=== PATIENT | female | born 1955 | race Caucasian/White ===

== ENCOUNTER → 2016-04-24 | Outpatient (CLI) | payer MEDICARE, OTHER ==
--- NOTE | 2016-04-24 18:19 | PN ---
DATE OF SERVICE: 04/24/2016 A 60-year-old lady who has [facility] of obstructive sleep apnea-hypopnea syndrome. Recently patient was started on treatment with CPAP and she is using equipment every night. Feels better with the machine during the sleep and during the day. [place] Sleepiness Scale today is 5. I discussed with the patient results of the test in detail. I checked the patient's CPAP unit. The CPAP pressure is 13 cm of water. Patient is using equipment 28 out of 30 nights for more than 4 hours. Leak is 11 L/min, which is acceptable range. Apnea-hypopnea index reading from the machine for the last month is 1.0. MEDICATIONS: Coreg, folic acid, metformin, lisinopril, Lasix, Lyrica, aspirin, atorvastatin, [place], Percocet. PHYSICAL EXAMINATION: GENERAL: The patient in no distress. VITAL SIGNS: BP 134/76, HR 94, RR 16. Weight 251. Temp 97.6. Oxygen saturation at room air 94%. HEENT: PERRLA, EOMI, Evaluation of the oropharynx showed low position of soft palate. NECK: Supple. No JVD, Thyroid is not palpable. LUNGS: Clear to percussion and to auscultation. Good air exchange. No wheezing or rhonchi. HEART: S1, S2 regular. No murmurs, gallops, or rubs. ABDOMEN: Obese. Soft and nontender. Bowel sounds are present. No organomegaly appreciated. HOUSE MANAGER: Awake, alert, and oriented x3. Cranial nerves 2 to 7 intact. There is no fasciculation or atrophy noted. No focal deficits observed. IMPRESSION: 1. Mild obstructive sleep apnea-hypopnea syndrome on control with CPAP at 13 cm of water. Patient demonstrated very good compliance with treatment and is benefiting from treatment. 2. Obesity. 3. Hypertension. 4. History of cardiac arrhythmia, status post cardiac ablation. 5. Diabetes mellitus. 6. Hyperlipidemia. 7. History of kidney stones. 8. Status post nephrotomy. 9. Status post section. 10. Status post legs venous surgery. 11. Status post laminectomy. 12. 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 13. Status post hysterectomy. 14. Status post permanent pacemaker insertion. 15. Status post bilateral knee replacement. 16. Status post lithotripsy. PLAN: 1. Patient will continue to use CPAP treatment every night for the whole night. 2. Losing weight. 3. Sleep hygiene with regular time in bed for at least 8 hours. 4. No driving if feeling any sleepiness. Thank you very much for allowing me to participate in the management your patient. Sincerely, Lg Tafoya MD, PhD, FAASM Diplomat of [place] [employer], Sleep Medicine Board by [place] [employer] [place] [employer] Tape Machine Tailer of [facility]
== END | disposition home or self-care (01) ==
LOC: SLEEP 13:46
PROVIDERS: ATTEND Internal Medicine
DX: G47.33 Obstructive sleep apnea (adult) (pediatric) (principal); E66.9 Obesity, unspecified; I49.9 Cardiac arrhythmia, unspecified; E11.9 Type 2 diabetes mellitus without complications; E78.5 Hyperlipidemia, unspecified; Z87.442 Personal history of urinary calculi; Z93.6 Other artificial openings of urinary tract status; Z95.0 Presence of cardiac pacemaker; Z96.653 Presence of artificial knee joint, bilateral; Z79.82 Long term (current) use of aspirin; Z79.899 Other long term (current) drug therapy; Z79.84 Long term (current) use of oral hypoglycemic drugs

== ENCOUNTER 2016-08-02 10:40 | Observation (INO) | payer MEDICARE, OTHER ==
[2016-08-02] MEDS ORDERED: ASPIRIN 81 MG CHEW PO STA (10:50)
--- NOTE | 2016-08-02 10:50 | ED ---
General Adult HPI - General Chief complaint: Chest Pain Stated complaint: Chest Pain/Pacemaker Time Seen by Provider: 08/02/16 10:45 Source: patient, RN notes reviewed, old records reviewed Mode of arrival: wheelchair Limitations: no limitations - History of Present Illness Initial comments: This is a 60-year-old female here for evaluation of chest pain. Patient has history of A. fib high cholesterol hypertensive diabetes. Patient coming in with anterior heavy chest pain shortness of breath and diaphoresis that started about 4:30 AM. Patient did waited out and it did lalitha a little bit. Did get mildly improved with no modifying factors. Patient's pain has continued. She still complaining of chest pain or shortness of breath at this time. No recent travel history no sick contacts no prior cardiac evaluation - Related Data Home Medications Medication Instructions Recorded Confirmed Carvedilol [Coreg] 12.5 mg PO BID 11/04/13 07/05/15 Folic Acid 0.4 mg PO DAILY 11/04/13 07/05/15 Furosemide [Lasix] 10 mg PO HS 11/04/13 07/05/15 Lisinopril [Zestril] 20 mg PO HS 11/04/13 07/05/15 Cyanocobalamin [Vitamin B-12] 500 mcg PO DAILY 05/06/14 07/05/15 Magnesium Oxide [Mag-Ox] 250 mg PO BID 05/06/14 07/05/15 Insulin Aspart [NovoLOG] 9 unit SQ AC-BRKFST 05/29/14 07/05/15 Insulin Detemir [Levemir] 30 unit SQ HS 11/17/14 07/05/15 Insulin Aspart [NovoLOG] 11 unit SQ AC-LUNCH 07/03/15 07/05/15 Insulin Aspart [NovoLOG] 12 unit SQ AC-SUPPER 07/03/15 07/05/15 Pregabalin [Lyrica] 150 mg PO BID PRN 07/03/15 07/05/15 metFORMIN HCL [Glucophage] 500 mg PO BID 07/03/15 07/05/15 Previous Rx's Medication Instructions Recorded Albuterol Nebulized [Ventolin 2.5 mg INHALATION RT-Q4H PRN #0 07/09/15 Nebulized] nebu Docusate [Colace] 100 mg PO BID #60 capsule 07/09/15 HYDROcodone/APAP 10-325MG [[place] 1 tab PO Q4HR PRN #90 tab 07/09/15 10-325] INSULIN LISPRO (humaLOG) [humaLOG 0 unit SQ ACHS vial 07/09/15 (formulary)] Multivitamins, Thera [Multivitamin 1 each PO DAILY@1200 tab 07/09/15 (formulary)] Warfarin [Coumadin] 2.5 mg PO DAILY #28 tab 07/09/15 Allergies Allergy/AdvReac Type Severity Reaction Status Date / Time No Known Allergies Allergy Verified 08/02/16 10:46 Review of Systems ROS Statement: Those systems with pertinent positive or pertinent negative responses have been documented in the HPI. ROS Other: All systems not noted in ROS Statement are negative. Past Medical History Past Medical History: Atrial Fibrillation, Heart Failure, Diabetes Mellitus, Hyperlipidemia, Hypertension, Musculoskeletal Disorder, Osteoarthritis (OA), Sleep Apnea/CPAP/BIPAP Additional Past Medical History / Comment(s): Arrhythmia, Afib-Converted with ablation 05/2013, Cardiomyopathy,DDD, N/T BLE,Scoliosis,Anemia, KIDNEY STONES, CURRENTLY BEING TX FOR YEAST INFECTION IN BLOOD-HAS PICC LINE RT UPPER ARM History of Any Multi-Drug Resistant Organisms: None Reported Past Surgical History: AICD, Back Surgery, Cardiac Ablation, Section, Cholecystectomy, Heart Catheterization, Hysterectomy, Orthopedic Surgery, Pacemaker Additional Past Surgical History / Comment(s): Varicose Vein Stripping,Rt Knee scope, D & C, Colonoscopy, Lithotripsy, Removal of kidney stones,LT TOTAL KNEE REPLACEMENT Past Anesthesia/Blood Transfusion Reactions: No Reported Reaction Additional Past Anesthesia/Blood Transfusion Reaction / Comment(s): HAS HAD NO PROBLEMS WITH PRIOR BLOOD TRANSFUSIONS Type of Cardiac Device: Permanent Pacemaker, AICD Device Placement Date:: 03/14/2011-Metronic LT CHEST Past Psychological History: Anxiety, Depression Additional Psychological History / Comment(s): . Lives with her son in [place]. She is on disability. She has no experience. She has no travel history. She is a lifelong nonsmoker. No history of recreational drug use. No history of alcohol use. No animals in the home at this time. Smoking Status: Never smoker Past Alcohol Use History: None Reported Past Drug Use History: None Reported - Past Family History Father Family Medical History: Cancer Brother(s) Family Medical History: Cancer Sister(s) Family Medical History: Cancer Mother Family Medical History: Cancer General Exam Limitations: no limitations General appearance: alert, in no apparent distress Head exam: Present: atraumatic, normocephalic, normal inspection Eye exam: Present: normal appearance, PERRL, EOMI. Absent: scleral icterus, conjunctival injection, periorbital swelling ENT exam: Present: normal exam, mucous membranes moist Neck exam: Present: normal inspection. Absent: tenderness, meningismus, lymphadenopathy Respiratory exam: Present: normal lung sounds bilaterally. Absent: respiratory distress, wheezes, rales, rhonchi, stridor Cardiovascular Exam: Present: regular rate, normal rhythm, normal heart sounds. Absent: systolic murmur, diastolic murmur, rubs, gallop, clicks GI/Abdominal exam: Present: soft, normal bowel sounds. Absent: distended, tenderness, guarding, rebound, rigid Extremities exam: Present: normal inspection, full ROM, normal capillary refill. Absent: tenderness, pedal edema, joint swelling, calf tenderness Back exam: Present: normal inspection Neurological exam: Present: alert, oriented X3, CN II-XII intact Psychiatric exam: Present: normal affect, normal mood Skin exam: Present: warm, dry, intact, normal color. Absent: rash Course Vital Signs 08/02/16 08/02/16 08/02/16 10:44 11:00 11:30 Temperature 99.0 F Pulse Rate 59 L 58 L 54 L Respiratory 20 18 16 Rate Blood Pressure 120/85 129/59 134/73 O2 Sat by Pulse 99 98 95 Oximetry 08/02/16 12:07 Temperature Pulse Rate 54 L Respiratory 18 Rate Blood Pressure 136/70 O2 Sat by Pulse 96 Oximetry - Reevaluation(s) Reevaluation #1: 08/02/16 12:15 At this point patient still is with chest pain EKG Findings - EKG Comments: EKG Findings:: EKG shows sinus rhythm rate of 62, ID 170, QRS 140, QTC 468, occasional PVC Medical Decision Making - Medical Decision Making 60 [id number] chest pain, typical chest pain in a patient with high risk, high cardiac risk, patient will be admitted for anticoagulation, serial troponins and cardiac observation - Lab Data Result diagrams: 08/02/16 10:55 08/02/16 10:55 Lab Results 0608/02/16 08/02/16 Range/Units 10:55 10:55 10:55 WBC 4.7 (3.8-10.6) k/uL RBC 3.70 L (3.80-5.40) m/uL Hgb 11.2 L (11.4-16.0) gm/dL Hct 33.8 L (34.0-46.0) % MCV 91.3 (80.0-100.0) fL MCH 30.3 (25.0-35.0) pg MCHC 33.1 (31.0-37.0) g/dL RDW 15.1 (11.5-15.5) % Plt Count 109 L (150-450) k/uL Neutrophils % 57 % Lymphocytes % 29 % Monocytes % 5 % Eosinophils % 6 % Basophils % 0 % Neutrophils # 2.7 (1.3-7.7) k/uL Lymphocytes # 1.4 (1.0-4.8) k/uL Monocytes # 0.3 (0-1.0) k/uL Eosinophils # 0.3 (0-0.7) k/uL Basophils # 0.0 (0-0.2) k/uL PT (9.0-12.0) sec INR (<1.1) APTT (22.0-30.0) sec Sodium 144 (137-145) mmol/L Potassium 4.3 (3.5-5.1) mmol/L Chloride 110 H (98-107) mmol/L Carbon Dioxide 26 (22-30) mmol/L Anion Gap 8 mmol/L BUN 34 H (7-17) mg/dL Creatinine 1.00 (0.52-1.04) mg/dL Est GFR (MDRD) Af Amer >60 (>60 ml/min/1.73 sqM) Est GFR (MDRD) Non-Af 56 (>60 ml/min/1.73 sqM) Glucose 198 H (74-99) mg/dL Calcium 9.2 (8.4-10.2) mg/dL Magnesium 1.8 (1.6-2.3) mg/dL Total Bilirubin 0.9 (0.2-1.3) mg/dL AST 24 (14-36) U/L ALT 29 (9-52) U/L Alkaline Phosphatase 93 (38-126) U/L Total Creatine Kinase 122 (30-135) U/L CK-MB (CK-2) 0.8 (0.0-2.4) ng/mL CK-MB (CK-2) Rel Index 0.7 Troponin I <0.012 (0.000-0.034) ng/mL Total Protein 6.2 L (6.3-8.2) g/dL Albumin 3.7 (3.5-5.0) g/dL Lipase (23-300) U/L 08/02/16 08/02/16 Range/Units 10:55 10:55 WBC (3.8-10.6) k/uL RBC (3.80-5.40) m/uL Hgb (11.4-16.0) gm/dL Hct (34.0-46.0) % MCV (80.0-100.0) fL MCH (25.0-35.0) pg MCHC (31.0-37.0) g/dL RDW (11.5-15.5) % Plt Count (150-450) k/uL Neutrophils % % Lymphocytes % % Monocytes % % Eosinophils % % Basophils % % Neutrophils # (1.3-7.7) k/uL Lymphocytes # (1.0-4.8) k/uL Monocytes # (0-1.0) k/uL Eosinophils # (0-0.7) k/uL Basophils # (0-0.2) k/uL PT 10.8 (9.0-12.0) sec INR 1.1 (<1.1) APTT 23.0 (22.0-30.0) sec Sodium (137-145) mmol/L Potassium (3.5-5.1) mmol/L Chloride (98-107) mmol/L Carbon Dioxide (22-30) mmol/L Anion Gap mmol/L BUN (7-17) mg/dL Creatinine (0.52-1.04) mg/dL Est GFR (MDRD) Af Amer (>60 ml/min/1.73 sqM) Est GFR (MDRD) Non-Af (>60 ml/min/1.73 sqM) Glucose (74-99) mg/dL Calcium (8.4-10.2) mg/dL Magnesium (1.6-2.3) mg/dL Total Bilirubin (0.2-1.3) mg/dL AST (14-36) U/L ALT (9-52) U/L Alkaline Phosphatase (38-126) U/L Total Creatine Kinase (30-135) U/L CK-MB (CK-2) (0.0-2.4) ng/mL CK-MB (CK-2) Rel Index Troponin I (0.000-0.034) ng/mL Total Protein (6.3-8.2) g/dL Albumin (3.5-5.0) g/dL Lipase 164 (23-300) U/L - Radiology Data Radiology results: report reviewed (Chest x-ray is negative for acute disease), image reviewed Critical Care Time Critical Care Time: Yes Total Critical Care Time: 31 Disposition Clinical Impression: Chest pain Disposition: ADMITTED IP TO THIS [facility] Condition: Undetermined Referrals: Vishal Snell MD [Primary Care Provider] - 1-2 days
[2016-08-02 11:15] LABS: Basophils % (A) 0 %; CH 30.7; CHCM 33.8; Eosinophils # (A) 0.3 k/uL (0-0.7); Eosinophils % (A) 6 %; HCT 33.8 % (34.0-46.0); HDW 3.15; HGB 11.2 gm/dL (11.4-16.0); Luc # (Auto) 0.11; Luc % (Auto) 2; Lymphocytes # (A) 1.4 k/uL (1.0-4.8); Lymphocytes % (A) 29 %; MCH 30.3 pg (25.0-35.0); MCHC 33.1 g/dL (31.0-37.0); MCV 91.3 fL (80.0-100.0); Mean Platelet Volume 8.1; Monocytes # (A) 0.3 k/uL (0-1.0); Monocytes % (A) 5 %; Neutrophils # (A) 2.7 k/uL (1.3-7.7); Neutrophils % (A) 57 %; RDW 15.1 % (11.5-15.5); WBC 4.7 k/uL (3.8-10.6); WBC (Perox) 4.75
--- NOTE | 2016-08-02 11:35 | XR ---
EXAMINATION TYPE: XR chest 2V DATE OF EXAM: 08/02/2016 COMPARISON: 07/07/2015 HISTORY: Shortness of breath TECHNIQUE: Frontal and lateral views of the chest are obtained. FINDINGS: Scattered senescent parenchymal changes noted. Hyperinflation compatible with COPD. No evidence for infiltrate. No evidence for atelectasis. Heart size is stable. Mediastinal structures are stable and grossly unremarkable. No evidence for hilar prominence. Degenerative changes dorsal spine. IMPRESSION: 1. No evidence for acute pulmonary disease.
[2016-08-02 11:37] LABS: Creatine Kinase 122 U/L (30-135)
[2016-08-02 11:39] LABS: ALT 29 U/L (9-52); AST 24 U/L (14-36); Alkaline Phosphatase 93 U/L (38-126); Anion Gap 8 mmol/L; Blood Urea Nitrogen 34 mg/dL (7-17); Calcium 9.2 mg/dL (8.4-10.2); Carbon Dioxide 26 mmol/L (22-30); Chloride 110 mmol/L (98-107); Glucose 198 mg/dL (74-99); Magnesium 1.8 mg/dL (1.6-2.3); Non-African American GFR(MDRD) 56 (>60 ml/min/1.73 sqM); Potassium 4.3 mmol/L (3.5-5.1); Sodium 144 mmol/L (137-145); Total Bilirubin 0.9 mg/dL (0.2-1.3); Total Protein 6.2 g/dL (6.3-8.2)
[2016-08-02 11:46] LABS: INR 1.1 (<1.1); Prothrombin Time 10.8 sec (9.0-12.0)
[2016-08-02 11:49] LABS: Creatine Kinase MB 0.8 ng/mL (0.0-2.4); Troponin I <0.012 ng/mL (0.000-0.034)
[2016-08-02] MEDS: NITROGLYCERIN SL TABS 0.4 MG TAB SUBLINGUAL PRN ×2 (12:11→12:20)
[2016-08-02] MEDS ORDERED: HEPARIN SODIUM,PORCINE 5,000 UNIT/ML 1 ML VIAL IV PRN (12:16)
[2016-08-02] MEDS ORDERED: HEPARIN SODIUM,PORCINE 5,000 UNIT/ML 1 ML VIAL IV ONE (12:16)
[2016-08-02] MEDS: HEPARIN SODIUM,PORCINE/D5W PMX 25,000 UNIT in DEXTROSE/WATER 1 500ML.BAG IV SCH (12:33)
[2016-08-02 14:07] VITALS: BMI 43.0
[2016-08-02] MEDS ORDERED: ALBUTEROL NEBULIZED 2.5 MG/3 ML INHALATION PRN (15:12)
[2016-08-02] MEDS ORDERED: oxyCODONE-APAP 10-325MG 1 EACH TAB PO PRN (15:12)
[2016-08-02 17:04] LABS: Glucose,Whole Blood 150 mg/dL (75-99)
[2016-08-02] MEDS: BUTALB/APAP/CAFF 50-325-40MG TAB PO PRN ×2 (17:38→23:10)
[2016-08-02] MEDS: INSULIN LISPRO (humaLOG) 300 UNIT/3 ML VIAL SQ SCH (18:14)
[2016-08-02] MEDS: metFORMIN 500 MG TAB PO SCH (19:44)
[2016-08-02] MEDS: CARVEDILOL 12.5 MG TAB PO SCH (19:45)
[2016-08-02 20:08] LABS: Glucose,Whole Blood 135 mg/dL (75-99)
[2016-08-02 20:16] LABS: Creatine Kinase 98 U/L (30-135); Creatine Kinase MB 0.7 ng/mL (0.0-2.4); Troponin I <0.012 ng/mL (0.000-0.034)
[2016-08-02] MEDS ORDERED: PREGABALIN 75 MG CAP PO SCH (21:00)
[2016-08-02] MEDS ORDERED: INSULIN DETEMIR 100 UNIT/ML 10 ML VIAL SQ SCH (21:00)
[2016-08-02] MEDS ORDERED: ATORVASTATIN 20 MG TAB PO SCH (21:00)
[2016-08-02] MEDS ORDERED: FUROSEMIDE 20 MG TAB PO SCH (21:00)
[2016-08-02] MEDS ORDERED: LISINOPRIL 20 MG TAB PO SCH (21:00)
[2016-08-02] MEDS ORDERED: ONDANSETRON 4 MG/2 ML VIAL IVP PRN (21:28)
[2016-08-02 23:39] LABS: Creatine Kinase 87 U/L (30-135)
[2016-08-02 23:54] LABS: Creatine Kinase MB 0.7 ng/mL (0.0-2.4); Troponin I <0.012 ng/mL (0.000-0.034)
[2016-08-03] MEDS: HEPARIN SODIUM,PORCINE/D5W PMX 25,000 UNIT in DEXTROSE/WATER 1 500ML.BAG IV SCH (06:43)
[2016-08-03 06:46] LABS: Glucose,Whole Blood 101 mg/dL (75-99)
[2016-08-03 07:25] LABS: INR 1.1 (<1.1); Prothrombin Time 11.2 sec (9.0-12.0)
[2016-08-03] MEDS ORDERED: INSULIN LISPRO (humaLOG) 300 UNIT/3 ML VIAL SQ SCH ×2 (07:30→12:30)
[2016-08-03 07:47] LABS: Basophils % (A) 1 %; CH 30.2; Eosinophils # (A) 0.2 k/uL (0-0.7); Eosinophils % (A) 6 %; HCT 32.6 % (34.0-46.0); HDW 2.97; HGB 10.3 gm/dL (11.4-16.0); Hypochromasia Slight; Luc # (Auto) 0.08; Luc % (Auto) 2; Lymphocytes # (A) 1.3 k/uL (1.0-4.8); Lymphocytes % (A) 34 %; MCH 30.1 pg (25.0-35.0); MCHC 31.7 g/dL (31.0-37.0); MCV 94.9 fL (80.0-100.0); Mean Platelet Volume 8.8; Monocytes # (A) 0.3 k/uL (0-1.0); Monocytes % (A) 8 %; Neutrophils # (A) 1.9 k/uL (1.3-7.7); Neutrophils % (A) 50 %; RBC 3.44 m/uL (3.80-5.40); RDW 15.5 % (11.5-15.5); WBC 3.8 k/uL (3.8-10.6); WBC (Perox) 3.84
[2016-08-03] MEDS: IPRATROPIUM-ALBUTEROL 3 ML NEB INHALATION SCH ×2 (07:54→13:56)
[2016-08-03 08:15] LABS: Cholesterol 101 mg/dL (<200); HDL Cholesterol 54 mg/dL (40-60); Triglycerides 110 mg/dL (<150)
[2016-08-03 08:46] VITALS: RESP 16
[2016-08-03 08:47] LABS: Manual Review Performed
[2016-08-03] MEDS ORDERED: SERTRALINE 50 MG TAB PO SCH (09:00)
[2016-08-03] MEDS ORDERED: FOLIC ACID 1 MG TAB PO SCH (09:00)
[2016-08-03] MEDS ORDERED: CALCIUM CARB-VIT D 500MG-200UN 1 EACH TAB PO SCH (09:00)
[2016-08-03] MEDS ORDERED: CYANOCOBALAMIN 500 MCG TAB PO SCH (09:00)
[2016-08-03] MEDS ORDERED: ASPIRIN 325 MG TAB PO SCH (09:00)
[2016-08-03] MEDS ORDERED: MAGNESIUM OXIDE 400 MG TAB PO SCH (09:00)
[2016-08-03] MEDS: metFORMIN 500 MG TAB PO SCH (09:01)
--- NOTE | 2016-08-03 09:38 | CONS ---
DATE OF CONSULTATION: CHIEF COMPLAINT: Chest pain. Yani is a 60-year-old lady with history of cardiomyopathy, status post AICD, insulin-requiring diabetes, hypertension, dyslipidemia, who presented to the hospital complaining of chest discomfort. She describes it is an epigastric discomfort that radiated to the right side. It gradually subsided on its own but did not go away fully. Due to this, she was concerned and came to hospital. At the time of my evaluation, she appears comfortable at rest and is free of symptoms. Her cardiac enzymes have been negative so far and the hemoglobin is 10.3. EKG does not reveal acute ischemic changes. Given the fact that the patient had a cardiac catheterization in 2013 that did not reveal significant obstructive CAD, her symptoms are atypical. EKG does not reveal ischemic changes and cardiac enzymes are negative. I am going to stop the IV heparin and ambulate her and if she is feeling well discharge her home and consider an outpatient follow-up with Dr. Donnie Ling, her primary toll gate keeper. She may need an outpatient stress test. Past medical history is significant for hypertension, diabetes, dyslipidemia. Current medications include: 1. Metformin 500 b.i.d. 2. Zoloft. 3. Lyrica. 4. Zestril 20 daily. 5. Insulin. 6. Folic acid. 7. Coreg 12.5 b.i.d. 8. Lipitor. 9. Aspirin. 10. Ventolin. No known drug allergies. FAMILY HISTORY: Negative for premature coronary artery disease. SOCIAL HISTORY: Negative for current smoking, ETOH abuse, or drug abuse. REVIEW OF SYSTEMS: HEENT: Unremarkable. CARDIAC: As described above. RESPIRATORY: Negative. GI: Negative. GENITOURINARY: Negative. Allergy/immunology: Negative. MUSCULOSKELETAL: Significant for arthritis. PSYCHOSOCIAL: Negative. Dermatology: Negative. CONSTITUTIONAL: Negative. Oncological: Negative. HEMATOLOGICAL: Negative. The rest of the system review is not relevant. On exam, heart rate is 60 beats per minute, blood pressure is 103/54. Respiratory rate 18, O2 sat is 97% on room air. There is no jugular venous distention. Carotid upstroke is normal. There is no bruit. Chest exam reveals good air entry bilaterally. Heart exam reveals first and second heart sounds. No gallop. No murmur, no rub. ABDOMEN: Soft, nontender. Exam of the extremities did not reveal any edema. Peripheral pulses are felt. CONVENTION SERVICES MANAGER exam did not reveal focal neurological deficits. ASSESSMENT: Precordial chest pain, atypical, probably noncardiac in origin. PLAN: Myocardial infarction is ruled out. Patient is feeling well, we can discharge her home and arrange outpatient follow-up with Dr. Donnie Ling.
[2016-08-03 12:26] LABS: Glucose,Whole Blood 157 mg/dL (75-99)
[2016-08-03] MEDS: CARVEDILOL 12.5 MG TAB PO SCH (13:25)
[2016-08-03] MEDS: BUTALB/APAP/CAFF 50-325-40MG TAB PO PRN (13:29)
[2016-08-03 13:55] LABS: Hemoglobin A1C 7.6 % (4.2-6.1)
--- NOTE | 2016-08-03 15:20 | HP ---
DATE OF ADMISSION: 08/02/2016 Yani Andino is a 60-year-old female who presented to the ED at [facility] with chest pain. This was located retrosternally associated with some shortness of breath and diaphoresis. This started at about 4:30 in the morning. She subsequently was seen in the ED and admitted for further evaluation and management. PAST MEDICAL HISTORY: Positive for atrial fibrillation, congestive heart failure, history of pacemaker placement, history of obstructive sleep apnea for which she is on CPAP, diabetes mellitus, hyperlipidemia, hypertension, osteoarthritis, atrial fibrillation with previous ablation, history of cardiac arrhythmia, cardiomyopathy, scoliosis, anemia, kidney stones and back surgery, and varicose vein stripping, right knee arthroscopy, D&C, colonoscopy, left total knee replacement. FAMILY HISTORY: Positive for coronary artery disease in her father who had VT in his 50s. SOCIAL HISTORY: Patient is a never smoker, does not drink alcohol excessively. Medications prior to admission were: 1. Acetaminophen with oxycodone. 2. Glucophage. 3. Oral Ellipta. 4. Zoloft. 5. Lyrica. 6. Multivitamin. 7. Magnesium oxide. 8. Lisinopril. 9. Levemir. 10. NovoLog. 11. Lasix. 12. Folic acid. 13. Vitamin B12. 14. Coreg. 15. Calcium with vitamin D. 16. Butalbital. 17. Acetaminophen and Caffeine in the form of Fioricet. 18. Lipitor. 19. Aspirin. 20. Albuterol nebulized. REVIEW OF SYSTEMS: Positive for obesity. On physical examination, blood pressure is 90/47, respiratory rate 16, pulse of 52, O2 sat on 2 liters by nasal cannula is 95%. Temperature is 98.1. HEENT reveals pupils that are equal. ( ) posterior pharynx. Chest is clear. Cardiovascular system reveals an S1, S2. ABDOMEN: Soft. There is no pedal edema. White count is 3.8, hemoglobin 10.3, glucose of 101, LDL is 25, HDL 54, cholesterol 101, triglycerides 110, troponin less than 0.012. Chest x-ray shows no acute process. IMPRESSION AT THIS TIME: 1. Chest pain due to cardiac etiology versus other etiology. 2. Possible myocardial infarction. 3. Diabetes mellitus. 4. Obstructive sleep apnea. 5. Obesity. At this point in time, patient will be seen by cardiology and VT will be ruled in or ruled out based on serial CPKs and EKGs. If she rules out for VT and is doing better, discharge planning will be for later today. If she is otherwise stable with close follow up with Dr. Donnie Ling who is a bench worker apprentice most likely in the next 24 to 48 hours. Depending on how she does, we shall make further changes to her care. We appreciate the Cardiology input. Her prognosis at this time is fair.
[2016-08-03 17:00] VITALS: BP 106/50; PULSE 66; TEMP 98.2
[2016-08-03 17:04] LABS: Glucose,Whole Blood 72 mg/dL (75-99)
[2016-08-03] MEDS: INSULIN LISPRO (humaLOG) 300 UNIT/3 ML VIAL SQ SCH (17:43)
== END 2016-08-03 19:20 | disposition home or self-care (01) ==
LOC: SUPCPDRO 10:40 → EC 10:40 → 3OBS 12:15
PROVIDERS: ADMIT Family Medicine; ATTEND Family Medicine
DX: R07.89 Other chest pain (principal); R06.02 Shortness of breath; R10.13 Epigastric pain; R61 Generalized hyperhidrosis; R07.2 Precordial pain; I50.9 Heart failure, unspecified; I11.0 Hypertensive heart disease with heart failure; I42.9 Cardiomyopathy, unspecified; I48.91 Unspecified atrial fibrillation; E78.5 Hyperlipidemia, unspecified; E78.00 Pure hypercholesterolemia, unspecified; E66.9 Obesity, unspecified; E11.9 Type 2 diabetes mellitus without complications; M19.90 Unspecified osteoarthritis, unspecified site; F41.9 Anxiety disorder, unspecified; F32.9 Major depressive disorder, single episode, unspecified; D64.9 Anemia, unspecified; Z99.89 Dependence on other enabling machines and devices; G47.33 Obstructive sleep apnea (adult) (pediatric); Z95.0 Presence of cardiac pacemaker; Z79.899 Other long term (current) drug therapy; Z79.82 Long term (current) use of aspirin; Z79.4 Long term (current) use of insulin; Z79.84 Long term (current) use of oral hypoglycemic drugs; Z95.828 Presence of other vascular implants and grafts
CPT/HCPCS: 99291; 96365; 96366; 96375; 96376; 36415; 94640 ×2; 93005 ×2; 80061; 80053; 83036; 82550; 82553; 83690; 83735; 84484; 85025 ×2; 85610 ×2; 85730; 71020; G0378 ×2; J1644 ×3; J2405

== ENCOUNTER → 2016-10-27 | Outpatient (CLI) | payer MEDICARE, OTHER ==
--- NOTE | 2016-10-27 13:03 | CT ---
EXAMINATION TYPE: CT chest wo con DATE OF EXAM: 10/27/2016 COMPARISON: NONE HISTORY: Patient complains of right upper lobe pain. CT DLP: 821 mGycm, Automated exposure control for dose reduction was used. CONTRAST: Performed injected with 0 mL of Omnipaque 300. TECHNIQUE: Axial images were obtained at 5 mm thick sections. Reconstructed images are reviewed on [employer] computer in the coronal plane. FINDINGS: Portion of the thyroid visualized is normal. No suspicious lung nodules or focal infiltrates are present. No enlarged mediastinal or hilar adenopathy is evident. The ascending aorta diameter at the level o f the main pulmonary artery is 4.1 cm. The main pulmonary artery diameter at the bifurcation is 3.9 cm. Coronary artery calcification is present. Limited CT sections are obtained through the upper abdomen. Abdomen is essentially unremarkable. IMPRESSIONS: 1. No acute process. 2. Ascending aortic aneurysm of 4.1 cm.
== END | disposition home or self-care (01) ==
LOC: RADCTMAIN 11:53
PROVIDERS: ATTEND Family Medicine
DX: I71.2 Thoracic aortic aneurysm, without rupture (principal)
CPT/HCPCS: 71250

== ENCOUNTER → 2017-10-19 | Outpatient (CLI) | payer MEDICARE, OTHER ==
--- NOTE | 2017-10-19 18:54 | CT ---
EXAMINATION TYPE: CT chest wo con DATE OF EXAM: 10/19/2017 COMPARISON: 10/27/2016 HISTORY: Ascending aortic aneurysm CT DLP: 1061.7 mGycm, Automated exposure control for dose reduction was used. CONTRAST: Performed injected with 0 mL of Isovue 300. TECHNIQUE: Axial images were obtained at 5 mm thick sections. Reconstructed images are reviewed on [employer] computer in the coronal plane. FINDINGS: Portion of the thyroid visualized is normal. No suspicious lung nodules or focal infiltrates are present. No enlarged mediastinal or hilar adenopathy is evident. The ascending aorta diameter at the level o f the main pulmonary artery is 3.8 cm. The main pulmonary artery diameter at the bifurcation is 3.7 cm. Coronary artery calcification is present. Limited CT sections are obtained through the upper abdomen. Abdomen is essentially unremarkable. IMPRESSIONS: 1. No acute changes. 2. Current measurement of the ascending aorta is 3.9 cm, which is less than the 4.1 cm previous
== END | disposition home or self-care (01) ==
LOC: RADCTMAIN 11:51
PROVIDERS: ATTEND Thoracic Surgery (Cardiothoracic Vascular Surgery)
DX: I71.2 Thoracic aortic aneurysm, without rupture (principal)
CPT/HCPCS: 71250

== ENCOUNTER → 2018-10-19 | Outpatient (CLI) | payer MEDICARE, OTHER ==
--- NOTE | 2018-10-19 15:15 | CT ---
EXAMINATION TYPE: CT chest wo con DATE OF EXAM: 10/19/2018 COMPARISON: 10/19/2017 and 10/27/2016 HISTORY: 62-year-old female AAA TECHNIQUE: Contiguous axial scanning of the chest without IV contrast. Coronal and sagittal reconstru ctions performed. CT DLP: 823 mGycm Automated exposure control for dose reduction was used. FINDINGS: Heart is borderline to mildly enlarged without pericardial effusion. Left anterior chest wall AICD generator with right ventricular lead. Scattered coronary vessel calcifications are present. Aortic root measures 4.1 cm versus 4.3 cm, previously. Ascending aorta measures 3.7 cm, relatively unchanged. Conventional vessel branching anatomy. Upper descending thoracic aorta measures 3.4 cm, unchanged. Lower descending thoracic aorta measures 2.7 cm. No consolidation or pleural effusion. Possible rounded lesion at the upper pole the left kidney may represent a cyst. This could be confirm ed with renal ultrasound. It seems to have been present previously. Cholecystectomy clips. Prominent distribution within the stomach. Bones: Accentuated mid thoracic kyphosis with bridging anterior endplate spondylosis suggestive of DI SH. IMPRESSION: 1. ON THE PRESENT EXAM, THE AORTIC ROOT MEASURES MILDLY ANEURYSMAL AT 4.1 CM VERSUS 4.3 CM, PREVIOUSL Y. ESSENTIALLY STABLE. 2. ASCENDING AORTA IS ECTATIC AT 3.7 CM, RELATIVELY UNCHANGED. 3. UPPER DESCENDING THORACIC AORTA IS MILDLY ANEURYSMAL AT 3.4 CM, UNCHANGED. 4. POSSIBLE ROUNDED LESION MEASURING UP TO 3.0 CM AT THE UPPER POLE OF THE LEFT KIDNEY. THIS MAY REPR ESENT A CYST. RECOMMEND CONFIRMATION WITH RENAL ULTRASOUND.
== END | disposition home or self-care (01) ==
LOC: RADCTMAIN 14:21
PROVIDERS: ATTEND Family Medicine
DX: I71.2 Thoracic aortic aneurysm, without rupture (principal)
CPT/HCPCS: 71250

== ENCOUNTER → 2018-10-19 | Outpatient (CLI) | payer MEDICARE, OTHER ==
[2018-10-19 11:32] LABS: Calcium 9.3 mg/dL (8.4-10.2); Potassium 4.4 mmol/L (3.5-5.1); Total Bilirubin 0.8 mg/dL (0.2-1.3); Total Protein 6.6 g/dL (6.3-8.2)
[2018-10-19 11:33] LABS: Anisocytosis Slight; Basophils % (A) 0 %; Eosinophils # (A) 0.2 k/uL (0-0.7); Eosinophils % (A) 2 %; HCT 38.3 % (34.0-46.0); HGB 12.3 gm/dL (11.4-16.0); Lymphocytes # (A) 1.5 k/uL (1.0-4.8); Lymphocytes % (A) 19 %; MCH 30.1 pg (25.0-35.0); MCHC 32.2 g/dL (31.0-37.0); MCV 93.3 fL (80.0-100.0); Mean Platelet Volume 9.1; Monocytes # (A) 0.5 k/uL (0-1.0); Monocytes % (A) 7 %; Neutrophils # (A) 5.6 k/uL (1.3-7.7); Neutrophils % (A) 70 %; Platelet Count 137 k/uL (150-450)
[2018-10-19 11:43] LABS: Cholesterol 126 mg/dL (<200); HDL Cholesterol 48 mg/dL (40-60); LDL Cholesterol,Calculated 48 mg/dL (0-99); Triglycerides 151 mg/dL (<150)
[2018-10-19 12:01] LABS: Appearance,Urine Clear (Clear); Bacteria,Urine Rare /hpf; Bilirubin,Urine Negative (Negative); Blood,Urine Moderate (Negative); Color,Urine Yellow; Glucose,Urine (UA) Negative (Negative); Ketones,Urine Negative (Negative); Leukocyte Esterase,Urine Negative (Negative); Mucus,Urine Rare /hpf; Nitrite,Urine Negative (Negative); Protein,Urine Negative (Negative); RBC,Urine 10 /hpf (0-5); Specific Gravity,Urine 1.015 (1.001-1.035); Squamous Epithelial Cell,Urine 1 /hpf (0-4); Urobilinogen,Urine <2.0 mg/dL (<2.0); WBC,Urine 2 /hpf (0-5)
--- NOTE | 2018-10-19 14:47 | XR ---
EXAMINATION TYPE: XR chest 2V DATE OF EXAM: 10/19/2018 COMPARISON: Prior chest 08/02/2016 HISTORY: Thoracic aortic aneurysm without rupture TECHNIQUE: Frontal and lateral views of the chest are obtained. FINDINGS: Patient is rotated. There is a generator in the left pectoral region, intracardiac defibril lator lead is present. There is no focal air space opacity, pleural effusion, or pneumothorax seen. The cardiac silhouette size is stable and possibly enlarged. Aorta appears aneurysmal. The osseous s tructures are intact. IMPRESSION: Stable exam, no acute abnormality. Thoracic aortic aneurysm.
[2018-10-19 19:06] LABS: Hemoglobin A1C 8.3 % (4.0-6.0)
[2018-10-19 21:11] LABS: Urine Creatinine 85.3 mg/dL
== END | disposition home or self-care (01) ==
LOC: RADCTMAIN 10:22
PROVIDERS: ATTEND Thoracic Surgery (Cardiothoracic Vascular Surgery)
DX: I71.2 Thoracic aortic aneurysm, without rupture (principal); J44.9 Chronic obstructive pulmonary disease, unspecified; M47.26 Other spondylosis with radiculopathy, lumbar region; E11.9 Type 2 diabetes mellitus without complications; I10 Essential (primary) hypertension
CPT/HCPCS: 71046; 71250; 80053; 80061; 81001; 82043; 82570; 83036; 85025; 85730; 86850; 87070

== ENCOUNTER → 2018-10-29 | Outpatient (CLI) | payer MEDICARE, OTHER ==
[~2018-10-29] MED LIST: REGADENOSON 0.4 MG/5 ML SYRINGE IV ONE
--- NOTE | 2018-10-29 11:44 | EST ---
EXERCISE STRESS DATE OF SERVICE: 10/29/2018 AGE: 62 SEX: Female HT: 65 WT: 267 pounds PROTOCOL: Lexiscan Cardiolite STAGE: DURATION OF EXERCISE: HEART RATE REST: 57 BLOOD PRESSURE REST: 101/59 MAXIMUM HEART RATE ACHIEVED: 75 MAXIMUM BLOOD PRESSURE: 101/59 85% MPHR: 133 100% MPHR: 151 METS: INDICATIONS: Pre-op, abnormal EKG. CLINICAL INFORMATION: Baseline EKG shows a paced rhythm with secondary ST-T wave changes. The patient was given intravenous Lexiscan as per protocol, did not have chest pain and the EKG changes are nondiagnostic. CONCLUSIONS: 1. Inconclusive EKG part of the stress test due to baseline EKG abnormalities. 2. Cardiolite portion of the stress test will be reported separately. MMODL / IJN: [id number] /
--- NOTE | 2018-10-29 13:24 | NM ---
"EXAMINATION TYPE: NM stress lexiscan cardiolite DATE OF EXAM: 10/29/2018 COMPARISON: NONE HISTORY: Chest pain TECHNIQUE: After the intravenous administration of 10.2 mCi Tc 99m Sestamibi - Cardiolite resting SP ECT images acquired 45 minutes post injection. The patient received 0.4mg Lexiscan, 25.8 mCi Tc 99m Sestamibi - Stress images obtained [address] injection FINDINGS: Review of stress and rest SPECT images demonstrates a area of stress-induced reversible ischemia invo lving the apex of the myocardium. There is a predominantly fixed defects involving the inferior septu m. Small area of reversibility not excluded.. Gated analysis shows reduced wall motion with an estim ated left ventricular ejection fraction of 25 %. IMPRESSION: 1. Findings are suggestive of a area of stress-induced reversible ischemia involving the apex of the myocardium. Report called to referring clinician. 2. Reduced wall motion activity within ejection fraction of only 25%. A [place] level critical message alert has been initiated for Vishal Snell MD via the [employer] 36 0 | Critical Results System on 10/29/2018 1:22 PM. This message alert has been sent to Vishal Snell MD via the preferences provided by the clinician for the receipt of Radiology Critical Findings. [facility] ID [id number]."
== END | disposition home or self-care (01) ==
LOC: RADNMMAIN 07:51
PROVIDERS: ATTEND Family Medicine
DX: I50.9 Heart failure, unspecified (principal)
CPT/HCPCS: 93017; 78452; A9500; J2785

== ENCOUNTER 2018-11-02 12:02 | Inpatient (IN) | payer MEDICARE, OTHER ==
[2018-11-02 14:21] VITALS: BMI 44.1
[2018-11-02 14:53] LABS: Albumin 4.2 g/dL (3.5-5.0); Calcium 9.5 mg/dL (8.4-10.2); Total Bilirubin 1.3 mg/dL (0.2-1.3); Total Protein 6.9 g/dL (6.3-8.2)
[2018-11-02 15:07] LABS: Potassium 4.5 mmol/L (3.5-5.1)
[2018-11-02 15:58] LABS: Anisocytosis Slight; Basophils % (A) 1 %; Eosinophils # (A) 0.1 k/uL (0-0.7); Eosinophils % (A) 2 %; HCT 36.2 % (34.0-46.0); HGB 11.7 gm/dL (11.4-16.0); Lymphocytes # (A) 1.2 k/uL (1.0-4.8); Lymphocytes % (A) 21 %; MCH 30.2 pg (25.0-35.0); MCHC 32.2 g/dL (31.0-37.0); MCV 93.8 fL (80.0-100.0); Mean Platelet Volume 8.9; Monocytes # (A) 0.3 k/uL (0-1.0); Monocytes % (A) 6 %; Neutrophils # (A) 3.8 k/uL (1.3-7.7); Neutrophils % (A) 69 %; Platelet Count 120 k/uL (150-450); RBC 3.86 m/uL (3.80-5.40); RDW 16.5 % (11.5-15.5); WBC 5.5 k/uL (3.8-10.6)
[2018-11-02] MEDS ORDERED: ALBUTEROL NEBULIZED 2.5 MG/3 ML INHALATION PRN (16:07)
[2018-11-02 16:54] LABS: Glucose,Whole Blood 120 mg/dL (75-99)
[2018-11-02] MEDS: INSULIN ASPART (NovoLOG) 100 UNIT/ML VIAL SQ SCH (17:03)
[2018-11-02] MEDS: MIDODRINE 5 MG TAB PO SCH (17:03)
[2018-11-02] MEDS: SODIUM CHLORIDE 0.9% 1,000 ML IV SCH (17:03)
[2018-11-02] MEDS ORDERED: FUROSEMIDE 40 MG TAB PO SCH (21:00)
[2018-11-02 21:20] LABS: Glucose,Whole Blood 131 mg/dL (75-99)
[2018-11-02] MEDS: MONTELUKAST 10 MG TAB PO SCH (21:49)
[2018-11-02] MEDS: ATORVASTATIN 20 MG TAB PO SCH (21:49)
[2018-11-02] MEDS: CYCLOBENZAPRINE 5 MG TAB PO SCH (21:49)
[2018-11-02] MEDS: METOPROLOL TARTRATE 25 MG TAB PO SCH ×2 (21:49→21:51)
[2018-11-02] MEDS: oxyCODONE-APAP 10-325MG 1 EACH TAB PO PRN (21:49)
[2018-11-02] MEDS: INSULIN DETEMIR (LEVEMIR) 100 UNIT/ML SYR SQ SCH (21:52)
[2018-11-03] MEDS: oxyCODONE-APAP 10-325MG 1 EACH TAB PO PRN ×2 (03:30→18:10)
[2018-11-03 06:54] LABS: Glucose,Whole Blood 124 mg/dL (75-99)
[2018-11-03] MEDS: SODIUM CHLORIDE 0.9% 1,000 ML IV SCH ×2 (07:25→19:53)
[2018-11-03] MEDS: SYMBICORT 80-4.5 MCG INHALER INHALATION SCH ×2 (07:35→21:49)
[2018-11-03] MEDS: INSULIN ASPART (NovoLOG) 100 UNIT/ML VIAL SQ SCH ×3 (09:12→16:59)
[2018-11-03] MEDS: METOPROLOL TARTRATE 25 MG TAB PO SCH (09:12)
[2018-11-03] MEDS: SPIRONOLACTONE 25 MG TAB PO SCH (09:12)
[2018-11-03] MEDS: PANTOPRAZOLE 40 MG TABLET PO SCH (09:25)
[2018-11-03] MEDS: ASPIRIN 81 MG PO SCH (09:25)
[2018-11-03] MEDS: MAGNESIUM OXIDE 400 MG TAB PO SCH (09:25)
[2018-11-03] MEDS: CYCLOBENZAPRINE 5 MG TAB PO SCH ×3 (09:25→22:46)
--- NOTE | 2018-11-03 09:41 | HP ---
HISTORY AND PHYSICAL CHIEF COMPLAINT: A 62-year-old white female who has abnormal stress test,showing ischemia at the apex. She is admitted due to severe hypotension. Blood pressure is 75-80 systolic, dropping down to 60 systolic standing. She was recently cut back on her and trust 0, but she still has dizziness, lightheadedness and near-syncope due to significant orthostatic hypotension and abnormal stress test. Cardiology is consulted for a cardiac catheterization. Discussed the case with the ER ready she placed on telemetry and Cardiology will be consulted for her heart catheterization and orthostatic hypotension will have to be monitored while in the hospital and cut back on medications. Entresto was discontinued on admission per Cardiology recommendations. She has been having exertional chest pain and dyspnea for many months. Her last cardiac catheterization was years ago. MEDICATIONS: See list. . 14-POINT REVIEW OF SYSTEMS: Negative except for as mentioned in HPI. PHYSICAL EXAM: Endocrine BMI is over 40, cardiovascular S1, S2. Blood pressure 80 systolic, sitting 75, standing systolic pulse is 80 to 75. LUNGS: Clear. GI: Soft. MUSCULOSKELETAL: She has limited range of motion due to significant lumbar stenosis. Positive straight leg raise test bilaterally. She has musculoskeletal large effusions in bilateral knees. ABDOMEN: Soft, nontender. VASCULAR: Normal dorsalis pedis posterior pulse. ASSESSMENT: Exertional angina, orthostatic hypotension, dehydration, acute tubular necrosis secondary to dehydration with static hypotension secondary to dehydration and possible cardiac disease. Abnormal stress with ischemia at the apex would need cardiac catheterization and with cardiac catheterization, if normal she will be cleared for surgery on her lumbar spine next week. If abnormal, her case will be delayed. Await for Cardiology recommendations and orthostatic hypotension blood pressure checks at this time. Please see further orders. MMODL / IJN: [id number] /
[2018-11-03] MEDS: MIDODRINE 5 MG TAB PO SCH ×3 (10:37→16:59)
[2018-11-03 11:22] LABS: Glucose,Whole Blood 155 mg/dL (75-99)
[2018-11-03 12:13] LABS: Albumin 3.3 g/dL (3.5-5.0); Potassium 4.2 mmol/L (3.5-5.1); Total Bilirubin 0.6 mg/dL (0.2-1.3); Total Protein 5.6 g/dL (6.3-8.2)
--- NOTE | 2018-11-03 13:27 | P.CRDCN ---
History of Present Illness History of present illness: This is a pleasant [age]-year-old female past medical history significant for nonischemic dilated cardiomyopathy, mild nonobstructive coronary artery disease, hypertension, dyslipidemia, diabetes mellitus, chronic systolic heart failure, COPD, status post AICD and AV zackary reentry ablation in 2013. She follows in the office with Dr. Ling. We have been asked to consultation secondary to abnormal stress test. She underwent an outpatient Lexiscan stress test for preoperative evaluation per Dr. Chavis secondary to abnormal EKG, per the patient, that revealed a reversible defect in the apex with EF 25%. She is scheduled for back surgery next Thursday at [facility]. She saw Dr. Ling in July for preoperative evaluation. She also was undergoing a CAT scan of a chronic aortic aneurysm prior to surgery and was told at that time she was dehydrated so she was sent to the hospital for fluids. She denies having any symptoms of chest discomfort, shortness of breath, dizziness or palpitations. She states she has had poor oral intake over the previous few weeks. She is seen and examined resting comfortably in bed. Blood pressures have been low since admission, Entresto has been held. No EKG obtained on admission. Laboratory data reviewed, WBC 5.5, hemoglobin 11.7, platelets 120, sodium 140, potassium 4.5, creatinine 1.56 with a GFR of 35, cardiac enzymes negative 1. Current cardiac medications include Entresto 24/26 mg twice a day, Lopressor 25 mg twice a day, aspirin 81 mg daily, atorvastatin 20 mg daily, Lasix 40 mg daily and Aldactone 12.5 mg daily. Most recent cardiac catheterization 2013 revealed a mild 30-35% lesion in the mid-LAD with EF 30-35%. At the time of my exam: CONSTITUTIONAL: Denies fever. Denies chills. EYES: Denies blurred vision. Denies vision changes. Denies eye pain. EARS, NOSE, MOUTH & THROAT: Denies headache. Denies sore throat. Denies ear pain. CARDIOVASCULAR: Denies chest pain. Denies shortness of breath. Denies orthopnea. Denies PND. Denies palpitations. RESPIRATORY: Denies cough. GASTROINTESTINAL: Denies abdominal pain. Denies diarrhea. Denies constipation. Denies nausea. Denies vomiting. MUSCULOSKELETAL: Denies myalgias. INTEGUMENTARY: Denies pruitis. Denies rash. NEUROLOGIC: Denies numbness. Denies tingling. Denies weakness. PSYCHIATRIC: Denies anxiety. Denies depression. ENDOCRINE: Denies fatigue. Denies weight change. Denies polydipsia. Denies polyurina. GENITOURINARY: Denies burning, hematuria or urgency with micturation. HEMATOLOGIC: Denies history of anemia. Denies bleeding. Blood pressure 87/55 heart rate 69 afebrile maintaining oxygen saturation on room air GENERAL: This is a 62-year-old female in no apparent distress at the time of my examination. Obese. HEENT: Head is atraumatic, normocephalic. Pupils are equal, round. Sclerae anicteric. Conjunctivae are clear. Mucous membranes of the mouth are moist. Neck is supple. There is no jugular venous distention. No carotid bruit is heard. LUNGS: Clear to auscultation no wheezes, rales or rhonchi. No chest wall tenderness is noted on palpation or with deep breathing. HEART: Regular rate and rhythm without murmurs, rubs or gallops. S1 and S2 heard. ABDOMEN: Soft, nontender. Bowel sounds are heard. No organomegaly noted. EXTREMITIES: No evidence of peripheral edema and no calf tenderness noted. VASCULAR: Radial and dorsalis pedis pulses palpated, no evidence of clubbing. NEUROLOGIC: Patient is awake, alert and oriented x3. ASSESSMENT Hypotesnsion, entresto on hold Acute on chronic kidney disease Abnormal stress test during pre-operative evaluation. Free of anginal symptoms. Dilated cardiomyopathy Chronic systolic heart failure, currently euvolemic History of SVT s/p AV zackary re-entry ablation Dyslipidemia Diabetes mellitus Mild non-obstructive coronary artery disease Thrombocytopenia, chronic PLAN Obtain baseline EKG. Check for orthostatic changes. Continue to hold entresto. Gentle hydration. Repeat renal function in the morning. No plans for inpatient catheterization planned as an inpatient in the absence of anginal symptoms as well as renal impairment. This can be discussed as a outpatient. We will continue to follow and make recommendations accordingly. Thank you kindly for this consultation. Nurse Practitioner note has been reviewed, I agree with a documented findings and plan of care. Patient was seen and examined. Past Medical History Past Medical History: Atrial Fibrillation, Asthma, Coronary Artery Disease (CAD), Chest Pain / Angina, Heart Failure, Diabetes Mellitus, Hyperlipidemia, Hypertension, Musculoskeletal Disorder, Osteoarthritis (OA), Pneumonia, Renal Disease, Sleep Apnea/CPAP/BIPAP Additional Past Medical History / Comment(s): Arrhythmia, Afib-Converted with ablation 05/2013, Cardiomyopathy,DDD, Diabetic Neuropathy, Edema, Scoliosis,Anemia, KIDNEY STONES History of Any Multi-Drug Resistant Organisms: None Reported Past Surgical History: Ablation, AICD, Back Surgery, Cardiac Ablation, Section, Cholecystectomy, Heart Catheterization, Hysterectomy, Joint Replacement, Orthopedic Surgery, Pacemaker Additional Past Surgical History / Comment(s): Varicose Vein Stripping,Rt Knee scope, D & C, Colonoscopy, Lithotripsy, Removal of kidney stones,LT TOTAL KNEE REPLACEMENT Past Anesthesia/Blood Transfusion Reactions: No Reported Reaction Additional Past Anesthesia/Blood Transfusion Reaction / Comment(s): HAS HAD NO PROBLEMS WITH PRIOR BLOOD TRANSFUSIONS Type of Cardiac Device: Permanent Pacemaker, AICD Device Placement Date:: 03/14/2011-Metronic LT CHEST Past Psychological History: Anxiety, Depression Additional Psychological History / Comment(s): . Lives with her son in [place]. She is on disability. She has no experience. She has no travel history. She is a lifelong nonsmoker. No history of recreational drug use. No history of alcohol use. No animals in the home at this time. Smoking Status: Never smoker Past Alcohol Use History: None Reported Past Drug Use History: None Reported - Past Family History Father Family Medical History: Cancer Brother(s) Family Medical History: Cancer Sister(s) Family Medical History: Cancer Mother Family Medical History: Cancer Medications and Allergies Home Medications Medication Instructions Recorded Confirmed Type Magnesium Oxide [Mag-Ox] 250 mg PO DAILY 05/06/14 11/02/18 History INSULIN ASPART (NovoLOG) [NovoLOG 13 unit SQ AC-BRKFST 05/29/14 11/02/18 History (formulary)] Insulin Detemir (Levemir) [Levemir] 35 unit SQ HS 11/17/14 11/02/18 History INSULIN ASPART (NovoLOG) [NovoLOG 15 unit SQ AC-LUNCH 07/03/15 11/02/18 History (formulary)] INSULIN ASPART (NovoLOG) [NovoLOG 15 unit SQ AC-SUPPER 07/03/15 11/02/18 History (formulary)] Albuterol Nebulized [Ventolin 2.5 mg INHALATION RT-Q4H PRN #0 07/09/15 11/02/18 Rx Nebulized] nebu Atorvastatin [Lipitor] 20 mg PO HS 08/02/16 11/02/18 History Cyanocobalamin [Vitamin B-12] 250 mcg PO DAILY 08/02/16 11/02/18 History Pregabalin [Lyrica] 150 mg PO TID 08/02/16 11/02/18 History oxyCODONE-APAP 10-325MG [Percocet 1 tab PO Q6HR PRN 08/02/16 11/02/18 History 10-325 mg] Aspirin EC [Ecotrin Low Dose] 81 mg PO DAILY 11/02/18 11/02/18 History Cyclobenzaprine [Flexeril] 5 mg PO TID 11/02/18 11/02/18 History Fluticasone/Vilanterol [Breo 1 puff INHALATION RT-DAILY 11/02/18 11/02/18 History Ellipta 100-25 Mcg Inhaler] Furosemide [Lasix] 40 mg PO HS 11/02/18 11/02/18 History Metoprolol Tartrate [Lopressor] 25 mg PO BID 11/02/18 11/02/18 History Midodrine [ProAmatine] 5 mg PO DIRECTED 11/02/18 11/02/18 History Montelukast [Singulair] 10 mg PO HS 11/02/18 11/02/18 History Pantoprazole [Protonix] 40 mg PO DAILY 11/02/18 11/02/18 History Sacubitril/Valsartan [Entresto 24 1 tab PO DIRECTED 11/02/18 11/02/18 History mg-26 mg Tablet] Semaglutide [Ozempic] 0.25 mg SQ TH 11/02/18 11/02/18 History Spironolactone [Aldactone] 12.5 mg PO DAILY 11/02/18 11/02/18 History Allergies Allergy/AdvReac Type Severity Reaction Status Date / Time No Known Allergies Allergy Verified 11/02/18 14:31 Physical Exam Vitals: Vital Signs Temp Pulse Resp BP Pulse Ox 11/03/18 07:00 98.7 F 69 15 87/55 91 L 11/03/18 02:45 98.1 F 72 16 92/54 94 L 11/02/18 19:43 97.8 F 56 L 16 106/65 96 11/02/18 16:25 69 89/59 11/02/18 16:21 69 98/62 11/02/18 16:20 61 93/54 11/02/18 14:06 97.8 F 70 15 92/53 100 Intake and Output 11/02/18 11/03/18 11/03/18 22:59 06:59 14:59 Intake Total 180 Balance 180 Intake: Oral 180 Other: Voiding Method Toilet # Voids 1 1 Results 11/02/18 15:19 11/03/18 10:48 Cardiac Enzymes 11/02/18 11/02/18 Range/Units 14:33 14:33 AST 45 H (14-36) U/L Troponin I 0.012 (0.000-0.034) ng/mL CBC 11/02/18 Range/Units 15:19 WBC 5.5 (3.8-10.6) k/uL RBC 3.86 (3.80-5.40) m/uL Hgb 11.7 (11.4-16.0) gm/dL Hct 36.2 (34.0-46.0) % Plt Count 120 L (150-450) k/uL Comprehensive Metabolic Panel 11/02/18 Range/Units 14:33 Sodium 140 (137-145) mmol/L Potassium 4.5 (3.5-5.1) mmol/L Chloride 107 (98-107) mmol/L Carbon Dioxide 25 (22-30) mmol/L BUN 44 H (7-17) mg/dL Creatinine 1.56 H (0.52-1.04) mg/dL Glucose 197 H (74-99) mg/dL Calcium 9.5 (8.4-10.2) mg/dL AST 45 H (14-36) U/L ALT 29 (9-52) U/L Alkaline Phosphatase 86 (38-126) U/L Total Protein 6.9 (6.3-8.2) g/dL Albumin 4.2 (3.5-5.0) g/dL Current Medications Generic Name Dose Route Start Last Admin Trade Name Freq PRN Reason Stop Dose Admin Albuterol Sulfate 2.5 mg 11/02/18 16:07 Ventolin Nebulized INHALATION RT-Q4H PRN Shortness Of Breath Aspirin 81 mg 11/03/18 09:00 Aspirin PO DAILY [facility] Atorvastatin Calcium 20 mg 11/02/18 21:00 11/02/18 21:49 Lipitor PO 20 mg HS [facility] Administration Budesonide/Formoterol Fumarate 2 puff 11/03/18 08:00 11/03/18 07:35 Symbicort 80-4.5 Mcg Inhaler INHALATION 2 puff RT-BID BIN Administration Cyclobenzaprine HCl 5 mg 11/02/18 22:00 11/02/18 21:49 Flexeril PO 5 mg TID BIN Administration Furosemide 40 mg 11/02/18 21:00 11/02/18 21:52 Lasix PO Not Given HS [facility] Sodium Chloride 1,000 mls @ 75 mls/hr 11/02/18 16:15 11/03/18 07:25 Saline 0.9% IV Not Given .[id number] [facility] Insulin Aspart 13 unit 11/03/18 07:30 11/03/18 09:12 Novolog SQ Not Given AC-BRKFST [facility] Insulin Aspart 15 unit 11/03/18 12:30 Novolog SQ AC-LUNCH [facility] Insulin Aspart 15 unit 11/02/18 17:30 11/02/18 17:03 Novolog SQ 15 unit AC-SUPPER [facility] Administration Insulin Detemir 35 unit 11/02/18 21:00 11/02/18 21:52 Levemir SQ Not Given HS [facility] Magnesium Oxide 400 mg 11/03/18 09:00 Mag-Ox PO DAILY [facility] Metoprolol Tartrate 25 mg 11/02/18 21:00 11/03/18 09:12 Lopressor PO Not Given BID [facility] Midodrine 5 mg 11/03/18 12:30 Proamatine PO AC-TID [facility] Montelukast Sodium 10 mg 11/02/18 21:00 11/02/18 21:49 Singulair PO 10 mg HS [facility] Administration Non-Formulary Medication 0.25 mg 11/04/18 12:00 Semaglutide [Ozempic] SQ TH [facility] Oxycodone/Acetaminophen 1 each 11/02/18 16:07 11/03/18 03:30 Percocet 10-325 PO 1 each Q6HR PRN Administration Pain Pantoprazole Sodium 40 mg 11/03/18 07:30 Protonix PO AC-BRKFST BIN Spironolactone 12.5 mg 11/03/18 09:00 11/03/18 09:12 Aldactone PO Not Given DAILY [facility] Intake and Output 11/02/18 11/03/18 11/03/18 22:59 06:59 14:59 Intake Total 180 Balance 180 Intake: Oral 180 Other: Voiding Method Toilet # Voids 1 1 11/02/18 15:19 11/02/18 14:33
[2018-11-03 16:33] LABS: Glucose,Whole Blood 114 mg/dL (75-99)
[2018-11-03 20:52] LABS: Glucose,Whole Blood 93 mg/dL (75-99)
[2018-11-03] MEDS ORDERED: FUROSEMIDE 20 MG TAB PO SCH (21:00)
[2018-11-03] MEDS: METOPROLOL TARTRATE 12.5 MG TAB PO SCH (22:44)
[2018-11-03] MEDS: INSULIN DETEMIR (LEVEMIR) 100 UNIT/ML SYR SQ SCH (22:44)
[2018-11-03] MEDS: ATORVASTATIN 20 MG TAB PO SCH (22:46)
[2018-11-03] MEDS: MONTELUKAST 10 MG TAB PO SCH (22:46)
[2018-11-04] MEDS: oxyCODONE-APAP 10-325MG 1 EACH TAB PO PRN ×2 (00:32→11:31)
[2018-11-04 06:50] LABS: Glucose,Whole Blood 135 mg/dL (75-99)
[2018-11-04] MEDS: INSULIN ASPART (NovoLOG) 100 UNIT/ML VIAL SQ SCH ×3 (07:21→17:48)
[2018-11-04] MEDS: SYMBICORT 80-4.5 MCG INHALER INHALATION SCH ×2 (07:24→19:42)
[2018-11-04 08:16] LABS: Albumin 3.3 g/dL (3.5-5.0); Calcium 9.1 mg/dL (8.4-10.2); Potassium 4.6 mmol/L (3.5-5.1); Total Bilirubin 0.6 mg/dL (0.2-1.3); Total Protein 5.7 g/dL (6.3-8.2)
[2018-11-04] MEDS ORDERED: NITROGLYCERIN SL TABS 0.4 MG TAB SUBLINGUAL PRN (08:59)
[2018-11-04] MEDS: MIDODRINE 5 MG TAB PO SCH ×3 (09:32→17:49)
[2018-11-04] MEDS: ASPIRIN 81 MG PO SCH (09:33)
[2018-11-04] MEDS: SODIUM CHLORIDE 0.9% 1,000 ML IV SCH ×2 (09:33→21:35)
[2018-11-04] MEDS: CYCLOBENZAPRINE 5 MG TAB PO SCH ×3 (09:34→21:35)
[2018-11-04] MEDS: METOPROLOL TARTRATE 12.5 MG TAB PO SCH ×2 (09:34→21:35)
[2018-11-04] MEDS: MAGNESIUM OXIDE 400 MG TAB PO SCH (09:34)
[2018-11-04] MEDS: SPIRONOLACTONE 25 MG TAB PO SCH (09:35)
[2018-11-04] MEDS: PANTOPRAZOLE 40 MG TABLET PO SCH (09:35)
--- NOTE | 2018-11-04 10:55 | P.PN ---
Subjective This is a pleasant [age]-year-old female past medical history significant for nonischemic dilated cardiomyopathy, mild nonobstructive coronary artery disease, hypertension, dyslipidemia, diabetes mellitus, chronic systolic heart failure, COPD, status post AICD and AV zackary reentry ablation in 2013. She follows in the office with Dr. Ling. Discussion with Dr. Ling he states he would like to perform heart catheterization while she is in the hospital. This has been discussed with Dr. Snell as well. Patient is agreeable to move forw carolynn tomorrow. Blood pressure supine 98/60, sitting 118/75 and standing 95/66. Currently maintained on lopressor 12.5 mg daily. Lasix is being held. She is seen and examined laying flat in bed in no acute distress. She denies chest pain, shortness of breath, dizziness or palpitations. Laboratory data reviewed, sodium 147, potassium 4.6, creatinine 1.14 GFR 52. Hydration is ongoing. GENERAL: This is a 62-year-old female in no apparent distress at the time of my examination. Obese. HEENT: Head is atraumatic, normocephalic. Pupils are equal, round. Sclerae anicteric. Conjunctivae are clear. Mucous membranes of the mouth are moist. Neck is supple. There is no jugular venous distention. No carotid bruit is heard. LUNGS: Clear to auscultation no wheezes, rales or rhonchi. No chest wall tenderness is noted on palpation or with deep breathing. HEART: Regular rate and rhythm without murmurs, rubs or gallops. S1 and S2 heard. EXTREMITIES: No evidence of peripheral edema and no calf tenderness noted. ASSESSMENT Hypotesnsion, entresto on hold Acute on chronic kidney disease Abnormal stress test during pre-operative evaluation. Free of anginal symptoms. Dilated cardiomyopathy Chronic systolic heart failure, currently euvolemic History of SVT s/p AV zackary re-entry ablation Dyslipidemia Diabetes mellitus Mild non-obstructive coronary artery disease Thrombocytopenia, chronic PLAN Proceed with cardiac catheterization tomorrow with Dr. Ling. Repeat renal function in the morning. Further recommendations to follow. Nurse Practitioner note has been reviewed, I agree with a documented findings and plan of care. Patient was seen and examined. Objective - Vital Signs Vital signs: Vital Signs Temp 98.1 F 11/04/18 07:00 Pulse 80 11/04/18 10:28 Resp 16 11/04/18 07:00 BP 98/60 11/04/18 10:28 Pulse Ox 97 11/04/18 07:00 Intake & Output 11/03/18 11/04/18 11/04/18 18:59 06:59 18:59 Intake Total 180 250 Balance 180 250 Intake: Oral 180 250 Other: Voiding Method Toilet # Voids 3 1 - Labs CBC & Chem 7: 11/02/18 15:19 11/04/18 06:45 Labs: Abnormal Lab Results - Last 24 Hours (Table) 11/03/18 11/03/18 11/03/18 Range/Units 10:48 11:21 16:32 Sodium 146 H (137-145) mmol/L Chloride 113 H (98-107) mmol/L Carbon Dioxide (22-30) mmol/L BUN 37 H (7-17) mg/dL Creatinine 1.32 H (0.52-1.04) mg/dL Glucose 161 H (74-99) mg/dL POC Glucose (mg/dL) 155 H 114 H (75-99) mg/dL Total Protein 5.6 L (6.3-8.2) g/dL Albumin 3.3 L (3.5-5.0) g/dL 11/04/18 11/04/18 Range/Units 06:45 06:46 Sodium 147 H (137-145) mmol/L Chloride 116 H (98-107) mmol/L Carbon Dioxide 21 L (22-30) mmol/L BUN 27 H (7-17) mg/dL Creatinine 1.14 H (0.52-1.04) mg/dL Glucose 121 H (74-99) mg/dL POC Glucose (mg/dL) 135 H (75-99) mg/dL Total Protein 5.7 L (6.3-8.2) g/dL Albumin 3.3 L (3.5-5.0) g/dL
[2018-11-04 11:36] LABS: Glucose,Whole Blood 132 mg/dL (75-99)
[2018-11-04] MEDS ORDERED: SEMAGLUTIDE 0.25 MG SQ SCH (12:00)
--- NOTE | 2018-11-04 14:01 | P.PN ---
Subjective Progress Note Date: 11/04/18 This is a 62-year-old female admitted with exertional angina, with a known abnormal stress test, orthostatic hypotension, dehydration, acute on chronic renal failure and multiple other medical issues. Evaluated by cardiology and patient is scheduled for cardiac catheterization tomorrow, as patient is sche duled for lumbar spine surgery next week and will also need cardiac clearance. Positive for orthostatic hypotension. Maintained on gentle IV fluid hydration. Renal function improving, creatinine down to 1.14. Yesterday hypotensive, antihypertensives adjusted, BP improved. Denies any chest pain, palpitations or shortness of breath. Denies any lightheadedness, dizziness or focal deficits. Objective - Vital Signs Vital signs: Vital Signs Temp 98.1 F 11/04/18 07:00 Pulse 80 11/04/18 10:28 Resp 16 11/04/18 07:00 BP 98/60 11/04/18 10:28 Pulse Ox 97 11/04/18 07:00 Intake & Output 11/03/18 11/04/18 11/04/18 18:59 06:59 18:59 Intake Total 180 250 Balance 180 250 Intake: Oral 180 250 Other: Voiding Method Toilet # Voids 3 1 - Exam PHYSICAL EXAM: VITAL SIGNS: As above GENERAL: Lying in bed, no acute distress HEENT: Conjunctivae normal. eyes normal. Oral mucosa somewhat NECK: No JVD. No thyroid enlargement. No LNs CARDIOVASCULAR: S1, S2 regular.. No murmur, rubs or gallops. RESPIRATION: Breath sounds diminished in the bases. No rhonchi, crackles or wheezing. ABDOMEN: Soft, nontender . No guarding. no masses palpable. No ascites, No hepatosplenomegaly.Bowel sounds heard. LEGS: No edema. no swelling PSYCHIATRY: Alert and oriented X3, mood and affect normal. NERVOUS SYSTEM: Cranial N 2-12 grossly normal. Diffuse weakness-limited range of motion due to lumbar stenosis ,No focal deficits. Strength and sensation g rossly intact.. Skin: no lesions, no rash. No calf tenderness Lymphatic system. No LN neck axilla or groin. - Labs CBC & Chem 7: 11/02/18 15:19 11/04/18 06:45 Labs: Abnormal Lab Results - Last 24 Hours (Table) 11/03/18 11/03/18 11/04/18 Range/Units 10:48 16:32 06:45 Sodium 146 H 147 H (137-145) mmol/L Chloride 113 H 116 H (98-107) mmol/L Carbon Dioxide 21 L (22-30) mmol/L BUN 37 H 27 H (7-17) mg/dL Creatinine 1.32 H 1.14 H (0.52-1.04) mg/dL Glucose 161 H 121 H (74-99) mg/dL POC Glucose (mg/dL) 114 H (75-99) mg/dL Total Protein 5.6 L 5.7 L (6.3-8.2) g/dL Albumin 3.3 L 3.3 L (3.5-5.0) g/dL 11/04/18 11/04/18 Range/Units 06:46 11:35 Sodium (137-145) mmol/L Chloride (98-107) mmol/L Carbon Dioxide (22-30) mmol/L BUN (7-17) mg/dL Creatinine (0.52-1.04) mg/dL Glucose (74-99) mg/dL POC Glucose (mg/dL) 135 H 132 H (75-99) mg/dL Total Protein (6.3-8.2) g/dL Albumin (3.5-5.0) g/dL Assessment and Plan Assessment: Acute exertional angina, in a patient with history of abnormal stress test with a history of CAD,dilated cardiomyopathy -Dehydration -Orthostatic hypotension, secondary to the above. -Hypotension, multiple meds placed on hold including Entresto. -Chronic systolic heart failure, stable -History of SVT status post ablation -Acute on chronic renal failure, stage III. Acute secondary to ATN. -Diabetes mellitus -Chronic thrombocytopenia -Dyslipidemia Plan: Continue on current medication regime ,monitoring and symptomatic treatm ent. Maintain gentle IV fluid hydration. Close monitoring of renal function. Scheduled for cardiac catheterization tomorrow. Follow closely with cardiology. Further recommendations to follow. The impression and plan of care has been dictated as directed. : I performed a history and examination of this patient, discussed the same with the dictator. I agree with the dictator's note ,documented as a scribe. Any additional findings or plans will be noted.
[2018-11-04 16:58] LABS: Glucose,Whole Blood 135 mg/dL (75-99)
[2018-11-04 17:33] LABS: Hemoglobin A1C 7.8 % (4.0-6.0)
[2018-11-04] MEDS ORDERED: DIAZEPAM 5 MG TAB PO STA (17:57)
[2018-11-04] MEDS: DOCUSATE 100 MG CAP PO SCH (18:11)
[2018-11-04 21:33] LABS: Glucose,Whole Blood 130 mg/dL (75-99)
[2018-11-04] MEDS: ATORVASTATIN 20 MG TAB PO SCH (21:35)
[2018-11-04] MEDS: MONTELUKAST 10 MG TAB PO SCH (21:35)
[2018-11-04] MEDS: INSULIN DETEMIR (LEVEMIR) 100 UNIT/ML SYR SQ SCH (21:35)
[2018-11-05] MEDS ORDERED: ASPIRIN 325 MG TAB PO ONE (06:00)
[2018-11-05] MEDS ORDERED: IV FLUID CONTINUATION 1,000 ML IV ONE (07:23)
[2018-11-05] MEDS ORDERED: SODIUM CHLORIDE 0.9% 1,000 ML IV ONE ×2 (07:23→13:30)
[2018-11-05] MEDS: PANTOPRAZOLE 40 MG TABLET PO SCH (07:30)
[2018-11-05] MEDS: MIDODRINE 5 MG TAB PO SCH ×4 (07:30→16:12)
[2018-11-05] MEDS: INSULIN ASPART (NovoLOG) 100 UNIT/ML VIAL SQ SCH ×3 (07:33→17:11)
[2018-11-05] MEDS ORDERED: MIDAZOLAM (PF) 2 MG/2 ML VIAL IV ONE (07:46)
[2018-11-05] MEDS ORDERED: LIDOCAINE 1% INJ 10MG/ML (20 ML MDV) SQ ONE (07:51)
[2018-11-05] MEDS ORDERED: IOPAMIDOL-370 100ML BTL INJ ONE (08:04)
[2018-11-05] MEDS ORDERED: RX INFO: IV CONTRAST WAS GIVEN 1 EACH MISC MISCELLANE PRN (08:09)
[2018-11-05 08:23] LABS: Glucose,Whole Blood 115 mg/dL (75-99)
[2018-11-05] MEDS: SODIUM CHLORIDE 0.9% 1,000 ML IV SCH ×2 (08:57→16:09)
[2018-11-05] MEDS: DOCUSATE 100 MG CAP PO SCH ×2 (09:00→21:04)
[2018-11-05] MEDS: ASPIRIN 81 MG PO SCH (09:00)
[2018-11-05] MEDS: CYCLOBENZAPRINE 5 MG TAB PO SCH ×3 (09:00→21:04)
[2018-11-05] MEDS: SPIRONOLACTONE 25 MG TAB PO SCH (09:00)
[2018-11-05] MEDS: METOPROLOL TARTRATE 12.5 MG TAB PO SCH ×2 (09:00→21:03)
[2018-11-05] MEDS: MAGNESIUM OXIDE 400 MG TAB PO SCH (09:00)
[2018-11-05] MEDS: HEPARIN SODIUM,PORCINE 5,000 UNIT/ML 1 ML VIAL SQ SCH ×2 (09:00→22:54)
[2018-11-05] MEDS ORDERED: HYDROcodone/APAP 10-325MG 1 EACH TAB ONE ×2 (09:11→15:04)
[2018-11-05] MEDS: oxyCODONE-APAP 10-325MG 1 EACH TAB PO PRN ×3 (09:12→21:04)
[2018-11-05] MEDS: SYMBICORT 80-4.5 MCG INHALER INHALATION SCH ×2 (09:42→20:43)
--- NOTE | 2018-11-05 11:22 | CC ---
CARDIAC CATHETERIZATION REPORT DATE OF SERVICE: 11/05/2018 PROCEDURE: Left heart catheterization and coronary angiography. PERFORMED BY: Dr. Donnie Ling. CLINICAL INFORMATION: Mrs. Yani Andino is a 62-year-old obese lady with a history of type 2 diabetes, hypertension, hypercholesterolemia and also some autonomic dysfunction. She has nonischemic cardiomyopathy with ejection fraction less than 35% and has an ICD in place. She kg had a positive stress test recently when her primary care physician Dr. nSell ordered 1 prior to an elective back surgery. However, she also was quite dehydrated and had a pre renal azotemia. She was brought into the hospital hydrated cautiously and after optimizing her renal status, she was advised coronary angiography in view of the positive stress test prior to elective surgery. The risks. Risks, benefits, options and rationale were explained to the patient very carefully. PROCEDURE NOTE: Under local anesthesia and strict aseptic precautions, a 6-Prydeinig introducer was placed in the right femoral artery. Using standard Lyndsay catheters I performed coronary angiography and then used a pigtail catheter to check LV pressures. LV gram was not performed. The catheter and sheath were taken out and Angio-Seal device used to secure hemostasis. She was sent to the room in a stable condition. Findings were discussed with the patient, family and also spoke to Dr. Snell. ANESTHESIA: Moderate conscious sedation time was 18 minutes. She was administered Versed. Oxygen saturation, hemodynamics and EKG were monitored closely. Coronary. CARDIAC CATHETERIZATION FINDINGS: Underlying this the left ventricle end-diastolic pressure was 18 mmHg without any gradient across aortic valve. CORONARY ANGIOGRAPHY FINDINGS: RIGHT CORONARY ARTERY: Right coronary artery dominant vessel very tortuous, gives off acute marginal branches and distally continues as a PDA branch. No significant disease in the dominant RCA only minor irregularities noted. LEFT MAIN CORONARY ARTERY: Short patent vessel free of significant disease. Bifurcates into LAD and circumflex. LEFT ANTERIOR DESCENDING CORONARY ARTERY: Good caliber vessel extends along the anterior wall, gives off septal and diagonal branches runs all the way to the apex. The distal 1/3 of the LAD has diffuse disease throughout, but I do not believe there is any focal stenosis. No significant disease in the LAD. LEFT POSTERIOR CIRCUMFLEX CORONARY ARTERY: Technically nondominant vessel gives off a single obtuse marginal that runs laterally and then AV groove branch. Both of these are free of have minor irregularities. No significant disease. LEFT VENTRICULOGRAM: This was not performed. FINAL IMPRESSION: This patient has a right dominant system. Elevated filling pressures. No gradient across aortic valve. No significant CAD. Distal LAD has mild diffuse a tapering noted but no obstructive CAD of significance. RECOMMENDATIONS: This patient is going for her back surgery. There is no contraindication but the risk is high given her multiple comorbid conditions that include obesity, hypertension, hyperlipidemia, type 2 diabetes, not under the best control and also has a nonischemic cardiomyopathy with ejection fraction of less than 30%. The patient's risk is high for surgery, but no contraindication. Advised cautious fluid administration and optimal BP control perioperatively. I discussed my thoughts in detail with the patient and family. MMODL / IJN: [id number] /
[2018-11-05 12:09] LABS: Calcium 8.9 mg/dL (8.4-10.2); Potassium 4.5 mmol/L (3.5-5.1)
--- NOTE | 2018-11-05 12:46 | P.PN ---
Subjective Progress Note Date: 11/05/18 This is a 62-year-old female admitted with exertional angina, with a known abnormal stress test, orthostatic hypotension, dehydration, acute on chronic renal failure and multiple other medical issues. Evaluated by cardiology and patient is scheduled for cardiac catheterization tomorrow, as patient is sche duled for lumbar spine surgery next week and will also need cardiac clearance. Positive for orthostatic hypotension. Maintained on gentle IV fluid hydration. Renal function improving, creatinine down to 1.14. Yesterday hypotensive, antihypertensives adjusted, BP improved. Denies any chest pain, palpitations or shortness of breath. Denies any lightheadedness, dizziness or focal deficits. 11/05/2018 underwent cardiac catheterization, verbally reported as clear. Currently in extended stay. Tolerated procedure well.VSS. Denies chest pain, palpitations or shortness of breath. Objective - Vital Signs Vital signs: Vital Signs Temp 98.2 F 11/05/18 06:30 Pulse 97 11/05/18 09:43 Resp 16 11/05/18 09:43 BP 120/59 11/05/18 09:43 Pulse Ox 97 11/05/18 09:43 Intake & Output 11/04/18 11/05/18 11/05/18 18:59 06:59 18:59 Intake Total 1000 50 Balance 1000 50 Intake: IV 50 Sodium Chloride 0.9% 1, 0 000 ml @ 75 mls/hr IV . [id number] [facility] Rx#:[id number] Intake, IV Titration 650 Amount Sodium Chloride 0.9% 1, 650 000 ml @ 75 mls/hr IV . [id number] [facility] Rx#:[id number] Oral 350 Other: Voiding Method Toilet Toilet # Voids 2 1 - Exam PHYSICAL EXAM: VITAL SIGNS: As above GENERAL: Sitting in stretcher, no acute distress HEENT: Conjunctivae normal. eyes normal. Oral mucosa moist. NECK: No JVD. No thyroid enlargement. No LNs CARDIOVASCULAR: S1, S2 regular. No murmur, rubs or gallops. RESPIRATION: Breath sounds diminished in the bases. No rhonchi, crackles or wheezing. ABDOMEN: Soft, nontender . No guarding. no masses palpable. Bowel sounds heard. LEGS: No edema. no swelling . Bilateral DPs present. PSYCHIATRY: Alert and oriented X3, mood and affect normal. NERVOUS SYSTEM: Cranial N 2-12 grossly normal.No focal deficits. Strength and sensation grossly intact. Skin: no lesions, no rash. No calf tenderness. - Labs CBC & Chem 7: 11/02/18 15:19 11/05/18 11:02 Labs: Abnormal Lab Results - Last 24 Hours (Table) 11/02/18 11/04/18 11/04/18 Range/Units 15:19 11:35 16:56 POC Glucose (mg/dL) 132 H 135 H (75-99) mg/dL Hemoglobin A1c 7.8 H (4.0-6.0) % 11/04/18 11/05/18 Range/Units 21:32 08:21 POC Glucose (mg/dL) 130 H 115 H (75-99) mg/dL Hemoglobin A1c (4.0-6.0) % Assessment and Plan Assessment: Acute exertional angina, in a patient with history of abnormal stress test with a history of CAD,dilated cardiomyopathy. Status post clear cath. -Dehydration -Orthostatic hypotension, secondary to the above. -Hypotension, multiple meds placed on hold including Entresto. -Chronic systolic heart failure, stable -History of SVT status post ablation -Acute on chronic renal failure, stage III. Acute secondary to ATN. -Diabetes mellitus -Chronic thrombocytopenia -Dyslipidemia Plan: Continue on current medication regime ,monitoring and symptomatic treatment. Maintain gentle IV fluid hydration. Close monitoring of renal function. Discharge planning in progress for tomorrow. The impression and plan of care has been dictated as directed. : I performed a history and examination of this patient, discussed the same with the dictator. I agree with the dictator's note ,documented as a scribe. Any additional findings or plans will be noted.
[2018-11-05] MEDS: FUROSEMIDE 20 MG TAB PO SCH (13:11)
[2018-11-05 13:18] LABS: Glucose,Whole Blood 103 mg/dL (75-99)
[2018-11-05 16:41] LABS: Glucose,Whole Blood 113 mg/dL (75-99)
[2018-11-05 20:53] LABS: Glucose,Whole Blood 112 mg/dL (75-99)
[2018-11-05] MEDS ORDERED: LOSARTAN 25 MG TAB PO SCH (21:00)
[2018-11-05] MEDS: MONTELUKAST 10 MG TAB PO SCH (21:03)
[2018-11-05] MEDS: ATORVASTATIN 20 MG TAB PO SCH (21:04)
[2018-11-05] MEDS: INSULIN DETEMIR (LEVEMIR) 100 UNIT/ML SYR SQ SCH (22:54)
[2018-11-06] MEDS: SODIUM CHLORIDE 0.9% 1,000 ML IV SCH ×2 (01:35)
[2018-11-06 06:31] LABS: Glucose,Whole Blood 104 mg/dL (75-99)
[2018-11-06] MEDS: PANTOPRAZOLE 40 MG TABLET PO SCH (06:36)
[2018-11-06] MEDS: INSULIN ASPART (NovoLOG) 100 UNIT/ML VIAL SQ SCH (06:36)
[2018-11-06] MEDS: MIDODRINE 5 MG TAB PO SCH (06:36)
[2018-11-06 06:45] LABS: Anisocytosis Slight; Basophils % (A) 0 %; Eosinophils # (A) 0.2 k/uL (0-0.7); Eosinophils % (A) 5 %; HCT 31.9 % (34.0-46.0); HGB 10.5 gm/dL (11.4-16.0); Lymphocytes # (A) 0.9 k/uL (1.0-4.8); Lymphocytes % (A) 25 %; Mean Platelet Volume 8.5; Monocytes # (A) 0.3 k/uL (0-1.0); Monocytes % (A) 8 %; Neutrophils # (A) 2.2 k/uL (1.3-7.7); Neutrophils % (A) 59 %; RBC 3.39 m/uL (3.80-5.40); RDW 16.6 % (11.5-15.5); WBC 3.7 k/uL (3.8-10.6)
[2018-11-06 06:55] LABS: Calcium 8.9 mg/dL (8.4-10.2); Potassium 4.1 mmol/L (3.5-5.1)
[2018-11-06 07:12] LABS: Platelet Count 91 k/uL (150-450)
[2018-11-06] MEDS: METOPROLOL TARTRATE 12.5 MG TAB PO SCH (09:00)
[2018-11-06] MEDS: HEPARIN SODIUM,PORCINE 5,000 UNIT/ML 1 ML VIAL SQ SCH (09:00)
[2018-11-06] MEDS: FUROSEMIDE 20 MG TAB PO SCH (09:00)
[2018-11-06] MEDS: CYCLOBENZAPRINE 5 MG TAB PO SCH (09:00)
[2018-11-06] MEDS: ASPIRIN 81 MG PO SCH (09:00)
[2018-11-06] MEDS: MAGNESIUM OXIDE 400 MG TAB PO SCH (09:00)
[2018-11-06] MEDS: SPIRONOLACTONE 25 MG TAB PO SCH (09:00)
[2018-11-06] MEDS: SYMBICORT 80-4.5 MCG INHALER INHALATION SCH (09:01)
[2018-11-06] MEDS: DOCUSATE 100 MG CAP PO SCH (09:01)
[2018-11-06] MEDS: oxyCODONE-APAP 10-325MG 1 EACH TAB PO PRN (09:04)
[2018-11-06 10:50] VITALS: BP 129/75; PULSE 61; RESP 17; TEMP 98
== END 2018-11-06 11:06 | disposition home or self-care (01) | DRG 286 ==
LOC: 4SSUR 13:49 → 3SCARD 11-05 08:05
PROVIDERS: ADMIT Family Medicine; ATTEND Family Medicine
PROC: 4A023N7 Measurement of Cardiac Sampling and Pressure, Left Heart, Percutaneous Approach (ICD-10-PCS; principal; 2018-11-05 07:30)
PROC: B2111ZZ Fluoroscopy of Multiple Coronary Arteries using Low Osmolar Contrast (ICD-10-PCS; principal; 2018-11-05 07:30)
DX: I25.119 Atherosclerotic heart disease of native coronary artery with unspecified angina pectoris (principal); N17.0 Acute kidney failure with tubular necrosis; I50.22 Chronic systolic (congestive) heart failure; I47.1 Supraventricular tachycardia; I13.0 Hypertensive heart and chronic kidney disease with heart failure and stage 1 through stage 4 chronic kidney disease, or unspecified chronic kidney disease; I42.0 Dilated cardiomyopathy; I95.1 Orthostatic hypotension; E86.0 Dehydration; R06.00 Dyspnea, unspecified; I11.0 Hypertensive heart disease with heart failure; D69.6 Thrombocytopenia, unspecified; N18.3 Chronic kidney disease, stage 3 (moderate); M41.9 Scoliosis, unspecified; Z96.652 Presence of left artificial knee joint; G47.30 Sleep apnea, unspecified; E78.5 Hyperlipidemia, unspecified; E66.9 Obesity, unspecified; E11.40 Type 2 diabetes mellitus with diabetic neuropathy, unspecified; E11.22 Type 2 diabetes mellitus with diabetic chronic kidney disease; J44.9 Chronic obstructive pulmonary disease, unspecified; I71.9 Aortic aneurysm of unspecified site, without rupture; I48.91 Unspecified atrial fibrillation; Z79.4 Long term (current) use of insulin; Z79.82 Long term (current) use of aspirin; Z79.899 Other long term (current) drug therapy; Z87.442 Personal history of urinary calculi; Z90.710 Acquired absence of both cervix and uterus; Z95.810 Presence of automatic (implantable) cardiac defibrillator; Z80.9 Family history of malignant neoplasm, unspecified
CPT/HCPCS: 80048; 80053; 83036; 83605; 84484; 85025; 93458; 94640

== ENCOUNTER 2019-01-14 12:34 | Inpatient (IN) | payer MEDICARE, OTHER ==
[2019-01-14] MEDS ORDERED: NITROGLYCERIN OINT 1 INCH/GM PACKET TOPICAL STA (12:55)
[2019-01-14] MEDS ORDERED: NITROGLYCERIN SL TABS 0.4 MG TAB SUBLINGUAL PRN ×3 (12:55→17:47)
[2019-01-14] MEDS ORDERED: ASPIRIN 81 MG PO STA (12:55)
[2019-01-14] MEDS ORDERED: ONDANSETRON 4 MG/2 ML VIAL IVP STA ×2 (12:55→14:46)
--- NOTE | 2019-01-14 13:05 | ED ---
General Adult HPI - General Chief complaint: Chest Pain Stated complaint: chest pain Time Seen by Provider: 01/14/19 12:40 Source: patient, RN notes reviewed, old records reviewed Mode of arrival: ambulatory Limitations: no limitations - History of Present Illness Initial comments: This is a 63-year-old female who presents emergency department with past medical history significant for pacemaker placement atrial fibrillation, ablation, diabetes, high blood pressure, high cholesterol. Patient states she started having chest pain yesterday and it is been intermittent. Patient states she's had it many times since then it lasts approximately one hour when it occurs. Patient denies any radiation of the pain. Patient states she is having difficulty breathing. Patient denies any abdominal pain patient denies nausea vomiting diarrhea. Patient denies any headache patient denies numbness weakness. Patient denies any lightheadedness or dizziness. Patient states she's never had a heart attack. Patient states she does have a strong family history of heart disease. Patient denies any swelling to her legs or calf tenderness. - Related Data Home Medications Medication Instructions Recorded Confirmed Magnesium Oxide [Mag-Ox] 250 mg PO DAILY 05/06/14 01/14/19 INSULIN ASPART (NovoLOG) [NovoLOG 13 unit SQ AC-BRKFST 05/29/14 01/14/19 (formulary)] Insulin Detemir (Levemir) [Levemir] 35 unit SQ HS 11/17/14 01/14/19 INSULIN ASPART (NovoLOG) [NovoLOG 15 unit SQ AC-LUNCH 07/03/15 01/14/19 (formulary)] INSULIN ASPART (NovoLOG) [NovoLOG 15 unit SQ AC-SUPPER 07/03/15 01/14/19 (formulary)] Atorvastatin [Lipitor] 20 mg PO HS 08/02/16 01/14/19 Cyanocobalamin [Vitamin B-12] 250 mcg PO DAILY 08/02/16 01/14/19 Aspirin EC [Ecotrin Low Dose] 81 mg PO DAILY 11/02/18 01/14/19 Fluticasone/Vilanterol [Breo 1 puff INHALATION RT-DAILY 11/02/18 01/14/19 Ellipta 100-25 Mcg Inhaler] Montelukast [Singulair] 10 mg PO HS 11/02/18 01/14/19 Pantoprazole [Protonix] 40 mg PO DAILY 11/02/18 01/14/19 Semaglutide [Ozempic] 0.25 mg SQ TH 11/02/18 01/14/19 Spironolactone [Aldactone] 12.5 mg PO DAILY 11/02/18 01/14/19 HYDROcodone/APAP 7.5-325MG [[place] 1 tab PO Q4H PRN 01/14/19 01/14/19 7.5-325] Metoprolol Tartrate [Lopressor] 25 mg PO BID 01/14/19 01/14/19 Previous Rx's Medication Instructions Recorded Albuterol Nebulized [Ventolin 2.5 mg INHALATION RT-Q4H PRN #0 07/09/15 Nebulized] nebu Docusate [Colace] 100 mg PO BID cap 11/06/18 Furosemide [Lasix] 20 mg PO DAILY tab 11/06/18 Midodrine [ProAmatine] 5 mg PO AC-TID tab 11/06/18 Nitroglycerin Sl Tabs [Nitrostat] 0.4 mg SUBLINGUAL Q5M PRN tab 11/06/18 Allergies Allergy/AdvReac Type Severity Reaction Status Date / Time No Known Allergies Allergy Verified 01/14/19 14:04 Review of Systems ROS Statement: Those systems with pertinent positive or pertinent negative responses have been documented in the HPI. ROS Other: All systems not noted in ROS Statement are negative. Past Medical History Past Medical History: Atrial Fibrillation, Asthma, Coronary Artery Disease (CAD), Chest Pain / Angina, Heart Failure, Diabetes Mellitus, Hyperlipidemia, Hypertension, Musculoskeletal Disorder, Osteoarthritis (OA), Pneumonia, Renal Disease, Sleep Apnea/CPAP/BIPAP Additional Past Medical History / Comment(s): Arrhythmia, Afib-Converted with ablation 05/2013, Cardiomyopathy,DDD, Diabetic Neuropathy, Edema, Scolios is,Anemia, KIDNEY STONES History of Any Multi-Drug Resistant Organisms: None Reported Past Surgical History: Ablation, AICD, Back Surgery, Cardiac Ablation, Section, Cholecystectomy, Heart Catheterization, Hysterectomy, Joint Replacement, Orthopedic Surgery, Pacemaker Additional Past Surgical History / Comment(s): Varicose Vein Stripping,Rt Knee scope, D & C, Colonoscopy, Lithotripsy, Removal of kidney stones,LT TOTAL KNEE REPLACEMENT Past Anesthesia/Blood Transfusion Reactions: No Reported Reaction Additional Past Anesthesia/Blood Transfusion Reaction / Comment(s): HAS HAD NO PROBLEMS WITH PRIOR BLOOD TRANSFUSIONS Type of Cardiac Device: Permanent Pacemaker, AICD Device Placement Date:: 03/14/2011-Metronic LT CHEST Past Psychological History: Anxiety, Depression Smoking Status: Never smoker Past Alcohol Use History: None Reported Past Drug Use History: None Reported - Past Family History Father Family Medical History: Cancer Brother(s) Family Medical History: Cancer Sister(s) Family Medical History: Cancer Mother Family Medical History: Cancer General Exam - General Exam Comments Initial Comments: GENERAL: Patient is well-developed and well-nourished. Patient is nontoxic and well- hydrated and is in mild distress. ENT: Neck is soft and supple. No significant lymphadenopathy is noted. Oropharynx is clear. Moist mucous membranes. Neck has full range of motion without elicit ing any pain. EYES: The sclera were anicteric and conjunctiva were pink and moist. Extraocular m ovements were intact and pupils were equal round and reactive to light. Eyelids were unremarkable. PULMONARY: Unlabored respirations. Good breath sounds bilaterally. No audible rales rhonchi or wheezing was noted. CARDIOVASCULAR: There is a regular rate and rhythm without any murmurs gallops or rubs. ABDOMEN: Soft and nontender with normal bowel sounds. No palpable organomegaly was noted. There is no palpable pulsatile mass. SKIN: Skin is clear with no lesions or rashes and otherwise unremarkable. NEUROLOGIC: Patient is alert and oriented x3. Cranial nerves II through XII are grossly intact. Motor and sensory are also intact. Normal speech, volume and content. Symmetrical smile. MUSCULOSKELETAL: Normal extremities with adequate strength and full range of motion. No lower extremity swelling or edema. No calf tenderness. LYMPHATICS: No significant lymphadenopathy is noted PSYCHIATRIC: Normal psychiatric evaluation. Limitations: no limitations Course Vital Signs 01/14/19 12:36 Temperature 98.1 F Pulse Rate 68 Respiratory 18 Rate Blood Pressure 138/75 O2 Sat by Pulse 99 Oximetry Medical Decision Making - Medical Decision Making EKG shows normal sinus rhythm at 65 bpm OH interval is on a 44 QRS on a 32 QT interval 460 QTC is 478. Patient's EKG shows T-wave inversions in leads II, III, and F aVF as well as precordial leads V4 V5 and V6. No ST segment elevations noted Chest x-ray showed no acute abnormalities. Patient had unstable angina/started the patient on heparin. I spoke with Dr. Snell he agreed to admit the patient admitted the patient wrote admitting orders I continued heparin Nitropaste on the floor. I consult cardiology. - Lab Data Result diagrams: 01/14/19 13:09 01/14/19 13:09 Lab Results 01/14/19 01/14/19 01/14/19 Range/Units 13:09 13:09 13:09 WBC 6.2 (3.8-10.6) k/uL RBC 4.34 (3.80-5.40) m/uL Hgb 12.5 (11.4-16.0) gm/dL Hct 38.9 (34.0-46.0) % MCV 89.5 (80.0-100.0) fL MCH 28.8 (25.0-35.0) pg MCHC 32.2 (31.0-37.0) g/dL RDW 15.9 H (11.5-15.5) % Plt Count 136 L (150-450) k/uL Neutrophils % 74 % Lymphocytes % 16 % Monocytes % 5 % Eosinophils % 3 % Basophils % 1 % Neutrophils # 4.6 (1.3-7.7) k/uL Lymphocytes # 1.0 (1.0-4.8) k/uL Monocytes # 0.3 (0-1.0) k/uL Eosinophils # 0.2 (0-0.7) k/uL Basophils # 0.1 (0-0.2) k/uL PT 10.1 (9.0-12.0) sec INR 0.9 (<1.2) APTT 21.2 L (22.0-30.0) sec Sodium 140 (137-145) mmol/L Potassium 4.7 (3.5-5.1) mmol/L Chloride 104 (98-107) mmol/L Carbon Dioxide 27 (22-30) mmol/L Anion Gap 9 mmol/L BUN 33 H (7-17) mg/dL Creatinine 1.27 H (0.52-1.04) mg/dL Est GFR (CKD-EPI)AfAm 52 (>60 ml/min/1.73 sqM) Est GFR (CKD-EPI)NonAf 45 (>60 ml/min/1.73 sqM) Glucose 290 H (74-99) mg/dL Calcium 9.7 (8.4-10.2) mg/dL Magnesium 1.8 (1.6-2.3) mg/dL Total Bilirubin 1.0 (0.2-1.3) mg/dL AST 35 (14-36) U/L ALT 32 (9-52) U/L Alkaline Phosphatase 159 H (38-126) U/L Troponin I (0.000-0.034) ng/mL Total Protein 7.0 (6.3-8.2) g/dL Albumin 4.2 (3.5-5.0) g/dL 01/14/19 Range/Units 13:09 WBC (3.8-10.6) k/uL RBC (3.80-5.40) m/uL Hgb (11.4-16.0) gm/dL Hct (34.0-46.0) % MCV (80.0-100.0) fL MCH (25.0-35.0) pg MCHC (31.0-37.0) g/dL RDW (11.5-15.5) % Plt Count (150-450) k/uL Neutrophils % % Lymphocytes % % Monocytes % % Eosinophils % % Basophils % % Neutrophils # (1.3-7.7) k/uL Lymphocytes # (1.0-4.8) k/uL Monocytes # (0-1.0) k/uL Eosinophils # (0-0.7) k/uL Basophils # (0-0.2) k/uL PT (9.0-12.0) sec INR (<1.2) APTT (22.0-30.0) sec Sodium (137-145) mmol/L Potassium (3.5-5.1) mmol/L Chloride (98-107) mmol/L Carbon Dioxide (22-30) mmol/L Anion Gap mmol/L BUN (7-17) mg/dL Creatinine (0.52-1.04) mg/dL Est GFR (CKD-EPI)AfAm (>60 ml/min/1.73 sqM) Est GFR (CKD-EPI)NonAf (>60 ml/min/1.73 sqM) Glucose (74-99) mg/dL Calcium (8.4-10.2) mg/dL Magnesium (1.6-2.3) mg/dL Total Bilirubin (0.2-1.3) mg/dL AST (14-36) U/L ALT (9-52) U/L Alkaline Phosphatase (38-126) U/L Troponin I <0.012 (0.000-0.034) ng/mL Total Protein (6.3-8.2) g/dL Albumin (3.5-5.0) g/dL Critical Care Time Critical Care Time: Yes Total Critical Care Time: 35 Disposition Clinical Impression: Unstable angina pectoris Disposition: ADMITTED IP TO THIS HOSP Referrals: Vishal Snell MD [Primary Care Provider] - 1-2 days Time of Disposition: 14:28
[2019-01-14 13:30] LABS: Basophils # (A) 0.1 k/uL (0-0.2); Basophils % (A) 1 %; Eosinophils # (A) 0.2 k/uL (0-0.7); Eosinophils % (A) 3 %; HCT 38.9 % (34.0-46.0); HGB 12.5 gm/dL (11.4-16.0); Lymphocytes % (A) 16 %; MCH 28.8 pg (25.0-35.0); MCHC 32.2 g/dL (31.0-37.0); MCV 89.5 fL (80.0-100.0); Monocytes # (A) 0.3 k/uL (0-1.0); Monocytes % (A) 5 %; Neutrophils # (A) 4.6 k/uL (1.3-7.7); Neutrophils % (A) 74 %; Platelet Count 136 k/uL (150-450); RBC 4.34 m/uL (3.80-5.40); RDW 15.9 % (11.5-15.5); WBC 6.2 k/uL (3.8-10.6)
[2019-01-14 13:45] LABS: Albumin 4.2 g/dL (3.5-5.0); Calcium 9.7 mg/dL (8.4-10.2); Magnesium 1.8 mg/dL (1.6-2.3); Potassium 4.7 mmol/L (3.5-5.1)
--- NOTE | 2019-01-14 13:48 | XR ---
EXAMINATION TYPE: XR chest 2V DATE OF EXAM: 01/14/2019 COMPARISON: September 2018 HISTORY: Shortness of breath TECHNIQUE: Frontal and lateral views of the chest are obtained. FINDINGS: Scattered senescent parenchymal changes noted. Hyperinflation compatible with COPD. No evidence for infiltrate. No evidence for atelectasis. Heart size is stable. Mediastinal structures are stable and grossly unremarkable. No evidence for hilar prominence. Degenerative changes dorsal spine. IMPRESSION: 1. No evidence for acute pulmonary disease.
[2019-01-14 13:51] LABS: INR 0.9 (<1.2); Prothrombin Time 10.1 sec (9.0-12.0)
[2019-01-14 14:05] LABS: Partial Thromboplastin Time 21.2 sec (22.0-30.0)
[2019-01-14] MEDS ORDERED: HEPARIN SODIUM,PORCINE 5,000 UNIT/ML 1 ML VIAL IV ONE (14:25)
[2019-01-14] MEDS ORDERED: HEPARIN SOD,PORK IN 0.45% NACL 25,000 UNIT in 0.45% NACL 1 250ML.BAG IV SCH (14:30)
[2019-01-14] MEDS ORDERED: SODIUM CHLORIDE 0.9% 1,000 ML IV STA (15:20)
[2019-01-14 17:40] LABS: Glucose,Whole Blood 314 mg/dL (75-99)
[2019-01-14] MEDS: INSULIN ASPART (NovoLOG) 100 UNIT/ML VIAL SQ SCH ×3 (17:40→21:02)
[2019-01-14] MEDS: NITROGLYCERIN OINT 1 INCH/GM PACKET TOPICAL SCH (17:40)
[2019-01-14] MEDS ORDERED: HYDROcodone/APAP 7.5-325MG 1 EACH TAB PO PRN (17:47)
[2019-01-14] MEDS ORDERED: ALBUTEROL NEBULIZED 2.5 MG/3 ML INHALATION PRN (17:47)
[2019-01-14 20:41] LABS: Glucose,Whole Blood 214 mg/dL (75-99)
[2019-01-14] MEDS ORDERED: ATORVASTATIN 20 MG TAB PO SCH (21:00)
[2019-01-14] MEDS ORDERED: MONTELUKAST 10 MG TAB PO SCH (21:00)
[2019-01-14] MEDS ORDERED: INSULIN DETEMIR (LEVEMIR) 100 UNIT/ML SYR SQ SCH (21:00)
[2019-01-14] MEDS: METOPROLOL TARTRATE 25 MG TAB PO SCH (21:02)
[2019-01-14] MEDS: DOCUSATE 100 MG CAP PO SCH (21:02)
--- NOTE | 2019-01-14 22:05 | XR ---
EXAMINATION TYPE: XR abdomen 2V DATE OF EXAM: 01/14/2019 COMPARISON: 05/06/2014 HISTORY: Abdominal pain TECHNIQUE: Supine and upright views FINDINGS: There is no sign of free air. There is bilateral multilevel lumbar spine fusion surgery. [place] ng bases are clear. Heart appears enlarged. There is a left axillary pacemaker. There are no patholog ic calcifications over the kidneys. There are some a few gas-filled loops of bowel without disproport ionate dilation of any one loop. IMPRESSION: Possible small bowel ileus. This is a change compared to last exam. There is increased de nsity over the abdomen compared to last exam that could relate to some dilated fluid-filled small bow el. Cardiomegaly.
--- NOTE | 2019-01-14 22:32 | HP ---
HISTORY AND PHYSICAL CHIEF COMPLAINT: This patient is a 63-year-old white female with past medical history of pacemaker placement, atrial fibrillation, cardiac ablation, diabetes mellitus, hypertension, high cholesterol, intermittent chest pain with some sharp tingling, radiation to her chest, almost like nerve pain, she states. Difficulty breathing. Denies any abdominal pain, nausea, vomiting, diarrhea. She had recent lumbar surgery. She saw the lumbar surgeon today, who said she is doing very well. She stopped wearing her lumbar brace today. She never had a heart attack. Strong family history of heart disease. Denies any swelling, calf tenderness or pain. HOME MEDICATIONS: Home medications include: 1. NovoLog before meals and at bedtime. 2. Mag oxide. 3. Levemir. 4. Insulin to scale. 5. Lipitor 20 at bedtime. 6. Ecotrin 81 mg daily. 7. Singulair 10 mg daily. 8. Protonix 40 mg daily. 9. Ozempic 0.25 mg . 10.Aldactone 12.5 daily. 11.Truxton 7.5 q.4. 12.Lopressor 25 b.i.d. ALLERGIES: NEGATIVE. REVIEW OF SYSTEMS: Fourteen-point review of systems negative except for mentioned in HPI. PAST MEDICAL HISTORY: 1. Atrial fibrillation. 2. Asthma. 3. Coronary artery disease. 4. Angina. 5. Diabetes mellitus. 6. Dyslipidemia. 7. Hypertension. 8. Osteoarthritis. 9. Pneumonia. 10.Renal disease. 11.Sleep apnea. 12.Cardiac ablation. 13.AICD. 14.Heart catheterization. 15.Cholecystectomy. 16.Joint replacement. 17.Orthopedic surgery. 18.Pacemaker. 19.Lithotripsy. 20.Varicose vein stripping. 21.Removal of renal stones. 22.Permanent pacemaker. 23.Anxiety. 24.Depression. No smoking. No alcohol. PAST FAMILY HISTORY: Father with cancer. PHYSICAL EXAMINATION: CONSTITUTIONAL: She is alert. No acute distress. HEENT: Normocephalic, atraumatic. LUNGS: Clear. HEART: S1, S2. No murmurs, rubs, gallops. OPHTHALMOLOGIC: Pupils equal, round, reactive to light and accommodation. She has increased bowel sounds x4. SKIN: Warm, dry. No rashes. NEUROLOGIC: Cranial nerves are intact. MUSCULOSKELETAL: Range of motion full x4. LYMPH: No lymphadenopathy. PSYCH: Fair mood and affect. Temperature 98.1, pulse 68, respiratory rate 18, blood pressure 138/75, oxygen 99%. EKG sinus rhythm. Chest x-ray negative. Unstable angina. She is started on heparin. Cardiology is consulted. Rule out troponin. Serial troponins for myocardial infarction will be done. Insulin before meals and at bedtime for control. Abdominal x-ray will be done for increased bowel sounds. Please see further orders. MMODL / IJN: [id number] /
[2019-01-15] MEDS: NITROGLYCERIN OINT 1 INCH/GM PACKET TOPICAL SCH ×3 (01:04→11:31)
[2019-01-15 04:15] LABS: Cholesterol 109 mg/dL (<200); HDL Cholesterol 57 mg/dL (40-60); LDL Cholesterol,Calculated 28 mg/dL (0-99); Triglycerides 121 mg/dL (<150)
[2019-01-15] MEDS ORDERED: PANTOPRAZOLE 40 MG TABLET PO SCH (07:30)
[2019-01-15] MEDS ORDERED: INSULIN ASPART (NovoLOG) 100 UNIT/ML VIAL SQ SCH ×2 (07:30→12:30)
[2019-01-15] MEDS ORDERED: SYMBICORT 80-4.5 MCG INHALER INHALATION SCH (08:00)
--- NOTE | 2019-01-15 08:23 | NM ---
EXAMINATION TYPE: NM pul vent and perfuse DATE OF EXAM: 01/15/2019 COMPARISON: Chest x-ray dated 01/14/[address] scan of the chest dated 10/19/2018 HISTORY: Chest pain, cough and difficulty breathing TECHNIQUE: Utilizing inhalation of 40.2 mCi Tc 99m DTPA aerosol and intravenous injection of 4.89 mC i of Tc 99m MAA, ventilation and perfusion images are acquired post injection in multiple projections . FINDINGS: There is a normal distribution of radiotracer. There are no VQ mismatches. IMPRESSION: EXAMINATION IS LOW PROBABILITY FOR PULMONARY EMBOLUS.
[2019-01-15 08:50] VITALS: RESP 18
[2019-01-15] MEDS ORDERED: SPIRONOLACTONE 25 MG TAB PO SCH (09:00)
[2019-01-15] MEDS ORDERED: MAGNESIUM OXIDE 400 MG TAB PO SCH (09:00)
[2019-01-15] MEDS ORDERED: FUROSEMIDE 40 MG TAB PO SCH (09:00)
[2019-01-15] MEDS ORDERED: ASPIRIN 81 MG PO SCH (09:00)
[2019-01-15] MEDS ORDERED: CYANOCOBALAMIN 500 MCG TAB PO SCH (09:00)
[2019-01-15] MEDS ORDERED: ASPIRIN 325 MG TAB PO SCH (09:00)
--- NOTE | 2019-01-15 10:38 | P.CRDCN ---
History of Present Illness Consult date: 01/15/19 History of present illness: This is a 63-year-old female with history of a nonischemic cardiomyopathy status post AICD implantation and chronic congestive heart failure being followed by Dr. CELINA Ling regularly. Patient recently underwent back surgery. Prior to the back surgery. Patient had a cardiac catheterization because of positive stress test. She was found to have mild coronary artery disease in the distal LAD without any critical blockages. Patient ,yesterday went to [place] to have follow-up with her surgeon for back. Apparently it was a stressful drive. Last night patient woke up with pins and needles across the chest like a neuropathy discomfort. This was followed by some tightness and pain and finally patient came to the emergency room. EKGs did not reveal any acute changes. Cardiac enzymes are negative. Patient also had a pulmonary perfusion study which is low probability for pulmonary emboli. Given negative workup and history of recent cardiac catheterization, not showing any significant coronary artery disease, I feel that her pains are noncardiac in nature. Patient could be discharged home from cardiac standpoint. Follow up with Dr. CELINA Ling in a week Review of Systems As per the chart Past Medical History Past Medical History: Atrial Fibrillation, Asthma, Coronary Artery Disease (CAD), Chest Pain / Angina, Heart Failure, Diabetes Mellitus, Hyperlipidemia, Hypertension, Musculoskeletal Disorder, Osteoarthritis (OA), Pneumonia, Renal Disease, Sleep Apnea/CPAP/BIPAP Additional Past Medical History / Comment(s): Arrhythmia, Afib-Converted with ablation 05/2013, Cardiomyopathy,DDD, Diabetic Neuropathy, Edema, Scoliosis,Anemia, KIDNEY STONES. History of Any Multi-Drug Resistant Organisms: None Reported Past Surgical History: Ablation, AICD, Back Surgery, Cardiac Ablation, Section, Cholecystectomy, Heart Catheterization, Hysterectomy, Joint Replacement, Orthopedic Surgery, Pacemaker Additional Past Surgical History / Comment(s): Varicose Vein Stripping,Rt Knee scope, D & C, Colonoscopy, Lithotripsy, Removal of kidney stones,LT TOTAL KNEE REPLACEMENT, Major back surgery 11/13/2018 in [facility], "Fusion and stenosis taken care of as well as spurs removed". Past Anesthesia/Blood Transfusion Reactions: No Reported Reaction Additional Past Anesthesia/Blood Transfusion Reaction / Comment(s): HAS HAD NO PROBLEMS WITH PRIOR BLOOD TRANSFUSIONS Type of Cardiac Device: Permanent Pacemaker, AICD Device Placement Date:: 03/14/2011-Metronic LT CHEST Past Psychological History: Anxiety, Depression Additional Psychological History / Comment(s): . Lives with her son in [place]. She is on disability. She has no experience. She has no travel history. She is a lifelong nonsmoker. No history of recreational drug use. No history of alcohol use. No animals in the home at this time. Smoking Status: Never smoker Past Alcohol Use History: None Reported Past Drug Use History: None Reported - Past Family History Father Family Medical History: Cancer Brother(s) Family Medical History: Cancer Sister(s) Family Medical History: Cancer Mother Family Medical History: Cancer Medications and Allergies Home Medications Medication Instructions Recorded Confirmed Type Magnesium Oxide [Mag-Ox] 250 mg PO DAILY 05/06/14 01/14/19 History Insulin Detemir (Levemir) [Levemir] 35 unit SQ HS 11/17/14 01/14/19 History Atorvastatin [Lipitor] 20 mg PO HS 08/02/16 01/14/19 History Cyanocobalamin [Vitamin B-12] 250 mcg PO DAILY 08/02/16 01/14/19 History Aspirin EC [Ecotrin Low Dose] 81 mg PO DAILY 11/02/18 01/14/19 History Fluticasone/Vilanterol [Breo 1 puff INHALATION RT-DAILY 11/02/18 01/14/19 History Ellipta 100-25 Mcg Inhaler] Montelukast [Singulair] 10 mg PO HS 11/02/18 01/14/19 History Pantoprazole [Protonix] 40 mg PO DAILY 11/02/18 01/14/19 History Semaglutide [Ozempic] 0.25 mg SQ TH 11/02/18 01/14/19 History Spironolactone [Aldactone] 12.5 mg PO DAILY 11/02/18 01/14/19 History Docusate [Colace] 100 mg PO BID cap 11/06/18 01/14/19 Rx Midodrine [ProAmatine] 5 mg PO AC-TID tab 11/06/18 01/14/19 Rx Nitroglycerin Sl Tabs [Nitrostat] 0.4 mg SUBLINGUAL Q5M PRN tab 11/06/18 01/14/19 Rx Albuterol Sulfate [Albuterol 1 - 2 puff PO RT-Q4H PRN 01/14/19 01/14/19 History Sulfate Hfa] Furosemide [Lasix] 40 mg PO DAILY 01/14/19 01/14/19 History HYDROcodone/APAP 7.5-325MG [[place] 1 tab PO Q4H PRN 01/14/19 01/14/19 History 7.5-325] Insulin Aspart [NovoLOG Flexpen] 13 units SQ AC-BRKFST 01/14/19 01/14/19 History Insulin Aspart [NovoLOG Flexpen] 15 units SQ AC-LUNCH 01/14/19 01/14/19 History Insulin Aspart [NovoLOG Flexpen] 15 units SQ AC-SUPPER 01/14/19 01/14/19 History Insulin Aspart [NovoLOG Flexpen] See Protocol SQ AC-TID 01/14/19 01/14/19 History Metoprolol Tartrate [Lopressor] 25 mg PO BID 01/14/19 01/14/19 History Allergies Allergy/AdvReac Type Severity Reaction Status Date / Time No Known Allergies Allergy Verified 01/14/19 14:04 Physical Exam Vitals: Vital Signs Temp Pulse Pulse Resp BP BP Pulse Ox 01/15/19 08:50 80 01/15/19 08:00 98.2 F 62 18 97 01/15/19 04:00 78 19 105/57 98 01/15/19 00:00 91 18 101/62 98 01/14/19 20:28 95 01/14/19 20:00 97.5 F L 67 18 130/73 94 L 01/14/19 16:03 62 20 121/61 97 01/14/19 16:00 97.8 F 85 15 114/70 95 01/14/19 15:00 68 20 111/65 95 01/14/19 14:00 66 24 107/79 95 01/14/19 12:36 98.1 F 68 18 138/75 99 Intake and Output 01/14/19 01/15/19 01/15/19 22:59 06:59 14:59 Intake Total 407.333 Balance 407.333 Intake: Intake, IV Titration 47.333 Amount Heparin Sod,Pork in 0.45% 47.333 NaCl 25,000 unit In 0.45 % NaCl 1 250ml.bag @ 8. 9989 UNITS/KG/HR 10 mls/ hr IV .Q24H BIN Rx#: [id number] Oral 360 Other: # Voids 0 1 1 Weight 111.3 kg GENERAL EXAM: Patient is alert and oriented and doesn't appear to be in any acute distress HEENT: Normocephalic. Normal reaction of pupils, equal size, normal range of extraocular motion. No erythema or exudates in the throat. NECK: No masses, no nuchal rigidity. CHEST: No chest wall deformity. LUNGS: Equal air entry with no crackles or wheeze. HEART: S1 and S2 normal with no audible mumurs or gallops. Regular rhythm, femor als equal on both sides.. ABDOMEN: No hepatosplenomegaly, normal bowel sounds, no guarding or rigidity. SKIN: No rashes CENTRAL NERVOUS SYSTEM: No focal deficits. EXTREMITIES: No cyanosis, clubbing or edema. Results 01/14/19 13:09 01/14/19 13:09 Cardiac Enzymes 01/14/19 01/14/19 01/14/19 Range/Units 13:09 13:09 19:54 AST 35 (14-36) U/L Troponin I <0.012 <0.012 (0.000-0.034) ng/mL 01/15/19 Range/Units 01:09 AST (14-36) U/L Troponin I <0.012 (0.000-0.034) ng/mL Coagulation 01/14/19 01/14/19 01/15/19 Range/Units 13:09 19:54 03:16 PT 10.1 (9.0-12.0) sec APTT 21.2 L 40.1 H 48.7 H (22.0-30.0) sec 01/15/19 Range/Units 06:16 PT (9.0-12.0) sec APTT 57.8 H (22.0-30.0) sec Lipids 01/15/19 Range/Units 03:16 Triglycerides 121 (<150) mg/dL Cholesterol 109 (<200) mg/dL HDL Cholesterol 57 (40-60) mg/dL CBC 01/14/19 Range/Units 13:09 WBC 6.2 (3.8-10.6) k/uL RBC 4.34 (3.80-5.40) m/uL Hgb 12.5 (11.4-16.0) gm/dL Hct 38.9 (34.0-46.0) % Plt Count 136 L (150-450) k/uL Comprehensive Metabolic Panel 01/14/19 Range/Units 13:09 Sodium 140 (137-145) mmol/L Potassium 4.7 (3.5-5.1) mmol/L Chloride 104 (98-107) mmol/L Carbon Dioxide 27 (22-30) mmol/L BUN 33 H (7-17) mg/dL Creatinine 1.27 H (0.52-1.04) mg/dL Glucose 290 H (74-99) mg/dL Calcium 9.7 (8.4-10.2) mg/dL AST 35 (14-36) U/L ALT 32 (9-52) U/L Alkaline Phosphatase 159 H (38-126) U/L Total Protein 7.0 (6.3-8.2) g/dL Albumin 4.2 (3.5-5.0) g/dL Current Medications Generic Name Dose Route Start Last Admin Trade Name Freq PRN Reason Stop Dose Admin Hydrocodone Bitart/Acetaminophen 1 each 01/14/19 17:47 01/14/19 22:37 [place] 7.5-325 PO 1 each Q4H PRN Administration Moderate Pain Albuterol Sulfate 2.5 mg 01/14/19 17:47 01/15/19 08:48 Ventolin Nebulized INHALATION 2.5 mg RT-Q4H PRN Administration Shortness Of Breath Aspirin 81 mg 01/15/19 09:00 Aspirin PO DAILY [facility] Atorvastatin Calcium 20 mg 01/14/19 21:00 01/14/19 21:02 Lipitor PO 20 mg HS BIN Administration Budesonide/Formoterol Fumarate 2 puff 01/15/19 08:00 01/15/19 08:48 Symbicort 80-4.5 Mcg Inhaler INHALATION 2 puff RT-BID BIN Administration Cyanocobalamin 250 mcg 01/15/19 09:00 Vitamin B-12 PO DAILY [facility] Docusate Sodium 100 mg 01/14/19 21:00 01/14/19 21:02 Colace PO 100 mg BID BIN Administration Furosemide 40 mg 01/15/19 09:00 Lasix PO DAILY [facility] Heparin Sodium/Sodium Chloride 250 mls @ 10 mls/hr 01/14/19 14:30 01/14/19 20:00 25,000 unit/ Sodium Chloride IV 10.8 units/kg/hr .Q24H BIN 12 mls/hr Titration Protocol 8.9989 UNITS/KG/HR Sodium Chloride 1,000 mls @ 20 mls/hr 01/14/19 15:20 01/14/19 15:20 Saline 0.9% IV 01/15/19 15:19 20 mls/hr .Q24H STA Administration Insulin Aspart 13 unit 01/15/19 07:30 Novolog SQ AC-BRKFST BIN Insulin Aspart 15 unit 01/15/19 12:30 Novolog SQ AC-LUNCH BIN Insulin Aspart 15 unit 01/14/19 17:30 01/14/19 17:40 Novolog SQ 15 unit AC-SUPPER BIN Administration Insulin Aspart 0 unit 01/14/19 17:30 01/14/19 21:02 Novolog SQ 4 unit ACHS BIN Administration Protocol Insulin Detemir 35 unit 01/14/19 21:00 01/14/19 21:03 Levemir SQ 35 unit HS BIN Administration Magnesium Oxide 400 mg 01/15/19 09:00 Mag-Ox PO DAILY BIN Metoprolol Tartrate 25 mg 01/14/19 21:00 01/14/19 21:02 Lopressor PO 25 mg BID BIN Administration Midodrine 5 mg 01/15/19 07:30 Proamatine PO AC-TID BIN Montelukast Sodium 10 mg 01/14/19 21:00 01/14/19 21:02 Singulair PO 10 mg HS BIN Administration Nitroglycerin 0.4 mg 01/14/19 15:37 Nitrostat SUBLINGUAL Q5M PRN Chest Pain Nitroglycerin 1 inch 01/14/19 18:00 01/15/19 07:03 Nitro-Bid Oint TOPICAL Not Given Q6HR [facility] Non-Formulary Medication 0.25 mg 01/20/19 09:00 Semaglutide [Ozempic] SQ TH BIN Pantoprazole Sodium 40 mg 01/15/19 07:30 Protonix PO AC-BRKFST BIN Spironolactone 12.5 mg 01/15/19 09:00 Aldactone PO DAILY BIN Intake and Output 01/14/19 01/15/19 01/15/19 22:59 06:59 14:59 Intake Total 407.333 Balance 407.333 Intake: Intake, IV Titration 47.333 Amount Heparin Sod,Pork in 0.45% 47.333 NaCl 25,000 unit In 0.45 % NaCl 1 250ml.bag @ 8. 9989 UNITS/KG/HR 10 mls/ hr IV .Q24H BIN Rx#: [id number] Oral 360 Other: # Voids 0 1 1 Weight 111.3 kg 01/14/19 13:09 01/14/19 13:09 EKG Interpretations (text) Sinus rhythm with intraventricular conduction delay suggestive of left bundle. Assessment and Plan (1) Atypical chest pain Current Visit: No Status: Acute Code(s): R07.89 - OTHER CHEST PAIN SNOMED Code(s): 066748184 (2) Cardiomyopathy Current Visit: No Status: Acute Code(s): I42.9 - CARDIOMYOPATHY, UNSPECIFIED SNOMED Code(s): 67877125 (3) Chronic CHF Current Visit: No Status: Acute Code(s): I50.9 - HEART FAILURE, UNSPECIFIED SNOMED Code(s): 41586556 (4) Diabetes Current Visit: No Status: Acute Code(s): E11.9 - TYPE 2 DIABETES MELLITUS WITHOUT COMPLICATIONS SNOMED Code(s): 86490338 Plan: Patient could be discharged home from Cardec standpoint. Cardiac workup is been negative. Recently Did not show any obstructive disease of significance. Fol low-up with Dr. CELINA Ling
[2019-01-15] MEDS: INSULIN ASPART (NovoLOG) 100 UNIT/ML VIAL SQ SCH ×4 (11:16→17:07)
[2019-01-15] MEDS: MIDODRINE 5 MG TAB PO SCH ×3 (11:30→17:07)
[2019-01-15] MEDS: METOPROLOL TARTRATE 25 MG TAB PO SCH (11:31)
[2019-01-15] MEDS: DOCUSATE 100 MG CAP PO SCH (11:31)
[2019-01-15 12:16] LABS: Glucose,Whole Blood 185 mg/dL (75-99)
[2019-01-15 15:16] VITALS: BMI 40.8
[2019-01-15 16:02] VITALS: BP 120/74; PULSE 67; TEMP 98.3
[2019-01-20] MEDS ORDERED: SEMAGLUTIDE 0.25 MG SQ SCH (09:00)
== END 2019-01-15 17:10 | disposition home or self-care (01) | DRG 313 ==
LOC: EC 12:34 → 3SCARD 15:37
PROVIDERS: ADMIT Family Medicine; ATTEND Family Medicine
DX: R07.89 Other chest pain (principal); I25.110 Atherosclerotic heart disease of native coronary artery with unstable angina pectoris; I42.8 Other cardiomyopathies; E11.40 Type 2 diabetes mellitus with diabetic neuropathy, unspecified; E78.00 Pure hypercholesterolemia, unspecified; E78.5 Hyperlipidemia, unspecified; I11.0 Hypertensive heart disease with heart failure; I48.91 Unspecified atrial fibrillation; I50.9 Heart failure, unspecified; J45.909 Unspecified asthma, uncomplicated; M41.9 Scoliosis, unspecified; Z79.4 Long term (current) use of insulin; Z79.82 Long term (current) use of aspirin; Z79.899 Other long term (current) drug therapy; Z80.9 Family history of malignant neoplasm, unspecified; Z82.49 Family history of ischemic heart disease and other diseases of the circulatory system; Z87.442 Personal history of urinary calculi; Z90.710 Acquired absence of both cervix and uterus; Z95.810 Presence of automatic (implantable) cardiac defibrillator; Z96.652 Presence of left artificial knee joint; Z98.1 Arthrodesis status; G47.30 Sleep apnea, unspecified; Z99.89 Dependence on other enabling machines and devices; Z87.01 Personal history of pneumonia (recurrent); F41.9 Anxiety disorder, unspecified; F32.9 Major depressive disorder, single episode, unspecified; M19.90 Unspecified osteoarthritis, unspecified site; Z90.49 Acquired absence of other specified parts of digestive tract
CPT/HCPCS: 36415; 71046; 74019; 78582; 80053; 80061; 83735; 84484; 85025; 85379; 85610; 85730; 93005; 94640; 96365; 96375; 96376; 99291

== ENCOUNTER 2019-02-18 12:43 | Emergency (ER) | payer MEDICARE, OTHER ==
[2019-02-18] MEDS ORDERED: SODIUM CHLORIDE 0.9% 500 ML 500 ML IV STA (12:48)
[2019-02-18] MEDS ORDERED: SODIUM CHLORIDE 0.9% 1,000 ML IV STA (12:48)
[2019-02-18 12:49] LABS: Glucose,Whole Blood 236 mg/dL (75-99)
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
[2019-02-18 13:01] LABS: Anisocytosis Slight; Basophils % (A) 1 %; Eosinophils # (A) 0.2 k/uL (0-0.7); Eosinophils % (A) 2 %; HCT 38.6 % (34.0-46.0); HGB 12.7 gm/dL (11.4-16.0); Hypochromasia Slight; Lymphocytes # (A) 1.9 k/uL (1.0-4.8); Lymphocytes % (A) 26 %; MCH 29.3 pg (25.0-35.0); MCHC 32.9 g/dL (31.0-37.0); MCV 89.2 fL (80.0-100.0); Mean Platelet Volume 8.5; Monocytes # (A) 0.3 k/uL (0-1.0); Monocytes % (A) 5 %; Neutrophils # (A) 4.8 k/uL (1.3-7.7); Neutrophils % (A) 65 %; Platelet Count 155 k/uL (150-450); RBC 4.33 m/uL (3.80-5.40); WBC 7.4 k/uL (3.8-10.6)
--- NOTE | 2019-02-18 13:04 | XR ---
EXAMINATION TYPE: XR chest 1V portable DATE OF EXAM: 02/18/2019 COMPARISON: Prior chest x-ray 01/14/2019 HISTORY: Trauma TECHNIQUE: Single frontal view of the chest is obtained. FINDINGS: Patient is rotated. Generator is present in left pectoral region, there is an intracardiac defibrillator lead coursing towards the right ventricle. There is no evident pneumothorax or pleural effusion. Heart is enlarged. Bone mineralization maintained. Exam is somewhat limited. IMPRESSION: Cardiomegaly. Rotated exam, follow-up as indicated.
--- NOTE | 2019-02-18 13:06 | XR ---
AP pelvis HISTORY: Trauma Single frontal view of the pelvis Exam is somewhat limited technically, patient is rotated. Bone mineralization is reduced. Alignment a nd joint spaces are maintained. Postop changes noted in the lumbar spine, lumbosacral fusion is prese nt. IMPRESSION: No acute fracture is evident. Follow-up suggested.
[2019-02-18 13:13] LABS: ALT 22 U/L (4-34); AST 33 U/L (14-36); African American GFR (CKD) 55 (>60 ml/min/1.73 sqM); Albumin 4.2 g/dL (3.5-5.0); Alcohol <10 mg/dL; Alkaline Phosphatase 146 U/L (38-126); Amylase 112 U/L (30-110); Anion Gap 10 mmol/L; Blood Urea Nitrogen 32 mg/dL (7-17); Calcium 9.8 mg/dL (8.4-10.2); Carbon Dioxide 25 mmol/L (22-30); Chloride 104 mmol/L (98-107); Glucose 239 mg/dL (74-99); Non-African American GFR(CKD) 48 (>60 ml/min/1.73 sqM); Potassium 4.3 mmol/L (3.5-5.1); Sodium 139 mmol/L (137-145); Total Bilirubin 0.9 mg/dL (0.2-1.3); Total Protein 6.9 g/dL (6.3-8.2)
[2019-02-18 13:20] LABS: Partial Thromboplastin Time 23.6 sec (22.0-30.0); Prothrombin Time 10.4 sec (9.0-12.0)
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
[2019-02-18 13:30] LABS: Creatine Kinase 92 U/L (30-135)
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
[2019-02-18 13:34] VITALS: BP 122/93; PULSE 60; RESP 16; TEMP 97.3
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
[2019-02-18 13:43] LABS: Creatine Kinase MB 1.4 ng/mL (0.0-2.4); Troponin I <0.012 ng/mL (0.000-0.034)
[2019-02-18] MEDS ORDERED: KETOROLAC 30 MG/ML 1 ML VIAL IVP STA (14:17)
[2019-02-18] MEDS ORDERED: MORPHINE SULFATE 2 MG/ML SYRINGE IVP STA (14:17)
[2019-02-18] MEDS ORDERED: SODIUM CHLORIDE 0.9% 1,000 ML IV ONE (14:33)
== END 2019-02-18 15:45 | disposition home or self-care (01) ==
LOC: EC 12:43
DX: S06.0X9A Concussion with loss of consciousness of unspecified duration, initial encounter (principal); I48.91 Unspecified atrial fibrillation; J45.909 Unspecified asthma, uncomplicated; I25.119 Atherosclerotic heart disease of native coronary artery with unspecified angina pectoris; I11.0 Hypertensive heart disease with heart failure; I50.9 Heart failure, unspecified; E11.40 Type 2 diabetes mellitus with diabetic neuropathy, unspecified; E78.5 Hyperlipidemia, unspecified; M19.90 Unspecified osteoarthritis, unspecified site; G47.30 Sleep apnea, unspecified; Z79.4 Long term (current) use of insulin; Z79.51 Long term (current) use of inhaled steroids; Z79.82 Long term (current) use of aspirin; Z79.899 Other long term (current) drug therapy; Z87.01 Personal history of pneumonia (recurrent); Z95.0 Presence of cardiac pacemaker; Z96.652 Presence of left artificial knee joint; Z99.89 Dependence on other enabling machines and devices; Z98.890 Other specified postprocedural states; V43.52XA Car driver injured in collision with other type car in traffic accident, initial encounter; Y92.410 Unspecified street and highway as the place of occurrence of the external cause
CPT/HCPCS: 99285; 96374; 96375; 96361 ×2; 36415; 93005; 86900; 86901; 80053; 82150; 82550; 82553; 83605; 83690; 84484; 85025; 85610; 85730; 86850; 72170; 71045; 72125; 70486; 70450; 71260; 74177; G0480; J1885; J2270; Q9967; 80320

== ENCOUNTER → 2019-02-18 | Outpatient (CLI) | payer MEDICARE, OTHER ==
--- NOTE | 2019-02-21 10:24 | MM ---
Reason for exam: screening (asymptomatic). Last mammogram was performed 2 years and 1 month ago. History: Patient is postmenopausal. Benign stereotactic core biopsy of the left breast, 2009. Took estrogen for 1 year. Physical Findings: A clinical breast exam by your physician is recommended on an annual basis and results should be correlated with mammographic findings. MG Screening Mammo w CAD Bilateral CC, MLO, and XCCL view(s) were taken. Prior study comparison: January 30, 2017, bilateral MG screening mammo w CAD. January 29, 2016, bilateral MG 3d screening mammo w/cad. There are scattered fibroglandular densities. Stable benign calcifications. Focal asymmetry upper outer right breast 11.4cm from nipple. This finding is changed when compared with previous exams. ASSESSMENT: Incomplete: need additional imaging evaluation, BI-RAD 0 RECOMMENDATION: Special view mammogram of the right breast. If lesion persists on supplemental views, image directed ultrasound is recommended. [facility] will attempt to contact patient to return for supplemental views and ultrasound if indicated.
== END | disposition home or self-care (01) ==
LOC: RADMAMWWP 10:18
PROVIDERS: ATTEND Family Medicine
DX: Z12.31 Encounter for screening mammogram for malignant neoplasm of breast (principal)
CPT/HCPCS: 77067

== ENCOUNTER → 2019-02-21 | Outpatient (CLI) | payer MEDICARE, OTHER ==
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
== END | disposition home or self-care (01) ==
LOC: RADXRMAIN 11:07
PROVIDERS: ATTEND Family Medicine
DX: M19.012 Primary osteoarthritis, left shoulder (principal); M25.562 Pain in left knee; M79.631 Pain in right forearm

== ENCOUNTER → 2019-03-08 | Outpatient (CLI) | payer MEDICARE, OTHER ==
--- NOTE | 2019-03-09 09:10 | MM ---
Reason for exam: additional evaluation requested from abnormal screening. Last mammogram was performed 1 month ago. History: Patient is postmenopausal. Benign stereotactic core biopsy of the left breast, 2009. Took hormonal contraceptives beginning at age 16. Took estrogen for 1 year. Physical Findings: Nurse did not find any significant physical abnormalities on exam. MG Work Up Mamm w CAD RT Spot compression CC, spot compression MLO, and ML view(s) were taken of the right breast. Prior study comparison: February 18, 2019, bilateral MG screening mammo w CAD. January 30, 2017, bilateral MG screening mammo w CAD. There are scattered fibroglandular densities. Benign appearing calcifications in the right breast. Persistent 6m focal asymmetry 10-13cm from nipple changing with nipple position in the upper outer quadrant. These results were verbally communicated with the patient and result sheet given to the patient on 03/08/19. ASSESSMENT: Incomplete: need additional imaging evaluation, BI-RAD 0 RECOMMENDATION: Ultrasound of the right breast.
--- NOTE | 2019-03-09 09:13 | USB ---
Reason for exam: additional evaluation requested from abnormal screening. History: Patient is postmenopausal. Benign stereotactic core biopsy of the left breast, 2009. Took hormonal contraceptives beginning at age 16. Took estrogen for 1 year. US Breast Workup Limited RT Right limited breast ultrasound including focal area of concern, retroareolar and axilla demonstrates a 5 x 6 x 5mm oval, solid, calcified lesion at 11 o'clock, a 11 x 5 x 6mm cystic cluster at 12 o'clock and a 5 x 3 x 3mm cystic cluster at 12 o'clock. No sonographic correlate. These results were verbally communicated with the patient and result sheet given to the patient on 03/08/19. ASSESSMENT: Suspicious, BI-RAD 4 RECOMMENDATION: Stereotactic core biopsy of the right breast. Called Dr. Snell's office with mammographic findings and has scheduled an appointment for the patient for 04/08/19 at 10:[address] Trinidad. Biopsy schedule for 04/14/19 at 8:00. PRELIMINARY REPORT CALLED AND FAXED TO DR. TRINIDAD ON 03/09/19.
== END | disposition home or self-care (01) ==
LOC: RADMAMWWP 09:22
PROVIDERS: ATTEND Family Medicine
DX: R92.8 Other abnormal and inconclusive findings on diagnostic imaging of breast (principal)
CPT/HCPCS: 77065

== ENCOUNTER → 2019-04-06 | Outpatient (CLI) | payer MEDICARE, OTHER ==
[2019-04-06 11:18] LABS: Basophils % (A) 0 %; Eosinophils # (A) 0.1 k/uL (0-0.7); Eosinophils % (A) 2 %; HCT 38.9 % (34.0-46.0); HGB 12.1 gm/dL (11.4-16.0); Hypochromasia Slight; Lymphocytes # (A) 0.8 k/uL (1.0-4.8); Lymphocytes % (A) 18 %; MCH 28.6 pg (25.0-35.0); MCHC 31.1 g/dL (31.0-37.0); MCV 91.7 fL (80.0-100.0); Mean Platelet Volume 8.8; Monocytes # (A) 0.2 k/uL (0-1.0); Monocytes % (A) 4 %; Neutrophils # (A) 3.6 k/uL (1.3-7.7); Neutrophils % (A) 75 %; Platelet Count 116 k/uL (150-450); RBC 4.24 m/uL (3.80-5.40); RDW 15.7 % (11.5-15.5); WBC 4.8 k/uL (3.8-10.6)
[2019-04-06 11:29] LABS: Appearance,Urine Cloudy (Clear); Bacteria,Urine Rare /hpf; Bilirubin,Urine Negative (Negative); Blood,Urine Large (Negative); Color,Urine Yellow; Glucose,Urine (UA) Negative (Negative); Ketones,Urine Negative (Negative); Leukocyte Esterase,Urine Negative (Negative); Mucus,Urine Rare /hpf; Nitrite,Urine Negative (Negative); Protein,Urine Trace (Negative); RBC,Urine >182 /hpf (0-5); Specific Gravity,Urine 1.022 (1.001-1.035); Squamous Epithelial Cell,Urine 3 /hpf (0-4); Urobilinogen,Urine <2.0 mg/dL (<2.0); WBC,Urine 6 /hpf (0-5)
[2019-04-06 16:44] LABS: % Iron Saturation 17.63 (12.00-45.00); African American GFR (CKD) 68.9 (60.0-200.0); Albumin 4.2 g/dL (3.80-4.90); Albumin/Globulin Ratio 2.63 (1.60-3.17); Anion Gap 8.4 mmol/L (4.00-12.00); Calcium 9.5 mg/dL (8.7-10.3); Carbon Dioxide 26.6 mmol/L (21.6-31.8); Globulin 1.6 g/dL (1.6-3.3); Magnesium 1.8 mg/dL (1.5-2.4); Non-African American GFR(CKD) 59.5 (60.0-200.0); Phosphorus 3.3 mg/dL (2.4-5.1); Potassium 4.4 mmol/L (3.5-5.5); Total Bilirubin 0.8 mg/dL (0.3-1.2); Total Protein 5.8 g/dL (6.2-8.2)
[2019-04-06 16:52] LABS: Ferritin 55.6 ng/mL (10.0-291.0)
[2019-04-06 18:01] LABS: Urine Creatinine 144.2 mg/dL
== END | disposition home or self-care (01) ==
LOC: LABWHC1 10:34
PROVIDERS: ATTEND Nurse Practitioner Family
DX: N18.9 Chronic kidney disease, unspecified (principal); D63.1 Anemia in chronic kidney disease; N39.0 Urinary tract infection, site not specified; E55.9 Vitamin D deficiency, unspecified; R80.9 Proteinuria, unspecified; M10.9 Gout, unspecified
CPT/HCPCS: 36415; 80053; 81001; 82043; 82306; 82533; 82570; 82728; 83540; 83550; 83735; 83970; 84100; 84550; 85025

== ENCOUNTER → 2019-04-14 | Day surgery (SDC) | payer MEDICARE, OTHER ==
[2019-04-14 07:30] VITALS: RESP 16
[2019-04-14 09:06] VITALS: BP 119/72; PULSE 64; TEMP 98.3
--- NOTE | 2019-04-14 09:17 | MM ---
EXAMINATION TYPE: MG stereo VAD BX RT DATE OF EXAM: 04/14/2019 COMPARISON: 03/08/2019 right mammographic workup and ultrasound. CLINICAL HISTORY: 6 mm right upper outer quadrant focal asymmetry with no sonographic correlate for which stereotactic guided biopsy was recommended. TECHNIQUE: Stereotactic guided core biopsy of right breast. FINDINGS: The procedure of stereotactic guided core biopsy was explained to the patient. Benefits, alternatives, and risks were discussed. An informed consent was then obtained. Preprocedural timeout was performed. The shortness pathway for biopsy was chosen as lateral to medial however the finding was not visualized. Therefore likely CC from below approach was utilized. I performed the localization, then surgeon, Dr. Percy Dennis performed the remainder of the procedure. A vacuum assisted biopsy gun was used to obtain multiple core samples. The patient tolerated the procedure well without any immediate complication. The patient was kept in the radiology department for short stay after the procedure and then discharged home in stable condition. Targeted calcifications are identified in specimen mammogram. Post biopsy mammogram shows the clip to appear in satisfactory position relative to the targeted area of concern on the preprocedure images. IMPRESSION: SUCCESSFUL, UNCOMPLICATED STEREOTACTIC GUIDED CORE BIOPSY OF A 6 MM RIGHT UPPER- OUTER QUADRANT FOCAL ASYMMETRY, FULL PATHOLOGY RESULTS TO FOLLOW. Pathology Results: Benign RIGHT BREAST, STEREOTACTIC CORE BIOPSY: Benign breast with fibrocystic changes and prominent adipose tissue. Recommendation Follow up mammogram of the right breast in 6 months. ANGI
--- NOTE | 2019-04-14 13:01 | P.PCN ---
Date of Procedure: 04/14/19 Preoperative Diagnosis: Mammographic abnormality, nodule right breast Postoperative Diagnosis: Same Procedure(s) Performed: Right breast stereotactic core biopsy Anesthesia: local Surgeon: Magi Trinidad Estimated Blood Loss (ml): 0 Pathology: other (Breast tissue) Condition: stable Disposition: same day Indications for Procedure: Nodule noted on mammogram and right breast no sonographic correlate Operative Findings: Mammographic abnormality Description of Procedure: The patient is a 63-year-old white female who was noted on a routine mammogram to have an area of asymmetry/nodularity in the right breast. Ultrasound was performed and no sonographic cord blood was identified. She was recommended to undergo a sterile tactic core biopsy. Risks and benefits of the procedure were discussed with the patient and she wished to proceed. The patient was taken to the stereotactic core biopsy room. She was positioned on the stereotactic table. A formula mixer film was obtained. CC from below approach was utilized. The area of concern was identified. The area was targeted. The breast was prepped using Betadine. 20 mL of 1% lidocaine 10 of which had epinephrine were used to anesthetize the area of concern. A 19-gauge vacuum- assisted core rotating biopsy needle was driven to the correct coordinates. The needle was fired. Post fire films revealed the needle to be in the correct location. 12 core biopsies were obtained. A secure marked top at marker was placed. Radiograph of the specimen was not obtained as there were no microcalcifications. Following placement of the top Marker a radiograph revealed that this was in the correct location. The patient tolerated the procedure in stable condition. The specimens were sent to pathology. The patient will follow with Dr. Greer in 1 week.
== END ==
LOC: RADMAMWWP 06:53
PROVIDERS: ATTEND Surgery
DX: N60.11 Diffuse cystic mastopathy of right breast (principal); R92.8 Other abnormal and inconclusive findings on diagnostic imaging of breast
CPT/HCPCS: 88305; 19081; A4648; J2001

== ENCOUNTER → 2019-04-15 | Outpatient (CLI) | payer OTHER, MEDICARE ==
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
== END | disposition home or self-care (01) ==
LOC: RADCTMAIN 14:53
PROVIDERS: ATTEND Family Medicine
DX: S50.1 Contusion of forearm (principal)

== ENCOUNTER → 2019-05-03 | Outpatient (CLI) | payer MEDICARE, OTHER ==
--- NOTE | 2019-05-03 14:11 | NM ---
"EXAMINATION TYPE: NM stress lexiscan cardiolite DATE OF EXAM: 05/03/2019 COMPARISON: 10/29/2018 HISTORY: Chest pain TECHNIQUE: After the intravenous administration of 10.59 mCi Tc 99m Sestamibi - Cardiolite resting S PECT images acquired 50 minutes post injection. The patient received 0.4mg Lexiscan, 25.7 mCi Tc 99m Sestamibi - Stress images obtained [address] injection FINDINGS: Review of stress and rest SPECT images demonstrates persistent reduced uptake involving the apical an d apical inferior myocardium. Small area of reversibility not excluded involving the apex.. Gated an alysis shows reduced wall motion with an estimated left ventricular ejection fraction of 32 %. IMPRESSION: 1. Persistent reduced uptake involving the apical and apical inferior myocardium with reduced wall mo tion activity within ejection fraction of only 32%. Small area of stress-induced reversible ischemia involving the apex is not excluded correlate clinically. A [place] level critical message alert has been initiated for Vishal Snell MD via the [facility] 36 0 | Critical Results System on 05/03/2019 2:09 PM. This message alert has been sent to Vishal Snell MD via the preferences provided by the clinician for the receipt of Radiology Critical Findings. Mess age ID [id number]."
--- NOTE | 2019-05-04 11:06 | EST ---
EXERCISE STRESS AGE: 63 SEX: Female HT: 65" WT: 240 pounds PROTOCOL: Lexiscan Cardiolite STAGE: DURATION OF EXERCISE: HEART RATE REST: 77 BLOOD PRESSURE REST: 136/76 MAXIMUM HEART RATE ACHIEVED: 84 MAXIMUM BLOOD PRESSURE: 112/55 85% MPHR: 100% MPHR: METS: INDICATIONS: Abnormal EKG, fatigue. CLINICAL INFORMATION: The patient was given Lexiscan injection over a period of 10 seconds. The peak heart rate of 84 was achieved. Maximum blood pressure of 112/55 mmHg was noted. Resting EKG shows normal sinus rhythm with intraventricular conduction delay of left bundle branch block pattern was noted. No significant ST-segment change from the baseline was noted. The results of the nuclear study will follow. AYSE / JEREMYN: [id number] /
== END | disposition home or self-care (01) ==
LOC: RADNMMAIN 08:04
PROVIDERS: ATTEND Family Medicine
DX: R94.31 Abnormal electrocardiogram [ECG] [EKG] (principal)
CPT/HCPCS: 93017; 78452; A9500; J2785

== ENCOUNTER 2019-05-26 16:30 | Inpatient (IN) | payer MEDICARE, OTHER ==
[2019-05-26] MEDS ORDERED: ASPIRIN 81 MG PO STA (17:09)
[2019-05-26 17:19] LABS: Basophils % (A) 1 %; Eosinophils # (A) 0.2 k/uL (0-0.7); Eosinophils % (A) 3 %; HCT 39.8 % (34.0-46.0); Lymphocytes # (A) 1.1 k/uL (1.0-4.8); Lymphocytes % (A) 18 %; MCH 29.7 pg (25.0-35.0); MCHC 32.6 g/dL (31.0-37.0); MCV 91.3 fL (80.0-100.0); Mean Platelet Volume 8.4; Monocytes # (A) 0.3 k/uL (0-1.0); Monocytes % (A) 6 %; Neutrophils # (A) 4.3 k/uL (1.3-7.7); Neutrophils % (A) 71 %; Platelet Count 120 k/uL (150-450); RBC 4.36 m/uL (3.80-5.40); RDW 15.1 % (11.5-15.5); WBC 6.1 k/uL (3.8-10.6)
--- NOTE | 2019-05-26 17:27 | ED ---
Chest Pain HPI - General Chief Complaint: Chest Pain Stated Complaint: R/O COVID Time Seen by Provider: 05/26/19 16:42 Source: patient, EMS Mode of arrival: EMS - History of Present Illness Initial Comments: Patient is a 63-year-old female, with history of heart disease, asthma, diabetes, kidney disease, presenting to the emergency department for chest pain, shortness of breath 2 days. Patient was sent to the ER from urgent care. She states she had just flown back from [place] 2 days ago her symptoms started. She states she was feeling feverish, chills, nausea prior to returning from [place]. Patient states that him being on the plane her symptoms have worsened. She states her chest pain shortness breath and just not went away. She is not been having fevers, no vomiting. She does admit to nausea, diarrhea for the past 2 days. She does admit to generalized abdominal cramping or pressure, no severe abdominal pain. She has not been able to eat or drink very much. Patient also admits to generalized weakness and fatigue. She has not taken any Tylenol or Motrin today. She has no other complaints. Upon arrival to the ER, her vital signs are stable. - Related Data Home Medications Medication Instructions Recorded Confirmed Magnesium Oxide [Mag-Ox] 250 mg PO DAILY 05/06/14 04/21/19 Insulin Detemir (Levemir) [Levemir] 35 unit SQ HS 11/17/14 04/21/19 Atorvastatin [Lipitor] 20 mg PO HS 08/02/16 04/21/19 Cyanocobalamin [Vitamin B-12] 250 mcg PO DAILY 08/02/16 04/21/19 Aspirin EC [Ecotrin Low Dose] 81 mg PO DAILY 11/02/18 04/21/19 Fluticasone/Vilanterol [Breo 1 puff INHALATION RT-DAILY 11/02/18 04/21/19 Ellipta 100-25 Mcg Inhaler] Montelukast [Singulair] 10 mg PO HS 11/02/18 04/21/19 Pantoprazole [Protonix] 40 mg PO DAILY 11/02/18 04/21/19 Semaglutide [Ozempic] 0.25 mg SQ 11/02/18 04/21/19 Spironolactone [Aldactone] 12.5 mg PO DAILY 11/02/18 04/21/19 Albuterol Sulfate [Albuterol 2 puff PO RT-Q4H PRN 01/14/19 04/21/19 Sulfate Hfa] Furosemide [Lasix] 40 mg PO DAILY 01/14/19 04/21/19 HYDROcodone/APAP 7.5-325MG [[place] 1 tab PO Q4H PRN 01/14/19 04/21/19 7.5-325] Insulin Aspart [NovoLOG Flexpen] 13 units SQ AC-BRKFST 01/14/19 04/21/19 Insulin Aspart [NovoLOG Flexpen] 15 units SQ AC-BID 01/14/19 04/21/19 Insulin Aspart [NovoLOG Flexpen] See Protocol SQ AC-TID 01/14/19 04/21/19 Metoprolol Tartrate [Lopressor] 12.5 mg PO BID 01/14/19 04/21/19 Albuterol Nebulized [Ventolin 2.5 mg INHALATION RT-Q6H PRN 02/18/19 04/21/19 Nebulized] Previous Rx's Medication Instructions Recorded Docusate [Colace] 100 mg PO BID cap 11/06/18 Midodrine [ProAmatine] 5 mg PO AC-TID tab 11/06/18 Allergies Allergy/AdvReac Type Severity Reaction Status Date / Time No Known Allergies Allergy Verified 05/26/19 16:38 Review of Systems ROS Statement: Those systems with pertinent positive or pertinent negative responses have been documented in the HPI. ROS Other: All systems not noted in ROS Statement are negative. EKG Findings - EKG Comments: EKG Findings:: Ventricular rate 60, SD interval 158, QTc 478. Normal sinus rhythm with sinus arrhythmia. Left PVP. No acute ST segment changes. Similar to review his EKG on 02/18/2019. Past Medical History Past Medical History: Atrial Fibrillation, Asthma, Coronary Artery Disease (CAD), Chest Pain / Angina, Heart Failure, Diabetes Mellitus, Hyperlipidemia, Hypertension, Musculoskeletal Disorder, Osteoarthritis (OA), Pneumonia, Renal Disease, Sleep Apnea/CPAP/BIPAP Additional Past Medical History / Comment(s): Arrhythmia, Afib-Converted with ablation 05/2013, Cardiomyopathy,DDD, Diabetic Neuropathy, Edema, Scoliosis,Anemia, KIDNEY STONES. History of Any Multi-Drug Resistant Organisms: None Reported Past Surgical History: Ablation, AICD, Back Surgery, Cardiac Ablation, Section, Cholecystectomy, Heart Catheterization, Hysterectomy, Joint Replacement, Orthopedic Surgery, Pacemaker Additional Past Surgical History / Comment(s): Varicose Vein Stripping,Rt Knee scope, D & C, Colonoscopy, Lithotripsy, Removal of kidney stones,LT TOTAL KNEE REPLACEMENT, Major back surgery 11/13/2018 in [facility], "Fusion and stenosis taken care of as well as spurs removed". Past Anesthesia/Blood Transfusion Reactions: No Reported Reaction Additional Past Anesthesia/Blood Transfusion Reaction / Comment(s): HAS HAD NO PROBLEMS WITH PRIOR BLOOD TRANSFUSIONS Type of Cardiac Device: Permanent Pacemaker, AICD Device Placement Date:: 03/14/2011-Metronic LT CHEST Past Psychological History: Anxiety, Depression Smoking Status: Never smoker Past Alcohol Use History: None Reported Past Drug Use History: None Reported - Past Family History Father Family Medical History: Cancer Brother(s) Family Medical History: Cancer Sister(s) Family Medical History: Cancer Mother Family Medical History: Cancer General Exam - General Exam Comments Initial Comments: GENERAL: Well-appearing, well-nourished and in no acute distress. HEAD: Atraumatic, normocephalic. EYES: Pupils equal round and reactive to light, extraocular movements intact, sclera anicteric, conjunctiva are normal. ENT: TMs normal, nares patent, oropharynx clear without exudates. Moist mucous membranes. NECK: Normal range of motion, supple without lymphadenopathy or JVD. LUNGS: Breath sounds clear to auscultation bilaterally and equal. No wheezes rales or rhonchi. HEART: Regular rate and rhythm without murmurs, rubs or gallops. ABDOMEN: Soft, nontender, normoactive bowel sounds. No guarding, no rebound. No masses appreciated. : Deferred EXTREMITIES: Normal range of motion, no pitting or edema. No clubbing or cyanosis. NEUROLOGICAL: Cranial nerves II through XII grossly intact. Normal speech, normal gait. PSYCH: Normal mood, normal affect. SKIN: Warm, Dry, normal turgor, no rashes or lesions noted. Course Vital Signs 05/26/19 05/26/19 05/26/19 16:34 17:00 17:30 Temperature 97.4 F L Pulse Rate 68 66 65 Respiratory 16 Rate Blood Pressure 138/81 138/81 127/72 O2 Sat by Pulse 95 97 95 Oximetry 05/26/19 05/26/19 18:30 18:31 Temperature Pulse Rate 60 64 Respiratory 16 Rate Blood Pressure 133/74 114/61 O2 Sat by Pulse 95 99 Oximetry Chest Pain MDM - [facility] Patient is 63-year-old female presented with chest pain, shortness of breath 2 days. Patient recently returned from [place]. Vital signs are stable upon arrival. Lab work shows no leukocytosis. Kidney function is slightly elevated. D-dimer was 5.79. Troponin is normal. EKG shows no signs of ischemia. Urine is normal. CTA was obtained and shows no evidence of PE. Groundglass infiltrates consistent with nonspecific interstitial pneumonia. Patient was given aspirin, fluids. We will also start Rocephin and azithromycin for pneumonia. Patient will be admitted for chest pain rule out as well as pneumoni a. Patient is in agreement with this plan of care. Patient was accepted by Dr. Snell. Cardiac consult. Case discussed with Dr. Claire. Influenza test is pending at this time. Possible COVID testing if negative. Disposition Clinical Impression: Chest pain, Pneumonia, Weakness Disposition: ADMITTED IP TO THIS HOSP Condition: Stable Is patient prescribed a controlled substance at d/c from ED?: No Referrals: Vishal Snell MD [Primary Care Provider] - 1-2 days Decision Date: 05/26/19 Decision Time: 19:06
[2019-05-26 17:31] LABS: Albumin 4.1 g/dL (3.5-5.0); Calcium 9.7 mg/dL (8.4-10.2); Potassium 4.5 mmol/L (3.5-5.1); Total Protein 6.5 g/dL (6.3-8.2)
[2019-05-26 17:54] LABS: Prothrombin Time 10.4 sec (9.0-12.0)
--- NOTE | 2019-05-26 17:54 | XR ---
EXAMINATION TYPE: XR chest 2V DATE OF EXAM: 05/26/2019 COMPARISON: 02/18/2019 HISTORY: Chest pain TECHNIQUE: 2 views FINDINGS: Heart size is normal. There is increased density above the left pulmonary hilum. There is m ild thoracic dextroscoliosis. Costophrenic angles are clear. There is no heart failure. There is a le ft axillary pacemaker. IMPRESSION: There is increased density at the superior aspect left pulmonary hilum that appear appear s to relate to large left upper lobe pulmonary vein unchanged compared to CT scan of 02/18/2019. No e vidence of acute lung disease.
[2019-05-26 17:55] LABS: D-Dimer 5.79 mg/L FEU (<0.60); Partial Thromboplastin Time 21.8 sec (22.0-30.0)
[2019-05-26] MEDS ORDERED: ACETAMINOPHEN TAB 325 MG TAB PO STA ×2 (18:11→18:27)
[2019-05-26 18:31] LABS: Amorphous Sediment,Urine Rare /hpf; Appearance,Urine Cloudy (Clear); Bilirubin,Urine Negative (Negative); Blood,Urine Negative (Negative); Color,Urine Yellow; Glucose,Urine (UA) 1+ (Negative); Hyaline Casts,Urine 4 /lpf (0-2); Ketones,Urine Negative (Negative); Leukocyte Esterase,Urine Negative (Negative); Mucus,Urine Rare /hpf; Nitrite,Urine Negative (Negative); Protein,Urine Negative (Negative); RBC,Urine 1 /hpf (0-5); Specific Gravity,Urine 1.017 (1.001-1.035); Squamous Epithelial Cell,Urine 8 /hpf (0-4); Urobilinogen,Urine <2.0 mg/dL (<2.0); WBC,Urine 2 /hpf (0-5)
[2019-05-26] MEDS ORDERED: SODIUM CHLORIDE 0.9% 1,000 ML IV STA (18:38)
--- NOTE | 2019-05-26 18:44 | CT ---
EXAMINATION TYPE: CT chest angio for PE DATE OF EXAM: 05/26/2019 COMPARISON: 02/18/2019 HISTORY: PE suspected, elevated d-dimer. Pt c/o chest pain, SOB, diarrhea several days. Recent travel er from [place]. CT DLP: 721.10 mGycm Automated exposure control for dose reduction was used. CONTRAST: Performed with IV Contrast, patient injected with 100 mL of Isovue 370. There are 3-D post processed images. Ascending aorta measures 3.9 cm. Heart appears enlarged. There is coarse interstitial pulmonary infil trates in the mid and lower lung ramos. There is groundglass interstitial density. There is no peric ardial effusion. There is no pleural effusion. There is no evidence of a pulmonary mass. There is no mediastinal adenopathy. There are no hilar masses. There is some ankylotic change in the thoracic spine. There is no compression fracture. There is normal contrast opacification of the pulmonary arteries. There are no filling defects. There are large central pulmonary arteries. IMPRESSION: No evidence of pulmonary embolism. Large pulmonary arteries suggestive of pulmonary hypertension. Cardiomegaly. Groundglass pulmonary interstitial infiltrates consistent with nonspecific interstitial pneumonia. No pleural fluid seen to suggest heart failure. Borderline aneurysm of the ascending aorta.
[2019-05-26] MEDS ORDERED: AZITHROMYCIN 500 MG TAB PO STA (19:02)
[2019-05-26] MEDS: ACETAMINOPHEN TAB 325 MG TAB PO PRN (22:38)
[2019-05-27] MEDS: ACETAMINOPHEN TAB 325 MG TAB PO PRN ×3 (03:47→15:35)
[2019-05-27] MEDS: NITROGLYCERIN SL TABS 0.4 MG TAB SUBLINGUAL PRN ×2 (04:44→04:51)
[2019-05-27] MEDS ORDERED: HEPARIN SODIUM,PORCINE 5,000 UNIT/ML 1 ML VIAL IV ONE (04:59)
[2019-05-27] MEDS ORDERED: HEPARIN SODIUM,PORCINE 5,000 UNIT/ML 1 ML VIAL IV PRN (04:59)
[2019-05-27] MEDS ORDERED: HEPARIN SOD,PORK IN 0.45% NACL 25,000 UNIT in 0.45% NACL 1 250ML.BAG IV SCH (05:00)
[2019-05-27 05:58] LABS: Glucose,Whole Blood 152 mg/dL (75-99)
[2019-05-27 06:46] LABS: Basophils % (A) 0 %; Eosinophils # (A) 0.2 k/uL (0-0.7); Eosinophils % (A) 3 %; HCT 36.7 % (34.0-46.0); Lymphocytes # (A) 0.5 k/uL (1.0-4.8); Lymphocytes % (A) 9 %; MCH 29.8 pg (25.0-35.0); MCHC 32.6 g/dL (31.0-37.0); MCV 91.3 fL (80.0-100.0); Mean Platelet Volume 8.8; Monocytes # (A) 0.3 k/uL (0-1.0); Monocytes % (A) 6 %; Neutrophils # (A) 4.8 k/uL (1.3-7.7); Neutrophils % (A) 81 %; Platelet Count 104 k/uL (150-450); RBC 4.02 m/uL (3.80-5.40); RDW 15.1 % (11.5-15.5); WBC 5.9 k/uL (3.8-10.6)
[2019-05-27 06:50] LABS: INR 1.1 (<1.2); Partial Thromboplastin Time 30.1 sec (22.0-30.0); Prothrombin Time 11.1 sec (9.0-12.0)
[2019-05-27 07:00] LABS: Cholesterol 119 mg/dL (<200); HDL Cholesterol 77 mg/dL (40-60); LDL Cholesterol,Calculated 19 mg/dL (0-99); Triglycerides 115 mg/dL (<150)
[2019-05-27] MEDS: ASPIRIN 325 MG TAB PO SCH (08:46)
--- NOTE | 2019-05-27 10:37 | CONS ---
CONSULTATION Yani is a 63-year-old lady who has a history of heart failure, asthma, diabetes, renal insufficiency, who was in [place] until 2 days ago. Came here, complaints of feeling feverish, chills, nausea, and her symptoms have worsened since she got here and she has shortness of breath and had chest discomfort too. She also has diarrhea for the last 2 days and has abdominal cramping. Due to this, she comes in. Her EKG shows sinus rhythm with left bundle branch block and nonspecific ST-T wave changes. She had cardiac enzymes that are negative. Her D-dimer was elevated and she went on to have a CT scan of the chest that was negative for pulmonary embolism. She had cardiomegaly and had interstitial pneumonia. The patient had a stress test done at the beginning of the month that showed fixed apical defect. Patient had a cardiac catheterization following an abnormal stress test in October of [address] CELINA Ling that showed that she did not have any significant CAD. Her current chest pain does not seem cardiac in origin. She does not require any further cardiac workup. The clinical presentation is more suggestive of infection and her chest discomfort could be from cough and fever. I am going to stop the IV heparin at this time. No other cardiac workup at this time. PAST MEDICAL HISTORY: Significant for cardiomyopathy, COPD, hypertension, diabetes. CURRENT MEDICATIONS: Include Aldactone, Protonix, Singulair, Lopressor, Levemir, Lasix, Colace, B12, aspirin, Lipitor, and albuterol. There are no known drug allergies. FAMILY HISTORY: Negative for premature coronary artery disease. SOCIAL HISTORY: Significant for travel. There is no recent history of drug abuse. Her exam shows that she is afebrile. Heart rate is 90 beats per minute. Blood pressure is 144/67, O2 sat is 97%. LABS: Show a hemoglobin of 12, platelet count is 104, tropes are negative. ASSESSMENT: Febrile illness, rule out COVID, precordial chest pain, atypical, probably musculoskeletal. Could be related to underlying lung infection. Patient had normal coronaries and a cardiac cath last year. Does not require any further cardiac workup. We will see the patient on an as-needed basis. MMODL / IJN: [id number] /
--- NOTE | 2019-05-27 11:00 | ECHOF ---
Referral Reason:chest pain MEASUREMENTS -------- HEIGHT: 165.1 cm WEIGHT: 122.5 kg BP: RVIDd: 2.7 cm (< 3.3) IVSd: 1.2 cm (0.6 - 1.1) LVIDd: 5.5 cm (3.9 - 5.3) LVPWd: 1.2 cm (0.6 - 1.1) IVSs: 1.5 cm LVIDs: 5.0 cm LVPWs: 1.3 cm Ao Diam: 4.0 cm (2.0 - 3.7) AV Cusp: 2.7 cm (1.5 - 2.6) LA Diam: 4.3 cm (2.7 - 3.8) MV EXCURSION: 18.547 mm (> 18.000) MV EF SLOPE: 57 mm/s (70 - 150) EPSS: 2.2 cm MV E Kareem: 0.57 m/s MV DecT: 140 ms MV A Kareem: 0.78 m/s MV E/A Ratio: 0.73 RAP: 5.00 mmHg RVSP: 16.53 mmHg FINDINGS -------- Sinus rhythm. Pacemaker This was a technically difficult study with suboptimal views. The left ventricle is mildly dilated. There is mild concentric left ventricular hypertrophy. Ther e is severe global hypokinesis of LV . Overall left ventricular systolic function is severely impai red with, an EF between 20 - 25 %. The right ventricle is normal in size. The left atrium is mildly dilated. The right atrial size is normal. Lumason used The aortic valve is trileaflet and appears structurally normal. The mitral valve is normal. Mild mitral regurgitation is present. The tricuspid valve appears structurally normal. Mild tricuspid regurgitation present. Right vent ricular systolic pressure is normal at < 35 mmHg. There is no pulmonic regurgitation present. 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 IVC Not well visulized. There is a trivial pericardial effusion present. CONCLUSIONS -------- 1. Sinus rhythm. 2. Pacemaker 3. This was a technically difficult study with suboptimal views. 4. The left ventricle is mildly dilated. 5. There is mild concentric left ventricular hypertrophy. 6. There is severe global hypokinesis of LV . 7. Overall left ventricular systolic function is severely impaired with, an EF between 20 - 25 %. 8. The right ventricle is normal in size. 9. The left atrium is mildly dilated. 10. The right atrial size is normal. 11. Lumason used 12. The aortic valve is trileaflet and appears structurally normal. 13. The mitral valve is normal. 14. Mild mitral regurgitation is present. 15. The tricuspid valve appears structurally normal. 16. Mild tricuspid regurgitation present. 17. Right ventricular systolic pressure is normal at < 35 mmHg. 18. There is no pulmonic regurgitation present. 19. 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 20. IVC Not well visulized. 21. There is a trivial pericardial effusion present. ASSISTANT INFANT TODDLER TEACHER: Samantha Enriquez RDCS
[2019-05-27 12:10] LABS: Glucose,Whole Blood 208 mg/dL (75-99)
[2019-05-27] MEDS ORDERED: ALBUTEROL NEBULIZED 2.5 MG/3 ML INHALATION PRN (13:17)
[2019-05-27] MEDS ORDERED: MIDODRINE 5 MG TAB PO PRN (13:17)
--- NOTE | 2019-05-27 14:04 | HP ---
HISTORY AND PHYSICAL A 63-year-old white female, history of heart failure, asthma, diabetes, renal insufficiency, is traveling to [place] and just came back. started to have fever, chills, nausea, and shortness of breath. She was admitted for shortness of breath and rule out COVID and possibly CHF versus pneumonia. EKG shows sinus rhythm, left bundle branch block. Cardiac enzymes are negative. D- dimer was elevated. CT of the chest was negative for pulmonary embolism. She has interstitial pneumonia on her CAT scan as well as cardiomegaly. Stress test earlier this month showed fixed apical defect. Cardiac catheterization last October which was negative. Chest pain is most likely musculoskeletal from cough and fever, shortness of breath and possible pneumonia. PAST MEDICAL HISTORY: Cardiomyopathy, COPD, hypertension, insulin-dependent diabetes mellitus, history of ureteral stones, lumbar disk disease, neuropathy, insulin-dependent diabetes mellitus. MEDICINES: Aldactone, Protonix, Singulair, Lopressor, Levemir, Lasix, Colace, B12, aspirin, Lipitor, albuterol. ALLERGIES: No known drug allergies. FAMILY HISTORY: Negative for premature coronary artery disease. SOCIAL HISTORY: Significant for travel. No drug use. LABS: Hemoglobin is 12, platelet count 104. Troponins are negative. CARDIOVASCULAR: S1, S2. LUNGS: Scattered rhonchi and wheeze. ENDOCRINE: BMI is over 40. PSYCH: Fair mood and affect. NEUROLOGIC: Alert and oriented x3. OPHTHALMOLOGIC: Pupils equal, round, reactive to light and accommodation. GI: Distended, obesity. Soft, nontender. HEMATOLOGIC: 2 to 3+ pedal edema. ASSESSMENT: Acute febrile illness, rule out COVID, precordial chest pain, atypical musculoskeletal, interstitial lung disease. Normal atypical chest pain. Cardiology, Pulmonary consult. Treat with and antibiotics. COVID test is pending. Accu-Chek protocol. Continue with Rocephin antibiotics at this time. MMODL / IJN: [id number] /
[2019-05-27] MEDS ORDERED: ERGOCALCIFEROL 50,000 UNIT CAP PO SCH (15:00)
[2019-05-27] MEDS ORDERED: IPRATROPIUM-ALBUTEROL 3 ML NEB INHALATION PRN (15:00)
[2019-05-27] MEDS ORDERED: IPRATROPIUM-ALBUTEROL 3 ML NEB INHALATION SCH (16:00)
[2019-05-27 16:36] LABS: Glucose,Whole Blood 180 mg/dL (75-99)
[2019-05-27] MEDS ORDERED: ALBUTEROL INHALER 60 PUFF/8 GM INHALER (BULK) INHALATION PRN (16:51)
[2019-05-27] MEDS: ALBUTEROL INHALER 60 PUFF/8 GM INHALER (BULK) INHALATION SCH ×2 (17:10→19:11)
[2019-05-27] MEDS: INSULIN ASPART (NovoLOG) 100 UNIT/ML VIAL SQ SCH ×3 (17:16→20:53)
[2019-05-27] MEDS: HYDROcodone/APAP 7.5-325MG 1 EACH TAB PO PRN (19:59)
[2019-05-27] MEDS: METOPROLOL TARTRATE 25 MG TAB PO SCH (20:00)
[2019-05-27] MEDS: DOCUSATE 100 MG CAP PO SCH (20:00)
[2019-05-27] MEDS: MONTELUKAST 10 MG TAB PO SCH (20:00)
[2019-05-27] MEDS: ATORVASTATIN 40 MG TAB PO SCH (20:00)
[2019-05-27 20:47] LABS: Glucose,Whole Blood 159 mg/dL (75-99)
[2019-05-27] MEDS: INSULIN DETEMIR (LEVEMIR) 100 UNIT/ML SYR SQ SCH (20:54)
[2019-05-28] MEDS: HYDROcodone/APAP 7.5-325MG 1 EACH TAB PO PRN ×5 (00:56→22:35)
[2019-05-28 06:02] LABS: Glucose,Whole Blood 191 mg/dL (75-99)
[2019-05-28] MEDS: INSULIN ASPART (NovoLOG) 100 UNIT/ML VIAL SQ SCH ×7 (06:50→22:27)
[2019-05-28 06:56] LABS: Basophils % (A) 0 %; Eosinophils # (A) 0.2 k/uL (0-0.7); Eosinophils % (A) 5 %; HCT 36.4 % (34.0-46.0); HGB 11.8 gm/dL (11.4-16.0); Lymphocytes # (A) 0.8 k/uL (1.0-4.8); Lymphocytes % (A) 18 %; MCH 29.9 pg (25.0-35.0); MCHC 32.5 g/dL (31.0-37.0); MCV 92.1 fL (80.0-100.0); Mean Platelet Volume 8.8; Monocytes # (A) 0.3 k/uL (0-1.0); Monocytes % (A) 6 %; Neutrophils % (A) 68 %; Platelet Count 102 k/uL (150-450); RBC 3.96 m/uL (3.80-5.40); RDW 15.2 % (11.5-15.5); WBC 4.3 k/uL (3.8-10.6)
[2019-05-28] MEDS: ALBUTEROL INHALER 60 PUFF/8 GM INHALER (BULK) INHALATION SCH ×4 (08:09→20:42)
[2019-05-28] MEDS: ASPIRIN 81 MG PO SCH (08:31)
[2019-05-28] MEDS: ASPIRIN 325 MG TAB PO SCH (08:32)
[2019-05-28] MEDS: SPIRONOLACTONE 25 MG TAB PO SCH (08:32)
[2019-05-28] MEDS: MAGNESIUM OXIDE 400 MG TAB PO SCH (08:33)
[2019-05-28] MEDS: CYANOCOBALAMIN 500 MCG TAB PO SCH (08:33)
[2019-05-28] MEDS: FUROSEMIDE 20 MG TAB PO SCH (08:33)
[2019-05-28] MEDS: METOPROLOL TARTRATE 25 MG TAB PO SCH ×2 (08:33→22:27)
[2019-05-28] MEDS: DOCUSATE 100 MG CAP PO SCH ×2 (08:33→22:27)
[2019-05-28] MEDS: PANTOPRAZOLE 40 MG TABLET PO SCH (08:33)
[2019-05-28] MEDS: AZITHROMYCIN 500 MG in SODIUM CHLORIDE 0.9% 250 ML IVPB SCH (08:41)
[2019-05-28] MEDS: FLUTICASONE 110 MCG INHALER INHALATION SCH ×2 (09:58→16:14)
[2019-05-28 11:48] LABS: Glucose,Whole Blood 139 mg/dL (75-99)
[2019-05-28 13:00] LABS: Hemoglobin A1C 9.2 % (4.0-6.0)
[2019-05-28 16:57] LABS: Glucose,Whole Blood 196 mg/dL (75-99)
[2019-05-28 20:24] LABS: Glucose,Whole Blood 163 mg/dL (75-99)
--- NOTE | 2019-05-28 22:17 | PN ---
PROGRESS NOTE 63-year-old white female with pneumonia, interstitial pneumonia bilaterally, atypical chest pain. Still has some diarrhea. C diff negative. Breathing is about the same as yesterday. Oxygen level is low 90s on room air. Cardiovascular S1, S2. Lungs scattered rhonchi and wheeze. HEMATOLOGY: Negative Homans. PSYCH: Fair mood and affect. ASSESSMENT: 1. Interstitial bilateral pneumonia. 2. Atypical chest pain. 3. Asthma. 4. Chronic obstructive pulmonary disease exacerbation. 5. Insulin-dependent diabetes mellitus. 6. Atrial fibrillation. 7. Rapid ventricular response. Continue current treatment. Continue current treatment with IV Rocephin and azithromycin. Covid test is pending. Continue with updraft treatments. Accu-Chek protocol. Rehydration. MMODL / IJN: [id number] /
[2019-05-28] MEDS: MONTELUKAST 10 MG TAB PO SCH (22:27)
[2019-05-28] MEDS: INSULIN DETEMIR (LEVEMIR) 100 UNIT/ML SYR SQ SCH (22:27)
[2019-05-28] MEDS: ATORVASTATIN 40 MG TAB PO SCH (22:27)
[2019-05-29 06:19] LABS: Glucose,Whole Blood 238 mg/dL (75-99)
[2019-05-29] MEDS: HYDROcodone/APAP 7.5-325MG 1 EACH TAB PO PRN ×4 (06:43→22:32)
[2019-05-29] MEDS: INSULIN ASPART (NovoLOG) 100 UNIT/ML VIAL SQ SCH ×7 (06:44→22:05)
[2019-05-29 07:08] LABS: Basophils % (A) 0 %; Eosinophils # (A) 0.2 k/uL (0-0.7); Eosinophils % (A) 4 %; HCT 37.4 % (34.0-46.0); HGB 11.9 gm/dL (11.4-16.0); Lymphocytes # (A) 1.1 k/uL (1.0-4.8); Lymphocytes % (A) 23 %; MCH 29.4 pg (25.0-35.0); MCHC 31.8 g/dL (31.0-37.0); MCV 92.5 fL (80.0-100.0); Mean Platelet Volume 8.4; Monocytes # (A) 0.3 k/uL (0-1.0); Monocytes % (A) 7 %; Neutrophils # (A) 3.1 k/uL (1.3-7.7); Neutrophils % (A) 64 %; Platelet Count 102 k/uL (150-450); RBC 4.05 m/uL (3.80-5.40); RDW 15.2 % (11.5-15.5); WBC 4.9 k/uL (3.8-10.6)
[2019-05-29 07:21] LABS: Albumin 3.3 g/dL (3.5-5.0); Calcium 8.9 mg/dL (8.4-10.2); Potassium 4.4 mmol/L (3.5-5.1); Total Bilirubin 0.6 mg/dL (0.2-1.3); Total Protein 5.7 g/dL (6.3-8.2)
[2019-05-29] MEDS: FLUTICASONE 110 MCG INHALER INHALATION SCH ×2 (07:57→12:18)
[2019-05-29] MEDS: SPIRONOLACTONE 25 MG TAB PO SCH (08:00)
[2019-05-29] MEDS: MAGNESIUM OXIDE 400 MG TAB PO SCH (08:00)
[2019-05-29] MEDS: PANTOPRAZOLE 40 MG TABLET PO SCH (08:00)
[2019-05-29] MEDS: ASPIRIN 81 MG PO SCH (08:00)
[2019-05-29] MEDS: AZITHROMYCIN 500 MG in SODIUM CHLORIDE 0.9% 250 ML IVPB SCH (08:00)
[2019-05-29] MEDS: ASPIRIN 325 MG TAB PO SCH (08:00)
[2019-05-29] MEDS: METOPROLOL TARTRATE 25 MG TAB PO SCH ×2 (08:01→21:34)
[2019-05-29] MEDS: CYANOCOBALAMIN 500 MCG TAB PO SCH (08:01)
[2019-05-29] MEDS: FUROSEMIDE 20 MG TAB PO SCH (08:01)
[2019-05-29] MEDS: DOCUSATE 100 MG CAP PO SCH ×2 (08:03→21:34)
[2019-05-29] MEDS: ALBUTEROL INHALER 60 PUFF/8 GM INHALER (BULK) INHALATION SCH ×4 (08:35→22:34)
[2019-05-29 12:24] LABS: Glucose,Whole Blood 131 mg/dL (75-99)
[2019-05-29 16:29] LABS: Glucose,Whole Blood 144 mg/dL (75-99)
--- NOTE | 2019-05-29 18:38 | PN ---
PROGRESS NOTE 63-year-old white female admitted with interstitial pneumonia bilaterally. States she is still having difficulty breathing, having diarrhea. Denies any recent drug abuse. Hemoglobin stable, platelets stable. Ruling out Covid which was negative. Treating her for pneumonia. 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 Yang for pneumonia. Continue with current treatment. Check stool cultures again. MMODL / IJN: [id number] /
[2019-05-29 21:09] LABS: Glucose,Whole Blood 211 mg/dL (75-99)
[2019-05-29] MEDS: MONTELUKAST 10 MG TAB PO SCH (21:34)
[2019-05-29] MEDS: ATORVASTATIN 40 MG TAB PO SCH (21:34)
[2019-05-29] MEDS: INSULIN DETEMIR (LEVEMIR) 100 UNIT/ML SYR SQ SCH (22:05)
[2019-05-30] MEDS: HYDROcodone/APAP 7.5-325MG 1 EACH TAB PO PRN ×4 (04:14→18:37)
[2019-05-30 06:45] LABS: Glucose,Whole Blood 184 mg/dL (75-99)
[2019-05-30] MEDS: IPRATROPIUM-ALBUTEROL 3 ML NEB INHALATION SCH ×4 (07:07→20:18)
[2019-05-30] MEDS: FLUTICASONE 110 MCG INHALER INHALATION SCH ×3 (07:11→20:18)
[2019-05-30] MEDS: INSULIN ASPART (NovoLOG) 100 UNIT/ML VIAL SQ SCH ×7 (08:12→21:26)
[2019-05-30] MEDS: PANTOPRAZOLE 40 MG TABLET PO SCH (08:14)
[2019-05-30] MEDS: ASPIRIN 325 MG TAB PO SCH (08:14)
[2019-05-30] MEDS: FUROSEMIDE 20 MG TAB PO SCH (08:14)
[2019-05-30] MEDS: ASPIRIN 81 MG PO SCH (08:14)
[2019-05-30] MEDS: METOPROLOL TARTRATE 25 MG TAB PO SCH ×2 (08:14→21:25)
[2019-05-30] MEDS: MAGNESIUM OXIDE 400 MG TAB PO SCH (08:14)
[2019-05-30] MEDS: DOCUSATE 100 MG CAP PO SCH ×2 (08:15→21:25)
[2019-05-30] MEDS: CYANOCOBALAMIN 500 MCG TAB PO SCH (09:00)
[2019-05-30] MEDS: SPIRONOLACTONE 25 MG TAB PO SCH (09:00)
[2019-05-30] MEDS: AZITHROMYCIN 500 MG in SODIUM CHLORIDE 0.9% 250 ML IVPB SCH (10:14)
--- NOTE | 2019-05-30 10:55 | P.CNPUL ---
History of Present Illness Consult date: 05/30/19 Reason for consult: dyspnea, cough, chest pain, asthma, COPD Chief complaint: Shortness of breath and cough History of present illness: This is a 63-year-old female who was seen evaluated examined on fourth floor patient has a history of chronic persistent asthma of mild to moderate severity, patient also has a history of hypertension hypertensive cardiovascular disease and renal calculi has been morbidly obese, patient has been doing well awake ago, was in [place], patient was an Route from [place] to [place] a lot of turbulence happen the flight after which she started feeling sick in terms of breathing difficulty chest tightness and pain shortness of breath presented into the hospital she was initially evaluated for covert 19 infection has been ruled out with negative testing, her chest x-ray shows left-sided infiltrate, computed tomography scan of the chest revealed no pulmonary embolism large pulmonary vasculature likely cystoscopy pulmonary hypertension some infiltrate prominently interstitial on the left lower field and mid field, and likely pneumonia, her influenza A and B were negative, only she is on room air with oxygen saturation 97%, hemodynamically stable, respiratory status improved significantly, the echocardiogram revealed presence of ejection fraction only 20% with global hypokinesia Review of Systems All systems: negative Past Medical History Past Medical History: Atrial Fibrillation, Asthma, Coronary Artery Disease (CAD), Chest Pain / Angina, Heart Failure, Diabetes Mellitus, Hyperlipidemia, Hy pertension, Musculoskeletal Disorder, Osteoarthritis (OA), Pneumonia, Renal Disease, Sleep Apnea/CPAP/BIPAP Additional Past Medical History / Comment(s): Arrhythmia, Afib-Converted with ablation 05/2013, Cardiomyopathy,DDD, Diabetic Neuropathy, Edema, Scoliosis,Anemia, KIDNEY STONES. History of Any Multi-Drug Resistant Organisms: None Reported Past Surgical History: Ablation, AICD, Back Surgery, Cardiac Ablation, Section, Cholecystectomy, Heart Catheterization, Hysterectomy, Joint Replacement, Orthopedic Surgery, Pacemaker Additional Past Surgical History / Comment(s): Varicose Vein Stripping,Rt Knee scope, D & C, Colonoscopy, Lithotripsy, Removal of kidney stones,LT TOTAL KNEE REPLACEMENT, Major back surgery 11/13/[address] [facility], "Fusion and stenosis taken care of as well as spurs removed". Past Anesthesia/Blood Transfusion Reactions: No Reported Reaction Additional Past Anesthesia/Blood Transfusion Reaction / Comment(s): HAS HAD NO PROBLEMS WITH PRIOR BLOOD TRANSFUSIONS Type of Cardiac Device: Permanent Pacemaker, AICD Device Placement Date:: 03/14/2011-Metronic LT CHEST Past Psychological History: Anxiety, Depression Additional Psychological History / Comment(s): . She is on disability. She has no experience. She has no travel history. She is a lifelong nonsmoker. No history of recreational drug use. No history of alcohol use. No animals in the home at this time. Smoking Status: Never smoker Past Alcohol Use History: None Reported Past Drug Use History: None Reported - Past Family History Father Family Medical History: Cancer Brother(s) Family Medical History: Cancer Sister(s) Family Medical History: Cancer Mother Family Medical History: Cancer Medications and Allergies Home Medications Medication Instructions Recorded Confirmed Type Magnesium Oxide [Mag-Ox] 250 mg PO DAILY 05/06/14 05/26/19 History Insulin Detemir (Levemir) [Levemir] 35 unit SQ HS 11/17/14 05/26/19 History Cyanocobalamin [Vitamin B-12] 250 mcg PO DAILY 08/02/16 05/26/19 History Aspirin EC [Ecotrin Low Dose] 81 mg PO DAILY 11/02/18 05/26/19 History Fluticasone/Vilanterol [Breo 1 puff INHALATION RT-DAILY 11/02/18 05/26/19 History Ellipta 100-25 Mcg Inhaler] Montelukast [Singulair] 10 mg PO HS 11/02/18 05/26/19 History Pantoprazole [Protonix] 40 mg PO DAILY 11/02/18 05/26/19 History Semaglutide [Ozempic] 0.25 mg SQ 11/02/18 05/26/19 History Spironolactone [Aldactone] 12.5 mg PO DAILY 11/02/18 05/26/19 History Docusate [Colace] 100 mg PO BID cap 11/06/18 05/26/19 Rx Albuterol Sulfate [Albuterol 2 puff PO RT-Q4H PRN 01/14/19 05/26/19 History Sulfate Hfa] Furosemide [Lasix] 20 mg PO DAILY 01/14/19 05/26/19 History HYDROcodone/APAP 7.5-325MG [[place] 1 tab PO Q4H PRN 01/14/19 05/26/19 History 7.5-325] Insulin Aspart [NovoLOG Flexpen] 13 units SQ AC-BRKFST 01/14/19 05/26/19 History Insulin Aspart [NovoLOG Flexpen] 15 units SQ AC-BID 01/14/19 05/26/19 History Insulin Aspart [NovoLOG Flexpen] See Protocol SQ AC-TID 01/14/19 05/26/19 History Metoprolol Tartrate [Lopressor] 25 mg PO BID 01/14/19 05/26/19 History Albuterol Nebulized [Ventolin 2.5 mg INHALATION RT-Q6H PRN 02/18/19 05/26/19 History Nebulized] Atorvastatin [Lipitor] 40 mg PO HS 05/26/19 05/26/19 History Beclomethasone Dip 80 Mcg/Puff 2 puff INHALATION RT-BID 05/26/19 05/26/19 History [Qvar 80 mcg] Ergocalciferol [Vitamin D2] 50,000 unit PO Q30D 05/26/19 05/26/19 History Iron 25mg 25 mg PO NORRIS 05/26/19 05/26/19 History Midodrine [ProAmatine] 5 mg PO AC-TID PRN 05/26/19 05/26/19 History Allergies Allergy/AdvReac Type Severity Reaction Status Date / Time No Known Allergies Allergy Verified 05/26/19 19:17 Physical Exam Vitals: Vital Signs Temp Pulse Pulse Resp BP Pulse Ox 05/30/19 08:18 64 05/30/19 07:22 60 05/30/19 07:12 64 05/30/19 07:00 97.8 F 55 L 16 111/68 97 05/30/19 01:49 97.8 F 65 14 155/83 97 05/29/19 19:43 97.9 F 60 16 124/69 96 05/29/19 16:00 76 05/29/19 15:00 97.9 F 72 18 118/74 95 Intake and Output 05/29/19 05/30/19 05/30/19 22:59 06:59 14:59 Intake Total 240 118 Output Total 1000 Balance 240 -1000 118 Intake: Oral 240 118 Output: Urine 1000 Other: Voiding Method Toilet # Voids 2 - Constitutional General appearance: disheveled, morbidly obese - EENT Eyes: EOMI, PERRLA ENT: normal oropharynx Ears: bilateral: normal - Neck Neck: normal ROM Carotids: bilateral: upstroke normal Thyroid: bilateral: normal size - Respiratory Respiratory: left: rales (Predominantly Rales are present left side and lower lung field), negative: CTA - Cardiovascular Rhythm: regular Heart sounds: normal: S1, S2 - Gastrointestinal General gastrointestinal: normal bowel sounds, soft - Neurologic Neurologic: CNII-XII intact - Musculoskeletal Musculoskeletal: gait normal, generalized weakness, strength equal bilaterally - Psychiatric Psychiatric: A&O x's 3, appropriate affect, intact judgment & insight Results - Laboratory Findings CBC and BMP: 05/29/19 06:14 05/29/19 06:14 PT/INR, D-dimer PT 11.1 sec (9.0-12.0) 05/27/19 05:47 INR 1.1 (<1.2) 05/27/19 05:47 D-Dimer 5.79 mg/L FEU (<0.60) H 05/26/19 17:23 Abnormal lab findings: Abnormal Labs 05/26/19 05/26/19 05/26/19 17:00 17:00 17:23 Plt Count 120 L Lymphocytes # APTT 21.8 L D-Dimer 5.79 H Chloride Carbon Dioxide 31 H BUN 31 H Creatinine 1.25 H Glucose 211 H POC Glucose (mg/dL) Hemoglobin A1c Alkaline Phosphatase 129 H Total Protein Albumin HDL Cholesterol Urine Appearance Urine Glucose (UA) Ur Squamous Epith Cells Amorphous Sediment Hyaline Casts Urine Mucus 05/26/19 05/27/19 05/27/19 18:06 05:47 05:47 Plt Count 104 L Lymphocytes # 0.5 L APTT D-Dimer Chloride Carbon Dioxide BUN Creatinine Glucose POC Glucose (mg/dL) Hemoglobin A1c Alkaline Phosphatase Total Protein Albumin HDL Cholesterol 77 H Urine Appearance Cloudy H Urine Glucose (UA) 1+ H Ur Squamous Epith Cells 8 H Amorphous Sediment Rare H Hyaline Casts 4 H Urine Mucus Rare H 05/27/19 05/27/19 05/27/19 05:47 05:56 12:06 Plt Count Lymphocytes # APTT 30.1 H D-Dimer Chloride Carbon Dioxide BUN Creatinine Glucose POC Glucose (mg/dL) 152 H 208 H Hemoglobin A1c Alkaline Phosphatase Total Protein Albumin HDL Cholesterol Urine Appearance Urine Glucose (UA) Ur Squamous Epith Cells Amorphous Sediment Hyaline Casts Urine Mucus 0305/27/19 05/28/19 16:35 20:46 06:01 Plt Count Lymphocytes # APTT D-Dimer Chloride Carbon Dioxide BUN Creatinine Glucose POC Glucose (mg/dL) 180 H 159 H 191 H Hemoglobin A1c Alkaline Phosphatase Total Protein Albumin HDL Cholesterol Urine Appearance Urine Glucose (UA) Ur Squamous Epith Cells Amorphous Sediment Hyaline Casts Urine Mucus 05/28/19 05/28/19 05/28/19 06:23 06:23 06:23 Plt Count 102 L Lymphocytes # 0.8 L APTT D-Dimer Chloride 109 H Carbon Dioxide BUN 24 H Creatinine 1.09 H Glucose 173 H POC Glucose (mg/dL) Hemoglobin A1c 9.2 H Alkaline Phosphatase Total Protein Albumin HDL Cholesterol Urine Appearance Urine Glucose (UA) Ur Squamous Epith Cells Amorphous Sediment Hyaline Casts Urine Mucus 05/28/19 05/28/19 05/28/19 11:46 16:55 20:16 Plt Count Lymphocytes # APTT D-Dimer Chloride Carbon Dioxide BUN Creatinine Glucose POC Glucose (mg/dL) 139 H 196 H 163 H Hemoglobin A1c Alkaline Phosphatase Total Protein Albumin HDL Cholesterol Urine Appearance Urine Glucose (UA) Ur Squamous Epith Cells Amorphous Sediment Hyaline Casts Urine Mucus 05/29/19 05/29/19 05/29/19 06:14 06:14 06:17 Plt Count 102 L Lymphocytes # APTT D-Dimer Chloride Carbon Dioxide BUN 22 H Creatinine 1.27 H Glucose 205 H POC Glucose (mg/dL) 238 H Hemoglobin A1c Alkaline Phosphatase Total Protein 5.7 L Albumin 3.3 L HDL Cholesterol Urine Appearance Urine Glucose (UA) Ur Squamous Epith Cells Amorphous Sediment Hyaline Casts Urine Mucus 05/29/19 05/29/19 05/29/19 12:23 16:27 21:07 Plt Count Lymphocytes # APTT D-Dimer Chloride Carbon Dioxide BUN Creatinine Glucose POC Glucose (mg/dL) 131 H 144 H 211 H Hemoglobin A1c Alkaline Phosphatase Total Protein Albumin HDL Cholesterol Urine Appearance Urine Glucose (UA) Ur Squamous Epith Cells Amorphous Sediment Hyaline Casts Urine Mucus 05/30/19 06:44 Plt Count Lymphocytes # APTT D-Dimer Chloride Carbon Dioxide BUN Creatinine Glucose POC Glucose (mg/dL) 184 H Hemoglobin A1c Alkaline Phosphatase Total Protein Albumin HDL Cholesterol Urine Appearance Urine Glucose (UA) Ur Squamous Epith Cells Amorphous Sediment Hyaline Casts Urine Mucus - Diagnostic Findings Chest x-ray: report reviewed, image reviewed CT scan - chest: report reviewed, image reviewed Assessment and Plan Assessment: Left-sided pneumonia community-acquired Chronic persistent asthma mild to moderate severity with acute exacerbation Chronic systolic heart failure Evidence of pulmonary hypertension by CT criteria however echocardiogram revealed ejection fraction only 20%, with severe LV dysfunction and global hypokinesia Chronic atrial fibrillation Plan: Continue antibiotics Breathing treatment Increase activity as tolerated Diabetic control Maximize cardiac therapy Patient can be continued on bronchodilator as taking home which includes by mouth and Ventolin as needed Time with Patient: Greater than 30
[2019-05-30 11:43] LABS: Glucose,Whole Blood 167 mg/dL (75-99)
--- NOTE | 2019-05-30 14:06 | P.DS ---
Providers Date of admission: 05/26/19 18:54 Expected date of discharge: 05/30/19 Attending physician: Vishal Snell Consults: 05/26/19 18:58 Consult Physician Urgent Consulting Provider: Tim Leonard Consult Reason/Comments: Chest pain Do you want consulting provider notified?: Yes 05/28/19 11:48 Consult Physician Routine Consulting Provider: Gordy Stock Consult Reason/Comments: interstitial pneumonia Do you want consulting provider notified?: Yes 05/29/19 18:17 Consult Physician Routine Consulting Provider: Kendy Yang Consult Reason/Comments: cap Do you want consulting provider notified?: Yes 05/30/19 10:32 Consult Physician Routine Consulting Provider: Sagrario Lombardi Consult Reason/Comments: headaches,dizziness Do you want consulting provider notified?: Yes Primary care physician: [facility] Course: Final Diagnoses: Acute left-sided pneumonia, community-acquired Acute on chronic persistent asthma, mild to moderate Frontal cephalgia, possibly related to the above, neuro evaluation in progress Chronic systolic CHF, EF 20-25% Pulmonary hypertension per CT severe global hypokinesis, severe LV dysfunction Dilated aortic root 4.0 cm Hospital course: This is a 63-year-old female admitted with acute left-sided pneumonia, community-acquired, acute on chronic persistent asthma and multiple other medical issues. COVID-19 testing reporting negative. Contained on gentle IV fluid hydration, IV antibiotics, nebulized bronchodilators with significant clinical improvement. Fluctuating frontal headache, neurology consulted, evaluation pending. Patient will possibly be discharged home today in stable condition with guarded prognosis pending, evaluation, DC recommendations and clearance from neurology. EXAM: GEN: Alert and oriented 3, no acute distress. CV: Regular S1 and S2. LUNGS: Left basilar crackles, ABD: Soft, nontender, positive bowel sounds. Neuro: No focal deficits The impression and plan of care has been dictated as directed. : I performed a history and examination of this patient, discussed the same with the dictator. I agree with the dictator's note ,documented as a scribe. Any additional findings or plans will be noted. Patient Condition at Discharge: Stable Plan - Discharge Summary Discharge Rx Participant: Yes New Discharge Prescriptions: New Azithromycin [Zithromax] 500 mg PO DAILY #3 tab Cefuroxime Axetil [Ceftin] 500 mg PO BID 5 Days #10 tab Acetaminophen Tab [Tylenol] 650 mg PO Q4HR PRN tab PRN Reason: Fever And/ Or Pain Continue Magnesium Oxide [Mag-Ox] 250 mg PO DAILY Insulin Detemir (Levemir) [Levemir] 35 unit SQ HS Cyanocobalamin [Vitamin B-12] 250 mcg PO DAILY Aspirin EC [Ecotrin Low Dose] 81 mg PO DAILY Semaglutide [Ozempic] 0.25 mg SQ TH Pantoprazole [Protonix] 40 mg PO DAILY Montelukast [Singulair] 10 mg PO HS Spironolactone [Aldactone] 12.5 mg PO DAILY Fluticasone/Vilanterol [Breo Ellipta 100-25 Mcg Inhaler] 1 puff INHALATION RT-DAILY HYDROcodone/APAP 7.5-325MG [[place] 7.5-325] 1 tab PO Q4H PRN PRN Reason: Pain Metoprolol Tartrate [Lopressor] 25 mg PO BID Insulin Aspart [NovoLOG Flexpen] See Protocol SQ AC-TID Furosemide [Lasix] 20 mg PO DAILY Albuterol Sulfate [Albuterol Sulfate Hfa] 2 puff PO RT-Q4H PRN PRN Reason: Shortness Of Breath Albuterol Nebulized [Ventolin Nebulized] 2.5 mg INHALATION RT-Q6H PRN PRN Reason: Shortness Of Breath Ergocalciferol [Vitamin D2 (DRISDOL)] 50,000 unit PO Q30D Iron 25mg 25 mg PO NORRIS Beclomethasone Dip 80 Mcg/Puff [Qvar 80 mcg] 2 puff INHALATION RT-BID Atorvastatin [Lipitor] 40 mg PO HS Midodrine [ProAmatine] 5 mg PO AC-TID PRN PRN Reason: Blood Pressure - Low Insulin Aspart [NovoLOG Flexpen] 15 units SQ AC-BID #0 Insulin Aspart [NovoLOG Flexpen] 13 units SQ AC-BRKFST #0 Discharge Medication List Magnesium Oxide [Mag-Ox] 250 mg PO DAILY 05/06/14 [History] Insulin Detemir (Levemir) [Levemir] 35 unit SQ HS 11/17/14 [History] Cyanocobalamin [Vitamin B-12] 250 mcg PO DAILY 08/02/16 [History] Aspirin EC [Ecotrin Low Dose] 81 mg PO DAILY 11/02/18 [History] Fluticasone/Vilanterol [Breo Ellipta 100-25 Mcg Inhaler] 1 puff INHALATION RT- DAILY 11/02/18 [History] Montelukast [Singulair] 10 mg PO HS 11/02/18 [History] Pantoprazole [Protonix] 40 mg PO DAILY 11/02/18 [History] Semaglutide [Ozempic] 0.25 mg SQ TH 11/02/18 [History] Spironolactone [Aldactone] 12.5 mg PO DAILY 11/02/18 [History] Albuterol Sulfate [Albuterol Sulfate Hfa] 2 puff PO RT-Q4H PRN 01/14/19 [History] Furosemide [Lasix] 20 mg PO DAILY 01/14/19 [History] HYDROcodone/APAP 7.5-325MG [[place] 7.5-325] 1 tab PO Q4H PRN 01/14/19 [History] Insulin Aspart [NovoLOG Flexpen] See Protocol SQ AC-TID 01/14/19 [History] Metoprolol Tartrate [Lopressor] 25 mg PO BID 01/14/19 [History] Albuterol Nebulized [Ventolin Nebulized] 2.5 mg INHALATION RT-Q6H PRN 02/18/19 [History] Atorvastatin [Lipitor] 40 mg PO HS 05/26/19 [History] Beclomethasone Dip 80 Mcg/Puff [Qvar 80 mcg] 2 puff INHALATION RT-BID 05/26/19 [History] Ergocalciferol [Vitamin D2 (DRISDOL)] 50,000 unit PO Q30D 05/26/19 [History] Iron 25mg 25 mg PO NORRIS 05/26/19 [History] Midodrine [ProAmatine] 5 mg PO AC-TID PRN 05/26/19 [History] Acetaminophen Tab [Tylenol] 650 mg PO Q4HR PRN tab 05/30/19 [Rx] Azithromycin [Zithromax] 500 mg PO DAILY #3 tab 05/30/19 [Rx] Cefuroxime Axetil [Ceftin] 500 mg PO BID 5 Days #10 tab 05/30/19 [Rx] Insulin Aspart [NovoLOG Flexpen] 13 units SQ AC-BRKFST #0 05/30/19 [Rx] Insulin Aspart [NovoLOG Flexpen] 15 units SQ AC-BID #0 05/30/19 [Rx] Follow up Appointment(s)/Referral(s): Vishal Snell MD [Primary Care Provider] - 3 Days Gordy Stock MD [STAFF PHYSICIAN] - 1 Week
[2019-05-30 16:30] LABS: Glucose,Whole Blood 287 mg/dL (75-99)
[2019-05-30 20:09] LABS: Glucose,Whole Blood 171 mg/dL (75-99)
--- NOTE | 2019-05-30 20:22 | P.CNNES ---
History of Present Illness Consult date: 05/30/19 Reason for Consult: Chronic headache, periorbital eye pain. Chief complaint: Ongoing headache and worsening over the past years. Waking up with headach History of Present Illness: This is a new neurology consult requested for further advice and recommendations for a 63-year-old female with a complicated past medical history. The patient has a history for heart failure reactive airway disease insulin-dependent diabe jame renal disease. The patient was admitted on May 25 and was undergoing an infectious workup for [place] 19. She developed fever chills nausea while traveling from [place]. She did show evidence of a negative test for Kopit 19. However other significant findings include a left bundle branch block on EKG. Her CT of the chest was negative for pulmonary embolism but suggestive of pulmonary hypertension and interstitial pneumonia. Cardiomegaly was also noted. On her chest x-ray there was a left-sided infiltrate. Influenza testing was negative as well. Echo shows a very low ejection fraction 20% with global hypokinesis. This patient's past medical history is also significant for obstructive sleep apnea as well as atrial fibrillation neuropathy hypertension and COPD. Patient is also morbidly obese. The patient reports that she has had headaches ongoing for the past several years worsening. These headaches are primarily worse in the morning and by 12 noon. She describes the headache as bifrontal with periorbital pain around the eyes. This patient is also opioid dependent due to prior back surgeries/failed back surgeries. This patient has never been properly followed up for her obstructive sleep apnea. She was given the diagnosis about 6 years ago and has never had any follow-up care. She has not received any new device but for reasons unclear she still continues to receive the schedule allow by Medicare for replacement of mask hose and filters. Past Medical History Past Medical History: Atrial Fibrillation, Asthma, Coronary Artery Disease (CAD), Chest Pain / Angina, Heart Failure, Diabetes Mellitus, Hyperlipidemia, Hypertension, Musculoskeletal Disorder, Osteoarthritis (OA), Pneumonia, Renal Disease, Sleep Apnea/CPAP/BIPAP Additional Past Medical History / Comment(s): Arrhythmia, Afib-Converted with ablation 05/2013, Cardiomyopathy,DDD, Diabetic Neuropathy, Edema, Scoliosis,Anemia, KIDNEY STONES. History of Any Multi-Drug Resistant Organisms: None Reported Past Surgical History: Ablation, AICD, Back Surgery, Cardiac Ablation, Section, Cholecystectomy, Heart Catheterization, Hysterectomy, Joint Replacement, Orthopedic Surgery, Pacemaker Additional Past Surgical History / Comment(s): Varicose Vein Stripping,Rt Knee scope, D & C, Colonoscopy, Lithotripsy, Removal of kidney stones,LT TOTAL KNEE REPLACEMENT, Major back surgery 11/13/2018 in [facility], "Fusion and stenosis taken care of as well as spurs removed". Past Anesthesia/Blood Transfusion Reactions: No Reported Reaction Additional Past Anesthesia/Blood Transfusion Reaction / Comment(s): HAS HAD NO PROBLEMS WITH PRIOR BLOOD TRANSFUSIONS Type of Cardiac Device: Permanent Pacemaker, AICD Device Placement Date:: 03/14/2011-Metronic LT CHEST Past Psychological History: Anxiety, Depression Additional Psychological History / Comment(s): . She is on disability. She has no experience. She has no travel history. She is a lifelong nonsmoker. No history of recreational drug use. No history of alcohol use. No animals in the home at this time. Smoking Status: Never smoker Past Alcohol Use History: None Reported Past Drug Use History: None Reported - Past Family History Father Family Medical History: Cancer Brother(s) Family Medical History: Cancer Sister(s) Family Medical History: Cancer Mother Family Medical History: Cancer Medications and Allergies Home Medications Medication Instructions Recorded Confirmed Type Magnesium Oxide [Mag-Ox] 250 mg PO DAILY 05/06/14 05/26/19 History Insulin Detemir (Levemir) [Levemir] 35 unit SQ 11/17/14 05/26/19 History Cyanocobalamin [Vitamin B-12] 250 mcg PO DAILY 08/02/16 05/26/19 History Aspirin EC [Ecotrin Low Dose] 81 mg PO DAILY 11/02/18 05/26/19 History Fluticasone/Vilanterol [Breo 1 puff INHALATION RT-DAILY 11/02/18 05/26/19 History Ellipta 100-25 Mcg Inhaler] Montelukast [Singulair] 10 mg PO HS 11/02/18 05/26/19 History Pantoprazole [Protonix] 40 mg PO DAILY 11/02/18 05/26/19 History Semaglutide [Ozempic] 0.25 mg SQ TH 11/02/18 05/26/19 History Spironolactone [Aldactone] 12.5 mg PO DAILY 11/02/18 05/26/19 History Albuterol Sulfate [Albuterol 2 puff PO RT-Q4H PRN 01/14/19 05/26/19 History Sulfate Hfa] Furosemide [Lasix] 20 mg PO DAILY 01/14/19 05/26/19 History HYDROcodone/APAP 7.5-325MG [[place] 1 tab PO Q4H PRN 01/14/19 05/26/19 History 7.5-325] Insulin Aspart [NovoLOG Flexpen] See Protocol SQ AC-TID 01/14/19 05/26/19 History Metoprolol Tartrate [Lopressor] 25 mg PO BID 01/14/19 05/26/19 History Albuterol Nebulized [Ventolin 2.5 mg INHALATION RT-Q6H PRN 02/18/19 05/26/19 History Nebulized] Atorvastatin [Lipitor] 40 mg PO HS 05/26/19 05/26/19 History Beclomethasone Dip 80 Mcg/Puff 2 puff INHALATION RT-BID 05/26/19 05/26/19 History [Qvar 80 mcg] Ergocalciferol [Vitamin D2 50,000 unit PO Q30D 05/26/19 05/26/19 History (DRISDOL)] Iron 25mg 25 mg PO NORRIS 05/26/19 05/26/19 History Midodrine [ProAmatine] 5 mg PO AC-TID PRN 05/26/19 05/26/19 History Acetaminophen Tab [Tylenol] 650 mg PO Q4HR PRN tab 05/30/19 Rx Azithromycin [Zithromax] 500 mg PO DAILY #3 tab 05/30/19 Rx Cefuroxime Axetil [Ceftin] 500 mg PO BID 5 Days #10 tab 05/30/19 Rx Insulin Aspart [NovoLOG Flexpen] 13 units SQ AC-BRKFST #0 05/30/19 05/26/19 Rx Insulin Aspart [NovoLOG Flexpen] 15 units SQ AC-BID #0 05/30/19 05/26/19 Rx Allergies Allergy/AdvReac Type Severity Reaction Status Date / Time No Known Allergies Allergy Verified 05/26/19 19:17 Physical Examination - Vital Signs Vital Signs: Vital Signs Temp Pulse Pulse Resp BP Pulse Ox 05/30/19 18:57 98.0 F 62 15 138/72 97 05/30/19 16:41 64 03/30/20 16:30 62 05/30/19 14:38 98.2 F 60 18 109/67 97 05/30/19 11:05 66 05/30/19 10:55 60 05/30/19 08:18 64 05/30/19 07:22 60 05/30/19 07:12 64 05/30/19 07:00 97.8 F 55 L 16 111/68 97 05/30/19 01:49 97.8 F 65 14 155/83 97 Intake and Output 05/30/19 05/30/19 05/30/19 06:59 14:59 22:59 Intake Total 414 296 Output Total 1000 Balance -1000 414 296 Intake: Oral 414 296 Output: Urine 1000 Other: Voiding Method Toilet Toilet # Voids 2 1 Gen. physical exam Appearance: Tired fatigue morbidly obese. HEENT: Small oropharynx large broad-based time. [place]ista grade 3. Neck is supple. No cervical lymphadenopathy or thyromegaly noted. Pulses radial and pedal pulses are equal and symmetric. Extremities: Mild edema noted in the ankles bilaterally nonpitting. No edema noted in the hands. No clubbing of the digits noted. Skin: No rash bruising or petechia noted. Neurological exam mental status: Awake alert oriented 3. Speech fluent. Affect appropriate. Pupils 2 mm equally reactive to light and accommodation. Visual field examination intact to finger counting in all quadrants. Cranial nerve examination: Cranial nerves III through XII are intact. Motor examination: Mild give way weakness noted in the proximal biceps muscles bilaterally. Overall strength is -5 over 5 in the upper and lower extremities due to mild give way weakness (deconditioning) 6. Pronator drift negative. No distal muscle wasting noted. No fasciculations or tremor present. Coordination testing is intact to finger to nose testing with eyes open and eyes closed. Finger tapping sequentially is intact. [id number] maneuver intact. No dysmetria was noted on any of these maneuvers. Sensory examination grossly intact to light touch and pinprick throughout. Gait examination deferred Back: No point tenderness noted. Results - Laboratory Findings CBC and BMP: 05/29/19 06:14 05/29/19 06:14 Abnormal Lab Findings: Abnormal Labs 03/26/20 03/26/20 03/26/20 17:00 17:00 17:23 Plt Count 120 L Lymphocytes # APTT 21.8 L D-Dimer 5.79 H Chloride Carbon Dioxide 31 H BUN 31 H Creatinine 1.25 H Glucose 211 H POC Glucose (mg/dL) Hemoglobin A1c Alkaline Phosphatase 129 H Total Protein Albumin HDL Cholesterol Urine Appearance Urine Glucose (UA) Ur Squamous Epith Cells Amorphous Sediment Hyaline Casts Urine Mucus 05/26/19 05/27/19 05/27/19 18:06 05:47 05:47 Plt Count 104 L Lymphocytes # 0.5 L APTT D-Dimer Chloride Carbon Dioxide BUN Creatinine Glucose POC Glucose (mg/dL) Hemoglobin A1c Alkaline Phosphatase Total Protein Albumin HDL Cholesterol 77 H Urine Appearance Cloudy H Urine Glucose (UA) 1+ H Ur Squamous Epith Cells 8 H Amorphous Sediment Rare H Hyaline Casts 4 H Urine Mucus Rare H 05/27/19 05/27/19 05/27/19 05:47 05:56 12:06 Plt Count Lymphocytes # APTT 30.1 H D-Dimer Chloride Carbon Dioxide BUN Creatinine Glucose POC Glucose (mg/dL) 152 H 208 H Hemoglobin A1c Alkaline Phosphatase Total Protein Albumin HDL Cholesterol Urine Appearance Urine Glucose (UA) Ur Squamous Epith Cells Amorphous Sediment Hyaline Casts Urine Mucus 05/27/19 05/27/19 05/28/19 16:35 20:46 06:01 Plt Count Lymphocytes # APTT D-Dimer Chloride Carbon Dioxide BUN Creatinine Glucose POC Glucose (mg/dL) 180 H 159 H 191 H Hemoglobin A1c Alkaline Phosphatase Total Protein Albumin HDL Cholesterol Urine Appearance Urine Glucose (UA) Ur Squamous Epith Cells Amorphous Sediment Hyaline Casts Urine Mucus 05/28/19 05/28/19 05/28/19 06:23 06:23 06:23 Plt Count 102 L Lymphocytes # 0.8 L APTT D-Dimer Chloride 109 H Carbon Dioxide BUN 24 H Creatinine 1.09 H Glucose 173 H POC Glucose (mg/dL) Hemoglobin A1c 9.2 H Alkaline Phosphatase Total Protein Albumin HDL Cholesterol Urine Appearance Urine Glucose (UA) Ur Squamous Epith Cells Amorphous Sediment Hyaline Casts Urine Mucus 05/28/19 05/28/19 05/28/19 11:46 16:55 20:16 Plt Count Lymphocytes # APTT D-Dimer Chloride Carbon Dioxide BUN Creatinine Glucose POC Glucose (mg/dL) 139 H 196 H 163 H Hemoglobin A1c Alkaline Phosphatase Total Protein Albumin HDL Cholesterol Urine Appearance Urine Glucose (UA) Ur Squamous Epith Cells Amorphous Sediment Hyaline Casts Urine Mucus 05/29/19 05/29/19 05/29/19 06:14 06:14 06:17 Plt Count 102 L Lymphocytes # APTT D-Dimer Chloride Carbon Dioxide BUN 22 H Creatinine 1.27 H Glucose 205 H POC Glucose (mg/dL) 238 H Hemoglobin A1c Alkaline Phosphatase Total Protein 5.7 L Albumin 3.3 L HDL Cholesterol Urine Appearance Urine Glucose (UA) Ur Squamous Epith Cells Amorphous Sediment Hyaline Casts Urine Mucus 05/29/19 05/29/19 05/29/19 12:23 16:27 21:07 Plt Count Lymphocytes # APTT D-Dimer Chloride Carbon Dioxide BUN Creatinine Glucose POC Glucose (mg/dL) 131 H 144 H 211 H Hemoglobin A1c Alkaline Phosphatase Total Protein Albumin HDL Cholesterol Urine Appearance Urine Glucose (UA) Ur Squamous Epith Cells Amorphous Sediment Hyaline Casts Urine Mucus 05/30/19 05/30/19 05/30/19 06:44 11:42 16:29 Plt Count Lymphocytes # APTT D-Dimer Chloride Carbon Dioxide BUN Creatinine Glucose POC Glucose (mg/dL) 184 H 167 H 287 H Hemoglobin A1c Alkaline Phosphatase Total Protein Albumin HDL Cholesterol Urine Appearance Urine Glucose (UA) Ur Squamous Epith Cells Amorphous Sediment Hyaline Casts Urine Mucus 05/30/19 20:05 Plt Count Lymphocytes # APTT D-Dimer Chloride Carbon Dioxide BUN Creatinine Glucose POC Glucose (mg/dL) 171 H Hemoglobin A1c Alkaline Phosphatase Total Protein Albumin HDL Cholesterol Urine Appearance Urine Glucose (UA) Ur Squamous Epith Cells Amorphous Sediment Hyaline Casts Urine Mucus Assessment and Plan Plan: This is a 63-year-old female with a complicated past medical history. She suffers from ongoing headaches that primarily begin in the morning upon awakening at least by 12 noon. This was patient's history she is at increased risk for developing complex sleep apnea due to her history of cardiac disease along with chronic opioid dependency. This patient has had very poor follow up with her sleep apnea and I suspect this patient does require appropriate device for complex sleep apnea. This patient's ejection fraction however is very low at 20-25%. Ordinarily in complex sleep apnea these patients can do quite well on adaptive servo ventilation but in her case this would be contraindicated with any ejection fraction less than 45%. 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 This is also known as benign increase and cranial pressure. With her complaints of periorbital pain and difficulty seeing with the headaches raises concern that this should also a further investigated. In addition to the pain being often bitemporal temporal arteritis should also be considered part of the differential. Summary 1. Morbidly obese female with complicated cardiac history increasing her risk for complex sleep apnea. 2. Opioid dependency, increased risk for complex sleep apnea. 3. Suspect benign increased intracranial pressure. based on body habitus 4. Headache localization often temporal suspicious for temporal arteritis. 5. Acute left sided pneumonia community acquired. 6. Acute chronic persistent reactive airway disease. 7. Chronic systolic congestive heart failure with ejection fraction 20-25%. 8. Pulmonary hypertension now noted on CT of chest. 9. Dilated aortic root noted on chest CT. Recommendations: 1. Recommend holding discharge and try to proceed with workup inpatient. The workup for complex sleep apnea will have to occur as an outpatient. Unless we can have this patient undergo a titration study soon on BiPAPBiPAP ST mowed. 2. Obtain computed tomography scan of the head tomorrow morning. If there is evidence of slitlike ventricles this is often seen with benign increased intracranial pressure. These findings are present, we can proceed possible with a lumbar puncture with measurements of opening and closing pressure. 3. Sed rate tonight to rule out temporal arteritis. 4. Additional labs to consider: TSH free T4 due to difficulty with weight loss. 5. This patient has not been able to have access to her CPAP device. Would r ecommend respiratory therapy setting her up to 9 on bilevel pressure device starting with an IPAP of 8 and EPAP of 4. This patient's prognosis remains guarded. Further recommendations will be made as this case evolves. Thank you for this consultation.
--- NOTE | 2019-05-30 21:08 | CT ---
EXAMINATION TYPE: CT brain wo con DATE OF EXAM: 05/30/2019 COMPARISON: 02/18/2019 HISTORY: possible tumor CT DLP: 1150.4 mGycm Automated exposure control for dose reduction was used. Exam performed with no contrast. Ventricles have normal size. There is no mass effect nor midline shift. There is no sign of intracran ial hemorrhage. There is extensive hyperostosis frontalis. There is large mucus retention cyst in the left maxillary sinus. IMPRESSION: No acute intracranial abnormality. No change.
[2019-05-30] MEDS: ATORVASTATIN 40 MG TAB PO SCH (21:25)
[2019-05-30] MEDS: MONTELUKAST 10 MG TAB PO SCH (21:25)
[2019-05-30] MEDS: INSULIN DETEMIR (LEVEMIR) 100 UNIT/ML SYR SQ SCH (21:26)
--- NOTE | 2019-05-30 22:36 | P.CONS ---
History of Present Illness - Reason for Consult Consult date: 05/30/19 pneumonia Requesting physician: Vishal Snell - Chief Complaint shortness of breath and cough x 2 days - History of Present Illness Patient is a 63-year female presenting to the ER at [facility] on May 26, 2019 with chief complaints of chest pain and shortness of breath that has been getting worse for the last 2 days apparently the patient recently flew back from [place] and has felt feverish chills nausea upon returning from [place] patient complaining of chest pain mostly central chest for [place] also associated cough which has been moderate in intensity with occasional sputum production no nausea vomiting abdominal pain diarrhea started while in-house on presentation to the hospital patient was afebrile he did have a normal white count influenza serology was negative she has been tested for COVID-19 which came back negative patient did have a chest x-ray followed by CT angiogram which did show some groundglass pulmonary interstitial infiltrate consistent with nonspecific interstitial pneumonia [facility] was consulted today for further recommendation about antibiotic therapy patient is remains to be diarrhea currently started while in house and has multiple loose stool about 4 times with no blood or mucus in the stools. Review of Systems Positive point has been mentioned in HPI rest of the systems are negative Past Medical History Past Medical History: Atrial Fibrillation, Asthma, Coronary Artery Disease (CAD ), Chest Pain / Angina, Heart Failure, Diabetes Mellitus, Hyperlipidemia, Hypertension, Musculoskeletal Disorder, Osteoarthritis (OA), Pneumonia, Renal Disease, Sleep Apnea/CPAP/BIPAP Additional Past Medical History / Comment(s): Arrhythmia, Afib-Converted with ablation 05/2013, Cardiomyopathy,DDD, Diabetic Neuropathy, Edema, Scoliosis,Anemia, KIDNEY STONES. History of Any Multi-Drug Resistant Organisms: None Reported Past Surgical History: Ablation, AICD, Back Surgery, Cardiac Ablation, Section, Cholecystectomy, Heart Catheterization, Hysterectomy, Joint Replacement, Orthopedic Surgery, Pacemaker Additional Past Surgical History / Comment(s): Varicose Vein Stripping,Rt Knee scope, D & C, Colonoscopy, Lithotripsy, Removal of kidney stones,LT TOTAL KNEE REPLACEMENT, [facility], "Fusion and stenosis taken care of as well as spurs removed". Past Anesthesia/Blood Transfusion Reactions: No Reported Reaction Additional Past Anesthesia/Blood Transfusion Reaction / Comm: HAS HAD NO PROBLEMS WITH PRIOR BLOOD TRANSFUSIONS Type of Cardiac Device: Permanent Pacemaker, AICD Device Placement Date:: 03/14/2011-Metronic LT CHEST Past Psychological History: Anxiety, Depression Additional Psychological History / Comment(s): . She is on disability. She has no experience. She has no travel history. She is a lifelong nonsmoker. No history of recreational drug use. No history of alcohol use. No animals in the home at this time. Smoking Status: Never smoker Past Alcohol Use History: None Reported Past Drug Use History: None Reported - Past Family History Father Family Medical History: Cancer Brother(s) Family Medical History: Cancer Sister(s) Family Medical History: Cancer Mother Family Medical History: Cancer Medications and Allergies Home Medications Medication Instructions Recorded Confirmed Type Magnesium Oxide [Mag-Ox] 250 mg PO DAILY 05/06/14 05/26/19 History Insulin Detemir (Levemir) [Levemir] 35 unit SQ HS 11/17/14 05/26/19 History Cyanocobalamin [Vitamin B-12] 250 mcg PO DAILY 08/02/16 05/26/19 History Aspirin EC [Ecotrin Low Dose] 81 mg PO DAILY 11/02/18 05/26/19 History Fluticasone/Vilanterol [Breo 1 puff INHALATION RT-DAILY 11/02/18 05/26/19 History Ellipta 100-25 Mcg Inhaler] Montelukast [Singulair] 10 mg PO HS 11/02/18 05/26/19 History Pantoprazole [Protonix] 40 mg PO DAILY 11/02/18 05/26/19 History Semaglutide [Ozempic] 0.25 mg SQ TH 11/02/18 05/26/19 History Spironolactone [Aldactone] 12.5 mg PO DAILY 11/02/18 05/26/19 History Albuterol Sulfate [Albuterol 2 puff PO RT-Q4H PRN 01/14/19 05/26/19 History Sulfate Hfa] Furosemide [Lasix] 20 mg PO DAILY 01/14/19 05/26/19 History HYDROcodone/APAP 7.5-325MG [[place] 1 tab PO Q4H PRN 01/14/19 05/26/19 History 7.5-325] Insulin Aspart [NovoLOG Flexpen] See Protocol SQ AC-TID 01/14/19 05/26/19 History Metoprolol Tartrate [Lopressor] 25 mg PO BID 01/14/19 05/26/19 History Albuterol Nebulized [Ventolin 2.5 mg INHALATION RT-Q6H PRN 02/18/19 05/26/19 History Nebulized] Atorvastatin [Lipitor] 40 mg PO HS 05/26/19 05/26/19 History Beclomethasone Dip 80 Mcg/Puff 2 puff INHALATION RT-BID 05/26/19 05/26/19 History [Qvar 80 mcg] Ergocalciferol [Vitamin D2 50,000 unit PO Q30D 05/26/19 05/26/19 History (DRISDOL)] Iron 25mg 25 mg PO NORRIS 05/26/19 05/26/19 History Midodrine [ProAmatine] 5 mg PO AC-TID PRN 05/26/19 05/26/19 History Acetaminophen Tab [Tylenol] 650 mg PO Q4HR PRN tab 05/30/19 Rx Azithromycin [Zithromax] 500 mg PO DAILY #3 tab 05/30/19 Rx Cefuroxime Axetil [Ceftin] 500 mg PO BID 5 Days #10 tab 05/30/19 Rx Insulin Aspart [NovoLOG Flexpen] 13 units SQ AC-BRKFST #0 05/30/19 05/26/19 Rx Insulin Aspart [NovoLOG Flexpen] 15 units SQ AC-BID #0 05/30/19 05/26/19 Rx Allergies Allergy/AdvReac Type Severity Reaction Status Date / Time No Known Allergies Allergy Verified 05/26/19 19:17 Physical Exam Vitals: Vital Signs Temp Pulse Pulse Resp BP Pulse Ox 05/30/19 14:38 98.2 F 60 18 109/67 97 05/30/19 11:05 66 05/30/19 10:55 60 05/30/19 08:18 64 05/30/19 07:22 60 05/30/19 07:12 64 05/30/19 07:00 97.8 F 55 L 16 111/68 97 05/30/19 01:49 97.8 F 65 14 155/83 97 05/29/19 19:43 97.9 F 60 16 124/69 96 Intake and Output 05/30/19 05/30/19 05/30/19 06:59 14:59 22:59 Intake Total 414 Output Total 1000 Balance -1000 414 Intake: Oral 414 Output: Urine 1000 Other: Voiding Method Toilet # Voids 2 1 GENERAL DESCRIPTION: Middle-aged female lying in bed, no distress. No tachypnea or accessory muscle of respiration use. HEENT: Shows Pallor , no scleral icterus. Oral mucous membrane is dry. NECK: Trachea central, no thyromegaly. LUNGS: Unlabored breathing. Decreased breath sound at the base . No wheeze or crackle. HEART: S1, S2, regular rate and rhythm. ABDOMEN: Soft, no tenderness , guarding or rigidity EXTREMITIES: No edema of feet. SKIN: No rash, no masses palpable. NEUROLOGICAL: The patient is awake, alert, oriented x3, mood and affect normal. Results CBC & Chem 7: 05/29/19 06:14 05/29/19 06:14 Labs: Abnormal Lab Results - Last 24 Hours (Table) 05/29/19 05/29/19 05/30/19 Range/Units 16:27 21:07 06:44 POC Glucose (mg/dL) 144 H 211 H 184 H (75-99) mg/dL 05/30/19 Range/Units 11:42 POC Glucose (mg/dL) 167 H (75-99) mg/dL Assessment and Plan Assessment: 1-patient presented to hospital with increasing shortness of breath feverish tho ugh no fever was recorded or elevated white count CT angiogram which shows interstitial infiltrate with concern for possible interstitial pneumonia she has been ruled out for COVID-19. 2-diarrhea antibiotic associated we will check a stool for C. difficile and treat if positive (1) Antibiotic-associated diarrhea Current Visit: Yes Status: Acute Code(s): K52.1 - TOXIC GASTROENTERITIS AND COLITIS; T36.95XA - ADVERSE EFFECT OF UNSP SYSTEMIC ANTIBIOTIC, INIT ENCNTR SNOMED Code(s): 716843748 (2) Pneumonia Current Visit: Yes Status: Acute Code(s): J18.9 - PNEUMONIA, UNSPECIFIED ORGANISM SNOMED Code(s): 139032345 Plan: 1-patient is currently on Rocephin and Zithromax in view of predominant interstitial pneumonia with pneumonia we will switch antibiotic to oral Levaquin and check urine for Legionella antigen 2-check stool for C. difficile 3-we will add Questran for symptomatic relief We will follow on clinical condition and cultures to further adjust medication if needed Thank you for this consultation we will follow the patient along with you Time with Patient: Greater than 30
[2019-05-31] MEDS: HYDROcodone/APAP 7.5-325MG 1 EACH TAB PO PRN ×5 (00:04→20:59)
[2019-05-31 06:51] LABS: Glucose,Whole Blood 166 mg/dL (75-99)
[2019-05-31 07:10] LABS: T4, Free (Free Thyroxine) 1.21 ng/dL (0.78-2.19)
[2019-05-31] MEDS: INSULIN ASPART (NovoLOG) 100 UNIT/ML VIAL SQ SCH ×7 (07:20→19:37)
[2019-05-31] MEDS: MAGNESIUM OXIDE 400 MG TAB PO SCH (07:21)
[2019-05-31] MEDS: PANTOPRAZOLE 40 MG TABLET PO SCH (07:21)
[2019-05-31] MEDS: SPIRONOLACTONE 25 MG TAB PO SCH (07:21)
[2019-05-31] MEDS: METOPROLOL TARTRATE 25 MG TAB PO SCH ×2 (07:23→19:40)
[2019-05-31] MEDS: ASPIRIN 81 MG PO SCH (07:23)
[2019-05-31] MEDS: CYANOCOBALAMIN 500 MCG TAB PO SCH (07:23)
[2019-05-31] MEDS: DOCUSATE 100 MG CAP PO SCH ×2 (07:24→19:40)
[2019-05-31] MEDS: FUROSEMIDE 20 MG TAB PO SCH (07:24)
[2019-05-31] MEDS: CHOLESTYRAMINE (WITH SUGAR) 4 GM PACKET PO SCH ×2 (07:26→16:55)
[2019-05-31] MEDS: IPRATROPIUM-ALBUTEROL 3 ML NEB INHALATION SCH ×4 (07:29→19:52)
[2019-05-31] MEDS: FLUTICASONE 110 MCG INHALER INHALATION SCH ×2 (07:29→19:51)
[2019-05-31] MEDS ORDERED: AZITHROMYCIN 500 MG TAB PO SCH (09:00)
[2019-05-31] MEDS ORDERED: LEVOFLOXACIN 750 MG TAB PO SCH (09:00)
[2019-05-31 11:38] LABS: Glucose,Whole Blood 152 mg/dL (75-99)
[2019-05-31 17:04] LABS: Glucose,Whole Blood 196 mg/dL (75-99)
[2019-05-31 19:24] LABS: Glucose,Whole Blood 203 mg/dL (75-99)
[2019-05-31] MEDS: INSULIN DETEMIR (LEVEMIR) 100 UNIT/ML SYR SQ SCH (19:36)
[2019-05-31] MEDS: ATORVASTATIN 40 MG TAB PO SCH (19:40)
[2019-05-31] MEDS: MONTELUKAST 10 MG TAB PO SCH (19:40)
--- NOTE | 2019-05-31 19:58 | PN ---
PROGRESS NOTE DATE OF SERVICE: 05/31/2019 REASON FOR FOLLOWUP: Pneumonia. INTERVAL HISTORY: The patient is currently afebrile. The patient is breathing comfortably on room air. Still complaining of some cough, but no sputum. No nausea, no vomiting, no abdominal pain. Diarrhea has improved. PHYSICAL EXAMINATION: Blood pressure 127/65 with a pulse of 64, temperature 97.9. She is 98% on room air. General description is a middle-aged female lying in bed in no distress. RESPIRATORY SYSTEM: Unlabored breathing with decreased breath sounds at the base. No wheeze. HEART: S1, S2. Regular rate and rhythm. ABDOMEN: Soft. No tenderness. LABS: Sedimentation rate of 12. Stool for C difficile was negative. DIAGNOSTIC IMPRESSION AND PLAN: 1. Patient admitted to hospital with increasing shortness of breath and cough with concern for pneumonia. The patient is currently covered with Levaquin; to continue. Waiting for currently pending. 2. Diarrhea, antibiotic-associated. This seems to have shown clinical improvement. Stool for C difficile was negative. MMODL / IJN: [id number] /
[2019-06-01] MEDS: HYDROcodone/APAP 7.5-325MG 1 EACH TAB PO PRN ×4 (02:32→18:05)
[2019-06-01 06:47] LABS: Glucose,Whole Blood 194 mg/dL (75-99)
[2019-06-01] MEDS: FLUTICASONE 110 MCG INHALER INHALATION SCH ×2 (07:56→21:03)
[2019-06-01] MEDS: IPRATROPIUM-ALBUTEROL 3 ML NEB INHALATION SCH ×4 (07:56→21:03)
[2019-06-01] MEDS: INSULIN ASPART (NovoLOG) 100 UNIT/ML VIAL SQ SCH ×7 (08:07→21:04)
[2019-06-01] MEDS: ASPIRIN 81 MG PO SCH (08:08)
[2019-06-01] MEDS: DOCUSATE 100 MG CAP PO SCH ×2 (08:08→21:05)
[2019-06-01] MEDS: SPIRONOLACTONE 25 MG TAB PO SCH (08:25)
[2019-06-01] MEDS: CYANOCOBALAMIN 500 MCG TAB PO SCH (08:26)
[2019-06-01] MEDS: FUROSEMIDE 20 MG TAB PO SCH (08:26)
[2019-06-01] MEDS: PANTOPRAZOLE 40 MG TABLET PO SCH (08:26)
[2019-06-01] MEDS: METOPROLOL TARTRATE 25 MG TAB PO SCH ×2 (08:26→21:03)
[2019-06-01] MEDS: MAGNESIUM OXIDE 400 MG TAB PO SCH (08:26)
[2019-06-01 11:24] LABS: Glucose,Whole Blood 167 mg/dL (75-99)
[2019-06-01] MEDS ORDERED: CYCLOBENZAPRINE 10 MG TAB PO STA (12:48)
[2019-06-01] MEDS: CHOLESTYRAMINE (WITH SUGAR) 4 GM PACKET PO SCH ×2 (14:10→17:02)
[2019-06-01 15:09] VITALS: BMI 40.6
--- NOTE | 2019-06-01 16:23 | P.PN ---
Subjective Progress Note Date: 06/01/19 This is a 63-year-old female admitted with acute left-sided pneumonia, community-acquired, acute on chronic persistent asthma and multiple other medical issues. COVID-19 testing reporting negative. Contained on gentle IV fluid hydration, IV antibiotics, nebulized bronchodilators with significant clinical improvement. Fluctuating frontal headache, neurology consulted, evaluation pending. Patient will possibly be discharged home today in stable condition with guarded prognosis pending, evaluation, DC recommendations and clearance from neurology. 05/31/2019 evaluated by infectious disease and antibiotics adjusted. Legionella pending. Evaluated by neurology, workup in progress. Patient eager for discharge. Patient to be discharged home today in a stable condition with guarded prognosis pending neurology's clearance, final DC recommendations. 06/01/[address] reporting no acute intracranial abnormality. Interventional radiology unable to perform lumbar puncture for another 48 hours, Thursday at the soonest. Patient upset regarding being extended hospitalizaation. Patient will be discharged home today in stable condition with guarded prognosis pending neurology's clearance and recommended outpatient testing/DC recommendations. Attempted Flexeril for suspected pinched nerve in neck with no resolution of headache. Patient now prefers to stay and proceed with lumbar puncture on Thursday. Denies chest pain, palpitations or shortness of breath. Objective - Vital Signs Vital signs: Vital Signs Temp 97.9 F 06/01/19 13:35 Pulse 64 06/01/19 13:35 Resp 16 06/01/19 13:35 BP 124/69 06/01/19 13:35 Pulse Ox 92 L 06/01/19 13:35 Intake & Output 05/31/19 06/01/19 06/01/19 18:59 06:59 18:59 Intake Total 300 Balance 300 Weight 110.9 kg 110.9 kg Intake: Oral 300 Other: # Voids 3 2 - Exam PHYSICAL EXAM: VITAL SIGNS: As above GENERAL: Sitting up in bed, no acute distress HEENT: Conjunctivae normal. eyes normal. Oral mucosa moist NECK: No JVD. No thyroid enlargement. No LNs CARDIOVASCULAR: S1, S2 regular.. No murmur RESPIRATION: Breath sounds diminished in the bases. No rhonchi, fine occasional left basilar crackles, no wheezing ABDOMEN: Soft, nontender . No guarding. no masses palpable. No ascites, No hepatosplenomegaly.Bowel sounds heard. LEGS: No edema. no swelling PSYCHIATRY: Alert and oriented X3, mood and affect normal. NERVOUS SYSTEM: Cranial N 2-12 grossly normal. Moves all 4 limbs. No focal d eficits. Strength and sensation grossly intact.. Skin: no rash - Labs CBC & Chem 7: 05/29/19 06:14 05/29/19 06:14 Labs: Abnormal Lab Results - Last 24 Hours (Table) 05/31/19 05/31/19 06/01/19 Range/Units 16:44 19:22 06:44 POC Glucose (mg/dL) 196 H 203 H 194 H (75-99) mg/dL 06/01/19 Range/Units 11:21 POC Glucose (mg/dL) 167 H (75-99) mg/dL Assessment and Plan Assessment: Acute left-sided pneumonia, community-acquired Acute on chronic persistent asthma, mild to moderate Frontal cephalgia, possibly related to the above, neuro workup in progress, rule out temporal arteritis Chronic systolic CHF, EF 20-25% Pulmonary hypertension per CT severe global hypokinesis, severe LV dysfunction Dilated aortic root 4.0 cm Morbid obesity, BMI 40.7 Possible sleep apnea, outpatient workup Plan: Continue on current medication regime ,monitoring and symptomatic treatment. Maintain antibiotics. Neurology workup in progress with lumbar puncture scheduled for Thursday. Discharge soon. The impression and plan of care has been dictated as directed. : I performed a history and examination of this patient, discussed the same with the dictator. I agree with the dictator's note ,documented as a scribe. Any additional findings or plans will be noted.
--- NOTE | 2019-06-01 16:25 | PN ---
PROGRESS NOTE DATE OF SERVICE: 06/01/2019 REASON FOR FOLLOWUP: 1. Pneumonia. 2. Diarrhea. INTERVAL HISTORY: The patient is currently afebrile. The patient has been breathing more comfortably. The patient denies having any chest pain. She did have some cough but no sputum. No nausea, no vomiting, no abdominal pain and no diarrhea. PHYSICAL EXAMINATION: Blood pressure 124/69 with a pulse of 54, temperature 97.9. She is 92% on room air. General description is a middle-aged female up in the chair in no distress. RESPIRATORY SYSTEM: Unlabored breathing with decreased breath sounds at the base. No wheeze. HEART: S1, S2. Regular rate and rhythm. ABDOMEN: Soft. No tenderness. LABS: No new labs have been obtained today. DIAGNOSTIC IMPRESSION AND PLAN: 1. Patient admitted to hospital with pneumonia. She has been ruled out for acute COVID-19. Influenza was negative and urine for legionella antigen is negative. she is currently covered with Levaquin; to continue. 2. Diarrhea, antibiotic-associated, improved after discontinuation of the Rocephin. Monitor her clinical course closely. MMODL / IJN: [id number] /
[2019-06-01 16:52] LABS: Glucose,Whole Blood 142 mg/dL (75-99)
[2019-06-01 19:54] LABS: Glucose,Whole Blood 164 mg/dL (75-99)
[2019-06-01] MEDS ORDERED: diphenhydrAMINE 50 MG/ML 1 ML VIAL IVP STA (19:57)
[2019-06-01] MEDS ORDERED: BUTALB/APAP/CAFF 50-325-40MG TAB PO STA (19:57)
[2019-06-01] MEDS: ATORVASTATIN 40 MG TAB PO SCH (21:03)
[2019-06-01] MEDS: MONTELUKAST 10 MG TAB PO SCH (21:03)
[2019-06-01] MEDS: INSULIN DETEMIR (LEVEMIR) 100 UNIT/ML SYR SQ SCH (21:05)
--- NOTE | 2019-06-01 21:13 | P.PN ---
Subjective Progress Note Date: 06/01/19 Principal diagnosis: Intractable headaches Subjective: Patient reports sleeping better through the night now on BiPAP. However she awakened this morning again with a headache that has been building throughout the day now at a pain level 7-8. Otherwise patient reports no new ne urological findings such as weakness change in vision or paresthesias. The headaches still she reports is frontal with periorbital pain. Objective - Vital Signs Vital signs: Vital Signs Temp 97.8 F 06/01/19 18:54 Pulse 61 06/01/19 18:54 Resp 14 06/01/19 18:54 BP 96/45 06/01/19 18:54 Pulse Ox 97 06/01/19 18:54 Intake & Output 06/01/19 06/01/19 06/02/19 06:59 18:59 06:59 Intake Total 300 Balance 300 Weight 110.9 kg 110.9 kg Intake: Oral 300 Other: # Voids 2 - Exam Exam: Appearance: Patient awake alert no acute distress. HEENT: Conjunctival clear. Oropharynx is clear. Extremities: No edema noted in the hands or feet. Skin: No rash bruising or edema noted. Neurological exam Mental status awake alert oriented. Speech fluent. Next time pupils 2 mm equally reactive to light and accommodation. Motor examination: Moves all 4 extremities equally. Gait deep tendon reflexes and sensory exam deferred. - Labs CBC & Chem 7: 05/29/19 06:14 05/29/19 06:14 Labs: Abnormal Lab Results - Last 24 Hours (Table) 06/01/19 06/01/19 06/01/19 Range/Units 06:44 11:21 16:50 POC Glucose (mg/dL) 194 H 167 H 142 H (75-99) mg/dL 06/01/19 Range/Units 19:52 POC Glucose (mg/dL) 164 H (75-99) mg/dL Assessment and Plan Assessment: Assessment recommendations: 63-year-old female with intractable headache consult requested by neurology to assess. This patient's headache may be multifactorial. Current differential diagnosis includes the following untreated obstructive sleep apnea with high likelihood of complex sleep apnea due to chronic opioid use and obesity. Pseudotumor cerebra. This is based on her morbid obesity and headache distribution of periorbital pain along with bifrontal pain. Recommendations: 1. For the acute headache management this evening we will proceed with a trauma migraine cocktail. 2 tablets of Fioricet followed by 50 mg IV of Benadryl, 1000 mg by mouth of Robaxin for muscle relaxant. Zofran was not given due to the patient's potential interaction with Leva giuliana antibiotic. 2. Patient is on scheduled for Thursday for lumbar puncture to obtain opening and closing pressures. Orders have been placed and instructions to obtain opening and closing pressure are in place. After the apnea the patient should remain inpatient for at least 5 hours post LP. Patient is to remain in supine position. Patient is stable after 5 hours she may be discharged home with follow-up with outpatient neurologist. I will have the results of the opening closing pressure immediately after the lumbar puncture. If the patient does meet criteria for pseudotumor cerebri the patient will be started on Diamox and counseled on a low-sodium diet and weight loss program. Further follow-up care for this form headache will need to be with a outpatient neurologist. CSF analysis results will be deferred to Dr. Bear to follow-up next week and contact the patient by phone with those results. Thank for this consult patient will continue to be followed closely. If there is any acute clinical change please notify [facility] neurology.
[2019-06-01] MEDS: METHOCARBAMOL 500 MG TAB PO PRN (21:47)
[2019-06-02] MEDS: BUTALB/APAP/CAFF 50-325-40MG TAB PO PRN ×2 (06:32→14:05)
[2019-06-02] MEDS: METHOCARBAMOL 500 MG TAB PO PRN ×2 (06:33→14:06)
[2019-06-02 06:55] LABS: Glucose,Whole Blood 167 mg/dL (75-99)
[2019-06-02] MEDS: INSULIN ASPART (NovoLOG) 100 UNIT/ML VIAL SQ SCH ×7 (07:46→22:12)
[2019-06-02] MEDS: CYANOCOBALAMIN 500 MCG TAB PO SCH (07:47)
[2019-06-02] MEDS: FUROSEMIDE 20 MG TAB PO SCH (07:47)
[2019-06-02] MEDS: METOPROLOL TARTRATE 25 MG TAB PO SCH ×2 (07:47→22:01)
[2019-06-02] MEDS: PANTOPRAZOLE 40 MG TABLET PO SCH (07:47)
[2019-06-02] MEDS: SPIRONOLACTONE 25 MG TAB PO SCH (07:47)
[2019-06-02] MEDS: MAGNESIUM OXIDE 400 MG TAB PO SCH (07:47)
[2019-06-02] MEDS: ASPIRIN 81 MG PO SCH (07:50)
[2019-06-02] MEDS: CHOLESTYRAMINE (WITH SUGAR) 4 GM PACKET PO SCH ×2 (07:50→22:02)
[2019-06-02] MEDS: DOCUSATE 100 MG CAP PO SCH ×2 (07:50→22:02)
[2019-06-02] MEDS ORDERED: LEVOFLOXACIN 750 MG TAB PO SCH (09:00)
[2019-06-02] MEDS: IPRATROPIUM-ALBUTEROL 3 ML NEB INHALATION SCH ×4 (09:06→19:30)
[2019-06-02] MEDS: FLUTICASONE 110 MCG INHALER INHALATION SCH ×2 (09:19→19:45)
--- NOTE | 2019-06-02 09:54 | P.PN ---
Subjective Progress Note Date: 06/02/19 Principal diagnosis: Left-sided pneumonia community-acquired Chronic persistent asthma mild to moderate severity with acute exacerbation Chronic systolic heart failure Evidence of pulmonary hypertension by CT criteria however echocardiogram revealed ejection fraction only 20%, with severe LV dysfunction and global hypokinesia Chronic atrial fibrillation 06/02/2019, patient seen eval examined during the rounds labs reviewed medications reviewed, patient is currently undergoing breathing treatment, respiratory status stable however patient is getting evaluation with neurology about intractable headache has been using BiPAP which seems to be helping, patient likely has severe degree of sleep disorder breathing and sleep apnea to be evaluated further outpatient setting This is a 63-year-old female who was seen evaluated examined on fourth floor patient has a history of chronic persistent asthma of mild to moderate severity, patient also has a history of hypertension hypertensive cardiovascular disease and renal calculi has been morbidly obese, patient has been doing well awake ago, was in [place], patient was an Route from [place] to [place] a lot of turbulence happen the flight after which she started feeling sick in terms of breathing difficulty chest tightness and pain shortness of breath presented into the hospital she was initially evaluated for covert 19 infection has been ruled out with negative testing, her chest x-ray shows left-sided infiltrate, computed tomography scan of the chest revealed no pulmonary embolism large pulmonary vasculature likely cystoscopy pulmonary hypertension some infiltrate prominently interstitial on the left lower field and mid field, and likely pneumonia, her influenza A and B were negative, only she is on room air with oxygen saturation 97%, hemodynamically stable, respiratory status improved significantly, the echocardiogram revealed presence of ejection fraction only 20% with global hypokinesia Objective - Vital Signs Vital signs: Vital Signs Temp 98.0 F 06/02/19 07:00 Pulse 74 06/02/19 09:19 Resp 18 06/02/19 07:00 BP 95/51 06/02/19 07:00 Pulse Ox 99 06/02/19 07:00 Intake & Output 06/01/19 06/02/19 06/02/19 18:59 06:59 18:59 Weight 110.9 kg Other: Voiding Method Toilet # Voids 2 1 - Exam - Constitutional General appearance: disheveled, morbidly obese - EENT Eyes: EOMI, PERRLA ENT: normal oropharynx Ears: bilateral: normal - Neck Neck: normal ROM Carotids: bilateral: upstroke normal Thyroid: bilateral: normal size - Respiratory Respiratory: left: rales (Predominantly Rales are present left side and lower lung field), negative: CTA - Cardiovascular Rhythm: regular Heart sounds: normal: S1, S2 - Gastrointestinal General gastrointestinal: normal bowel sounds, soft - Neurologic Neurologic: CNII-XII intact - Musculoskeletal Musculoskeletal: gait normal, generalized weakness, strength equal bilaterally - Psychiatric Psychiatric: A&O x's 3, appropriate affect, intact judgment & insight - Labs CBC & Chem 7: 05/29/19 06:14 05/29/19 06:14 Labs: Abnormal Lab Results - Last 24 Hours (Table) 06/01/19 06/01/19 06/01/19 Range/Units 11:21 16:50 19:52 POC Glucose (mg/dL) 167 H 142 H 164 H (75-99) mg/dL 06/02/19 Range/Units 06:52 POC Glucose (mg/dL) 167 H (75-99) mg/dL Assessment and Plan Assessment: Intractable cephalgia/headache Left-sided pneumonia community-acquired Chronic persistent asthma mild to moderate severity with acute exacerbation Chronic systolic heart failure Evidence of pulmonary hypertension by CT criteria however echocardiogram revealed ejection fraction only 20%, with severe LV dysfunction and global hypokinesia Chronic atrial fibrillation Likely sleep disorder breathing and sleep apnea Plan: Patient will need sleep study on outpatient setting Continue antibiotics Breathing treatment Increase activity as tolerated Diabetic control Maximize cardiac therapy Patient can be continued on bronchodilator as taking home which includes by mouth and Ventolin as needed Time with Patient: Greater than 30
[2019-06-02] MEDS: HYDROcodone/APAP 7.5-325MG 1 EACH TAB PO PRN ×3 (10:52→22:01)
[2019-06-02 11:47] LABS: Glucose,Whole Blood 179 mg/dL (75-99)
--- NOTE | 2019-06-02 14:54 | PN ---
PROGRESS NOTE DATE OF SERVICE: 06/02/2019 REASON FOR FOLLOWUP: Pneumonia and diarrhea. INTERVAL HISTORY: The patient is currently afebrile. The patient is feeling better. Still complaining of some cough which has been minimal and dry. No nausea, no vomiting. No abdominal pain, no diarrhea. PHYSICAL EXAMINATION: Blood pressure 95/51 with a pulse of 58, temperature 98, she is 99% on room air. General description is an elderly female, lying in bed in no distress. RESPIRATORY SYSTEM: Unlabored breathing, clear to auscultation, no wheeze, crackles. HEART: S1, S2. Regular rate and rhythm. ABDOMEN: Soft, no tenderness. LABS: No new labs have been obtained today. DIAGNOSTIC IMPRESSION AND PLAN: 1. Patient with pneumonia, possible atypical, currently on oral Levaquin to continue to finish a 7-day course of therapy. 2. Diarrhea antibiotic associated, clinically improved. Advised to continue with Questran and increase her yogurt intake. MMODL / IJN: [id number] /
[2019-06-02 16:47] LABS: Glucose,Whole Blood 255 mg/dL (75-99)
--- NOTE | 2019-06-02 16:52 | P.PN ---
Subjective Progress Note Date: 06/02/19 This is a 63-year-old female admitted with acute left-sided pneumonia, community-acquired, acute on chronic persistent asthma and multiple other medical issues. COVID-19 testing reporting negative. Contained on gentle IV fluid hydration, IV antibiotics, nebulized bronchodilators with significant clinical improvement. Fluctuating frontal headache, neurology consulted, evaluation pending. Patient will possibly be discharged home today in stable condition with guarded prognosis pending, evaluation, DC recommendations and clearance from neurology. 05/31/2019 evaluated by infectious disease and antibiotics adjusted. Legionella pending. Evaluated by neurology, workup in progress. Patient eager for discharge. Patient to be discharged home today in a stable condition with guarded prognosis pending neurology's clearance, final DC recommendations. 06/01/[address] reporting no acute intracranial abnormality. Interventional radiology unable to perform lumbar puncture for another 48 hours, Thursday at the soonest. Patient upset regarding being extended hospitalizaation. Patient will be discharged home today in stable condition with guarded prognosis pending neurology's clearance and recommended outpatient testing/DC recommendations. Attempted Flexeril for suspected pinched nerve in neck with no resolution of headache. Patient now prefers to stay and proceed with lumbar puncture on Thursday. Denies chest pain, palpitations or shortness of breath. 06/02/2019 frontal headache with periorbital pain improving on Fiorcet and Robaxin, as well as BiPAP. Scheduled for lumbar puncture tomorrow. Legionella not detected. Objective - Vital Signs Vital signs: Vital Signs Temp 97.7 F 06/02/19 14:36 Pulse 72 06/02/19 15:49 Resp 17 06/02/19 14:36 BP 119/68 06/02/19 14:36 Pulse Ox 96 06/02/19 14:36 Intake & Output 06/01/19 06/02/19 06/02/19 18:59 06:59 18:59 Weight 110.9 kg Other: Voiding Method Toilet # Voids 2 1 1 - Exam PHYSICAL EXAM: VITAL SIGNS: As above GENERAL: Laying in bed, no acute distress HEENT: Conjunctivae normal. eyes normal. Oral mucosa moist NECK: No JVD. No thyroid enlargement. No LNs CARDIOVASCULAR: S1, S2 regular.. No murmur RESPIRATION: Breath sounds diminished in the bases. No rhonchi, fine left b asilar crackles, no wheezing ABDOMEN: Soft, nontender . No guarding. no masses palpable. Bowel sounds heard. LEGS: No edema. no swelling PSYCHIATRY: Alert and oriented X3, mood and affect normal. NERVOUS SYSTEM: Cranial N 2-12 grossly normal. Moves all 4 limbs. No focal deficits. Strength and sensation grossly intact.. Skin: no rash - Labs CBC & Chem 7: 05/29/19 06:14 05/29/19 06:14 Labs: Abnormal Lab Results - Last 24 Hours (Table) 06/01/19 06/01/19 06/02/19 Range/Units 16:50 19:52 06:52 POC Glucose (mg/dL) 142 H 164 H 167 H (75-99) mg/dL 06/02/19 Range/Units 11:44 POC Glucose (mg/dL) 179 H (75-99) mg/dL Assessment and Plan Assessment: Acute left-sided pneumonia, community-acquired Acute on chronic persistent asthma, mild to moderate Frontal cephalgia, intractable, possibly related to the above, neuro workup in progress Chronic systolic CHF, EF 20-25% Pulmonary hypertension per CT severe global hypokinesis, severe LV dysfunction Dilated aortic root 4.0 cm Morbid obesity, BMI 40.7 Complex sleep apnea, secondary to chronic opioid use, obesity ,further outpatient workup Possible pseudotumor cerebra Plan: Continue on current medication regime ,monitoring and symptomatic treatment. Migraine management in place. Continue on aggressive pulmonary toileting including nebulized bronchodilators. Maintain antibiotics. Lumbar puncture scheduled for Thursday. Discharge home tomorrow once cleared by neurology. The impression and plan of care has been dictated as directed. : I performed a history and examination of this patient, discussed the same with the dictator. I agree with the dictator's note ,documented as a scribe. Any additional findings or plans will be noted.
[2019-06-02 20:46] LABS: Glucose,Whole Blood 148 mg/dL (75-99)
[2019-06-02] MEDS: ATORVASTATIN 40 MG TAB PO SCH (22:01)
[2019-06-02] MEDS: MONTELUKAST 10 MG TAB PO SCH (22:02)
[2019-06-02] MEDS: INSULIN DETEMIR (LEVEMIR) 100 UNIT/ML SYR SQ SCH (22:12)
[2019-06-03] MEDS: HYDROcodone/APAP 7.5-325MG 1 EACH TAB PO PRN ×2 (02:15→17:00)
[2019-06-03 06:53] LABS: Glucose,Whole Blood 164 mg/dL (75-99)
[2019-06-03 08:08] LABS: Basophils % (A) 0 %; Eosinophils # (A) 0.1 k/uL (0-0.7); Eosinophils % (A) 2 %; HCT 38.9 % (34.0-46.0); HGB 12.4 gm/dL (11.4-16.0); Lymphocytes # (A) 1.3 k/uL (1.0-4.8); Lymphocytes % (A) 22 %; MCH 29.4 pg (25.0-35.0); MCHC 31.9 g/dL (31.0-37.0); MCV 92.3 fL (80.0-100.0); Mean Platelet Volume 8.7; Monocytes # (A) 0.4 k/uL (0-1.0); Monocytes % (A) 6 %; Neutrophils % (A) 66 %; Platelet Count 108 k/uL (150-450); RBC 4.21 m/uL (3.80-5.40); RDW 15.6 % (11.5-15.5)
[2019-06-03 08:11] LABS: INR 1.1 (<1.2); Prothrombin Time 11.1 sec (9.0-12.0)
[2019-06-03 08:18] LABS: Calcium 9.3 mg/dL (8.4-10.2); Potassium 4.5 mmol/L (3.5-5.1)
[2019-06-03] MEDS: FLUTICASONE 110 MCG INHALER INHALATION SCH (08:57)
[2019-06-03] MEDS: INSULIN ASPART (NovoLOG) 100 UNIT/ML VIAL SQ SCH ×6 (08:57→17:01)
[2019-06-03] MEDS: IPRATROPIUM-ALBUTEROL 3 ML NEB INHALATION SCH ×3 (08:57→16:04)
[2019-06-03] MEDS: CHOLESTYRAMINE (WITH SUGAR) 4 GM PACKET PO SCH (08:58)
[2019-06-03] MEDS: DOCUSATE 100 MG CAP PO SCH (08:58)
[2019-06-03] MEDS: MAGNESIUM OXIDE 400 MG TAB PO SCH (08:58)
[2019-06-03] MEDS: FUROSEMIDE 20 MG TAB PO SCH (08:58)
[2019-06-03] MEDS: PANTOPRAZOLE 40 MG TABLET PO SCH (08:58)
[2019-06-03] MEDS: CYANOCOBALAMIN 500 MCG TAB PO SCH (08:58)
[2019-06-03] MEDS: METOPROLOL TARTRATE 25 MG TAB PO SCH (10:15)
[2019-06-03] MEDS: SPIRONOLACTONE 25 MG TAB PO SCH (10:16)
[2019-06-03] MEDS: BUTALB/APAP/CAFF 50-325-40MG TAB PO PRN (10:18)
[2019-06-03 10:30] VITALS: BP 102/66; TEMP 97.9
[2019-06-03 11:31] LABS: Glucose,Whole Blood 147 mg/dL (75-99)
--- NOTE | 2019-06-03 12:20 | FL ---
Procedure: Fluoroscopic-guided lumbar puncture. Indication: Pseudotumor cerebri, CSF fluid for evaluation. Primary Operators: Dr. Kay. Comparison: Previous films and radiographic studies were reviewed. Anesthesia: 1% lidocaine locally. Fluoro time used: 2.19 minutes. 8 fluoroscopic images saved Estimated Blood Loss: Minimal Final verification: Final verification was performed in the presence of the sleep lab technologist, faby pandey and attending physician. Procedure: The procedure was explained in full detail to the patient including risks and benefits from the proce dure. Informed, written and verbal consent was obtained from the patient prior to the procedure. All of the patient's questions and concerns were answered. The patient was placed prone on the fluoroscopy table. The skin over the L5-S1 interspace was prepped and draped in the usual sterile fashion. Local anesthesia was utilized using 1% Lidocaine subcutaneo usly. Access to the subarachnoid space was not obtained despite numerous attempts. Subsequently the L 4-L5 level was attempted with a only 2-gauge spinal needle. Return of serosanguineous fluid, likely t raumatic tap due to multiple attempts, was seen with questionable opening pressure of 8. However the patient experienced numbness of her feet and the examination was terminated. The patient was sat upri ght with much improvement in numbness of her feet. Last attempt was made at L4-L5 with fluoroscopic i mages demonstrating appropriate needle position however no CSF return was obtained. No samples were o btained to send to the laboratory for analysis. IMPRESSION: Unsuccessful fluoroscopically guided lumbar puncture at both the L5-S1 and L4-L5 levels as described above with possible opening pressure of 8.
[2019-06-03 16:07] VITALS: RESP 18
[2019-06-03 16:19] VITALS: PULSE 74
[2019-06-03 16:54] LABS: Glucose,Whole Blood 151 mg/dL (75-99)
--- NOTE | 2019-06-03 18:57 | P.DS ---
Providers Date of admission: 05/26/19 18:54 Expected date of discharge: 06/03/19 Attending physician: Vishal Snell Consults: 05/26/19 18:58 Consult Physician Urgent Consulting Provider: Tim Leonard Consult Reason/Comments: Chest pain Do you want consulting provider notified?: Yes 05/28/19 11:48 Consult Physician Routine Consulting Provider: Gordy Stock Consult Reason/Comments: interstitial pneumonia Do you want consulting provider notified?: Yes 05/29/19 18:17 Consult Physician Routine Consulting Provider: Kendy Yang Consult Reason/Comments: cap Do you want consulting provider notified?: Yes 05/30/19 10:32 Consult Physician Routine Consulting Provider: Sagrario Lombardi Consult Reason/Comments: headaches,dizziness Do you want consulting provider notified?: Yes Primary care physician: [facility] Course: Final Diagnoses: Acute left-sided pneumonia, community-acquired Acute on chronic persistent asthma, mild to moderate Frontal cephalgia, intractable, possibly related to the above, neuro workup in progress Chronic systolic CHF, EF 20-25% Pulmonary hypertension per CT severe global hypokinesis, severe LV dysfunction Dilated aortic root 4.0 cm Morbid obesity, BMI 40.7 Complex sleep apnea, secondary to chronic opioid use, obesity ,further outpatient workup Possible pseudotumor cerebri Acute on chronic renal failure, stage III Hospital course:This is a 63-year-old female admitted with acute left-sided pneumonia, community-acquired, acute on chronic persistent asthma and multiple other medical issues. COVID-19 testing reporting negative. Contained on gentle IV fluid hydration, IV antibiotics, nebulized bronchodilators with significant clinical improvement. Fluctuating frontal headache, neurology consulted, evaluation pending. Patient will possibly be discharged home today in stable condition with guarded prognosis pending, evaluation, DC recommendations and clearance from neurology. 05/31/2019 evaluated by infectious disease and antibiotics adjusted. Legionella pending. Evaluated by neurology, workup in progress. Patient eager for discharge. Patient to be discharged home today in a stable condition with guarded prognosis pending neurology's clearance, final DC recommendations. 06/01/[address] reporting no acute intracranial abnormality. Interventional radiology unable to perform lumbar puncture for another 48 hours, Thursday at the soonest. Patient upset regarding being extended hospitalizaation. Patient will be discharged home today in stable condition with guarded prognosis pending neurology's clearance and recommended outpatient testing/DC recommendations. Attempted Flexeril for suspected pinched nerve in neck with no resolution of headache. Patient now prefers to stay and proceed with lumbar puncture on Thursday. Denies chest pain, palpitations or shortness of breath. 06/02/2019 frontal headache with periorbital pain improving on Fiorcet and Robaxin, as well as BiPAP. Scheduled for lumbar puncture tomorrow. Legionella not detected. Lumbar puncture attempted, unsuccessful secondary to scar tissue. Patient will be discharged home today pending neurology's final clearance and DC recommendations. The impression and plan of care has been dictated as directed. : I performed a history and examination of this patient, discussed the same with the dictator. I agree with the dictator's note ,documented as a scribe. Any additional findings or plans will be noted. Patient Condition at Discharge: Stable Plan - Discharge Summary Discharge Rx Participant: Yes New Discharge Prescriptions: New Acetaminophen Tab [Tylenol] 650 mg PO Q4HR PRN tab PRN Reason: Fever And/ Or Pain Levofloxacin [Levaquin] 750 mg PO Q48H #5 tab Cholestyramine (with Sugar) [Questran Packet] 4 gm PO BID@1000,1800 #14 packet Continue Magnesium Oxide [Mag-Ox] 250 mg PO DAILY Insulin Detemir (Levemir) [Levemir] 35 unit SQ HS Cyanocobalamin [Vitamin B-12] 250 mcg PO DAILY Aspirin EC [Ecotrin Low Dose] 81 mg PO DAILY Semaglutide [Ozempic] 0.25 mg SQ TH Pantoprazole [Protonix] 40 mg PO DAILY Montelukast [Singulair] 10 mg PO HS Spironolactone [Aldactone] 12.5 mg PO DAILY Fluticasone/Vilanterol [Breo Ellipta 100-25 Mcg Inhaler] 1 puff INHALATION RT-DAILY HYDROcodone/APAP 7.5-325MG [Stirum 7.5-325] 1 tab PO Q4H PRN PRN Reason: Pain Metoprolol Tartrate [Lopressor] 25 mg PO BID Insulin Aspart [NovoLOG Flexpen] See Protocol SQ AC-TID Furosemide [Lasix] 20 mg PO DAILY Albuterol Sulfate [Albuterol Sulfate Hfa] 2 puff PO RT-Q4H PRN PRN Reason: Shortness Of Breath Albuterol Nebulized [Ventolin Nebulized] 2.5 mg INHALATION RT-Q6H PRN PRN Reason: Shortness Of Breath Ergocalciferol [Vitamin D2 (DRISDOL)] 50,000 unit PO Q30D Iron 25mg 25 mg PO NORRIS Beclomethasone Dip 80 Mcg/Puff [Qvar 80 mcg] 2 puff INHALATION RT-BID Atorvastatin [Lipitor] 40 mg PO HS Midodrine [ProAmatine] 5 mg PO AC-TID PRN PRN Reason: Blood Pressure - Low Insulin Aspart [NovoLOG Flexpen] 15 units SQ AC-BID #0 Insulin Aspart [NovoLOG Flexpen] 13 units SQ AC-BRKFST #0 Discharge Medication List Magnesium Oxide [Mag-Ox] 250 mg PO DAILY 05/06/14 [History] Insulin Detemir (Levemir) [Levemir] 35 unit SQ HS 11/17/14 [History] Cyanocobalamin [Vitamin B-12] 250 mcg PO DAILY 08/02/16 [History] Aspirin EC [Ecotrin Low Dose] 81 mg PO DAILY 11/02/18 [History] Fluticasone/Vilanterol [Breo Ellipta 100-25 Mcg Inhaler] 1 puff INHALATION RT- DAILY 11/02/18 [History] Montelukast [Singulair] 10 mg PO HS 11/02/18 [History] Pantoprazole [Protonix] 40 mg PO DAILY 11/02/18 [History] Semaglutide [Ozempic] 0.25 mg SQ TH 11/02/18 [History] Spironolactone [Aldactone] 12.5 mg PO DAILY 11/02/18 [History] Albuterol Sulfate [Albuterol Sulfate Hfa] 2 puff PO RT-Q4H PRN 01/14/19 [History] Furosemide [Lasix] 20 mg PO DAILY 01/14/19 [History] HYDROcodone/APAP 7.5-325MG [Stirum 7.5-325] 1 tab PO Q4H PRN 01/14/19 [History] Insulin Aspart [NovoLOG Flexpen] See Protocol SQ AC-TID 01/14/19 [History] Metoprolol Tartrate [Lopressor] 25 mg PO BID 01/14/19 [History] Albuterol Nebulized [Ventolin Nebulized] 2.5 mg INHALATION RT-Q6H PRN 02/18/19 [History] Atorvastatin [Lipitor] 40 mg PO HS 05/26/19 [History] Beclomethasone Dip 80 Mcg/Puff [Qvar 80 mcg] 2 puff INHALATION RT-BID 05/26/19 [History] Ergocalciferol [Vitamin D2 (DRISDOL)] 50,000 unit PO Q30D 05/26/19 [History] Iron 25mg 25 mg PO NORRIS 05/26/19 [History] Midodrine [ProAmatine] 5 mg PO AC-TID PRN 05/26/19 [History] Acetaminophen Tab [Tylenol] 650 mg PO Q4HR PRN tab 05/30/19 [Rx] Insulin Aspart [NovoLOG Flexpen] 13 units SQ AC-BRKFST #0 05/30/19 [Rx] Insulin Aspart [NovoLOG Flexpen] 15 units SQ AC-BID #0 05/30/19 [Rx] Cholestyramine (with Sugar) [Questran Packet] 4 gm PO BID@1000,1800 #14 packet 05/31/19 [Rx] Levofloxacin [Levaquin] 750 mg PO Q48H #5 tab 05/31/19 [Rx] Follow up Appointment(s)/Referral(s): Outpatient, procedures [Other] - 06/03/19 (Please call Dr. Snell's office tomorrow,June 01, to have office Schedule your Guided Lumbar Puncture for ThursdayJune 02. Thank you.) Russ Ling MD [STAFF PHYSICIAN] - 06/15/19 3:00 pm (already has appointment in place with Dr CELINA Ling. For a device check also) Machelle oBwer MD [STAFF PHYSICIAN] - 07/29/19 9:30 am Vishal Snell MD [Primary Care Provider] - 06/06/19 (Office Closed at time of discharge please call Thursday to make a same day appointment) Gordy Stock MD [STAFF PHYSICIAN] - 1 Week (Office will call patient to arrange appointment for when Dr Stock seeing patients again. ) Ambulatory/Diagnostic Orders: Complete Blood Count w/diff [LAB.AMB] Time Frame: 3 Days, Location: None Selected Patient Instructions/Handouts: Pneumonia (DC) Activity/Diet/Wound Care/Special Instructions: Potential pseudotumor cerebri, no diamox at this time r/t renal fx, repeat labs, with further rec. OP on Thursday with Dr. Snell OP DM education at Dr. Snell's office ( hgb a1c 9.2) DIet: COnsist. Carb
--- NOTE | 2019-06-03 18:57 | P.PN ---
Subjective Progress Note Date: 06/03/19 Principal diagnosis: Subjective: The patient had attempted lumbar puncture this morning to obtain an opening and closing pressure. Patient is being worked up for pseudotumor cereb ra. Unfortunately the patient was unable to tolerate the test and experienced acute onset of lower extremity weakness and numbness. This patient does have a history of back surgery with extensive scarring. Several attempts were made by interventional radiology but the study had to be aborted due to increasing numbness in the extremities. Currently the patient has been stable she reports her headache is on a low scale of 2-3 at this time. She reports sleeping much better through the night on the BiPAP ST and is looking forward to being further evaluated to use this type of device. Objective - Vital Signs Vital signs: Vital Signs Temp 97.9 F 06/03/19 10:12 Pulse 74 06/03/19 16:19 Resp 18 06/03/19 16:04 BP 102/66 06/03/19 10:12 Pulse Ox 96 06/03/19 10:12 Intake & Output 06/02/19 06/03/19 06/03/19 18:59 06:59 18:59 Intake Total 250 240 Balance 250 240 Intake: Oral 250 240 Other: # Voids 1 1 - Exam Examination deferred due to the patient undergoing LP. Otherwise patient is stable hemodynamically and presents with no neurological deficits. Patient is awake and alert oriented times place and person. Speech fluent. - Labs CBC & Chem 7: 06/03/19 07:38 06/03/19 07:38 Labs: Abnormal Lab Results - Last 24 Hours (Table) 06/02/19 06/03/19 06/03/19 Range/Units 20:45 06:52 07:38 RDW 15.6 H (11.5-15.5) % Plt Count 108 L (150-450) k/uL BUN (7-17) mg/dL Creatinine (0.52-1.04) mg/dL Glucose (74-99) mg/dL POC Glucose (mg/dL) 148 H 164 H (75-99) mg/dL 06/03/19 06/03/19 06/03/19 Range/Units 07:38 11:31 16:53 RDW (11.5-15.5) % Plt Count (150-450) k/uL BUN 34 H (7-17) mg/dL Creatinine 1.32 H (0.52-1.04) mg/dL Glucose 147 H (74-99) mg/dL POC Glucose (mg/dL) 147 H 151 H (75-99) mg/dL Assessment and Plan Assessment: This is a 63-year-old female with a Cane and past medical history for congestive heart failure, diabetes and obstructive sleep apnea, chronic neck pain and chronic headaches. Neurology was consulted to further evaluate her headache. Due to her history and body habitus she seems to be at increased risk for pseudotumor cerebra. Also in the differential one could consider possibly hemicrania continua and an even cluster headaches. An attempt at an LP was made this morning but due to her back surgery and scar tissue she could not tolerate this. Therefore the decision is made to give her an empiric trial on Diamox starting with a low dose up to 50 mg twice a day. This will be monitored and titrated either by her primary care physician or her outpatient neurologist who she follows for pain management. We also discussed the pain management neurologist role in helping her with headaches. She could be a good candidate for Botox in these trigger point areas that exacerbate her headache. Recommenations 1. Provide Diamox prescription for 250 mg by mouth twice a day to start. Taken with food. This is to be titrated slowly up to it possible to 250 mg 4 times a day. This should occur under the provision of her battery checker or neurologist. Patient is also been advised that treatment of pseudotumor involves a low-sodium diet with less than 1500 mg of sodium per day along with weight loss. 2. Patient has been advised to follow up with her pain neurologist also for headache management. She could be a good candidate for Botox to trigger points. 3. Patient has been advised to follow up with a formal sleep medicine physician to be further evaluated for complex sleep apnea. Thank you for this consult. Patient may be discharged home once cleared by medical team.
== END 2019-06-03 18:21 | disposition home or self-care (01) | DRG 194 ==
LOC: EC 16:30 → 3SCARD 18:54 → 4SSUR 05-29 17:42
PROVIDERS: ADMIT Family Medicine; ATTEND Family Medicine
PROC: 5A09457 Assistance with Respiratory Ventilation, 24-96 Consecutive Hours, Continuous Positive Airway Pressure (ICD-10-PCS; principal; 2019-05-30)
DX: J18.9 Pneumonia, unspecified organism (principal); Z68.41 Body mass index [BMI] 40.0-44.9, adult; I42.9 Cardiomyopathy, unspecified; I13.0 Hypertensive heart and chronic kidney disease with heart failure and stage 1 through stage 4 chronic kidney disease, or unspecified chronic kidney disease; I50.22 Chronic systolic (congestive) heart failure; J44.0 Chronic obstructive pulmonary disease with (acute) lower respiratory infection; K52.1 Toxic gastroenteritis and colitis; N17.9 Acute kidney failure, unspecified; I48.20 Chronic atrial fibrillation, unspecified; F11.20 Opioid dependence, uncomplicated; J45.41 Moderate persistent asthma with (acute) exacerbation; M19.90 Unspecified osteoarthritis, unspecified site; Z96.652 Presence of left artificial knee joint; E11.40 Type 2 diabetes mellitus with diabetic neuropathy, unspecified; E11.22 Type 2 diabetes mellitus with diabetic chronic kidney disease; E78.5 Hyperlipidemia, unspecified; G47.30 Sleep apnea, unspecified; I27.20 Pulmonary hypertension, unspecified; I25.10 Atherosclerotic heart disease of native coronary artery without angina pectoris; F32.9 Major depressive disorder, single episode, unspecified; F41.9 Anxiety disorder, unspecified; E66.01 Morbid (severe) obesity due to excess calories; I44.7 Left bundle-branch block, unspecified; G47.33 Obstructive sleep apnea (adult) (pediatric); T36.95XA Adverse effect of unspecified systemic antibiotic, initial encounter; I77.810 Thoracic aortic ectasia; N18.3 Chronic kidney disease, stage 3 (moderate); R51 Headache; Z20.828 Contact with and (suspected) exposure to other viral communicable diseases; G93.2 Benign intracranial hypertension; Z80.9 Family history of malignant neoplasm, unspecified; Z95.810 Presence of automatic (implantable) cardiac defibrillator; Z90.49 Acquired absence of other specified parts of digestive tract; Z98.891 History of uterine scar from previous surgery; Z98.890 Other specified postprocedural states; Z79.4 Long term (current) use of insulin; Z79.899 Other long term (current) drug therapy; Z79.82 Long term (current) use of aspirin; Z87.442 Personal history of urinary calculi; Z87.01 Personal history of pneumonia (recurrent); Z99.89 Dependence on other enabling machines and devices; Z90.710 Acquired absence of both cervix and uterus
CPT/HCPCS: 36415; 62328; 70450; 71046; 71275; 80048; 80053; 80061; 81001; 83036; 83605; 83735; 83880; 84439; 84443; 84480; 84484; 85025; 85379; 85610; 85652; 85730; 87324; 87449; 87502; 93005; 93306; 94640; 94660; 94760; 96360; 96361; 99285

== ENCOUNTER 2019-09-05 14:33 | Observation (INO) | payer MEDICARE, OTHER ==
[2019-09-05 16:49] LABS: Glucose,Whole Blood 269 mg/dL (75-99)
[2019-09-05 17:04] LABS: Albumin 3.8 g/dL (3.5-5.0); Calcium 9.5 mg/dL (8.4-10.2); Potassium 4.2 mmol/L (3.5-5.1); Total Bilirubin 0.9 mg/dL (0.2-1.3); Total Protein 5.8 g/dL (6.3-8.2)
--- NOTE | 2019-09-05 17:12 | XR ---
EXAMINATION TYPE: XR chest 2V DATE OF EXAM: 09/05/2019 COMPARISON: Prior chest x-ray 05/26/2019 HISTORY: Shortness of breath TECHNIQUE: Frontal and lateral views of the chest are obtained. FINDINGS: There is no focal air space opacity, pleural effusion, or pneumothorax seen. The cardiac silhouette size is stable. Generators present in left pectoral region, intracardiac defibrillator l ead in the right ventricle. Patient is rotated, there may be spinal curvature. Aorta appears ectatic. The osseous structures are intact. Prominence of pulmonary artery may be indicative of pulmonary art cipriano hypertension. IMPRESSION: No acute cardiopulmonary process. Additional findings above.
[2019-09-05] MEDS: INSULIN ASPART (NovoLOG) 100 UNIT/ML VIAL SQ SCH ×3 (17:20→21:27)
[2019-09-05] MEDS: carvediloL 12.5 MG TAB PO SCH (17:20)
[2019-09-05] MEDS: MIDODRINE 5 MG TAB PO SCH (17:55)
[2019-09-05] MEDS: MECLIZINE 12.5 MG TAB PO SCH (17:55)
[2019-09-05 18:30] LABS: Anisocytosis Slight; Basophils % (A) 0 %; Eosinophils # (A) 0.1 k/uL (0-0.7); Eosinophils % (A) 2 %; HCT 36.3 % (34.0-46.0); HGB 11.8 gm/dL (11.4-16.0); Hypochromasia Slight; Lymphocytes # (A) 1.1 k/uL (1.0-4.8); Lymphocytes % (A) 19 %; MCHC 32.6 g/dL (31.0-37.0); MCV 98.4 fL (80.0-100.0); Macrocytosis Slight; Mean Platelet Volume 8.9; Monocytes # (A) 0.4 k/uL (0-1.0); Monocytes % (A) 7 %; Neutrophils # (A) 4.2 k/uL (1.3-7.7); Neutrophils % (A) 72 %; Platelet Count 103 k/uL (150-450); Poikilocytosis Slight; RBC 3.69 m/uL (3.80-5.40); RDW 17.2 % (11.5-15.5); WBC 5.9 k/uL (3.8-10.6)
[2019-09-05] MEDS: ALBUTEROL NEBULIZED 2.5 MG/3 ML INHALATION PRN (19:50)
[2019-09-05] MEDS ORDERED: tiZANidine 4 MG TAB PO SCH (21:00)
[2019-09-05] MEDS ORDERED: MONTELUKAST 10 MG TAB PO SCH (21:00)
[2019-09-05] MEDS ORDERED: ATORVASTATIN 20 MG TAB PO SCH (21:00)
[2019-09-05] MEDS ORDERED: INSULIN DETEMIR (LEVEMIR) 100 UNIT/ML SYR SQ SCH (21:00)
[2019-09-05] MEDS ORDERED: TOPIRAMATE 25 MG TAB PO SCH (21:00)
[2019-09-05] MEDS: HYDROcodone/APAP 7.5-325MG 1 EACH TAB PO PRN (21:18)
[2019-09-05] MEDS: MAGNESIUM OXIDE 400 MG TAB PO SCH (21:21)
[2019-09-05 21:28] LABS: Glucose,Whole Blood 113 mg/dL (75-99)
--- NOTE | 2019-09-06 00:09 | CT ---
EXAMINATION TYPE: CT brain wo con DATE OF EXAM: 09/06/2019 COMPARISON: 05/30/2019 HISTORY: syncope CT DLP: 1156.4 mGycm Automated exposure control for dose reduction was used. Ventricles have normal size. There is no mass effect nor midline shift. There is no sign of intracran ial hemorrhage. There is extensive hyperostosis frontalis. Sella turcica appears normal. The skull ba se is intact. There is 2 cm mucous retention cyst left maxillary sinus. IMPRESSION: No acute intracranial abnormality. No change.
[2019-09-06] MEDS: MECLIZINE 12.5 MG TAB PO SCH ×3 (01:23→16:14)
[2019-09-06] MEDS ORDERED: MIDODRINE 5 MG TAB PO ONE (01:34)
[2019-09-06 07:04] LABS: Glucose,Whole Blood 154 mg/dL (75-99)
[2019-09-06] MEDS ORDERED: INSULIN ASPART (NovoLOG) 100 UNIT/ML VIAL SQ SCH (07:30)
[2019-09-06] MEDS: ALBUTEROL NEBULIZED 2.5 MG/3 ML INHALATION PRN ×3 (08:05→15:26)
[2019-09-06] MEDS: MAGNESIUM OXIDE 400 MG TAB PO SCH (08:13)
[2019-09-06] MEDS: MIDODRINE 5 MG TAB PO SCH ×3 (08:13→18:12)
[2019-09-06] MEDS: INSULIN ASPART (NovoLOG) 100 UNIT/ML VIAL SQ SCH ×5 (08:15→18:12)
[2019-09-06] MEDS ORDERED: CYANOCOBALAMIN 500 MCG TAB PO SCH (09:00)
[2019-09-06] MEDS ORDERED: ASPIRIN 81 MG PO SCH (09:00)
[2019-09-06] MEDS ORDERED: DOCUSATE 100 MG CAP PO SCH (09:00)
[2019-09-06] MEDS ORDERED: SPIRONOLACTONE 25 MG TAB PO SCH (09:00)
[2019-09-06] MEDS ORDERED: FUROSEMIDE 10 MG TAB PO SCH (09:00)
[2019-09-06] MEDS ORDERED: LOSARTAN 25 MG TAB PO SCH (09:00)
[2019-09-06] MEDS: carvediloL 12.5 MG TAB PO SCH (10:09)
[2019-09-06 11:48] LABS: Glucose,Whole Blood 155 mg/dL (75-99)
--- NOTE | 2019-09-06 12:25 | P.CRDCN ---
History of Present Illness History of present illness: HISTORY OF PRESENTING ILLNESS This is a pleasant 63-year-old female past medical history significant for nonischemic idiopathic cardiomyopathy status post AICD, diabetes mellitus, hypertension and dyslipidemia. She follows in the office with Dr. Ling. We have been asked to see in consultation for syncope. She states for the previous 3 months she has been experiencing headaches, dizziness described as the room spinning and palpitations. Her dizziness is worse when she changes positions. Blood pressures have been running low since admission, however when changing positions her pressures increase. She denies chest pain, nausea, vomiting or diaphoresis. She recently underwent cardiac workup including Lexiscan stress test and echocardiogram. The Lexiscan stress test was read as abnormal with a small reversible defect however she underwent cardiac catheterization in 2019 that was negative for significant obstructive coronary artery disease. She has chronic systolic heart failure. Recent echocardiogram obtained in 05/27/2019 revealed global LV hypokinesia with ejection fraction 20-25% and mild MR. DIAGNOSTICS EKG reveals left bundle branch block. Chest xray negative for an acute cardiopulmonary process. Brain CT is negative for an acute intracranial abnormality. Laboratory reviewed, WBC 5.9, hemoglobin 11.8, platelets 103, sodium 139, potassium 4.2, creatinine 1.13 with a GFR of 52. Current cardiac medications include aspirin 81 mg daily, atorvastatin 20 mg at bedtime, carvedilol 12.5 mg twice a day, Lasix 10 mg daily, losartan 12.5 mg daily, Aldactone 12.5 mg daily and Antivert 3 times a day. REVIEW OF SYSTEMS At the time of my exam: CONSTITUTIONAL: Denies fever or chills. CARDIOVASCULAR: Denies chest pain, shortness of breath, orthopnea, PND or p alpitations. RESPIRATORY: Denies cough. GASTROINTESTINAL: Denies abdominal pain, diarrhea, constipation, nausea or vomiting. MUSCULOSKELETAL: Denies myalgias. NEUROLOGIC: Denies numbness, tingling or weakness. ENDOCRINE: Denies fatigue, weight change, polydipsia or polyurina. GENITOURINARY: Denies burning, hematuria or urgency with micturation. HEMATOLOGIC: Denies history of anemia or bleeding. PHYSICAL EXAMINATION Standing blood pressure 110/69 heart rate 87 afebrile and maintaining oxygen saturation on room air. CONSTITUTIONAL: No apparent distress. HEENT: Head is normocephalic. Pupils are equal, round. Sclerae anicteric. Mucous membranes of the mouth are moist. No JVD. No carotid bruit. CHEST EXAMINATION: Lungs are clear to auscultation. No chest wall tenderness is noted on palpation or with deep breathing. HEART EXAMINATION: Regular rate and rhythm. S1, S2 heard. No murmurs, gallops or rub. ABDOMEN: Soft, nontender. Positive bowel sounds. EXTREMITIES: 2+ peripheral pulses, no lower extremity edema and no calf tenderness. NEUROLOGIC EXAMINATION: Patient is awake, alert and oriented x3. ASSESSMENT Dizziness suggestive of vertigo Hypotension Nonischemic cardiomyopathy status post AICD Diabetes mellitus History of hypertension Dyslipidemia PLAN Hold carvedilol and losartan secondary to hypotension. Ongoing telemetry monitoring. Apply bilateral CHADD hose. Repeat BMP in the morning. Thank you kindly for this consultation. Nurse Practitioner note has been reviewed, I agree with a documented findings and plan of care. Patient was seen and examined. Past Medical History Past Medical History: Atrial Fibrillation, Asthma, Coronary Artery Disease (CAD), Chest Pain / Angina, Heart Failure, Diabetes Mellitus, Hyperlipidemia, Hy pertension, Musculoskeletal Disorder, Osteoarthritis (OA), Pneumonia, Renal Disease, Sleep Apnea/CPAP/BIPAP Additional Past Medical History / Comment(s): Arrhythmia, Afib-Converted with ablation 05/2013, Cardiomyopathy,DDD, Diabetic Neuropathy, Edema, Scoliosis,Anemia, KIDNEY STONES. History of Any Multi-Drug Resistant Organisms: None Reported Past Surgical History: Ablation, AICD, Back Surgery, Cardiac Ablation, Section, Cholecystectomy, Heart Catheterization, Hysterectomy, Joint Replacement, Orthopedic Surgery, Pacemaker Additional Past Surgical History / Comment(s): Varicose Vein Stripping,Rt Knee scope, D & C, Colonoscopy, Lithotripsy, Removal of kidney stones,LT TOTAL KNEE REPLACEMENT, Major back surgery 11/13/2018 in [facility], "Fusion and stenosis taken care of as well as spurs removed". Past Anesthesia/Blood Transfusion Reactions: No Reported Reaction Additional Past Anesthesia/Blood Transfusion Reaction / Comment(s): HAS HAD NO PROBLEMS WITH PRIOR BLOOD TRANSFUSIONS Type of Cardiac Device: Permanent Pacemaker, AICD Device Placement Date:: 03/14/2011-Metronic LT CHEST Past Psychological History: Anxiety, Depression Additional Psychological History / Comment(s): . She is on disability. She has no experience. She has no travel history. She is a lifelong nonsmoker. No history of recreational drug use. No history of alcohol use. No animals in the home at this time. Smoking Status: Never smoker Past Alcohol Use History: None Reported Past Drug Use History: None Reported - Past Family History Father Family Medical History: Cancer Brother(s) Family Medical History: Cancer Sister(s) Family Medical History: Cancer Mother Family Medical History: Cancer Medications and Allergies Home Medications Medication Instructions Recorded Confirmed Type Magnesium Oxide [Mag-Ox] 500 mg PO BID 05/06/14 09/05/19 History Cyanocobalamin [Vitamin B-12] 250 mcg PO DAILY 08/02/16 09/05/19 History Aspirin EC [Ecotrin Low Dose] 81 mg PO DAILY 11/02/18 09/05/19 History Fluticasone/Vilanterol [Breo 1 puff INHALATION RT-DAILY 11/02/18 09/05/19 History Ellipta 100-25 Mcg Inhaler] Montelukast [Singulair] 10 mg PO HS 11/02/18 09/05/19 History Semaglutide [Ozempic] 0.25 mg SQ TH 11/02/18 09/05/19 History Spironolactone [Aldactone] 12.5 mg PO DAILY 11/02/18 09/05/19 History Albuterol Sulfate [Albuterol 2 puff INHALATION RT-QID 01/14/19 09/05/19 History Sulfate Hfa] Furosemide [Lasix] 10 mg PO DAILY 01/14/19 09/05/19 History HYDROcodone/APAP 7.5-325MG [Mineral 1 tab PO BID PRN 01/14/19 09/05/19 History 7.5-325] Insulin Aspart [NovoLOG Flexpen] See Protocol SQ AC-TID 01/14/19 09/05/19 Histor y Albuterol Nebulized [Ventolin 2.5 mg INHALATION RT-QID PRN 02/18/19 09/05/19 History Nebulized] Ergocalciferol [Vitamin D2 50,000 unit PO Q30D 05/26/19 09/05/19 History (DRISDOL)] Insulin Aspart [NovoLOG Flexpen] 13 units SQ AC-BRKFST #0 05/30/19 09/05/19 Rx Atorvastatin [Lipitor] 20 mg PO HS 09/05/19 09/05/19 History Carvedilol [Coreg] 12.5 mg PO BID 09/05/19 09/05/19 History Docusate [Colace] 100 mg PO Q48H 09/05/19 09/05/19 History Fluticasone Propionate [Flovent 2 puff INHALATION RT-BID 09/05/19 09/05/19 History Hfa 220 mcg] Insulin Aspart [NovoLOG Flexpen] 15 units SQ AC-BID@1200,1800 09/05/19 09/05/19 History Insulin Detemir [Levemir Flextouch] 36 units SQ HS 09/05/19 09/05/19 History Iron 28mg 1 tab PO NORRIS 09/05/19 09/05/19 History Losartan [Cozaar] 12.5 mg PO DAILY 09/05/19 09/05/19 History Meclizine [Antivert] 12.5 mg PO Q8H 09/05/19 09/05/19 History Topiramate [Topamax] 50 mg PO HS 09/05/19 09/05/19 History tiZANidine [Zanaflex] 4 mg PO HS 09/05/19 09/05/19 History Allergies Allergy/AdvReac Type Severity Reaction Status Date / Time No Known Allergies Allergy Verified 09/05/19 15:59 Physical Exam Vitals: Vital Signs Temp Pulse Pulse Pulse Pulse Pulse Resp 09/06/19 07:34 97.7 F 69 87 63 16 09/06/19 04:16 97.6 F 66 14 09/06/19 00:57 09/06/19 00:24 97.5 F L 62 14 09/05/19 20:03 65 09/05/19 19:51 65 09/05/19 19:39 98.4 F 65 16 09/05/19 15:05 98.3 F 81 14 BP BP BP BP BP Pulse Ox 09/06/19 07:34 119/76 110/69 101/59 96 09/06/19 04:16 95/61 09/06/19 00:57 87/51 99/65 62/31 09/06/19 00:24 70/44 97 09/05/19 20:03 09/05/19 19:51 09/05/19 19:39 104/64 94 L 09/05/19 15:05 123/77 122/72 94 L Intake and Output 09/05/19 09/06/19 09/06/19 22:59 06:59 14:59 Intake Total 590 Balance 590 Intake: Oral 590 Other: Voiding Method Toilet Weight 107.7 kg Results 09/05/19 16:38 09/05/19 16:38 Cardiac Enzymes 09/05/19 09/05/19 Range/Units 16:38 16:38 AST 31 (14-36) U/L Troponin I <0.012 (0.000-0.034) ng/mL CBC 09/05/19 Range/Units 16:38 WBC 5.9 (3.8-10.6) k/uL RBC 3.69 L (3.80-5.40) m/uL Hgb 11.8 (11.4-16.0) gm/dL Hct 36.3 (34.0-46.0) % Plt Count 103 L (150-450) k/uL Comprehensive Metabolic Panel 09/05/19 Range/Units 16:38 Sodium 139 (137-145) mmol/L Potassium 4.2 (3.5-5.1) mmol/L Chloride 108 H (98-107) mmol/L Carbon Dioxide 23 (22-30) mmol/L BUN 24 H (7-17) mg/dL Creatinine 1.13 H (0.52-1.04) mg/dL Glucose 265 H (74-99) mg/dL Calcium 9.5 (8.4-10.2) mg/dL AST 31 (14-36) U/L ALT 23 (4-34) U/L Alkaline Phosphatase 120 (38-126) U/L Total Protein 5.8 L (6.3-8.2) g/dL Albumin 3.8 (3.5-5.0) g/dL Current Medications Generic Name Dose Route Start Last Admin Trade Name Freq PRN Reason Stop Dose Admin Hydrocodone Bitart/Acetaminophen 1 each 09/05/19 16:35 09/05/19 21:18 Mineral 7.5-325 PO 1 each BID PRN Administration Pain Albuterol Sulfate 2.5 mg 09/05/19 16:35 09/05/19 19:50 Ventolin Nebulized INHALATION 2.5 mg RT-QID PRN Administration Shortness Of Breath Aspirin 81 mg 09/06/19 09:00 Aspirin PO DAILY BIN Atorvastatin Calcium 20 mg 09/05/19 21:00 09/05/19 21:21 Lipitor PO 20 mg HS BIN Administration Cyanocobalamin 250 mcg 09/06/19 09:00 Vitamin B-12 PO DAILY [facility] Docusate Sodium 100 mg 09/06/19 09:00 Colace PO Q48H [facility] Ferrous Sulfate 325 mg 09/11/19 12:00 Feosol PO NORRIS [facility] Furosemide 10 mg 09/06/19 09:00 Lasix PO DAILY [facility] Insulin Aspart 13 unit 09/06/19 07:30 Novolog SQ AC-BRKFST BIN Insulin Aspart 15 unit 09/05/19 18:00 09/05/19 17:20 Novolog SQ 15 unit AC-BID@1200,1800 BIN Administration Insulin Aspart 0 unit 09/05/19 17:30 09/05/19 21:27 Novolog SQ Not Given ACHS [facility] Protocol Insulin Detemir 36 unit 09/05/19 21:00 09/05/19 21:28 Levemir SQ 36 unit HS BIN Administration Magnesium Oxide 400 mg 09/05/19 21:00 09/05/19 21:21 Mag-Ox PO 400 mg BID BIN Administration Meclizine HCl 12.5 mg 09/05/19 16:00 09/06/19 01:23 Antivert PO 12.5 mg Q8H BIN Administration Midodrine 2.5 mg 09/05/19 17:30 09/05/19 17:55 Proamatine PO 2.5 mg AC-TID BIN Administration Montelukast Sodium 10 mg 09/05/19 21:00 09/05/19 21:21 Singulair PO 10 mg HS BIN Administration Spironolactone 12.5 mg 09/06/19 09:00 Aldactone PO DAILY [facility] Tizanidine HCl 4 mg 09/05/19 21:00 09/05/19 21:54 Zanaflex PO 4 mg HS BIN Administration Topiramate 50 mg 09/05/19 21:00 09/05/19 21:21 Topamax PO 50 mg HS BIN Administration Intake and Output 09/05/19 09/06/19 09/06/19 22:59 06:59 14:59 Intake Total 590 Balance 590 Intake: Oral 590 Other: Voiding Method Toilet Weight 107.7 kg 09/05/19 16:38 09/05/19 16:38
[2019-09-06 12:29] VITALS: RESP 16
[2019-09-06] MEDS: HYDROcodone/APAP 7.5-325MG 1 EACH TAB PO PRN (12:36)
--- NOTE | 2019-09-06 12:39 | P.CNNES ---
History of Present Illness Consult date: 09/06/19 Requesting physician: Vishal Snell Reason for Consult: Syncope History of Present Illness: Patient is a 63-year-old female who came to the hospital because of vertigo, lightheadedness, dizziness. Patient states that for the last 2 months when she moves her head, the room spins. It lasts for 1-2 minutes. She would be sitting in the chair and when she gets up, gets lightheaded. When she gets out of bed, had to wait otherwise gets lightheaded. Patient also states that when she rolls over in the bed, it makes her dizzy, and the room spins. It can be on either side. Patient also has sleep apnea and getting a BiPAP machine. She was told that she had 70 spells of apnea per hour. She has not been set up with CPAP machine yet. Patient denies any focal symptoms. CT head showed no acute process. There is 2 cm mucous retention cyst left maxillary sinus. Chest x-ray showed no acute cardio per process. Defibrillator present. Patient had a 2-D echo on 05/27/2019, which revealed pacemaker. Left ventricle is mildly dilated. Mild concentric LVH. Severe global hypokinesis of left ventricle. EF is between 20-25%. Left atrial is mildly dilated. Patient's blood test shows WBC 5.9 hemoglobin 11.8, platelets 103. BUN 24 creatinine 1.13. Liver panel normal. Hemoglobin A1c 9.2 on 05/28/2019. TSH and free T4 normal on 05/31/2019. Patient has history of headaches, for which she has been started on Topamax 50 mg daily since May 2019. Patient also has CHF. She denies any tobacco or alcohol. Review of Systems As mentioned in HPI in detail. All other review of systems completely unremarkable. Past Medical History Past Medical History: Atrial Fibrillation, Asthma, Coronary Artery Disease (CAD), Chest Pain / Angina, Heart Failure, Diabetes Mellitus, Hyperlipidemia, Hypertension, Musculoskeletal Disorder, Osteoarthritis (OA), Pneumonia, Renal Disease, Sleep Apnea/CPAP/BIPAP Additional Past Medical History / Comment(s): Arrhythmia, Afib-Converted with ablation 05/2013, Cardiomyopathy,DDD, Diabetic Neuropathy, Edema, Scoliosis,Anemia, KIDNEY STONES. History of Any Multi-Drug Resistant Organisms: None Reported Past Surgical History: Ablation, AICD, Back Surgery, Cardiac Ablation, Section, Cholecystectomy, Heart Catheterization, Hysterectomy, Joint Replacement, Orthopedic Surgery, Pacemaker Additional Past Surgical History / Comment(s): Varicose Vein Stripping,Rt Knee scope, D & C, Colonoscopy, Lithotripsy, Removal of kidney stones,LT TOTAL KNEE REPLACEMENT, Major back surgery 11/13/2018 in [facility], "Fusion and stenosis taken care of as well as spurs removed". Past Anesthesia/Blood Transfusion Reactions: No Reported Reaction Additional Past Anesthesia/Blood Transfusion Reaction / Comment(s): HAS HAD NO PROBLEMS WITH PRIOR BLOOD TRANSFUSIONS Type of Cardiac Device: Permanent Pacemaker, AICD Device Placement Date:: 03/14/2011-Metronic LT CHEST Past Psychological History: Anxiety, Depression Additional Psychological History / Comment(s): . She is on disability. She has no experience. She has no travel history. She is a lifelong nonsmoker. No history of recreational drug use. No history of alcohol use. No animals in the home at this time. Smoking Status: Never smoker Past Alcohol Use History: None Reported Past Drug Use History: None Reported - Past Family History Father Family Medical History: Cancer Brother(s) Family Medical History: Cancer Sister(s) Family Medical History: Cancer Mother Family Medical History: Cancer Medications and Allergies Home Medications Medication Instructions Recorded Confirmed Type Magnesium Oxide [Mag-Ox] 500 mg PO BID 05/06/14 09/05/19 History Cyanocobalamin [Vitamin B-12] 250 mcg PO DAILY 08/02/16 09/05/19 History Aspirin EC [Ecotrin Low Dose] 81 mg PO DAILY 11/02/18 09/05/19 History Fluticasone/Vilanterol [Breo 1 puff INHALATION RT-DAILY 11/02/18 09/05/19 History Ellipta 100-25 Mcg Inhaler] Montelukast [Singulair] 10 mg PO HS 11/02/18 09/05/19 History Semaglutide [Ozempic] 0.25 mg SQ TH 11/02/18 09/05/19 History Spironolactone [Aldactone] 12.5 mg PO DAILY 11/02/18 09/05/19 History Albuterol Sulfate [Albuterol 2 puff INHALATION RT-QID 01/14/19 09/05/19 History Sulfate Hfa] Furosemide [Lasix] 10 mg PO DAILY 01/14/19 09/05/19 History HYDROcodone/APAP 7.5-325MG [Kyle 1 tab PO BID PRN 01/14/19 09/05/19 History 7.5-325] Insulin Aspart [NovoLOG Flexpen] See Protocol SQ AC-TID 01/14/19 09/05/19 History Albuterol Nebulized [Ventolin 2.5 mg INHALATION RT-QID PRN 02/18/19 09/05/19 History Nebulized] Ergocalciferol [Vitamin D2 50,000 unit PO Q30D 05/26/19 09/05/19 History (DRISDOL)] Insulin Aspart [NovoLOG Flexpen] 13 units SQ AC-BRKFST #0 05/30/19 09/05/19 Rx Atorvastatin [Lipitor] 20 mg PO HS 09/05/19 09/05/19 History Carvedilol [Coreg] 12.5 mg PO BID 09/05/19 09/05/19 History Docusate [Colace] 100 mg PO Q48H 09/05/19 09/05/19 History Fluticasone Propionate [Flovent 2 puff INHALATION RT-BID 09/05/19 09/05/19 History Hfa 220 mcg] Insulin Aspart [NovoLOG Flexpen] 15 units SQ AC-BID@1200,1800 09/05/19 09/05/19 History Insulin Detemir [Levemir Flextouch] 36 units SQ HS 09/05/19 09/05/19 History Iron 28mg 1 tab PO NORRIS 09/05/19 09/05/19 History Losartan [Cozaar] 12.5 mg PO DAILY 09/05/19 09/05/19 History Meclizine [Antivert] 12.5 mg PO Q8H 09/05/19 09/05/19 History Topiramate [Topamax] 50 mg PO HS 09/05/19 09/05/19 History tiZANidine [Zanaflex] 4 mg PO HS 09/05/19 09/05/19 History Allergies Allergy/AdvReac Type Severity Reaction Status Date / Time No Known Allergies Allergy Verified 09/05/19 15:59 Physical Examination - Vital Signs Vital Signs: Vital Signs Temp Pulse Pulse Pulse Pulse Pulse Resp 09/06/19 08:18 64 09/06/19 08:05 62 16 09/06/19 07:34 97.7 F 69 87 63 16 09/06/19 04:16 97.6 F 66 14 09/06/19 00:57 09/06/19 00:24 97.5 F L 62 14 09/05/19 20:03 65 09/05/19 19:51 65 09/05/19 19:39 98.4 F 65 16 09/05/19 15:05 98.3 F 81 14 BP BP BP BP BP Pulse Ox 09/06/19 08:18 09/06/19 08:05 09/06/19 07:34 119/76 110/69 101/59 96 09/06/19 04:16 95/61 09/06/19 00:57 87/51 99/65 62/31 09/06/19 00:24 70/44 97 09/05/19 20:03 09/05/19 19:51 09/05/19 19:39 104/64 94 L 09/05/19 15:05 123/77 122/72 94 L Intake and Output 09/05/19 09/06/19 09/06/19 22:59 06:59 14:59 Intake Total 590 Balance 590 Intake: Oral 590 Other: Voiding Method Toilet Weight 107.7 kg On examination, patient is a late middle aged female, in no acute distress. Patient is alert awake oriented to time place and person. Speech and language functions are normal. Attention and concentration fund of knowledge is adequate. On cranial examination pupils are round and reactive to light. Visual ramos are full on confrontation. Extraocular muscles are intact with no nystagmus. Face is symmetric, tongue protrudes the midline. Palatal elevation sensation normal. Hearing and shoulder shrug normal. On muscle strength testing there is no pronator drift and the strength is normal in arms and legs distally and proximally reflexes are 1+ and plantars downgoing. Sensory touch is equal. No ataxia for [id number] testing. Tone and bulk of muscles normal. Gait deferred. There is no obvious bruit, S1-S2 audible. Peripheral pulses present. Chest is clear. Abdomen soft nontender. Results - Laboratory Findings CBC and BMP: 09/05/19 16:38 09/05/19 16:38 Abnormal Lab Findings: Abnormal Labs 09/05/19 09/05/19 09/05/19 16:38 16:38 16:43 RBC 3.69 L RDW 17.2 H Plt Count 103 L Chloride 108 H BUN 24 H Creatinine 1.13 H Glucose 265 H POC Glucose (mg/dL) 269 H Total Protein 5.8 L 09/05/19 09/06/19 21:26 07:02 RBC RDW Plt Count Chloride BUN Creatinine Glucose POC Glucose (mg/dL) 113 H 154 H Total Protein Assessment and Plan Assessment: * 63-year-old female admitted with symptoms of orthostatic hypotension. Her orthostasis is likely related to side effects of cardiotropic medication, and also related to possible significant CHF with low ejection fraction. * Positional vertigo, suggestive of possible BPPV. * Migraine headaches. * Hypertension * Diabetes * CHF Plan: * We will check carotid Doppler to rule out carotid stenosis. * B12, folate. TSH recently checked was normal. * Patient's orthostasis is likely related to possible medication side effects (Coreg), versus related to CHF. She has to be careful and slow before she gets up to prevent orthostasis. * Patient also has symptoms of possible BPPV. Suggest vestibular rehabilitation as an outpatient. Patient also has a large mucus retention cyst in the left maxillary sinus. Consider ENT evaluation, as an outpatient. * Neurologically clear for discharge if above test comes back negative.
--- NOTE | 2019-09-06 13:50 | US ---
EXAMINATION TYPE: US carotid duplex BILAT DATE OF EXAM: 09/06/2019 COMPARISON: NONE CLINICAL HISTORY: Dizziness, vertigo. Near Syncopal episode per patient; pacemaker EXAM MEASUREMENTS: RIGHT: Peak Systolic Velocity (PSV) cm/sec ----- Right CCA: 32.8 ----- Right ICA: 48.5 ----- Right ECA: 31.1 ICA/CCA ratio: 1.5 RIGHT: End Diastole cm/sec ----- Right CCA: 0.0 ----- Right ICA: 9.2 ----- Right ECA: 0.0 LEFT: Peak Systolic Velocity (PSV) cm/sec ----- Left CCA: 28.4 ----- Left ICA: 78.1 ----- Left ECA: 35.3 ICA/CCA ratio: 2.7 LEFT: End Diastole cm/sec ----- Left CCA: 0.0 ----- Left ICA: 22.8 ----- Left ECA: 15.9 VERTEBRALS (direction of flow): Right Vertebral: Antegrade Left Vertebral: Abnormal Monophasic Arterial Doppler signal; antegrade Rhythm: Arrhythmia Mild intimal wall thickening is noted at bilateral carotid bifurcation, but PSV is wnl . Incidental f indings are noted of bilateral thyroid nodules. Low cardiac output is noted as PSV is decreased throughout bilateral carotid systems, especially in b ilateral ICA. IMPRESSION: 1. Intimal thickening with bilateral thyroid nodules. Findings suggest approximately 50-69% stenosis involving the proximal left ICA. However, there is a low velocities within the internal carotid arter y system which could affect the degree of stenosis and therefore CTA of the carotid arteries recommen ded. 2. Cardiac dysrhythmia Criteria for Assigning % of Stenosis / Diameter reduction (Estimation based on the indirect measurements of the internal carotid artery velocities (ICA PSV). 1. Normal (no stenosis)=ICA PSV < 125 cm/s: ratio < 2.0: ICA EDV<40 cm/s. 2. Less than 50% stenosis=ICA PSV < 125 cm/s: ratio < 2.0: ICA EDV<40 cm/s. 3. 50 to 69% stenosis=ICA PSV of 125 to 230 cm/s: ration 2.0 ? 4.0: ICA EDV 40-100 cm/s. 4. Greater than 70% stenosis to near occlusion= ICA PSV > 230 cm/s: ratio > 4.0: ICA EDV > 100 cm/s. 5. Near occlusion= ICA PSV velocities may be low or undetectable: variable ratio and ICA EDV. 6. Total occlusion=unable to detect flow.
--- NOTE | 2019-09-06 14:25 | HP ---
HISTORY AND PHYSICAL A 63-year-old white female who came in with orthostatic hypotension, unstable on her feet wobbling back and forth with any ambulation, blood pressure 85-90 systolic, admitted over 24 hours to monitor for these static changes and started her on midodrine which has been given overnight. Her blood pressures resumed to be much better overnight. CAT scan of the brain was negative for any neurologic findings. Labs were essentially nonsignificant for any neurologic changes, such as maybe a little dehydrated. BUN 24, creatinine 1.13. Sugars are 100s to 200s HOME MEDS: Albuterol 2.5 q.4 hours p.r.n., aspirin 81 mg daily, Lipitor 20 mg daily, senna, B12 daily, Colace 100 q.48 hours, ferrous sulfate 325 daily, Lasix 10 mg daily, [place]on 7.5 b.i.d., NovoLog 13 units subcu a.c. breakfast and Levemir 36 units daily, Mag oxide 400 b.i.d., Antivert 12.5 q.8 hours . We restarted as mentioned midodrine 2.5 t.i.d., Singulair 10 mg daily, Aldactone 12.5 daily, Zanaflex 4 mg daily, Topamax 500 daily, dementia medicines will cut in half. All her blood pressure medications were cut 50% in the last week or 2 due to significant hypotension, near-syncope. She is much better at this time. Consults have not seen her yet, but she has a sleep apnea test today and I will probably discharge her home. PSYCH: Fair mood and affect. NEUROLOGIC: Alert and orient x3. She has ataxic gait with ambulation on admission, now it is improved. Hematologic 2+ edema, Endocrine, BMI is over 40. CARDIOVASCULAR: Irregular, regular rhythm. ASSESSMENT: Orthostatic hypotension, near syncope, dizziness, diabetes mellitus, neuropathy, coronary artery disease, CHF, atrial fibrillation. Sleep apnea test tonight. Discharge home on midodrine 2.5 t.i.d. Follow up as an outpatient next week. MMADRIANNAL / JEREMYN: [id number] /
[2019-09-06 16:13] VITALS: BP 118/71; PULSE 61; TEMP 97.9
[2019-09-06 17:01] LABS: Glucose,Whole Blood 112 mg/dL (75-99)
[2019-09-06 20:33] LABS: Folate, Serum 16.6 ng/mL
[2019-09-11] MEDS ORDERED: FERROUS SULFATE 325 MG TAB PO SCH (12:00)
== END 2019-09-06 18:31 | disposition home or self-care (01) ==
LOC: 1SOBS 15:03
PROVIDERS: ADMIT Family Medicine; ATTEND Family Medicine
DX: I95.1 Orthostatic hypotension (principal); I11.0 Hypertensive heart disease with heart failure; I50.22 Chronic systolic (congestive) heart failure; I42.8 Other cardiomyopathies; I48.91 Unspecified atrial fibrillation; I25.10 Atherosclerotic heart disease of native coronary artery without angina pectoris; E11.40 Type 2 diabetes mellitus with diabetic neuropathy, unspecified; G47.30 Sleep apnea, unspecified; E78.5 Hyperlipidemia, unspecified; I44.7 Left bundle-branch block, unspecified; G43.909 Migraine, unspecified, not intractable, without status migrainosus; J34.1 Cyst and mucocele of nose and nasal sinus; M41.9 Scoliosis, unspecified; D64.9 Anemia, unspecified; F41.9 Anxiety disorder, unspecified; F32.9 Major depressive disorder, single episode, unspecified; E04.2 Nontoxic multinodular goiter; R26.0 Ataxic gait; Z79.51 Long term (current) use of inhaled steroids; Z79.82 Long term (current) use of aspirin; Z79.4 Long term (current) use of insulin; Z79.891 Long term (current) use of opiate analgesic; Z79.899 Other long term (current) drug therapy; Z87.442 Personal history of urinary calculi; Z95.810 Presence of automatic (implantable) cardiac defibrillator; Z90.49 Acquired absence of other specified parts of digestive tract; Z90.710 Acquired absence of both cervix and uterus; Z96.652 Presence of left artificial knee joint; Z98.1 Arthrodesis status; Z80.9 Family history of malignant neoplasm, unspecified
CPT/HCPCS: 93005; 94640 ×3; 80053; 82607; 82746; 84484; 85025; 71046; 93880; 70450; G0378 ×2; G0379

== ENCOUNTER 2019-10-08 20:01 | Emergency (ER) | payer MEDICARE, OTHER ==
--- NOTE | 2019-10-08 20:34 | ED ---
General Adult HPI - General Chief complaint: Extremity Problem,Nontraumatic Stated complaint: Swelling in Both Legs Time Seen by Provider: 10/08/19 20:18 Source: patient Mode of arrival: wheelchair Limitations: no limitations - History of Present Illness Initial comments: Dictation was produced using [employer] dictation software. please excuse any gra mmatical, word or spelling errors. This patient was cared for during a federal and state declared state of emergency secondary to Covid 19 Chief Complaint: 63-year-old female chief complaint of bilateral lower extremity edema History of Present Illness: 63-year-old female she states she will go this morning with painful swelling in her bilateral lower legs. Patient reports that she has history of heart failure and pacemaker. She does take Lasix regularly. One month ago patient had her Lasix dose decreased because of hypotension. Patient states she does have some mild dyspnea since worse with lying flat compared to sitting up or standing up. Currently being treated with steroids by her telemedicine physician for some sort of inflammatory process in her chest and throat. She denies any fever, chills or night sweats. The ROS documented in this emergency department record has been reviewed and confirmed by me. Those systems with pertinent positive or negative responses have been documented in the HPI. All other systems are other negative and/or noncontributory. PHYSICAL EXAM: General Impression: Alert and oriented x3, not in acute distress HEENT: Normocephalic atraumatic, extra-ocular movements intact, pupils equal and reactive to light bilaterally, mucous membranes moist. Cardiovascular: Heart regular rate and rhythm Chest: Able to complete full sentences, no retractions, no tachypnea Abdomen: abdomen soft, non-tender, non-distended, no organomegaly Musculoskeletal: Pulses present and equal in all extremities, 1+ pitting edema bilaterally Motor: no focal deficits noted Neurological: CN II-XII grossly intact, no focal motor or sensory deficits noted Skin: Intact with no visualized rashes Psych: Normal affect and mood ED course: 63-year-old female presents today with lower extremity pitting edema bilaterally signs upon arrival are within acceptable limits. Patient has no asymmetrical leg swelling. She has no Tenderness popliteal tenderness. No concern for deep venous thrombosis andor PE at this time. Laboratory evaluation obtained. CBC unremarkable. Coag panel is negative. Metabolic panel is baseline. X-rays baseline. Per natruretic peptide is normal. Clinical presentation is likely secondary to gravity dependent edema versus heat edema to the bilateral lower extremities. Patient given 40 mg of IV Lasix. 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 Patient agreeable to plan. She is given some Bon wrap to wrap around her legs to help compress the area to remove the swelling. EKG interpretation: Ventricular rate 67, sinus rhythm, KS interval 152, QRS 136, QTC 448. No KS prolongation, no QTC prolongation, no ST or T-wave changes noted. EKG compared to 09/06/2019 showing no changes. Overall, this EKG is unremarkable - Related Data Home Medications Medication Instructions Recorded Confirmed Magnesium Oxide [Mag-Ox] 500 mg PO BID 05/06/14 09/05/19 Cyanocobalamin [Vitamin B-12] 250 mcg PO DAILY 08/02/16 09/05/19 Aspirin EC [Ecotrin Low Dose] 81 mg PO DAILY 11/02/18 09/05/19 Fluticasone/Vilanterol [Breo 1 puff INHALATION RT-DAILY 11/02/18 09/05/19 Ellipta 100-25 Mcg Inhaler] Montelukast [Singulair] 10 mg PO HS 11/02/18 09/05/19 Semaglutide [Ozempic] 0.25 mg SQ TH 11/02/18 09/05/19 Spironolactone [Aldactone] 12.5 mg PO DAILY 11/02/18 09/05/19 Albuterol Sulfate [Albuterol 2 puff INHALATION RT-QID 01/14/19 09/05/19 Sulfate Hfa] Furosemide [Lasix] 10 mg PO DAILY 01/14/19 09/05/19 HYDROcodone/APAP 7.5-325MG [Greenback 1 tab PO BID PRN 01/14/19 09/05/19 7.5-325] Insulin Aspart [NovoLOG Flexpen] See Protocol SQ AC-TID 01/14/19 09/05/19 Albuterol Nebulized [Ventolin 2.5 mg INHALATION RT-QID PRN 02/18/19 09/05/19 Nebulized] Ergocalciferol [Vitamin D2 50,000 unit PO Q30D 05/26/19 09/05/19 (DRISDOL)] Atorvastatin [Lipitor] 20 mg PO HS 09/05/19 09/05/19 Carvedilol [Coreg] 12.5 mg PO BID 09/05/19 09/05/19 Docusate [Colace] 100 mg PO Q48H 09/05/19 09/05/19 Fluticasone Propionate [Flovent 2 puff INHALATION RT-BID 09/05/19 09/05/19 Hfa 220 mcg] Insulin Aspart [NovoLOG Flexpen] 15 units SQ AC-BID@1200,1800 09/05/19 09/05/19 Insulin Detemir [Levemir Flextouch] 36 units SQ HS 09/05/19 09/05/19 Iron 28mg 1 tab PO NORRIS 09/05/19 09/05/19 Losartan [Cozaar] 12.5 mg PO DAILY 09/05/19 09/05/19 Meclizine [Antivert] 12.5 mg PO Q8H 09/05/19 09/05/19 Topiramate [Topamax] 50 mg PO HS 09/05/19 09/05/19 tiZANidine [Zanaflex] 4 mg PO HS 09/05/19 09/05/19 Previous Rx's Medication Instructions Recorded Insulin Aspart [NovoLOG Flexpen] 13 units SQ AC-BRKFST #0 05/30/19 Midodrine [ProAmatine] 2.5 mg PO AC-TID tab 09/06/19 Allergies Allergy/AdvReac Type Severity Reaction Status Date / Time No Known Allergies Allergy Verified 10/08/19 21:36 Review of Systems ROS Statement: Those systems with pertinent positive or pertinent negative responses have been documented in the HPI. ROS Other: All systems not noted in ROS Statement are negative. Past Medical History Past Medical History: Atrial Fibrillation, Asthma, Coronary Artery Disease (CAD), Chest Pain / Angina, Heart Failure, Diabetes Mellitus, Hyperlipidemia, Hypertension, Musculoskeletal Disorder, Osteoarthritis (OA), Pneumonia, Renal Disease, Sleep Apnea/CPAP/BIPAP Additional Past Medical History / Comment(s): Arrhythmia, Afib-Converted with ablation 05/2013, Cardiomyopathy,DDD, Diabetic Neuropathy, Edema, Scoliosis,Anemia, KIDNEY STONES. History of Any Multi-Drug Resistant Organisms: None Reported Past Surgical History: Ablation, AICD, Back Surgery, Cardiac Ablation, Section, Cholecystectomy, Heart Catheterization, Hysterectomy, Joint Replacement, Orthopedic Surgery, Pacemaker Additional Past Surgical History / Comment(s): Varicose Vein Stripping,Rt Knee scope, D & C, Colonoscopy, Lithotripsy, Removal of kidney stones,LT TOTAL KNEE REPLACEMENT, Major back surgery 11/13/2018 in [facility], "Fusion and stenosis taken care of as well as spurs removed". Past Anesthesia/Blood Transfusion Reactions: No Reported Reaction Additional Past Anesthesia/Blood Transfusion Reaction / Comment(s): HAS HAD NO PROBLEMS WITH PRIOR BLOOD TRANSFUSIONS Type of Cardiac Device: Permanent Pacemaker, AICD Device Placement Date:: 03/14/2011-Metronic LT CHEST Past Psychological History: Anxiety, Depression Past Alcohol Use History: None Reported Past Drug Use History: None Reported - Past Family History Father Family Medical History: Cancer Brother(s) Family Medical History: Cancer Sister(s) Family Medical History: Cancer Mother Family Medical History: Cancer General Exam Limitations: no limitations Course Vital Signs 10/08/19 20:08 Temperature 98.3 F Pulse Rate 82 Respiratory 20 Rate Blood Pressure 146/80 O2 Sat by Pulse 97 Oximetry Medical Decision Making - Lab Data Result diagrams: 10/08/19 20:50 10/08/19 20:50 Lab Results 10/08/19 10/08/19 10/08/19 Range/Units 20:50 20:50 20:50 WBC 7.9 (3.8-10.6) k/uL RBC 3.85 (3.80-5.40) m/uL Hgb 12.2 (11.4-16.0) gm/dL Hct 38.1 (34.0-46.0) % MCV 99.2 (80.0-100.0) fL MCH 31.6 (25.0-35.0) pg MCHC 31.9 (31.0-37.0) g/dL RDW 15.2 (11.5-15.5) % Plt Count 92 L (150-450) k/uL Neutrophils % 82 % Lymphocytes % 12 % Monocytes % 4 % Eosinophils % 1 % Basophils % 0 % Neutrophils # 6.4 (1.3-7.7) k/uL Lymphocytes # 1.0 (1.0-4.8) k/uL Monocytes # 0.3 (0-1.0) k/uL Eosinophils # 0.1 (0-0.7) k/uL Basophils # 0.0 (0-0.2) k/uL Manual Slide Review Performed Macrocytosis Slight PT 10.6 (9.0-12.0) sec INR 1.0 (<1.2) APTT 20.9 L (22.0-30.0) sec Sodium 138 (137-145) mmol/L Potassium 4.6 (3.5-5.1) mmol/L Chloride 109 H (98-107) mmol/L Carbon Dioxide 23 (22-30) mmol/L Anion Gap 6 mmol/L BUN 35 H (7-17) mg/dL Creatinine 1.06 H (0.52-1.04) mg/dL Est GFR (CKD-EPI)AfAm 64 (>60 ml/min/1.73 sqM) Est GFR (CKD-EPI)NonAf 56 (>60 ml/min/1.73 sqM) Glucose 161 H (74-99) mg/dL Calcium 8.9 (8.4-10.2) mg/dL Magnesium 1.9 (1.6-2.3) mg/dL Total Bilirubin 0.6 (0.2-1.3) mg/dL AST 72 H (14-36) U/L ALT 103 H (4-34) U/L Alkaline Phosphatase 136 H (38-126) U/L NT-Pro-B Natriuret Pep pg/mL Total Protein 5.6 L (6.3-8.2) g/dL Albumin 3.5 (3.5-5.0) g/dL 10/08/19 Range/Units 20:50 WBC (3.8-10.6) k/uL RBC (3.80-5.40) m/uL Hgb (11.4-16.0) gm/dL Hct (34.0-46.0) % MCV (80.0-100.0) fL MCH (25.0-35.0) pg MCHC (31.0-37.0) g/dL RDW (11.5-15.5) % Plt Count (150-450) k/uL Neutrophils % % Lymphocytes % % Monocytes % % Eosinophils % % Basophils % % Neutrophils # (1.3-7.7) k/uL Lymphocytes # (1.0-4.8) k/uL Monocytes # (0-1.0) k/uL Eosinophils # (0-0.7) k/uL Basophils # (0-0.2) k/uL Manual Slide Review Macrocytosis PT (9.0-12.0) sec INR (<1.2) APTT (22.0-30.0) sec Sodium (137-145) mmol/L Potassium (3.5-5.1) mmol/L Chloride (98-107) mmol/L Carbon Dioxide (22-30) mmol/L Anion Gap mmol/L BUN (7-17) mg/dL Creatinine (0.52-1.04) mg/dL Est GFR (CKD-EPI)AfAm (>60 ml/min/1.73 sqM) Est GFR (CKD-EPI)NonAf (>60 ml/min/1.73 sqM) Glucose (74-99) mg/dL Calcium (8.4-10.2) mg/dL Magnesium (1.6-2.3) mg/dL Total Bilirubin (0.2-1.3) mg/dL AST (14-36) U/L ALT (4-34) U/L Alkaline Phosphatase (38-126) U/L NT-Pro-B Natriuret Pep 385 pg/mL Total Protein (6.3-8.2) g/dL Albumin (3.5-5.0) g/dL Disposition Clinical Impression: Leg swelling Disposition: HOME SELF-CARE Condition: Good Instructions (If sedation given, give patient instructions): Leg Edema (ED) Is patient prescribed a controlled substance at d/c from ED?: No Referrals: Vishal Snell MD [Primary Care Provider] - 1-2 days Time of Disposition: 21:44
[2019-10-08 20:55] LABS: Basophils % (A) 0 %; Eosinophils # (A) 0.1 k/uL (0-0.7); Eosinophils % (A) 1 %; HCT 38.1 % (34.0-46.0); HGB 12.2 gm/dL (11.4-16.0); Lymphocytes % (A) 12 %; MCH 31.6 pg (25.0-35.0); MCHC 31.9 g/dL (31.0-37.0); MCV 99.2 fL (80.0-100.0); Macrocytosis Slight; Monocytes # (A) 0.3 k/uL (0-1.0); Monocytes % (A) 4 %; Neutrophils # (A) 6.4 k/uL (1.3-7.7); Neutrophils % (A) 82 %; RBC 3.85 m/uL (3.80-5.40); RDW 15.2 % (11.5-15.5); WBC 7.9 k/uL (3.8-10.6)
[2019-10-08 21:07] LABS: Albumin 3.5 g/dL (3.5-5.0); Calcium 8.9 mg/dL (8.4-10.2); Magnesium 1.9 mg/dL (1.6-2.3); Platelet Count 92 k/uL (150-450); Potassium 4.6 mmol/L (3.5-5.1); Total Bilirubin 0.6 mg/dL (0.2-1.3); Total Protein 5.6 g/dL (6.3-8.2)
[2019-10-08 21:17] LABS: Partial Thromboplastin Time 20.9 sec (22.0-30.0); Prothrombin Time 10.6 sec (9.0-12.0)
--- NOTE | 2019-10-08 21:19 | XR ---
EXAMINATION TYPE: XR chest 2V DATE OF EXAM: 10/08/2019 COMPARISON: 09/05/2019 HISTORY: Short of breath TECHNIQUE: 2 views FINDINGS: Heart is normal. Lungs are clear of infiltrate. There is left axillary pacemaker. There is no pleural effusion. There is minor spurring in the thoracic spine. There is increased density above the left pulmonary hilum that appears to relate to mediastinal lipom atosis on the CT scan of 05/26/2019. IMPRESSION: No active cardiopulmonary disease. No change. Normal heart.
[2019-10-08] MEDS ORDERED: FUROSEMIDE 10 MG/ML 4 ML VIAL IV STA (21:37)
[2019-10-08 21:55] VITALS: TEMP 98
[2019-10-08 23:04] VITALS: BP 134/97; PULSE 118; RESP 17
== END 2019-10-08 22:18 | disposition home or self-care (01) ==
LOC: EC 20:01
DX: M79.89 Other specified soft tissue disorders (principal); I11.0 Hypertensive heart disease with heart failure; I50.9 Heart failure, unspecified; E11.40 Type 2 diabetes mellitus with diabetic neuropathy, unspecified; G47.30 Sleep apnea, unspecified; M19.90 Unspecified osteoarthritis, unspecified site; I25.110 Atherosclerotic heart disease of native coronary artery with unstable angina pectoris; J45.909 Unspecified asthma, uncomplicated; E78.5 Hyperlipidemia, unspecified; I48.91 Unspecified atrial fibrillation; Z79.02 Long term (current) use of antithrombotics/antiplatelets; Z79.4 Long term (current) use of insulin; Z79.82 Long term (current) use of aspirin; Z79.899 Other long term (current) drug therapy; Z79.51 Long term (current) use of inhaled steroids; Z79.84 Long term (current) use of oral hypoglycemic drugs; Z95.810 Presence of automatic (implantable) cardiac defibrillator; Z99.89 Dependence on other enabling machines and devices; Z96.652 Presence of left artificial knee joint; Z87.442 Personal history of urinary calculi
CPT/HCPCS: 36415; 93005; 83880; 80053; 83735; 85025; 85610; 85730; 71046; 99284; 96374; J1940

== ENCOUNTER → 2019-10-17 | Outpatient (CLI) | payer MEDICARE, OTHER ==
--- NOTE | 2019-10-17 14:44 | MM ---
Reason for exam: additional evaluation requested from prior study. Last mammogram was performed 7 months ago. History: Patient is postmenopausal. Benign MG stereo VAD BX RT of the right breast, April 14, 2019. Benign stereotactic core biopsy of the left breast, 2009. Took hormonal contraceptives beginning at age 16. Took estrogen for 1 year. Physical Findings: Nurse did not find any significant physical abnormalities on exam. MG 3D Diag Mammo W/Cad RT CC and MLO view(s) were taken of the right breast. Prior study comparison: March 08, 2019, right breast MG work up mamm w CAD RT. February 18, 2019, bilateral MG screening mammo w CAD. There are scattered fibroglandular densities. Previous mammotome biopsy in the right breast. Benign oil cyst calcifications. No significant new findings when compared with previous films. These results were verbally communicated with the patient and result sheet given to the patient on 10/17/19. ASSESSMENT: Benign, BI-RAD 2 RECOMMENDATION: Return to routine screening mammogram schedule for both breasts.
== END | disposition home or self-care (01) ==
LOC: RADMAMWWP 12:51
PROVIDERS: ATTEND Surgery
DX: R92.8 Other abnormal and inconclusive findings on diagnostic imaging of breast (principal)
CPT/HCPCS: 77065; G0279; 77061

== ENCOUNTER → 2019-10-18 | Outpatient (CLI) | payer MEDICARE, OTHER ==
--- NOTE | 2019-10-18 16:37 | CT ---
EXAMINATION TYPE: CT angio chest DATE OF EXAM: 10/18/2019 9:39 AM COMPARISON: CTA chest 05/26/2019 HISTORY: Thoracic aortic aneurysm CT DLP: 915.1 mGycm Automated exposure control for dose reduction was used. CONTRAST: CTA scan of the thorax is performed with IV Contrast, patient injected with 80 mL of Isovue 370, thor acic aortic aneurysm protocol. 3D reconstructed images are created on an independent workstation and reviewed. FINDINGS: LUNGS: The lungs are grossly clear, there is no concerning parenchymal mass or nodule identified. The re is no pleural effusion or pneumothorax seen. The tracheobronchial tree is patent. MEDIASTINUM: There is satisfactory enhancement of the thoracic aorta, which is normal in caliber. The ascending thoracic aorta measures up to 3.6 cm. There is dilatation of the main pulmonary arterial t runk measuring up to 3.5 cm. The descending thoracic aorta measures up to 3.4 cm. No axillary, medias tinal, or hilar lymphadenopathy. There is marked cardiomegaly. Calcified coronary artery disease. Lef t-sided pacemaker. No pericardial effusion is seen. OTHER: No adrenal nodule. Incompletely visualized kidneys with bilateral too small to characterize h ypodense lesions and left sided surgical clips. Decreased osseous mineralization, degenerative change s of the spine, and increased thoracic kyphosis. IMPRESSION: 1. No thoracic aortic aneurysm. 2. Enlarged pulmonary arterial trunk may represent pulmonary hypertension. 3. Cardiomegaly.
== END | disposition home or self-care (01) ==
LOC: RADCTMAIN 08:13
PROVIDERS: ATTEND Thoracic Surgery (Cardiothoracic Vascular Surgery)
DX: I51.7 Cardiomegaly (principal); I28.8 Other diseases of pulmonary vessels; I71.2 Thoracic aortic aneurysm, without rupture
CPT/HCPCS: 82565; 84520; 71275; 36415; Q9967

== ENCOUNTER → 2019-10-21 | Outpatient (CLI) | payer MEDICARE, OTHER ==
[2019-10-21 13:47] VITALS: BP 117/75; PULSE 102; RESP 18; TEMP 98.3
--- NOTE | 2019-10-21 13:53 | P.PN ---
Subjective Progress Note Date: 10/21/19 Principal diagnosis: breast surveillance/ status post stero biopsy right breast Yani is a 63-year-old white female seen in consultation for DR. Vishal Snell on 04-13-19 regarding an abnormal finding on routine screening mammogram performed on [id number] she was noted to have focal asymmetry in the upper outer quadrant of the right breast. Additional views were recommended. Additional views of the right breast were performed and 172 which showed a persistent 6 mm focal asymmetry. She subsequently underwent an ultrasound of the right breast on the same day which did not reveal any sonographic correlate. She is status post left breast core biopsy in 2010 which was a benign cyst. She underwent a stereotactic core biopsy of the area of concern on . This was benign breast with fibrocystic changes and prominent adipose tissue. It was reviewed with radiology and felt to be benign specific. At this time she has a repeat right breast mammogram performed 71871 which is felt to be benign BIRADS 2. She does not feel any lumps masses or skin changes in her breasts. She has no nipple discharge for which she is concerned. She has no complaint of any recent trauma or infection in the breast. caffiene: 2 cups/day nicotine: none chocolate: occasional Family History: mother: ovarian, cervical cancer from this father: stomach brother: lung sister: 6th bout of cancer, colon maternal uncle: two brain, and lung cancer Hormonal History: menarche: 7 , breast fed: no, first born at 22 menopause: 38, hysterectomy at 38 took both ovaries BCP: 1 year hormones: none Surgical History: 1. two C sections 2. bilateral vein stripping 3. bilateral knee replacement 4. gallbladder 5. 4 lithotripsy 6. kidney surgery for stones 7. 4 back surgeries Medical History: 1. CHF 2. renal failure 3. GERD 4. sepsis/ 2014 from UTI 5. diabetes 6. migraines 7. hypotension 8. recent pneumonia two times Social History: smoke: none alcohol: none drugs: none - Constitutional Constitutional: Reports sweats - EENT Comment: beginning of cataracts Ears: deny: decreased hearing, tinnitus Ears, nose, mouth and throat: Reports headache - Breasts Breasts: bilateral: as per HPI - Cardiovascular Comment: CHF, pacemaker for bradycardia - Respiratory Comment: asthma, bronchitis, pneumonia five times - Gastrointestinal Comment: GERD - Genitourinary (Female) Genitourinary: Reports kidney stones - Menstruation Menstruation: Reports post hysterectomy - Musculoskeletal Comment: arthritis - Integumentary Integumentary: Denies pruritus, Denies rash - Neurological Comment: neurapathy in feet Neurological: Reports numbness, Denies weakness - Psychiatric Psychiatric: Reports anxiety, Reports depression - Endocrine Comment: diabetes - Hematologic/Lymphatic Comment: being followed by a thoracic surgeon ? Aneurysm, aspirin - Allergic/Immunologic Allergic/Immunologic: Reports as per HPI Objective - Exam BMI 39.8 - Constitutional General appearance: Present: average body habitus - EENT Eyes: Present: EOMI ENT: Present: hearing grossly normal - Neck Neck: Present: normal ROM - Respiratory Respiratory: bilateral: CTA - Cardiovascular Rhythm: regular Heart sounds: normal: S1, S2 - Gastrointestinal General gastrointestinal: Present: normal bowel sounds, soft - Integumentary Integumentary: Present: normal turgor - Musculoskeletal Musculoskeletal: Present: gait normal - Psychiatric Psychiatric: Present: A&O x's 3, appropriate affect, intact judgment & insight - Additional findings Additional findings: breast exam: BRA: 44DD inspection: Grade 3 ptosis bilateral, no nipple inversion Palpation: Right breast: Multi-positional exam fibrocystic changes, no dominant masses or nodules of concern Right axilla: No adenopathy of concern Left breast: Multi-positional exam fibrocystic changes no dominant masses or nodules of concern Left axilla: No adenopathy of concern Assessment and Plan Assessment: Impression: 1. Patient status post right breast stereotactic core biopsy 6 months ago. Recent radiographs stable 2. Fibrocystic breast changes 2. Family history of cancer 4. Multiple bouts of pneumonia 5. [place] [address] thoracic aortic aneurysm, enlarged pulmonary arterial trunk. Represent pulmonary hypertension, cardiomegaly, following with this. Cardiology and pulmonary 6. CHF 7. Renal failure 8. GERD 9. Diabetes Plan: 1. Repeat bilateral mammogram in 6 months for physician exam at that time 2. Patient to call sooner if any questions or concerns 3. Continue to follow up with primary care physician, and medcial mds CC: DR. Vishal Chavis encounter 20 minutes, > 50% of time in planning and counselling
== END | disposition home or self-care (01) ==
LOC: WWCWWP 13:25
PROVIDERS: ATTEND Surgery
DX: N60.19 Diffuse cystic mastopathy of unspecified breast (principal)
CPT/HCPCS: 99213

== ENCOUNTER → 2019-10-25 | Outpatient (CLI) | payer MEDICARE, OTHER ==
[2019-10-25 12:11] LABS: Basophils % (A) 1 %; Eosinophils # (A) 0.1 k/uL (0-0.7); Eosinophils % (A) 2 %; HCT 35.9 % (34.0-46.0); HGB 11.4 gm/dL (11.4-16.0); Lymphocytes # (A) 1.3 k/uL (1.0-4.8); Lymphocytes % (A) 21 %; MCH 30.8 pg (25.0-35.0); MCHC 31.8 g/dL (31.0-37.0); MCV 97.1 fL (80.0-100.0); Mean Platelet Volume 8.6; Monocytes # (A) 0.4 k/uL (0-1.0); Monocytes % (A) 6 %; Neutrophils # (A) 4.2 k/uL (1.3-7.7); Neutrophils % (A) 68 %; Platelet Count 107 k/uL (150-450); RDW 14.9 % (11.5-15.5); WBC 6.2 k/uL (3.8-10.6)
== END | disposition home or self-care (01) ==
LOC: LABWHC1 10:33
PROVIDERS: ATTEND Internal Medicine Pulmonary Disease
DX: J45.51 Severe persistent asthma with (acute) exacerbation (principal)
CPT/HCPCS: 36415; 85025

== ENCOUNTER → 2019-10-27 | Outpatient (CLI) | payer MEDICARE, OTHER ==
--- NOTE | 2019-10-28 06:56 | US ---
EXAMINATION TYPE: US thyroid st tissue head/neck DATE OF EXAM: 10/27/2019 COMPARISON: NONE CLINICAL HISTORY: R22.0 Localized swelling, mass and lump, head. Difficult exam due to patient body h abitus GLAND SIZE: Right Lobe: 4.5 x 1.6 x 1.7 cm Overall Parenchyma: heterogenous Left Lobe: 4.2 x 1.0 x 1.4 cm Overall Parenchyma: heterogeneous Isthmus Thickness: 0.4 cm NODULES RIGHT: # of nodules measured on right: 2 largest- innumerable nodules visualized 1. 1.2 X 0.7 x 1.0 cm hypoechoic solid nodule at the mid pole with well-defined margins; . This no dule is wider than tall and shows intranodular vascularity. Prior size: No previous 2. 0.7 X 0.6 x 0.7 cm hypoechoic solid nodule at the lower pole with well-defined margins; . This n odule is wider than tall and shows no intranodular vascularity. Prior size: No previous LEFT: # of nodules measured on left: 1. 1.7 X 1.0x 1.3cm mixed nodule at the upper pole with well-defined margins; . This nodule is wide r than tall and shows intranodular vascularity. Prior size: No previous 2. 0.5 X 0.4 x 0.4 cm hypoechoic solid nodule at the lower pole with well-defined margins; . This n odule is wider than tall and shows no intranodular vascularity. Prior size: No previous ISTHMUS: # of nodules measured in the isthmus: 0 Bilateral neck scanned, no evidence of lymphadenopathy. IMPRESSION: Nonspecific nodularity. Need to biopsy should be made on a clinical basis.
== END | disposition home or self-care (01) ==
LOC: RADUSWWP 16:34
PROVIDERS: ATTEND Family Medicine
DX: E04.1 Nontoxic single thyroid nodule (principal)
CPT/HCPCS: 76536

== ENCOUNTER → 2019-11-17 | Outpatient (CLI) | payer MEDICARE, OTHER | END | disposition home or self-care (01) | LOC: RADCTMAIN 06:49 | PROVIDERS: ATTEND Internal Medicine Interventional Cardiology | DX: I65.22 Occlusion and stenosis of left carotid artery (principal); R09.89 Other specified symptoms and signs involving the circulatory and respiratory systems | CPT/HCPCS: 82565; 84520 ==

== ENCOUNTER 2019-11-24 12:56 | Day surgery (SDC) | payer MEDICARE, OTHER ==
[2019-11-24] MEDS ORDERED: ALPRAZolam 0.5 MG TAB PO ONE (13:12)
[2019-11-24 13:32] VITALS: RESP 16; TEMP 98.4
[2019-11-24 13:48] LABS: Glucose,Whole Blood 262 mg/dL (75-99)
--- NOTE | 2019-11-24 14:54 | US ---
EXAMINATION TYPE: US FNA thyroid each add lesion, US FNA thyroid first lesion DATE OF EXAM: 11/24/2019 COMPARISON: Thyroid ultrasound 10/27/2019 HISTORY: Thyroid nodules. Maximal barrier technique was utilized. After informed consent, skin overlying the left lobe thyroid lesion was localized with ultrasound and the overlying skin prepped and draped. Ultrasound was utili zed using sterile technique. Lidocaine was used for local anesthesia. Five passes with a 25-gauge ne edle were made into the nodule and aspirated specimen was submitted to cytology. Using same techniqu e the right-sided nodule at the level of the isthmus was aspirated 5 separate times under ultrasound guidance with a 25-gauge needle. Specimen submitted to cytology. Following the procedure hemostasis a chieved. No immediate complication. The patient discharged in stable condition. IMPRESSION: STATUS POST ULTRASOUND GUIDED FINE NEEDLE ASPIRATION OF THYROID NODULE, PATHOLOGY IS PEND ING. THIS PROCEDURE WAS PERFORMED BY THE UNDERSIGNED.
[2019-11-24 15:10] VITALS: BP 121/73; PULSE 67
== END 2019-11-24 14:55 | disposition home or self-care (01) ==
LOC: RADPROMAIN 12:56
PROVIDERS: ATTEND Family Medicine
DX: E04.2 Nontoxic multinodular goiter (principal)
CPT/HCPCS: 10005; 10006; 88173; 88305

== ENCOUNTER 2019-12-06 09:48 | Observation (INO) | payer MEDICARE, OTHER ==
[2019-12-06] MEDS ORDERED: Potassium Replacement Protocol 1 EACH MISC MISCELLANE PRN (11:22)
[2019-12-06] MEDS ORDERED: Magnesium Replacement Protocol 1 EACH MISC MISCELLANE PRN (11:22)
[2019-12-06 12:05] LABS: Glucose,Whole Blood 176 mg/dL (75-99)
[2019-12-06] MEDS: SODIUM CHLORIDE 0.9% 1,000 ML IV SCH (12:11)
[2019-12-06 12:23] LABS: Basophils % (A) 0 %; Eosinophils # (A) 0.1 k/uL (0-0.7); Eosinophils % (A) 2 %; HCT 35.1 % (34.0-46.0); HGB 11.6 gm/dL (11.4-16.0); Lymphocytes # (A) 1.2 k/uL (1.0-4.8); Lymphocytes % (A) 22 %; MCH 31.5 pg (25.0-35.0); MCV 95.7 fL (80.0-100.0); Mean Platelet Volume 8.3; Monocytes # (A) 0.3 k/uL (0-1.0); Monocytes % (A) 5 %; Neutrophils # (A) 3.6 k/uL (1.3-7.7); Neutrophils % (A) 69 %; Platelet Count 112 k/uL (150-450); RBC 3.66 m/uL (3.80-5.40); RDW 15.5 % (11.5-15.5); WBC 5.3 k/uL (3.8-10.6)
[2019-12-06] MEDS: INSULIN ASPART (NovoLOG) 100 UNIT/ML VIAL SQ SCH ×3 (12:45→21:43)
[2019-12-06 17:11] LABS: Glucose,Whole Blood 160 mg/dL (75-99)
[2019-12-06] MEDS: carvediloL 12.5 MG TAB PO SCH (17:31)
[2019-12-06] MEDS: HYDROcodone/APAP 7.5-325MG 1 EACH TAB PO PRN (17:32)
[2019-12-06] MEDS: ONDANSETRON 4 MG/2 ML VIAL IVP PRN (18:48)
[2019-12-06 20:28] LABS: Glucose,Whole Blood 182 mg/dL (75-99)
[2019-12-06] MEDS: ALBUTEROL NEBULIZED 2.5 MG/3 ML INHALATION SCH (20:37)
[2019-12-06 21:13] LABS: African American GFR (CKD) 45.6 (60.0-200.0); Albumin 3.8 g/dL (3.80-4.90); Albumin/Globulin Ratio 2.24 (1.60-3.17); Anion Gap 10.1 mmol/L (4.00-12.00); BUN/Creat Ratio 18.57 Ratio (12.00-20.00); Calcium 9.1 mg/dL (8.7-10.3); Carbon Dioxide 22.9 mmol/L (21.6-31.8); Globulin 1.7 g/dL (1.6-3.3); Magnesium 1.9 mg/dL (1.5-2.4); Non-African American GFR(CKD) 39.3 (60.0-200.0); Potassium 4.1 mmol/L (3.5-5.5); Total Bilirubin 0.8 mg/dL (0.2-1.2); Total Protein 5.5 g/dL (6.2-8.2)
[2019-12-06] MEDS: MIDODRINE 5 MG TAB PO SCH (21:42)
[2019-12-06] MEDS: tiZANidine 4 MG TAB PO SCH (21:42)
[2019-12-06] MEDS: MONTELUKAST 10 MG TAB PO SCH (21:42)
[2019-12-06] MEDS: MECLIZINE 12.5 MG TAB PO SCH (21:42)
[2019-12-06] MEDS: ATORVASTATIN 20 MG TAB PO SCH (21:42)
[2019-12-06] MEDS: TOPIRAMATE 25 MG TAB PO SCH (21:43)
--- NOTE | 2019-12-07 00:22 | CT ---
EXAMINATION TYPE: CT abdomen pelvis wo con DATE OF EXAM: 12/06/2019 COMPARISON: 02/18/2019 HISTORY: Abd Pain, Nausea, Diarrhea CT DLP: 1641.70 mGycm Automated exposure control for dose reduction was used. The lung bases are clear of consolidation. Heart appears enlarged. There is no pericardial effusion. There are clips from cholecystectomy. Liver shows no focal defect. Spleen is intact. There is impacte d stomach. There is no evidence of pancreatic mass. There is no adrenal mass. There is metal artifact in the posterior left kidney. There is no hydroneph rosis. There is no evidence of a renal mass. There is no retroperitoneal adenopathy. Bladder distends smoothly. There is no inguinal hernia. There is no free fluid in the pelvis. There is hysterectomy. There is no evidence of pelvic mass. Appendix is not seen. There is no sign of thickened appendix. There are spondylotic changes in the lumbar spi ne. There is no compression fracture. There is old posterior fusion surgery at L3-4. The bony pelvis appears intact. There is no evidence of a bowel obstruction. There is no sign of free air. There is no ascites. IMPRESSION: Mild cardiomegaly unchanged. No acute abnormality of the abdomen pelvis. Metallic density in the left kidney unchanged. No renal obstruction.
[2019-12-07 00:43] LABS: Appearance,Urine Clear (Clear); Bilirubin,Urine Negative (Negative); Blood,Urine Negative (Negative); Color,Urine Yellow; Glucose,Urine (UA) Negative (Negative); Hyaline Casts,Urine 7 /lpf (0-2); Ketones,Urine Negative (Negative); Leukocyte Esterase,Urine Large (Negative); Mucus,Urine Rare /hpf; Nitrite,Urine Negative (Negative); Protein,Urine Negative (Negative); RBC,Urine <1 /hpf (0-5); Specific Gravity,Urine 1.021 (1.001-1.035); Squamous Epithelial Cell,Urine 2 /hpf (0-4); Urobilinogen,Urine <2.0 mg/dL (<2.0); WBC,Urine 28 /hpf (0-5)
[2019-12-07 06:56] LABS: Glucose,Whole Blood 196 mg/dL (75-99)
[2019-12-07] MEDS: IPRATROPIUM 0.5 MG/2.5 ML NEBU INHALATION SCH ×4 (07:39→19:19)
[2019-12-07] MEDS: ALBUTEROL NEBULIZED 2.5 MG/3 ML INHALATION SCH ×4 (07:39→19:19)
[2019-12-07] MEDS: INSULIN ASPART (NovoLOG) 100 UNIT/ML VIAL SQ SCH ×4 (08:16→20:54)
[2019-12-07] MEDS: CYANOCOBALAMIN 500 MCG TAB PO SCH (08:16)
[2019-12-07] MEDS: MIDODRINE 5 MG TAB PO SCH ×3 (08:17→20:53)
[2019-12-07] MEDS: carvediloL 12.5 MG TAB PO SCH ×2 (08:17→17:27)
[2019-12-07] MEDS: MECLIZINE 12.5 MG TAB PO SCH ×2 (08:17→20:50)
[2019-12-07] MEDS: ASPIRIN 81 MG PO SCH (08:17)
[2019-12-07] MEDS: LOSARTAN 25 MG TAB PO SCH (08:17)
[2019-12-07] MEDS: FUROSEMIDE 20 MG TAB PO SCH (08:17)
[2019-12-07] MEDS: PANTOPRAZOLE 40 MG/10 ML VIAL IVP SCH (08:18)
[2019-12-07] MEDS: SPIRONOLACTONE 25 MG TAB PO SCH (08:18)
[2019-12-07] MEDS: HYDROcodone/APAP 7.5-325MG 1 EACH TAB PO PRN ×2 (08:27→19:14)
[2019-12-07] MEDS: SODIUM CHLORIDE 0.9% 1,000 ML IV SCH (10:50)
[2019-12-07 11:04] VITALS: BMI 38.6
[2019-12-07 11:43] LABS: Glucose,Whole Blood 219 mg/dL (75-99)
[2019-12-07] MEDS: ACETAMINOPHEN TAB 325 MG TAB PO PRN (12:05)
--- NOTE | 2019-12-07 15:42 | HP ---
HISTORY AND PHYSICAL This is a 64-year-old white female who came in with severe diarrhea, abdominal pain, nausea and vomiting, unable to keep any food down. She feels weak and fatigued and has epigastric pain, severe diarrhea and dehydration. She was admitted and started on IV fluids. Await recommendations on abdominal pain, nausea, vomiting and chronic diarrhea. CT scan of abdomen and pelvis shows no significant abnormalities. Wait for Dr. Barros's recommendations. We are going to rehydrate her overnight and monitor her diarrhea. Stool cultures have been sent as well as urine cultures. Abdominal pain and chronic diarrhea should be evaluated by Dr. Barros. HOME MEDICATIONS: Home medications include: 1. Ventolin nebulizer. 2. Aspirin 81 mg daily. 3. Lipitor 20 daily. 4. Rocaltrol 0.25 mcg q.7 days. 5. Coreg 12.5 b.i.d. 6. Lasix 20 daily. 7. Gordon 7.5 t.i.d. 8. NovoLog before meals and at bedtime. 9. Cozaar 25 mg daily. 10.Antivert 12.5 b.i.d. 11.ProAmatine 10 mg t.i.d. 12.Singulair 10 mg daily. 13.Zofran for nausea and vomiting. 14.Protonix 40 mg daily. 15.Topamax 50 mg daily for headaches. 16.Zanaflex 4 mg daily for degenerative disease, muscle spasm. 17.Aldactone 12.[address] Leonard for severe diarrhea and dehydration is pending. She has large leukocyte esterase and white cells in the urine. Waiting for urine culture to come back on that. Coronavirus is negative. Stool cultures are still not done yet. Negative troponin and negative magnesium. PHYSICAL EXAMINATION: Vital signs reviewed. CARDIOVASCULAR: S1, S2. LUNGS: Scattered rhonchi and wheeze. ENDOCRINE: BMI is over 40. ABDOMEN: Distended. Tenderness to palpation, epigastric. Increased bowel sounds. INTEGUMENT: Decreased skin turgor. Dry mucous membranes. As mentioned, abnormal UA. Other labs are reviewed. ASSESSMENT: 1. Dehydration. 2. Acute abdominal pain. 3. Chronic diarrhea. Rehydrate the patient. Get Dr. Leonard to see her for abdominal pain. Continue current treatment. Please see further orders. MMODL / IJN: [id number] /
[2019-12-07 17:04] LABS: Glucose,Whole Blood 167 mg/dL (75-99)
[2019-12-07] MEDS: ONDANSETRON 4 MG/2 ML VIAL IVP PRN (17:40)
[2019-12-07 20:36] LABS: Glucose,Whole Blood 237 mg/dL (75-99)
[2019-12-07] MEDS: ATORVASTATIN 20 MG TAB PO SCH (20:50)
[2019-12-07] MEDS: tiZANidine 4 MG TAB PO SCH (20:53)
[2019-12-07] MEDS: MONTELUKAST 10 MG TAB PO SCH (20:53)
[2019-12-07] MEDS: TOPIRAMATE 25 MG TAB PO SCH (20:53)
[2019-12-07 21:34] LABS: Hemoglobin A1C 8.1 % (4.0-6.0)
[2019-12-08] MEDS: HYDROcodone/APAP 7.5-325MG 1 EACH TAB PO PRN ×3 (04:27→20:33)
[2019-12-08] MEDS: SODIUM CHLORIDE 0.9% 1,000 ML IV SCH ×2 (04:28→22:07)
[2019-12-08 06:21] LABS: Basophils % (A) 0 %; Eosinophils # (A) 0.2 k/uL (0-0.7); Eosinophils % (A) 3 %; HCT 34.3 % (34.0-46.0); Hypochromasia Slight; Lymphocytes # (A) 1.1 k/uL (1.0-4.8); Lymphocytes % (A) 23 %; MCH 30.1 pg (25.0-35.0); MCV 94.2 fL (80.0-100.0); Mean Platelet Volume 8.2; Monocytes # (A) 0.3 k/uL (0-1.0); Monocytes % (A) 6 %; Neutrophils # (A) 3.2 k/uL (1.3-7.7); Neutrophils % (A) 66 %; Platelet Count 106 k/uL (150-450); Poikilocytosis Slight; RBC 3.65 m/uL (3.80-5.40); RDW 15.8 % (11.5-15.5); WBC 4.9 k/uL (3.8-10.6)
[2019-12-08 07:07] LABS: Glucose,Whole Blood 178 mg/dL (75-99)
[2019-12-08] MEDS: ONDANSETRON 4 MG/2 ML VIAL IVP PRN ×2 (08:15→14:52)
[2019-12-08] MEDS: MIDODRINE 5 MG TAB PO SCH ×3 (08:17→21:59)
[2019-12-08] MEDS: PANTOPRAZOLE 40 MG/10 ML VIAL IVP SCH (08:17)
[2019-12-08] MEDS: SPIRONOLACTONE 25 MG TAB PO SCH (08:18)
[2019-12-08] MEDS: LOSARTAN 25 MG TAB PO SCH (08:18)
[2019-12-08] MEDS: carvediloL 12.5 MG TAB PO SCH ×2 (08:18→17:14)
[2019-12-08] MEDS: INSULIN ASPART (NovoLOG) 100 UNIT/ML VIAL SQ SCH ×4 (08:18→21:58)
[2019-12-08] MEDS: FUROSEMIDE 20 MG TAB PO SCH (08:18)
[2019-12-08] MEDS: CYANOCOBALAMIN 500 MCG TAB PO SCH (08:18)
[2019-12-08] MEDS: ASPIRIN 81 MG PO SCH (08:19)
[2019-12-08] MEDS: MECLIZINE 12.5 MG TAB PO SCH ×2 (08:19→21:59)
[2019-12-08] MEDS: IPRATROPIUM 0.5 MG/2.5 ML NEBU INHALATION SCH ×3 (08:43→15:54)
[2019-12-08] MEDS: ALBUTEROL NEBULIZED 2.5 MG/3 ML INHALATION SCH ×3 (08:43→15:54)
[2019-12-08 09:52] LABS: African American GFR (CKD) 49.9 (60.0-200.0); Anion Gap 8.3 mmol/L (4.00-12.00); BUN/Creat Ratio 12.31 Ratio (12.00-20.00); Calcium 8.6 mg/dL (8.7-10.3); Carbon Dioxide 23.7 mmol/L (21.6-31.8); Potassium 3.7 mmol/L (3.5-5.5)
[2019-12-08] MEDS ORDERED: LOPERAMIDE 2 MG CAP PO PRN (10:39)
--- NOTE | 2019-12-08 11:25 | P.CONS ---
History of Present Illness - Reason for Consult Consult date: 12/07/19 Diarrhea Requesting physician: Vishal Snell - Chief Complaint Diarrhea - History of Present Illness 64-year-old female with multiple medical comorbidities including hyperlipidemia, hypertension, diabetes mellitus, nephrolithiasis, atrial fibrillation status post ablation who presented to the hospital due to complaints of persistent diarrhea. The patient reports approximately one month symptoms of persistent loose bowel movements. She reports up to 6 bowel movements per day. Bowel movements are generally loose and watery. She reports associated urgency with bowel movement. She does report increased stress which is been present since her approximately 10 years ago. She reports associated nausea and decreased oral intake. She believes she has lost proximal 4 pounds. No improvement of symptoms with steroid therapy as well as antibiotics. She does report cramping lower abdominal pain associated with bowel movements. Computed tomography scan of the abdomen negative for any acute findings. Laboratory evaluation significant for hemoglobin 11.6, WBC 5.3, platelet count 112,000, total bilirubin 0.8, alkaline phosphatase 85, AST 27 and ALT 18. Last colonoscopy 5 years ago and normal with the surgical service. Review of Systems REVIEW OF SYSTEMS: CONSTITUTIONAL: Denies any fevers, chills, weight change (may have lost 4 pounds in association with symptoms) or fatigue. CARDIOVASCULAR: Denies any chest pain, palpitations high or low blood pressures RESPIRATORY: Denies any shortness of breath, hemoptysis or cough. GENITOURINARY: No dysuria or hematuria. MUSCULOSKELETAL: No weakness reported. SKIN: Denies any new rashes or lesions, jaundice or pallor. PSYCHIATRIC: Denies any depression or anxiety. NEUROLOGY: Denies headache, denies any new focal deficits. EARS/NOSE/THROAT: No recent hearing change, congestion, nasal discharge or sore throat. EYES: No pain in eyes, discharge or change in vision. GASTROINTESTINAL: As per HPI. Past Medical History Past Medical History: Atrial Fibrillation, Asthma, Coronary Artery Disease (CAD), Chest Pain / Angina, Heart Failure, Diabetes Mellitus, Hyperlipidemia, Hypertension, Musculoskeletal Disorder, Osteoarthritis (OA), Pneumonia, Renal Disease, Sleep Apnea/CPAP/BIPAP, Vascular Disorder Additional Past Medical History / Comment(s): Afib with ablation-now NSR, idiopathic cardiomyopathy/AICD, IDDM type II, neuropathy bilateral hands/legs/feet, CKD stage III, nephrolithiasis-pt has passed stone once and has had surgical procedures, anemia, UTIs, CARLOS with bipap, bronchitis, orthostatic hypotension with near syncope, vertigo, chronic low back pain/DDD, scoliosis, bilateral carpal tunnel syndrome, bilateral varicosities. History of Any Multi-Drug Resistant Organisms: None Reported Past Surgical History: Ablation, AICD, Appendectomy, Back Surgery, Cardiac Ablation, Section, Cholecystectomy, Heart Catheterization, Hysterectomy, Joint Replacement, Orthopedic Surgery, Pacemaker Additional Past Surgical History / Comment(s): 2011 AICD/pacer, 2012 cardiac cath, 2013 cardiac ablation, R knee arthroscopy, L total knee arthroplasty, pain clinic procedures, D&C, colonoscopy, bilateral leg varicose vein surgery, lithotripsy, surgical removal of stones Past Anesthesia/Blood Transfusion Reactions: No Reported Reaction Additional Past Anesthesia/Blood Transfusion Reaction / Comm: Pt has received blood without reaction. Type of Cardiac Device: Permanent Pacemaker, AICD Device Placement Date:: 03/14/2011-Metronic LT CHEST Smoking Status: Never smoker - Past Family History Father Family Medical History: Cancer Additional Family Medical History / Comment(s): stomach Brother(s) Family Medical History: Cancer Additional Family Medical History / Comment(s): lung Sister(s) Family Medical History: Cancer Additional Family Medical History / Comment(s): Sister had stomach/colon/part of pancreas cancers. She is still living. Mother Family Medical History: Cancer Additional Family Medical History / Comment(s): ovarian and cervical Medications and Allergies Home Medications Medication Instructions Recorded Confirmed Type Magnesium Oxide [Mag-Ox] 500 mg PO BID 05/06/14 12/06/19 History Aspirin EC [Ecotrin Low Dose] 81 mg PO DAILY 11/02/18 12/06/19 History Montelukast [Singulair] 10 mg PO HS 11/02/18 12/06/19 History Spironolactone [Aldactone] 12.5 mg PO DAILY 11/02/18 12/06/19 History Albuterol Sulfate [Albuterol 2 puff INHALATION RT-QID 01/14/19 12/06/19 History Sulfate Hfa] HYDROcodone/APAP 7.5-325MG [[place] 1 tab PO TID PRN 01/14/19 12/06/19 History 7.5-325] Insulin Aspart [NovoLOG Flexpen] 13 units SQ AC-BRKFST #0 05/30/19 12/06/19 Rx Atorvastatin [Lipitor] 20 mg PO HS 09/05/19 12/06/19 History Carvedilol [Coreg] 12.5 mg PO BID 09/05/19 12/06/19 History Docusate [Colace] 100 mg PO Q48H 09/05/19 12/06/19 History Insulin Aspart [NovoLOG Flexpen] 15 units SQ AC-BID@1200,1800 09/05/19 12/06/19 History Insulin Detemir [Levemir Flextouch] 36 units SQ HS 09/05/19 12/06/19 History Iron 28mg 28 mg PO NORRIS 09/05/19 12/06/19 History Meclizine [Antivert] 12.5 mg PO BID 09/05/19 12/06/19 History Topiramate [Topamax] 50 mg PO HS 09/05/19 12/06/19 History tiZANidine [Zanaflex] 4 mg PO HS 09/05/19 12/06/19 History Cyanocobalamin [Vitamin B-12] 250 mcg PO DAILY 10/28/19 12/06/19 History Ergocalciferol (Vitamin D2) 1,250 mcg PO DAILY 10/28/19 12/06/19 History [Vitamin D2] Furosemide [Lasix] 20 mg PO DAILY 12/06/19 12/06/19 History Losartan [Cozaar] 25 mg PO DAILY 12/06/19 12/06/19 History Midodrine HCl [ProAmatine] 10 mg PO TID 12/06/19 12/06/19 History Umeclidinium [place] [Incruse 1 puff INHALATION DAILY 12/06/19 12/06/19 History Ellipta] calcitrioL [Rocaltrol] 0.25 mcg PO Q7D 12/06/19 12/06/19 History Allergies Allergy/AdvReac Type Severity Reaction Status Date / Time No Known Allergies Allergy Verified 12/06/19 10:45 Physical Exam Vitals: Vital Signs Temp Pulse Pulse Resp BP Pulse Ox 12/08/19 08:59 68 12/08/19 08:44 64 12/08/19 04:53 97.6 F 52 L 17 115/54 94 L 12/07/19 20:37 98.0 F 10/07/20 19:38 97.3 F L 54 L 23 94/50 95 12/07/19 19:28 69 12/07/19 19:21 69 12/07/19 15:24 69 12/07/19 15:12 68 12/07/19 11:25 67 12/07/19 11:21 97.3 F L 52 L 18 109/60 100 12/07/19 11:07 66 Intake and Output 12/07/19 12/08/19 12/08/19 22:59 06:59 14:59 Intake Total 500 990 240 Balance 500 990 240 Intake: Intake, IV Titration 200 400 Amount Sodium Chloride 0.9% 1, 200 400 000 ml @ 50 mls/hr IV . Q20H [facility] Rx#:[id number] Oral 300 590 240 Other: Voiding Method Toilet Toilet # Voids 1 2 1 On physical examination, patient appears comfortable in no apparent distress. HEAD: Normocephalic, atraumatic. EYES: No scleral icterus. No conjunctival injection. MOUTH: No lesions, tongue midline. NECK: Trachea midline, no gross abnormalities. CHEST: Clear to auscultation with no wheezing or rhonchi appreciated. HEART: S1-S2 appreciated. ABDOMEN: Soft, obese, nontender to palpation. Bowel sounds are positive. No organomegaly. No guarding or rigidity. EXTREMITIES: No pedal edema. SKIN: No rashes, no jaundice. NEUROLOGIC: Alert and oriented x3. No focal deficits. Results CBC & Chem 7: 12/08/19 05:46 12/06/19 11:52 Labs: Abnormal Lab Results - Last 24 Hours (Table) 12/07/19 12/07/19 12/07/19 Range/Units 04:18 11:22 17:02 RBC (3.80-5.40) m/uL Hgb (11.4-16.0) gm/dL RDW (11.5-15.5) % Plt Count (150-450) k/uL POC Glucose (mg/dL) 219 H 167 H (75-99) mg/dL Hemoglobin A1c 8.1 H (4.0-6.0) % 12/07/19 12/08/19 12/08/19 Range/Units 20:33 05:46 07:06 RBC 3.65 L (3.80-5.40) m/uL Hgb 11.0 L (11.4-16.0) gm/dL RDW 15.8 H (11.5-15.5) % Plt Count 106 L (150-450) k/uL POC Glucose (mg/dL) 237 H 178 H (75-99) mg/dL Hemoglobin A1c (4.0-6.0) % Microbiology - Last 24 Hours (Table) 12/07/19 18:34 Stool Culture - Preliminary Stool 12/06/19 21:33 Urine Culture - Preliminary Urine,Voided CT scan - abdomen: report reviewed (No acute intra-abdominal pathology on computed tomography scan) Assessment and Plan (1) Diarrhea Narrative/Plan: 64-year-old female presenting with complaints of 2 months of loose frequent bowel movements. She reports associated urgency with bowel movements. She does report increased stress. No bleeding reported. Last colonoscopy 5 years ago with the surgical service and normal per the patient report. Unclear etiology, may be functional in nature, infectious, rule out other etiologies such as sensitivity, bacterial or paracytic-induced diarrhea or other etiology. Current Visit: Yes Status: Acute Code(s): R19.7 - DIARRHEA, UNSPECIFIED SNOMED Code(s): 52108748 Plan: Supportive care Clear liquid diet Stool studies ordered Celiac panel or ordered Can consider addition of cholestyramine or antidiarrheal if stool studies are negative Computed tomography scan of the abdomen reviewed with no acute intra-abdominal findings Thank you for allowing us to participate in the care of the patient
[2019-12-08 12:05] LABS: Glucose,Whole Blood 282 mg/dL (75-99)
[2019-12-08] MEDS: CHOLESTYRAMINE (WITH SUGAR) 4 GM PACKET PO SCH (12:44)
--- NOTE | 2019-12-08 13:18 | P.PN ---
Subjective Progress Note Date: 12/08/19 Principal diagnosis: Diarrhea and nausea The patient was seen and examined at the bedside. She has been up and showered. States she is feeling somewhat better. She did have 2-3 loose bowel movements yesterday afternoon and evening. She has mild nausea, however no vomiting. She states that she has been under a lot of stress and anxiety over the last year, as well as recently due to chronic health conditions. The patient states she would like to eat. She denies any melena or rectal bleeding. C. diff results came back negative. Stool studies are pending. Objective - Vital Signs Vital signs: Vital Signs Temp 97.6 F 12/08/19 12:09 Pulse 72 12/08/19 12:30 Resp 16 12/08/19 12:09 BP 101/57 12/08/19 12:09 Pulse Ox 94 L 12/08/19 12:09 Intake & Output 12/07/19 12/08/19 12/08/19 18:59 06:59 18:59 Intake Total 400 1490 240 Balance 400 1490 240 Weight 105.3 kg Intake: Intake, IV Titration 400 600 Amount Sodium Chloride 0.9% 1, 400 600 000 ml @ 50 mls/hr IV . Q20H [facility] Rx#:[id number] Oral 890 240 Other: Voiding Method Toilet Toilet # Voids 2 1 - Exam General appearance: The patient is alert, oriented, in no acute distress. Obese. HET: Head is normocephalic and atraumatic. Conjunctiva pink. Sclera and icteric. Neck: Supple without lymphadenopathy. Abdomen: Soft, obese, diffuse tenderness, nondistended with bowel sounds. No guarding or rigidity. Extremities: Normal skin color and turgor. No pedal edema Neurological: No focal deficits. Alert and oriented 3. - Labs CBC & Chem 7: 12/08/19 05:46 12/08/19 05:46 Labs: Abnormal Lab Results - Last 24 Hours (Table) 12/07/19 12/07/19 12/07/19 Range/Units 04:18 17:02 20:33 RBC (3.80-5.40) m/uL Hgb (11.4-16.0) gm/dL RDW (11.5-15.5) % Plt Count (150-450) k/uL Chloride (96-109) mmol/L Est GFR (CKD-EPI)AfAm (60.0-200.0) Est GFR (CKD-EPI)NonAf (60.0-200.0) Glucose (70-110) mg/dL POC Glucose (mg/dL) 167 H 237 H (75-99) mg/dL Hemoglobin A1c 8.1 H (4.0-6.0) % Calcium (8.7-10.3) mg/dL 12/08/19 12/08/19 12/08/19 Range/Units 05:46 05:46 07:06 RBC 3.65 L (3.80-5.40) m/uL Hgb 11.0 L (11.4-16.0) gm/dL RDW 15.8 H (11.5-15.5) % Plt Count 106 L (150-450) k/uL Chloride 112 H (96-109) mmol/L Est GFR (CKD-EPI)AfAm 49.9 L (60.0-200.0) Est GFR (CKD-EPI)NonAf 43.0 L (60.0-200.0) Glucose 188 H (70-110) mg/dL POC Glucose (mg/dL) 178 H (75-99) mg/dL Hemoglobin A1c (4.0-6.0) % Calcium 8.6 L (8.7-10.3) mg/dL 12/08/19 Range/Units 11:46 RBC (3.80-5.40) m/uL Hgb (11.4-16.0) gm/dL RDW (11.5-15.5) % Plt Count (150-450) k/uL Chloride (96-109) mmol/L Est GFR (CKD-EPI)AfAm (60.0-200.0) Est GFR (CKD-EPI)NonAf (60.0-200.0) Glucose (70-110) mg/dL POC Glucose (mg/dL) 282 H (75-99) mg/dL Hemoglobin A1c (4.0-6.0) % Calcium (8.7-10.3) mg/dL Microbiology - Last 24 Hours (Table) 12/06/19 21:33 Urine Culture - Final Urine,Voided 12/07/19 18:34 Stool Culture - Preliminary Stool Assessment and Plan (1) Diarrhea Narrative/Plan: Narrative/Plan: 64-year-old female presenting with complaints of 2 months of loose frequent bowel movements. She reports associated urgency with bowel movements. She does report increased stress. No bleeding reported. Last colonoscopy 5 years ago with the surgical service and normal per the patient report. Unclear etiology, may be functional in nature, infectious, rule out other etiologies such as sensitivity, bacterial or paracytic-induced diarrhea or other etiology. Current Visit: Yes Status: Acute Code(s): R19.7 - DIARRHEA, UNSPECIFIED SNOMED Code(s): 53608663 Plan: Supportive care Advance to low fiber consistent carbohydrate diet Stool studies ordered, results negative to date Celiac panel or ordered, results negative Clostridium difficile ordered and negative cholestyramine BID Imodium prn for diarrhea Computed tomography scan of the abdomen reviewed with no acute intra-abdominal findings Follow up as outpatient, May consider outpatient colonoscopy. Thank you for allowing us to participate in the care of the patient The impression and plan of care has been dictated as directed. I performed a history and examination of this patient, discussed the same with the dictator. I agree with the dictator's note ,documented as a scribe. Any additional findings or plans will be noted.
[2019-12-08 16:33] LABS: Gliadin AB IgA, Deaminated NEGATIVE (NEGATIVE); Gliadin AB IgA, Unit 3.1 U/mL; Gliadin AB IgG, Deaminated NEGATIVE (NEGATIVE)
[2019-12-08 17:20] LABS: Glucose,Whole Blood 204 mg/dL (75-99)
[2019-12-08 20:15] LABS: Glucose,Whole Blood 263 mg/dL (75-99)
[2019-12-08] MEDS: IPRATROPIUM-ALBUTEROL 3 ML NEB INHALATION SCH (20:47)
[2019-12-08] MEDS: MONTELUKAST 10 MG TAB PO SCH (21:58)
[2019-12-08] MEDS: ATORVASTATIN 20 MG TAB PO SCH (21:58)
[2019-12-08] MEDS: tiZANidine 4 MG TAB PO SCH (21:59)
[2019-12-08] MEDS: TOPIRAMATE 25 MG TAB PO SCH (21:59)
[2019-12-08] MEDS: ACETAMINOPHEN TAB 325 MG TAB PO PRN (23:12)
--- NOTE | 2019-12-08 23:45 | PN ---
PROGRESS NOTE She has been up and showered. She is on clear liquid diet. She is feeling a little bit better, 2 to 3 loose bowel movements yesterday afternoon and evening, 2 to 3 today. Mild nausea, no vomiting. She has been under a lot of stress and anxiety over the last year she says. She wants to get regular food. Denies melena or rectal bleeding. CBC and stool cultures were all pending. Blood pressure 101/57, respiratory rate 14 to 16. temperature 97.6, pulse 60 to 72, O2 of 94%. CARDIOVASCULAR: S1, S2. LUNGS: Clear. GI: Soft. HEMATOLOGY: Negative Homans. PSYCH: Fair mood. ENDOCRINE: BMI is over 40. ASSESSMENT: 1. Dehydration, improved. 2. Acute on chronic diarrhea. CT scan is normal. Multiple stool cultures are pending. Urine culture is negative. Advance to low-fiber consistent carb diet. Stool studies ordered. Celiac panel is negative. C difficile is negative. cholestyramine b.i.d., Imodium for diarrhea. Possible discharge home tomorrow. Follow up as an outpatient and may get a colonoscopy as an outpatient. MMODL / IJN: [id number] /
[2019-12-09] MEDS: ONDANSETRON 4 MG/2 ML VIAL IVP PRN (00:46)
[2019-12-09 04:27] LABS: Basophils % (A) 0 %; Eosinophils # (A) 0.2 k/uL (0-0.7); Eosinophils % (A) 2 %; HCT 34.3 % (34.0-46.0); HGB 11.1 gm/dL (11.4-16.0); Hypochromasia Slight; Lymphocytes # (A) 1.2 k/uL (1.0-4.8); Lymphocytes % (A) 17 %; MCH 30.5 pg (25.0-35.0); MCHC 32.4 g/dL (31.0-37.0); MCV 94.3 fL (80.0-100.0); Mean Platelet Volume 8.7; Monocytes # (A) 0.4 k/uL (0-1.0); Monocytes % (A) 6 %; Neutrophils # (A) 5.2 k/uL (1.3-7.7); Neutrophils % (A) 74 %; Platelet Count 112 k/uL (150-450); Poikilocytosis Slight; RBC 3.63 m/uL (3.80-5.40); RDW 15.8 % (11.5-15.5); WBC 7.1 k/uL (3.8-10.6)
[2019-12-09] MEDS: HYDROcodone/APAP 7.5-325MG 1 EACH TAB PO PRN (04:35)
[2019-12-09] MEDS: IPRATROPIUM-ALBUTEROL 3 ML NEB INHALATION SCH ×2 (07:03→11:23)
[2019-12-09] MEDS ORDERED: PANTOPRAZOLE 40 MG TABLET PO SCH (07:30)
[2019-12-09 07:40] LABS: Glucose,Whole Blood 216 mg/dL (75-99)
[2019-12-09] MEDS: INSULIN ASPART (NovoLOG) 100 UNIT/ML VIAL SQ SCH ×2 (08:52→13:27)
[2019-12-09] MEDS: MIDODRINE 5 MG TAB PO SCH (08:53)
[2019-12-09] MEDS: MECLIZINE 12.5 MG TAB PO SCH (08:53)
[2019-12-09] MEDS: SPIRONOLACTONE 25 MG TAB PO SCH (08:53)
[2019-12-09] MEDS: CYANOCOBALAMIN 500 MCG TAB PO SCH (08:53)
[2019-12-09] MEDS: FUROSEMIDE 20 MG TAB PO SCH (08:54)
[2019-12-09] MEDS: LOSARTAN 25 MG TAB PO SCH (08:54)
[2019-12-09] MEDS: ASPIRIN 81 MG PO SCH (08:54)
[2019-12-09] MEDS: carvediloL 12.5 MG TAB PO SCH (08:54)
[2019-12-09 10:12] LABS: African American GFR (CKD) 45.6 (60.0-200.0); Albumin 3.3 g/dL (3.80-4.90); Albumin/Globulin Ratio 2.2 (1.60-3.17); Anion Gap 10.2 mmol/L (4.00-12.00); BUN/Creat Ratio 10.71 Ratio (12.00-20.00); Calcium 8.6 mg/dL (8.7-10.3); Carbon Dioxide 23.8 mmol/L (21.6-31.8); Globulin 1.5 g/dL (1.6-3.3); Non-African American GFR(CKD) 39.3 (60.0-200.0); Potassium 3.7 mmol/L (3.5-5.5); Total Bilirubin 0.6 mg/dL (0.3-1.2); Total Protein 4.8 g/dL (6.2-8.2)
[2019-12-09] MEDS: CHOLESTYRAMINE (WITH SUGAR) 4 GM PACKET PO SCH (10:27)
[2019-12-09 11:54] LABS: Glucose,Whole Blood 341 mg/dL (75-99)
[2019-12-09 12:55] VITALS: BP 135/69; PULSE 50; RESP 16; TEMP 98.2
--- NOTE | 2019-12-09 13:02 | P.PN ---
Subjective Progress Note Date: 12/09/19 Principal diagnosis: Diarrhea and nausea The patient was seen and examined at the bedside. She looks much better today. She reports she is feeling much better. Her diarrhea has decreased and only had 2 episodes. They are becoming more formed. She denies any rectal bleeding or melena. Her nausea is improved, she is tolerating her diet. Stool studies to date are negative. Objective - Vital Signs Vital signs: Vital Signs Temp 98.2 F 12/09/19 12:54 Pulse 50 L 12/09/19 12:54 Resp 16 12/09/19 12:54 BP 135/69 12/09/19 12:54 Pulse Ox 95 12/09/19 12:54 Intake & Output 12/08/19 12/09/19 12/09/19 18:59 06:59 18:59 Intake Total 1810 175 Balance 1810 175 Weight 105.3 kg Intake: Intake, IV Titration 175 Amount Sodium Chloride 0.9% 1, 175 000 ml @ 50 mls/hr IV . Q20H [facility] Rx#:[id number] Oral 1810 Other: Voiding Method Toilet # Voids 2 1 1 - Exam General appearance: The patient is alert, oriented, in no acute distress. Obese. HET: Head is normocephalic and atraumatic. Conjunctiva pink. Sclera and icteric. Neck: Supple without lymphadenopathy. Abdomen: Soft, obese, diffuse tenderness, nondistended with bowel sounds. No guarding or rigidity. Extremities: Normal skin color and turgor. No pedal edema Neurological: No focal deficits. Alert and oriented 3. - Labs CBC & Chem 7: 12/09/19 03:41 12/09/19 03:41 Labs: Abnormal Lab Results - Last 24 Hours (Table) 12/08/19 12/08/19 12/09/19 Range/Units 17:18 20:14 03:41 RBC 3.63 L (3.80-5.40) m/uL Hgb 11.1 L (11.4-16.0) gm/dL RDW 15.8 H (11.5-15.5) % Plt Count 112 L (150-450) k/uL Chloride (96-109) mmol/L Est GFR (CKD-EPI)AfAm (60.0-200.0) Est GFR (CKD-EPI)NonAf (60.0-200.0) BUN/Creatinine Ratio (12.00-20.00) Ratio Glucose (70-110) mg/dL POC Glucose (mg/dL) 204 H 263 H (75-99) mg/dL Calcium (8.7-10.3) mg/dL Total Protein (6.2-8.2) g/dL Albumin (3.80-4.90) g/dL Globulin (1.6-3.3) g/dL 12/09/19 12/09/19 12/09/19 Range/Units 03:41 07:37 11:52 RBC (3.80-5.40) m/uL Hgb (11.4-16.0) gm/dL RDW (11.5-15.5) % Plt Count (150-450) k/uL Chloride 110 H (96-109) mmol/L Est GFR (CKD-EPI)AfAm 45.6 L (60.0-200.0) Est GFR (CKD-EPI)NonAf 39.3 L (60.0-200.0) BUN/Creatinine Ratio 10.71 L (12.00-20.00) Ratio Glucose 166 H (70-110) mg/dL POC Glucose (mg/dL) 216 H 341 H (75-99) mg/dL Calcium 8.6 L (8.7-10.3) mg/dL Total Protein 4.8 L (6.2-8.2) g/dL Albumin 3.30 L (3.80-4.90) g/dL Globulin 1.5 L (1.6-3.3) g/dL Microbiology - Last 24 Hours (Table) 12/06/19 21:33 Urine Culture - Final Urine,Voided Assessment and Plan (1) Diarrhea Narrative/Plan: Narrative/Plan: 64-year-old female presenting with complaints of 2 months of loose frequent bowel movements. She reports associated urgency with bowel movements. She does report increased stress. No bleeding reported. Last colonoscopy 5 years ago with the surgical service and normal per the patient report. Unclear etiology, may be functional in nature, infectious, rule out other etiologies such as sensitivity, bacterial or paracytic-induced diarrhea or other etiology. Status: Acute Code(s): R19.7 - DIARRHEA, UNSPECIFIED SNOMED Code(s): 34157328 Plan: Supportive care Advance to low fiber consistent carbohydrate diet Stool studies ordered, results negative to date Celiac panel or ordered, results negative Clostridium difficile ordered and negative cholestyramine BID Imodium prn for diarrhea Computed tomography scan of the abdomen reviewed with no acute intra-abdominal findings Patient may be discharged home from a gastroenterology standpoint with Follow up as outpatient, May consider outpatient colonoscopy. Thank you for allowing us to participate in the care of the patient The above dictated assessment and findings were discussed with Dr. Barros. The impression and plan of care have been directed as dictated.
--- NOTE | 2020-01-02 22:32 | DS ---
DISCHARGE SUMMARY DATE OF ADMISSION: 12/06/2019 DATE OF DISCHARGE: 12/09/2019 DISCHARGE MEDICATIONS: 1. Mag oxide 500 mg b.i.d. 2. Aspirin 81 mg daily. 3. Singulair 10 mg daily. 4. Aldactone 12.5 mg daily. 5. [place] 7.5 t.i.d. p.r.n. 6. Albuterol sulfate HFA 2 puffs q.4 hours p.r.n. 7. NovoLog 13 units subcutaneously before breakfast. 8. Lipitor 20 mg daily. 9. Coreg 12.5 mg b.i.d. 10.Colace 100 mg q.48 hours. 11.Levemir 36 units daily. 12.Zanaflex 4 mg at bedtime. 13.Topamax 50 mg at bedtime. 14.Iron 28 mg once a week. 15.Antivert 12.5 mg b.i.d. 16.NovoLog 15 units before meals b.i.d. 17.Vitamin D2 1250 mcg daily. 18.Rocaltrol 0.25 mcg p.o. q.7 days. 19.Incruse Ellipta 1 puff daily. 20.Midodrine 10 mg before meals t.i.d. 21.Cozaar 25 mg daily. 22.Lasix 20 mg daily. 23.Imodium 2 mg q.4 hours p.r.n. 24.Cholestyramine 4 mg b.i.d. CONDITION: Stable. PROGNOSIS: Guarded. Ambulate as tolerated. This patient is a white female who came in with COPD exacerbation, dehydration, acute abdominal pain. CT scan of the abdomen. Stool cultures were all negative. The patient was rehydrated, treated with some Solu-Medrol and proton pump inhibitors. The patient slowly improved over the next day or two and she was cleared for discharge home after being seen by multiple physicians. GI doctor cleared her. Diet will be regular. Ambulate as tolerated. Condition stable. Prognosis guarded. MMODL / IJN: [id number] /
== END 2019-12-09 13:34 | disposition home or self-care (01) ==
LOC: INTOOBSV 09:57 → 6NMEDSUR 09:57 → UNDODISIN 12-09 13:34
PROVIDERS: ADMIT Family Medicine; ATTEND Family Medicine
DX: E86.0 Dehydration (principal); I25.10 Atherosclerotic heart disease of native coronary artery without angina pectoris; E11.22 Type 2 diabetes mellitus with diabetic chronic kidney disease; I13.0 Hypertensive heart and chronic kidney disease with heart failure and stage 1 through stage 4 chronic kidney disease, or unspecified chronic kidney disease; N18.30 Chronic kidney disease, stage 3 unspecified; I50.9 Heart failure, unspecified; Z20.828 Contact with and (suspected) exposure to other viral communicable diseases; R10.9 Unspecified abdominal pain; K52.9 Noninfective gastroenteritis and colitis, unspecified; Z79.82 Long term (current) use of aspirin; Z79.4 Long term (current) use of insulin; Z79.891 Long term (current) use of opiate analgesic; Z79.899 Other long term (current) drug therapy; E11.42 Type 2 diabetes mellitus with diabetic polyneuropathy; J44.1 Chronic obstructive pulmonary disease with (acute) exacerbation; E78.5 Hyperlipidemia, unspecified; I10 Essential (primary) hypertension; Z87.442 Personal history of urinary calculi; I48.91 Unspecified atrial fibrillation; Z98.890 Other specified postprocedural states; M19.90 Unspecified osteoarthritis, unspecified site; Z87.01 Personal history of pneumonia (recurrent); G47.33 Obstructive sleep apnea (adult) (pediatric); Z99.89 Dependence on other enabling machines and devices; I42.8 Other cardiomyopathies; Z95.810 Presence of automatic (implantable) cardiac defibrillator; D63.1 Anemia in chronic kidney disease; Z87.440 Personal history of urinary (tract) infections; G89.29 Other chronic pain; M54.5 Low back pain; M41.9 Scoliosis, unspecified; G56.03 Carpal tunnel syndrome, bilateral upper limbs; Z90.49 Acquired absence of other specified parts of digestive tract; Z96.652 Presence of left artificial knee joint; Z95.0 Presence of cardiac pacemaker; Z80.0 Family history of malignant neoplasm of digestive organs; Z80.1 Family history of malignant neoplasm of trachea, bronchus and lung
CPT/HCPCS: 96376 ×3; 96374; 96375; 94640 ×7; 93005; 82656; 80053 ×2; 80048; 83735 ×2; 84484; 85025 ×3; 81001; 87324; 83516 ×4; 87086; 87045; 87329; 87328; 83630; 87046; 83036; 74176; G0379; G0378 ×4; U0003; J2405 ×4; C9113 ×2

== ENCOUNTER 2020-01-07 16:51 | Emergency (ER) | payer MEDICARE, OTHER ==
--- NOTE | 2020-01-07 17:10 | ED ---
General Adult HPI - General Chief complaint: Urogenital Stated complaint: vaginal pain Time Seen by Provider: 01/07/20 17:06 Source: patient Mode of arrival: ambulatory Limitations: no limitations - History of Present Illness Initial comments: Patient presents to the ED complaining of having left-sided vaginal pain for the past 2 weeks or so. Patient states that she noted a "bump" on the left side of her vagina when her pain began. Patient states that her pain is worse with changes in position and with ambulation. Patient states that she has had a total abdominal hysterectomy with BSO. Patient denies trauma or injury, fever or chills, headache, chest pain, dyspnea, dizziness, abdominal pain, back or flank pain, nausea or vomiting, diarrhea or constipation, bloody or melanotic stool, dysuria, hematuria, urinary frequency, urinary symptoms, vaginal bleeding or discharge, or any other symptoms or complaints. - Related Data Home Medications Medication Instructions Recorded Confirmed Aspirin EC [Ecotrin Low Dose] 81 mg PO DAILY 11/02/18 12/06/19 Montelukast [Singulair] 10 mg PO HS 11/02/18 12/06/19 Spironolactone [Aldactone] 12.5 mg PO DAILY 11/02/18 12/06/19 Albuterol Sulfate [Albuterol 2 puff INHALATION RT-QID 01/14/19 12/06/19 Sulfate Hfa] HYDROcodone/APAP 7.5-325MG [[place] 1 tab PO TID PRN 01/14/19 12/06/19 7.5-325] Atorvastatin [Lipitor] 20 mg PO HS 09/05/19 12/06/19 Carvedilol [Coreg] 12.5 mg PO BID 09/05/19 12/06/19 Insulin Aspart [NovoLOG Flexpen] 15 units SQ AC-BID@1200,1800 09/05/19 12/06/19 Insulin Detemir [Levemir Flextouch] 36 units SQ HS 09/05/19 12/06/19 Iron 28mg 28 mg PO NORRIS 09/05/19 12/06/19 Meclizine [Antivert] 12.5 mg PO BID 09/05/19 12/06/19 Topiramate [Topamax] 50 mg PO HS 09/05/19 12/06/19 tiZANidine [Zanaflex] 4 mg PO HS 09/05/19 12/06/19 Cyanocobalamin [Vitamin B-12] 250 mcg PO DAILY 10/28/19 12/06/19 Ergocalciferol (Vitamin D2) 1,250 mcg PO DAILY 10/28/19 12/06/19 [Vitamin D2] Furosemide [Lasix] 20 mg PO DAILY 12/06/19 12/06/19 Losartan [Cozaar] 25 mg PO DAILY 12/06/19 12/06/19 Midodrine HCl [ProAmatine] 10 mg PO TID 12/06/19 12/06/19 Umeclidinium [place] [Incruse 1 puff INHALATION DAILY 12/06/19 12/06/19 Ellipta] calcitrioL [Rocaltrol] 0.25 mcg PO Q7D 12/06/19 12/06/19 Previous Rx's Medication Instructions Recorded Insulin Aspart [NovoLOG Flexpen] 13 units SQ AC-BRKFST #0 05/30/19 Cholestyramine (with Sugar) 4 gm PO BID@1000,1800 30 Days #60 12/08/19 [Questran Packet] packet Loperamide [Imodium] 2 mg PO QID PRN cap 12/08/19 Doxycycline Hyclate 100 mg PO Q12H 7 Days #14 tab 01/07/20 Allergies Allergy/AdvReac Type Severity Reaction Status Date / Time No Known Allergies Allergy Verified 01/07/20 16:56 Review of Systems ROS Statement: Those systems with pertinent positive or pertinent negative responses have been documented in the HPI. ROS Other: All systems not noted in ROS Statement are negative. Past Medical History Past Medical History: Atrial Fibrillation, Asthma, Coronary Artery Disease (CAD), Chest Pain / Angina, Heart Failure, Diabetes Mellitus, Hyperlipidemia, Hypertension, Musculoskeletal Disorder, Osteoarthritis (OA), Pneumonia, Renal Disease, Sleep Apnea/CPAP/BIPAP, Vascular Disorder Additional Past Medical History / Comment(s): Afib with ablation-now NSR, idio pathic cardiomyopathy/AICD, IDDM type II, neuropathy bilateral hands/legs/feet, CKD stage III, nephrolithiasis-pt has passed stone once and has had surgical procedures, anemia, UTIs, CARLOS with bipap, bronchitis, orthostatic hypotension with near syncope, vertigo, chronic low back pain/DDD, scoliosis, bilateral carpal tunnel syndrome, bilateral varicosities. History of Any Multi-Drug Resistant Organisms: None Reported Past Surgical History: Ablation, AICD, Appendectomy, Back Surgery, Cardiac Ablation, Section, Cholecystectomy, Heart Catheterization, Hysterectomy, Joint Replacement, Orthopedic Surgery, Pacemaker Additional Past Surgical History / Comment(s): 2011 AICD/pacer, 2012 cardiac cath, 2013 cardiac ablation, R knee arthroscopy, L total knee arthroplasty, pain clinic procedures, D&C, colonoscopy, bilateral leg varicose vein surgery, lithotripsy, surgical removal of stones Past Anesthesia/Blood Transfusion Reactions: No Reported Reaction Additional Past Anesthesia/Blood Transfusion Reaction / Comment(s): Pt has received blood without reaction. Type of Cardiac Device: Permanent Pacemaker, AICD Device Placement Date:: 03/14/2011-Metronic LT CHEST Past Psychological History: Anxiety, Depression Smoking Status: Never smoker Past Alcohol Use History: None Reported Past Drug Use History: None Reported - Past Family History Father Family Medical History: Cancer Additional Family Medical History / Comment(s): stomach Brother(s) Family Medical History: Cancer Additional Family Medical History / Comment(s): lung Sister(s) Family Medical History: Cancer Additional Family Medical History / Comment(s): Sister had stomach/colon/part of pancreas cancers. She is still living. Mother Family Medical History: Cancer Additional Family Medical History / Comment(s): ovarian and cervical General Exam Limitations: no limitations General appearance: alert, in no apparent distress Head exam: Present: atraumatic, normocephalic Eye exam: Present: normal appearance, EOMI ENT exam: Present: mucous membranes moist Neck exam: Present: other (trachea is in midline) Respiratory exam: Present: normal lung sounds bilaterally. Absent: respiratory distress, wheezes, rales, rhonchi Cardiovascular Exam: Present: regular rate, normal rhythm, normal heart sounds, other (normal radial pulses bilaterally) GI/Abdominal exam: Present: soft. Absent: distended, tenderness, guarding External exam: Present: other (left labial tenderness; ED YOGI Millan assisted with pelvic examination). Absent: erythema, swelling, lesions, ecchymosis Speculum exam: Present: normal speculum exam. Absent: erythema, vaginal discharge, vaginal bleeding Neurological exam: Present: alert, oriented X3. Absent: motor sensory deficit Psychiatric exam: Present: normal affect, normal mood Skin exam: Present: warm, dry, intact, normal color Course Vital Signs 01/07/20 01/07/20 01/07/20 16:53 17:55 19:15 Temperature 98.0 F Pulse Rate 89 62 Respiratory 18 18 19 Rate Blood Pressure 113/68 119/65 O2 Sat by Pulse 96 98 Oximetry - Reevaluation(s) Reevaluation #1: 01/07/20 20:05 Patient states that her pain has improved with ED treatment, and she denies development of any new pain or symptoms while in the ED. Patient is aware of her test results, and she feels comfortable going home at this time. Patient states that she will get a ride home from the ED tonight. She was counseled about vaginal pain, and she was clearly explained return and follow-up instructions. Patient was instructed to follow up closely with her primary care provider, as well as an HEALTHCARE ECONOMICS MANAGER doctor. Medical Decision Making - Medical Decision Making Patient's labs and CT abdomen/pelvis with IV contrast are fairly unremarkable. Patient has no visible evidence of infection on pelvic examination, but she is tender with palpation of her left labia. Given this, will treat the patient with a course of antibiotics for possible labial infection. Patient was instructed to, and agrees to, follow-up closely with an HEALTHCARE ECONOMICS MANAGER doctor. - Lab Data Result diagrams: 01/07/20 18:36 01/07/20 18:36 Lab Results 01/07/20 01/07/20 01/07/20 Range/Units 17:30 18:36 18:36 WBC 5.8 (3.8-10.6) k/uL RBC 3.97 (3.80-5.40) m/uL Hgb 12.5 (11.4-16.0) gm/dL Hct 38.5 (34.0-46.0) % MCV 96.8 (80.0-100.0) fL MCH 31.4 (25.0-35.0) pg MCHC 32.4 (31.0-37.0) g/dL RDW 15.0 (11.5-15.5) % Plt Count 104 L (150-450) k/uL Neutrophils % 70 % Lymphocytes % 20 % Monocytes % 6 % Eosinophils % 2 % Basophils % 1 % Neutrophils # 4.1 (1.3-7.7) k/uL Lymphocytes # 1.1 (1.0-4.8) k/uL Monocytes # 0.3 (0-1.0) k/uL Eosinophils # 0.1 (0-0.7) k/uL Basophils # 0.1 (0-0.2) k/uL Sodium 137 (137-145) mmol/L Potassium 4.5 (3.5-5.1) mmol/L Chloride 109 H (98-107) mmol/L Carbon Dioxide 21 L (22-30) mmol/L Anion Gap 7 mmol/L BUN 26 H (7-17) mg/dL Creatinine 1.36 H (0.52-1.04) mg/dL Est GFR (CKD-EPI)AfAm 47 (>60 ml/min/1.73 sqM) Est GFR (CKD-EPI)NonAf 41 (>60 ml/min/1.73 sqM) Glucose 273 H (74-99) mg/dL Calcium 9.7 (8.4-10.2) mg/dL Total Bilirubin 0.8 (0.2-1.3) mg/dL AST 29 (14-36) U/L ALT 21 (4-34) U/L Alkaline Phosphatase 131 H (38-126) U/L Total Protein 6.3 (6.3-8.2) g/dL Albumin 3.9 (3.5-5.0) g/dL Urine Color Light Yellow Urine Appearance Clear (Clear) Urine pH 5.0 (5.0-8.0) Ur Specific [place] 1.010 (1.001-1.035) Urine Protein Negative (Negative) Urine Glucose (UA) 3+ H (Negative) Urine Ketones Negative (Negative) Urine Blood Negative (Negative) Urine Nitrite Negative (Negative) Urine Bilirubin Negative (Negative) Urine Urobilinogen <2.0 (<2.0) mg/dL Ur Leukocyte Esterase Moderate H (Negative) Urine RBC 2 (0-5) /hpf Urine WBC 6 H (0-5) /hpf Ur Squamous Epith Cells 1 (0-4) /hpf Hyaline Casts 6 H (0-2) /lpf Urine Mucus Rare H (None) /hpf - Radiology Data Radiology results: report reviewed (CT abdomen/pelvis with IV contrast is negative) Disposition Clinical Impression: Vaginal pain Disposition: HOME SELF-CARE Condition: Stable Instructions (If sedation given, give patient instructions): Vaginitis (ED) Additional Instructions: Return to the ER if he develop new or worsening pain, swelling, a fever, shortness of breath, vomiting, feeling dizzy or faint, or new or worsening symptoms. Follow up closely with your primary care provider, as well as an HEALTHCARE ECONOMICS MANAGER doctor. Prescriptions: Doxycycline Hyclate 100 mg PO Q12H 7 Days #14 tab Is patient prescribed a controlled substance at d/c from ED?: No Referrals: Vishal Snell MD [Primary Care Provider] - 1-2 days Time of Disposition: 20:09
[2020-01-07 17:37] LABS: Appearance,Urine Clear (Clear); Bilirubin,Urine Negative (Negative); Blood,Urine Negative (Negative); Color,Urine Light Yellow; Glucose,Urine (UA) 3+ (Negative); Hyaline Casts,Urine 6 /lpf (0-2); Ketones,Urine Negative (Negative); Leukocyte Esterase,Urine Moderate (Negative); Mucus,Urine Rare /hpf; Nitrite,Urine Negative (Negative); Protein,Urine Negative (Negative); RBC,Urine 2 /hpf (0-5); Squamous Epithelial Cell,Urine 1 /hpf (0-4); Urobilinogen,Urine <2.0 mg/dL (<2.0); WBC,Urine 6 /hpf (0-5)
[2020-01-07] MEDS ORDERED: SODIUM CHLORIDE 0.9% 1,000 ML IV ONE (18:25)
[2020-01-07 18:45] LABS: Basophils # (A) 0.1 k/uL (0-0.2); Basophils % (A) 1 %; Eosinophils # (A) 0.1 k/uL (0-0.7); Eosinophils % (A) 2 %; HCT 38.5 % (34.0-46.0); HGB 12.5 gm/dL (11.4-16.0); Lymphocytes # (A) 1.1 k/uL (1.0-4.8); Lymphocytes % (A) 20 %; MCH 31.4 pg (25.0-35.0); MCHC 32.4 g/dL (31.0-37.0); MCV 96.8 fL (80.0-100.0); Monocytes # (A) 0.3 k/uL (0-1.0); Monocytes % (A) 6 %; Neutrophils # (A) 4.1 k/uL (1.3-7.7); Neutrophils % (A) 70 %; Platelet Count 104 k/uL (150-450); RBC 3.97 m/uL (3.80-5.40); WBC 5.8 k/uL (3.8-10.6)
[2020-01-07 18:53] LABS: Albumin 3.9 g/dL (3.5-5.0); Calcium 9.7 mg/dL (8.4-10.2); Potassium 4.5 mmol/L (3.5-5.1); Total Bilirubin 0.8 mg/dL (0.2-1.3); Total Protein 6.3 g/dL (6.3-8.2)
[2020-01-07 19:36] VITALS: RESP 19
[2020-01-07] MEDS ORDERED: MORPHINE SULFATE 4 MG/ML SYRINGE IVP STA (19:50)
--- NOTE | 2020-01-07 19:50 | CT ---
EXAMINATION TYPE: CT abdomen pelvis w con DATE OF EXAM: 01/07/2020 COMPARISON: 12/06/2019 HISTORY: Vaginal pain x2 weeks. CT DLP: 2036.2 mGycm Automated exposure control for dose reduction was used. CONTRAST: Performed with IV Contrast, patient injected with 80ml mL of Isovue 300. Lung bases are clear. There is no pleural effusion. Heart is enlarged. There is no pericardial effusi on. Liver spleen pancreas appear intact. Bile ducts are not dilated. There are clips from cholecystec kaila. Stomach is intact. There are a few small splenic cysts. There is no adrenal mass. There are metallic densities in the left kidney. Kidneys show no hydronephr osis. Ureters are not dilated. There is no retroperitoneal adenopathy. Bladder distends smoothly. The re is no inguinal hernia. There is no mesenteric edema. There is no ascites or free air. There is no bowel obstruction. There i s hysterectomy. There is no sign of a pelvic mass. There is posterior fusion surgery in the lower lumbar spine at L4-4. There is multilevel lumbar spond ylotic changes. There is no compression fracture. Bony pelvis is intact. Appendix is not seen. There is no sign of thickened appendix. IMPRESSION: No acute abnormality of the abdomen pelvis. Cardiomegaly unchanged. Left renal metallic densities unc hanged. No pelvic mass.
[2020-01-07] MEDS ORDERED: DOXYCYCLINE 100 MG CAP PO STA (20:02)
[2020-01-07 20:55] VITALS: BP 124/64; PULSE 74; TEMP 97.4
== END 2020-01-07 20:31 | disposition home or self-care (01) ==
LOC: EC 16:51
DX: R10.2 Pelvic and perineal pain (principal); I48.91 Unspecified atrial fibrillation; E11.22 Type 2 diabetes mellitus with diabetic chronic kidney disease; I13.0 Hypertensive heart and chronic kidney disease with heart failure and stage 1 through stage 4 chronic kidney disease, or unspecified chronic kidney disease; I50.9 Heart failure, unspecified; N18.30 Chronic kidney disease, stage 3 unspecified; E11.40 Type 2 diabetes mellitus with diabetic neuropathy, unspecified; I25.119 Atherosclerotic heart disease of native coronary artery with unspecified angina pectoris; J45.909 Unspecified asthma, uncomplicated; E78.5 Hyperlipidemia, unspecified; G47.33 Obstructive sleep apnea (adult) (pediatric); F41.9 Anxiety disorder, unspecified; F32.9 Major depressive disorder, single episode, unspecified; Z79.4 Long term (current) use of insulin; Z79.899 Other long term (current) drug therapy; Z79.82 Long term (current) use of aspirin; Z79.02 Long term (current) use of antithrombotics/antiplatelets; Z79.51 Long term (current) use of inhaled steroids; Z95.0 Presence of cardiac pacemaker; Z90.710 Acquired absence of both cervix and uterus
CPT/HCPCS: 36415; 80053; 85025; 81001; 74177; 99284; 96374; 96361 ×2; J2270; Q9967

== ENCOUNTER 2020-02-09 13:34 | Observation (INO) | payer MEDICARE, OTHER ==
[2020-02-09 16:45] LABS: HCT 39.1 % (34.0-46.0); HGB 12.5 gm/dL (11.4-16.0); MCH 30.6 pg (25.0-35.0); MCHC 32.1 g/dL (31.0-37.0); MCV 95.4 fL (80.0-100.0); Mean Platelet Volume 7.7; Platelet Count 102 k/uL (150-450); RDW 15.3 % (11.5-15.5); WBC 7.2 k/uL (3.8-10.6)
[2020-02-09 16:52] LABS: Prothrombin Time 10.2 sec (9.0-12.0)
[2020-02-09 16:54] LABS: Glucose,Whole Blood 87 mg/dL (75-99)
[2020-02-09 16:58] LABS: Calcium 9.9 mg/dL (8.4-10.2); Potassium 4.4 mmol/L (3.5-5.1)
[2020-02-09] MEDS: HYDROmorphone 0.5 MG/0.5 ML SYRINGE IVP PRN ×2 (17:40→21:29)
[2020-02-09] MEDS: methylPREDNISolone SOD SUCCI 40 MG/ML 1 ML VIAL IV SCH ×2 (17:41→23:27)
[2020-02-09] MEDS: SODIUM CHLORIDE 0.9% 1,000 ML IV SCH (17:41)
[2020-02-09] MEDS ORDERED: HYDROcodone/APAP 7.5-325MG 1 EACH TAB PO PRN (17:58)
[2020-02-09] MEDS ORDERED: LOSARTAN 25 MG TAB PO SCH (21:00)
[2020-02-09] MEDS ORDERED: ASPIRIN 81 MG PO SCH (21:00)
[2020-02-09] MEDS ORDERED: ATORVASTATIN 20 MG TAB PO SCH (21:00)
[2020-02-09] MEDS ORDERED: TOPIRAMATE 25 MG TAB PO SCH (21:00)
[2020-02-09] MEDS ORDERED: MAGNESIUM OXIDE 400 MG TAB PO SCH (21:00)
[2020-02-09] MEDS ORDERED: tiZANidine 4 MG TAB PO SCH (21:00)
[2020-02-09] MEDS ORDERED: MONTELUKAST 10 MG TAB PO SCH (21:00)
[2020-02-09] MEDS ORDERED: INSULIN DETEMIR (LEVEMIR) 100 UNIT/ML SYR SQ SCH (21:00)
[2020-02-09] MEDS: INSULIN ASPART (NovoLOG) 100 UNIT/ML VIAL SQ SCH ×2 (21:05→21:25)
[2020-02-09 21:09] LABS: Glucose,Whole Blood 230 mg/dL (75-99)
[2020-02-09] MEDS: MIDODRINE 5 MG TAB PO SCH (21:23)
[2020-02-09] MEDS: carvediloL 12.5 MG TAB PO SCH (21:23)
[2020-02-09] MEDS: MECLIZINE 12.5 MG TAB PO SCH (21:43)
[2020-02-09] MEDS: CYCLOBENZAPRINE 5 MG TAB PO SCH (21:43)
[2020-02-09] MEDS: ALBUTEROL NEBULIZED 2.5 MG/3 ML INHALATION SCH (22:29)
[2020-02-09] MEDS: FLUTICASONE 110 MCG INHALER INHALATION SCH (22:30)
[2020-02-10] MEDS: HYDROmorphone 0.5 MG/0.5 ML SYRINGE IVP PRN ×2 (04:05→09:28)
[2020-02-10 06:54] LABS: Glucose,Whole Blood 295 mg/dL (75-99)
[2020-02-10] MEDS: carvediloL 12.5 MG TAB PO SCH (07:05)
[2020-02-10] MEDS: INSULIN ASPART (NovoLOG) 100 UNIT/ML VIAL SQ SCH ×3 (07:05→12:10)
[2020-02-10] MEDS: MIDODRINE 5 MG TAB PO SCH ×2 (07:05→12:13)
[2020-02-10] MEDS: ALBUTEROL NEBULIZED 2.5 MG/3 ML INHALATION SCH ×2 (07:26→11:11)
[2020-02-10 07:30] VITALS: RESP 16
[2020-02-10] MEDS ORDERED: INSULIN ASPART (NovoLOG) 100 UNIT/ML VIAL SQ SCH (07:30)
[2020-02-10] MEDS: FLUTICASONE 110 MCG INHALER INHALATION SCH (08:51)
[2020-02-10] MEDS ORDERED: SPIRONOLACTONE 25 MG TAB PO SCH (09:00)
[2020-02-10] MEDS ORDERED: FUROSEMIDE 10 MG TAB PO SCH (09:00)
[2020-02-10] MEDS: methylPREDNISolone SOD SUCCI 40 MG/ML 1 ML VIAL IV SCH (09:23)
[2020-02-10] MEDS: MECLIZINE 12.5 MG TAB PO SCH (09:24)
[2020-02-10] MEDS: CYCLOBENZAPRINE 5 MG TAB PO SCH (09:24)
--- NOTE | 2020-02-10 09:24 | HP ---
HISTORY AND PHYSICAL DATE OF SERVICE: 02/09/2020 A 64-year-old white female who was admitted with acute lumbar disc herniation, unable to lift her leg, severe pain in her back, retractable back pain 8/10, unable to ambulate. She is admitted for an epidural shot. She was given IV Solu-Medrol, muscle relaxers, pain medicines overnight. She has history diabetes, COPD, CHF, hypertension, obesity. MEDICATIONS: Include Coreg 12.5 b.i.d., Flexeril 5 b.i.d., Lipitor 20 daily, aspirin 81 mg daily, DuoNeb updraft q.i.d., [place] 7.5 t.i.d., insulin 15 units a.c. b.i.d. and 13 units for breakfast, Levemir 36 at night, Cozaar 25 daily, Mag oxide 800 daily, meclizine 12.5 q.12, 40 q.8, midodrine 5 mg a.c. t.i.d., Singulair 10 mg daily, spironolactone 12.5 mg daily, Zanaflex 4 mg q.h.s., Topamax 50 q.h.s. CONDITION: Stable. PROGNOSIS: Guarded. HOSPITAL COURSE OF EVENTS: A 64-year-old white female who looks in 8/10 pain. The straight leg raising test bilaterally to 30 degrees. There is palpation lumbar spine, paraspinal muscles. She has decreased knee reflexes. CARDIOVASCULAR: S1, S2. LUNGS: Clear. GI: Soft, obesity. HEMATOLOGY: Negative Homans. PSYCH: Flat mood and affect. NEUROLOGIC: Alert and oriented. Cranial nerves are intact. ASSESSMENT: Acute lumbar disc herniation, irretractable pain control, insulin-dependent diabetes mellitus. Vertigo, asthma, COPD, systolic CHF. PLAN: Continue with IV steroids, if Anesthesia cannot see her will discharge her home and set up an epidural for next week, if they are unable to do an epidural in the hospital, date of service is 02/09/2020. Diet will be as tolerated. MMODL / IJN: [id number] /
[2020-02-10 11:04] VITALS: BP 112/66; TEMP 97.8
--- NOTE | 2020-02-10 11:14 | DS ---
DISCHARGE SUMMARY This is a 64-year-old white female who was admitted with irretractable back pain, lumbar disc disease antibiotic associated diarrhea, atypical chest pain, cardiomyopathy, chronic CHF, dehydration, diabetes, epidural shot was not available while in the hospital. She was given IV Solu-Medrol overnight at which time showed to be set up as an outpatient as no intervention was done today on Thursday, she will have to follow up in outpatient to do an epidural shot of the lumbar spine. MEDICATIONS: Please see list. Continue home medications including aspirin 81 mg daily, Singulair 10 mg daily, Aldactone 12.5 daily, albuterol inhaler 2 puffs q.i.d., [place] 7.5 t.i.d. Lipitor 20 daily, Coreg 12.5 b.i.d., iron 28 mg daily, Antivert 12.5 b.i.d., Topamax 50 daily, insulin as mentioned above, she takes insulin at home. She will continue on the insulin, [place] 7.5 t.i.d., Zanaflex 4 mg at night, Topamax 250 q.h.s. calcitriol 0.25 mcg on Sundays, Cozaar 25 mg daily, Lasix 10 mg daily. Follow up in the office in a week. MMODL / IJN: [id number] /
[2020-02-10 11:21] VITALS: PULSE 58
[2020-02-10 11:57] LABS: Glucose,Whole Blood 247 mg/dL (75-99)
[2020-02-10] MEDS: SODIUM CHLORIDE 0.9% 1,000 ML IV SCH (12:13)
[2020-02-11] MEDS ORDERED: DOCUSATE 100 MG CAP PO SCH (09:00)
== END 2020-02-10 15:10 | disposition home or self-care (01) ==
LOC: 1SOBS 15:39
PROVIDERS: ADMIT Family Medicine; ATTEND Family Medicine
DX: M51.26 Other intervertebral disc displacement, lumbar region (principal); R07.89 Other chest pain; I42.9 Cardiomyopathy, unspecified; I50.9 Heart failure, unspecified; E86.0 Dehydration; E11.9 Type 2 diabetes mellitus without complications; I11.0 Hypertensive heart disease with heart failure; I50.20 Unspecified systolic (congestive) heart failure; J44.9 Chronic obstructive pulmonary disease, unspecified; E66.9 Obesity, unspecified; Z68.38 Body mass index [BMI] 38.0-38.9, adult; K52.1 Toxic gastroenteritis and colitis; T36.95XA Adverse effect of unspecified systemic antibiotic, initial encounter; Z79.899 Other long term (current) drug therapy; Z79.82 Long term (current) use of aspirin; Z79.891 Long term (current) use of opiate analgesic; Z79.4 Long term (current) use of insulin; Z53.8 Procedure and treatment not carried out for other reasons
CPT/HCPCS: 96374; 96375; 96376 ×2; 94640 ×2; 80048; 85027; 85610; G0378 ×2; G0379; J2920 ×2; J1170 ×2

== ENCOUNTER → 2020-02-27 | Outpatient (CLI) | payer MEDICARE, OTHER ==
[2020-02-27 13:04] VITALS: BP 126/74; PULSE 65; RESP 20; TEMP 97.3
--- NOTE | 2020-02-27 13:35 | P.PAINCN ---
History of Present Illness - Reason for Consult Consult date: 02/27/20 - History of Present Illness 64-year-old female presents as a new patient to the [facility] pain clinic, she was referred by Dr. Vishal Snell. She status post multiple lumbar surgeries, most recently a lumbar fusion would appears to be L4-L5, L5-S1 done by Dr. Rojas out of [facility]. She states after that surgery she had significant relief of her low back pain and radicular symptoms into her lower extremities however since September has been having significant low back pain radicular pain down her left leg along the L5 nerve root dermatome. She has a history of bowel and bladder incontinence/irregularities. She denies any significant increase in incontinence. She does report having some episodes of leg weakness since caused her to sit down until she "gets feeling" back and her legs. She denies any recent falls. Pain today is an 8 out of 10 in severity at its worse 10. Describes it as a throbbing aching pain in her low back with radicular pain down her left leg she does develop some symptoms in her right leg. She has difficulty with standing for long periods or sitting for long periods. Her activities been severely limited over the past few months, and it has progressively been getting worse. The surgery last year was a third revision, after one of her other surgery she states she was completely debilitated for years until this most recent one. She is not at the level of "disability" she was prior previous surgeries. She has not seen Dr. Rojas and has hesitant to go to drive all the way down to [facility] and [facility] because she is unsure she be able to drive herself that distance. She has also seen Dr. Ugarte prior to her most recent surgery, and he climbed to operate on her at the time. In addition to above, 13-point review of systems is also negative for chest pain, shortness of breath, changes in vision, changes in hearing, new onset weakness, abdominal pain, diarrhea, extreme fatigue, malaise, fever, skin changes, homicidal or suicidal ideation. Vital Signs: Reviewed in EMR Gen: AAOx3 mild distress HEENT: NCAT, EOMI, hearing grossly normal Pulm: resp unlabored Abd: soft, NT, ND Neck: supple, trachea midline Lumbar spine: Limited secondary to patient's pain and discomfort. Palpation: No tenderness to palpation Inspection: surgical incision looks clean dry and intact Range of motionReduced flexion and extension Neuromuscular: Sensation decreased along L5 dermatome on the left, reflexes are absent is slightly diminished in the left compared to right. There is some weakness with dorsiflexion of the left versus right 4/5 on the left given limited physical exam. Gait: Antalgic gait, no assist device utilized Neuro: CN II-XII grossly intact, muscle strength lower extremities PRESERVED Assessment: 1. lumbar postlaminectomy syndrome 2. lumbar radiculopathy 3. Lumbar degenerative disc disease Plan: 1. Explanation: Opioid and psychological risk scores were reviewed. Diagnoses, prognoses, and multiple treatment options including but not limited to physical therapy, interventional therapies, adjuvant medical therapies, narcotic medication therapies, and surgery were discussed with the patient and all questions were answered to the patient's satisfaction. 2. Opioid agreement: not signed today 3. Counseling: None at the moment 4. Procedures: Caudal epidural to be scheduled soon. Risks and benefits discussed with the patient. 5. Consultations: We'll refer her to Dr. Meeks for immediate evaluation. 6. Investigations: We'll order a CT lumbar spine. Patient has a pacemaker in place and cannot get an MRI 7. Medications: None at the moment. 8. Disposition: I highly recommended patient be evaluated by a orthopedic environmental monitoring specialist immediately for evaluation. I made her aware of red flex symptoms of urinary bowel incontinence as well as significant lower extremity weakness and saddle anesthesia. We discussed performing a caudal epidural steroid injection to help alleviate some of her painful symptoms especially along the left L5 dermatome. Past Medical History Past Medical History: Atrial Fibrillation, Asthma, Coronary Artery Disease (CAD), Chest Pain / Angina, Heart Failure, Diabetes Mellitus, Hyperlipidemia, Hypertension, Musculoskeletal Disorder, Osteoarthritis (OA), Pneumonia, Renal Disease, Sleep Apnea/CPAP/BIPAP, Vascular Disorder Additional Past Medical History / Comment(s): Afib with ablation-now NSR, idiopathic cardiomyopathy/AICD, IDDM type II, neuropathy bilateral hands/legs/feet, CKD stage III, nephrolithiasis-pt has passed stone once and has had surgical procedures, anemia, UTIs, CARLOS with bipap, bronchitis, orthostatic hypotension with near syncope, vertigo, chronic low back pain/DDD, scoliosis, bilateral carpal tunnel syndrome, bilateral varicosities. History of Any Multi-Drug Resistant Organisms: None Reported Past Surgical History: Ablation, AICD, Appendectomy, Back Surgery, Cardiac Ablation, Section, Cholecystectomy, Heart Catheterization, Hysterectomy, Joint Replacement, Orthopedic Surgery, Pacemaker Additional Past Surgical History / Comment(s): 2011 AICD/pacer, 2012 cardiac cath, 2013 cardiac ablation, R knee arthroscopy, L total knee arthroplasty, pain clinic procedures, D&C, colonoscopy, bilateral leg varicose vein surgery, lithotripsy, surgical removal of stones Past Anesthesia/Blood Transfusion Reactions: No Reported Reaction Additional Past Anesthesia/Blood Transfusion Reaction / Comm: Pt has received blood without reaction. Type of Cardiac Device: Permanent Pacemaker, AICD Device Placement Date:: 03/14/2011-Metronic LT CHEST Past Psychological History: Anxiety, Depression Additional Psychological History / Comment(s): Pt has a nephew with short term memory problems for whom she is caregiver. Pt is disabled. She uses no assistive devices. She drives Smoking Status: Never smoker Past Alcohol Use History: None Reported Additional Past Alcohol Use History / Comment(s): Never smoker Past Drug Use History: None Reported - Past Family History Father Family Medical History: Cancer Additional Family Medical History / Comment(s): stomach Brother(s) Family Medical History: Cancer Additional Family Medical History / Comment(s): lung Sister(s) Family Medical History: Cancer Additional Family Medical History / Comment(s): Sister had stomach/colon/part of pancreas cancers. She is still living. Mother Family Medical History: Cancer Additional Family Medical History / Comment(s): ovarian and cervical Medications and Allergies Home Medications Medication Instructions Recorded Confirmed Type Aspirin EC [Ecotrin Low Dose] 81 mg PO HS 11/02/18 02/22/20 History Montelukast [Singulair] 10 mg PO HS 11/02/18 02/22/20 History Spironolactone [Aldactone] 12.5 mg PO DAILY 11/02/18 02/22/20 History Albuterol Sulfate [Albuterol 2 puff INHALATION RT-QID 01/14/19 02/22/20 History Sulfate Hfa] HYDROcodone/APAP 7.5-325MG [[place] 1 tab PO TID PRN 01/14/19 02/22/20 History 7.5-325] Atorvastatin [Lipitor] 20 mg PO HS 09/05/19 02/22/20 History Carvedilol [Coreg] 12.5 mg PO BID 09/05/19 02/22/20 History Iron 28mg 28 mg PO NORRIS 09/05/19 02/22/20 History Meclizine [Antivert] 12.5 mg PO Q12H 09/05/19 02/22/20 History Topiramate [Topamax] 50 mg PO HS 09/05/19 02/22/20 History tiZANidine [Zanaflex] 4 mg PO HS 09/05/19 02/22/20 History Furosemide [Lasix] 10 mg PO DAILY 12/06/19 02/22/20 History Losartan [Cozaar] 25 mg PO HS 12/06/19 02/22/20 History calcitrioL [Rocaltrol] 0.25 mcg PO NORRIS 12/06/19 02/22/20 History Budesonide [Pulmicort Flexhaler] 2 puff INHALATION RT-BID 02/09/20 02/22/20 History Cyclobenzaprine [Flexeril] 5 mg PO BID 02/09/20 02/22/20 History Docusate [Colace] 100 mg PO Q48H 02/09/20 02/22/20 History Ergocalciferol [Vitamin D2 50,000 unit PO Q28D 02/09/20 02/22/20 History (DRISDOL)] Insulin Glargine,Hum.rec.anlog 36 unit SQ HS 02/09/20 02/22/20 History [Lantus Solostar] Insulin Lispro [humaLOG Kwikpen] 13 unit SQ AC-BRKFST 02/09/20 02/22/20 History Insulin Lispro [humaLOG Kwikpen] 15 unit SQ AC-BID@1200,1800 02/09/20 02/22/20 History Magnesium Oxide [Shaikh] 1,000 mg PO HS 02/09/20 02/22/20 History Midodrine [ProAmatine] 5 mg PO TID 02/09/20 02/22/20 History Dupilumab [Dupixent Pen] 300 mg SQ Q14D 02/22/20 02/22/20 History Allergies Allergy/AdvReac Type Severity Reaction Status Date / Time No Known Allergies Allergy Verified 02/22/20 14:12 Physical Exam Vitals: Vital Signs Temp Pulse Resp BP Pulse Ox 02/27/20 13:00 97.3 F L 65 20 126/74 100 PQRS Measure Charge Sheet PQRS Narrative: Smoking Status Never smoker Blood Pressure 126/74 Pain Intensity [Lower Back] 10 Scale Used Numeric (1 - 10) Hx Alcohol Use (MH) No Home Medications: Ambulatory Orders Aspirin EC [Ecotrin Low Dose] 81 mg PO HS 11/02/18 Montelukast [Singulair] 10 mg PO HS 11/02/18 Spironolactone [Aldactone] 12.5 mg PO DAILY 11/02/18 Albuterol Sulfate [Albuterol Sulfate Hfa] 2 puff INHALATION RT-QID 01/14/19 HYDROcodone/APAP 7.5-325MG [[place] 7.5-325] 1 tab PO TID PRN 01/14/19 Atorvastatin [Lipitor] 20 mg PO HS 09/05/19 Carvedilol [Coreg] 12.5 mg PO BID 09/05/19 Iron 28mg 28 mg PO NORRIS 09/05/19 Meclizine [Antivert] 12.5 mg PO Q12H 09/05/19 Topiramate [Topamax] 50 mg PO HS 09/05/19 tiZANidine [Zanaflex] 4 mg PO HS 09/05/19 Furosemide [Lasix] 10 mg PO DAILY 12/06/19 Losartan [Cozaar] 25 mg PO HS 12/06/19 calcitrioL [Rocaltrol] 0.25 mcg PO NORRIS 12/06/19 Budesonide [Pulmicort Flexhaler] 2 puff INHALATION RT-BID 02/09/20 Cyclobenzaprine [Flexeril] 5 mg PO BID 02/09/20 Docusate [Colace] 100 mg PO Q48H 02/09/20 Ergocalciferol [Vitamin D2 (DRISDOL)] 50,000 unit PO Q28D 02/09/20 Insulin Glargine,Hum.rec.anlog [Lantus Solostar] 36 unit SQ HS 02/09/20 Insulin Lispro [humaLOG Kwikpen] 13 unit SQ AC-BRKFST 02/09/20 Insulin Lispro [humaLOG Kwikpen] 15 unit SQ AC-BID@1200,1800 02/09/20 Magnesium Oxide [Shaikh] 1,000 mg PO HS 02/09/20 Midodrine [ProAmatine] 5 mg PO TID 02/09/20 Dupilumab [Dupixent Pen] 300 mg SQ Q14D 02/22/20
== END | disposition home or self-care (01) ==
LOC: PNWHC3 12:33
PROVIDERS: ATTEND Anesthesiology
DX: Z48.811 Encounter for surgical aftercare following surgery on the nervous system (principal); M51.16 Intervertebral disc disorders with radiculopathy, lumbar region; M96.1 Postlaminectomy syndrome, not elsewhere classified; J45.909 Unspecified asthma, uncomplicated; M19.90 Unspecified osteoarthritis, unspecified site; E11.22 Type 2 diabetes mellitus with diabetic chronic kidney disease; I12.9 Hypertensive chronic kidney disease with stage 1 through stage 4 chronic kidney disease, or unspecified chronic kidney disease; N18.30 Chronic kidney disease, stage 3 unspecified; Z98.1 Arthrodesis status; Z79.891 Long term (current) use of opiate analgesic; Z79.82 Long term (current) use of aspirin; Z79.899 Other long term (current) drug therapy; Z79.51 Long term (current) use of inhaled steroids; Z79.4 Long term (current) use of insulin
CPT/HCPCS: 99211

== ENCOUNTER → 2020-03-08 | Outpatient (CLI) | payer MEDICARE, OTHER ==
--- NOTE | 2020-03-08 13:48 | CT ---
EXAMINATION TYPE: CT lumbar spine wo con DATE OF EXAM: 03/08/2020 COMPARISON: 02/06/2017 HISTORY: 64-year-old female M47.816, spondylosis, stenosis, low back pain TECHNIQUE: Contiguous axial scanning of the lumbar spine without IV contrast. Coronal and sagittal re constructions performed. CT DLP: 1369 mGycm Automated exposure control for dose reduction was used. FINDINGS: 7 mm cortical lesion anterior upper pole right kidney unchanged from 2017 suggesting a cyst. Some typ e of surgical material is present within the left kidney, unchanged from prior. Degenerative change at the left SI joint. Fatty atrophy of the paraspinal musculature in the lower lumbar spine and sacral region. Overall alignment is maintained. Vertebral body heights are preserved. At L5-S1, redemonstrated left-sided posterior and interbody lumbosacral fusion. There is mature later al osseous fusion along the posterior elements. Continued moderate to severe left and moderate right neuroforaminal stenosis at this level. Interval placement of L3-L4 posterior and interbody fusion. Persistent changes of DISH throughout the visualized spine with bridging endplate spondylosis through out the more cephalad levels. At the fused L3-L4 level, there is persistent disc osteophyte complex which may contribute to a moder ate focal spinal canal stenosis, similar to prior. Moderate left and [id number] right neural fo raminal stenosis. At L4-L5, in between the fused levels, there is hypertrophic facet arthropathy with moderate bilatera l neural foraminal stenosis. No significant spinal canal stenosis clearly seen. At L2-L3, there is persistent large disc osteophyte complex causing a moderate spinal canal stenosis. Moderate left and mild right neuroforaminal stenosis. No significant spinal canal stenosis or neuroforaminal stenosis of the more cephalad levels. IMPRESSION: 1. OLD INTERBODY AND LEFT-SIDED POSTERIOR LUMBAR FUSION AT L5-S1. SIMILAR MODERATE TO SEVERE LEFT AND MODERATE RIGHT NEUROFORAMINAL STENOSIS. 2. INTERVAL PLACEMENT OF L3-L4 POSTERIOR AND INTERBODY FUSION COMPARED TO 2017. PERSISTENT DISC OS TEOPHYTE COMPLEX MAY CONTRIBUTE TO MODERATE FOCAL SPINAL CANAL STENOSIS. MODERATE LEFT AND MILD-TO-MO DERATE RIGHT NEUROFORAMINAL STENOSIS. 3. AT L2-L3, THERE IS A PERSISTENT LARGE DISC OSTEOPHYTE COMPLEX CAUSING MODERATE SPINAL CANAL STENOS IS. MODERATE LEFT AND MILD RIGHT NEUROFORAMINAL STENOSIS. 4. IN BETWEEN THE FUSED LEVELS, AT L4-L5, HYPERTROPHIC FACET ARTHROPATHY AND DEGENERATIVE DISC DISEAS E CONTRIBUTES TO MODERATE BILATERAL NEUROFORAMINAL STENOSIS. 5. DISH WITH MATURE BRIDGING ENDPLATE SPONDYLOSIS FROM L3 AND ABOVE.
== END | disposition home or self-care (01) ==
LOC: RADCTMAIN 11:10
PROVIDERS: ATTEND Anesthesiology
DX: M48.061 Spinal stenosis, lumbar region without neurogenic claudication (principal); M51.36 Other intervertebral disc degeneration, lumbar region; M47.816 Spondylosis without myelopathy or radiculopathy, lumbar region; M25.78 Osteophyte, vertebrae; Z98.1 Arthrodesis status
CPT/HCPCS: 72131

== ENCOUNTER 2020-03-23 11:19 | Day surgery (SDC) | payer MEDICARE, OTHER ==
[2020-03-21 12:46] VITALS: BMI 38.9
[~2020-03-23 11:19] MED LIST changes: +LACTATED RINGERS 1,000 ML IV SCH; -REGADENOSON 0.4 MG/5 ML SYRINGE IV ONE
[2020-03-23 11:42] VITALS: TEMP 97.5
[2020-03-23 12:14] LABS: Glucose,Whole Blood 204 mg/dL (75-99)
[2020-03-23] MEDS ORDERED: methylPREDNISolone ACETATE 40 MG/ML 1 ML VIAL ONE (12:26)
[2020-03-23] MEDS ORDERED: IOPAMIDOL M200 10 ML VIAL ONE (12:26)
[2020-03-23] MEDS ORDERED: SODIUM CHLORIDE 0.9% (PF) 10 ML VIAL ONE (12:26)
[2020-03-23] MEDS ORDERED: fentaNYL (PF) 50 MCG/ML 2 ML AMP ONE (12:28)
[2020-03-23] MEDS ORDERED: MIDAZOLAM 2 MG/2 ML VIAL ONE (12:28)
--- NOTE | 2020-03-23 12:46 | P.PCN ---
Date of Procedure: 03/23/20 Procedure(s) Performed: PREOP DIAGNOSIS: 1- Lumbar postlaminectomy syndrome. POSTOP DIAGNOSIS:1- Lumbar postlaminectomy syndrome. PROCEDURE: 1-Caudal epidural steroid injection with epidurolysis and epidurogram under fluoroscopic guidance. (Fluoroscopy images available in the radiology Department ) 2-caudal epidurogram. ANESTHESIA: Monitored anesthesia care provided by anesthesia department. EBL: Minimal. PROCEDURE INDICATION: The patient with post-laminectomy syndrome with low back pain and radiculopathy radiating down in both legs, here for a caudal epidural steroid injection with epidurolysis. PROCEDURE DESCRIPTION: The patient was seen and identified in the preoperative area. Risks, benefits, complications, and alternatives were discussed with the patient. The patient agreed to proceed with the procedure and signed the consent. IV was started, and vital signs were stable. Patient was taken to the OR and time out was completed. The patient was placed in the prone position on procedure table and a pillow was placed under the abdomen to reduce lumbar lordosis. The lumbosacral area was prepped and draped in the usual sterile fashion. Vital signs were closely monitored during the procedure. lateral view and the anterior-posterior plates of the sacrum were identified with infiltration of the area overlying the sacral hiatus with 1% lidocaine .A 17 gauge RK epidural needle was used to advance through the sacral hiatus into the caudal epidural space. Omnipaque 180 dye. 2cc was injected and the position of the needle was verified to be in the midline. A Racz catheter was introduced into the epidural space and was advanced towards the L4-5 interspace under direct fluoroscopic guidance. Multiple passes were made with the catheter for lysis of epidural adhesions. Depo-Medrol 40 mg with 3ml of preservative free Lidocaine 1% and 5 ml of preservative free normal saline was injected slowly. Additional spread was seen to L4 under fluoroscopy. The needle and the catheter were withdrawn intact. EPIDUROGRAM: Omnipaque 180 mg dye 2 ml was injected with spread of the dye into the caudal epidural space and with spread cutoff at L5 prior to epidurolysis. Post epidurolysis dye 2 ml was injected and spread was seen to L3-4.There was further spread of the solution together with the dye above the L3 COMPLICATIONS: None. DISPOSITION / PLANS: The patient was placed in a supine position and transferred to the recovery area in a stable condition for observation and was discharged from the recovery room after meeting discharge criteria. Home discharge instructions given to the patient by the staff. The patient was reexamined prior to discharge. The patient will schedule a follow up in the clinic in 2-4 weeks. note= [place] scheduled to have Caudal epidural steroid injections, but would be more beneficial to the patient to have caudal epidural with lysis of epidural adhesions, and this way we can break the scar tissue" the medication in the area where she has the surgical scar tissue, we checked with her insurance producer and it was approved, to proceed with a caudal epidural steroid injection with lysis of epidural adhesions
[2020-03-23] MEDS ORDERED: IV FLUID CONTINUATION 1,000 ML IV ONE ×2 (12:52)
[2020-03-23 13:13] VITALS: BP 114/71; PULSE 57; RESP 18
--- NOTE | 2020-03-23 13:23 | FL ---
Fluoroscopy HISTORY: Pain 7 seconds fluoroscopy time supplied to the referring clinician. 3 intraoperative C-arm images docume nt the procedure. See dictated report from anesthesia.
== END 2020-03-23 13:34 | disposition home or self-care (01) ==
LOC: ORPAIN 11:19
PROVIDERS: ATTEND Specialist
DX: M51.16 Intervertebral disc disorders with radiculopathy, lumbar region (principal); M96.1 Postlaminectomy syndrome, not elsewhere classified; I25.10 Atherosclerotic heart disease of native coronary artery without angina pectoris; I13.0 Hypertensive heart and chronic kidney disease with heart failure and stage 1 through stage 4 chronic kidney disease, or unspecified chronic kidney disease; I50.9 Heart failure, unspecified; I48.91 Unspecified atrial fibrillation; E11.22 Type 2 diabetes mellitus with diabetic chronic kidney disease; N18.9 Chronic kidney disease, unspecified; E78.5 Hyperlipidemia, unspecified; G47.33 Obstructive sleep apnea (adult) (pediatric); J45.909 Unspecified asthma, uncomplicated; K21.9 Gastro-esophageal reflux disease without esophagitis; Z79.4 Long term (current) use of insulin; Z79.51 Long term (current) use of inhaled steroids; Z79.82 Long term (current) use of aspirin; Z79.899 Other long term (current) drug therapy; Z95.810 Presence of automatic (implantable) cardiac defibrillator
CPT/HCPCS: 62264; J2250; J1030; J3010; Q9966; C1894; 62323

== ENCOUNTER 2020-04-06 07:57 | Day surgery (SDC) | payer MEDICARE, OTHER ==
[~2020-04-06 07:57] MED LIST changes: -LACTATED RINGERS 1,000 ML IV SCH; +PREMYELOGRAM MEDICATION REVIEW 1 EACH MISC PO PRN
[2020-04-06] MEDS ORDERED: SODIUM CHLORIDE 0.9% 500 ML IV SCH (08:15)
== END 2020-04-06 08:50 | disposition home or self-care (01) ==
LOC: RADPROMAIN 07:57
PROVIDERS: ATTEND Orthopaedic Surgery
DX: M54.6 Pain in thoracic spine (principal); Z53.9 Procedure and treatment not carried out, unspecified reason

== ENCOUNTER 2020-04-12 09:46 | Day surgery (SDC) | payer MEDICARE, OTHER ==
[2020-04-11 12:37] VITALS: BMI 39.6
[~2020-04-12 09:46] MED LIST changes: +LACTATED RINGERS 1,000 ML IV SCH; -PREMYELOGRAM MEDICATION REVIEW 1 EACH MISC PO PRN
[2020-04-12 10:02] VITALS: RESP 16; TEMP 97.5
[2020-04-12] MEDS ORDERED: LIDOCAINE 1% (10MG/ML) FOR IV START INTRADERMA ONE (10:04)
[2020-04-12 10:15] LABS: Glucose,Whole Blood 167 mg/dL (75-99)
[2020-04-12] MEDS ORDERED: IOPAMIDOL M200 10 ML VIAL ONE (10:37)
[2020-04-12] MEDS ORDERED: fentaNYL (PF) 50 MCG/ML 2 ML AMP ONE (10:37)
[2020-04-12] MEDS ORDERED: SODIUM CHLORIDE 0.9% (PF) 10 ML VIAL ONE (10:37)
[2020-04-12] MEDS ORDERED: methylPREDNISolone ACETATE 40 MG/ML 1 ML VIAL ONE (10:37)
[2020-04-12] MEDS ORDERED: MIDAZOLAM 2 MG/2 ML VIAL ONE (10:37)
--- NOTE | 2020-04-12 10:50 | P.PCN ---
Date of Procedure: 04/12/20 Procedure(s) Performed: PREOP DIAGNOSIS: 1- Lumbar postlaminectomy syndrome. POSTOP DIAGNOSIS:1- Lumbar postlaminectomy syndrome. PROCEDURE: 1-Caudal epidural steroid injection with epidurolysis and epidurogram under fluoroscopic guidance. (Fluoroscopy images available in the radiology Department ) 2-caudal epidurogram. ANESTHESIA: moderate Sedation with Versed 1 mg ,and fentanyl 50 g EBL: Minimal. PROCEDURE INDICATION: The patient with post-laminectomy syndrome with low back pain and radiculopathy radiating down in both legs, here for a caudal epidural steroid injection with epidurolysis. PROCEDURE DESCRIPTION: The patient was seen and identified in the preoperative area. Risks, benefits, complications, and alternatives were discussed with the patient. The patient agreed to proceed with the procedure and signed the consent. IV was started, and vital signs were stable. Patient was taken to the OR and time out was completed. The patient was placed in the prone position on procedure table and a pillow was placed under the a bdomen to reduce lumbar lordosis. The lumbosacral area was prepped and draped in the usual sterile fashion. Vital signs were closely monitored during the procedure. lateral view and the anterior-posterior plates of the sacrum were identified with infiltration of the area overlying the sacral hiatus with 1% lidocaine .A 17 gauge RK epidural needle was used to advance through the sacral hiatus into the caudal epidural space. Omnipaque 180 dye. 2cc was injected and the position of the needle was verified to be in the midline. A Racz catheter was introduced into the epidural space and was advanced towards the L4-5 interspace under direct fluoroscopic guidance. Multiple passes were made with the catheter for lysis of epidural adhesions. Depo-Medrol 40 mg with 3ml of preservative free Lidocaine 1% and 5 ml of preservative free normal saline was injected slowly. Additional spread was seen to L4 under fluoroscopy. The needle and the catheter were withdrawn intact. EPIDUROGRAM: Omnipaque 180 mg dye 2 ml was injected with spread of the dye into the caudal epidural space and with spread cutoff at L5 prior to epidurolysis. Post epidurolysis dye 2 ml was injected and spread was seen to L3-4.There was further spread of the solution together with the dye above the L3 COMPLICATIONS: None. DISPOSITION / PLANS: The patient was placed in a supine position and transferred to the recovery area in a stable condition for observation and was discharged from the recovery room after meeting discharge criteria. Home discharge instructions given to the patient by the staff. The patient was reexamined prior to discharge. The patient will schedule a follow up in the clinic in 2-4 weeks.
[2020-04-12] MEDS ORDERED: KETOROLAC 15 MG/ML 1 ML VIAL ONE (11:01)
[2020-04-12] MEDS ORDERED: HYDROmorphone 0.5 MG/0.5 ML SYRINGE IVP ONE ×2 (11:03→11:23)
[2020-04-12] MEDS ORDERED: KETOROLAC 15 MG/ML 1 ML VIAL IVP ONE (11:03)
[2020-04-12] MEDS ORDERED: IV FLUID CONTINUATION 1,000 ML IV ONE (11:04)
--- NOTE | 2020-04-12 11:14 | FL ---
Fluoroscopy HISTORY: Pain 5 seconds fluoroscopy time supplied to the referring clinician. 4 intraoperative C-arm images docume nt the procedure. See dictated report from anesthesia .
[2020-04-12 11:38] VITALS: BP 97/59; PULSE 59
== END 2020-04-12 12:02 | disposition home or self-care (01) ==
LOC: ORPAIN 09:46
PROVIDERS: ATTEND Specialist
DX: M96.1 Postlaminectomy syndrome, not elsewhere classified (principal); M54.16 Radiculopathy, lumbar region; E11.9 Type 2 diabetes mellitus without complications; Z79.82 Long term (current) use of aspirin
CPT/HCPCS: 62264; J2250; J1030; J3010; J1885; J1170; Q9966; C1894

== ENCOUNTER → 2020-04-16 | Outpatient (CLI) | payer MEDICARE, OTHER ==
--- NOTE | 2020-04-18 09:39 | MM ---
Reason for exam: screening (asymptomatic). Last mammogram was performed 6 months ago. History: Patient is postmenopausal. Benign MG stereo VAD BX RT of the right breast, April 14, 2019. Benign stereotactic core biopsy of the left breast, 2009. Took hormonal contraceptives beginning at age 16. Took estrogen for 1 year. Physical Findings: A clinical breast exam by your physician is recommended on an annual basis and results should be correlated with mammographic findings. MG 3D Screening Mammo W/Cad Bilateral CC and MLO view(s) were taken. Prior study comparison: October 17, 2019, right breast MG 3d diag mammo w/cad RT. March 08, 2019, right breast MG work up mamm w CAD RT. February 18, 2019, bilateral MG screening mammo w CAD. January 30, 2017, bilateral MG screening mammo w CAD. January 29, 2016, bilateral MG 3d screening mammo w/cad. There are scattered fibroglandular densities. Previous mammotome biopsy in the right and left breast. Small benign oil cyst calcifications. No significant changes when compared with prior studies. ASSESSMENT: Negative, BI-RAD 1 RECOMMENDATION: Routine screening mammogram of both breasts in 1 year.
== END | disposition home or self-care (01) ==
LOC: RADMAMWWP 09:52
PROVIDERS: ATTEND Surgery
DX: Z12.31 Encounter for screening mammogram for malignant neoplasm of breast (principal)
CPT/HCPCS: 77063; 77067

== ENCOUNTER → 2020-04-20 | Outpatient (CLI) | payer MEDICARE, OTHER ==
[2020-04-20 10:40] VITALS: BP 104/67; PULSE 80; RESP 18; TEMP 97.6
--- NOTE | 2020-04-20 11:02 | P.PN ---
Subjective Progress Note Date: 04/20/20 Principal diagnosis: fibrocystic breast changes Yani is a 64-year-old white female seen in consultation for DR. Vishal Snell on 04-13-19 regarding an abnormal finding on routine screening mammogram performed on [id number] she was noted to have focal asymmetry in the upper outer quadrant of the right breast. Additional views were recommended. Additional views of the right breast were performed and 172 which showed a persistent 6 mm focal asymmetry. She subsequently underwent an ultrasound of the right breast on the same day which did not reveal any sonographic correlate. She is status post left breast core biopsy in 2010 which was a benign cyst. She underwent a stereotactic core biopsy of the area of concern on . This was benign breast with fibrocystic changes and prominent adipose tissue. It was reviewed with radiology and felt to be benign specific. At this time she has a repeat right breast mammogram performed which is felt to be benign BIRADS 2. She had a bilateral mammogram on 04-16-20 which was benign BIRAD 1. She does not feel any lumps masses or skin changes in her breasts. She has no nipple discharge for which she is concerned. She has no complaint of any recent trauma or infection in the breast. caffiene: 1 cups/day nicotine: none chocolate: occasional hormones: none Family History: mother: ovarian, cervical cancer from this father: stomach brother: lung sister: 6th bout of cancer, colon maternal uncle: two brain, and lung cancer Hormonal History: menarche: 7 , breast fed: no, first born at 22 menopause: 38, hysterectomy at 38 took both ovaries BCP: 1 year hormones: none Surgical History: 1. two C sections 2. bilateral vein stripping 3. bilateral knee replacement 4. gallbladder 5. 4 lithotripsy 6. kidney surgery for stones 7. 4 back surgeries 8. cataract surgery pending, as well as pacemaker replacement and back surgery Medical History: 1. CHF 2. renal failure 3. GERD 4. sepsis/ 2014 from UTI 5. diabetes 6. migraines 7. hypotension 8. recent pneumonia two times Social History: smoke: none alcohol: none drugs: none - Constitutional Constitutional: Reports sweats - EENT Comment: beginning of cataracts Ears: deny: decreased hearing, tinnitus Ears, nose, mouth and throat: Reports headache - Breasts Breasts: bilateral: as per HPI - Cardiovascular Comment: CHF, pacemaker for bradycardia - Respiratory Comment: asthma, bronchitis, pneumonia five times - Gastrointestinal Comment: GERD - Genitourinary (Female) Genitourinary: Reports kidney stones - Menstruation Menstruation: Reports post hysterectomy - Musculoskeletal Comment: arthritis - Integumentary Integumentary: Denies pruritus, Denies rash - Neurological Comment: neurapathy in feet Neurological: Reports numbness, Denies weakness - Psychiatric Psychiatric: Reports anxiety, Reports depression - Endocrine Comment: diabetes - Hematologic/Lymphatic Comment: being followed by a thoracic surgeon ? Aneurysm, aspirin - Allergic/Immunologic Allergic/Immunologic: Reports as per HPI Objective - Vital Signs Vital signs: Vital Signs Temp 97.6 F 04/20/20 10:35 Pulse 80 04/20/20 10:35 Resp 18 04/20/20 10:35 BP 104/67 04/20/20 10:35 Pulse Ox 98 04/20/20 10:35 Intake & Output 04/19/20 04/20/20 04/20/20 18:59 06:59 18:59 Weight 108.409 kg - Exam BMI 39.8 - Constitutional General appearance: Present: obese - EENT ENT: Present: hearing grossly normal - Neck Neck: Present: normal ROM - Respiratory Respiratory: bilateral: CTA - Cardiovascular Rhythm: regular Heart sounds: normal: S1, S2 - Gastrointestinal General gastrointestinal: Present: normal bowel sounds, soft - Integumentary Integumentary: Present: normal turgor - Musculoskeletal Musculoskeletal Comment(s): difficulty with ambulation - Psychiatric Psychiatric: Present: A&O x's 3, appropriate affect, intact judgment & insight - Additional findings Additional findings: breast exam: BRA: 44D inspection: bilateral grade 3 ptosis palpation: right breast: Multi-positional exam fibrocystic changes, no dominant masses or nodules of concern Right axilla: No adenopathy of concern Left breast: Multi-positional exam fibrocystic changes, no dominant masses or nodules of concern Left axilla: No adenopathy of concern Assessment and Plan Assessment: Impression: 1. CHF 2. renal failure 3. GERD 4. sepsis/ 2014 from UTI 5. diabetes 6. migraines 7. hypotension 8. recent pneumonia two times 9. Fibrocystic breast changes 10. Family history of cancer 11. needs pacemaker changed 12. cataract surgery pending 13. back pain 14. Thoracic aneurysm being followed by Dr. Grijalva from thoracic surgery Plan: 1. close surveillance secondary to fibrocystic breast changes and strong family history of cancer 2. Nothing to warrant biopsy at this time we'll follow closely 3. Bilateral mammogram in physician exam in 1 year unless patient notes something sooner CC: Dr. Vishal Snell Encounter 15 minutes time spent in reviewing medical records, physical examination, and counseling.
== END | disposition home or self-care (01) ==
LOC: WWCWWP 10:29
PROVIDERS: ATTEND Surgery
DX: N60.11 Diffuse cystic mastopathy of right breast (principal); N60.12 Diffuse cystic mastopathy of left breast; E11.9 Type 2 diabetes mellitus without complications; G43.909 Migraine, unspecified, not intractable, without status migrainosus; I95.9 Hypotension, unspecified; I50.9 Heart failure, unspecified; N19 Unspecified kidney failure; Z87.01 Personal history of pneumonia (recurrent); Z80.9 Family history of malignant neoplasm, unspecified; Z95.0 Presence of cardiac pacemaker; M54.5 Low back pain; I71.2 Thoracic aortic aneurysm, without rupture; K21.9 Gastro-esophageal reflux disease without esophagitis; Z79.4 Long term (current) use of insulin

== ENCOUNTER → 2020-05-02 | Outpatient (CLI) | payer MEDICARE, OTHER ==
[2020-05-02 11:04] VITALS: BP 109/71; PULSE 82; RESP 18; TEMP 98
== END ==
LOC: PNWHC3 10:51
PROVIDERS: ATTEND Anesthesiology
DX: M54.16 Radiculopathy, lumbar region (principal)
CPT/HCPCS: 99211

== ENCOUNTER → 2020-05-15 | Day surgery (SDC) | payer MEDICARE, OTHER ==
--- NOTE | 2020-05-02 11:13 | P.PAINPG ---
Subjective Progress Note Date: 05/02/20 64-year-old female presents as a followup to the [facility] pain clinic, she was referred by Dr. Vishal Snell. She status post multiple lumbar surgeries, most recently a lumbar fusion would appears to be L3-L4, L5-S1 done by Dr. Rojas out of [facility]. She states after that surgery she had significant relief of her low back pain and radicular symptoms into her lower extremities however since September has been having significant low back pain radicular pain down her left leg along the L5 nerve root dermatome. She has a history of bowel and bladder incontinence/irregularities. She denies any significant increase in incontinence. She does report having some episodes of leg weakness since caused her to sit down until she "gets feeling" back and her legs. She denies any recent falls. Most recently she had caudal antonino with ALICIA x 2. We also ordered a CT of the lumbar spine and referred her to Dr Meeks. Here for follow up today. Unfortunately the most recent injections did not work. Pain is still an 8 out of 10 described as throbbing aching in the low back with pain down the left leg. She does have some pain in her right leg but it is mostly in her left. Has difficulty standing for long periods of time as well as sitting and has been severely limited over the past few months. Her most recent surgery was a revision and she is worried about further surgery. However she understands that given her injections and physical therapy which she is currently doing is not helping a lot, she might need to proceed with surgery. She will make an appointment with Dr. Pack In addition to above, 13-point review of systems is also negative for chest pain, shortness of breath, changes in vision, changes in hearing, new onset weakness, abdominal pain, diarrhea, extreme fatigue, malaise, fever, skin changes, homicidal or suicidal ideation. Vital Signs: Reviewed in EMR Gen: AAOx3 mild distress HEENT: NCAT, EOMI, hearing grossly normal Pulm: resp unlabored Abd: soft, NT, ND Neck: supple, trachea midline Lumbar spine: Limited secondary to patient's pain and discomfort. Palpation: No tenderness to palpation Inspection: surgical incision looks clean dry and intact Range of motionReduced flexion and extension Neuromuscular: Sensation decreased along L5 dermatome on the left, reflexes are absent is slightly diminished in the left compared to right. There is some weakness with dorsiflexion of the left versus right 4/5 on the left given limited physical exam. Gait: Antalgic gait, no assist device utilized Neuro: CN II-XII grossly intact, muscle strength lower extremities PRESERVED CT Lumbar Spine 03/2020 Overall alignment is maintained with vertebral body heights intact At L5-S1 there is a left-sided posterior interbody fusion. There is moderate to severe left and moderate right neural foraminal stenosis at this level. L4-L5 there is hypertrophic facet arthropathy with moderate bilateral neural foraminal stenosis At L3-L4 there is posterior and interbody fusion. There is also moderate spinal canal stenosis and moderate left and mild to moderate right neuroforaminal stenosis. L2-L3 there is a persistent large disc osteophyte complex causing moderate spinal canal stenosis with moderate left and moderate right neuroforaminal stenosis Assessment: 1. lumbar postlaminectomy syndrome 2. lumbar radiculopathy 3. Lumbar degenerative disc disease Plan: 1. Explanation: Opioid and psychological risk scores were reviewed. Diagnoses, prognoses, and multiple treatment options including but not limited to physical therapy, interventional therapies, adjuvant medical therapies, narcotic medication therapies, and surgery were discussed with the patient and all questions were answered to the patient's satisfaction. 2. Opioid agreement: not signed today 3. Counseling: None at the moment 4. Procedures: None at this time. Given the amount of hardware in her back in significant narrowing throughout spine, I'm not confident any injections will work at this time. I do feel surgery is the best next step for her 5. Consultations: She will make an appointment with Dr. Hargrove 6. Investigations: none 7. Medications: None at the moment. 8. Disposition: as needed I spent 25 minutes reviewing the patient's chart, going over patient's medications, talking to the patient, and discussing plan of care PQRS Measure Charge Sheet PQRS Narrative: Smoking Status Never smoker Hx Alcohol Use (MH) No Home Medications: Ambulatory Orders Aspirin EC [Ecotrin Low Dose] 81 mg PO HS 11/02/18 Montelukast [Singulair] 10 mg PO HS 11/02/18 Spironolactone [Aldactone] 12.5 mg PO DAILY 11/02/18 HYDROcodone/APAP 7.5-325MG [Henning 7.5-325] 1 tab PO TID PRN 01/14/19 Atorvastatin [Lipitor] 20 mg PO HS 09/05/19 Carvedilol [Coreg] 12.5 mg PO BID 09/05/19 Iron 28mg 28 mg PO NORRIS 09/05/19 Meclizine [Antivert] 12.5 mg PO Q12H 09/05/19 Topiramate [Topamax] 50 mg PO HS 09/05/19 tiZANidine [Zanaflex] 4 mg PO HS 09/05/19 Furosemide [Lasix] 10 mg PO DAILY 12/06/19 Losartan [Cozaar] 25 mg PO HS 12/06/19 calcitrioL [Rocaltrol] 0.25 mcg PO NORRIS 12/06/19 Budesonide [Pulmicort Flexhaler] 2 puff INHALATION RT-BID 02/09/20 Cyclobenzaprine [Flexeril] 5 mg PO BID 02/09/20 Docusate [Colace] 100 mg PO Q48H 02/09/20 Ergocalciferol [Vitamin D2 (DRISDOL)] 50,000 unit PO Q28D 02/09/20 Insulin Glargine,Hum.rec.anlog [Lantus Solostar] 36 unit SQ HS 02/09/20 Insulin Lispro [humaLOG Kwikpen] 13 unit SQ AC-BRKFST 02/09/20 Insulin Lispro [humaLOG Kwikpen] 15 unit SQ AC-BID@1200,1800 02/09/20 Magnesium Oxide [Shaikh] 1,000 mg PO HS 02/09/20 Midodrine [ProAmatine] 5 mg PO TID 02/09/20 Albuterol Sulfate [Ventolin HFA] 1 - 2 puff INHALATION Q6H PRN 04/20/20 traMADol HCL 50 mg PO BID 04/20/20 Controlled Substance Measures - Controlled Substance Measures Is patient prescribed a controlled substance at discharge?: No
[2020-05-11 14:29] VITALS: BMI 39.6
[~2020-05-15] MED LIST changes: +IOPAMIDOL-250 50ML BTL IV ONE; +IV FLUID CONTINUATION 450 ML IV ONE; -LACTATED RINGERS 1,000 ML IV SCH; +SODIUM CHLORIDE 0.9% 1,000 ML IV SCH
[2020-05-15 06:15] VITALS: BP 127/64; PULSE 65; RESP 16; TEMP 97.7
[2020-05-15 06:30] LABS: Glucose,Whole Blood 264 mg/dL (75-99)
--- NOTE | 2020-05-15 11:35 | P.EPPROC ---
- EP Procedure Note Electrophysiology Procedure Note: Diagnosis History of cardio myopathy left bundle branch block Single chamber ICD in situ near NE Patient awaiting upgrade to a biventricular ICD Left upper extremity venogram 50 mL IV dye injected in the left arm Patent left axillary and subclavian venous system into the innominate and SVC Cinefluoroscopy of the leads Dual coil ICD lead implanted in the RV apex No fractures or breaks noted Plan Proceed with plan upgrade to a biventricular ICD from the left side, via left axillary vein
== END ==
LOC: CATHEP 05:54
PROVIDERS: ATTEND Internal Medicine Clinical Cardiac Electrophysiology
DX: I42.8 Other cardiomyopathies (principal); I44.7 Left bundle-branch block, unspecified; I13.0 Hypertensive heart and chronic kidney disease with heart failure and stage 1 through stage 4 chronic kidney disease, or unspecified chronic kidney disease; E11.22 Type 2 diabetes mellitus with diabetic chronic kidney disease; I50.9 Heart failure, unspecified; N18.9 Chronic kidney disease, unspecified; E78.5 Hyperlipidemia, unspecified; E66.9 Obesity, unspecified; E78.00 Pure hypercholesterolemia, unspecified; Z95.810 Presence of automatic (implantable) cardiac defibrillator; Z79.4 Long term (current) use of insulin; Z79.82 Long term (current) use of aspirin; Z79.51 Long term (current) use of inhaled steroids; Z79.899 Other long term (current) drug therapy; Z68.38 Body mass index [BMI] 38.0-38.9, adult; Z87.442 Personal history of urinary calculi
CPT/HCPCS: 36005; 75820; Q9966; 76000

== ENCOUNTER 2020-06-22 06:09 | Day surgery (SDC) | payer MEDICARE, OTHER ==
[~2020-06-22 06:09] MED LIST changes: -IOPAMIDOL-250 50ML BTL IV ONE; -IV FLUID CONTINUATION 450 ML IV ONE; +PREMYELOGRAM MEDICATION REVIEW 1 EACH MISC PO ONE
[2020-06-22 06:54] VITALS: RESP 16; TEMP 97
[2020-06-22] MEDS ORDERED: diazePAM 5 MG TAB PO STA (08:50)
[2020-06-22 11:41] VITALS: BP 114/74; PULSE 75
--- NOTE | 2020-06-22 13:01 | FL ---
EXAMINATION TYPE: FL myelogram 2 or more regions DATE OF EXAM: 06/22/2020 10:05 AM HISTORY: Lower extremity pain and numbness Informed consent was obtained and all the patient's questions were answered. Multiple levels were loc alized under fluoroscopy. Standard sterile technique was utilized as well as appropriate local anesth esia 1% Lidocaine and sodium bicarbonate. Multiple unsuccessful attempts were made at localizing the thecal sac. Myelography was subsequently aborted. FL TIME OF 3.27 MINS IMPRESSION: Unsuccessful myelography.
== END 2020-06-22 10:35 | disposition home or self-care (01) ==
LOC: RADPROMAIN 06:09
PROVIDERS: ATTEND Orthopaedic Surgery
DX: R20.0 Anesthesia of skin (principal); Z53.9 Procedure and treatment not carried out, unspecified reason
CPT/HCPCS: 87635; 62305; J2001

== ENCOUNTER → 2020-07-26 | Day surgery (SDC) | payer MEDICARE, OTHER ==
[2020-07-25 09:16] VITALS: BMI 38.2
[~2020-07-26] MED LIST changes: -PREMYELOGRAM MEDICATION REVIEW 1 EACH MISC PO ONE; +SODIUM CHLORIDE 0.9% 500 ML 500 ML IV ONE
[2020-07-26 08:42] LABS: Glucose,Whole Blood 139 mg/dL (75-99)
[2020-07-26 08:44] VITALS: BP 122/66; PULSE 60; RESP 16; TEMP 98.4
--- NOTE | 2020-10-04 13:54 | P.EPPROC ---
- EP Procedure Note Electrophysiology Procedure Note: Diagnosis Patient has ICD Ablating upgrade to biventricular ICD Cinefluoroscopy of the leads Patient is single chamber dual coil ICD lead in situ No fractures or breaks noted Left upper extremity venogram 10 mL IV dye injected in the left arm Patent left axillary and subclavian venous system Plan Proceed with upgrade to a biventricular ICD
== END ==
LOC: CATHEP 08:01
PROVIDERS: ATTEND Internal Medicine Clinical Cardiac Electrophysiology
DX: Z45.018 Encounter for adjustment and management of other part of cardiac pacemaker (principal); I42.8 Other cardiomyopathies; I12.9 Hypertensive chronic kidney disease with stage 1 through stage 4 chronic kidney disease, or unspecified chronic kidney disease; E11.22 Type 2 diabetes mellitus with diabetic chronic kidney disease; N18.31 Chronic kidney disease, stage 3a; I44.7 Left bundle-branch block, unspecified; Z79.4 Long term (current) use of insulin; Z95.810 Presence of automatic (implantable) cardiac defibrillator; Z79.82 Long term (current) use of aspirin; Z79.51 Long term (current) use of inhaled steroids; Z79.899 Other long term (current) drug therapy

== ENCOUNTER → 2020-08-30 | Outpatient (CLI) | payer MEDICARE, OTHER ==
[2020-08-30 11:23] LABS: HCT 35.4 % (34.0-46.0); HGB 11.7 gm/dL (11.4-16.0); MCV 97.1 fL (80.0-100.0); Mean Platelet Volume 8.2; Platelet Count 105 k/uL (150-450); RBC 3.64 m/uL (3.80-5.40); RDW 14.9 % (11.5-15.5); WBC 5.5 k/uL (3.8-10.6)
[2020-08-30 11:51] LABS: Potassium 4.9 mmol/L (3.5-5.1)
== END | disposition home or self-care (01) ==
LOC: LABPAT 10:05
PROVIDERS: ATTEND Internal Medicine Clinical Cardiac Electrophysiology
DX: Z01.812 Encounter for preprocedural laboratory examination (principal); T82.111A Breakdown (mechanical) of cardiac pulse generator (battery), initial encounter; Y71.2 Prosthetic and other implants, materials and accessory cardiovascular devices associated with adverse incidents
CPT/HCPCS: 36415; 80051; 82565; 84520; 85027

== ENCOUNTER 2020-09-10 07:18 | Day surgery (SDC) | payer MEDICARE, OTHER ==
[2020-09-06 15:00] VITALS: BMI 38.2
[~2020-09-10 07:18] MED LIST changes: +DEXAMETHASONE SOD PHOSPHATE 4 MG/ML 1 ML VIAL IV ONE; +HYDROmorphone 0.5 MG/0.5 ML SYRINGE IVP PRN; +LACTATED RINGERS 1,000 ML IV SCH; +ONDANSETRON 4 MG/2 ML VIAL IVP ONE; -SODIUM CHLORIDE 0.9% 500 ML 500 ML IV ONE; +ceFAZolin 1 GM in SODIUM CHLORIDE 0.9% 250 ML IRRIGATION PRN
[2020-09-10] MEDS ORDERED: SODIUM CHLORIDE 0.9% 1,000 ML IV ONE (07:24)
[2020-09-10 07:59] LABS: Glucose,Whole Blood 137 mg/dL (75-99)
[2020-09-10 08:32] VITALS: RESP 16; TEMP 98
[2020-09-10] MEDS ORDERED: LIDOCAINE 1% INJ 10MG/ML (20 ML MDV) ONE (09:26)
[2020-09-10] MEDS ORDERED: KETAMINE 10 MG/ML 20 ML VIAL ONE (09:30)
[2020-09-10] MEDS ORDERED: PROPOFOL 10 MG/ML 20 ML VIAL IV ONE (09:30)
[2020-09-10] MEDS ORDERED: fentaNYL (PF) 50 MCG/ML 2 ML AMP ONE (09:30)
[2020-09-10] MEDS ORDERED: PHENYLEPHRINE-0.9% NACL SYG 1,000 MCG/10 ML SYRINGE ONE (09:30)
[2020-09-10] MEDS ORDERED: MIDAZOLAM 2 MG/2 ML VIAL ONE (09:30)
[2020-09-10] MEDS ORDERED: GLYCOPYRROLATE 0.2 MG/ML 2 ML VIAL ONE (09:30)
[2020-09-10] MEDS ORDERED: HYDROmorphone (PF) 1 MG/ML ONE (09:30)
[2020-09-10] MEDS ORDERED: LIDOCAINE 1% INJ 10MG/ML (20 ML MDV) SQ ONE ×2 (10:18→10:35)
[2020-09-10] MEDS ORDERED: IOPAMIDOL-370 50ML BTL INJ ONE (11:02)
[2020-09-10] MEDS ORDERED: ACETAMINOPHEN TAB 325 MG TAB PO PRN (12:25)
[2020-09-10] MEDS ORDERED: VANCOMYCIN 1,000 MG in SODIUM CHLORIDE 0.9% 250 ML IVPB STA (12:30)
[2020-09-10] MEDS ORDERED: VANCOMYCIN 1,750 MG in SODIUM CHLORIDE 0.9% 500 ML 500 ML IVPB ONE (13:00)
--- NOTE | 2020-09-10 13:23 | CE ---
CARDIAC ELECTROPHYSIOLOGY REPORT Yani Andino is a 64-year-old female who has nonischemic cardiomyopathy, severe LV dysfunction, chronic systolic heart failure class 2, and left bundle branch block with a QRS width of 161 milliseconds. She has a single-chamber ICD in situ. The generator is at NE. She is brought in for an upgrade to a biventricular ICD at the time of single-chamber ICD generator change. Patient was brought to the EP lab in a fasting state. Written informed consent was obtained prior to the procedure. The left shoulder area was prepped and draped as per protocol. 1% lidocaine was used for local anesthesia. A 4 cm incision was made in the left pectoral area and carried down to the level of the generator. The generator was explanted and partial capsulectomy was performed. The RV lead was freed. Access was obtained in the left axillary vein and two wires were placed in the right heart. Using appropriately sized introducer sheaths, 2 leads were positioned in the right heart. The atrial lead was a 52 cm Medtronic model #5076 and serial number [id number]. P waves 1.7 mV, pacing impedance 475 ohms, pacing threshold 0.5 V at 0.5 milliseconds. 10 V test negative. The LV lead was positioned in the anterolateral/lateral vein. R-waves are 19 mV. Pacing impedance 703 ohms, pacing threshold 1.8 V at 0.5 milliseconds from LV 4 to RV coil. Please note that LV 1-2 pacing impedance was 2300 ohms on repeated measurements. We checked the connection of the pin and this was acceptable and had been connected appropriately. The tip of the lead was wedged in a very tiny vein for stability. This was a screw-in lead and was screwed into the LV vein. The sheaths were removed. The leads were connected to the new generator. This was a Medtronic model number [id number] serial number [id number]. The lead and generator were then placed in subfascial pocket and the wound was closed in 3 layers and dressed per protocol. ([place] heart failure quad MRI). DFT testing was deferred at this time and will be performed 3 months later after Bi V pacing. RESULTS: Successful upgrade to a biventricular ICD with implantation of new atrial lead and new LV lead. The LV lead was placed in the lateral vein. The preferred pacing poles are the proximal poles and the best threshold was in the unipolar mode with LV4 to coil to RV coil. The patient tolerated the procedure well without any acute complications. PLAN: IV antibiotics including IV vancomycin and follow up in the office in about 7 days. AYSE / JEREMYN: [id number] /
--- NOTE | 2020-09-10 15:08 | XR ---
EXAMINATION TYPE: XR chest 1V portable DATE OF EXAM: 09/10/2020 CLINICAL HISTORY: Lead placement check. TECHNIQUE: Portable frontal view of the chest. COMPARISON: 10/08/2019 FINDINGS: Left-sided AICD redemonstrated with distal lead over the expected right ventricle, now wit h new pacemaker pack and additional leads over the expected right atrial appendage and left ventricle . No evidence of lead kinking. Low lung volumes. The patient is mildly rotated to the left, although cardiac silhouette appears similar given differences in technique. No pneumothorax or sizable effusio n. IMPRESSION: Left-sided AICD pacemaker with leads distally over the course of the expected right atrial appendage, right ventricle, and left ventricle.
[2020-09-10 19:33] VITALS: BP 102/62; PULSE 74
== END 2020-09-10 18:00 | disposition home or self-care (01) ==
LOC: CATHEP 07:18
PROVIDERS: ATTEND Internal Medicine Clinical Cardiac Electrophysiology
DX: Z45.02 Encounter for adjustment and management of automatic implantable cardiac defibrillator (principal); I44.7 Left bundle-branch block, unspecified; I13.0 Hypertensive heart and chronic kidney disease with heart failure and stage 1 through stage 4 chronic kidney disease, or unspecified chronic kidney disease; N18.30 Chronic kidney disease, stage 3 unspecified; E11.22 Type 2 diabetes mellitus with diabetic chronic kidney disease; I42.8 Other cardiomyopathies; E78.5 Hyperlipidemia, unspecified; E66.9 Obesity, unspecified; Z68.41 Body mass index [BMI] 40.0-44.9, adult; Z79.4 Long term (current) use of insulin; Z79.82 Long term (current) use of aspirin; Z79.51 Long term (current) use of inhaled steroids; Z79.899 Other long term (current) drug therapy; I48.91 Unspecified atrial fibrillation; J45.909 Unspecified asthma, uncomplicated; G47.33 Obstructive sleep apnea (adult) (pediatric); Z79.891 Long term (current) use of opiate analgesic
CPT/HCPCS: 33225; 33249; 71045; C1769 ×5; C1882; C1892 ×2; C1730; C1887; C1898; J2250; J3370; J0690; J2001; J3010; J1170 ×2; J2370; J2704; Q9967

== ENCOUNTER → 2020-10-15 | Outpatient (CLI) | payer MEDICARE, OTHER ==
--- NOTE | 2020-10-15 14:28 | CT ---
EXAMINATION TYPE: CT chest wo con DATE OF EXAM: 10/15/2020 COMPARISON: 10/18/2019 HISTORY: Follow up Aneurysm. CT DLP: 568.5 mGycm. Automated Exposure Control for Dose Reduction was Utilized. TECHNIQUE: CT scan of the thorax is performed without IV contrast. FINDINGS: LUNGS: The lungs are grossly clear, there is no concerning parenchymal mass or nodule identified. T here is no pleural effusion or pneumothorax seen. The tracheobronchial tree is patent. MEDIASTINUM: Lack of IV contrast is noted to limit evaluation for mediastinal and especially hilar ad enopathy. There are no definitive greater than 1 cm hilar or mediastinal lymph nodes. The heart is en larged and there is coronary artery calcification. Atherosclerotic change of the aorta..The ascending thoracic aorta measures up to 3.7 cm. There is dilatation of the main pulmonary arterial trunk measu ring up to 3.5 cm. The descending thoracic aorta measures up to 3.4 cm. Cardiac device and leads note d. OTHER: Incompletely visualized kidneys with bilateral too small to characterize hypodense lesions an d left sided surgical clips. Decreased osseous mineralization, degenerative changes of the spine, and increased thoracic kyphosis. Surgical clips in the gallbladder fossa. IMPRESSION: 1. Stable cardiomegaly. 2. Ascending aorta measures a maximal dimension of 3.7 cm with no diagnostic evidence of sizable aneu rysm.
== END | disposition home or self-care (01) ==
LOC: RADCTMAIN 12:48
PROVIDERS: ATTEND Thoracic Surgery (Cardiothoracic Vascular Surgery)
DX: I71.2 Thoracic aortic aneurysm, without rupture (principal)
CPT/HCPCS: 71250; 82565; 84520

== ENCOUNTER → 2020-10-15 | Outpatient (CLI) | payer MEDICARE, OTHER ==
[2020-10-15 19:17] LABS: Basophils # (A) 0.05 X 10*3/uL (0.00-0.10); Basophils % (A) 0.8 %; Eosinophils # (A) 0.21 X 10*3/uL (0.04-0.35); Eosinophils % (A) 3.3 %; HGB 11.6 g/dL (12.0-15.0); Lymphocytes # (A) 1.39 X 10*3/uL (0.90-5.00); Lymphocytes % (A) 21.8 %; MCH 31.6 pg (27.0-32.0); MCHC 32.2 g/dL (32.0-37.0); MCV 98.1 fL (80.0-97.0); Mean Platelet Volume 11.6 fL (9.5-12.2); Monocytes % (A) 7.8 %; Neutrophils # (A) 4.22 X 10*3/uL (1.80-7.70); Platelet Count 123 X 10*3/uL (140-440); RBC 3.67 X 10*6/uL (4.10-5.20); RDW 14.1 % (11.5-14.5); WBC 6.39 X 10*3/uL (4.50-10.00)
[2020-10-15 21:19] LABS: % Iron Saturation 20.6 (12.00-45.00); African American GFR (CKD) 41.9 (60.0-200.0); Albumin 4.1 g/dL (3.80-4.90); Albumin/Globulin Ratio 2.28 (1.60-3.17); Anion Gap 7.8 mmol/L (4.00-12.00); C Reactive Protein 0.6 mg/dL (0.0-0.8); Calcium 9.2 mg/dL (8.7-10.3); Carbon Dioxide 26.2 mmol/L (21.6-31.8); Globulin 1.8 g/dL (1.6-3.3); Magnesium 1.9 mg/dL (1.5-2.4); Non-African American GFR(CKD) 36.2 (60.0-200.0); Phosphorus 3.9 mg/dL (2.4-5.1); Potassium 4.5 mmol/L (3.5-5.5); Total Bilirubin 0.6 mg/dL (0.3-1.2); Total Protein 5.9 g/dL (6.2-8.2); Uric Acid 7.9 mg/dL (2.9-7.7)
[2020-10-15 21:27] LABS: Ferritin 130.7 ng/mL (10.0-291.0)
[2020-10-15 23:18] LABS: Erythrocyte Sedimentation Rate 18 mm/Hr (0-30)
[2020-10-15 23:45] LABS: Microalbumin Creatinine Ratio <30 mg/g Creat (0-30)
== END | disposition home or self-care (01) ==
LOC: LABWHC1 12:23
PROVIDERS: ATTEND Orthopaedic Surgery
DX: N18.31 Chronic kidney disease, stage 3a (principal); D64.9 Anemia, unspecified; R80.9 Proteinuria, unspecified; N25.81 Secondary hyperparathyroidism of renal origin; E55.9 Vitamin D deficiency, unspecified; M10.9 Gout, unspecified; M96.0 Pseudarthrosis after fusion or arthrodesis
CPT/HCPCS: 36415; 80053; 82043; 82306; 82570; 82728; 83540; 83550; 83735; 83970; 84100; 84550; 85025; 85652; 86140

== ENCOUNTER → 2020-11-06 | Outpatient (CLI) | payer MEDICARE, OTHER ==
[2020-11-06 11:47] LABS: Basophils % (A) 0 %; Eosinophils # (A) 0.2 k/uL (0-0.7); Eosinophils % (A) 3 %; HCT 37.6 % (34.0-46.0); HGB 12.8 gm/dL (11.4-16.0); Lymphocytes # (A) 1.2 k/uL (1.0-4.8); Lymphocytes % (A) 19 %; MCH 32.9 pg (25.0-35.0); MCV 96.6 fL (80.0-100.0); Mean Platelet Volume 8.8; Monocytes # (A) 0.4 k/uL (0-1.0); Monocytes % (A) 6 %; Neutrophils # (A) 4.2 k/uL (1.3-7.7); Neutrophils % (A) 70 %; Platelet Count 107 k/uL (150-450); RBC 3.89 m/uL (3.80-5.40); RDW 13.8 % (11.5-15.5)
[2020-11-06 11:57] LABS: Prothrombin Time 10.6 sec (9.0-12.0)
[2020-11-06 12:07] LABS: Calcium 9.7 mg/dL (8.4-10.2); Potassium 4.8 mmol/L (3.5-5.1)
== END | disposition home or self-care (01) ==
LOC: LABWHC1 10:05
PROVIDERS: ATTEND Family Medicine
DX: Z01.812 Encounter for preprocedural laboratory examination (principal); Z79.01 Long term (current) use of anticoagulants
CPT/HCPCS: 80048; 85025; 85610

== ENCOUNTER → 2020-11-07 | Outpatient (CLI) | payer MEDICARE, OTHER | END | disposition home or self-care (01) | LOC: LABPAT 08:13 | PROVIDERS: ATTEND Orthopaedic Surgery | DX: Z01.812 Encounter for preprocedural laboratory examination (principal); M96.0 Pseudarthrosis after fusion or arthrodesis; M48.062 Spinal stenosis, lumbar region with neurogenic claudication | CPT/HCPCS: 87070 ==

== ENCOUNTER 2020-11-13 06:09 | Inpatient (IN) | payer MEDICARE, OTHER ==
[~2020-11-13 06:09] MED LIST changes: +ACETAMINOPHEN TAB 500 MG TAB PO PRN; -HYDROmorphone 0.5 MG/0.5 ML SYRINGE IVP PRN; -LACTATED RINGERS 1,000 ML IV SCH; +LIDOCAINE 1% (10MG/ML) FOR IV START INTRADERMA PRN; +MIDAZOLAM 2 MG/2 ML VIAL IV PRN; +ONDANSETRON 4 MG/2 ML VIAL IVP PRN; -SODIUM CHLORIDE 0.9% 1,000 ML IV SCH; +TRANEXAMIC ACID 1,000 MG in SODIUM CHLORIDE 0.9% 100 ML IVPB PRN; -ceFAZolin 1 GM in SODIUM CHLORIDE 0.9% 250 ML IRRIGATION PRN
--- NOTE | 2020-11-13 06:20 | P.HPOR ---
History of Present Illness H&P Date: 11/07/20 Chief Complaint: Low back pain, le pain Date of :[birth year] R14 Allergies: Age: 64 year Height: 5'5" Weight: 230 lbs BP:124/86 BMI: VAS: 10 OCCUPATION: Retired X-Rays: brought xrays from outside facility which were reviewed New xrays taken in office Trauma or injury: No Work-related: No Location: posterior diffuse Hand dominance: right CHIEF COMPLAINT: Low back pain. HISTORY: Physical Therapy: Yes How many sessions? Did it help? No Injections: Yes How many? Did they help? No Activity Modifications: Unable to ambulate or stand for long periods of time. She is ambulating with the assistance of a cane. Brace: No SUBJECTIVE: Patient presents to the office today for a pre-operative visit regarding her low back. She is scheduled for a L2-Pelvis fusion to be done next week. Since her last appointment the patient states that her symptoms have not changed and are severe, limiting her daily functions greatly. She is understanding of the procedure and wishes to proceed, patient was cleared for surgery by her PCP. HPI: Pt was last seen for follow up on 10/19/[address] myelogram results of which she was able to get in [place]. Overall she stated that her pain has progressively gotten worse since the onset of her symptoms with no relief. She has tried all conservative treatment measures at this time and feels that she is ready to discuss surgical intervention regarding her lumbar back pain. She stated she felt that she was getting worse daily and that she continues to have back back pain as well as now leg pain that is worse than it has been. She stated no bowel or bladder issues. No new trauma. She denied any bowel or bladder issues. Denied any perineal numbness/tingling at this time. She has been seen for her pacemaker revision on September 10. She recently had some labs for this but is unsure what they are. Patient sustained a back injury at work in 1985. She had a previous lumbar laminectomy in 1986. She had a lumbar fusion in 2006 and in 2018. She had a lumbar epidural steroid injection on 03/23/2020. She has had previous physical therapy with the most recent in 2018. She states that she has had intermittent low back pain for 34 years. She reports low back pain that radiates down her left leg with sitting/laying down and with stairs. Patient is taking Greenwood 7.5 mg and Tramadol 50mg for pain. Patient is ambulating independently. She denies any bowel or bladder issues. No neurological problems at this time other than some weakness in her legs related to pain. No f/c/sob/cp at this pascual. Review of Systems 14 points review of systems completed and as stated in HPI, all other systems reviewed are negative. Past Medical History Past Medical History: Asthma, Diabetes Mellitus, GERD/Reflux, Hyperlipidemia, Musculoskeletal Disorder, Osteoarthritis (OA), Pneumonia, Renal Disease, Sleep Apnea/CPAP/BIPAP, Vascular Disorder Additional Past Medical History / Comment(s): Neuropathy bilateral hands/legs/feet, Chronic Kidney Disease Stage III, hx kidney stones, UTI/septic due to lodged kidney stone, BIPAP use, hx bronchitis, orthostatic hypotension, vertigo, chronic low back pain/DDD, Scoliosis, bilateral carpal tunnel syndrome, bilateral varicosities, migraines, hx gout, hx anemia(from nicked vein in left kidney after surgery for kidney stone), "embolism in my chest", followed by Dr Grijalva. History of Any Multi-Drug Resistant Organisms: None Reported Past Surgical History: AICD, Appendectomy, Back Surgery, Cardiac Ablation, C esarean Section, Cholecystectomy, Heart Catheterization, Hysterectomy, Joint Replacement, Orthopedic Surgery, Pacemaker Additional Past Surgical History / Comment(s): Bilateral knee arthroscopy, bilateral total knee replacements, pain clinic procedures, D&C, colonoscopy, bilateral leg varicose vein surgery, lithotripsies, surgical removal of stones, Myelogram([facility]) 2018, Lumbar fusion L3-4, lumbar puncture for headaches 2019 (had spinal headache post), laminectomy, bakers cyst removed from right knee, bilateral cataract surgery. Past Anesthesia/Blood Transfusion Reactions: No Reported Reaction Additional Past Anesthesia/Blood Transfusion Reaction / Comment(s): Pt has received blood without reaction. Type of Cardiac Device: Permanent Pacemaker, AICD Device Placement Date:: 09/10/20 Past Psychological History: Anxiety, Depression Smoking Status: Never smoker Past Alcohol Use History: None Reported Past Drug Use History: None Reported - Past Family History Father Family Medical History: Cancer Additional Family Medical History / Comment(s): Stomach cancer. Brother(s) Family Medical History: Cancer Additional Family Medical History / Comment(s): Lung cancer. Sister(s) Family Medical History: Cancer Additional Family Medical History / Comment(s): Sister had stomach/colon/part of pancreas cancers. Mother Family Medical History: Cancer Additional Family Medical History / Comment(s): Ovarian and cervical cancer. Medications and Allergies Home Medications Medication Instructions Recorded Confirmed Type Aspirin EC [Ecotrin Low Dose] 81 mg PO HS 11/02/18 11/08/20 History Montelukast [Singulair] 10 mg PO HS 11/02/18 11/08/20 History Spironolactone [Aldactone] 12.5 mg PO DAILY 11/02/18 11/08/20 History Atorvastatin [Lipitor] 20 mg PO HS 09/05/19 11/08/20 History Carvedilol [Coreg] 12.5 mg PO BID 09/05/19 11/08/20 History Iron 28mg 28 mg PO DAILY 09/05/19 11/08/20 History Meclizine [Antivert] 12.5 mg PO Q12H PRN 09/05/19 11/08/20 History Topiramate [Topamax] 50 mg PO HS 09/05/19 11/08/20 History tiZANidine [Zanaflex] 4 mg PO HS 09/05/19 11/08/20 History Furosemide [Lasix] 10 mg PO DAILY 12/06/19 11/08/20 History calcitrioL [Rocaltrol] 0.25 mcg PO NORRIS 12/06/19 11/08/20 History Budesonide [Pulmicort Flexhaler] 2 puff INHALATION RT-BID 02/09/20 11/08/20 History Cyclobenzaprine [Flexeril] 5 mg PO BID PRN 02/09/20 11/08/20 History Docusate [Colace] 100 mg PO Q48H 02/09/20 11/08/20 History Ergocalciferol [Vitamin D2 50,000 unit PO Q28D 02/09/20 11/08/20 History (DRISDOL)] Insulin Glargine,Hum.rec.anlog 40 unit SQ HS 02/09/20 11/08/20 History [Lantus Solostar Pen] Insulin Lispro [humaLOG Kwikpen] 15 unit SQ TID-W/MEALS 02/09/20 11/08/20 History Magnesium Oxide [Shaikh] 1,500 mg PO HS 02/09/20 11/08/20 History Midodrine [ProAmatine] 5 mg PO TID 02/09/20 11/08/20 History Albuterol Sulfate [Ventolin HFA] 2 puff INHALATION QID PRN 04/20/20 11/08/20 History traMADol HCL 50 mg PO Q12HR PRN 04/20/20 11/08/20 History Dupilumab [Dupixent Syringe] 300 mg SQ Q14D 07/25/20 11/08/20 History HYDROcodone/APAP 10-325MG [Greenwood 1 tab PO Q6HR PRN 09/06/20 11/08/20 History 10-325] Allergies Allergy/AdvReac Type Severity Reaction Status Date / Time No Known Allergies Allergy Verified 11/08/20 15:28 Physical Examination Osteopathic Statement: *. No significant issues noted on an osteopathic structural exam other than those noted in the History and Physical/Consult. General: Awake, alert, appropriate for age, in no acute distress. HEENT: No unusual neck masses around region of lateral neck triangle, thyroid, supraclavicular groove Heart: Regular rate and rhythm, normal S1, S2 and no murmur/gallop. Lungs: Clear to auscultation bilaterally with no use of accessory muscles. Extremities: Skin warm and dry without acute lesions, coloration, temperature, skin intact, no tenderness or erythema Integument: Hairy patches: Absent Dorsal skin dimples: Absent Cafe au lait spots: Absent Surgical incisions: None present Palpation: Please see Pain drawing on Intake sheet for further detail. no new POSTURAL and MUSCULO-SKELETAL EVALUATION: Coronal Balance: NEUTRAL Recumbent testing: Patient is able to lay flat on back Sagittal Balance: NEUTRAL Shoulder Profile: LEVEL Pelvic Girdle: LEVEL Neck ROM: UNRESTRICTED Lumbar ROM: UNRESTRICTED Shoulder ROM: Symmetrical Hip ROM: Symmetrical Knee ROM: Symmetrical Hands: Normal appearance, symmetrical Feet: Normal appearance, Symmetrical VASCULAR STATUS : LEFT RIGHT Wrist Pulses INTACT INTACT Pedal Pulses (Dors. pedis & post.tibialis) INTACT INTACT Color NORMAL NORMAL Edema Absent Absent NEUROLOGIC EXAMINATION: Mental Status:Awake and alert, fully oriented, with normal attention, concentration and memory, and fluent, appropriate speech. Cranial Nerves: I: Olfactory not tested. II: Visual acuity normal, no visual field deficit noted with confrontation. III,IV: Normal pupillary reflexes & intact extraocular movements without nystagmus. V,: Intact symmetrical facial sensation. VII: Intact symmetrical facial motor movement VIII: Hearing intact. IX,X: Intact gag, swallow, & normal voice. XI: Sternocleidomastoid, trapezius function intact. XII: Tongue midline with normal movements. L'hermitte's Sign: Negative / absent Spurling'Sign: Absent bilaterally. Cubital percussion test: Absent bilaterally. Elizabeth-Tinel sign - Carpal region: Absent bilaterally. Straight Leg Raising: Absent bilaterally. Crossed straight leg raise: negative O8 MOTOR EXAM (0-5/5, N/T) STRENGTH RIGHT LEFT Shoulder Abd (not part of the ALINA score) 5 5 Elbow Flexors 5 5 Elbow Extensor 5 5 Wrist Dorsiflexors 5 5 Finger Abductor 5 5 Heating And Ventilation Engineer 5 5 Hip Flexor (Not part of ALINA Motor score) 4 4 Knee Flexor 4 4 Knee Extensor 4 4 Ankle dorsiflexor 4 4 Ankle plantarflexion 4 4 Extensor hallucis 4 4 Generalized weakness secondary to her clinical condition and state. her legs are much weaker than they were previously REFLEXES(0-4/2, NT) RIGHT LEFT Upper Extremities 2 2 Lower Extremities 2 2 Pathological Reflexes RIGHT LEFT Miguel's 5 5 Clonus 5 5 Babinski 5 5 # Indicates mechanical impairment Muscle appearance: Symmetrical, without signs of atrophy or dystrophy. Rectal Tone:Deferred Normal, strong with volition control Sensory system (0-4, N/T) Test type RU YG RL LL Joint-Position 2 2 2 2 Vibration 2 2 2 2 Pain & LT sense 2 2 2 2 Dermatomal Deficit: None None None None Gait and Functional Evaluation: Ambulatory aids: Cane Romberg's test: Intact bilaterally Toe heel walk / heel-toe walk intact while maintaining satisfactory balance? yes Squatting/straightening w/o assistance to a min of 60 degree knee flexion? yes Single leg stance: intact Trendelenburg sign negative bilaterally Hand and finger dexterity intact bilaterally? yes Disdiadochokinesis examination negative bilaterally? yes Results XRay taken on 08/30/2020 of Lumbar, Pelvis was reviewed by Dr. Olivia and indicates: - AP lateral flexion extension films of the lumbar spine demonstrate postsurgical changes at L3 4 and L5-S1. Patient had a lateral interbody fusion at L3 4 with plate placement as well as a unilateral posterior instrumentation. She also had a unilateral posterior splint irritation of L5-S1. Patient has laminotomy defect from L5-S1 which is noted. There are no other fractures or dislocations. There appears to be likely pseudoarthrosis at L3 4. L5-S1 appears fused. Overall alignment is fairly well maintained. AP pelvis demonstrates congruent femoral last Mariangel joints with moderate osteophytic changes level pelvis no fractures or dislocations. - This demonstrates likely pseudoarthrosis of L4 L3 L4. There is good fusion at L5-S1. There is laminotomy defect at L4 to S1. There are no fractures or dislocations noted. L5 L4 [address] myelogram is reviewed. There is previous instrumentation in a segmentated way from L3-4 and L5-s1. There is no instrumentation spanning L4-5. There is ankylosis of the L spine above this anteriorly. There is exuberant facet arthropathy with stenosis noted at L2-5. There is disc osteophyte complex noted posterior to L4-5 where the previous lateral cage was placed. There is stenosis related to this. There is halo around the cage with sclerotic edges. There is no evidence that the cage is loose however it does not appear fully fused in this area. There is likely facet pseudoarthrosis noted at these levels as well. There is a pars defect that is difficult to determine if it is new fracture or simply pars defect on the Right of L4 which is visible and lends to pts c/o continued back pain as well as the pseudoarthrosis. No other fractures are noted. There is limitations related to the hardware. Screws that are there are in place with no evidence of fracture or failure Assessment and Plan Assessment: It was my pleasure to have seen and examined Yani. I reviewed the patient's clinical syndrome, physical findings, and imaging studies during the appointment today. It is my impression that the patient has a diagnosis of. 1. Status post multiple lumbar surgeries with low back pain and lower extremity weakness 2. Pseudoarthrosis L3-S1, incomplete instrumentation 3. Low back pain, LE radiculopathy 4. Neurogenic claudication 5. L3-S1 stenosis 6. Mechanical back pain Plan: Based on my findings I suggest the following course of action: 1. At this time the patient has failed all conservative treatment measures and surgical intervention was discussed for further treatment of her symptoms. The patient was understanding of this and would like to proceed. We will plan on a L2-Pelvis Lumbar fusion. All questions and concerns were discussed. 2. Given a script for an LSO brace for her to wear post-operatively. 2. Follow up for post-operative evaluation. Surgical Procedure Risk Review Yani Andino is a 64 year old female presenting for evaluation of onset of lowback pain, LE weakness, continued pain from previous surgery. It was my pleasure to have seen and examined Ms. Andino. In our visit today we have had a chance to go over subjective complaints, physical examination findings and treatments, including the natural course history without intervention and various interventional options. The imaging demonstrates post surgical changes with pseudoarthrosis L4-5 and likely L5-S1 with stenosis . On physical exam, Ms. Andino demonstrates LE weakness, continued back pain, neurogenic claudication . I explained to the patient that as her condition progresses it could cause continued pain, worsening pain, continued symptoms . At this time, based on the patients imaging and physical exam, I recommend surgery in the form or a: Revision fusion L2-Pelvis . I discussed the risk and benefits of this procedure at length with Ms. Andino. The patient agreed to consider pursuing the proced ure mentioned above. Plan: 1. Revision decompression and fusion Lumbar 2 to Pelvis 2. Follow up with PCP for surgical clearance 3. Review of surgical risks and benefits as well as an educational packet on the proposed surgical procedure. Risks: All surgical procedures come with inherent risks, including those related to positioning, anesthesia, intraoperative findings, and postoperative complications. It is important to understand that surgery does not come with any guarantee of a successful outcome as complications and adverse events are always possible. The patient was given a handout in office today discussing the surgical procedure and risks associated with the intervention, both of which were discussed with the patient. These risks include but are not limited to the following: ? Experiencing same, different or even worse symptoms in back, neck, arms, or legs compared to before surgery. ? Requiring further surgery or other forms of treatment presently or at some time in the future at same or other levels of the intended spine surgery. ? On an extreme but fortunately relatively rare basis severe complication such as blindness, stroke, heart attack, temporary and/or permanent nerve injury, paralysis, coma, or may occur, sometimes without known explanation. ? Surgical complications may include but are not limited to risk of infection, fluid accumulation in the surgical dissection site, including a seroma or hematoma, that requires additional surgery, wound drainage, bleeding, new numbness or weakness, vision changes/loss, spinal fluid leakage, non-healing and/or infected incision, headaches, difficulty or inability to swallow, hoarseness, hemopneumothorax, pneumothorax, impotence, retrograde ejaculation, vaginal dryness; injury to nerves, spinal cord, blood vessels, lymphatics or other vital organs (i.e., bowel injury, injury to the great vessels); heterotopic bone formation; complications related to the hardware such as screws, rods, cages including misplaced hardware, device failure, instrumentation at the wrong spine level, hardware fracture/breakage, or hardw are loosening; vertebral failure of the spinal column above or below the newly placed hardware; retained surgical instrumentations or devices and the need for further surgery. ? Medical risks of the planned spine surgery include but are not limited to generalized Infections to the whole body or local areas outside of the surgical site (sepsis), heart attack, bleeding, anaphylaxis, meningitis, seizure, epilepsy, hearing loss, burn parks, laceration of the head or other areas of the body, bruising, hypersensitivity of the skin, bladder over distension; allergic reaction; shoulder injury related to positioning; fat, blood and air clots to other areas of the body like heart, lungs, brain; failure of internal organs such as lungs, kidneys, liver and excessive bleeding. If blood transfusions are necessary, note that transfusions may cause intolerance reactions such as anaphylaxis or other complex reactions. Despite best efforts, the results of spine surgery might not heal in terms of bone, soft tissues such as skin, fascia, ligaments, and joints. Additionally, in order to achieve best possible results, spine surgery may be carried out beyond the initially planned levels and involve decompression, fusion including insertion of hardware at levels other than the original intended area of surgical interest change some portions of the procedure in order to ensure the best possible outcomes. With spine surgery and spinal fusion, there are different off label uses of instrumentation (devices, implants and hardware) as well as biological substances (bone morphogenic proteins, demineralized bone matrix) as well as using extra bone from allograft sources (i.e. cadaver bone) or autograft (iliac crest bone, ribs, or the spine itself). The patient has been given information about these practices and their inherent risks and benefits. Nazario Mcallister Physician Assistants are medically trained surgical providers who function in the outpatient, inpatient, and operating room setting under the direct supervision of the attending surgeon.They assist in the operating room with direct supervision of the attending surgeons. The patient has had a chance to review all the listed information, has been given print outs detailing this information, and has had all his/her questions answered to their satisfaction. It was my pleasure to have seen and examined Ms. Andino. In our visit today we have had a chance to go over my understanding of our patient's current condition, the natural course history without intervention and various interventional options. Questions were invited and answered, and the patient wishes to proceed as outlined above. I have seen and examined the patient for 25 minutes and we have spent more than 50% of the time in repeat and detailed counseling about the patient's condition, its natural course history with out and as much as can be predicted with surgery and re-review of various surgical treatment options. In conclusion,Ms. Andino and her spouse/partner requested we proceed with the above suggested surgery and are willing to accept risks and limitations of the suggested surgery as nature of the disease process and our best attempts at treatment for the condition. Thank you again for allowing us to be part of your patient's care. Please don't hesitate to contact me if you have any further questions. Signed and authenticated by: Jomar Cristobal [facility] [address] [place] [id number] This message is confidential, intended only for the named recipient(s) and may contain information that is privileged or exempt from disclosure under applicab le law. If you are not the intended recipient(s), you are notified that the dissemination, distribution or copying of this information is strictly prohibited. If you received this message in error, please notify the sender then delete this message. Patient verbalizes understanding of the information discussed.
[2020-11-13] MEDS: LACTATED RINGERS 1,000 ML IV SCH (06:48)
[2020-11-13] MEDS ORDERED: HYDROmorphone 0.5 MG/0.5 ML SYRINGE IVP PRN (07:00)
[2020-11-13] MEDS ORDERED: fentaNYL (PF) 50 MCG/ML 2 ML AMP IVP PRN (07:00)
--- NOTE | 2020-11-13 07:05 | P.PN ---
Progress Note - Text Progress Note Date: 11/13/20 Pt s/e in preop. No other issues. Reviewed risks again. Discussed case with anesthesia. She is ready and willing to proceed. Site marked. Consent confirmed. NPO. No blood thinners. Art line and central line pending.
[2020-11-13 07:09] LABS: Glucose,Whole Blood 169 mg/dL (75-99)
--- NOTE | 2020-11-13 07:43 | P.ANPRN ---
Procedure Note - Anesthesia - Invasive Line Right Central Line Time Out Performed: Yes Date of Procedure: 11/13/20 Time of Procedure: 07:20 Location of Patient: PreOp Preparation: Sterile Prep, Sterile Dressing Ultrasound Used: Yes Purpose - Visualization and Identification of Vasculature: Yes Needle Guage: 18g angion Image Stored and Saved: Yes Narrative: Central line placement per sterile protocol utilized. Right neck prepped. +local ++cvp +jwire +uneventful dilation and introduction right IJ TLC. Non Pulsitile. lumens bled and flushed x3. Sutured, dressed.
[2020-11-13] MEDS ORDERED: SODIUM CHLORIDE 0.9% IRRIG 1,000 ML BTL IRRIGATION ONE (07:45)
[2020-11-13] MEDS ORDERED: fentaNYL (PF) 50 MCG/ML 2 ML AMP ONE (07:45)
[2020-11-13] MEDS ORDERED: ALBUMIN HUMAN 5% (12.5gm) 250 ML BOTTLE IVPB ONE (07:45)
[2020-11-13] MEDS ORDERED: SUCCINYLCHOLINE CHLORIDE 100 MG/5 ML SYR IV ONE (07:45)
[2020-11-13] MEDS ORDERED: LIDOCAINE 1% INJ 10MG/ML (20 ML MDV) ONE ×2 (07:45→20:14)
[2020-11-13] MEDS ORDERED: SODIUM CHLORIDE 0.9% 100 ML BAG ONE ×2 (07:45)
[2020-11-13] MEDS ORDERED: ceFAZolin 1,000 MG VIAL ONE (07:45)
[2020-11-13] MEDS ORDERED: PROPOFOL 10 MG/ML 20 ML VIAL IV ONE (07:45)
[2020-11-13] MEDS ORDERED: TRANEXAMIC ACID 1,000 MG/10 ML VIAL ONE (07:45)
[2020-11-13] MEDS ORDERED: HEPARIN SODIUM,PORCINE 10,000 UNIT/ML 1 ML VIAL ONE (07:45)
[2020-11-13] MEDS ORDERED: INSULIN REGULAR 100 UNIT/ML VIAL (IV) IV ONE (07:45)
[2020-11-13] MEDS ORDERED: PHENYLEPHRINE-0.9% NACL SYG 1,000 MCG/10 ML SYRINGE ONE (07:45)
[2020-11-13] MEDS ORDERED: ROCURONIUM 10 MG/ML (5 ML VIAL) IV ONE (07:45)
[2020-11-13] MEDS ORDERED: LIDOCAINE 1%-EPI 1:100,000 20 ML VIAL SQ ONE (08:07)
[2020-11-13] MEDS ORDERED: GELATIN SPONGE,ABSORB (LARGE) 1 EACH SPONGE TOPICAL ONE ×3 (08:07→16:05)
[2020-11-13] MEDS ORDERED: THROMBIN (BOVINE) 5,000 UNIT VIAL TOPICAL ONE ×3 (08:07→16:06)
[2020-11-13] MEDS ORDERED: BUPIVACAINE (PF) 0.25% 30 ML VIAL SQ ONE (08:07)
[2020-11-13] MEDS ORDERED: ceFAZolin 3,000 MG in SODIUM CHLORIDE 0.9% IRRIGATIO 3,000 ML IRRIGATION ONE (09:40)
[2020-11-13] MEDS ORDERED: LACTATED RINGERS 1,000 ML IV ONE ×3 (11:03→18:20)
[2020-11-13 14:55] LABS: HCT 34.1 % (34.0-46.0); HGB 11.8 gm/dL (11.4-16.0); MCH 33.1 pg (25.0-35.0); MCHC 34.6 g/dL (31.0-37.0); MCV 95.9 fL (80.0-100.0); Mean Platelet Volume 8.9; RBC 3.55 m/uL (3.80-5.40); RDW 13.9 % (11.5-15.5); WBC 11.3 k/uL (3.8-10.6)
[2020-11-13 14:57] LABS: Platelet Count 178 k/uL (150-450)
[2020-11-13] MEDS ORDERED: SODIUM CHLORIDE 0.9% 100 ML with ceFAZolin 2,000 MG IV ONE ×2 (16:00)
[2020-11-13] MEDS ORDERED: VANCOMYCIN 1,000 MG VIAL MISCELLANE ONE (17:49)
[2020-11-13 17:59] LABS: Basophils % (A) 0 %; Eosinophils # (A) 0.1 k/uL (0-0.7); Eosinophils % (A) 1 %; HCT 31.1 % (34.0-46.0); HGB 10.4 gm/dL (11.4-16.0); Lymphocytes # (A) 2.1 k/uL (1.0-4.8); Lymphocytes % (A) 14 %; MCH 31.1 pg (25.0-35.0); MCHC 33.5 g/dL (31.0-37.0); MCV 92.8 fL (80.0-100.0); Mean Platelet Volume 8.5; Monocytes # (A) 0.6 k/uL (0-1.0); Monocytes % (A) 4 %; Neutrophils # (A) 11.8 k/uL (1.3-7.7); Neutrophils % (A) 80 %; Platelet Count 126 k/uL (150-450); RBC 3.35 m/uL (3.80-5.40); RDW 15.5 % (11.5-15.5); WBC 14.7 k/uL (3.8-10.6)
[2020-11-13 18:05] LABS: ABG Base Excess -13.4 mmol/L; ABG HCO3 14 mmol/L (21-25); ABG Oxygen Saturation 99.4 % (94-97); ABG PCO2 37 mmHg (35-45); ABG PH 7.19 (7.35-7.45); ABG PO2 193 mmHg (83-108)
[2020-11-13 18:06] LABS: Allen Test Performed? Yes
[2020-11-13 18:11] LABS: Calcium 7.7 mg/dL (8.4-10.2)
[2020-11-13 18:15] LABS: Potassium 6.4 mmol/L (3.5-5.1)
[2020-11-13] MEDS ORDERED: NA PHOS,M-B/NA PHOS,DI-BA 133 ML ENEMA RECTAL PRN (19:14)
[2020-11-13] MEDS ORDERED: MAGNESIUM HYDROXIDE 2,400 MG/10 ML CUP PO PRN (19:14)
[2020-11-13] MEDS ORDERED: SENNOSIDES-DOCUSATE SODIUM 1 EACH TAB PO PRN (19:14)
[2020-11-13] MEDS ORDERED: bisacodyL 10 MG SUPP RECTAL PRN (19:14)
[2020-11-13 19:25] LABS: Glucose,Whole Blood 362 mg/dL (75-99)
--- NOTE | 2020-11-13 19:27 | P.PN ---
Progress Note - Text Progress Note Date: 11/13/20 Brief Post Op Note: Pre op Dx: Pseudoarthrosis Lumbar spine Post Op Dx: Same Procedure: L2-P revision decompression and fusion; dural erosion with dural repair Surgeon: Jeanna Anesthesia: GETA EBL: 1900 mL Fluids: 3200 mL Cell saver: 350 mL back Urine: 550 mL Complications: None Disposition: To ICU for BP support, on pressers, resuscitation and recovery Post op Plan: Non contrasted CT scan of the lumbar spine when able Encourage ambulation ICU mgt for SBT in AM if possible Lay flat 24 hrs HOB no greater than 10 deg Pain control Mech DVT PPX Transfuse to vitals and pressers , RBC, FFP and platelets ordered Encourage IS once extubated
[2020-11-13] MEDS ORDERED: propofoL 100 ML IV ONE (19:38)
[2020-11-13] MEDS: NOREPINEPHRINE 4 MG in SODIUM CHLORIDE 0.9% 250 ML IV SCH (19:48)
--- NOTE | 2020-11-13 20:23 | XR ---
EXAMINATION TYPE: XR chest 1V portable DATE OF EXAM: 11/13/2020 COMPARISON: 09/10/2020 HISTORY: Check tube placement TECHNIQUE: Single view FINDINGS: Endotracheal tube is 4 cm from the bernarda. There is right jugular catheter with the tip in the superi or vena cava. There is large right pneumothorax. Right lung appears completely collapsed. Heart is sh ifted somewhat to the left side. There is no heart failure. IMPRESSION: There is tension right-sided pneumothorax. This exam was discussed with the patient's nurse Ian at 8:30 PM.
[2020-11-13] MEDS ORDERED: CISATRACURIUM 2 MG/ML 5 ML VIAL IV ONE (20:32)
[2020-11-13] MEDS ORDERED: SODIUM BICARB 8.4% 50 ML SYR (1 MEQ/ML) IV STA (20:58)
--- NOTE | 2020-11-13 21:04 | XR ---
EXAMINATION TYPE: XR chest 1V DATE OF EXAM: 11/13/2020 COMPARISON: NONE HISTORY: Chest tube placement TECHNIQUE: Single view FINDINGS: There is right-sided chest tube. There is apparent complete clearing of the right side pneu mothorax. Chest tube tip is over the medial right upper lobe. The endotracheal tube is 2.8 cm from th e bernarda. There is left axillary pacemaker. There is right jugular catheter with tip in the superior vena cava. IMPRESSION: There is clearing of the large right-sided pneumothorax. There is some patchy atelectasis around the left pulmonary hilum and also in the right lower lobe.
[2020-11-13] MEDS: HYDROmorphone 1 MG/ML 1 ML SYRINGE IVP PRN (21:08)
[2020-11-13] MEDS: traMADol 50 MG TAB PO SCH (21:10)
[2020-11-13 21:15] LABS: ABG HCO3 21 mmol/L (21-25); ABG Oxygen Saturation 98.2 % (94-97); ABG PCO2 45 mmHg (35-45); ABG PH 7.27 (7.35-7.45); ABG PO2 110 mmHg (83-108); ABG TCO2 22 mmol/L (19-24); Allen Test Performed? Yes
--- NOTE | 2020-11-13 21:19 | OP ---
OPERATIVE REPORT OPERATIVE REPORT: Placement of a right-sided chest tube/tube thoracostomy. PREOPERATIVE DIAGNOSIS: Tension pneumothorax. POSTOPERATIVE DIAGNOSIS: Tension pneumothorax. ANESTHESIA USED: The patient received 1 mg of Dilaudid, 10 mg of Nimbex, and 10 mL of lidocaine injected locally at the site. PROCEDURE DESCRIPTION: The patient was placed in supine position. The area at the level of the sixth intercostal space and anterior axillary line was prepared in a sterile fashion. Drapes were applied. The right breast was taped and moved out of the way. Then at that level the area was locally anesthetized with lidocaine after preparing the field in a sterile fashion. A 2.0 cm incision was made at the level and fascia was dissected using index finger and Ophelia forceps. The pleural space was entered, and as soon as the pleural space was entered, there was a gush of air noted from the pleural cavity. Then a size 24 argyle chest tube was inserted into the pleural cavity pointing apically and posteriorly. The incision was secured using 0.0 Ethibond sutures, and the chest tube was secured nicely. Then sterile dressing was applied, and follow-up chest x-ray showed complete re-expansion of the right lung, and no residual pneumothorax noted. The procedure was well tolerated, and no evidence of complications. MMODL / IJN: [id number] /
--- NOTE | 2020-11-13 21:28 | P.CNPUL ---
History of Present Illness Consult date: 11/13/20 Requesting physician: Jomar Meeks Reason for consult: other (ICU management) Chief complaint: Status post L2 pelvic fusion History of present illness: This is a 64-year-old female with history of multiple medical problems including asthma, type 2 diabetes, dyslipidemia, degenerative joint disease, obstructive sleep apnea syndrome, history of chronic bilateral neuropathy, chronic kidney di sease stage III, history of chronic low back pain, patient was recently seen by Dr. Meeks and on consultation for chronic back pain. Patient had a myelogram done and [place], apparently patient failed medical therapy for chronic low back pain, she had no bowel or bladder issues. Had a previous lumbar laminectomy in 1986. Lumbar fusion in 2006 and 2018. Lumbar epidural steroid injections on March 23 2020. And she underwent physical therapy in 2018 without any relief. Patient has been complaining of intermittent low back pain for the last 54 years. Pain was associated with radiculopathy to the left leg, worse with sitting or laying down and with stairs. Patient has been chronically on pain medications. Today the patient underwent L2 he revisions decompression and fusion, postoperatively she was noted to have hypotension, metabolic acidosis, estimated blood loss was 1900 mL, received 5200 MLS with Cell Saver 350 ML back. Patient is receiving more blood, she was noted to be hypotensive in spite of all the fluids given, and she was on 0.08 mcg/kg/m of norepinephrine when she arrived to the ICU. Chest x-ray was done as soon as the patient was brought into the ICU, and she had the endotracheal tube noted to be in the right position, however the patient had a large right tension pneumothorax. I was notified about this patient earlier by the surgeon, that she was being admitted to the ICU, and shortly after she arrived to the ICU was notified by the nurse taking care of the patient hence I came in to evaluate the patient, and went ahead and performed a right sided chest tube thoracostomy. Immediate relief of her tension pneumothorax was noted based on follow-up chest x-ray. And slight improvement was noted also and her blood pressure. I have also recommended treatment of her hyperkalemia, patient was acidotic, bicarb was ordered, and I also ordered calcium gluconate, and recommended repeat ABG and possibly repeat potassium in the next hour. Earlier ABG showed a pO2 of 193 pCO2 of 37 pH of 7.19 with a bicarb of 14 and her potassium was 6.4 with BUN of 37 creatinine of 1.33. Blood sugar was also noted to be elevated at 392. And considering her severe metabolic acidosis, I'm recommending that the patient goes an insulin drip. Review of Systems ROS unobtainable: due to endotracheal tube Past Medical History Past Medical History: Asthma, Diabetes Mellitus, GERD/Reflux, Hyperlipidemia, Musculoskeletal Disorder, Osteoarthritis (OA), Pneumonia, Renal Disease, Sleep Apnea/CPAP/BIPAP, Vascular Disorder Additional Past Medical History / Comment(s): Neuropathy bilateral hands/legs/feet, Chronic Kidney Disease Stage III, hx kidney stones, UTI/septic due to lodged kidney stone, BIPAP use, hx bronchitis, orthostatic hypotension, vertigo, chronic low back pain/DDD, Scoliosis, bilateral carpal tunnel syndrome, bilateral varicosities, migraines, hx gout, hx anemia(from nicked vein in left kidney after surgery for kidney stone), "embolism in my chest", followed by Dr Grijalva. History of Any Multi-Drug Resistant Organisms: None Reported Past Surgical History: AICD, Appendectomy, Back Surgery, Cardiac Ablation, Section, Cholecystectomy, Heart Catheterization, Hysterectomy, Joint Replacement, Orthopedic Surgery, Pacemaker Additional Past Surgical History / Comment(s): Bilateral knee arthroscopy, bilateral total knee replacements, pain clinic procedures, D&C, colonoscopy, bilateral leg varicose vein surgery, lithotripsies, surgical removal of stones, Myelogram([facility]) 2019, Lumbar fusion L3-4, lumbar puncture for headaches 2019 (had spinal headache post), laminectomy, bakers cyst removed from right knee, bilateral cataract surgery. Past Anesthesia/Blood Transfusion Reactions: No Reported Reaction Additional Past Anesthesia/Blood Transfusion Reaction / Comment(s): Pt has received blood without reaction. Type of Cardiac Device: Permanent Pacemaker, AICD Device Placement Date:: 09/10/20 Past Psychological History: Anxiety, Depression Smoking Status: Never smoker Past Alcohol Use History: None Reported Past Drug Use History: None Reported - Past Family History Father Family Medical History: Cancer Additional Family Medical History / Comment(s): Stomach cancer. Brother(s) Family Medical History: Cancer Additional Family Medical History / Comment(s): Lung cancer. Sister(s) Family Medical History: Cancer Additional Family Medical History / Comment(s): Sister had stomach/colon/part of pancreas cancers. Mother Family Medical History: Cancer Additional Family Medical History / Comment(s): Ovarian and cervical cancer. Medications and Allergies Home Medications Medication Instructions Recorded Confirmed Type Aspirin EC [Ecotrin Low Dose] 81 mg PO HS 11/02/18 11/13/20 History Montelukast [Singulair] 10 mg PO HS 11/02/18 11/13/20 History Spironolactone [Aldactone] 12.5 mg PO DAILY 11/02/18 11/13/20 History Atorvastatin [Lipitor] 20 mg PO HS 09/05/19 11/13/20 History Carvedilol [Coreg] 12.5 mg PO BID 09/05/19 11/13/20 History Iron 28mg 28 mg PO DAILY 09/05/19 11/13/20 History Meclizine [Antivert] 12.5 mg PO Q12H PRN 09/05/19 11/13/20 History Topiramate [Topamax] 50 mg PO HS 09/05/19 11/13/20 History tiZANidine [Zanaflex] 4 mg PO HS 09/05/19 11/13/20 History Furosemide [Lasix] 10 mg PO DAILY 12/06/19 11/13/20 History calcitrioL [Rocaltrol] 0.25 mcg PO NORRIS 12/06/19 11/13/20 History Budesonide [Pulmicort Flexhaler] 2 puff INHALATION RT-BID 02/09/20 11/13/20 History Cyclobenzaprine [Flexeril] 5 mg PO BID PRN 02/09/20 11/13/20 History Docusate [Colace] 100 mg PO Q48H 02/09/20 11/13/20 History Ergocalciferol [Vitamin D2 50,000 unit PO Q28D 02/09/20 11/13/20 History (DRISDOL)] Insulin Glargine,Hum.rec.anlog 40 unit SQ HS 02/09/20 11/13/20 History [Lantus Solostar Pen] Insulin Lispro [humaLOG Kwikpen] 15 unit SQ TID-W/MEALS 02/09/20 11/13/20 History Magnesium Oxide [Shaikh] 1,500 mg PO HS 02/09/20 11/13/20 History Midodrine [ProAmatine] 5 mg PO TID 02/09/20 11/13/20 History Albuterol Sulfate [Ventolin HFA] 2 puff INHALATION QID PRN 04/20/20 11/13/20 History traMADol HCL 50 mg PO Q12HR PRN 04/20/20 11/13/20 History Dupilumab [Dupixent Syringe] 300 mg SQ Q14D 07/25/20 11/13/20 History HYDROcodone/APAP 10-325MG [[place] 1 tab PO Q6HR PRN 09/06/20 11/13/20 History 10-325] Allergies Allergy/AdvReac Type Severity Reaction Status Date / Time No Known Allergies Allergy Verified 11/13/20 06:42 Physical Exam Vitals: Vital Signs Temp Pulse Pulse Resp BP BP Pulse Ox 11/13/20 15:24 97.7 F 81 15 114/62 97 11/13/20 06:46 96.9 F L 66 18 121/64 96 Intake and Output 11/13/20 11/13/20 11/13/20 06:59 14:59 22:59 Intake Total 200 1851 2030 Output Total 2130 Balance 200 1851 -100 Intake: IV 200 1851 1100 Blood Product 930 Rc As-1 Unit 310 [id number] Rc As-1 Unit 310 [id number] Rc Pheresis 2 As3 Unit 310 [id number] Rc Pheresis As-3 Unit 0 [id number] Output: Urine 630 Estimated Blood Loss 1500 Other: Weight 106.7 kg Physical Exam: Revealed a 64-year-old female on mechanical ventilation, sedated, on multiple drips including norepinephrine and she is on propofol drip. Head: Atraumatic, normocephalic, patient does look pale. HEENT:[Positive pallor, nonicteric, shortness neck, endotracheal tube and o rogastric tubes are intact. Chest: [Good breath sounds on the left side, extremely diminished breath sounds on the right side. No crackles nor rhonchi no wheezes. Cardiac Exam: Stent S1 and S2, no S3 gallop. No murmur. Abdomen: Obese, [Soft, nontender, no megaly, no rebound, no guarding, normal b owel sounds.] Extremities: [No clubbing, no edema, no cyanosis.] Neurological Exam: Could not assess, patient just came up from the OR, remains sedated, and on propofol. Psychiatric: Could not assess. Skin: Looks pale and dry, no cyanosis. Results - Laboratory Findings CBC and BMP: 11/13/20 17:13 11/13/20 17:13 ABG ABG pH 7.19 (7.35-7.45) L* 11/13/20 17:34 ABG pCO2 37 mmHg (35-45) 11/13/20 17:34 ABG pO2 193 mmHg (83-108) H 11/13/20 17:34 ABG O2 Saturation 99.4 % (94-97) H 11/13/20 17:34 Abnormal lab findings: Abnormal Labs 11/07/20 11/13/20 11/13/20 08:28 06:56 14:20 WBC 11.3 H RBC 3.55 L Hgb Hct Plt Count Neutrophils # ABG pH ABG pO2 ABG HCO3 ABG O2 Saturation Sodium Potassium Chloride Carbon Dioxide BUN Creatinine Glucose POC Glucose (mg/dL) 169 H Calcium Crossmatch See Detail 11/13/20 11/13/20 11/13/20 17:13 17:13 17:34 WBC 14.7 H RBC 3.35 L Hgb 10.4 L Hct 31.1 L Plt Count 126 L Neutrophils # 11.8 H ABG pH 7.19 L* ABG pO2 193 H ABG HCO3 14 L ABG O2 Saturation 99.4 H Sodium 132 L Potassium 6.4 H* Chloride 108 H Carbon Dioxide 16 L BUN 37 H Creatinine 1.33 H Glucose 392 H POC Glucose (mg/dL) Calcium 7.7 L Crossmatch 11/13/20 19:23 WBC RBC Hgb Hct Plt Count Neutrophils # ABG pH ABG pO2 ABG HCO3 ABG O2 Saturation Sodium Potassium Chloride Carbon Dioxide BUN Creatinine Glucose POC Glucose (mg/dL) 362 H Calcium Crossmatch - Diagnostic Findings Chest x-ray: image reviewed (As noted in HPI, patient had a large tension pneumothorax on the right side, follow-up chest x-ray post chest tube insertion showed complete reexpansion of the right lung. And no residual pneumothorax noted.) Assessment and Plan Assessment: Impression: pseudoarthrosis/lumbar spine. With chronic low back pain and left lower extremity radiculopathy and failure of multiple previous surgeries and medical therapies and physical therapy on this patient. Status post L2p revision decompression and fusion, dural erosion with dural repair Right sided tension pneumothorax most likely secondary from earlier right IJ central line placement prior to surgery. Apparently the patient had a central line placed earlier by anesthesia. Postoperative hypotension, secondary to blood loss, patient had 1900 mL of EBL, it is also related to sedation, and also related to tension pneumothorax. History of multiple comorbidities including asthma, type 2 diabetes, dyslipidemia, degenerative joint disease, chronic kidney disease, obstructive sleep apnea syndrome, history of cardiac ablation, AICD placement, and multiple orthopedic surgeries. Recommendation: Patient was seen and evaluated in the ICU shortly after she arrived and a right- sided chest tube was placed with complete clearance of her right-sided pneumothorax. Patient to be placed on insulin for her hyperglycemia. Her ventilator settings were adjusted, she is now on assist control rate of 20, volume is 400 FiO2 is down to 45% and PEEP of 5. Follow-up ABG showed improvement in her pH. With pH of 7.27 and pCO2 of 45. Patient will receive bicarb, and she will receive calcium gluconate, will recheck her potassium, may or may not require Kayexalate. Likely once we correct her acidosis, her potassium should correct nicely. Patient will receive more blood transfusion as ordered earlier by orthopedics. Will taper and likely discontinue norepinephrine shortly. Repeat chest x-ray in a.m. Repeat ABG in a.m. DVT and GI prophylaxis. Patient will have Venodyne boots for DVT prophylaxis. Discussed this patient's condition and status with the admitting surgeon/Dr. Meeks Critical care time is over 30 minutes, not including the time spent on procedures./Right-sided chest tube insertion Time with Patient: Greater than 30
[2020-11-13] MEDS ORDERED: CALCIUM GLUCONATE 1 GM in SODIUM CHLORIDE 0.9% 100 ML IVPB ONE (21:30)
[2020-11-13] MEDS: CHLORHEXIDINE GLUCONATE 15 ML CUP MUCOUS MEM SCH (21:42)
[2020-11-13] MEDS: PANTOPRAZOLE 40 MG/10 ML VIAL IVP SCH (21:44)
[2020-11-13 22:08] LABS: Glucose,Whole Blood 368 mg/dL (75-99)
[2020-11-13] MEDS: INSULIN REGULAR 100 UNIT in SODIUM CHLORIDE 0.9% 100 ML IV SCH (22:14)
[2020-11-13] MEDS: ACETAMINOPHEN TAB 500 MG TAB PO SCH (22:28)
[2020-11-14 01:28] LABS: Glucose,Whole Blood 298 mg/dL (75-99)
[2020-11-14 01:28] LABS: Glucose,Whole Blood 291 mg/dL (75-99)
[2020-11-14 01:59] LABS: Glucose,Whole Blood 206 mg/dL (75-99)
[2020-11-14 03:05] LABS: Glucose,Whole Blood 208 mg/dL (75-99)
[2020-11-14 04:41] LABS: Basophils % (A) 0 %; Eosinophils % (A) 0 %; HCT 37.1 % (34.0-46.0); HGB 12.7 gm/dL (11.4-16.0); Lymphocytes # (A) 1.2 k/uL (1.0-4.8); Lymphocytes % (A) 8 %; MCH 31.2 pg (25.0-35.0); MCHC 34.3 g/dL (31.0-37.0); Mean Platelet Volume 8.7; Monocytes # (A) 0.9 k/uL (0-1.0); Monocytes % (A) 6 %; Neutrophils # (A) 12.7 k/uL (1.3-7.7); Neutrophils % (A) 85 %; Poikilocytosis Slight; RBC 4.08 m/uL (3.80-5.40); RDW 15.5 % (11.5-15.5)
[2020-11-14 04:49] LABS: ABG Base Excess -3.3 mmol/L; ABG HCO3 22 mmol/L (21-25); ABG Oxygen Saturation 97.6 % (94-97); ABG PCO2 40 mmHg (35-45); ABG PH 7.35 (7.35-7.45); ABG PO2 90 mmHg (83-108); ABG TCO2 24 mmol/L (19-24)
[2020-11-14 04:54] LABS: Allen Test Performed? no
[2020-11-14 05:00] LABS: Glucose,Whole Blood 158 mg/dL (75-99)
[2020-11-14] MEDS: NOREPINEPHRINE 4 MG in SODIUM CHLORIDE 0.9% 250 ML IV SCH ×2 (05:00→17:43)
[2020-11-14 05:01] LABS: Albumin 2.4 g/dL (3.5-5.0); Calcium 8.3 mg/dL (8.4-10.2); Potassium 4.1 mmol/L (3.5-5.1); Total Bilirubin 0.6 mg/dL (0.2-1.3); Total Protein 4.1 g/dL (6.3-8.2)
[2020-11-14] MEDS: ACETAMINOPHEN TAB 500 MG TAB PO SCH ×3 (05:41→17:40)
[2020-11-14 05:53] LABS: Anisocytosis (M) Present; Poikilocytosis (M) Present; Polychromasia Present
[2020-11-14 05:54] LABS: Platelet Count 68 k/uL (150-450)
[2020-11-14] MEDS: LACTATED RINGERS 1,000 ML IV SCH (06:09)
[2020-11-14 06:30] LABS: Glucose,Whole Blood 171 mg/dL (75-99)
--- NOTE | 2020-11-14 06:49 | FL ---
EXAMINATION TYPE: FL guidance operating room, XR lumbar spine 2 or 3V DATE OF EXAM: 11/13/2020 CLINICAL HISTORY: Low back pain. TECHNIQUE: Fluoroscopy. Intraoperative 2 views lumbar spine. COMPARISON: Outside CT myelogram August 16, 2020. FINDINGS: Fluoroscopic guidance was provided during PLDF procedure performed by Dr. Meeks. A t otal of 55 seconds of fluoroscopic time was utilized during the procedure and 8 spot intraoperative i mages are acquired. Intraoperative images obtained show multilevel interpedicular rods and screws bilaterally fixating th e lumbar spine. Satisfactory alignment is seen on intraoperative images saved. IMPRESSION: As Above.
[2020-11-14 08:03] LABS: Glucose,Whole Blood 164 mg/dL (75-99)
--- NOTE | 2020-11-14 08:05 | P.PN ---
Subjective Progress Note Date: 11/14/20 Principal diagnosis: Pseudoarthrosis Patient seen and examined this morning she is ventilated and sedated still since last night. On chest x-ray last night the ICU team performed a tension pneumothorax likely due to her IJ placement they performed a chest tube last night on the right-hand side. She has been stable since surgery and more so since then her vitals currently are stable nursing is at bedside stated that she did well overnight. She had about 100 out of her deep drain and nothing out of her superficial drain overnight. She was responding to commands however she is now more sedated she is moving her lower extremities and upper extremities however not following commands at this time. Bill catheter is still in place and has good output. Her labs have normalized as well as her blood gases Objective - Vital Signs Vital signs: Vital Signs Temp 98.7 F 11/14/20 04:00 Pulse 87 11/14/20 07:15 Resp 22 11/14/20 07:15 BP 106/69 11/14/20 07:00 Pulse Ox 98 11/14/20 07:15 Intake & Output 11/13/20 11/14/20 11/14/20 18:59 06:59 18:59 Intake Total 3881 1563.054 51.612 Output Total 2130 445 210 Balance 1751 1118.054 -158.388 Weight 112.1 kg Intake: IV 2951 750 0.9 @ 75 mL/hr 750 Intake, IV Titration 503.054 51.612 Amount Calcium Gluconate 1 gm In 100 Sodium Chloride 0.9% 100 ml @ 100 mls/hr IVPB ONCE ONE Rx#:[id number] Insulin Regular 100 unit 71.283 In Sodium Chloride 0.9% 100 ml @ Per Protocol IV .Q0M [facility] Rx#:[id number] Lactated Ringers 1,000 ml 20 20 @ 0 mls/hr IV .STK-MED ONE Rx#:[id number] Norepinephrine 4 mg In 117.757 Sodium Chloride 0.9% 250 ml @ 0.05 MCG/KG/MIN 20. 326 mls/hr IV .[id number] [facility] Rx#:[id number] ceFAZolin 2 gm In Sodium 50 Chloride 0.9% 50 ml @ 100 mls/hr IVPB Q8HR [facility] Rx# :[id number] propofoL 1,000 mg In 144.014 31.612 Empty Bag 1 bag @ Titrate IV .Q0M [facility] Rx#: [id number] Blood Product 930 310 Rc As-1 Unit 310 [id number] Rc As-1 Unit 310 [id number] Rc Pheresis 2 As3 Unit 310 [id number] Rc Pheresis As-3 Unit 310 [id number] Output: Drainage 175 Right 175 Urine 630 445 35 Estimated Blood Loss 1500 Other: Voiding Method Indwelling Catheter ABP, PAP, CO, CI - Last Documented Arterial Blood Pressure 129/68 - Exam On exam the patient does not follow commands at this time she does spontaneously move her lower extremities and upper extremities against restraints she currently does not open her eyes to verbal stimuli but somewhat to painful stimuli. She has good pulses distally in all 4 extremities her pupils are equal and reactive and she has intact gag at this time. - Labs CBC & Chem 7: 11/14/20 03:45 11/14/20 03:45 Labs: Abnormal Lab Results - Last 24 Hours (Table) 11/07/20 11/13/20 11/13/20 Range/Units 08:28 14:20 17:13 WBC 11.3 H 14.7 H (3.8-10.6) k/uL RBC 3.55 L 3.35 L (3.80-5.40) m/uL Hgb 10.4 L (11.4-16.0) gm/dL Hct 31.1 L (34.0-46.0) % Plt Count 126 L (150-450) k/uL Neutrophils # 11.8 H (1.3-7.7) k/uL ABG pH (7.35-7.45) ABG pO2 (83-108) mmHg ABG HCO3 (21-25) mmol/L ABG O2 Saturation (94-97) % Sodium (137-145) mmol/L Potassium (3.5-5.1) mmol/L Chloride (98-107) mmol/L Carbon Dioxide (22-30) mmol/L BUN (7-17) mg/dL Creatinine (0.52-1.04) mg/dL Glucose (74-99) mg/dL POC Glucose (mg/dL) (75-99) mg/dL Calcium (8.4-10.2) mg/dL AST (14-36) U/L ALT (4-34) U/L Total Protein (6.3-8.2) g/dL Albumin (3.5-5.0) g/dL Urine Ketones (Negative) Crossmatch See Detail 11/13/20 11/13/20 11/13/20 Range/Units 17:13 17:34 19:23 WBC (3.8-10.6) k/uL RBC (3.80-5.40) m/uL Hgb (11.4-16.0) gm/dL Hct (34.0-46.0) % Plt Count (150-450) k/uL Neutrophils # (1.3-7.7) k/uL ABG pH 7.19 L* (7.35-7.45) ABG pO2 193 H (83-108) mmHg ABG HCO3 14 L (21-25) mmol/L ABG O2 Saturation 99.4 H (94-97) % Sodium 132 L (137-145) mmol/L Potassium 6.4 H* (3.5-5.1) mmol/L Chloride 108 H (98-107) mmol/L Carbon Dioxide 16 L (22-30) mmol/L BUN 37 H (7-17) mg/dL Creatinine 1.33 H (0.52-1.04) mg/dL Glucose 392 H (74-99) mg/dL POC Glucose (mg/dL) 362 H (75-99) mg/dL Calcium 7.7 L (8.4-10.2) mg/dL AST (14-36) U/L ALT (4-34) U/L Total Protein (6.3-8.2) g/dL Albumin (3.5-5.0) g/dL Urine Ketones (Negative) Crossmatch 11/13/20 11/13/20 11/13/20 Range/Units 21:07 22:07 22:45 WBC (3.8-10.6) k/uL RBC (3.80-5.40) m/uL Hgb (11.4-16.0) gm/dL Hct (34.0-46.0) % Plt Count (150-450) k/uL Neutrophils # (1.3-7.7) k/uL ABG pH 7.27 L (7.35-7.45) ABG pO2 110 H (83-108) mmHg ABG HCO3 (21-25) mmol/L ABG O2 Saturation 98.2 H (94-97) % Sodium (137-145) mmol/L Potassium (3.5-5.1) mmol/L Chloride (98-107) mmol/L Carbon Dioxide (22-30) mmol/L BUN (7-17) mg/dL Creatinine (0.52-1.04) mg/dL Glucose (74-99) mg/dL POC Glucose (mg/dL) 368 H (75-99) mg/dL Calcium (8.4-10.2) mg/dL AST (14-36) U/L ALT (4-34) U/L Total Protein (6.3-8.2) g/dL Albumin (3.5-5.0) g/dL Urine Ketones Trace H (Negative) Crossmatch 11/13/20 11/14/20 11/14/20 Range/Units 22:54 00:14 01:59 WBC (3.8-10.6) k/uL RBC (3.80-5.40) m/uL Hgb (11.4-16.0) gm/dL Hct (34.0-46.0) % Plt Count (150-450) k/uL Neutrophils # (1.3-7.7) k/uL ABG pH (7.35-7.45) ABG pO2 (83-108) mmHg ABG HCO3 (21-25) mmol/L ABG O2 Saturation (94-97) % Sodium (137-145) mmol/L Potassium (3.5-5.1) mmol/L Chloride (98-107) mmol/L Carbon Dioxide (22-30) mmol/L BUN (7-17) mg/dL Creatinine (0.52-1.04) mg/dL Glucose (74-99) mg/dL POC Glucose (mg/dL) 291 H 298 H 206 H (75-99) mg/dL Calcium (8.4-10.2) mg/dL AST (14-36) U/L ALT (4-34) U/L Total Protein (6.3-8.2) g/dL Albumin (3.5-5.0) g/dL Urine Ketones (Negative) Crossmatch 11/14/20 11/14/20 11/14/20 Range/Units 03:03 03:45 03:45 WBC 15.0 H (3.8-10.6) k/uL RBC (3.80-5.40) m/uL Hgb (11.4-16.0) gm/dL Hct (34.0-46.0) % Plt Count 68 L (150-450) k/uL Neutrophils # 12.7 H (1.3-7.7) k/uL ABG pH (7.35-7.45) ABG pO2 (83-108) mmHg ABG HCO3 (21-25) mmol/L ABG O2 Saturation (94-97) % Sodium (137-145) mmol/L Potassium (3.5-5.1) mmol/L Chloride 111 H (98-107) mmol/L Carbon Dioxide 21 L (22-30) mmol/L BUN 41 H (7-17) mg/dL Creatinine 1.33 H (0.52-1.04) mg/dL Glucose 182 H (74-99) mg/dL POC Glucose (mg/dL) 208 H (75-99) mg/dL Calcium 8.3 L (8.4-10.2) mg/dL AST 189 H (14-36) U/L ALT 147 H (4-34) U/L Total Protein 4.1 L (6.3-8.2) g/dL Albumin 2.4 L (3.5-5.0) g/dL Urine Ketones (Negative) Crossmatch 11/14/20 11/14/20 11/14/20 Range/Units 04:45 04:58 06:28 WBC (3.8-10.6) k/uL RBC (3.80-5.40) m/uL Hgb (11.4-16.0) gm/dL Hct (34.0-46.0) % Plt Count (150-450) k/uL Neutrophils # (1.3-7.7) k/uL ABG pH (7.35-7.45) ABG pO2 (83-108) mmHg ABG HCO3 (21-25) mmol/L ABG O2 Saturation 97.6 H (94-97) % Sodium (137-145) mmol/L Potassium (3.5-5.1) mmol/L Chloride (98-107) mmol/L Carbon Dioxide (22-30) mmol/L BUN (7-17) mg/dL Creatinine (0.52-1.04) mg/dL Glucose (74-99) mg/dL POC Glucose (mg/dL) 158 H 171 H (75-99) mg/dL Calcium (8.4-10.2) mg/dL AST (14-36) U/L ALT (4-34) U/L Total Protein (6.3-8.2) g/dL Albumin (3.5-5.0) g/dL Urine Ketones (Negative) Crossmatch Assessment and Plan Assessment: 64-year-old female postop day 1 L2 to pelvis fusion with T12 to S1 decompression, dural erosion and repair with right-sided tension pneumothorax status post chest tube placement 1. Status post multiple lumbar surgeries with low back pain and lower extremity weakness 2. Pseudoarthrosis L3-S1, incomplete instrumentation 3. Low back pain, LE radiculopathy 4. Neurogenic claudication 5. L3-S1 stenosis 6. Mechanical back pain Plan: -Appreciate workers compensation consultant and team management. Appreciate ICU management -Continue with ICU team management for extubation weaned to extubation as able -Trend labs transfuse for vital signs as necessary -Activity: Ambulate QID, OOB all meals, up and about, limit lifting bending twisting to less than 5 lbs. Use walker or cane if needed for stability. -Daily PT/OT, increase ambulation strength and balance. -No braces needed at this time, we will obtain an T LSO brace for her during her stay -Pain control: Adequate at this time -Meds: reviewed, continue with antibiotics -GI ppx: senna, Miralax -DC bill when up and about, bedside commode if needed -DVT PPX: OK to restart Heparin tonight -Hygiene: Shower daily. Maintain dressing clean and dry. Meticulous cleaning after BMs away from incision site -Drains: Maintain for now. Record output -Encourage IS 10x/hr -Dispo: Pending
[2020-11-14 08:21] LABS: Glucose,Whole Blood 161 mg/dL (75-99)
[2020-11-14] MEDS: traMADol 50 MG TAB PO SCH ×2 (08:25→20:26)
[2020-11-14] MEDS: PANTOPRAZOLE 40 MG/10 ML VIAL IVP SCH (08:26)
[2020-11-14] MEDS: CHLORHEXIDINE GLUCONATE 15 ML CUP MUCOUS MEM SCH (08:26)
[2020-11-14] MEDS: INSULIN REGULAR 100 UNIT in SODIUM CHLORIDE 0.9% 100 ML IV SCH (08:36)
--- NOTE | 2020-11-14 08:56 | XR ---
EXAMINATION TYPE: XR chest 1V portable DATE OF EXAM: 11/14/2020 COMPARISON: 11/13/2020 HISTORY: Chest tube placement TECHNIQUE: Single frontal view of the chest is obtained. FINDINGS: Cardiac device seen is a right-sided chest tube. ET and NG tube stable. Central line uncha nged. Bilateral infiltrate noted. Arthropathy of the shoulders. Heart size stable. Limited inspiratio n. IMPRESSION: Persistent bilateral areas of infiltrate stable.
[2020-11-14 09:10] LABS: Glucose,Whole Blood 206 mg/dL (75-99)
[2020-11-14 09:42] LABS: Glucose,Whole Blood 184 mg/dL (75-99)
--- NOTE | 2020-11-14 10:02 | P.PN ---
Subjective Progress Note Date: 11/14/20 Principal diagnosis: Status post L2- p fusion with T12 to S1 decompression dural erosion and repair, postoperative day #1 This is a 64-year-old female with history of multiple medical problems including asthma, type 2 diabetes, dyslipidemia, degenerative joint disease, obstructive sleep apnea syndrome, history of chronic bilateral neuropathy, chronic kidney disease stage III, history of chronic low back pain, patient was recently seen by Dr. Meeks and on consultation for chronic back pain. Patient had a myelogram done and Cruz, stephanie patient failed medical therapy for chronic low back pain, she had no bowel or bladder issues. Had a previous lumbar laminectomy in 1986. Lumbar fusion in 2006 and 2018. Lumbar epidural steroid injections on March 23 2020. And she underwent physical therapy in 2019 without any relief. Patient has been complaining of intermittent low back pain for the last 54 years. Pain was associated with radiculopathy to the left leg, worse with sitting or laying down and with stairs. Patient has been chronically on pain medications. Today the patient underwent L2 he revisions decompression and fusion, postoperatively she was noted to have hypotension, metabolic acidosis, estimated blood loss was 1900 mL, received 5200 MLS with Cell Saver 350 ML back. Patient is receiving more blood, she was noted to be hypotensive in spite of all the fluids given, and she was on 0.08 mcg/kg/m of norepinephrine when she arrived to the ICU. Chest x-ray was done as soon as the patient was brought into the ICU, and she had the endotracheal tube noted to be in the right position, however the patient had a large right tension pneumothorax. I was notified about this patient earlier by the surgeon, that she was being admitted to the ICU, and shortly after she arrived to the ICU was notified by the nurse taking care of the patient hence I came in to evaluate the patient, and went ahead and performed a right sided chest tube thoracostomy. Immediate relief of her tension pneumothorax was noted based on follow-up chest x-ray. And slight improvement was noted also and her blood pressure. I have also recommended treatment of her hyperkalemia, patient was acidotic, bicarb was ordered, and I also ordered calcium gluconate, and recommended repeat ABG and possibly repeat potassium in the next hour. Earlier ABG showed a pO2 of 193 pCO2 of 37 pH of 7.19 with a bicarb of 14 and her potassium was 6.4 with BUN of 37 creatinine of 1.33. Blood sugar was also noted to be elevated at 392. And considering her severe metabolic acidosis, I'm recommending that the patient goes an insulin drip. Patient was reevaluated today on 11/14/2020. Patient remains in the ICU, intubated and mechanically ventilated. She is on assist control rate of 20,000 volume is 400 FiO2 45% PEEP of 5. ABG this morning showed a pO2 of 90 pCO2 40 pH of 7.35. Chest x-ray showed catheters and tubes are in the proper positions, minimal atelectasis at the bases, no evidence of active disease, right-sided chest tube remains in the proper position and no evidence of air leak this morning noted in the pleural VAC. Labs showed relatively normal electrolytes bicarb is up to 21 BUN is 41 creatinine is 1.33. Patient remains on insulin drip at 3.5 units per hour. She is on propofol at 50 mcg/kg/m. And no major events overnight. I do plan to wake of the patient today, discontinue propofol, give the patient a weaning trial, and possibly address weaning and extubation. Patient is hemodynamically stable, she is not requiring any pressors today. Objective - Vital Signs Vital signs: Vital Signs Temp 97.5 F L 11/14/20 08:00 Pulse 87 11/14/20 09:30 Resp 23 11/14/20 09:30 BP 116/94 11/14/20 09:00 Pulse Ox 98 11/14/20 09:30 Intake & Output 11/13/20 11/14/20 11/14/20 18:59 06:59 18:59 Intake Total 3881 1563.054 68.453 Output Total 2130 445 210 Balance 1751 1118.054 -141.547 Weight 112.1 kg Intake: IV 2951 750 0.9 @ 75 mL/hr 750 Intake, IV Titration 503.054 68.453 Amount Calcium Gluconate 1 gm In 100 Sodium Chloride 0.9% 100 ml @ 100 mls/hr IVPB ONCE ONE Rx#:[id number] Insulin Regular 100 unit 71.283 16.841 In Sodium Chloride 0.9% 100 ml @ Per Protocol IV .Q0M [facility] Rx#:[id number] Lactated Ringers 1,000 ml 20 20 @ 0 mls/hr IV .STK-[facility] ONE Rx#:[id number] Norepinephrine 4 mg In 117.757 Sodium Chloride 0.9% 250 ml @ 0.05 MCG/KG/MIN 20. 326 mls/hr IV .[id number] [facility] Rx#:[id number] ceFAZolin 2 gm In Sodium 50 Chloride 0.9% 50 ml @ 100 mls/hr IVPB Q8HR [facility] Rx# :[id number] propofoL 1,000 mg In 144.014 31.612 Empty Bag 1 bag @ Titrate IV .Q0M [facility] Rx#: [id number] Blood Product 930 310 Rc As-1 Unit 310 [id number] Rc As-1 Unit 310 [id number] Rc Pheresis 2 As3 Unit 310 [id number] Rc Pheresis As-3 Unit 310 [id number] Output: Drainage 175 Right 175 Urine 630 445 35 Estimated Blood Loss 1500 Other: Voiding Method Indwelling Catheter ABP, PAP, CO, CI - Last Documented Arterial Blood Pressure 123/68 - Exam Physical Exam: Revealed a 64-year-old female on mechanical ventilation, sedat ed,, on propofol. Head: Atraumatic, normocephalic, HEENT:[Positive pallor, nonicteric, shortness neck, endotracheal tube and orogastric tubes are intact. Chest: [Good breath sounds bilaterally, symmetrical chest expansion, no crackles or rhonchi or wheezes, chest tube on the right side is noted to be intact. Cardiac Exam: Normal S1 and S2, no S3 gallop. No murmur. Abdomen: Obese, [Soft, nontender, no megaly, no rebound, no guarding, normal bowel sounds.] Extremities: [No clubbing, no edema, no cyanosis.] Neurological Exam: Could not assess, patient is sedated, on propofol which I plan to discontinue. Psychiatric: Could not assess. Skin: No cyanosis, no rashes - Labs CBC & Chem 7: 11/14/20 03:45 11/14/20 03:45 Labs: Abnormal Lab Results - Last 24 Hours (Table) 11/07/20 11/13/20 11/13/20 Range/Units 08:28 14:20 17:13 WBC 11.3 H 14.7 H (3.8-10.6) k/uL RBC 3.55 L 3.35 L (3.80-5.40) m/uL Hgb 10.4 L (11.4-16.0) gm/dL Hct 31.1 L (34.0-46.0) % Plt Count 126 L (150-450) k/uL Neutrophils # 11.8 H (1.3-7.7) k/uL ABG pH (7.35-7.45) ABG pO2 (83-108) mmHg ABG HCO3 (21-25) mmol/L ABG O2 Saturation (94-97) % Sodium (137-145) mmol/L Potassium (3.5-5.1) mmol/L Chloride (98-107) mmol/L Carbon Dioxide (22-30) mmol/L BUN (7-17) mg/dL Creatinine (0.52-1.04) mg/dL Glucose (74-99) mg/dL POC Glucose (mg/dL) (75-99) mg/dL Calcium (8.4-10.2) mg/dL AST (14-36) U/L ALT (4-34) U/L Total Protein (6.3-8.2) g/dL Albumin (3.5-5.0) g/dL Urine Ketones (Negative) Crossmatch See Detail 11/13/20 11/13/20 11/13/20 Range/Units 17:13 17:34 19:23 WBC (3.8-10.6) k/uL RBC (3.80-5.40) m/uL Hgb (11.4-16.0) gm/dL Hct (34.0-46.0) % Plt Count (150-450) k/uL Neutrophils # (1.3-7.7) k/uL ABG pH 7.19 L* (7.35-7.45) ABG pO2 193 H (83-108) mmHg ABG HCO3 14 L (21-25) mmol/L ABG O2 Saturation 99.4 H (94-97) % Sodium 132 L (137-145) mmol/L Potassium 6.4 H* (3.5-5.1) mmol/L Chloride 108 H (98-107) mmol/L Carbon Dioxide 16 L (22-30) mmol/L BUN 37 H (7-17) mg/dL Creatinine 1.33 H (0.52-1.04) mg/dL Glucose 392 H (74-99) mg/dL POC Glucose (mg/dL) 362 H (75-99) mg/dL Calcium 7.7 L (8.4-10.2) mg/dL AST (14-36) U/L ALT (4-34) U/L Total Protein (6.3-8.2) g/dL Albumin (3.5-5.0) g/dL Urine Ketones (Negative) Crossmatch 11/13/20 11/13/20 11/13/20 Range/Units 21:07 22:07 22:45 WBC (3.8-10.6) k/uL RBC (3.80-5.40) m/uL Hgb (11.4-16.0) gm/dL Hct (34.0-46.0) % Plt Count (150-450) k/uL Neutrophils # (1.3-7.7) k/uL ABG pH 7.27 L (7.35-7.45) ABG pO2 110 H (83-108) mmHg ABG HCO3 (21-25) mmol/L ABG O2 Saturation 98.2 H (94-97) % Sodium (137-145) mmol/L Potassium (3.5-5.1) mmol/L Chloride (98-107) mmol/L Carbon Dioxide (22-30) mmol/L BUN (7-17) mg/dL Creatinine (0.52-1.04) mg/dL Glucose (74-99) mg/dL POC Glucose (mg/dL) 368 H (75-99) mg/dL Calcium (8.4-10.2) mg/dL AST (14-36) U/L ALT (4-34) U/L Total Protein (6.3-8.2) g/dL Albumin (3.5-5.0) g/dL Urine Ketones Trace H (Negative) Crossmatch 11/13/20 11/14/20 11/14/20 Range/Units 22:54 00:14 01:59 WBC (3.8-10.6) k/uL RBC (3.80-5.40) m/uL Hgb (11.4-16.0) gm/dL Hct (34.0-46.0) % Plt Count (150-450) k/uL Neutrophils # (1.3-7.7) k/uL ABG pH (7.35-7.45) ABG pO2 (83-108) mmHg ABG HCO3 (21-25) mmol/L ABG O2 Saturation (94-97) % Sodium (137-145) mmol/L Potassium (3.5-5.1) mmol/L Chloride (98-107) mmol/L Carbon Dioxide (22-30) mmol/L BUN (7-17) mg/dL Creatinine (0.52-1.04) mg/dL Glucose (74-99) mg/dL POC Glucose (mg/dL) 291 H 298 H 206 H (75-99) mg/dL Calcium (8.4-10.2) mg/dL AST (14-36) U/L ALT (4-34) U/L Total Protein (6.3-8.2) g/dL Albumin (3.5-5.0) g/dL Urine Ketones (Negative) Crossmatch 11/14/20 11/14/20 11/14/20 Range/Units 03:03 03:45 03:45 WBC 15.0 H (3.8-10.6) k/uL RBC (3.80-5.40) m/uL Hgb (11.4-16.0) gm/dL Hct (34.0-46.0) % Plt Count 68 L (150-450) k/uL Neutrophils # 12.7 H (1.3-7.7) k/uL ABG pH (7.35-7.45) ABG pO2 (83-108) mmHg ABG HCO3 (21-25) mmol/L ABG O2 Saturation (94-97) % Sodium (137-145) mmol/L Potassium (3.5-5.1) mmol/L Chloride 111 H (98-107) mmol/L Carbon Dioxide 21 L (22-30) mmol/L BUN 41 H (7-17) mg/dL Creatinine 1.33 H (0.52-1.04) mg/dL Glucose 182 H (74-99) mg/dL POC Glucose (mg/dL) 208 H (75-99) mg/dL Calcium 8.3 L (8.4-10.2) mg/dL AST 189 H (14-36) U/L ALT 147 H (4-34) U/L Total Protein 4.1 L (6.3-8.2) g/dL Albumin 2.4 L (3.5-5.0) g/dL Urine Ketones (Negative) Crossmatch 11/14/20 11/14/20 11/14/20 Range/Units 04:45 04:58 06:28 WBC (3.8-10.6) k/uL RBC (3.80-5.40) m/uL Hgb (11.4-16.0) gm/dL Hct (34.0-46.0) % Plt Count (150-450) k/uL Neutrophils # (1.3-7.7) k/uL ABG pH (7.35-7.45) ABG pO2 (83-108) mmHg ABG HCO3 (21-25) mmol/L ABG O2 Saturation 97.6 H (94-97) % Sodium (137-145) mmol/L Potassium (3.5-5.1) mmol/L Chloride (98-107) mmol/L Carbon Dioxide (22-30) mmol/L BUN (7-17) mg/dL Creatinine (0.52-1.04) mg/dL Glucose (74-99) mg/dL POC Glucose (mg/dL) 158 H 171 H (75-99) mg/dL Calcium (8.4-10.2) mg/dL AST (14-36) U/L ALT (4-34) U/L Total Protein (6.3-8.2) g/dL Albumin (3.5-5.0) g/dL Urine Ketones (Negative) Crossmatch 11/14/20 11/14/20 11/14/20 Range/Units 08:02 08:20 09:08 WBC (3.8-10.6) k/uL RBC (3.80-5.40) m/uL Hgb (11.4-16.0) gm/dL Hct (34.0-46.0) % Plt Count (150-450) k/uL Neutrophils # (1.3-7.7) k/uL ABG pH (7.35-7.45) ABG pO2 (83-108) mmHg ABG HCO3 (21-25) mmol/L ABG O2 Saturation (94-97) % Sodium (137-145) mmol/L Potassium (3.5-5.1) mmol/L Chloride (98-107) mmol/L Carbon Dioxide (22-30) mmol/L BUN (7-17) mg/dL Creatinine (0.52-1.04) mg/dL Glucose (74-99) mg/dL POC Glucose (mg/dL) 164 H 161 H 206 H (75-99) mg/dL Calcium (8.4-10.2) mg/dL AST (14-36) U/L ALT (4-34) U/L Total Protein (6.3-8.2) g/dL Albumin (3.5-5.0) g/dL Urine Ketones (Negative) Crossmatch 11/14/20 Range/Units 09:40 WBC (3.8-10.6) k/uL RBC (3.80-5.40) m/uL Hgb (11.4-16.0) gm/dL Hct (34.0-46.0) % Plt Count (150-450) k/uL Neutrophils # (1.3-7.7) k/uL ABG pH (7.35-7.45) ABG pO2 (83-108) mmHg ABG HCO3 (21-25) mmol/L ABG O2 Saturation (94-97) % Sodium (137-145) mmol/L Potassium (3.5-5.1) mmol/L Chloride (98-107) mmol/L Carbon Dioxide (22-30) mmol/L BUN (7-17) mg/dL Creatinine (0.52-1.04) mg/dL Glucose (74-99) mg/dL POC Glucose (mg/dL) 184 H (75-99) mg/dL Calcium (8.4-10.2) mg/dL AST (14-36) U/L ALT (4-34) U/L Total Protein (6.3-8.2) g/dL Albumin (3.5-5.0) g/dL Urine Ketones (Negative) Crossmatch Assessment and Plan Assessment: Impression: pseudoarthrosis/lumbar spine. With chronic low back pain and left lower extremity radiculopathy and failure of multiple previous surgeries and medical therapies and physical therapy on this patient. Status post L2p revision decompression and fusion, dural erosion with dural repair, postoperative day #1. Right sided tension pneumothorax most likely secondary from earlier right IJ central line placement prior to surgery. Apparently the patient had a central line placed earlier by anesthesia. Postoperative hypotension, secondary to blood loss, patient had 1900 mL of EBL, it is also related to sedation, and also related to tension pneumothorax. Resolved this morning, patient is off pressors. History of multiple comorbidities including asthma, type 2 diabetes, dyslipidemia, degenerative joint disease, chronic kidney disease, obstructive sleep apnea syndrome, history of cardiac ablation, AICD placement, and multiple orthopedic surgeries. Recommendation: Continue ventilatory support, however I do plan to discontinue propofol, awaken the patient, check weaning parameters, and possibly extubate patient later today. Continue insulin drip. Chest x-ray was reviewed. ABG was reviewed. Labs were all reviewed. DVT and GI prophylaxis. Patient will have Venodyne boots for DVT prophylaxis. Possible weaning today. However the patient remains relatively critically ill. Critical care time is over 30 minutes. Time with Patient: Greater than 30
[2020-11-14 10:59] LABS: Glucose,Whole Blood 165 mg/dL (75-99)
[2020-11-14 12:04] LABS: Glucose,Whole Blood 156 mg/dL (75-99)
[2020-11-14] MEDS: HYDROmorphone 1 MG/ML 1 ML SYRINGE IVP PRN (13:21)
[2020-11-14 13:29] LABS: Glucose,Whole Blood 160 mg/dL (75-99)
[2020-11-14 14:49] LABS: Glucose,Whole Blood 164 mg/dL (75-99)
--- NOTE | 2020-11-14 15:56 | CT ---
EXAMINATION TYPE: CT lumbar spine wo con, CT pelvis wo con DATE OF EXAM: 11/14/2020 3:21 PM COMPARISON: CT lumbar spine March 08, 2020 HISTORY: post fusion. CT DLP: 2270 (accession [id number]), 782.2 (accession [id number]) mGycm Automated exposure control for dose reduction was used. Unenhanced CT of the lumbar spine and pelvis are performed. Bone and soft tissue window settings are submitted as well as coronal and sagittal reconstructions. There are 5 lumbar type vertebra redemonstrated. There is diffuse demineralization again seen. Persis tent artificial disc material at L3-L4 and L5-S1 levels. Metallic disc material L4-L5 level. Persiste nt severe disc space narrowing with some ossific fusion at L5-S1 level. There are no interpedicular r ods and screws running bilaterally from the L2 through the S2 levels. There is some retained left lat eral plate with L2 fixating screw redemonstrated. Alignment is stable and satisfactory. Multilevel po sterior decompression changes from L1 through L5 levels are now present. There is some ill-defined fl uid and air within the posterior soft tissues at the site of ossific decompression. Streak artifact f rom metallic hardware makes evaluation suboptimal. Cortical thinning of both kidneys is present. Mild calcified plaque in ectatic abdominal aorta noted. CT pelvis shows extension of the S2 screws through the sacroiliac joints into the bilateral iliac bon es. Sacroiliac joints are symmetric and within normal limits. Hip joints show mild axial joint space loss and moderate acetabular spurring bilaterally. Pubic symphysis is intact. A Reddy catheter decompresses bladder. Uterus is surgically absent. No free air within the pelvis or suspicious fluid collection. IMPRESSION: As above. New long Segment posterior fusion hardware from the L2 level bilaterally throu gh the S2 levels extending through the bilateral sacroiliac joints. Expected postsurgical changes pos teriorly from ossific decompression. Satisfactory and stable alignment.
[2020-11-14 16:15] LABS: Glucose,Whole Blood 156 mg/dL (75-99)
[2020-11-14] MEDS ORDERED: DILTIAZEM 125 MG in SODIUM CHLORIDE 0.9% 100 ML IV SCH (17:30)
[2020-11-14] MEDS: carvediloL 12.5 MG TAB PO SCH (17:42)
[2020-11-14 17:51] LABS: Glucose,Whole Blood 146 mg/dL (75-99)
[2020-11-14] MEDS ORDERED: DEXTROSE 5% IN WATER 100 ML with AMIODARONE 150 MG IV ONE (18:45)
[2020-11-14] MEDS ORDERED: AMIODARONE 360 MG in DEXTROSE 5% IN WATER 200 ML IV ONE ×2 (19:00)
[2020-11-14 19:04] LABS: Glucose,Whole Blood 155 mg/dL (75-99)
--- NOTE | 2020-11-14 19:28 | CONS ---
CONSULTATION This is a 64-year-old white female, status post lumbar surgery. For medical management I am her primary care physician. She is diabetic. Will continue with her diabetes Accu-Chek protocol. She is status post surgery. She had a large right tension pneumothorax which no one called me for. She was admitted to the ICU. She had right chest tube thoracostomy, treatment for her hyperkalemia. Acidotic bicarb was ordered, calcium gluconate. Repeat potassium ordered. ABGs were reviewed. Sugars are high. She is going on an insulin drip. Temperature 97.5, pulse 87, respiratory rate 18-22, blood pressure 116/94, O2 98. Cardiovascular S1, S2. Lungs with transmitted upper airway sounds. Hematology: Negative Homans. Psych: Could not assess. Neurologic: Alert and oriented x0. BUN is 41, creatinine 1.33. White count 15. ASSESSMENT: 1. Status post L2 revision decompression and fusion, dural erosion, dural repair, postoperative day 1. 2. Right-sided tension pneumothorax. 3. Postoperative hypotension secondary to acute blood loss, 19 mL estimated blood loss. Sedation. 4. Multiple comorbidities, include asthma, type 2 diabetes mellitus, dyslipidemia, degenerative joint disease, chronic kidney disease, sleep apnea, cardiac ablation, AICD, orthopedic surgeries. She is on a ventilator at this time. Discontinue propofol. Wean her off the vent if possible and continue insulin drip. Otherwise, prognosis extremely guarded. MANJEETL / JEREMYN: [id number] /
--- NOTE | 2020-11-14 20:18 | OP ---
OPERATIVE REPORT DATE OF SERVICE: 11/13/2020. PREOPERATIVE DIAGNOSES: 1. Pseudoarthrosis L3, L4 with incomplete instrumentation 2. L5-S1 likely pseudoarthrosis 3. 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 neurogenic claudication, 5. lower extremity radiculopathy and 6. lower extremity weakness. 7. DISH POSTOPERATIVE DIAGNOSES: 1. Pseudoarthrosis L3, L4 with incomplete instrumentation 2. L5-S1 likely pseudoarthrosis 3. 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 neurogenic claudication, 5. lower extremity radiculopathy and 6. lower extremity weakness. 7. DISH 8. Large dural erosion, >4 cm PROCEDURES PERFORMED: 1. Exploration of fusion, L3-4 and L5-S1 2. Removal of hardware, L3-4 and L5-S1. 3. Re-instrumentation L2 to pelvis. 4. L2 to pelvis posterior lateral instrumented fusion. 5. L4-L5 interbody fusion. 6. T12-S1 laminectomy, decompression with L3-L4 bilateral facetectomy and foraminotomy and facetectomy. 7. Dural repair with a dural patch graft. 8. Use of intraoperative navigation for placement of screws. IMPLANTS: Ruchi Grover screws, globus Sable cage 7-13 20 degree lordosis and 26 mm length, allograft, autograft and DBM. ANESTHESIA: GETA. EBL: 1900. FLUIDS: 3200. Cell Saver returned 350 mL. Urine 550. COMPLICATIONS: None. DISPOSITION: To the ICU for BP support on pressors and resuscitation recovery. INDICATIONS FOR PROCEDURE: This is a 64-year-old female who originally presented due to intractable back pain. The patient has had multiple different surgeries in the past of her low back. Her most recent surgery of which was a fusion in 2019 of L3-L4, where she had a lateral interbody fusion followed by posterior stabilization percutaneously. She previously had an L5-S1 fusion with percutaneous fixation as well. The patient continued to have fairly severe back pain after surgery. She improved slightly, however, continued to get worse. She went through a slew of conservative management, including physical therapy, injections and activity modifications, bracing of which none of this helped her. She continued to have low back pain as well as radiculopathy and lower extremity neurogenic claudication. These have been severely limiting her day-to-day functions and she has been unable to improve with any conservative measures. She did not have any bowel or bladder issues, but does complain of lower extremity weakness. We discussed at length different surgical options for the patient and at this time, she has elected for revision fusion from L2 to pelvis with decompression of this area secondary to her stenosis. The patient was seen and evaluated preoperatively. All preoperative protocols followed. The patient was seen by the department of anesthesia and deemed fit for surgery. Informed consent was obtained. Risks and benefits of the procedure were discussed including the risk of bleeding, infection, damage to surrounding tissue, risk of reoperation, risk of anesthesia up to including . She was willing to assume these risks and all the risks outlined in the risk review along with surgery. The consent was confirmed and signed. The site was marked. The patient was given a weight based dose of antibiotics as well as tranexamic acid and preoperative medications. All questions were answered. She is willing to proceed with the procedure. OPERATIVE COURSE: Patient was transferred to operative suite and was drifted off to sleep by Department of Anesthesia. General endotracheal intubation was performed. A central line as well as arterial line were performed by the Department of Anesthesia. Intraoperative neuro monitoring leads were placed by the neuro monitoring call center representative. A Reddy catheter was placed by the nursing staff atraumatically. Once all lines had been placed, the patient was ready. She was carefully transferred to a prone Nic spine frame. All bony prominences were padded accordingly. Her arms were placed in the up and out position. We paid special attention to her wrists, elbows, axilla, chest, hips, thighs, knees, ankles and feet to make sure that everything was padded appropriately and it was. Her face was padded appropriately in her face werner and eyes were void of any pressure. Once in good position. The patient's lumbar spine was identified and bio marked using AP and lateral fluoroscopy to allow us to lamar out her incision. Her previous incisions were visualized and were marked for reference as well. Once this was performed, a briefing was done of the OR staff and everyone ready to proceed. The patient's lumbar spine and thoracic spine were then prepped and draped in normal sterile fashion. Time-out was performed. All parties were in agreement with the procedure to be performed. The patient's paraspinal musculature was then infiltrated with a mixture of 1% lidocaine with epinephrine and 0.25% Marcaine without epinephrine. 30 mL was used in all. Once this was accomplished, a midline incision was made from L1 to the pelvis. This took into account for old incision at the L4-5, L5-S1 region. Electrocautery dissection was taken down with meticulous hemostasis to the thoracolumbar and lumbosacral fascia which was identified and cleaned with a Vázquez. A midline fasciotomy was made along the spinous processes and subperiosteal dissection was taken out over the lamina of L1 to the sacrum. We identified the hardware at L3 and L4 on the right-hand side and L5-S1 on the left-hand side. This was exposed entirely. We took our exposure out to the transverse processes bilaterally. These were then exposed and decorticated using a high-speed bur. We then removed the hardware at L3-4 1st and then at L4-5. Once the hardware was removed, we checked the holes and the previous pathways for screws and they were actually in decent condition. There was hypermobility however noted at the L4, L5 region secondary to not being fused in this area. We then proceeded with screw placement. A spinous process tracker was placed on L1 and an intraoperative 3D Ziehm spin was performed under sterile conditions. We did spin the top and the bottom portion of the incision as well as the pelvis to allow for visualization in these areas. We then proceeded to place screws first with a navigated bur to initiate starting point under navigation followed by the awl tap and followed by screw placement, which was measured based on the navigation. Navigation was accurate based on checkpoints tested intraoperatively and visualized. Through the first place on the left-hand side as well as the right-sided pelvic screw which was placed in an STAI orientation, we then placed the right-sided screws as well as left-sided pelvic screw using the similar technique under navigation. Once the screws were in place, AP and lateral fluoroscopy were taken to confirm their position and they were in good position. We then tested all screws. Intraoperative neuro monitoring and all screws tested appropriately above 20 milliamps. Once this was completed, we then started with our decompression. Laminectomy was performed from L2- S1. Bilateral foraminotomy as well as facetectomies complete were performed at L4-L5 and to allow for access to the disk space. This was performed with a high-speed bur and a combination of Kerrison rongeur, punches, and rongeur. Upon completing the laminectomy of L2 at the top portion, a large dural erosion was encountered. This dural erosion spanned proximally, and was not fully visualized even once the L2 lamina was removed and continued underneath the L1 and T12 lamina and so laminectomy of T12 as well as L1 was performed sparing the facet joints to use spare stability. This revealed a large left-sided dural erosion that traveled between the T12 roots to the L1 root which was eroded through by the lamina of T12, caudally and cranially of L1. Rootlets were essentially growing into the lamina of T12 and L1. The erosion itself was approximately 8 cm x 4 cm. At this point, due to the large erosion that was present, we did encounter a reasonable amount of blood loss and the patient was started on transfusion as well as Cell Saver. We then attempted to repair this primarily. However, due to the tautness of it in the middle and being an essentially erosion, the patch graft was selected. We were able to primary close the top and the bottom of the dura without undue tension and then a patch graft was sewn into place over the eroded area of the dura. This was done in a baseball stitch type fashion for watertight closure. Once this was completed, we did perform a Valsalva. There was no CSF leak at this time, however, to back this up a fat graft was then taken and was sewn into place over this patch graft. Once this was completed, another Valsalva was performed and there was no CSF leak that was noted. The dura was re-expanding at this point as well. Once this was stabilized and completed, we then turned our attention back to interbody placement at L4-L5. We used osteotome to first perform an osteotomy posteriorly of the 1st and 2nd column which allowed for entrance into this area. We carefully protected the exiting nerve root as well as the dura during this performance. We then performed diskectomy in this area, removing disk with a combination of yahaira, curettes, Kerrison rongeur, and pituitary. Once the disk material had been cleared, endplates were scraped to allow for good bony surface. We then selected a cage and impacted the cage into place under lateral fluoroscopy atraumatically while protecting the nerve roots adequately. Once the cage was in place, it was expanded to meet the endplates. We then backfilled the cage with DBM Bio-4 and autograft. The letter stamping machine operator was removed and the cage was stable and in good position on AP and lateral fluoroscopy. We then selected rods and bent rods appropriately. These rods were then placed within the screw heads and reduced using reducers. Set screws were then placed and were final tightened into position. Once all screws were final-tightened, we did take AP and lateral fluoroscopy again to confirm good placement of rods and screws as well as good alignment. We then copiously irrigated the wound throughout the case as well as at this point with antibiotic saline solution 3 L followed by 3 L of normal sterile saline followed by a minimal amount of Irricept and some more sterile saline. We then placed crosslinks and final tightened into place. We then placed Surgicel over the dura and over the patch graft and fat graft. We then placed Tisseel over the patch graft and fat graft glued into place. We then placed in the posterior lateral gutters a mixture of DBM bile for autograft and allograft. This was impacted into the posterior lateral gutters which had been decorticated previously as well as the sacral ala and sacroiliac region. We then placed drains deep to the fascia. The drains will be placed on gravity suction and are simply there to prevent hematoma. We then proceeded with closure. #1 Vicryl was used in a simple fashion within the thoracolumbar and lumbosacral fascia for watertight closure. This was then oversewn with a unidirectional strata fix. We then placed 0 Vicryl into the subcu tissue followed by 2-0 Vicryl on the superficial subcu tissue, 2-0 nylon was then used to approximate the skin edges in a horizontal mattress fashion. The drains in the superficial region as well as deep were then sewn in with nylon. The wound was then cleaned with alcohol and sterilely dressed with an Aquacel dressing as well as drain sponges and Tegaderm. The patient was then transferred off the spine table onto her bed. She had received 3 units intraoperatively and was being resuscitated, it was at this point, we decided that she needed to go to ICU after the case for blood pressure monitoring issues requiring pressors. She was then transferred to the ICU in stable condition. This case to the 100% longer than expected secondary to the patient's comorbid conditions, her BMI as well as spinal pathology, revision case and comorbid conditions (modifier 22). MMODL / IJN: [id number] / MTDTico
[2020-11-14 20:32] LABS: Glucose,Whole Blood 155 mg/dL (75-99)
[2020-11-14 21:55] LABS: Glucose,Whole Blood 160 mg/dL (75-99)
[2020-11-14 23:17] LABS: Glucose,Whole Blood 149 mg/dL (75-99)
[2020-11-15] MEDS: AMIODARONE 450 MG in DEXTROSE 5% IN WATER 250 ML IV SCH ×4 (00:52→17:34)
[2020-11-15] MEDS: ACETAMINOPHEN TAB 500 MG TAB PO SCH ×4 (00:54→17:50)
[2020-11-15 01:02] LABS: Glucose,Whole Blood 160 mg/dL (75-99)
[2020-11-15 01:56] LABS: Glucose,Whole Blood 163 mg/dL (75-99)
[2020-11-15] MEDS: HYDROmorphone 0.5 MG/0.5 ML SYRINGE IVP PRN (02:40)
[2020-11-15 03:02] LABS: Glucose,Whole Blood 168 mg/dL (75-99)
[2020-11-15] MEDS: LACTATED RINGERS 1,000 ML IV SCH (03:02)
[2020-11-15] MEDS: NOREPINEPHRINE 4 MG in SODIUM CHLORIDE 0.9% 250 ML IV SCH (03:02)
[2020-11-15 04:09] LABS: Glucose,Whole Blood 167 mg/dL (75-99)
[2020-11-15 04:56] LABS: Anisocytosis Slight; Basophils % (A) 0 %; Eosinophils % (A) 0 %; HCT 28.3 % (34.0-46.0); Lymphocytes # (A) 0.9 k/uL (1.0-4.8); Lymphocytes % (A) 7 %; MCH 31.3 pg (25.0-35.0); MCHC 35.4 g/dL (31.0-37.0); MCV 88.5 fL (80.0-100.0); Mean Platelet Volume 8.8; Monocytes # (A) 0.7 k/uL (0-1.0); Monocytes % (A) 6 %; Neutrophils # (A) 10.3 k/uL (1.3-7.7); Neutrophils % (A) 85 %; Poikilocytosis Slight; RBC 3.19 m/uL (3.80-5.40); RDW 16.3 % (11.5-15.5); WBC 12.2 k/uL (3.8-10.6)
[2020-11-15 05:01] LABS: Platelet Count 68 k/uL (150-450)
[2020-11-15 05:14] LABS: Glucose,Whole Blood 156 mg/dL (75-99)
[2020-11-15 05:18] LABS: Albumin 2.2 g/dL (3.5-5.0); Potassium 3.9 mmol/L (3.5-5.1); Total Bilirubin 0.4 mg/dL (0.2-1.3); Total Protein 3.9 g/dL (6.3-8.2)
[2020-11-15 06:24] LABS: Glucose,Whole Blood 175 mg/dL (75-99)
[2020-11-15] MEDS: carvediloL 12.5 MG TAB PO SCH ×2 (06:28→17:34)
[2020-11-15 07:44] LABS: Glucose,Whole Blood 166 mg/dL (75-99)
[2020-11-15] MEDS ORDERED: Potassium Replacement Protocol 1 EACH MISC MISCELLANE PRN (08:14)
--- NOTE | 2020-11-15 08:16 | P.PN ---
Subjective Progress Note Date: 11/15/20 Principal diagnosis: Pseudoarthrosis Pt s/e this AM. She has been extubated and is doing fairly well this AM. Her HOB is 10 deg and she awakens to verbal stimuli and answers questions appropriately. She is still sleepy, but overall seems to be doing well. Her VSS at this time. She follows commands well and states no issues at this time. States her pain is controlled. When prompted states a minor CHRISTOPHER but no nausea, blurred or double vision or dizziness. She states no pain or numbness in her legs. States no f/c/sob/cp at this time. Objective - Vital Signs Vital signs: Vital Signs Temp 97.8 F 11/15/20 04:00 Pulse 75 11/15/20 07:30 Resp 18 11/15/20 07:30 BP 125/61 11/15/20 07:30 Pulse Ox 97 11/15/20 07:30 Intake & Output 11/14/20 11/15/20 11/15/20 18:59 06:59 18:59 Intake Total 679.559 493.300 29.533 Output Total 965 740 40 Balance -285.441 -246.700 -10.467 Weight 110.6 kg Intake: IV 27 3 A-Line 27 3 Intake, IV Titration 539.559 466.300 26.533 Amount Amiodarone 360 mg In 33.3 Dextrose 5% in Water 200 ml @ 1 MG/MIN 33.333 mls/ hr IV .Q6H ONE Rx#: [id number] Dextrose 5% in Water 100 100 ml @ 618 mls/hr IV .Q10M ONE with Amiodarone 150 mg Rx#:[id number] Insulin Regular 100 unit 48.216 43.000 6.533 In Sodium Chloride 0.9% 100 ml @ Per Protocol IV .Q0M BIN Rx#:[id number] Lactated Ringers 1,000 ml 20 @ 0 mls/hr IV .STK-MED ONE Rx#:[id number] Lactated Ringers 1,000 ml 220 240 20 @ 20 mls/hr IV .Q24H BIN Rx#:[id number] ceFAZolin 2 gm In Sodium 100 50 Chloride 0.9% 50 ml @ 100 mls/hr IVPB Q8HR BIN Rx# :[id number] propofoL 1,000 mg In 151.343 Empty Bag 1 bag @ Titrate IV .Q0M [facility] Rx#: [id number] Oral 100 Other 40 Output: Chest Tube Drainage 0 rt pleural 0 Gastric Drainage 150 Drainage 375 180 Left 20 30 Right 355 150 Urine 440 560 40 Other: Voiding Method Indwelling Catheter Indwelling Catheter ABP, PAP, CO, CI - Last Documented Arterial Blood Pressure 132/58 - Exam Patient is alert and oriented 3 appears well-nourished well-hydrated is in no acute distress. They does not appear septic. On exam the patient has minor tenderness to palpation around the incision site the dressing is clean and dry at this time. Drains on either side R in place the deep drain on the right-hand side had 130 out since yesterday of serosanguineous sanguinous discharge no clear discharge the left superficial drain had 0. Lower extremities with 4+ out of 5 strength in all major muscle groups. She is able to wiggle her toes pump her ankles up and down and lift her legs out of the bed under her own power at this time he has good strength through being in bed and laying flat Upper extremities show 5/5 strength in all major muscle groups. There is FROM that is painless of the b/l UE and LE in all major joints. They are intact to light touch sensation in L2 to S1 nerve distribution. Patient has palpable dorsalis pedis was posterior tibial pulses. Compartments are soft and compressible. Patient shows a negative Homans, Miguel's, negative Babinski's negative clonus bilaterally. negative straight leg raise bilaterally. No tensioning signs. Cranial nerves II through XII are grossly intact. - Constitutional General appearance: Present: cooperative, morbidly obese - EENT Eyes: Present: EOMI, PERRLA - Cardiovascular Rhythm: regular - Gastrointestinal General gastrointestinal: Present: soft - Genitourinary Genitourinary Comment(s): Bill catheter in place - Integumentary Integumentary: Present: normal - Neurologic Neurologic: Present: CNII-XII intact - Psychiatric Psychiatric: Present: A&O x's 3 - Allied health notes Allied health notes reviewed: nursing - Labs CBC & Chem 7: 11/15/20 04:10 11/15/20 04:10 Labs: Abnormal Lab Results - Last 24 Hours (Table) 11/07/20 11/14/20 11/14/20 Range/Units 08:28 08:02 08:20 WBC (3.8-10.6) k/uL RBC (3.80-5.40) m/uL Hgb (11.4-16.0) gm/dL Hct (34.0-46.0) % RDW (11.5-15.5) % Plt Count (150-450) k/uL Neutrophils # (1.3-7.7) k/uL Lymphocytes # (1.0-4.8) k/uL Chloride (98-107) mmol/L BUN (7-17) mg/dL Creatinine (0.52-1.04) mg/dL Glucose (74-99) mg/dL POC Glucose (mg/dL) 164 H 161 H (75-99) mg/dL Calcium (8.4-10.2) mg/dL AST (14-36) U/L ALT (4-34) U/L Total Protein (6.3-8.2) g/dL Albumin (3.5-5.0) g/dL Crossmatch See Detail 11/14/20 11/14/20 11/14/20 Range/Units 09:08 09:40 10:58 WBC (3.8-10.6) k/uL RBC (3.80-5.40) m/uL Hgb (11.4-16.0) gm/dL Hct (34.0-46.0) % RDW (11.5-15.5) % Plt Count (150-450) k/uL Neutrophils # (1.3-7.7) k/uL Lymphocytes # (1.0-4.8) k/uL Chloride (98-107) mmol/L BUN (7-17) mg/dL Creatinine (0.52-1.04) mg/dL Glucose (74-99) mg/dL POC Glucose (mg/dL) 206 H 184 H 165 H (75-99) mg/dL Calcium (8.4-10.2) mg/dL AST (14-36) U/L ALT (4-34) U/L Total Protein (6.3-8.2) g/dL Albumin (3.5-5.0) g/dL Crossmatch 11/14/20 11/14/20 11/14/20 Range/Units 12:03 13:27 14:47 WBC (3.8-10.6) k/uL RBC (3.80-5.40) m/uL Hgb (11.4-16.0) gm/dL Hct (34.0-46.0) % RDW (11.5-15.5) % Plt Count (150-450) k/uL Neutrophils # (1.3-7.7) k/uL Lymphocytes # (1.0-4.8) k/uL Chloride (98-107) mmol/L BUN (7-17) mg/dL Creatinine (0.52-1.04) mg/dL Glucose (74-99) mg/dL POC Glucose (mg/dL) 156 H 160 H 164 H (75-99) mg/dL Calcium (8.4-10.2) mg/dL AST (14-36) U/L ALT (4-34) U/L Total Protein (6.3-8.2) g/dL Albumin (3.5-5.0) g/dL Crossmatch 11/14/20 11/14/20 11/14/20 Range/Units 16:13 17:49 19:02 WBC (3.8-10.6) k/uL RBC (3.80-5.40) m/uL Hgb (11.4-16.0) gm/dL Hct (34.0-46.0) % RDW (11.5-15.5) % Plt Count (150-450) k/uL Neutrophils # (1.3-7.7) k/uL Lymphocytes # (1.0-4.8) k/uL Chloride (98-107) mmol/L BUN (7-17) mg/dL Creatinine (0.52-1.04) mg/dL Glucose (74-99) mg/dL POC Glucose (mg/dL) 156 H 146 H 155 H (75-99) mg/dL Calcium (8.4-10.2) mg/dL AST (14-36) U/L ALT (4-34) U/L Total Protein (6.3-8.2) g/dL Albumin (3.5-5.0) g/dL Crossmatch 11/14/20 11/14/20 11/14/20 Range/Units 20:31 21:54 23:16 WBC (3.8-10.6) k/uL RBC (3.80-5.40) m/uL Hgb (11.4-16.0) gm/dL Hct (34.0-46.0) % RDW (11.5-15.5) % Plt Count (150-450) k/uL Neutrophils # (1.3-7.7) k/uL Lymphocytes # (1.0-4.8) k/uL Chloride (98-107) mmol/L BUN (7-17) mg/dL Creatinine (0.52-1.04) mg/dL Glucose (74-99) mg/dL POC Glucose (mg/dL) 155 H 160 H 149 H (75-99) mg/dL Calcium (8.4-10.2) mg/dL AST (14-36) U/L ALT (4-34) U/L Total Protein (6.3-8.2) g/dL Albumin (3.5-5.0) g/dL Crossmatch 11/15/20 11/15/20 11/15/20 Range/Units 01:00 01:54 03:00 WBC (3.8-10.6) k/uL RBC (3.80-5.40) m/uL Hgb (11.4-16.0) gm/dL Hct (34.0-46.0) % RDW (11.5-15.5) % Plt Count (150-450) k/uL Neutrophils # (1.3-7.7) k/uL Lymphocytes # (1.0-4.8) k/uL Chloride (98-107) mmol/L BUN (7-17) mg/dL Creatinine (0.52-1.04) mg/dL Glucose (74-99) mg/dL POC Glucose (mg/dL) 160 H 163 H 168 H (75-99) mg/dL Calcium (8.4-10.2) mg/dL AST (14-36) U/L ALT (4-34) U/L Total Protein (6.3-8.2) g/dL Albumin (3.5-5.0) g/dL Crossmatch 11/15/20 11/15/20 11/15/20 Range/Units 04:06 04:10 04:10 WBC 12.2 H (3.8-10.6) k/uL RBC 3.19 L (3.80-5.40) m/uL Hgb 10.0 L D (11.4-16.0) gm/dL Hct 28.3 L (34.0-46.0) % RDW 16.3 H (11.5-15.5) % Plt Count 68 L (150-450) k/uL Neutrophils # 10.3 H (1.3-7.7) k/uL Lymphocytes # 0.9 L (1.0-4.8) k/uL Chloride 109 H (98-107) mmol/L BUN 47 H (7-17) mg/dL Creatinine 1.45 H (0.52-1.04) mg/dL Glucose 156 H (74-99) mg/dL POC Glucose (mg/dL) 167 H (75-99) mg/dL Calcium 8.0 L (8.4-10.2) mg/dL AST 141 H (14-36) U/L ALT 72 H (4-34) U/L Total Protein 3.9 L (6.3-8.2) g/dL Albumin 2.2 L (3.5-5.0) g/dL Crossmatch 11/15/20 11/15/20 11/15/20 Range/Units 05:13 06:22 07:42 WBC (3.8-10.6) k/uL RBC (3.80-5.40) m/uL Hgb (11.4-16.0) gm/dL Hct (34.0-46.0) % RDW (11.5-15.5) % Plt Count (150-450) k/uL Neutrophils # (1.3-7.7) k/uL Lymphocytes # (1.0-4.8) k/uL Chloride (98-107) mmol/L BUN (7-17) mg/dL Creatinine (0.52-1.04) mg/dL Glucose (74-99) mg/dL POC Glucose (mg/dL) 156 H 175 H 166 H (75-99) mg/dL Calcium (8.4-10.2) mg/dL AST (14-36) U/L ALT (4-34) U/L Total Protein (6.3-8.2) g/dL Albumin (3.5-5.0) g/dL Crossmatch - Imaging and Cardiology Computed tomography scan is reviewed of the lumbar spine and pelvis hardware is in good position. Alignment maintained screws were all in safe position interbody spacer placement L4-L5 in good position. Bone graft noted decompression noted no large fluid collections that can be visualized posteriorly drains in place. Assessment and Plan Assessment: 64-year-old female postop day 2 L2 to pelvis fusion with T12 to S1 decompression, dural erosion and repair with right-sided tension pneumothorax status post chest tube placement 1. Status post multiple lumbar surgeries with low back pain and lower extremity weakness 2. Pseudoarthrosis L3-S1, incomplete instrumentation 3. Low back pain, LE radiculopathy 4. Neurogenic claudication 5. L3-S1 stenosis 6. Mechanical back pain Plan: -Appreciate business continuity consultant and team management. Appreciate ICU management -Continue with ICU team management for chest tube -Trend labs transfuse for vital signs as necessary -Activity: Gradual head of bed elevation 5-10/h monitoring for signs of dizziness headache blurred vision. If any of these are visualized the patient needs to be laid flat again and the physician contacted. -Daily PT/OT, increase ambulation strength and balance. -No braces needed at this time, we will obtain an T LSO brace for her during her stay -Pain control: Adequate at this time -Meds: reviewed, continue with antibiotics -GI ppx: senna, Miralax -DC bill when up and about, bedside commode if needed -DVT PPX: Heparin twice a day -Hygiene: Log roll every 2-3 hours, maintaining good hygiene and clean buttocks and perineal region -Drains: Maintain for now. Record output -Encourage IS 10x/hr -Dispo: Pending
--- NOTE | 2020-11-15 08:21 | XR ---
EXAMINATION TYPE: XR chest 1V portable DATE OF EXAM: 11/15/2020 COMPARISON: Chest x-ray 11/14/2020 HISTORY: Congestion, abnormal chest x-ray, extubated TECHNIQUE: Single frontal view of the chest is obtained. FINDINGS: There is been interval removal of the endotracheal tube, NG tube. Right jugular central ve nous catheter, intracardiac defibrillator leads are stable. Cardiac mediastinal silhouette shows prob able cardiac enlargement although the patient is rotated. There is no evident pneumothorax or pleural effusion. Retrocardiac density persists, perihilar density suspected on the right. Exam is expirator y, right hemidiaphragm remains elevated. IMPRESSION: Interval extubation, correlate for atelectasis versus edema or pneumonia. Cardiomegaly.
[2020-11-15] MEDS ORDERED: POTASSIUM CHLORIDE ER 20 MEQ TAB.ER PO SCH (09:00)
[2020-11-15 09:16] LABS: Glucose,Whole Blood 146 mg/dL (75-99)
[2020-11-15 10:09] LABS: Glucose,Whole Blood 159 mg/dL (75-99)
[2020-11-15] MEDS: PANTOPRAZOLE 40 MG/10 ML VIAL IVP SCH (10:15)
[2020-11-15] MEDS: traMADol 50 MG TAB PO SCH ×2 (10:28→21:15)
--- NOTE | 2020-11-15 10:55 | P.CRDCN ---
History of Present Illness History of present illness: HISTORY OF PRESENTING ILLNESS This is a pleasant 64-year-old female past medical history significant for nonischemic cardiomyopathy status post AICD with recent upgrade September 2020, chronic systolic heart failure, hypertension, diabetes mellitus, asthma, dyslipidemia and multiple surgeries. She follows in the office with Dr. Ling. We have been asked to see in consultation for new onset atrial fibrillation. She underwent L2-P revision, decompression and fusion. Postoperatively she became hypotensive with an estimated blood loss of 1.9 L. She was given fluids however she continued to be hypotensive and required norepinephrine. She was transferred to the intensive care unit. Initial chest xray on arrival to ICU showed a tension pneumothorax. Dr. Desouza placed a chest tube. Last night while in the ICU she went into afib with RVR. She was started on an amiodarone infus ion. She has since converted to sinus rhythm. She is seen and examined laying flat in bed in no acute distress. She continues to have low back pain. She denies chest pain, shortness of breath, dizziness or palpitations. She did not feel palpitations last night while in afib. Repeat chest xray today reveals atelectasis vs edema vs pneumonia. Laboratory data reviewed, WBC 12.2, hgb 10, plt 68 sodium 139, potassium 3.9, creatinine 1.45. Currently maintained on aldactone 12.5 mg daily, lasix 10 mg daily, aspirin 81 mg daily, atorvastatin 20 mg daily and coreg 12.5 mg BID. Most recent echocardiogram obtained 05/2019 revealed severely impaired LV systolic function with ejection fraction 20-25% with global LV hypokinesia noted. REVIEW OF SYSTEMS At the time of my exam: CONSTITUTIONAL: Denies fever or chills. CARDIOVASCULAR: Denies chest pain, shortness of breath, orthopnea, PND or palpitations. RESPIRATORY: Denies cough. GASTROINTESTINAL: Denies abdominal pain, diarrhea, constipation, nausea or vomiting. MUSCULOSKELETAL: Complains of lumbar back pain. NEUROLOGIC: Denies numbness, tingling, headache or weakness. ENDOCRINE: Denies fatigue, weight change, polydipsia or polyurina. GENITOURINARY: Denies burning, hematuria or urgency with micturation. HEMATOLOGIC: Denies history of anemia or bleeding. PHYSICAL EXAMINATION Blood pressure 118/47 heart rate 70 afebrile and maintaining oxygen saturation on nasal cannula. CONSTITUTIONAL: No apparent distress. HEENT: Head is normocephalic. Pupils are equal, round. Sclerae anicteric. Mucous membranes of the mouth are moist. No JVD. No carotid bruit. CHEST EXAMINATION: Lungs are clear to auscultation. No chest wall tenderness is noted on palpation or with deep breathing. HEART EXAMINATION: Regular rate and rhythm. S1, S2 heard. No murmurs, gallops or rub. ABDOMEN: Soft, nontender. EXTREMITIES: 2+ peripheral pulses, no lower extremity edema and no calf tenderness. NEUROLOGIC EXAMINATION: Patient is awake, alert and oriented x3. ASSESSMENT New onset paroxysmal atrial fibrillation with rapid ventricular rate Status post L2-p revision, decompression, fusion with a dural erosion and repair Thrombocytopenia Nonischemic cardiomyopathy status post AICD Chronic systolic heart failure, clinically euvolemic Hypertension Diabetes mellitus Dyslipidemia Chronic kidney disease PLAN Continue amiodarone infusion as previously ordered. We will not initiate by mouth at this time unless she has further episodes of atrial fibrillation. No plans for oral anticoagulation at this time given her post surgical state as well as thrombocytopenia. Continue to monitor on telemetry. Check magnesium and TSH. No need to repeat echo, she has known severe cardiomyopathy and it will not change her management. Thank you kindly for this consultation. Nurse Practitioner note has been reviewed, I agree with a documented findings and plan of care. Patient was seen and examined. Past Medical History Past Medical History: Asthma, Diabetes Mellitus, GERD/Reflux, Hyperlipidemia, Musculoskeletal Disorder, Osteoarthritis (OA), Pneumonia, Renal Disease, Sleep Apnea/CPAP/BIPAP, Vascular Disorder Additional Past Medical History / Comment(s): Neuropathy bilateral hands/legs/feet, Chronic Kidney Disease Stage III, hx kidney stones, UTI/septic due to lodged kidney stone, BIPAP use, hx bronchitis, orthostatic hypotension, vertigo, chronic low back pain/DDD, Scoliosis, bilateral carpal tunnel syndrome, bilateral varicosities, migraines, hx gout, hx anemia(from nicked vein in left kidney after surgery for kidney stone), "embolism in my chest", followed by Dr Grijalva. History of Any Multi-Drug Resistant Organisms: None Reported Past Surgical History: AICD, Appendectomy, Back Surgery, Cardiac Ablation, Section, Cholecystectomy, Heart Catheterization, Hysterectomy, Joint Replacement, Orthopedic Surgery, Pacemaker Additional Past Surgical History / Comment(s): Bilateral knee arthroscopy, bilat eral total knee replacements, pain clinic procedures, D&C, colonoscopy, bilateral leg varicose vein surgery, lithotripsies, surgical removal of stones, Myelogram([place]) 2018, Lumbar fusion L3-4, lumbar puncture for headaches 2019 (had spinal headache post), laminectomy, bakers cyst removed from right knee, bilateral cataract surgery. Past Anesthesia/Blood Transfusion Reactions: No Reported Reaction Additional Past Anesthesia/Blood Transfusion Reaction / Comment(s): Pt has received blood without reaction. Type of Cardiac Device: Permanent Pacemaker, AICD Device Placement Date:: 09/10/20 Past Psychological History: Anxiety, Depression Smoking Status: Never smoker Past Alcohol Use History: None Reported Past Drug Use History: None Reported - Past Family History Father Family Medical History: Cancer Additional Family Medical History / Comment(s): Stomach cancer. Brother(s) Family Medical History: Cancer Additional Family Medical History / Comment(s): Lung cancer. Sister(s) Family Medical History: Cancer Additional Family Medical History / Comment(s): Sister had stomach/colon/part of pancreas cancers. Mother Family Medical History: Cancer Additional Family Medical History / Comment(s): Ovarian and cervical cancer. Medications and Allergies Home Medications Medication Instructions Recorded Confirmed Type Aspirin EC [Ecotrin Low Dose] 81 mg PO HS 11/02/18 11/13/20 History Montelukast [Singulair] 10 mg PO HS 11/02/18 11/13/20 History Spironolactone [Aldactone] 12.5 mg PO DAILY 11/02/18 11/13/20 History Atorvastatin [Lipitor] 20 mg PO HS 09/05/19 11/13/20 History Carvedilol [Coreg] 12.5 mg PO BID 09/05/19 11/13/20 History Iron 28mg 28 mg PO DAILY 09/05/19 11/13/20 History Meclizine [Antivert] 12.5 mg PO Q12H PRN 09/05/19 11/13/20 History Topiramate [Topamax] 50 mg PO HS 09/05/19 11/13/20 History tiZANidine [Zanaflex] 4 mg PO HS 09/05/19 11/13/20 History Furosemide [Lasix] 10 mg PO DAILY 12/06/19 11/13/20 History calcitrioL [Rocaltrol] 0.25 mcg PO NORRIS 12/06/19 11/13/20 History Budesonide [Pulmicort Flexhaler] 2 puff INHALATION RT-BID 02/09/20 11/13/20 History Cyclobenzaprine [Flexeril] 5 mg PO BID PRN 02/09/20 11/13/20 History Docusate [Colace] 100 mg PO Q48H 02/09/20 11/13/20 History Ergocalciferol [Vitamin D2 50,000 unit PO Q28D 02/09/20 11/13/20 History (DRISDOL)] Insulin Glargine,Hum.rec.anlog 40 unit SQ HS 02/09/20 11/13/20 History [Lantus Solostar Pen] Insulin Lispro [humaLOG Kwikpen] 15 unit SQ TID-W/MEALS 02/09/20 11/13/20 History Magnesium Oxide [Shaikh] 1,500 mg PO HS 02/09/20 11/13/20 History Midodrine [ProAmatine] 5 mg PO TID 02/09/20 11/13/20 History Albuterol Sulfate [Ventolin HFA] 2 puff INHALATION QID PRN 04/20/20 11/13/20 History traMADol HCL 50 mg PO Q12HR PRN 04/20/20 11/13/20 History Dupilumab [Dupixent Syringe] 300 mg SQ Q14D 07/25/20 11/13/20 History HYDROcodone/APAP 10-325MG [[place] 1 tab PO Q6HR PRN 09/06/20 11/13/20 History 10-325] Allergies Allergy/AdvReac Type Severity Reaction Status Date / Time No Known Allergies Allergy Verified 11/13/20 06:42 Physical Exam Vitals: Vital Signs Temp Pulse Resp BP Pulse Ox 11/15/20 09:30 17 112/58 98 11/15/20 09:09 97 11/15/20 09:00 98.4 F 61 17 111/60 97 11/15/20 08:30 70 18 111/60 97 11/15/20 08:00 98.4 F 69 16 125/61 97 11/15/20 07:30 75 18 125/61 97 11/15/20 07:00 65 19 121/53 96 11/15/20 06:30 66 11 L 121/53 96 11/15/20 06:00 70 16 97 11/15/20 05:30 73 18 119/62 97 11/15/20 05:00 70 12 111/60 98 11/15/20 04:30 71 12 111/60 98 11/15/20 04:00 97.8 F 69 15 98 11/15/20 03:30 72 15 108/66 98 11/15/20 03:00 76 14 100/56 95 11/15/20 02:30 80 12 98 11/15/20 02:00 75 19 116/60 11/15/20 01:30 81 19 11/15/20 01:00 79 20 11/15/20 00:30 84 22 115/58 11/15/20 00:00 97.8 F 80 24 98 11/14/20 23:30 81 14 112/64 97 11/14/20 23:00 83 14 112/64 95 11/14/20 22:30 76 21 97 11/14/20 22:00 80 19 110/52 99 11/14/20 21:30 79 16 99 11/14/20 21:00 78 14 108/65 98 11/14/20 20:43 98 11/14/20 20:30 82 11 L 108/65 96 11/14/20 20:00 97.6 F 78 14 120/66 96 11/14/20 19:30 78 12 96 11/14/20 19:00 90 16 130/72 96 11/14/20 18:30 90 16 98 11/14/20 18:00 88 16 133/74 98 11/14/20 17:30 93 17 97 11/14/20 17:00 93 15 125/75 97 11/14/20 16:30 90 18 99 11/14/20 16:00 97.9 F 88 16 100 11/14/20 15:30 95 16 99 11/14/20 14:30 94 16 97 11/14/20 14:00 92 18 120/77 98 11/14/20 13:30 90 18 99 11/14/20 13:00 84 20 131/79 98 11/14/20 12:30 74 20 97 11/14/20 12:00 79 22 123/73 97 11/14/20 11:30 79 21 99 11/14/20 11:00 87 25 H 119/73 97 11/14/20 10:30 88 24 98 Intake and Output 11/14/20 11/15/20 11/15/20 22:59 06:59 14:59 Intake Total 480.117 263.250 55.666 Output Total 545 435 85 Balance -64.883 -171.750 -29.334 Intake: IV 3 24 3 A-Line 3 24 3 Intake, IV Titration 377.117 239.250 52.666 Amount Amiodarone 360 mg In 33.3 Dextrose 5% in Water 200 ml @ 1 MG/MIN 33.333 mls/ hr IV .Q6H ONE Rx#: [id number] Dextrose 5% in Water 100 100 ml @ 618 mls/hr IV .Q10M ONE with Amiodarone 150 mg Rx#:[id number] Insulin Regular 100 unit 33.817 29.250 12.666 In Sodium Chloride 0.9% 100 ml @ Per Protocol IV .Q0M [facility] Rx#:[id number] Lactated Ringers 1,000 ml 160 160 40 @ 20 mls/hr IV .Q24H [facility] Rx#:[id number] ceFAZolin 2 gm In Sodium 50 50 Chloride 0.9% 50 ml @ 100 mls/hr IVPB Q8HR [facility] Rx# :[id number] Oral 100 Output: Chest Tube Drainage 0 rt pleural 0 Drainage 135 105 Left 35 15 Right 100 90 Urine 410 330 85 Other: Voiding Method Indwelling Catheter Indwelling Catheter Indwelling Catheter Weight 110.6 kg ABP, PAP, CO, CI - Last 8 Hours Arterial Blood Pressure 115/50 Arterial Blood Pressure 119/53 Arterial Blood Pressure 122/52 Arterial Blood Pressure 125/53 Arterial Blood Pressure 132/58 Arterial Blood Pressure 131/56 Arterial Blood Pressure 125/57 Arterial Blood Pressure 126/53 Arterial Blood Pressure 126/54 Arterial Blood Pressure 130/51 Arterial Blood Pressure 123/52 Arterial Blood Pressure 122/52 Arterial Blood Pressure 119/50 Arterial Blood Pressure 119/48 Arterial Blood Pressure 129/56 Results 11/15/20 04:10 11/15/20 04:10 Cardiac Enzymes 11/15/20 Range/Units 04:10 AST 141 H (14-36) U/L CBC 11/15/20 Range/Units 04:10 WBC 12.2 H (3.8-10.6) k/uL RBC 3.19 L (3.80-5.40) m/uL Hgb 10.0 L D (11.4-16.0) gm/dL Hct 28.3 L (34.0-46.0) % Plt Count 68 L (150-450) k/uL Comprehensive Metabolic Panel 11/15/20 Range/Units 04:10 Sodium 139 (137-145) mmol/L Potassium 3.9 (3.5-5.1) mmol/L Chloride 109 H (98-107) mmol/L Carbon Dioxide 24 (22-30) mmol/L BUN 47 H (7-17) mg/dL Creatinine 1.45 H (0.52-1.04) mg/dL Glucose 156 H (74-99) mg/dL Calcium 8.0 L (8.4-10.2) mg/dL AST 141 H (14-36) U/L ALT 72 H (4-34) U/L Alkaline Phosphatase 72 (38-126) U/L Total Protein 3.9 L (6.3-8.2) g/dL Albumin 2.2 L (3.5-5.0) g/dL Current Medications Generic Name Dose Route Start Last Admin Trade Name Freq PRN Reason Stop Dose Admin Acetaminophen 1,000 mg 11/14/20 00:00 11/15/20 06:28 Acetaminophen Tab 500 Mg Tab PO 12/14/20 00:01 1,000 mg Q6HR BIN Administration Bisacodyl 10 mg 11/13/20 19:14 Bisacodyl 10 Mg Supp RECTAL 12/13/20 19:15 DAILY PRN Constipation Carvedilol 12.5 mg 11/14/20 17:45 11/15/20 06:28 Carvedilol 12.5 Mg Tab PO 12.5 mg BID-W/MEALS BIN Administration Cyclobenzaprine HCl 5 mg 11/13/20 19:14 Cyclobenzaprine 5 Mg Tab PO 12/13/20 21:01 BID PRN Muscle Spasm Hydromorphone HCl 0.5 mg 11/13/20 19:14 11/15/20 02:40 Hydromorphone 0.5 Mg/0.5 Ml Syringe IVP 12/13/20 19:15 0.5 mg Q3HR PRN Administration Pain Scale 4 - 6 Hydromorphone HCl 1 mg 11/13/20 19:14 11/14/20 13:21 Hydromorphone 1 Mg/Ml 1 Ml Syringe IVP 12/13/20 19:15 1 mg Q3HR PRN Administration Pain Scale of 7 - 10 Lactated Ringer's 1,000 mls @ 50 mls/hr 11/13/20 05:43 11/15/20 03:02 Lactated Ringers IV 12/13/20 05:44 20 mls/hr .Q20H BIN Administration Norepinephrine Bitartrate 4 mg 254 mls @ 20.326 mls/hr 11/13/20 16:15 11/15/20 03:02 / Sodium Chloride IV 12/13/20 16:16 Not Given .[id number] BIN Protocol 0.05 MCG/KG/MIN Cefazolin Sodium 2 gm/ Sodium 50 mls @ 100 mls/hr 11/14/20 00:00 11/14/20 23:31 Chloride IVPB 100 mls/hr Q8HR BIN Administration Insulin Human Regular 100 unit 101 mls @ 0 mls/hr 11/13/20 21:30 11/15/20 09:15 / Sodium Chloride IV 3 mls/hr .Q0M BIN 3 mls/hr Titration Protocol Per Protocol Amiodarone HCl 450 mg/ 250 mls @ 16.667 mls/hr 11/15/20 01:00 11/15/20 00:52 Dextrose/Water IV 11/15/20 18:59 0.5 mg/min .Q15H BIN 16.667 mls/hr Administration Protocol 0.5 MG/MIN Lidocaine HCl 0.1 ml 11/13/20 05:43 11/13/20 06:48 Lidocaine 1% (10mg/Ml) For Iv Start INTRADERMA 12/13/20 05:44 0.1 ml PER PROTOCOL PRN Administration IV Start Magnesium Hydroxide 2,400 mg 11/13/20 19:14 Magnesium Hydroxide 2,400 Mg/10 Ml Cup PO 12/13/20 19:15 DAILY PRN Constipation Miscellaneous Information 1 each 11/15/20 08:14 Potassium Replacement Protocol 1 Each Misc MISCELLANE DAILY PRN Per Protocol Protocol Oxycodone HCl 5 mg 11/13/20 19:14 Oxycodone Hcl 5 Mg Tab PO 12/13/20 19:15 Q4HR PRN Pain Scale 4 - 6 Oxycodone HCl 10 mg 11/13/20 19:14 Oxycodone Hcl 5 Mg Tab PO 12/13/20 19:15 Q4HR PRN Pain Scale 7 - 10 Pantoprazole Sodium 40 mg 11/13/20 21:30 11/14/20 08:26 Pantoprazole 40 Mg/10 Ml Vial IVP 40 mg DAILY BIN Administration Senna/Docusate Sodium 2 each 11/13/20 19:14 Sennosides-Docusate Sodium 1 Each Tab PO 12/13/20 19:15 DAILY PRN Constipation Sodium Biphosphate/Sodium Phosphate 133 ml 11/13/20 19:14 Na Phos,M-B/Na Phos,Di-Ba 133 Ml Enema RECTAL 12/13/20 19:15 DAILY PRN Constipation Tramadol HCl 50 mg 11/13/20 21:00 11/14/20 20:26 Tramadol 50 Mg Tab PO 12/13/20 21:01 50 mg BID BIN Administration Intake and Output 11/14/20 11/15/20 11/15/20 22:59 06:59 14:59 Intake Total 480.117 263.250 55.666 Output Total 545 435 85 Balance -64.883 -171.750 -29.334 Intake: IV 3 24 3 A-Line 3 24 3 Intake, IV Titration 377.117 239.250 52.666 Amount Amiodarone 360 mg In 33.3 Dextrose 5% in Water 200 ml @ 1 MG/MIN 33.333 mls/ hr IV .Q6H [facility] Rx#: [id number] Dextrose 5% in Water 100 100 ml @ 618 mls/hr IV .Q10M ONE with Amiodarone 150 mg Rx#:[id number] Insulin Regular 100 unit 33.817 29.250 12.666 In Sodium Chloride 0.9% 100 ml @ Per Protocol IV .Q0M [facility] Rx#:[id number] Lactated Ringers 1,000 ml 160 160 40 @ 20 mls/hr IV .Q24H [facility] Rx#:[id number] ceFAZolin 2 gm In Sodium 50 50 Chloride 0.9% 50 ml @ 100 mls/hr IVPB Q8HR [facility] Rx# :[id number] Oral 100 Output: Chest Tube Drainage 0 rt pleural 0 Drainage 135 105 Left 35 15 Right 100 90 Urine 410 330 85 Other: Voiding Method Indwelling Catheter Indwelling Catheter Indwelling Catheter Weight 110.6 kg 11/15/20 04:10 11/15/20 04:10
[2020-11-15 11:13] LABS: Glucose,Whole Blood 151 mg/dL (75-99)
--- NOTE | 2020-11-15 11:19 | P.PN ---
Subjective Progress Note Date: 11/15/20 Principal diagnosis: Status post L2 to pelvis fusion with T12 to S1 decompression, postoperative right-sided tension pneumothorax On 11/15/2020 patient is seen in follow-up in the intensive care unit, today is postoperative day #2, status post L2 to pelvis fusion with T12 to S1 decompression, dural erosion and repair with right-sided tension pneumothorax, requiring placement of a right-sided chest tube on postoperative day #0, and continued mechanical ventilator support, patient was successfully weaned and extubated yesterday on 11/14/2020, her chest x-ray shows satisfactory reexpansion of the right lung, no air leak on today's exam. It remains connected to wall suction, there is minimal serosanguineous output in the Pleur- evac. She is a bit somnolent, but easily arouses to voice, and answers questions appropriately, last night she went into A. fib with RVR, she was started on amiodarone drip at 0.5 mg/m, she is on 0.9 normal saline at a rate of 20 ML per hour, and insulin infusion is at 4 units per hour, currently she is back in sinus rhythm with a rate of 68, she does have a permanent pacemaker, she is pacing with underlying rhythm of sinus. Cardiology is following, she is not on any anticoagulation, apparently she does have a history of paroxysmal atrial fibrillation, however normally is not on any chronic anticoagulants related to previous history of GI bleeding. She is breathing comfortably, she is on 2 L of oxygen pulse ox is 96%, she is resting in bed, the head of the bed is about 15- 20 per orthopedic surgery recommendations, today's chest x-ray shows interval extubation, and atelectasis, retrocardiac density, perihilar density on the rig ht. Right hemidiaphragm remains elevated. His labs have been reviewed, white blood cell count is 12.2, hemoglobin is 10, platelet count is 68, there is no obvious bleeding noted, patient will be transfused with 1 unit of platelets per orthopedic surgery recommendations, sodium is 139, potassium 3.9, chloride is 109, BUN is 47, creatinine is 1.45, patient has been tolerating sips of water, not much of an appetite right now, she has lactated Ringer's at a rate of 20 ML per hour. Urine output is about 40-45 ML per hour, she is hemodynamically stable, not requiring any vasopressor support. Objective - Vital Signs Vital signs: Vital Signs Temp 98.4 F 11/15/20 09:00 Pulse 70 11/15/20 10:30 Resp 15 11/15/20 10:30 BP 112/58 11/15/20 10:00 Pulse Ox 97 11/15/20 10:30 Intake & Output 11/14/20 11/15/20 11/15/20 18:59 06:59 18:59 Intake Total 679.559 493.300 151.666 Output Total 965 740 165 Balance -285.441 -246.700 -13.334 Weight 110.6 kg Intake: IV 27 9 A-Line 27 9 Intake, IV Titration 539.559 466.300 92.666 Amount Amiodarone 360 mg In 33.3 Dextrose 5% in Water 200 ml @ 1 MG/MIN 33.333 mls/ hr IV .Q6H ONE Rx#: [id number] Dextrose 5% in Water 100 100 ml @ 618 mls/hr IV .Q10M ONE with Amiodarone 150 mg Rx#:[id number] Insulin Regular 100 unit 48.216 43.000 12.666 In Sodium Chloride 0.9% 100 ml @ Per Protocol IV .Q0M [facility] Rx#:[id number] Lactated Ringers 1,000 ml 20 @ 0 mls/hr IV .STK-MED ONE Rx#:[id number] Lactated Ringers 1,000 ml 220 240 80 @ 50 mls/hr IV .Q20H [facility] Rx#:[id number] ceFAZolin 2 gm In Sodium 100 50 Chloride 0.9% 50 ml @ 100 mls/hr IVPB Q8HR [facility] Rx# :[id number] propofoL 1,000 mg In 151.343 Empty Bag 1 bag @ Titrate IV .Q0M [facility] Rx#: [id number] Oral 100 50 Blood Product 0 Platelet Lvds [place]da [place] 0 Cnt1 Unit [id number] Other 40 Output: Chest Tube Drainage 0 rt pleural 0 Gastric Drainage 150 Drainage 375 180 Left 20 30 Right 355 150 Urine 440 560 165 Other: Voiding Method Indwelling Catheter Indwelling Catheter Indwelling Catheter ABP, PAP, CO, CI - Last Documented Arterial Blood Pressure 118/47 - Exam GENERAL EXAM: Lethargic comfortable, 64-year-old white female, on 2 L of oxygen with pulse ox of 96%, easily wakes up to voice, and answers questions appropriately comfortable in no apparent distress. HEAD: Normocephalic/atraumatic. EYES: Normal reaction of pupils, equal size. Conjunctiva pink, sclera white. NOSE: Clear with pink turbinates. THROAT: No erythema or exudates. NECK: No masses, no JVD, no thyroid enlargement, no adenopathy. CHEST: No chest wall deformity. Symmetrical expansion. Right-sided chest tube in place to wall suction, with no evidence of air leak, minimal serosanguineous output in the Pleur-evac LUNGS: Equal air entry with no crackles, wheeze, rhonchi or dullness. CVS: Regular rate and rhythm, normal S1 and S2, no gallops, no murmurs, no rubs ABDOMEN: Soft, nontender. No hepatosplenomegaly, normal bowel sounds, no guarding or rigidity. EXTREMITIES: No clubbing, no edema, no cyanosis, 2+ pulses and upper and lower extremities. MUSCULOSKELETAL: Muscle strength and tone normal. SPINE: No scoliosis or deformity SKIN: No rashes. Surgical incision on the back, clean dry and intact, covered with a surgical dressing CENTRAL NERVOUS SYSTEM: Lethargic but arousable and oriented -3. No focal deficits, tone is normal in all 4 extremities. - Labs CBC & Chem 7: 11/15/20 04:10 11/15/20 04:10 Labs: Abnormal Lab Results - Last 24 Hours (Table) 11/07/20 11/14/20 11/14/20 Range/Units 08:28 10:58 12:03 WBC (3.8-10.6) k/uL RBC (3.80-5.40) m/uL Hgb (11.4-16.0) gm/dL Hct (34.0-46.0) % RDW (11.5-15.5) % Plt Count (150-450) k/uL Neutrophils # (1.3-7.7) k/uL Lymphocytes # (1.0-4.8) k/uL Chloride (98-107) mmol/L BUN (7-17) mg/dL Creatinine (0.52-1.04) mg/dL Glucose (74-99) mg/dL POC Glucose (mg/dL) 165 H 156 H (75-99) mg/dL Calcium (8.4-10.2) mg/dL AST (14-36) U/L ALT (4-34) U/L Total Protein (6.3-8.2) g/dL Albumin (3.5-5.0) g/dL Crossmatch See Detail 11/14/20 11/14/20 11/14/20 Range/Units 13:27 14:47 16:13 WBC (3.8-10.6) k/uL RBC (3.80-5.40) m/uL Hgb (11.4-16.0) gm/dL Hct (34.0-46.0) % RDW (11.5-15.5) % Plt Count (150-450) k/uL Neutrophils # (1.3-7.7) k/uL Lymphocytes # (1.0-4.8) k/uL Chloride (98-107) mmol/L BUN (7-17) mg/dL Creatinine (0.52-1.04) mg/dL Glucose (74-99) mg/dL POC Glucose (mg/dL) 160 H 164 H 156 H (75-99) mg/dL Calcium (8.4-10.2) mg/dL AST (14-36) U/L ALT (4-34) U/L Total Protein (6.3-8.2) g/dL Albumin (3.5-5.0) g/dL Crossmatch 11/14/20 11/14/20 11/14/20 Range/Units 17:49 19:02 20:31 WBC (3.8-10.6) k/uL RBC (3.80-5.40) m/uL Hgb (11.4-16.0) gm/dL Hct (34.0-46.0) % RDW (11.5-15.5) % Plt Count (150-450) k/uL Neutrophils # (1.3-7.7) k/uL Lymphocytes # (1.0-4.8) k/uL Chloride (98-107) mmol/L BUN (7-17) mg/dL Creatinine (0.52-1.04) mg/dL Glucose (74-99) mg/dL POC Glucose (mg/dL) 146 H 155 H 155 H (75-99) mg/dL Calcium (8.4-10.2) mg/dL AST (14-36) U/L ALT (4-34) U/L Total Protein (6.3-8.2) g/dL Albumin (3.5-5.0) g/dL Crossmatch 11/14/20 11/14/20 11/15/20 Range/Units 21:54 23:16 01:00 WBC (3.8-10.6) k/uL RBC (3.80-5.40) m/uL Hgb (11.4-16.0) gm/dL Hct (34.0-46.0) % RDW (11.5-15.5) % Plt Count (150-450) k/uL Neutrophils # (1.3-7.7) k/uL Lymphocytes # (1.0-4.8) k/uL Chloride (98-107) mmol/L BUN (7-17) mg/dL Creatinine (0.52-1.04) mg/dL Glucose (74-99) mg/dL POC Glucose (mg/dL) 160 H 149 H 160 H (75-99) mg/dL Calcium (8.4-10.2) mg/dL AST (14-36) U/L ALT (4-34) U/L Total Protein (6.3-8.2) g/dL Albumin (3.5-5.0) g/dL Crossmatch 11/15/20 11/15/20 11/15/20 Range/Units 01:54 03:00 04:06 WBC (3.8-10.6) k/uL RBC (3.80-5.40) m/uL Hgb (11.4-16.0) gm/dL Hct (34.0-46.0) % RDW (11.5-15.5) % Plt Count (150-450) k/uL Neutrophils # (1.3-7.7) k/uL Lymphocytes # (1.0-4.8) k/uL Chloride (98-107) mmol/L BUN (7-17) mg/dL Creatinine (0.52-1.04) mg/dL Glucose (74-99) mg/dL POC Glucose (mg/dL) 163 H 168 H 167 H (75-99) mg/dL Calcium (8.4-10.2) mg/dL AST (14-36) U/L ALT (4-34) U/L Total Protein (6.3-8.2) g/dL Albumin (3.5-5.0) g/dL Crossmatch 11/15/20 11/15/20 11/15/20 Range/Units 04:10 04:10 05:13 WBC 12.2 H (3.8-10.6) k/uL RBC 3.19 L (3.80-5.40) m/uL Hgb 10.0 L D (11.4-16.0) gm/dL Hct 28.3 L (34.0-46.0) % RDW 16.3 H (11.5-15.5) % Plt Count 68 L (150-450) k/uL Neutrophils # 10.3 H (1.3-7.7) k/uL Lymphocytes # 0.9 L (1.0-4.8) k/uL Chloride 109 H (98-107) mmol/L BUN 47 H (7-17) mg/dL Creatinine 1.45 H (0.52-1.04) mg/dL Glucose 156 H (74-99) mg/dL POC Glucose (mg/dL) 156 H (75-99) mg/dL Calcium 8.0 L (8.4-10.2) mg/dL AST 141 H (14-36) U/L ALT 72 H (4-34) U/L Total Protein 3.9 L (6.3-8.2) g/dL Albumin 2.2 L (3.5-5.0) g/dL Crossmatch 11/15/20 11/15/20 11/15/20 Range/Units 06:22 07:42 09:13 WBC (3.8-10.6) k/uL RBC (3.80-5.40) m/uL Hgb (11.4-16.0) gm/dL Hct (34.0-46.0) % RDW (11.5-15.5) % Plt Count (150-450) k/uL Neutrophils # (1.3-7.7) k/uL Lymphocytes # (1.0-4.8) k/uL Chloride (98-107) mmol/L BUN (7-17) mg/dL Creatinine (0.52-1.04) mg/dL Glucose (74-99) mg/dL POC Glucose (mg/dL) 175 H 166 H 146 H (75-99) mg/dL Calcium (8.4-10.2) mg/dL AST (14-36) U/L ALT (4-34) U/L Total Protein (6.3-8.2) g/dL Albumin (3.5-5.0) g/dL Crossmatch 11/15/20 Range/Units 10:08 WBC (3.8-10.6) k/uL RBC (3.80-5.40) m/uL Hgb (11.4-16.0) gm/dL Hct (34.0-46.0) % RDW (11.5-15.5) % Plt Count (150-450) k/uL Neutrophils # (1.3-7.7) k/uL Lymphocytes # (1.0-4.8) k/uL Chloride (98-107) mmol/L BUN (7-17) mg/dL Creatinine (0.52-1.04) mg/dL Glucose (74-99) mg/dL POC Glucose (mg/dL) 159 H (75-99) mg/dL Calcium (8.4-10.2) mg/dL AST (14-36) U/L ALT (4-34) U/L Total Protein (6.3-8.2) g/dL Albumin (3.5-5.0) g/dL Crossmatch Assessment and Plan Plan: Assessment: #1. Pseudoarthrosis/lumbar spine, with chronic low back pain and left lower extremity radiculopathy and failure of multiple previous surgeries and medical therapies of physical therapy #2. Status post L2 to pelvis ReVision, decompression and fusion, dural erosion and dural repair, postoperative day #2 #3. Acute hypoxic respiratory failure related to tension pneumothorax, requiring mechanical ventilator support, was successfully weaned and extubated on 11/14/2020 on postoperative day #1 #4. Atrial fibrillation with RVR, was started on amiodarone infusion, currently back in sinus mechanism with a controlled rate #5 Right-sided tension pneumothorax most likely secondary from earlier right IJ central line placement prior to surgery, Quiring placement of right-sided chest tube with subsequent reexpansion of the right lung. The right chest tube today remains in place, no air leak. #6. Postoperative hypotension secondary to acute blood loss, patient had 1.9 L of estimated blood loss during surgery, operative sedation, and tension pneumothorax, currently hemodynamically stable #7. Chronic bronchial asthma, unspecified #8. Type 2 diabetes mellitus #9. Degenerative joint disease #10. Obstructive sleep apnea syndrome #11. History of cardiac ablation #12. Previous history of atrial fibrillation, not on chronic anticoagulation #13. History of nonischemic cardiomyopathy status post AICD placement with a recent upgrade in September 2020 #14. Chronic systolic CHF or graft #14. Chronic kidney disease, unspecified #15. Previous history of GI bleeding Plan: Encourage deep breathing and coughing Encourage incentive spirometry use Today's chest x-ray has been reviewed showing atelectasis, but no evidence of pneumothorax No air leak out of the right-sided chest tube, we'll place it to water seal Increase lactated Ringer's to 50 Monitor platelet count, and patient will be transfused with 1 unit of platelets Rate control medications per cardiology Currently back in sinus mechanism We'll possibly remove chest tube tomorrow From pulmonary/critical care perspective patient can be moved out of ICU to selective, if okay with orthopedic surgery I performed a history & physical examination of the patient and discussed their management with my nurse practitioner, Yaz Ricardo. I reviewed the nurse practitioner's note and agree with the documented findings and plan of care. Lung sounds are positive for clear breath sounds. The findings and the impression was discussed with the patient. I attest to the documentation by the nurse practitioner. Time with Patient: Greater than 30
[2020-11-15 11:52] LABS: Glucose,Whole Blood 157 mg/dL (75-99)
[2020-11-15 12:58] LABS: Glucose,Whole Blood 170 mg/dL (75-99)
[2020-11-15 15:06] LABS: Glucose,Whole Blood 165 mg/dL (75-99)
[2020-11-15 16:56] LABS: Glucose,Whole Blood 134 mg/dL (75-99)
[2020-11-15] MEDS: INSULIN ASPART (NovoLOG) 100 UNIT/ML VIAL SQ SCH ×2 (17:35→21:23)
--- NOTE | 2020-11-15 19:13 | XR ---
EXAMINATION: XR chest 1V portable DATE AND TIME: 11/15/2020 6:51 PM CLINICAL INDICATION: PHH; nos sob TECHNIQUE: AP portable upright COMPARISON: 11/15/2020 at 5:02 AM FINDINGS: Dual lead cardiac pacemaker redemonstrated. Chest tube and EKG leads also redemonstrated. The lung inflation pattern is similar to the prior study; no new lung parenchymal process. The pleural spaces are negative as seen. The cardiac silhouette enlargement is redemonstrated. The remainder of the mediastinal silhouette is unremarkable. The skeletal structures and soft tissues are negative for acute findings. IMPRESSION: Stable radiographic appearance.
[2020-11-15] MEDS: INSULIN DETEMIR (LEVEMIR) 100 UNIT/ML SYR SQ SCH (21:15)
[2020-11-15 21:20] LABS: Glucose,Whole Blood 203 mg/dL (75-99)
[2020-11-16] MEDS: ACETAMINOPHEN TAB 500 MG TAB PO SCH ×4 (01:35→17:24)
[2020-11-16] MEDS: HYDROmorphone 1 MG/ML 1 ML SYRINGE IVP PRN (02:30)
--- NOTE | 2020-11-16 05:24 | PN ---
PROGRESS NOTE 64-year-old white female, status post lumbar stenosis has been weaned down oxygen on 3 to 4 L. Being transferred out of the ICU. She is back on home medicines for insulin to 15 units with meals, 40 units Levemir at night. Cardiovascular S1-S2. Lungs clear. GI soft. Hematology negative Homans. Psych fair mood and affect. ASSESSMENT: 1. Insulin-dependent diabetes mellitus. 2. Status post lumbar disk surgery. 3. Gastroesophageal reflux disease. 4. Hypertension. PROGNOSIS: Guarded. Follow up in next 24 to 48 hours. Transfer out of ICU. Accu-Chek protocol. MMODL / IJN: [id number] /
[2020-11-16] MEDS: carvediloL 12.5 MG TAB PO SCH ×2 (06:28→17:25)
[2020-11-16] MEDS: INSULIN ASPART (NovoLOG) 100 UNIT/ML VIAL SQ SCH ×7 (06:34→21:03)
[2020-11-16 06:45] LABS: Glucose,Whole Blood 112 mg/dL (75-99)
[2020-11-16 07:52] LABS: Basophils % (A) 0 %; Eosinophils # (A) 0.1 k/uL (0-0.7); Eosinophils % (A) 1 %; HCT 25.9 % (34.0-46.0); HGB 8.8 gm/dL (11.4-16.0); Lymphocytes # (A) 1.2 k/uL (1.0-4.8); Lymphocytes % (A) 17 %; MCH 31.8 pg (25.0-35.0); MCHC 34.2 g/dL (31.0-37.0); MCV 93.1 fL (80.0-100.0); Mean Platelet Volume 8.3; Monocytes # (A) 0.4 k/uL (0-1.0); Monocytes % (A) 6 %; Neutrophils # (A) 5.4 k/uL (1.3-7.7); Neutrophils % (A) 74 %; RBC 2.78 m/uL (3.80-5.40); RDW 15.7 % (11.5-15.5); WBC 7.2 k/uL (3.8-10.6)
--- NOTE | 2020-11-16 07:53 | P.PN ---
Subjective HISTORY OF PRESENTING ILLNESS This is a pleasant 64-year-old female past medical history significant for nonischemic cardiomyopathy status post AICD with recent upgrade September 2020, chronic systolic heart failure, hypertension, diabetes mellitus, asthma, dyslipidemia and multiple surgeries. She follows in the office with Dr. Ling. We have been asked to see in consultation for new onset atrial fibrillation. She underwent L2-P revision, decompression and fusion. Postoperatively she became hypotensive with an estimated blood loss of 1.9 L. She was given fluids however she continued to be hypotensive and required norepinephrine. She was transferred to the intensive care unit. Initial chest xray on arrival to ICU showed a tension pneumothorax. Dr. Desouza placed a chest tube. Last night while in the ICU she went into afib with RVR. She was started on an amiodarone infusion. She has since converted to sinus rhythm. She is seen and examined laying flat in bed in no acute distress. She continues to have low back pain. She denies chest pain, shortness of breath, dizziness or palpitations. She did not feel palpitations last night while in afib. Repeat chest xray today reveals atelectasis vs edema vs pneumonia. Laboratory data reviewed, WBC 12.2, hgb 10, plt 68 sodium 139, potassium 3.9, creatinine 1.45. Currently maintained on aldactone 12.5 mg daily, lasix 10 mg daily, aspirin 81 mg daily, atorvastatin 20 mg daily and coreg 12.5 mg BID. Most recent echocardiogram obtained 05/2019 revealed severely impaired LV systolic function with ejection fraction 20-25% with global LV hypokinesia noted. 11/16 Since seen and examined. Patient admits her back pain is somewhat better. She has remained in normal sinus rhythm. Blood work from this morning not back however no noted bleeding. She did have her chest tube pulled and admits to some breathing difficulty during that time however feels much better now. Denies any shortness breath. Mild puffiness of her upper extremities however no lower extremity edema. PHYSICAL EXAMINATION Vitals reviewed CONSTITUTIONAL: No apparent distress. HEENT: Head is normocephalic. Pupils are equal, round. Sclerae anicteric. Mucous membranes of the mouth are moist. No JVD. No carotid bruit. CHEST EXAMINATION: Lungs are clear to auscultation. No chest wall tenderness is noted on palpation or with deep breathing. HEART EXAMINATION: Regular rate and rhythm. S1, S2 heard. No murmurs, gallops or rub. ABDOMEN: Soft, nontender. EXTREMITIES: 2+ peripheral pulses, no lower extremity edema and no calf tenderness. NEUROLOGIC EXAMINATION: Patient is awake, alert and oriented x3. ASSESSMENT New onset paroxysmal atrial fibrillation with rapid ventricular rate Status post L2-p revision, decompression, fusion with a dural erosion and repair Thrombocytopenia Nonischemic cardiomyopathy status post AICD Chronic systolic heart failure, clinically euvolemic Hypertension Diabetes mellitus Dyslipidemia Chronic kidney disease PLAN Continue heart failure regimen with carvedilol 12.5 mg twice a day, however has not been on KERWIN inhibitor or ARB with borderline blood pressures and patient on Midodrine at home. No further episodes of atrial fibrillation. She is status post amiodarone drip. We will hold amiodarone for now however if has recurrence likely restart. Ideally anticoagulation however would let patient healed from back surgery and then may consider starting angulation as an outpatient. Continue home diuretics. No further recommendations from a cardiac standpoint. Please call with any questions. Objective - Vital Signs Vital signs: Vital Signs Temp 97.9 F 11/16/20 04:00 Pulse 64 11/16/20 07:00 Resp 19 11/16/20 07:00 BP 103/56 11/16/20 07:00 Pulse Ox 99 11/16/20 07:00 Intake & Output 11/15/20 11/16/20 11/16/20 18:59 06:59 18:59 Intake Total 538.092 210 20 Output Total 430 1277 40 Balance 108.092 -1067 -20 Intake: IV 18 100 20 A-Line 18 100 20 Intake, IV Titration 162.092 50 Amount Insulin Regular 100 unit 22.092 In Sodium Chloride 0.9% 100 ml @ Per Protocol IV .Q0M [facility] Rx#:[id number] Lactated Ringers 1,000 ml 140 @ 50 mls/hr IV .Q20H [facility] Rx#:[id number] ceFAZolin 2 gm In Sodium 50 Chloride 0.9% 50 ml @ 100 mls/hr IVPB Q8HR [facility] Rx# :[id number] Oral 50 60 Blood Product 308 Platelet Lvds Acda Pas 308 Cnt1 Unit [id number] Output: Chest Tube Drainage 2 rt pleural 2 Drainage 150 Left 30 Right 120 Urine 430 1125 40 Other: Voiding Method Indwelling Catheter Indwelling Catheter ABP, PAP, CO, CI - Last Documented Arterial Blood Pressure 135/48 - Labs CBC & Chem 7: 11/15/20 04:10 11/15/20 04:10 Labs: Abnormal Lab Results - Last 24 Hours (Table) 11/07/20 11/15/20 11/15/20 Range/Units 08:28 07:42 09:13 POC Glucose (mg/dL) 166 H 146 H (75-99) mg/dL Crossmatch See Detail 11/15/20 11/15/20 11/15/20 Range/Units 10:08 11:11 11:50 POC Glucose (mg/dL) 159 H 151 H 157 H (75-99) mg/dL Crossmatch 11/15/20 11/15/20 11/15/20 Range/Units 12:57 15:04 16:51 POC Glucose (mg/dL) 170 H 165 H 134 H (75-99) mg/dL Crossmatch 11/15/20 11/16/20 Range/Units 21:18 06:33 POC Glucose (mg/dL) 203 H 112 H (75-99) mg/dL Crossmatch
[2020-11-16 07:54] LABS: Platelet Count 70 k/uL (150-450)
[2020-11-16 08:03] LABS: Calcium 7.9 mg/dL (8.4-10.2); Potassium 3.9 mmol/L (3.5-5.1)
--- NOTE | 2020-11-16 08:25 | XR ---
EXAMINATION TYPE: XR chest 1V portable DATE OF EXAM: 11/16/2020 COMPARISON: Chest x-ray dated 11/15/2020 HISTORY: Pneumonia, follow-up TECHNIQUE: Single frontal view of the chest is obtained. FINDINGS: Patient is again rotated. Cardiac mediastinal silhouette is stable. No evident pneumothora x or pleural effusion. Some minimal patchy basilar density suspected. IMPRESSION: Possible basilar atelectasis rather than pneumonia, consider PA and lateral chest x-ray for better evaluation.
[2020-11-16] MEDS: traMADol 50 MG TAB PO SCH ×2 (08:54→21:04)
[2020-11-16] MEDS: FUROSEMIDE 10 MG TAB PO SCH (08:55)
[2020-11-16] MEDS: PANTOPRAZOLE 40 MG/10 ML VIAL IVP SCH (08:55)
--- NOTE | 2020-11-16 10:22 | XR ---
EXAMINATION TYPE: XR chest 1V portable DATE OF EXAM: 11/16/2020 COMPARISON: Chest x-ray same dated earlier time HISTORY: Chest tube TECHNIQUE: Single frontal view of the chest is obtained. FINDINGS: Right-sided chest tube is stable, no interval change. No evident pneumothorax. IMPRESSION: No evident complication status post clamping of right chest tube
[2020-11-16] MEDS: HYDROmorphone 0.5 MG/0.5 ML SYRINGE IVP PRN ×3 (11:37→21:04)
[2020-11-16] MEDS ORDERED: ATROPINE SULFATE 0.1 MG/ML 10ML SYRINGE ONE (11:41)
[2020-11-16 11:45] LABS: Glucose,Whole Blood 182 mg/dL (75-99)
--- NOTE | 2020-11-16 12:51 | P.PN ---
Subjective Progress Note Date: 11/16/20 Principal diagnosis: Pseudoarthrosis Patient seen and examined this morning she is actually doing very well she is sitting up in bed denies any headache blurred vision change in vision nausea vomiting at this time. Patient states no pain in her legs she does have some discomfort in her back however is getting better. She states she wants to get up and move around today. She denies fevers chills shortness breath or chest pain at this time. Chest tube is still in on the right-hand side bilateral drains are still in and her dressing is slightly saturated. Objective - Vital Signs Vital signs: Vital Signs Temp 97.7 F 11/16/20 12:00 Pulse 67 11/16/20 12:30 Resp 14 11/16/20 12:30 BP 121/59 11/16/20 12:00 Pulse Ox 98 11/16/20 12:30 Intake & Output 11/15/20 11/16/20 11/16/20 18:59 06:59 18:59 Intake Total 538.092 210 60 Output Total 430 1277 100 Balance 108.092 -1067 -40 Intake: IV 18 100 60 A-Line 18 100 60 Intake, IV Titration 162.092 50 Amount Insulin Regular 100 unit 22.092 In Sodium Chloride 0.9% 100 ml @ Per Protocol IV .Q0M BIN Rx#:[id number] Lactated Ringers 1,000 ml 140 @ 50 mls/hr IV .Q20H BIN Rx#:[id number] ceFAZolin 2 gm In Sodium 50 Chloride 0.9% 50 ml @ 100 mls/hr IVPB Q8HR BIN Rx# :[id number] Oral 50 60 Blood Product 308 Platelet Lvds Acda Pas 308 Cnt1 Unit [id number] Output: Chest Tube Drainage 2 rt pleural 2 Drainage 150 Left 30 Right 120 Urine 430 1125 100 Other: Voiding Method Indwelling Catheter Indwelling Catheter Indwelling Catheter ABP, PAP, CO, CI - Last Documented Arterial Blood Pressure 135/48 - Exam Exam is stable today. We will likely pull the superficial drain later Patient is alert and oriented 3 appears well-nourished well-hydrated is in no acute distress. They does not appear septic. On exam the patient has minor tenderness to palpation around the incision site the dressing is clean and dry at this time. Drains on either side R in place the deep drain on the right-hand side had 130 out since yesterday of serosanguineous sanguinous discharge no clear discharge the left superficial drain had 0. Lower extremities with 4+ out of 5 strength in all major muscle groups. She is able to wiggle her toes pump her ankles up and down and lift her legs out of the bed under her own power at this time he has good strength through being in bed and laying flat Upper extremities show 5/5 strength in all major muscle groups. There is FROM that is painless of the b/l UE and LE in all major joints. They are intact to light touch sensation in L2 to S1 nerve distribution. Patient has palpable dorsalis pedis was posterior tibial pulses. Compartments are soft and compressible. Patient shows a negative Homans, Miguel's, negative Babinski's negative clonus bilaterally. negative straight leg raise bilaterally. No tensioning signs. Cranial nerves II through XII are grossly intact. - Labs CBC & Chem 7: 11/16/20 07:31 11/16/20 07:31 Labs: Abnormal Lab Results - Last 24 Hours (Table) 11/15/20 11/15/20 11/15/20 Range/Units 12:57 15:04 16:51 RBC (3.80-5.40) m/uL Hgb (11.4-16.0) gm/dL Hct (34.0-46.0) % RDW (11.5-15.5) % Plt Count (150-450) k/uL Chloride (98-107) mmol/L BUN (7-17) mg/dL Creatinine (0.52-1.04) mg/dL Glucose (74-99) mg/dL POC Glucose (mg/dL) 170 H 165 H 134 H (75-99) mg/dL Calcium (8.4-10.2) mg/dL 11/15/20 11/16/20 11/16/20 Range/Units 21:18 06:33 07:31 RBC 2.78 L (3.80-5.40) m/uL Hgb 8.8 L (11.4-16.0) gm/dL Hct 25.9 L (34.0-46.0) % RDW 15.7 H (11.5-15.5) % Plt Count 70 L (150-450) k/uL Chloride (98-107) mmol/L BUN (7-17) mg/dL Creatinine (0.52-1.04) mg/dL Glucose (74-99) mg/dL POC Glucose (mg/dL) 203 H 112 H (75-99) mg/dL Calcium (8.4-10.2) mg/dL 11/16/20 11/16/20 Range/Units 07:31 11:44 RBC (3.80-5.40) m/uL Hgb (11.4-16.0) gm/dL Hct (34.0-46.0) % RDW (11.5-15.5) % Plt Count (150-450) k/uL Chloride 110 H (98-107) mmol/L BUN 37 H (7-17) mg/dL Creatinine 1.25 H (0.52-1.04) mg/dL Glucose 109 H (74-99) mg/dL POC Glucose (mg/dL) 182 H (75-99) mg/dL Calcium 7.9 L (8.4-10.2) mg/dL Assessment and Plan Assessment: 64-year-old female postop day 3 L2 to pelvis fusion with T12 to S1 decompression, dural erosion and repair with right-sided tension pneumothorax status post chest tube placement 1. Status post multiple lumbar surgeries with low back pain and lower extremity weakness 2. Pseudoarthrosis L3-S1, incomplete instrumentation 3. Low back pain, LE radiculopathy 4. Neurogenic claudication 5. L3-S1 stenosis 6. Mechanical back pain Plan: -Appreciate networks software consultant and team management. Appreciate ICU management -Continue with ICU team management for chest tube -Trend labs transfuse for vital signs as necessary -Activity: Gradual increase in activity sit to stand sit in chair all meals out of bed she can attempt to ambulate without the brace to go short distances however she is going to walk and do physical therapy she should have her brace. -Daily PT/OT, increase ambulation strength and balance. -TLSO ordered awaiting arrival -Pain control: Adequate at this time -Meds: reviewed, continue with antibiotics -GI ppx: senna, Miralax -DC bill when up and about, bedside commode if needed -DVT PPX: Heparin twice a day -Hygiene: Log roll every 2-3 hours, maintaining good hygiene and clean buttocks and perineal region -Drains: Maintain for now. Record output. DC superficial drain -Encourage IS 10x/hr -Dispo: Pending will likely need rehab placement
--- NOTE | 2020-11-16 13:03 | P.PN ---
Subjective Progress Note Date: 11/16/20 Principal diagnosis: Status post L2 to pelvis fusion with T12 to S1 decompression, postoperative right-sided tension pneumothorax On 11/15/2020 patient is seen in follow-up in the intensive care unit, today is postoperative day #2, status post L2 to pelvis fusion with T12 to S1 decompression, dural erosion and repair with right-sided tension pneumothorax, requiring placement of a right-sided chest tube on postoperative day #0, and continued mechanical ventilator support, patient was successfully weaned and extubated yesterday on 11/14/2020, her chest x-ray shows satisfactory reexpansion of the right lung, no air leak on today's exam. It remains connected to wall suction, there is minimal serosanguineous output in the Pleur- evac. She is a bit somnolent, but easily arouses to voice, and answers questions appropriately, last night she went into A. fib with RVR, she was started on amiodarone drip at 0.5 mg/m, she is on 0.9 normal saline at a rate of 20 ML per hour, and insulin infusion is at 4 units per hour, currently she is back in sinus rhythm with a rate of 68, she does have a permanent pacemaker, she is pacing with underlying rhythm of sinus. Cardiology is following, she is not on any anticoagulation, apparently she does have a history of paroxysmal atrial fibrillation, however normally is not on any chronic anticoagulants related to previous history of GI bleeding. She is breathing comfortably, she is on 2 L of oxygen pulse ox is 96%, she is resting in bed, the head of the bed is about 15- 20 per orthopedic surgery recommendations, today's chest x-ray shows interval extubation, and atelectasis, retrocardiac density, perihilar density on the rig ht. Right hemidiaphragm remains elevated. His labs have been reviewed, white blood cell count is 12.2, hemoglobin is 10, platelet count is 68, there is no obvious bleeding noted, patient will be transfused with 1 unit of platelets per orthopedic surgery recommendations, sodium is 139, potassium 3.9, chloride is 109, BUN is 47, creatinine is 1.45, patient has been tolerating sips of water, not much of an appetite right now, she has lactated Ringer's at a rate of 20 ML per hour. Urine output is about 40-45 ML per hour, she is hemodynamically stable, not requiring any vasopressor support. On 11/16/2020 patient seen in follow-up in the intensive care unit. Yesterday patient was transferred out of intensive care unit however in the evening she developed episode of right upper anterior chest pain, with radiation to the neck. This was accompanied by shortness of breath, earlier in the day her chest tube had been placed to suction. Her vital signs were stable, stat chest x-ray had been obtained to rule out possibility of right-sided pneumothorax, and it showed no evidence of pneumothorax, no new lung parenchymal process. Patient was transferred back to the intensive care unit. She had remained stable, vitals have been stable, her sats were 97% on 2 L. this morning she remains on 2 L of oxygen and her pulse ox is 96%, she denies any sternal chest pain, she is just complaining of the right chest tube insertion site discomfort. She is on 0.9 normal saline at a rate of 20 ML per hour, he is in sinus mechanism, she is sitting up in a chair, this morning's chest x-ray shows possible basilar atelectasis, no evident pneumothorax. The right-sided chest tube had been clamped, and repeat chest x-ray showed stable findings as before. The right- sided chest tube was then discontinued, patient tolerated it well, remains on 2 L of oxygen, she is working on intense per hour, achieving 1.5 L. The rest of blood work has been reviewed, her white count is 7.2, hemoglobin is 8.8, sodium is 141, potassium is 3.9, chloride is 110, B1 is 37, creatinine is 1.25. She remains in sinus mechanism, her amiodarone drip has been discontinued, she has been started on Coreg, she was started on small dose of maintenance Lasix 10 mg daily she is on antibiotics per orthopedic surgery, her incision on her back is draining some serous fluid, she does have a covered with a surgical dressing w hich is at this time saturated with serous drainage. 2 RENE drains with small amount of serosanguineous output, compressed and draining Objective - Vital Signs Vital signs: Vital Signs Temp 97.7 F 11/16/20 12:00 Pulse 67 11/16/20 12:30 Resp 14 11/16/20 12:30 BP 121/59 11/16/20 12:00 Pulse Ox 98 11/16/20 12:30 Intake & Output 11/15/20 11/16/20 11/16/20 18:59 06:59 18:59 Intake Total 538.092 210 60 Output Total 430 1277 100 Balance 108.092 -1067 -40 Intake: IV 18 100 60 A-Line 18 100 60 Intake, IV Titration 162.092 50 Amount Insulin Regular 100 unit 22.092 In Sodium Chloride 0.9% 100 ml @ Per Protocol IV .Q0M BIN Rx#:[id number] Lactated Ringers 1,000 ml 140 @ 50 mls/hr IV .Q20H BIN Rx#:[id number] ceFAZolin 2 gm In Sodium 50 Chloride 0.9% 50 ml @ 100 mls/hr IVPB Q8HR BIN Rx# :[id number] Oral 50 60 Blood Product 308 Platelet Lvds Acda Pas 308 Cnt1 Unit [id number] Output: Chest Tube Drainage 2 rt pleural 2 Drainage 150 Left 30 Right 120 Urine 430 1125 100 Other: Voiding Method Indwelling Catheter Indwelling Catheter Indwelling Catheter ABP, PAP, CO, CI - Last Documented Arterial Blood Pressure 135/48 - Exam GENERAL EXAM: Awake comfortable, 64-year-old white female, on 2 L of oxygen with pulse ox of 96%, comfortable in no apparent distress. HEAD: Normocephalic/atraumatic. EYES: Normal reaction of pupils, equal size. Conjunctiva pink, sclera white. NOSE: Clear with pink turbinates. THROAT: No erythema or exudates. NECK: No masses, no JVD, no thyroid enlargement, no adenopathy. CHEST: No chest wall deformity. Symmetrical expansion. Right-sided chest tube in place to wall suction, with no evidence of air leak, minimal serosanguineous output in the Pleur-evac LUNGS: Equal air entry with no crackles, wheeze, rhonchi or dullness. CVS: Regular rate and rhythm, normal S1 and S2, no gallops, no murmurs, no rubs ABDOMEN: Soft, nontender. No hepatosplenomegaly, normal bowel sounds, no guarding or rigidity. EXTREMITIES: No clubbing, no edema, no cyanosis, 2+ pulses and upper and lower extremities. MUSCULOSKELETAL: Muscle strength and tone normal. SPINE: No scoliosis or deformity. Patient has a surgical incision on the back, covered with surgical dressing, currently saturated with serous drainage, and there is 2 RENE drains on either side of the midline incision on the back, draining small amount of serosanguineous output SKIN: No rashes. Surgical incision on the back, clean dry and intact, covered with a surgical dressing CENTRAL NERVOUS SYSTEM: Lethargic but arousable and oriented -3. No focal deficits, tone is normal in all 4 extremities. - Labs CBC & Chem 7: 11/16/20 07:31 11/16/20 07:31 Labs: Abnormal Lab Results - Last 24 Hours (Table) 11/15/20 11/15/20 11/15/20 Range/Units 12:57 15:04 16:51 RBC (3.80-5.40) m/uL Hgb (11.4-16.0) gm/dL Hct (34.0-46.0) % RDW (11.5-15.5) % Plt Count (150-450) k/uL Chloride (98-107) mmol/L BUN (7-17) mg/dL Creatinine (0.52-1.04) mg/dL Glucose (74-99) mg/dL POC Glucose (mg/dL) 170 H 165 H 134 H (75-99) mg/dL Calcium (8.4-10.2) mg/dL 11/15/20 11/16/20 11/16/20 Range/Units 21:18 06:33 07:31 RBC 2.78 L (3.80-5.40) m/uL Hgb 8.8 L (11.4-16.0) gm/dL Hct 25.9 L (34.0-46.0) % RDW 15.7 H (11.5-15.5) % Plt Count 70 L (150-450) k/uL Chloride (98-107) mmol/L BUN (7-17) mg/dL Creatinine (0.52-1.04) mg/dL Glucose (74-99) mg/dL POC Glucose (mg/dL) 203 H 112 H (75-99) mg/dL Calcium (8.4-10.2) mg/dL 11/16/20 11/16/20 Range/Units 07:31 11:44 RBC (3.80-5.40) m/uL Hgb (11.4-16.0) gm/dL Hct (34.0-46.0) % RDW (11.5-15.5) % Plt Count (150-450) k/uL Chloride 110 H (98-107) mmol/L BUN 37 H (7-17) mg/dL Creatinine 1.25 H (0.52-1.04) mg/dL Glucose 109 H (74-99) mg/dL POC Glucose (mg/dL) 182 H (75-99) mg/dL Calcium 7.9 L (8.4-10.2) mg/dL Assessment and Plan Plan: Assessment: #1. Pseudoarthrosis/lumbar spine, with chronic low back pain and left lower extremity radiculopathy and failure of multiple previous surgeries and medical therapies of physical therapy #2. Status post L2 to pelvis ReVision, decompression and fusion, dural erosion and dural repair, postoperative day #3 #3. Acute hypoxic respiratory failure related to tension pneumothorax, requiring mechanical ventilator support, was successfully weaned and extubated on 11/14/2020 on postoperative day #1 #4. Atrial fibrillation with RVR, was started on amiodarone infusion, currently back in sinus mechanism with a controlled rate #5 Right-sided tension pneumothorax most likely secondary from earlier right IJ central line placement prior to surgery, Quiring placement of right-sided chest tube with subsequent reexpansion of the right lung. The right chest tube today remains in place, no air leak. #6. Postoperative hypotension secondary to acute blood loss, patient had 1.9 L of estimated blood loss during surgery, operative sedation, and tension pneumothorax, currently hemodynamically stable #7. Chronic bronchial asthma, unspecified #8. Type 2 diabetes mellitus #9. Degenerative joint disease #10. Obstructive sleep apnea syndrome #11. History of cardiac ablation #12. Previous history of atrial fibrillation, not on chronic anticoagulation #13. History of nonischemic cardiomyopathy status post AICD placement with a recent upgrade in September 2020 #14. Chronic systolic CHF or graft #14. Chronic kidney disease, unspecified #15. Previous history of GI bleeding Plan: Today's chest x-ray has been reviewed showing atelectasis, but no evidence of pn eumothorax No air leak out of the right-sided chest tube, the chest tube has been clamped, and follow-up chest x-ray showed no evidence of pneumothorax Subsequently the right-sided chest tube has been removed, follow-up chest x-ray in the morning Vital signs have been stable, Patient remains hemodynamically stable, in sinus mechanism Encourage deep breathing and coughing Stable for transfer out of intensive care unit to [facility] care today Anticoagulation and rate control medications per cardiology May need physical therapy, but deferring the decision to orthopedic surgery I performed a history & physical examination of the patient and discussed their management with my nurse practitioner, Yaz Ricardo. I reviewed the nurse practitioner's note and agree with the documented findings and plan of care. Lung sounds are positive for clear breath sounds. The findings and the impression was discussed with the patient. I attest to the documentation by the nurse practitioner. Time with Patient: Less than 30
[2020-11-16 16:28] LABS: Glucose,Whole Blood 236 mg/dL (75-99)
[2020-11-16 18:37] LABS: Glucose,Whole Blood 236 mg/dL (75-99)
[2020-11-16 20:56] LABS: Glucose,Whole Blood 210 mg/dL (75-99)
[2020-11-16] MEDS: INSULIN DETEMIR (LEVEMIR) 100 UNIT/ML SYR SQ SCH (21:03)
[2020-11-17] MEDS: ACETAMINOPHEN TAB 500 MG TAB PO SCH ×5 (00:15→23:41)
[2020-11-17] MEDS: HYDROmorphone 0.5 MG/0.5 ML SYRINGE IVP PRN ×5 (00:15→23:41)
[2020-11-17 07:03] LABS: Glucose,Whole Blood 69 mg/dL (75-99)
[2020-11-17] MEDS: INSULIN ASPART (NovoLOG) 100 UNIT/ML VIAL SQ SCH ×7 (07:07→20:47)
--- NOTE | 2020-11-17 07:16 | XR ---
EXAMINATION TYPE: XR chest 1V portable DATE OF EXAM: 11/17/2020 COMPARISON: 11/16/2020 HISTORY: 64 years Female. STUDY INDICATION GIVEN: follow up pneumothorax . TECHNIQUE: AP chest radiograph IMPRESSION: Status post removal right thoracostomy tube. There is a very small right apical pneumothorax. Right b asilar subsegmental atelectatic changes noted. Interval improvement of right chest wall edema. Small left pleural effusion and left lower lobe subsegmental atelectasis or consolidation. Enlarged cardiomediastinal silhouette similar to prior study with a dual lead cardiac AICD device. Osseous structures are stable in appearance compared to prior.
[2020-11-17 07:23] LABS: Glucose,Whole Blood 81 mg/dL (75-99)
[2020-11-17] MEDS: FUROSEMIDE 10 MG TAB PO SCH (08:11)
[2020-11-17] MEDS: carvediloL 12.5 MG TAB PO SCH ×2 (08:11→17:21)
[2020-11-17] MEDS: traMADol 50 MG TAB PO SCH ×2 (08:11→20:47)
[2020-11-17] MEDS: PANTOPRAZOLE 40 MG/10 ML VIAL IVP SCH (08:12)
[2020-11-17] MEDS: CYCLOBENZAPRINE 5 MG TAB PO PRN (10:58)
[2020-11-17 11:10] LABS: Glucose,Whole Blood 203 mg/dL (75-99)
--- NOTE | 2020-11-17 11:32 | P.PN ---
Subjective Progress Note Date: 11/17/20 Principal diagnosis: Status post L2- p fusion with T12 to S1 decompression dural erosion and repair, postoperative day #4 This is a 64-year-old female with history of multiple medical problems including asthma, type 2 diabetes, dyslipidemia, degenerative joint disease, obstructive sleep apnea syndrome, history of chronic bilateral neuropathy, chronic kidney disease stage III, history of chronic low back pain, patient was recently seen by Dr. Meeks and on consultation for chronic back pain. Patient had a myelogram done and Cruz, stephanie patient failed medical therapy for chronic low back pain, she had no bowel or bladder issues. Had a previous lumbar laminectomy in 1986. Lumbar fusion in 2006 and 2018. Lumbar epidural steroid injections on March 23 2020. And she underwent physical therapy in 2019 without any relief. Patient has been complaining of intermittent low back pain for the last 54 years. Pain was associated with radiculopathy to the left leg, worse with sitting or laying down and with stairs. Patient has been chronically on pain medications. Today the patient underwent L2 he revisions decompression and fusion, postoperatively she was noted to have hypotension, metabolic acidosis, estimated blood loss was 1900 mL, received 5200 MLS with Cell Saver 350 ML back. Patient is receiving more blood, she was noted to be hypotensive in spite of all the fluids given, and she was on 0.08 mcg/kg/m of norepinephrine when she arrived to the ICU. Chest x-ray was done as soon as the patient was brought into the ICU, and she had the endotracheal tube noted to be in the right position, however the patient had a large right tension pneumothorax. I was notified about this patient earlier by the surgeon, that she was being admitted to the ICU, and shortly after she arrived to the ICU was notified by the nurse taking care of the patient hence I came in to evaluate the patient, and went ahead and performed a right sided chest tube thoracostomy. Immediate relief of her tension pneumothorax was noted based on follow-up chest x-ray. And slight improvement was noted also and her blood pressure. I have also recommended treatment of her hyperkalemia, patient was acidotic, bicarb was ordered, and I also ordered calcium gluconate, and recommended repeat ABG and possibly repeat potassium in the next hour. Earlier ABG showed a pO2 of 193 pCO2 of 37 pH of 7.19 with a bicarb of 14 and her potassium was 6.4 with BUN of 37 creatinine of 1.33. Blood sugar was also noted to be elevated at 392. And considering her severe metabolic acidosis, I'm recommending that the patient goes an insulin drip. Patient was reevaluated today on 11/14/2020. Patient remains in the ICU, intubated and mechanically ventilated. She is on assist control rate of 20,000 volume is 400 FiO2 45% PEEP of 5. ABG this morning showed a pO2 of 90 pCO2 40 pH of 7.35. Chest x-ray showed catheters and tubes are in the proper positions, minimal atelectasis at the bases, no evidence of active disease, right-sided chest tube remains in the proper position and no evidence of air leak this morning noted in the pleural VAC. Labs showed relatively normal electrolytes bicarb is up to 21 BUN is 41 creatinine is 1.33. Patient remains on insulin drip at 3.5 units per hour. She is on propofol at 50 mcg/kg/m. And no major events overnight. I do plan to wake of the patient today, discontinue propofol, give the patient a weaning trial, and possibly address weaning and extubation. Patient is hemodynamically stable, she is not requiring any pressors today. On 11/16/2020 patient seen in follow-up in the intensive care unit. Yesterday patient was transferred out of intensive care unit however in the evening she developed episode of right upper anterior chest pain, with radiation to the neck. This was accompanied by shortness of breath, earlier in the day her chest tube had been placed to suction. Her vital signs were stable, stat chest x-ray had been obtained to rule out possibility of right-sided pneumothorax, and it showed no evidence of pneumothorax, no new lung parenchymal process. Patient was transferred back to the intensive care unit. She had remained stable, vitals have been stable, her sats were 97% on 2 L. this morning she remains on 2 L of oxygen and her pulse ox is 96%, she denies any sternal chest pain, she is just complaining of the right chest tube insertion site discomfort. She is on 0.9 normal saline at a rate of 20 ML per hour, he is in sinus mechanism, she is sitting up in a chair, this morning's chest x-ray shows possible basilar atelectasis, no evident pneumothorax. The right-sided chest tube had been clamped, and repeat chest x-ray showed stable findings as before. The right- sided chest tube was then discontinued, patient tolerated it well, remains on 2 L of oxygen, she is working on intense per hour, achieving 1.5 L. The rest of blood work has been reviewed, her white count is 7.2, hemoglobin is 8.8, sodium is 141, potassium is 3.9, chloride is 110, B1 is 37, creatinine is 1.25. She remains in sinus mechanism, her amiodarone drip has been discontinued, she has been started on Coreg, she was started on small dose of maintenance Lasix 10 mg daily she is on antibiotics per orthopedic surgery, her incision on her back is draining some serous fluid, she does have a covered with a surgical dressing which is at this time saturated with serous drainage. 2 RENE drains with small amount of serosanguineous output, compressed and draining Patient was reevaluated today on 11/17/2020, remains in the intensive care unit as an overflow, patient is doing well, she is on room air, O2 sats is 92%. Patient is doing well with incentive spirometry and achieving 1250 mL patient had a follow-up chest x-ray this morning, there is no evidence of pneumothorax, and the right lung is fully expanded. Patient is relatively asymptomatic, labs including CBC and basic metabolic profile noted to be normal. Renal functioning improved creatinine down to 1.25. Overall the patient is doing great, and I will arrange for the patient to be transferred as soon as a bed becomes available. Objective - Vital Signs Vital signs: Vital Signs Temp 98.4 F 11/17/20 10:00 Pulse 72 11/17/20 10:00 Resp 9 L 11/17/20 10:00 BP 103/46 11/17/20 10:00 Pulse Ox 99 11/17/20 10:00 Intake & Output 11/16/20 11/17/20 11/17/20 18:59 06:59 18:59 Intake Total 240 150 Output Total 935 600 Balance -695 450 Intake: IV 240 A-Line 240 Intake, IV Titration 50 Amount ceFAZolin 2 gm In Sodium 50 Chloride 0.9% 50 ml @ 100 mls/hr IVPB Q8HR BIN Rx# :[id number] Oral 100 Output: Drainage 235 120 Left 45 Right 235 75 Urine 700 480 Other: Voiding Method Indwelling Catheter Indwelling Catheter Indwelling Catheter ABP, PAP, CO, CI - Last Documented Arterial Blood Pressure 135/48 - Exam Physical Exam: Revealed a 64-year-old female on room air, in no distress. Head: Atraumatic, normocephalic, HEENT:[Positive pallor, nonicteric, shortness neck, Chest: [Good breath sounds bilaterally, symmetrical chest expansion, no crackles or rhonchi or wheezes Cardiac Exam: Normal S1 and S2, no S3 gallop. No murmur. Abdomen: Obese, [Soft, nontender, no megaly, no rebound, no guarding, normal bowel sounds.] Extremities: [No clubbing, no edema, no cyanosis.] Neurological Exam: Alert and oriented 3 no gross focal deficit. Psychiatric: Normal mood, affect and normal mental status examination. Skin: No cyanosis, no rashes - Labs CBC & Chem 7: 11/16/20 07:31 11/16/20 07:31 Labs: Abnormal Lab Results - Last 24 Hours (Table) 11/16/20 11/16/20 11/16/20 Range/Units 11:44 16:26 18:35 POC Glucose (mg/dL) 182 H 236 H 236 H (75-99) mg/dL 11/16/20 11/17/20 11/17/20 Range/Units 20:54 07:02 11:08 POC Glucose (mg/dL) 210 H 69 L 203 H (75-99) mg/dL Assessment and Plan Assessment: Impression: pseudoarthrosis/lumbar spine. With chronic low back pain and left lower extremity radiculopathy and failure of multiple previous surgeries and medical therapies and physical therapy on this patient. Status post L2p revision decompression and fusion, dural erosion with dural repair, postoperative day #4 Right sided tension pneumothorax, status post right-sided tube thoracostomy and since then the right-sided chest tube was removed yesterday. Postoperative hypotension, secondary to blood loss, patient had 1900 mL of EBL, it is also related to sedation, and also related to tension pneumothorax. Resolved. History of multiple comorbidities including asthma, type 2 diabetes, dysl ipidemia, degenerative joint disease, chronic kidney disease, obstructive sleep apnea syndrome, history of cardiac ablation, AICD placement, and multiple orthopedic surgeries. Recommendation: Continue present supportive care measures Transfer patient out of the ICU to a regular medical floor Continue incentive spirometry Encourage deep coughing and breathing Anticoagulation therapy to be restarted as per cardiology Will follow the patient on when necessary basis. Time with Patient: Less than 30
--- NOTE | 2020-11-17 11:35 | PN ---
PROGRESS NOTE HISTORY: She is still remains in ICU waiting for bed on regular floor. She is she downgraded to 2 L nasal cannula and saturating 98. Blood pressure is low 100s over 40s to 60s, respiratory rate 15 to 16, temp 98.4. Cardiovascular S1, S2. Lungs clear. She is sitting up in a chair. She has 2 drains in the chest, coming out of her back. PHYSICAL EXAM: Cardiovascular S1, S2. Lungs clear. Psych fair mood and affect. ASSESSMENT: 1. Status post lumbar laminectomy. 2. Diabetes mellitus. 3. COPD. 4. CHF. 5. Asthma. 6. Degenerative disk disease. PLAN: Continue current treatment. Insulin to scale. Home medicines. Advanced diet. PT/OT. She will go to [facility] when cleared by Surgery. MMODL / IJN: [id number] /
[2020-11-17 13:12] LABS: Glucose,Whole Blood 192 mg/dL (75-99)
[2020-11-17 17:22] LABS: Glucose,Whole Blood 108 mg/dL (75-99)
[2020-11-17 20:23] LABS: Glucose,Whole Blood 186 mg/dL (75-99)
[2020-11-17 20:25] LABS: Glucose,Whole Blood 170 mg/dL (75-99)
[2020-11-17] MEDS: INSULIN DETEMIR (LEVEMIR) 100 UNIT/ML SYR SQ SCH (20:47)
[2020-11-18] MEDS: HYDROmorphone 0.5 MG/0.5 ML SYRINGE IVP PRN ×6 (02:57→23:33)
[2020-11-18] MEDS: carvediloL 12.5 MG TAB PO SCH ×2 (06:31→17:18)
[2020-11-18] MEDS: INSULIN ASPART (NovoLOG) 100 UNIT/ML VIAL SQ SCH ×7 (06:31→20:42)
[2020-11-18] MEDS: ACETAMINOPHEN TAB 500 MG TAB PO SCH ×4 (06:31→23:33)
[2020-11-18 06:32] LABS: Glucose,Whole Blood 110 mg/dL (75-99)
[2020-11-18] MEDS: FUROSEMIDE 10 MG TAB PO SCH (10:01)
[2020-11-18] MEDS: PANTOPRAZOLE 40 MG/10 ML VIAL IVP SCH (10:01)
[2020-11-18] MEDS: traMADol 50 MG TAB PO SCH ×2 (10:01→20:43)
--- NOTE | 2020-11-18 11:08 | P.PN ---
Subjective Progress Note Date: 11/18/20 Principal diagnosis: Pseudoarthrosis Patient seen and examined this morning. She is doing fairly well. She is sitting up in bed. She has been up in the chair and walking around. She still has her drains in place and there are still putting out. She has Bill in place the Bill out at this time. She has a peroneal numbness or tingling denies any weakness in her legs denies any headache blurred vision double vision nausea vomiting or dizziness at this time states that she is doing fairly well. Objective - Vital Signs Vital signs: Vital Signs Temp 98.6 F 11/18/20 08:00 Pulse 75 11/18/20 08:00 Resp 23 11/18/20 08:00 BP 119/63 11/18/20 08:00 Pulse Ox 94 L 11/18/20 08:00 Intake & Output 11/17/20 11/18/20 11/18/20 18:59 06:59 18:59 Intake Total 270 100 Output Total 70 830 130 Balance -70 -560 -30 Intake: IV 220 A-Line 220 Intake, IV Titration 50 Amount ceFAZolin 2 gm In Sodium 50 Chloride 0.9% 50 ml @ 100 mls/hr IVPB Q8H [facility] Rx#: [id number] Oral 100 Output: Drainage 70 130 130 Left 10 0 0 Right 60 130 130 Urine 700 Other: Voiding Method Indwelling Catheter Indwelling Catheter Indwelling Catheter ABP, PAP, CO, CI - Last Documented Arterial Blood Pressure 135/48 - Exam Exam remains stable she still neurovascularly intact she has good strength in her lower extremities she is getting stronger. Drains still putting out due to her mobility and so we will leave them at this time. Chest tube is out at this time as well and she did well with this. Patient is alert and oriented 3 appears well-nourished well-hydrated is in no acute distress. They does not appear septic. On exam the patient has minor tenderness to palpation around the incision site the dressing is clean and dry at this time. Drains on either side R in place the deep drain on the right-hand side had 130 out since yesterday of serosanguineous sanguinous discharge no clear discharge the left superficial drain had 0. Lower extremities with 4+ out of 5 strength in all major muscle groups. She is able to wiggle her toes pump her ankles up and down and lift her legs out of the bed under her own power at this time he has good strength through being in bed and laying flat Upper extremities show 5/5 strength in all major muscle groups. There is FROM that is painless of the b/l UE and LE in all major joints. They are intact to light touch sensation in L2 to S1 nerve distribution. Patient has palpable dorsalis pedis was posterior tibial pulses. Compartments are soft and compressible. Patient shows a negative Homans, Miguel's, negative Babinski's negative clonus bilaterally. negative straight leg raise bilaterally. No tensioning signs. Cranial nerves II through XII are grossly intact. - Constitutional General appearance: Present: cooperative - Labs CBC & Chem 7: 11/16/20 07:31 11/16/20 07:31 Labs: Abnormal Lab Results - Last 24 Hours (Table) 11/17/20 11/17/20 11/17/20 Range/Units 11:08 13:11 17:21 POC Glucose (mg/dL) 203 H 192 H 108 H (75-99) mg/dL 11/17/20 11/17/20 11/18/20 Range/Units 20:22 20:23 06:30 POC Glucose (mg/dL) 186 H 170 H 110 H (75-99) mg/dL Assessment and Plan Assessment: 64-year-old female postop day 5 L2 to pelvis fusion with T12 to S1 decompression, dural erosion and repair with right-sided tension pneumothorax status post chest tube placement 1. Status post multiple lumbar surgeries with low back pain and lower extremity weakness 2. Pseudoarthrosis L3-S1, incomplete instrumentation 3. Low back pain, LE radiculopathy 4. Neurogenic claudication 5. L3-S1 stenosis 6. Mechanical back pain Plan: -Appreciate managed services sales consultant and team management. Appreciate ICU management. -Trend labs transfuse for vital signs as necessary -Activity: Gradual increase in activity sit to stand sit in chair all meals out of bed she can attempt to ambulate without the brace to go short distances irvin ute she is going to walk and do physical therapy she should have her brace. -Daily PT/OT, increase ambulation strength and balance. -TLSO only when up and walking she may keep it off while seated in chair or laying in bed -Pain control: Adequate at this time -Meds: reviewed, continue with antibiotics -GI ppx: senna, Miralax -DC bill when up and about, bedside commode if needed -DVT PPX: Heparin twice a day -Hygiene: Log roll every 2-3 hours, maintaining good hygiene and clean buttocks and perineal region -Drains: Maintain for now. Record output. DC superficial drain -Encourage IS 10x/hr -Stable for transfer out of the ICU once bed availability -Dispo: Plan for rehab Thursday or Thursday
[2020-11-18] MEDS: CYCLOBENZAPRINE 5 MG TAB PO PRN (11:43)
[2020-11-18 11:47] LABS: Glucose,Whole Blood 138 mg/dL (75-99)
--- NOTE | 2020-11-18 12:16 | P.PN ---
Subjective Progress Note Date: 11/18/20 Principal diagnosis: Status post L2- p fusion with T12 to S1 decompression dural erosion and repair, postoperative day #5 This is a 64-year-old female with history of multiple medical problems including asthma, type 2 diabetes, dyslipidemia, degenerative joint disease, obstructive sleep apnea syndrome, history of chronic bilateral neuropathy, chronic kidney disease stage III, history of chronic low back pain, patient was recently seen by Dr. Meeks and on consultation for chronic back pain. Patient had a myelogram done and Cruz, stephanie patient failed medical therapy for chronic low back pain, she had no bowel or bladder issues. Had a previous lumbar laminectomy in 1986. Lumbar fusion in 2006 and 2018. Lumbar epidural steroid injections on March 23 2020. And she underwent physical therapy in 2019 without any relief. Patient has been complaining of intermittent low back pain for the last 54 years. Pain was associated with radiculopathy to the left leg, worse with sitting or laying down and with stairs. Patient has been chronically on pain medications. Today the patient underwent L2 he revisions decompression and fusion, postoperatively she was noted to have hypotension, metabolic acidosis, estimated blood loss was 1900 mL, received 5200 MLS with Cell Saver 350 ML back. Patient is receiving more blood, she was noted to be hypotensive in spite of all the fluids given, and she was on 0.08 mcg/kg/m of norepinephrine when she arrived to the ICU. Chest x-ray was done as soon as the patient was brought into the ICU, and she had the endotracheal tube noted to be in the right position, however the patient had a large right tension pneumothorax. I was notified about this patient earlier by the surgeon, that she was being admitted to the ICU, and shortly after she arrived to the ICU was notified by the nurse taking care of the patient hence I came in to evaluate the patient, and went ahead and performed a right sided chest tube thoracostomy. Immediate relief of her tension pneumothorax was noted based on follow-up chest x-ray. And slight improvement was noted also and her blood pressure. I have also recommended treatment of her hyperkalemia, patient was acidotic, bicarb was ordered, and I also ordered calcium gluconate, and recommended repeat ABG and possibly repeat potassium in the next hour. Earlier ABG showed a pO2 of 193 pCO2 of 37 pH of 7.19 with a bicarb of 14 and her potassium was 6.4 with BUN of 37 creatinine of 1.33. Blood sugar was also noted to be elevated at 392. And considering her severe metabolic acidosis, I'm recommending that the patient goes an insulin drip. Patient was reevaluated today on 11/14/2020. Patient remains in the ICU, intubated and mechanically ventilated. She is on assist control rate of 20,000 volume is 400 FiO2 45% PEEP of 5. ABG this morning showed a pO2 of 90 pCO2 40 pH of 7.35. Chest x-ray showed catheters and tubes are in the proper positions, minimal atelectasis at the bases, no evidence of active disease, right-sided chest tube remains in the proper position and no evidence of air leak this morning noted in the pleural VAC. Labs showed relatively normal electrolytes bicarb is up to 21 BUN is 41 creatinine is 1.33. Patient remains on insulin drip at 3.5 units per hour. She is on propofol at 50 mcg/kg/m. And no major events overnight. I do plan to wake of the patient today, discontinue propofol, give the patient a weaning trial, and possibly address weaning and extubation. Patient is hemodynamically stable, she is not requiring any pressors today. On 11/16/2020 patient seen in follow-up in the intensive care unit. Yesterday patient was transferred out of intensive care unit however in the evening she developed episode of right upper anterior chest pain, with radiation to the neck. This was accompanied by shortness of breath, earlier in the day her chest tube had been placed to suction. Her vital signs were stable, stat chest x-ray had been obtained to rule out possibility of right-sided pneumothorax, and it showed no evidence of pneumothorax, no new lung parenchymal process. Patient was transferred back to the intensive care unit. She had remained stable, vitals have been stable, her sats were 97% on 2 L. this morning she remains on 2 L of oxygen and her pulse ox is 96%, she denies any sternal chest pain, she is just complaining of the right chest tube insertion site discomfort. She is on 0.9 normal saline at a rate of 20 ML per hour, he is in sinus mechanism, she is sitting up in a chair, this morning's chest x-ray shows possible basilar atelectasis, no evident pneumothorax. The right-sided chest tube had been clamped, and repeat chest x-ray showed stable findings as before. The right- sided chest tube was then discontinued, patient tolerated it well, remains on 2 L of oxygen, she is working on intense per hour, achieving 1.5 L. The rest of blood work has been reviewed, her white count is 7.2, hemoglobin is 8.8, sodium is 141, potassium is 3.9, chloride is 110, B1 is 37, creatinine is 1.25. She remains in sinus mechanism, her amiodarone drip has been discontinued, she has been started on Coreg, she was started on small dose of maintenance Lasix 10 mg daily she is on antibiotics per orthopedic surgery, her incision on her back is draining some serous fluid, she does have a covered with a surgical dressing which is at this time saturated with serous drainage. 2 RENE drains with small amount of serosanguineous output, compressed and draining Patient was reevaluated today on 11/17/2020, remains in the intensive care unit as an overflow, patient is doing well, she is on room air, O2 sats is 92%. Patient is doing well with incentive spirometry and achieving 1250 mL patient had a follow-up chest x-ray this morning, there is no evidence of pneumothorax, and the right lung is fully expanded. Patient is relatively asymptomatic, labs including CBC and basic metabolic profile noted to be normal. Renal functioning improved creatinine down to 1.25. Overall the patient is doing great, and I will arrange for the patient to be transferred as soon as a bed becomes available. Reevaluated today on 11/18/2020, patient remains in the ICU as an overflow, patient is doing well, denies any shortness of breath cough or wheezing, patient denies any weakness in her legs, denies any headaches or blurred vision, she is hemodynamically stable, and her chest x-ray from yesterday showed complete reexpansion of the lung, and no pneumothorax. Patient continues to have RENE drains from her surgery, and that is being addressed by orthopedics on the case. My recommendation today is to transfer the patient out of the ICU to a regular medical floor, she has proven to have hemodynamic stability, and no significant arrhythmia. Objective - Vital Signs Vital signs: Vital Signs Temp 98.4 F 11/18/20 12:00 Pulse 54 L 11/18/20 12:00 Resp 14 11/18/20 12:00 BP 123/64 11/18/20 12:00 Pulse Ox 94 L 11/18/20 12:00 Intake & Output 11/17/20 11/18/20 11/18/20 18:59 06:59 18:59 Intake Total 270 100 Output Total 70 830 130 Balance -70 -560 -30 Intake: IV 220 A-Line 220 Intake, IV Titration 50 Amount ceFAZolin 2 gm In Sodium 50 Chloride 0.9% 50 ml @ 100 mls/hr IVPB Q8H [facility] Rx#: [id number] Oral 100 Output: Drainage 70 130 130 Left 10 0 0 Right 60 130 130 Urine 700 Other: Voiding Method Indwelling Catheter Indwelling Catheter Indwelling Catheter ABP, PAP, CO, CI - Last Documented Arterial Blood Pressure 135/48 - Exam Physical Exam: Revealed a 64-year-old female on room air, in no distress. Head: Atraumatic, normocephalic, HEENT:[Positive pallor, nonicteric, shortness neck, Chest: [Good breath sounds bilaterally, symmetrical chest expansion, no crackles or rhonchi or wheezes, continues to have stitches in place from right-sided chest tube insertion, Cardiac Exam: Normal S1 and S2, no S3 gallop. No murmur. Abdomen: Obese, [Soft, nontender, no megaly, no rebound, no guarding, normal bowel sounds.] Extremities: [No clubbing, no edema, no cyanosis.] Neurological Exam: Alert and oriented 3 no gross focal deficit. Psychiatric: Normal mood, affect and normal mental status examination. Skin: No cyanosis, no rashes - Labs CBC & Chem 7: 11/16/20 07:31 11/16/20 07:31 Labs: Abnormal Lab Results - Last 24 Hours (Table) 11/17/20 11/17/20 11/17/20 Range/Units 13:11 17:21 20:22 POC Glucose (mg/dL) 192 H 108 H 186 H (75-99) mg/dL 11/17/20 11/18/20 11/18/20 Range/Units 20:23 06:30 11:44 POC Glucose (mg/dL) 170 H 110 H 138 H (75-99) mg/dL Assessment and Plan Assessment: Impression: pseudoarthrosis/lumbar spine. With chronic low back pain and left lower extremity radiculopathy and failure of multiple previous surgeries and medical therapies and physical therapy on this patient. Status post L2p revision decompression and fusion, dural erosion with dural repair, postoperative day #5 Right sided tension pneumothorax, status post right-sided tube thoracostomy and since then the right-sided chest tube was removed 2 days ago. Postoperative hypotension, secondary to blood loss, patient had 1900 mL of EBL, it is also related to sedation, and also related to tension pneumothorax. Resolved. History of multiple comorbidities including asthma, type 2 diabetes, dyslipidemia, degenerative joint disease, chronic kidney disease, obstructive sleep apnea syndrome, history of cardiac ablation, AICD placement, and multiple orthopedic surgeries. Recommendation: Transfer patient to a regular medical floor. Continue incentive spirometer. Patient to have her stitches removed by the nurse prior to discharge to rehab in the next couple of days. Continue present supportive care measures Cleared to be transferred out of the ICU once a bed is available. We'll see the patient on when necessary basis Time with Patient: Less than 30
[2020-11-18 17:26] LABS: Glucose,Whole Blood 151 mg/dL (75-99)
[2020-11-18 20:43] LABS: Glucose,Whole Blood 130 mg/dL (75-99)
[2020-11-18] MEDS: INSULIN DETEMIR (LEVEMIR) 100 UNIT/ML SYR SQ SCH (20:54)
[2020-11-19] MEDS: HYDROmorphone 0.5 MG/0.5 ML SYRINGE IVP PRN ×5 (02:48→22:03)
[2020-11-19 04:49] LABS: Anisocytosis Slight; Basophils % (A) 0 %; Eosinophils # (A) 0.2 k/uL (0-0.7); Eosinophils % (A) 4 %; HCT 24.8 % (34.0-46.0); HGB 8.4 gm/dL (11.4-16.0); Lymphocytes # (A) 1.2 k/uL (1.0-4.8); Lymphocytes % (A) 24 %; MCH 31.1 pg (25.0-35.0); MCHC 33.8 g/dL (31.0-37.0); MCV 91.9 fL (80.0-100.0); Mean Platelet Volume 8.2; Monocytes # (A) 0.3 k/uL (0-1.0); Monocytes % (A) 6 %; Neutrophils # (A) 3.3 k/uL (1.3-7.7); Neutrophils % (A) 64 %; Platelet Count 91 k/uL (150-450); Poikilocytosis Slight; RBC 2.69 m/uL (3.80-5.40); RDW 16.6 % (11.5-15.5); WBC 5.1 k/uL (3.8-10.6)
[2020-11-19 05:14] LABS: Albumin 2.4 g/dL (3.5-5.0); Calcium 8.2 mg/dL (8.4-10.2); Potassium 4.3 mmol/L (3.5-5.1); Total Bilirubin 0.5 mg/dL (0.2-1.3); Total Protein 4.3 g/dL (6.3-8.2)
[2020-11-19] MEDS: ACETAMINOPHEN TAB 500 MG TAB PO SCH ×3 (05:50→17:50)
[2020-11-19 06:48] LABS: Glucose,Whole Blood 87 mg/dL (75-99)
[2020-11-19] MEDS: carvediloL 12.5 MG TAB PO SCH ×2 (06:54→17:50)
[2020-11-19] MEDS: INSULIN ASPART (NovoLOG) 100 UNIT/ML VIAL SQ SCH ×7 (06:54→20:23)
[2020-11-19] MEDS: PANTOPRAZOLE 40 MG/10 ML VIAL IVP SCH (08:17)
[2020-11-19] MEDS: traMADol 50 MG TAB PO SCH ×2 (08:17→20:16)
[2020-11-19] MEDS: FUROSEMIDE 10 MG TAB PO SCH (08:18)
[2020-11-19 11:39] LABS: Glucose,Whole Blood 198 mg/dL (75-99)
--- NOTE | 2020-11-19 13:32 | P.DS ---
Providers Date of admission: 11/13/20 19:14 Expected date of discharge: 11/19/20 Attending physician: Jomar Meeks DO Consults: 11/14/20 07:42 Consult Physician Routine Consulting Provider: Dayami Desouza Reason/Comments: icu management Do you want consulting provider notified?: Already Contacted 11/14/20 07:45 Consult Physician Routine Consulting Provider: Vishal Snell Reason/Comments: medical management Do you want consulting provider notified?: Yes [facility] Course: Date of admission: 11/13/2020 Date of discharge: 11/19/2020 Admission diagnosis: Pseudoarthrosis L3, L4 with incomplete instrumentation; L5- S1 likely pseudoarthrosis; L4-L5 adjacent segment disease; neurogenic claudication; lower extremity radiculopathy; large dural erosion, >4 cm Discharge diagnosis: Same Attending physician: Dr. Meeks Surgical procedures: Exploration of fusion, L3-L4 and L5-S1; removal of hardware, L3-L4, L5-S1; re-instrumentation L2 to pelvis; L2- pelvis posterior lateral instrumented fusion; L4-L5 interbody fusion Brief history: Patient is a with a history of neurogenic claudication, lower extremity radiculopathy and lower extremity weakness. At this point patient has failed conservative treatment measures and has opted to proceed with a elective Exploration of fusion, L3-L4 and L5-S1; removal of hardware, L3-L4 L5-S1; reach mentation L2 to pelvis; L2- pelvis posterior lateral instrumented fusion; L4-L5 interbody fusion. Hospital course: Details of patient's surgery can be found in operative report. Patient tolerated the procedure well and was subsequently transported to orthopedic floor. Patient's orthopeidc and medical care was provided daily. Patient had daily laboratory tests performed for evaluation of overall blood counts. Patient had daily physical therapy to include strengthening range of motion as well as education with walker ambulation. Patient was noted to have a relatively uneventful postoperative course. Patient reported satisfactory pain control with oral pain medications by postoperative day 6. Patient showed satisfactory progress with physical therapy. Patient moved steadily through the program and had no difficulty meeting the goals by postoperative day 6. Given patient's otherwise satisfactory course and having met physical therapy goals, plan is to discharge patient rehab on postoperative day 6. Discharge condition/disposition: Patient will be discharged to rehab in stable condition. Discharge medications: Instructions are given on resumption of patient's normal daily medications per primary care recommendation, in addition patient will be prescribed . Spine Discharge and Recovery Instructions Medications: See medication list All medication refills should be obtained through your primary care doctor or your clinic spine surgeon. Please discuss prescription refills at your follow up appointment. Do not call the hospital for medication refills. Dressing: Leave your dressing in place for a total of 5 days post operatively. Then you may remove your dressing and leave open to air. Keep the area clean and if not able to keep area clean, then cover with sterile gauze and tape. Showering: You may shower 3 days after your procedure allowing soap and water to run over incision. Do not scrub. Do not soak. Blot dry. Follow up: Please confirm a follow up appointment with your surgeon 3 weeks post operatively. Please make an appointment to follow up with your PCP in 1-2 weeks after surgery for evaluation 3 phase, 3-week plan POST OP WEEKS 1-3 1. Lifting/carrying/pushing/pulling limited to less than 5 pounds. 2. Do not sit for longer than 15 minutes at one time. Get up and walk around. Prolonged sitting is NOT advised. If you lay down, see if you can tolerate laying down on you front (belly side) 3. Walk for periods of 15 minutes = 1 mile but no longer; do it multiple times times each day. 4. Ice your low back after activity. POST OP WEEKS 3-6 1. Lifting limited to less than 20 pounds. 2. Do not sit for longer than 30 minutes at a time. Frequently change positions. Use a sit-to stand workstation or take frequent breaks from sitting if you have returned to work. 3. Walk for 30 minutes each day. If possible, do these three or more times a day POST OP WEEKS 6+ At your 6-week appointment we will give you a physical therapy referral to focus on a core stabilization and strengthening program. You should also work on leg & buttock strengthening, hamstring & quadriceps stretching, and continue a low impact aerobic activity program such as swimming, walking, or riding a stationary bicycle. During the initial 6 weeks after your surgery, you are at the highest risk of re-injuring your spine. You should generally avoid BLTs (bending, lifting and twisting combination motions) and follow the above guidelines to reduce the chance of reinjury. You can anticipate post op appointments in our office at approximately 3 weeks and 6 weeks after your surgery. INCISION CARE: If your incision is not draining you do NOT need to cover it with a dressing. Keep your incision clean, dry and intact. In most cases, we apply skin glue, mana or sutures to the incision at the time of surgery. This will be like a crust or have the appearance of a scab and will fall off in time on its own. The stitches or mana need to be removed at 3 weeks post op appointment. You may begin to shower 3 days after surgery (this allows the glue to wahl well). However, please avoid scrubbing the incision site or peeling off any of the skin glue. This will ensure optimal healing of your incision. Also, during this time avoid soaking the incision area in water - this includes swimming pools, hot tubs or baths. No ointments, lotions or oils on the incision until your surgeon allows. Leave mana, sutures or glue in place. Neurological dysfunction that comes on suddenly can also be a sign of a stroke. Below some common symptoms of a stroke are listed: B - balance difficulty such as sudden onset walking or leaning to one side - NEW E - eye problem such as sudden double vision or trouble seeing on one side - NEW F - Facial weakness or numbness on one side - NEW A - Arm or leg weakness or numbness on one side - NEW S - Slurred speech or difficulty with word finding - NEW T - Time is BRAIN! Call 911 as soon as you recognize these symptoms Diet: Consume a regular diet rich in vegetables and lean protein such as chicken or fish. You should consume in a ratio of approximately 20% fats|40% carbohydrates|40%protein. Vegetables, sweet potatoes, brown rice or quinoa are examples of good carbohydrates. Chips, white bread, cookies and sweets/sugar are examples of bad carbohydrates. Limit your bad carbs, go wild with good carbs. "Life's Simple 7" Guidelines as per [place] [employer] These will help you reclaim your life after surgery and shipping room helper in your recovery, keeping in mind your restrictions. (1) Get Active. Physical activity can help people lose weight, control high blood pressure and cholesterol, feel emotionally better, and sleep better. (2) Control Cholesterol. Avoid a diet high in saturated fat, trans fat, & cholesterol. Limit whole milk & cream, ice cream, butter, egg yolks, processed meats (like sausage and hot dogs), and fatty meats. Choose healthy foods that are low in saturated fat, trans fat and cholesterol which include: Fruits and vegetables, fiber rich grain products (like whole grain pasta and brown rice), lean meat such as chicken, fish, nuts, seeds, and legumes. (3) Eat Better. Eat small portions. Shop at the grocery with a list and do not stray from it. Tips for a healthy diet include: Limit sodium intake to less than 1500mg daily, avoid prepackaged, processed, and fast foods, choose a diet rich in fruits, vegetables, and whole grain, high fiber foods, and limit saturated & cholesterol in your diet. (4) Manage Blood Pressure. If you have high blood pressure, you should have a cuff at home so that you can check your blood pressure regularly. Be sure you have a good cuff. An arm one is generally better than a wrist one. Bring the cuff to a doctor's appointment to validate that the measurements that your cuff are taking are accurate. Take your blood pressure twice daily when you are sitting down and relaxing. Record the numbers in a log and bring this log with you to your doctors' appointments. (5) Lose Weight if your BMI is above 25. A healthy BMI is between 19-25. To calculate Your BMI, you may use a Standard BMI Calculator on the NIH BMI website: <www.nhlbi.nih.gov/guidelines/obesity/BMI/bmicalc.htm>. Weigh oneself daily. If you are overweight, set a goal to lose weight. A pound a week loss if needed is a good target. (6) Reduce Blood Sugar. Limit foods and liquids with "added sugars." (Added sugars include sucrose, fructose, glucose, maltose, dextrose, high fructose corn syrup, corn syrup, concentrated fruit juice and honey). (7) Stop Smoking. If you smoke, quitting smoking is one of the best things that you can do for your health. Smoking increases your risk of heart attack, stroke, and peripheral vascular disease, which is a build-up of plaque in your arteries. Please discard all the cigarettes and lighters in your house. Have a plan for what you will do when you have the urge to smoke. Direct and second- hand smoke shortens your life as well as the lives of your family, friends and others around you. For your health and the health of those around you, please consider quitting! Proper Bending Body Mechanics: Maintain a wide stance with one foot slightly in front of the other. Keep your back straight. Bend utilizing the strength in your hips and knees. Do not bend at the waist. Maintain the lifted object at your waist-level close to your body. Avoid lifting weight that causes immediately pain or pain anywhere in the body afterwards. Smoking/Nicotine If there was ever one thing that you could do to increase your overall health, decrease your risk of cardiovascular problems by about 39% the second you make the choice, it is to STOP SMOKING. Your body's most instant gratification is the second you stop smoking. We have all heard the studies, read the articles but it is true, smoking is extremely bad for your overall health, and moreover it is detrimental to your bone health. Nicotine, IN ANY FORM, kills bone cells, prevents your body from healing fractures, and significantly prolongs healing after surgery. In spine surgery specifically, it increases your risk of not healing your bones to create a fusion and increases your risk of having a revision surgery due to this up to 60%. I know it is hard. I know it feels impossible. But there are ways. Take control of your life. We are here to help you through it. And when you are ready, ask us and we can direct you to help if you desire. Use the START Plan to Quit Smoking (please visit the [employer] website listed below for more information): S = Set a quit date. Choose a date within the next 2 weeks, so you have enough time to prepare without losing your motivation to quit. If you mainly smoke at work, quit on the weekend, so you have a few days to adjust to the change. T = Tell family, friends, and co-workers that you plan to quit. Let your friends and family in on your plan to quit smoking and tell them you need their support and encouragement to stop. Look for a quit jessica who wants to stop smoking as well. You can help each other get through the rough times. A = Anticipate and plan for the challenges you'll face while quitting. Most people who begin smoking again do so within the first 3 months. You can help yourself make it through by preparing ahead for common challenges, such as nicotine withdrawal and cigarette cravings. R = Remove cigarettes and other tobacco products from your home, car, and work. Throw away all your cigarettes (no emergency pack!), lighters, ashtrays, and matches. Wash your clothes and freshen up anything that smells like smoke. Shampoo your car, clean your drapes and carpet, and steam your furniture. T = Talk to your doctor about getting help to quit. Your doctor can prescribe medication to help with withdrawal and suggest other alternatives. If you can't see a doctor, you can get many products over the counter at your local pharmacy or grocery store, including the nicotine patch, nicotine lozenges, and nicotine gum. Resources for Quitting Smoking: <https://www.[place].gov/documents/[facility]/Quit_Tobacco_Resources_for_patients_313 480_7.pdf> Supplementation: Take recommended dosages of Vitamin D and Calcium to help fortify your bones and help them to heal. See your health maintenance packet for dosages and recommended levels. DVT/VTE prophylaxis: You will be given compression stockings from the hospital. Wear these daily for the first two weeks after surgery. You may take them off at night. You may be prescribed a medication to help thin your blood. Take this as directed. If you are not prescribed this medication, early and frequent ambulation has been shown to be the best prophylaxis to deep vein thrombosis and sequelae related to this event. Assessment: Pseudoarthrosis L3, L4 with incomplete instrumentation; L5-S1 likely pseudoart hrosis; L4-L5 adjacent segment disease; neurogenic claudication; lower extremity radiculopathy; large dural erosion, >4 cm Procedures: Exploration of fusion, L3-L4 and L5-S1; removal of hardware, L3-L4, L5-S1; re- instrumentation L2 to pelvis; L2- pelvis posterior lateral instrumented fusion; L4-L5 interbody fusion Patient Condition at Discharge: Good Plan - Discharge Summary Discharge Rx Participant: No New Discharge Prescriptions: New Cyclobenzaprine [Flexeril] 5 mg PO BID #30 tablet Sennosides [Senna] 8.6 mg PO DAILY PRN #30 tablet PRN Reason: Constipation oxyCODONE HCL [OxyIR] 10 mg PO Q4H PRN #20 tab PRN Reason: Pain Acetaminophen Tab [Tylenol Tab] 1,000 mg PO Q6HR #24 tablet cefaDROXiL [Duricef] 1 gm PO DAILY #5 tablet No Action Aspirin EC [Ecotrin Low Dose] 81 mg PO HS Montelukast [Singulair] 10 mg PO HS Spironolactone [Aldactone] 12.5 mg PO DAILY Atorvastatin [Lipitor] 20 mg PO HS Carvedilol [Coreg] 12.5 mg PO BID tiZANidine [Zanaflex] 4 mg PO HS Topiramate [Topamax] 50 mg PO HS Iron 28mg 28 mg PO DAILY Meclizine [Antivert] 12.5 mg PO Q12H PRN PRN Reason: VERTIGO calcitrioL [Rocaltrol] 0.25 mcg PO NORRIS Furosemide [Lasix] 10 mg PO DAILY Docusate [Colace] 100 mg PO Q48H Midodrine [ProAmatine] 5 mg PO TID Cyclobenzaprine [Flexeril] 5 mg PO BID PRN PRN Reason: MUSCLE SPASM Budesonide [Pulmicort Flexhaler] 2 puff INHALATION RT-BID Ergocalciferol [Vitamin D2 (DRISDOL)] 50,000 unit PO Q28D Insulin Lispro [humaLOG Kwikpen] 15 unit SQ TID-W/MEALS Insulin Glargine,Hum.rec.anlog [Lantus Solostar Pen] 40 unit SQ HS Magnesium Oxide [Shaikh] 1,500 mg PO HS Albuterol Sulfate [Ventolin HFA] 2 puff INHALATION QID PRN PRN Reason: sob traMADol HCL 50 mg PO Q12HR PRN PRN Reason: Pain HYDROcodone/APAP 10-325MG [[place] 10-325] 1 tab PO Q6HR PRN PRN Reason: Pain Dupilumab [Dupixent Syringe] 300 mg SQ Q14D Discharge Medication List Aspirin EC [Ecotrin Low Dose] 81 mg PO HS 11/02/18 [History] Montelukast [Singulair] 10 mg PO HS 11/02/18 [History] Spironolactone [Aldactone] 12.5 mg PO DAILY 11/02/18 [History] Atorvastatin [Lipitor] 20 mg PO HS 09/05/19 [History] Carvedilol [Coreg] 12.5 mg PO BID 09/05/19 [History] Iron 28mg 28 mg PO DAILY 09/05/19 [History] Meclizine [Antivert] 12.5 mg PO Q12H PRN 09/05/19 [History] Topiramate [Topamax] 50 mg PO HS 09/05/19 [History] tiZANidine [Zanaflex] 4 mg PO HS 09/05/19 [History] Furosemide [Lasix] 10 mg PO DAILY 12/06/19 [History] calcitrioL [Rocaltrol] 0.25 mcg PO NORRIS 12/06/19 [History] Budesonide [Pulmicort Flexhaler] 2 puff INHALATION RT-BID 02/09/20 [History] Cyclobenzaprine [Flexeril] 5 mg PO BID PRN 02/09/20 [History] Docusate [Colace] 100 mg PO Q48H 02/09/20 [History] Ergocalciferol [Vitamin D2 (DRISDOL)] 50,000 unit PO Q28D 02/09/20 [History] Insulin Glargine,Hum.rec.anlog [Lantus Solostar Pen] 40 unit SQ HS 02/09/20 [History] Insulin Lispro [humaLOG Kwikpen] 15 unit SQ TID-W/MEALS 02/09/20 [History] Magnesium Oxide [Shaikh] 1,500 mg PO HS 02/09/20 [History] Midodrine [ProAmatine] 5 mg PO TID 02/09/20 [History] Albuterol Sulfate [Ventolin HFA] 2 puff INHALATION QID PRN 04/20/20 [History] traMADol HCL 50 mg PO Q12HR PRN 04/20/20 [History] Dupilumab [Dupixent Syringe] 300 mg SQ Q14D 07/25/20 [History] HYDROcodone/APAP 10-325MG [[place] 10-325] 1 tab PO Q6HR PRN 09/06/20 [History] Acetaminophen Tab [Tylenol Tab] 1,000 mg PO Q6HR #24 tablet 11/19/20 [Rx] Cyclobenzaprine [Flexeril] 5 mg PO BID #30 tablet 11/19/20 [Rx] Sennosides [Senna] 8.6 mg PO DAILY PRN #30 tablet 11/19/20 [Rx] cefaDROXiL [Duricef] 1 gm PO DAILY #5 tablet 11/19/20 [Rx] oxyCODONE HCL [OxyIR] 10 mg PO Q4H PRN #20 tab 11/19/20 [Rx] Follow up Appointment(s)/Referral(s): Saurav Duval [NON-STAFF] - As Needed (Supplier of TLSO brace) Activity/Diet/Wound Care/Special Instructions: Spine Discharge and Recovery Instructions Date of Surgery: 11/13/2020 Diagnosis: Pseudoarthrosis L3, L4 with incomplete instrumentation; L5-S1 likely pseudoarthrosis; L4-L5 adjacent segment disease; neurogenic claudication; lower extremity radiculopathy; large dural erosion, >4 cm Procedure: Exploration of fusion, L3-L4 and L5-S1; removal of hardware, L3-L4, L5-S1; re- instrumentation L2 to pelvis; L2- pelvis posterior lateral instrumented fusion; L4-L5 interbody fusion Medications: See medication list All medication refills should be obtained through your primary care doctor or your clinic spine surgeon. Please discuss prescription refills at your follow up appointment. Do not call the hospital for medication refills. Dressing: Leave your dressing in place for a total of 5 days post operatively. Then you may remove your dressing and leave open to air. Keep the area clean and if not able to keep area clean, then cover with sterile gauze and tape. Showering: You may shower 3 days after your procedure allowing soap and water to run over incision. Do not scrub. Do not soak. Blot dry. Follow up: Please confirm a follow up appointment with your surgeon 3 weeks post operatively. Please make an appointment to follow up with your PCP in 1-2 weeks after surgery for evaluation 3 phase, 3-week plan POST OP WEEKS 1-3 1. Lifting/carrying/pushing/pulling limited to less than 5 pounds. 2. Do not sit for longer than 15 minutes at one time. Get up and walk around. Prolonged sitting is NOT advised. If you lay down, see if you can tolerate laying down on you front (belly side) 3. Walk for periods of 15 minutes = 1 mile but no longer; do it multiple times times each day. 4. Ice your low back after activity. POST OP WEEKS 3-6 1. Lifting limited to less than 20 pounds. 2. Do not sit for longer than 30 minutes at a time. Frequently change positions. Use a sit-to stand workstation or take frequent breaks from sitting if you have returned to work. 3. Walk for 30 minutes each day. If possible, do these three or more times a day POST OP WEEKS 6+ At your 6-week appointment we will give you a physical therapy referral to focus on a core stabilization and strengthening program. You should also work on leg & buttock strengthening, hamstring & quadriceps stretching, and continue a low impact aerobic activity program such as swimming, walking, or riding a stationary bicycle. During the initial 6 weeks after your surgery, you are at the highest risk of re-injuring your spine. You should generally avoid BLTs (bending, lifting and twisting combination motions) and follow the above guidelines to reduce the chance of reinjury. You can anticipate post op appointments in our office at approximately 3 weeks and 6 weeks after your surgery. INCISION CARE: If your incision is not draining you do NOT need to cover it with a dressing. Keep your incision clean, dry and intact. In most cases, we apply skin glue, mana or sutures to the incision at the time of surgery. This will be like a crust or have the appearance of a scab and will fall off in time on its own. The stitches or mana need to be removed at 3 weeks post op appointment. You may begin to shower 3 days after surgery (this allows the glue to wahl well). However, please avoid scrubbing the incision site or peeling off any of the skin glue. This will ensure optimal healing of your incision. Also, during this time avoid soaking the incision area in water - this includes swimming pools, hot tubs or baths. No ointments, lotions or oils on the incision until your surgeon allows. Leave mana, sutures or glue in place. Neurological dysfunction that comes on suddenly can also be a sign of a stroke. Below some common symptoms of a stroke are listed: B - balance difficulty such as sudden onset walking or leaning to one side - NEW E - eye problem such as sudden double vision or trouble seeing on one side - NEW F - Facial weakness or numbness on one side - NEW A - Arm or leg weakness or numbness on one side - NEW S - Slurred speech or difficulty with word finding - NEW T - Time is BRAIN! Call 911 as soon as you recognize these symptoms Diet: Consume a regular diet rich in vegetables and lean protein such as chicken or fish. You should consume in a ratio of approximately 20% fats|40% carbohydrates|40%protein. Vegetables, sweet potatoes, brown rice or quinoa are examples of good carbohydrates. Chips, white bread, cookies and sweets/sugar are examples of bad carbohydrates. Limit your bad carbs, go wild with good carbs. "Life's Simple 7" Guidelines as per [place] [employer] These will help you reclaim your life after surgery and shipping room helper in your recovery, keeping in mind your restrictions. (1) Get Active. Physical activity can help people lose weight, control high blood pressure and cholesterol, feel emotionally better, and sleep better. (2) Control Cholesterol. Avoid a diet high in saturated fat, trans fat, & cholesterol. Limit whole milk & cream, ice cream, butter, egg yolks, processed meats (like sausage and hot dogs), and fatty meats. Choose healthy foods that are low in saturated fat, trans fat and cholesterol which include: Fruits and vegetables, fiber rich grain products (like whole grain pasta and brown rice), lean meat such as chicken, fish, nuts, seeds, and legumes. (3) Eat Better. Eat small portions. Shop at the grocery with a list and do not stray from it. Tips for a healthy diet include: Limit sodium intake to less than 1500mg daily, avoid prepackaged, processed, and fast foods, choose a diet rich in fruits, vegetables, and whole grain, high fiber foods, and limit saturated & cholesterol in your diet. (4) Manage Blood Pressure. If you have high blood pressure, you should have a cuff at home so that you can check your blood pressure regularly. Be sure you have a good cuff. An arm one is generally better than a wrist one. Bring the cuff to a doctor's appointment to validate that the measurements that your cuff are taking are accurate. Take your blood pressure twice daily when you are sitting down and relaxing. Record the numbers in a log and bring this log with you to your doctors' appointments. (5) Lose Weight if your BMI is above 25. A healthy BMI is between 19-25. To calculate Your BMI, you may use a Standard BMI Calculator on the NIH BMI website: <www.nhlbi.nih.gov/guidelines/obesity/BMI/bmicalc.htm>. Weigh oneself daily. If you are overweight, set a goal to lose weight. A pound a week loss if needed is a good target. (6) Reduce Blood Sugar. Limit foods and liquids with "added sugars." (Added sugars include sucrose, fructose, glucose, maltose, dextrose, high fructose corn syrup, corn syrup, concentrated fruit juice and honey). (7) Stop Smoking. If you smoke, quitting smoking is one of the best things that you can do for your health. Smoking increases your risk of heart attack, stroke, and peripheral vascular disease, which is a build-up of plaque in your arteries. Please discard all the cigarettes and lighters in your house. Have a plan for what you will do when you have the urge to smoke. Direct and second- hand smoke shortens your life as well as the lives of your family, friends and others around you. For your health and the health of those around you, please consider quitting! Proper Bending Body Mechanics: Maintain a wide stance with one foot slightly in front of the other. Keep your back straight. Bend utilizing the strength in your hips and knees. Do not bend at the waist. Maintain the lifted object at your waist-level close to your body. Avoid lifting weight that causes immediately pain or pain anywhere in the body afterwards. Smoking/Nicotine If there was ever one thing that you could do to increase your overall health, decrease your risk of cardiovascular problems by about 39% the second you make the choice, it is to STOP SMOKING. Your body's most instant gratification is th second you stop smoking. We have all heard the studies, read the articles but it is true, smoking is extremely bad for your overall health, and moreover it is detrimental to your bone health. Nicotine, IN ANY FORM, kills bone cells, prevents your body from healing fractures, and significantly prolongs healing after surgery. In spine surgery specifically, it increases your risk of not healing your bones to create a fusion and increases your risk of having a revision surgery due to this up to 60%. I know it is hard. I know it feels impossible. But there are ways. Take con trol of your life. We are here to help you through it. And when you are ready, ask us and we can direct you to help if you desire. Use the START Plan to Quit Smoking (please visit the Helpguide.org website listed below for more information): S = Set a quit date. Choose a date within the next 2 weeks, so you have enough time to prepare without losing your motivation to quit. If you mainly smoke at work, quit on the weekend, so you have a few days to adjust to the change. T = Tell family, friends, and co-workers that you plan to quit. Let your friends and family in on your plan to quit smoking and tell them you need their support and encouragement to stop. Look for a quit jessica who wants to stop smoking as well. You can help each other get through the rough times. A = Anticipate and plan for the challenges you'll face while quitting. Most people who begin smoking again do so within the first 3 months. You can help yourself make it through by preparing ahead for common challenges, such as nicotine withdrawal and cigarette cravings. R = Remove cigarettes and other tobacco products from your home, car, and work. Throw away all your cigarettes (no emergency pack!), lighters, ashtrays, and matches. Wash your clothes and freshen up anything that smells like smoke. Shampoo your car, clean your drapes and carpet, and steam your furniture. T = Talk to your doctor about getting help to quit. Your doctor can prescribe medication to help with withdrawal and suggest other alternatives. If you can't see a doctor, you can get many products over the counter at your local pharmacy or grocery store, including the nicotine patch, nicotine lozenges, and nicotine gum. Resources for Quitting Smoking: <https://www.[place].gov/documents/[facility]/Quit _Tobacco_Resources_for_patients_313480_7.pdf> Supplementation: Take recommended dosages of Vitamin D and Calcium to help fortify your bones and help them to heal. See your health maintenance packet for dosages and recommended levels. DVT/VTE prophylaxis: You will be given compression stockings from the hospital. Wear these daily for the first two weeks after surgery. You may take them off at night. You may be prescribed a medication to help thin your blood. Take this as directed. If you are not prescribed this medication, early and frequent ambulation has been shown to be the best prophylaxis to deep vein thrombosis and sequelae related to this event. Discharge Disposition: TRANSFER TO SNF/ECF
[2020-11-19 16:45] LABS: Glucose,Whole Blood 140 mg/dL (75-99)
[2020-11-19] MEDS: CYCLOBENZAPRINE 5 MG TAB PO PRN (20:16)
[2020-11-19] MEDS: INSULIN DETEMIR (LEVEMIR) 100 UNIT/ML SYR SQ SCH (20:16)
[2020-11-19 20:17] LABS: Glucose,Whole Blood 159 mg/dL (75-99)
[2020-11-20] MEDS: ACETAMINOPHEN TAB 500 MG TAB PO SCH ×5 (00:04→23:31)
[2020-11-20] MEDS: HYDROmorphone 0.5 MG/0.5 ML SYRINGE IVP PRN ×4 (01:10→16:24)
[2020-11-20 03:58] LABS: Anisocytosis Slight; Basophils % (A) 0 %; Eosinophils # (A) 0.2 k/uL (0-0.7); Eosinophils % (A) 3 %; HCT 24.6 % (34.0-46.0); HGB 8.4 gm/dL (11.4-16.0); Lymphocytes # (A) 1.2 k/uL (1.0-4.8); Lymphocytes % (A) 20 %; MCHC 34.1 g/dL (31.0-37.0); Mean Platelet Volume 8.5; Monocytes # (A) 0.4 k/uL (0-1.0); Monocytes % (A) 6 %; Neutrophils # (A) 4.1 k/uL (1.3-7.7); Neutrophils % (A) 69 %; Poikilocytosis Slight; RBC 2.62 m/uL (3.80-5.40); RDW 16.1 % (11.5-15.5); WBC 5.9 k/uL (3.8-10.6)
[2020-11-20 04:13] LABS: Albumin 2.5 g/dL (3.5-5.0); Calcium 8.3 mg/dL (8.4-10.2); Potassium 4.2 mmol/L (3.5-5.1); Total Bilirubin 0.5 mg/dL (0.2-1.3); Total Protein 4.5 g/dL (6.3-8.2)
[2020-11-20 04:30] LABS: Platelet Count 84 k/uL (150-450)
[2020-11-20 05:56] LABS: Glucose,Whole Blood 100 mg/dL (75-99)
[2020-11-20] MEDS: INSULIN ASPART (NovoLOG) 100 UNIT/ML VIAL SQ SCH ×4 (05:57→20:19)
--- NOTE | 2020-11-20 06:16 | PN ---
PROGRESS NOTE 65-year-old white female who has had a little bit of low blood sugars today. She is status post lumbar laminectomy. Waiting for rehab placement. Pain medicines have been given. She takes Levemir at night. We are going to take her off her regular units she takes with her meals due to hyperglycemia as per on sliding scale until her diet improves. Her diet is not improving. She is lying comfortably in bed. Temp 98.6, pulse 64, respiratory 18-24, blood pressure 117 to 130s over 70s. Cardiovascular S1, S2. Lungs clear. GI soft. Musculoskeletal: She can move her 4 extremities. ASSESSMENT: 1. Status post lumbar laminectomy. 2. Diabetes mellitus. 3. Congestive heart failure. 4. Chronic obstructive pulmonary disease. Prognosis is guarded. Accu-Chek protocol only with Lantus. No extra units with meals until her diet improves. Continue current treatment. Await for [facility]. MMODL / IJN: [id number] /
[2020-11-20] MEDS: CYCLOBENZAPRINE 5 MG TAB PO PRN (06:26)
[2020-11-20] MEDS: carvediloL 12.5 MG TAB PO SCH ×2 (06:26→17:13)
[2020-11-20] MEDS: FUROSEMIDE 10 MG TAB PO SCH (08:04)
[2020-11-20] MEDS: PANTOPRAZOLE 40 MG/10 ML VIAL IVP SCH (08:04)
[2020-11-20] MEDS: traMADol 50 MG TAB PO SCH ×2 (08:04→20:10)
--- NOTE | 2020-11-20 09:02 | P.PN ---
Subjective Progress Note Date: 11/19/20 Principal diagnosis: Pseudoarthrosis Pt s/e she is doing well. She states she is ready for rehab today. She just got back into bed had been up for several hours, walking in the room and to bathroom. She is passing gas, no BM yet. Voiding appropriately. No CHRISTOPHER, N, V, Blurred vision, double vision. NO other issues currently. Objective - Vital Signs Vital signs: Vital Signs Temp 98.4 F 11/19/20 12:00 Pulse 66 11/19/20 12:00 Resp 19 11/19/20 12:00 BP 126/73 11/19/20 12:00 Pulse Ox 95 11/19/20 12:00 Intake & Output 11/18/20 11/19/20 11/19/20 18:59 06:59 18:59 Intake Total 250 150 240 Output Total 1345 1290 Balance -1095 -1140 240 Intake: Intake, IV Titration 50 50 Amount ceFAZolin 2 gm In Sodium 50 Chloride 0.9% 50 ml @ 100 mls/hr IVPB Q8H BIN Rx#: [id number] ceFAZolin 2 gm In Sodium 50 Chloride 0.9% 50 ml @ 100 mls/hr IVPB Q8HR BIN Rx# :[id number] Oral 200 100 240 Output: Drainage 245 90 Left 25 0 Right 220 90 Urine 1100 1200 Other: Voiding Method Indwelling Catheter External Catheter Bedside Commode # Voids 1 ABP, PAP, CO, CI - Last Documented Arterial Blood Pressure 135/48 - Exam Exam repeated. Noted below. No acute changes. Drains removed today. Dressing changed. INcision is CDI. Some skin irritation around the incision where the optifoam was. No drainage. Patient is alert and oriented 3 appears well-nourished well-hydrated is in no acute distress. They does not appear septic. On exam the patient has minor tenderness to palpation around the incision site the dressing is clean and dry at this time. Drains on either side R in place the deep drain on the right-hand side had 130 out since yesterday of serosanguineous sanguinous discharge no clear discharge the left superficial drain had 0. Lower extremities with 4+ out of 5 strength in all major muscle groups. She is able to wiggle her toes pump her ankles up and down and lift her legs out of the bed under her own power at this time he has good strength through being in bed and laying flat Upper extremities show 5/5 strength in all major muscle groups. There is FROM that is painless of the b/l UE and LE in all major joints. They are intact to light touch sensation in L2 to S1 nerve distribution. Patient has palpable dorsalis pedis was posterior tibial pulses. Compartments are soft and compressible. Patient shows a negative Homans, Miguel's, negative Babinski's negative clonus bilaterally. negative straight leg raise bilaterally. No tensioning signs. Cranial nerves II through XII are grossly intact. - Constitutional General appearance: Present: cooperative - Labs CBC & Chem 7: 11/19/20 03:44 11/19/20 03:44 Labs: Abnormal Lab Results - Last 24 Hours (Table) 11/18/20 11/18/20 11/19/20 Range/Units 17:25 20:42 03:44 RBC 2.69 L (3.80-5.40) m/uL Hgb 8.4 L (11.4-16.0) gm/dL Hct 24.8 L (34.0-46.0) % RDW 16.6 H (11.5-15.5) % Plt Count 91 L (150-450) k/uL Chloride (98-107) mmol/L BUN (7-17) mg/dL POC Glucose (mg/dL) 151 H 130 H (75-99) mg/dL Calcium (8.4-10.2) mg/dL AST (14-36) U/L Total Protein (6.3-8.2) g/dL Albumin (3.5-5.0) g/dL 11/19/20 11/19/20 Range/Units 03:44 11:37 RBC (3.80-5.40) m/uL Hgb (11.4-16.0) gm/dL Hct (34.0-46.0) % RDW (11.5-15.5) % Plt Count (150-450) k/uL Chloride 110 H (98-107) mmol/L BUN 25 H (7-17) mg/dL POC Glucose (mg/dL) 198 H (75-99) mg/dL Calcium 8.2 L (8.4-10.2) mg/dL AST 39 H (14-36) U/L Total Protein 4.3 L (6.3-8.2) g/dL Albumin 2.4 L (3.5-5.0) g/dL Assessment and Plan Assessment: 64-year-old female postop day 6 L2 to pelvis fusion with T12 to S1 decompression, dural erosion and repair with right-sided tension pneumothorax status post chest tube placement 1. Status post multiple lumbar surgeries with low back pain and lower extremity weakness 2. Pseudoarthrosis L3-S1, incomplete instrumentation 3. Low back pain, LE radiculopathy 4. Neurogenic claudication 5. L3-S1 stenosis 6. Mechanical back pain Plan: -Appreciate biztalk consultant and team management. Appreciate ICU management. -Trend labs transfuse for vital signs as necessary -Activity: Gradual increase in activity sit to stand sit in chair all meals out of bed she can attempt to ambulate without the brace to go short distances ho wever she is going to walk and do physical therapy she should have her brace. -Daily PT/OT, increase ambulation strength and balance. -TLSO only when up and walking she may keep it off while seated in chair or laying in bed -Pain control: Adequate at this time -Meds: reviewed, continue with antibiotics -GI ppx: senna, Miralax -DC bill when up and about, bedside commode if needed -DVT PPX: Heparin twice a day -Hygiene: Log roll every 2-3 hours, maintaining good hygiene and clean buttocks and perineal region -Drains: Maintain for now. Record output. DC superficial drain -Encourage IS 10x/hr -Stable for transfer out of the ICU once bed availability -Dispo: Plan for rehab Thursday or Thursday
--- NOTE | 2020-11-20 09:04 | P.PN ---
Subjective Progress Note Date: 11/20/20 Principal diagnosis: Pseudoarthrosis Pt s/e she just got back into bed. She is doing well. No issues. States she is ready for rehab. We are waiting on insurance at this time which is delaying her from getting to rehab and continuing to recover. Objective - Vital Signs Vital signs: Vital Signs Temp 98.7 F 11/20/20 08:00 Pulse 71 11/20/20 08:00 Resp 24 11/20/20 08:00 BP 131/67 11/20/20 08:00 Pulse Ox 96 11/20/20 08:00 Intake & Output 11/19/20 11/20/20 11/20/20 18:59 06:59 18:59 Intake Total 720 500 Output Total 1100 Balance 720 -600 Intake: Oral 720 500 Output: Urine 1100 Other: Voiding Method Bedside Commode Bedside Commode # Voids 1 ABP, PAP, CO, CI - Last Documented Arterial Blood Pressure 135/48 - Exam Exam repeated, no acute changes. Incision is CDI at this time. Dressing CDI. Drains out. No other issues. Mild TTP around incision. Patient is alert and oriented 3 appears well-nourished well-hydrated is in no acute distress. They does not appear septic. On exam the patient has minor tenderness to palpation around the incision site the dressing is clean and dry at this time. Drains on either side R in place the deep drain on the right-hand side had 130 out since yesterday of serosanguineous sanguinous discharge no clear discharge the left superficial drain had 0. Lower extremities with 4+ out of 5 strength in all major muscle groups. She is able to wiggle her toes pump her ankles up and down and lift her legs out of the bed under her own power at this time he has good strength through being in bed and laying flat Upper extremities show 5/5 strength in all major muscle groups. There is FROM that is painless of the b/l UE and LE in all major joints. They are intact to light touch sensation in L2 to S1 nerve distribution. Patient has palpable dorsalis pedis was posterior tibial pulses. Compartments are soft and compressible. Patient shows a negative Homans, Miguel's, negative Babinski's negative clonus bilaterally. negative straight leg raise bilaterally. No tensioning signs. Cranial nerves II through XII are grossly intact. - Constitutional General appearance: Present: cooperative - Labs CBC & Chem 7: 11/20/20 03:09 11/20/20 03:09 Labs: Abnormal Lab Results - Last 24 Hours (Table) 11/19/20 11/19/20 11/19/20 Range/Units 11:37 16:44 20:15 RBC (3.80-5.40) m/uL Hgb (11.4-16.0) gm/dL Hct (34.0-46.0) % RDW (11.5-15.5) % Plt Count (150-450) k/uL Sodium (137-145) mmol/L BUN (7-17) mg/dL POC Glucose (mg/dL) 198 H 140 H 159 H (75-99) mg/dL Calcium (8.4-10.2) mg/dL Total Protein (6.3-8.2) g/dL Albumin (3.5-5.0) g/dL 11/20/20 11/20/20 11/20/20 Range/Units 03:09 03:09 05:55 RBC 2.62 L (3.80-5.40) m/uL Hgb 8.4 L (11.4-16.0) gm/dL Hct 24.6 L (34.0-46.0) % RDW 16.1 H (11.5-15.5) % Plt Count 84 L (150-450) k/uL Sodium 136 L (137-145) mmol/L BUN 24 H (7-17) mg/dL POC Glucose (mg/dL) 100 H (75-99) mg/dL Calcium 8.3 L (8.4-10.2) mg/dL Total Protein 4.5 L (6.3-8.2) g/dL Albumin 2.5 L (3.5-5.0) g/dL Assessment and Plan Assessment: 64-year-old female postop day 7 L2 to pelvis fusion with T12 to S1 decompression, dural erosion and repair with right-sided tension pneumothorax status post chest tube placement 1. Status post multiple lumbar surgeries with low back pain and lower extremity weakness 2. Pseudoarthrosis L3-S1, incomplete instrumentation 3. Low back pain, LE radiculopathy 4. Neurogenic claudication 5. L3-S1 stenosis 6. Mechanical back pain Plan: -Appreciate design consultant and team management. Appreciate ICU management. -Trend labs transfuse for vital signs as necessary -Activity: Gradual increase in activity sit to stand sit in chair all meals out of bed she can attempt to ambulate without the brace to go short distances however she is going to walk and do physical therapy she should have her brace. -Daily PT/OT, increase ambulation strength and balance. -TLSO only when up and walking she may keep it off while seated in chair or laying in bed -Pain control: Adequate at this time -Meds: reviewed, continue with antibiotics -GI ppx: senna, Miralax -DVT PPX: Heparin twice a day -Hygiene: Log roll every 2-3 hours, maintaining good hygiene and clean buttocks and perineal region -Encourage IS 10x/hr -Dispo: REHAB TODAY
[2020-11-20 11:27] VITALS: BMI 40.6
[2020-11-20 11:29] LABS: Glucose,Whole Blood 128 mg/dL (75-99)
[2020-11-20] MEDS ORDERED: ONDANSETRON 4 MG TAB PO PRN (13:41)
[2020-11-20 16:50] LABS: Glucose,Whole Blood 131 mg/dL (75-99)
[2020-11-20 20:15] LABS: Glucose,Whole Blood 198 mg/dL (75-99)
[2020-11-20] MEDS: INSULIN DETEMIR (LEVEMIR) 100 UNIT/ML SYR SQ SCH (20:19)
[2020-11-21] MEDS: HYDROmorphone 0.5 MG/0.5 ML SYRINGE IVP PRN (02:48)
--- NOTE | 2020-11-21 05:21 | PN ---
PROGRESS NOTE The patient was sitting up in a chair. T-max is a 100.1, respiratory 16 to 18, blood pressure 130s over 70s. Oxygen levels, maintaining 94 on room air. Cardiovascular S1, S2. Lungs clear. GI soft. Hematology negative Homans. ASSESSMENT AND PLAN: 1. Status post lumbar surgery. She has a chest brace on. 2. Continue with diabetic Accu-Chek protocol in the shelter as well as Lantus 40 units daily. 3. Continue home medications. 4. Follow up in the next 24 to 48 hours for discharge to [facility]. MMODL / IJN: [id number] /
[2020-11-21 06:31] LABS: Glucose,Whole Blood 106 mg/dL (75-99)
[2020-11-21] MEDS: ACETAMINOPHEN TAB 500 MG TAB PO SCH ×2 (06:32→11:29)
[2020-11-21] MEDS: INSULIN ASPART (NovoLOG) 100 UNIT/ML VIAL SQ SCH ×2 (06:32→11:29)
[2020-11-21] MEDS: carvediloL 12.5 MG TAB PO SCH (06:34)
[2020-11-21] MEDS: CYCLOBENZAPRINE 5 MG TAB PO PRN (06:35)
[2020-11-21] MEDS: PANTOPRAZOLE 40 MG/10 ML VIAL IVP SCH (08:58)
[2020-11-21] MEDS: FUROSEMIDE 10 MG TAB PO SCH (08:59)
[2020-11-21] MEDS: traMADol 50 MG TAB PO SCH (08:59)
[2020-11-21 09:15] VITALS: BP 90/65; PULSE 69; RESP 19; TEMP 99
--- NOTE | 2020-11-21 09:21 | P.PN ---
Progress Note - Text Progress Note Date: 11/21/20 Patient was evaluated today at bedside, she is resting comfortably in her hospital bed. Discharge was placed for yesterday, this was held due to medical reconciliation. Patient has approved for rehab at this time. Patient remains stable on orthopedic spine standpoint Discharged to rehab today, plan for follow-up with Dr. Meeks in 7 days
[2020-11-21 11:25] LABS: Glucose,Whole Blood 211 mg/dL (75-99)
== END 2020-11-21 14:50 | DRG 459 ==
LOC: OR 06:09 → 2SICU 19:14 → 3SCARD 11-15 18:13 → 2SICU 11-15 18:42
PROVIDERS: ADMIT Orthopaedic Surgery; ATTEND Orthopaedic Surgery
DX: M96.0 Pseudarthrosis after fusion or arthrodesis (principal); J96.01 Acute respiratory failure with hypoxia; E87.2 Acidosis; I13.0 Hypertensive heart and chronic kidney disease with heart failure and stage 1 through stage 4 chronic kidney disease, or unspecified chronic kidney disease; I42.8 Other cardiomyopathies; I50.22 Chronic systolic (congestive) heart failure; J95.811 Postprocedural pneumothorax; G96.11 Dural tear; Z20.822 Contact with and (suspected) exposure to COVID-19; E11.22 Type 2 diabetes mellitus with diabetic chronic kidney disease; E11.65 Type 2 diabetes mellitus with hyperglycemia; E78.5 Hyperlipidemia, unspecified; E87.5 Hyperkalemia; F32.9 Major depressive disorder, single episode, unspecified; F41.9 Anxiety disorder, unspecified; G47.33 Obstructive sleep apnea (adult) (pediatric); G89.29 Other chronic pain; J44.9 Chronic obstructive pulmonary disease, unspecified; K21.9 Gastro-esophageal reflux disease without esophagitis; M19.90 Unspecified osteoarthritis, unspecified site; M48.061 Spinal stenosis, lumbar region without neurogenic claudication; M54.10 Radiculopathy, site unspecified; N18.30 Chronic kidney disease, stage 3 unspecified; I48.0 Paroxysmal atrial fibrillation; Z96.653 Presence of artificial knee joint, bilateral; G43.909 Migraine, unspecified, not intractable, without status migrainosus; Y65.8 Other specified misadventures during surgical and medical care; Y92.239 Unspecified place in hospital as the place of occurrence of the external cause; I95.89 Other hypotension; Z95.810 Presence of automatic (implantable) cardiac defibrillator; Z90.710 Acquired absence of both cervix and uterus; Z87.442 Personal history of urinary calculi; Z80.49 Family history of malignant neoplasm of other genital organs; Z80.1 Family history of malignant neoplasm of trachea, bronchus and lung; Z80.0 Family history of malignant neoplasm of digestive organs; Z79.899 Other long term (current) drug therapy; Z79.82 Long term (current) use of aspirin; Z79.4 Long term (current) use of insulin
CPT/HCPCS: 36415; 71045; 72100; 72131; 72192; 80048; 80053; 81003; 82805; 83735; 84443; 85025; 85027; 86850; 86891; 86900; 86901; 86920; 87635; 94002; 94003

== ENCOUNTER 2020-12-27 11:10 | Day surgery (SDC) | payer MEDICARE, OTHER ==
[2020-12-25 16:19] VITALS: BMI 38.2
[~2020-12-27 11:10] MED LIST changes: -DEXAMETHASONE SOD PHOSPHATE 4 MG/ML 1 ML VIAL IV ONE; -LIDOCAINE 1% (10MG/ML) FOR IV START INTRADERMA PRN; -MIDAZOLAM 2 MG/2 ML VIAL IV PRN; -ONDANSETRON 4 MG/2 ML VIAL IVP ONE; -TRANEXAMIC ACID 1,000 MG in SODIUM CHLORIDE 0.9% 100 ML IVPB PRN; +VANCOMYCIN 1,500 MG in SODIUM CHLORIDE 0.9% 250 ML IVPB PRN
[2020-12-27] MEDS ORDERED: LIDOCAINE 1% (10MG/ML) FOR IV START INTRADERMA PRN (12:00)
[2020-12-27] MEDS ORDERED: ONDANSETRON 4 MG/2 ML VIAL IVP ONE (12:00)
[2020-12-27] MEDS ORDERED: MIDAZOLAM 2 MG/2 ML VIAL IV PRN (12:00)
[2020-12-27] MEDS ORDERED: DEXAMETHASONE SOD PHOSPHATE 4 MG/ML 1 ML VIAL IV ONE (12:00)
[2020-12-27] MEDS: LACTATED RINGERS 1,000 ML IV SCH (12:17)
[2020-12-27 12:26] LABS: Glucose,Whole Blood 169 mg/dL (75-99)
[2020-12-27 12:33] LABS: Anisocytosis Slight; Basophils % (A) 0 %; Eosinophils # (A) 0.1 k/uL (0-0.7); Eosinophils % (A) 2 %; HCT 35.7 % (34.0-46.0); HGB 11.3 gm/dL (11.4-16.0); Hypochromasia Slight; Lymphocytes # (A) 0.9 k/uL (1.0-4.8); Lymphocytes % (A) 16 %; MCH 28.9 pg (25.0-35.0); MCHC 31.7 g/dL (31.0-37.0); MCV 91.2 fL (80.0-100.0); Mean Platelet Volume 8.1; Monocytes # (A) 0.3 k/uL (0-1.0); Monocytes % (A) 6 %; Neutrophils # (A) 4.4 k/uL (1.3-7.7); Neutrophils % (A) 75 %; Platelet Count 141 k/uL (150-450); Poikilocytosis Slight; RBC 3.92 m/uL (3.80-5.40); RDW 16.5 % (11.5-15.5); WBC 5.9 k/uL (3.8-10.6)
[2020-12-27 12:47] LABS: Calcium 10.1 mg/dL (8.4-10.2)
[2020-12-27] MEDS ORDERED: ETOMIDATE 2 MG/ML 10 ML VIAL ONE (13:10)
[2020-12-27] MEDS ORDERED: LIDOCAINE 1% INJ 10MG/ML (20 ML MDV) ONE (13:10)
[2020-12-27] MEDS ORDERED: NEOSTIGMINE 1 MG/ML 10 ML VIAL ONE (13:10)
[2020-12-27] MEDS ORDERED: ROCURONIUM 10 MG/ML (5 ML VIAL) IV ONE (13:10)
[2020-12-27] MEDS ORDERED: fentaNYL (PF) 50 MCG/ML 2 ML AMP ONE (13:10)
[2020-12-27] MEDS ORDERED: ESMOLOL 100 MG/10 ML VIAL ONE (13:10)
[2020-12-27] MEDS ORDERED: GLYCOPYRROLATE 0.2 MG/ML 2 ML VIAL ONE (13:10)
[2020-12-27] MEDS ORDERED: MIDAZOLAM 2 MG/2 ML VIAL ONE (13:10)
[2020-12-27] MEDS ORDERED: KETAMINE 10 MG/ML 20 ML VIAL ONE (13:10)
[2020-12-27] MEDS ORDERED: HYDROmorphone (PF) 1 MG/ML ONE (13:10)
[2020-12-27] MEDS ORDERED: SUCCINYLCHOLINE CHLORIDE VIAL 200 MG/10 ML VIAL IV ONE (13:10)
--- NOTE | 2020-12-27 13:25 | P.HPOR ---
History of Present Illness H&P Date: 12/27/20 Chief Complaint: Woundhealing issues 65 yo female who 4.5 weeks prior underwent L2-P revision fusion presented back to office with wound healing issues. The superior and inferior portions of the incision are healing well but the middle part has ulcerations and the epidermis is not healing well. She has not been able to make it to wound care due to ride issues and has not made it to all her post op appts due to the same reason. She has had no f/c/sob/or cp at this time and there is no real drainage from the wound just superficial healing issues. Rather than leave it when she cannot make to wound care we discussed secondary closure in the OR with excision of the necrotic ulcerated areas and she agreed. She was s/e in pre op today. We discussed risks and benefits again of the procedure and she was understanding of them and ready to proceed with excision and closure. Pre op work up complete. She is NPO. Consent is confirmed. Site marked. Review of Systems 14 point ROS completed and as statedin HPI or otherwise all others reviewed negative. Past Medical History Past Medical History: Asthma, Diabetes Mellitus, GERD/Reflux, Hyperlipidemia, Musculoskeletal Disorder, Osteoarthritis (OA), Pneumonia, Renal Disease, Sleep Apnea/CPAP/BIPAP, Vascular Disorder Additional Past Medical History / Comment(s): Neuropathy bilateral hands/legs/feet, CKD stage III, hx kidney stones, anemia, UTI/septic due to lodged kidney stone, bipap use, bronchitis, orthostatic hypotension with near syncope, vertigo, chronic low back pain/DDD, scoliosis, bilateral carpal tunnel syndrome, bilateral varicosities, migraines, gout, hx anemia(from nicked vein in left kidney after surgery for kidney stone), "embolism in my chest." History of Any Multi-Drug Resistant Organisms: None Reported Past Surgical History: AICD, Appendectomy, Back Surgery, Cardiac Ablation, Section, Cholecystectomy, Heart Catheterization, Hysterectomy, Joint Replacement, Orthopedic Surgery, Pacemaker Additional Past Surgical History / Comment(s): Right knee arthroscopy, bilateral total knee arthroplasty, pain clinic procedures, D&C, colonoscopy, bilateral leg varicose vein surgery, lithotripsies, surgical removal of stones, Myelogram([place]) 2018, Lumbar fusion L3-4, lumbar puncture for headaches 2019 (had spinal headache post), laminectomy, bakers cyst removed from right knee, bilateral cataracts, 11/13/20 extensive back surgery with rods in pelvis, fusion, pins and screws. AICD/Pacemaker replaced 09/10/20. Past Anesthesia/Blood Transfusion Reactions: No Reported Reaction Additional Past Anesthesia/Blood Transfusion Reaction / Comment(s): Pt has received blood without reaction. Type of Cardiac Device: Permanent Pacemaker, AICD Device Placement Date:: 09/10/20-Medronic LT CHEST Past Psychological History: Anxiety, Depression Smoking Status: Never smoker Past Alcohol Use History: None Reported Past Drug Use History: None Reported - Past Family History Father Family Medical History: Cancer Additional Family Medical History / Comment(s): Stomach cancer. Brother(s) Family Medical History: Cancer Additional Family Medical History / Comment(s): Lung cancer. Sister(s) Family Medical History: Cancer Additional Family Medical History / Comment(s): Sister had stomach/colon/part of pancreas cancers. Mother Family Medical History: Cancer Additional Family Medical History / Comment(s): Ovarian and cervical cancer. Medications and Allergies Home Medications Medication Instructions Recorded Confirmed Type Aspirin EC [Ecotrin Low Dose] 81 mg PO HS 11/02/18 12/26/20 History Montelukast [Singulair] 10 mg PO HS 11/02/18 12/27/20 History Spironolactone [Aldactone] 12.5 mg PO DAILY 11/02/18 12/27/20 History Atorvastatin [Lipitor] 20 mg PO HS 09/05/19 12/27/20 History Carvedilol [Coreg] 12.5 mg PO BID 09/05/19 12/27/20 History Iron 28mg 28 mg PO DAILY 09/05/19 12/26/20 History Meclizine [Antivert] 12.5 mg PO Q12H PRN 09/05/19 12/27/20 History Topiramate [Topamax] 50 mg PO HS 09/05/19 12/27/20 History tiZANidine [Zanaflex] 4 mg PO HS 09/05/19 12/27/20 History Furosemide [Lasix] 10 mg PO DAILY 12/06/19 12/27/20 History calcitrioL [Rocaltrol] 0.25 mcg PO NORRIS 12/06/19 12/26/20 History Budesonide [Pulmicort Flexhaler] 2 puff INHALATION RT-BID 02/09/20 12/27/20 History Cyclobenzaprine [Flexeril] 5 mg PO BID PRN 02/09/20 12/27/20 History Docusate [Colace] 100 mg PO Q48H 02/09/20 12/27/20 History Ergocalciferol [Vitamin D2 50,000 unit PO Q28D 02/09/20 12/27/20 History (DRISDOL)] Insulin Glargine,Hum.rec.anlog 40 unit SQ HS 02/09/20 12/27/20 History [Lantus Solostar Pen] Insulin Lispro [humaLOG Kwikpen] 15 unit SQ TID-W/MEALS 02/09/20 12/27/20 History Magnesium Oxide [Shaikh] 1,500 mg PO HS 02/09/20 12/27/20 History Midodrine [ProAmatine] 5 mg PO TID 02/09/20 12/27/20 History Albuterol Sulfate [Ventolin HFA] 2 puff INHALATION QID PRN 04/20/20 12/27/20 History Acetaminophen Tab [Tylenol Tab] 1,000 mg PO Q6HR #24 tablet 11/19/20 12/27/20 Rx Sennosides [Senna] 8.6 mg PO DAILY PRN #30 tablet 11/19/20 12/27/20 Rx cefaDROXiL [Duricef] 1 gm PO DAILY #5 tablet 11/19/20 12/27/20 Rx HYDROcodone/APAP 10-325MG [[place] 1 tab PO Q6HR PRN #12 tab 11/21/20 12/27/20 Rx 10-325] traMADol HCL 50 mg PO Q12HR PRN #6 tab 11/21/20 12/27/20 Rx Allergies Allergy/AdvReac Type Severity Reaction Status Date / Time No Known Allergies Allergy Verified 12/27/20 12:18 Physical Examination Osteopathic Statement: *. No significant issues noted on an osteopathic structural exam other than those noted in the History and Physical/Consult. AOX3 NAD, non septic VSS Mild TTP of the L spine Incision is healing, but central part has superficial ulceration and healing issues. No drainage. No erythema. No abscess. 4+/5 strength UE and LE b/l all major muscle groups improving from surgery. SILT L2-S1 2/4 DP/PT pulses Compartmenst soft NEg hoffmans Neg clonus Neg babinski CN I-XII grossly intact Results - Labs Labs: Abnormal Lab Results - Last 24 Hours (Table) 12/27/20 12/27/20 12/27/20 Range/Units 12:15 12:15 12:15 Hgb 11.3 L (11.4-16.0) gm/dL RDW 16.5 H (11.5-15.5) % Plt Count 141 L (150-450) k/uL Lymphocytes # 0.9 L (1.0-4.8) k/uL BUN 25 H (7-17) mg/dL Creatinine 1.24 H (0.52-1.04) mg/dL Glucose 174 H (74-99) mg/dL POC Glucose (mg/dL) 169 H (75-99) mg/dL H & H 12/27/20 Range/Units 12:15 Hgb 11.3 L (11.4-16.0) gm/dL Hct 35.7 (34.0-46.0) % Result Diagrams: 12/27/20 12:15 12/27/20 12:15 Assessment and Plan Assessment: 65 yo female s/p L2-P revision fusion Superficial wound healing issues Plan: NPO Consent confirmed Risks and benefits discussed again and outlined in risk review in office note from most recent visit. Site marked Vaco give for PPX Pt is ready to proceed.
[2020-12-27] MEDS ORDERED: BUPIVACAINE (PF) 0.5% 30 ML VIAL SQ ONE ×2 (13:56)
[2020-12-27] MEDS ORDERED: ceFAZolin 3,000 MG in SODIUM CHLORIDE 0.9% IRRIGATIO 3,000 ML IRRIGATION ONE (13:58)
[2020-12-27] MEDS ORDERED: LACTATED RINGERS 1,000 ML IV ONE (14:30)
[2020-12-27] MEDS ORDERED: MAG HYDROX/AL HYDROX/SIMETH 30 ML CUP PO PRN (14:52)
[2020-12-27] MEDS ORDERED: SENNOSIDES-DOCUSATE SODIUM 1 EACH TAB PO PRN (14:52)
[2020-12-27] MEDS ORDERED: CYCLOBENZAPRINE 5 MG TAB PO PRN (14:52)
[2020-12-27] MEDS ORDERED: HYDROmorphone 0.5 MG/0.5 ML SYRINGE IVP PRN (14:52)
[2020-12-27] MEDS ORDERED: HYDROcodone/APAP 5-325MG 1 EACH TAB PO PRN (14:52)
[2020-12-27] MEDS ORDERED: VANCOMYCIN IV PER PHARMACY 1 EACH MISC MISCELLANE PRN (14:54)
[2020-12-27] MEDS ORDERED: GENTAMICIN PER PHARMACY MISCELLANE PRN (14:56)
[2020-12-27 15:03] LABS: Glucose,Whole Blood 186 mg/dL (75-99)
[2020-12-27] MEDS: HYDROmorphone 0.5 MG/0.5 ML SYRINGE IVP PRN ×2 (15:15→15:21)
--- NOTE | 2020-12-27 15:21 | P.PN ---
Progress Note - Text Progress Note Date: 12/27/20 Brief post op note Preop diagnosis lumbar wound delayed healing post op Diagnosis same procedure: incision and drainage with excision of necrotic skin and secondary one closure surgeon: Jeanna assist: Carlotta anesthesia: G ETA EBL: 50cc implant: none complications: none disposition: PACU
[2020-12-27 17:03] LABS: Glucose,Whole Blood 185 mg/dL (75-99)
[2020-12-27] MEDS ORDERED: HYDROcodone/APAP 10-325MG 1 EACH TAB PO PRN (17:42)
[2020-12-27] MEDS ORDERED: DOCUSATE 100 MG CAP PO SCH (17:45)
[2020-12-27] MEDS ORDERED: GENTAMICIN 380 MG in SODIUM CHLORIDE 0.9% 100 ML IVPB SCH (18:00)
[2020-12-27] MEDS: ALBUTEROL HFA INHALER INHALATION PRN (19:32)
[2020-12-27] MEDS: carvediloL 12.5 MG TAB PO SCH (20:22)
[2020-12-27] MEDS: MIDODRINE 5 MG TAB PO SCH (20:23)
[2020-12-27] MEDS: HYDROcodone/APAP 10-325MG 1 EACH TAB PO PRN (20:25)
[2020-12-27] MEDS: FLUTICASONE 110 MCG INHALER INHALATION SCH (20:54)
[2020-12-27] MEDS ORDERED: ASPIRIN 81 MG PO SCH (21:00)
[2020-12-27] MEDS ORDERED: MONTELUKAST 10 MG TAB PO SCH (21:00)
[2020-12-27] MEDS ORDERED: TOPIRAMATE 25 MG TAB PO SCH (21:00)
[2020-12-27] MEDS ORDERED: MAGNESIUM OXIDE 400 MG TAB PO SCH (21:00)
[2020-12-27] MEDS ORDERED: ATORVASTATIN 20 MG TAB PO SCH (21:00)
[2020-12-27 21:11] LABS: Glucose,Whole Blood 261 mg/dL (75-99)
[2020-12-27] MEDS: INSULIN ASPART (NovoLOG) 100 UNIT/ML VIAL SQ SCH (22:41)
[2020-12-27] MEDS ORDERED: VANCOMYCIN 1,750 MG in SODIUM CHLORIDE 0.9% 500 ML 500 ML IVPB SCH (23:00)
--- NOTE | 2020-12-27 23:29 | CONS ---
CONSULTATION This patient is a white female, status post wound dehiscence of the lumbar spine, status post surgery a week ago, here for medical management. She is stable postoperatively. In a lot of pain, wants Dilaudid shots. She had excision of necrotic tissue secondary to closure. Vital signs are stable. Fourteen-point review of systems negative except for mentioned in HPI. HEMATOLOGY: Negative Homans. VASCULAR: Normal dorsalis pedis, posterior tibial and radial pulse. OPHTHALMOLOGIC: Pupils equal, round and reactive. NEUROLOGIC: Cranial nerves are intact. ASSESSMENT: 1. Status post wound dehiscence, lumbar surgery. 2. Insulin-dependent diabetes mellitus. 3. Congestive heart failure. 4. Chronic obstructive pulmonary disease. 5. Hypothyroidism. 6. Hypertension. Prognosis guarded. Continue home medicines as ordered. Monitor. Possibly home in the morning. MMODL / IJN: [id number] /
[2020-12-28 06:16] LABS: Anisocytosis Slight; Basophils % (A) 0 %; Eosinophils % (A) 0 %; HCT 30.3 % (34.0-46.0); Hypochromasia Moderate; Lymphocytes # (A) 0.5 k/uL (1.0-4.8); Lymphocytes % (A) 7 %; MCH 29.1 pg (25.0-35.0); MCHC 31.5 g/dL (31.0-37.0); MCV 92.4 fL (80.0-100.0); Monocytes # (A) 0.3 k/uL (0-1.0); Monocytes % (A) 4 %; Neutrophils # (A) 5.6 k/uL (1.3-7.7); Neutrophils % (A) 87 %; Platelet Count 117 k/uL (150-450); Poikilocytosis Slight; RBC 3.27 m/uL (3.80-5.40); RDW 16.1 % (11.5-15.5); WBC 6.4 k/uL (3.8-10.6)
[2020-12-28 06:19] LABS: HGB 9.5 gm/dL (11.4-16.0)
[2020-12-28] MEDS: HYDROcodone/APAP 10-325MG 1 EACH TAB PO PRN (07:12)
[2020-12-28] MEDS: MIDODRINE 5 MG TAB PO SCH ×2 (07:13→15:12)
[2020-12-28] MEDS: carvediloL 12.5 MG TAB PO SCH (07:13)
[2020-12-28 07:14] LABS: Glucose,Whole Blood 151 mg/dL (75-99)
[2020-12-28] MEDS: INSULIN ASPART (NovoLOG) 100 UNIT/ML VIAL SQ SCH ×3 (07:14→17:08)
[2020-12-28] MEDS: FLUTICASONE 110 MCG INHALER INHALATION SCH (08:40)
[2020-12-28] MEDS: ALBUTEROL HFA INHALER INHALATION PRN ×2 (08:42→12:53)
[2020-12-28] MEDS ORDERED: IRON 28 MG PO SCH (09:00)
[2020-12-28] MEDS ORDERED: FUROSEMIDE 10 MG TAB PO SCH (09:00)
[2020-12-28] MEDS ORDERED: SPIRONOLACTONE 25 MG TAB PO SCH (09:00)
[2020-12-28] MEDS: LACTATED RINGERS 1,000 ML IV SCH (11:22)
[2020-12-28 11:23] LABS: African American GFR (CKD) 45.3 (60.0-200.0); Anion Gap 11.1 mmol/L (4.00-12.00); BUN/Creat Ratio 16.71 Ratio (12.00-20.00); Blood Urea Nitrogen 23.4 mg/dL (9.0-27.0); Calcium 8.8 mg/dL (8.7-10.3); Carbon Dioxide 21.9 mmol/L (21.6-31.8); Non-African American GFR(CKD) 39.1 (60.0-200.0); Potassium 4.9 mmol/L (3.5-5.5)
--- NOTE | 2020-12-28 11:53 | P.OP ---
Date of Procedure: 12/27/20 Preoperative Diagnosis: 1. 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 s/p L2-P fusion Postoperative Diagnosis: 1. 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 s/p L2-P fusion Procedure(s) Performed: 1. Excisional debridment of necrotic skin lumbar spine 2. Complex wound closure lumbar spine 20 x 8 x 5 cm Anesthesia: GETA Pathology: none sent Condition: stable Disposition: PACU Indications for Procedure: 65 yo female underwent L2-P revision fusion 4.5 weeks prior. She had been doing fairly well, but is having wound healing issues. she has been unable to make it to wound care and has also missed and appt with our office due to ride issues. She followed up and she is still having superficial wound healing issues with ulceration around the midportion of the incision. Ends are healed well and there is no drainage or purulence noted, howevere superficially she is not healing well and the ulcerated portions are starting to necrose. We discussed options and since she cannot make it to wound care easily we decided the she needed to have this portion of her incision revised. We discussed all risks and benefits of the procedures and that she may still need to try and get to wound care after the proceedure and she understood. She was seen pre operatively. She was confirmed NPO, consent was confirmed and medications given. Abx in the form of vancomycin started. She was ready and willing to proceed. All questions were answered, site was marked. Description of Procedure: The patient was seen and examined in the preoperative area. All preoperative protocols were followed. Informed consent was obtained risks and benefits of the procedure were discussed at length. Risks including bleeding infection damage to the surrounding tissue and risk of reoperation were discussed with the patient. Risk of anesthesia up to and including was a discussed with the patient. These are outlined in the risk review. They were willing to accept these risks and all of the risks of surgery. The patient was given a weight- based dose of antibiotics in the form of vancomycin weight-based dose. The patient was seen and evaluated by the anesthesia team who deemed them fit for surgery. The site was marked, the patient was willing to proceed with the procedure. The patient was transferred to the operative suite by the Department of anesthesia. They were then drifted off to sleep by the department anesthesia GETA anesthesia. The patient tolerated this well. . Once confirmation of lines and ventilation the patient was transferred to a prone Nic table very carefully. All bony prominences including wrists, elbows, axilla, chest, hips, and thighs, and feet were padded very well. Special attention was paid to the genitalia and these were padded accordingly. SCDs were placed on bilateral lower extremities and were connected. Arms were well padded and placed [on arm boards up and out in the 90/90 position]. Once in position, again we confirmed good ventilation capabilities and that lines were running appropriately. The patient's lumbar spine was then exposed. 1010s were placed outlining the incision site. Standard alcohol was used to clean the incision site and allowed to dry. C-arm was used to biomark the patient and confirm level for incision which was marked with a skin marker. Operative briefing was performed with all teams and everyone in agreement to proceed. The patient was then prepped and draped in a normal sterile fashion. Timeout was then performed and all parties were in agreement with the procedure to be performed. Skin marker was used to lamar out an elliptical type incision around the necrotic areas in the midportion of the lumbar spine. 10 blade was then used to excise this area. We then excised the soft tissue the surrounding area and deep into the superficial and mid portions of the fatty tissue layers. This ensured that we got deep to the necrotic tissue as well as excise the correct amount to freshen the edges and create no tension. We then use electrocautery to maintain hemostasis with then undermined the soft tissue to create flaps and to decrease the amount of tension on the skin. We then thoroughly irrigated the area first with 3 L of antibiotic saline solution followed by 6 L of normal sterile saline we used curettes to scrape the soft tissue as well as skin edges to freshen them. We excised any further soft tissue or skin that appeared necrotic. There is no purulent material there was nothing that appeared to be infected there is nothing that traveled deep everything deep to this had healed her any. We then performed a complex layered closure first with the deep subcu tissue with 0 PDS followed by the superficial subcu tissue with 2-[address] nylon in the skin the wound edges approximated very well. We then clean the wound with alcohol and dressed it sterilely with an operative foam dressing. A superficial drain had been placed prior to closure and this was sewn into position and dressed sterilely as well. The patient was transferred back to her hospital bed atraumatically. Drain continued to hold suction and were in good position. Patient was then awakened and extubated by the department of anesthesia having tolerated the procedure very well with no complications. She was transferred to the postoperative care unit in stable condition.
[2020-12-28 12:24] LABS: Glucose,Whole Blood 155 mg/dL (75-99)
[2020-12-28 13:10] VITALS: BP 102/64; PULSE 83; RESP 16; TEMP 97.9
--- NOTE | 2020-12-28 14:01 | P.DS ---
Providers Date of admission: 12/27/2020 Expected date of discharge: 12/28/20 Attending physician: Jomar Meeks DO Consults: 12/27/20 16:38 Consult Physician Routine Consulting Provider: Vishal Snell Reason/Comments: med management Do you want consulting provider notified?: Yes Primary care physician: Vishal Snell [facility] Course: Date of admission: 12/19/2020 Date of discharge: 12/28/2020 Admission diagnosis: 1. 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 s/p L2-P fusion Discharge diagnosis: Same Attending physician: Dr. Meeks Surgical procedures: 1. Excisional debridment of necrotic skin lumbar spine 2. 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 At this point patient has failed conservative treatment measures and has opted to proceed with a elective excisional debridement of necrotic skin lumbar spine; complex wound closure lumbar spine 20 X8X5 centimeters. Hospital course: Details of patient's surgery can be found in operative report. Patient tolerated the procedure well and was subsequently transported to orthopedic floor. Patient's orthopeidc and medical care was provided daily. Patient had daily laboratory tests performed for evaluation of overall blood counts. Patient had daily physical therapy to include strengthening range of motion as well as education with walker ambulation. Patient was noted to have a relatively uneventful postoperative course. Patient reported satisfactory pain control with oral pain medications by postoperative day 1. Patient showed satisfactory progress with physical therapy. Patient moved steadily through the program and had no difficulty meeting the goals by postoperative day 1. Given patient's otherwise satisfactory course and having met physical therapy goals, plan is to discharge patient home on postoperative day 1. Discharge condition/disposition: Patient will be discharged home in stable condition. Discharge medications: Instructions are given on resumption of patient's normal daily medications per primary care recommendation, in addition patient will be prescribed oxycodone 5 mg/325 mg; senna; Flexeril 10 mg; Duricef 1 g. Spine Discharge and Recovery Instructions Medications: See medication list All medication refills should be obtained through your primary care doctor or your clinic spine surgeon. Please discuss prescription refills at your follow up appointment. Do not call the hospital for medication refills. Dressing: Leave your dressing in place for a total of 5 days post operatively. Then you may remove your dressing and leave open to air. Keep the area clean and if not able to keep area clean, then cover with sterile gauze and tape. Showering: You may shower 3 days after your procedure allowing soap and water to run over incision. Do not scrub. Do not soak. Blot dry. Follow up: Please confirm a follow up appointment with your surgeon 3 weeks post operatively. Please make an appointment to follow up with your PCP in 1-2 weeks after surgery for evaluation 3 phase, 3-week plan POST OP WEEKS 1-3 1. Lifting/carrying/pushing/pulling limited to less than 5 pounds. 2. Do not sit for longer than 15 minutes at one time. Get up and walk around. Prolonged sitting is NOT advised. If you lay down, see if you can tolerate laying down on you front (belly side) 3. Walk for periods of 15 minutes = 1 mile but no longer; do it multiple times times each day. 4. Ice your low back after activity. POST OP WEEKS 3-6 1. Lifting limited to less than 20 pounds. 2. Do not sit for longer than 30 minutes at a time. Frequently change positions. Use a sit-to stand workstation or take frequent breaks from sitting if you have returned to work. 3. Walk for 30 minutes each day. If possible, do these three or more times a day POST OP WEEKS 6+ At your 6-week appointment we will give you a physical therapy referral to focus on a core stabilization and strengthening program. You should also work on leg & buttock strengthening, hamstring & quadriceps stretching, and continue a low impact aerobic activity program such as swimming, walking, or riding a stationary bicycle. During the initial 6 weeks after your surgery, you are at the highest risk of re-injuring your spine. You should generally avoid BLTs (bending, lifting and twisting combination motions) and follow the above guidelines to reduce the chance of reinjury. You can anticipate post op appointments in our office at approximately 3 weeks and 6 weeks after your surgery. INCISION CARE: If your incision is not draining you do NOT need to cover it with a dressing. Keep your incision clean, dry and intact. In most cases, we apply skin glue, mana or sutures to the incision at the time of surgery. This will be like a crust or have the appearance of a scab and will fall off in time on its own. The stitches or mana need to be removed at 3 weeks post op appointment. You may begin to shower 3 days after surgery (this allows the glue to wahl well). However, please avoid scrubbing the incision site or peeling off any of the skin glue. This will ensure optimal healing of your incision. Also, during this time avoid soaking the incision area in water - this includes swimming pools, hot tubs or baths. No ointments, lotions or oils on the incision until your surgeon allows. Leave mana, sutures or glue in place. Neurological dysfunction that comes on suddenly can also be a sign of a stroke. Below some common symptoms of a stroke are listed: B - balance difficulty such as sudden onset walking or leaning to one side - NEW E - eye problem such as sudden double vision or trouble seeing on one side - NEW F - Facial weakness or numbness on one side - NEW A - Arm or leg weakness or numbness on one side - NEW S - Slurred speech or difficulty with word finding - NEW T - Time is BRAIN! Call 911 as soon as you recognize these symptoms Diet: Consume a regular diet rich in vegetables and lean protein such as chicken or fish. You should consume in a ratio of approximately 20% fats|40% carbohydrates|40%protein. Vegetables, sweet potatoes, brown rice or quinoa are examples of good carbohydrates. Chips, white bread, cookies and sweets/sugar are examples of bad carbohydrates. Limit your bad carbs, go wild with good carbs. "Life's Simple 7" Guidelines as per [employer] These will help you reclaim your life after surgery and electricians top helper in your recovery, keeping in mind your restrictions. (1) Get Active. Physical activity can help people lose weight, control high blood pressure and cholesterol, feel emotionally better, and sleep better. (2) Control Cholesterol. Avoid a diet high in saturated fat, trans fat, & cholesterol. Limit whole milk & cream, ice cream, butter, egg yolks, processed meats (like sausage and hot dogs), and fatty meats. Choose healthy foods that are low in saturated fat, trans fat and cholesterol which include: Fruits and vegetables, fiber rich grain products (like whole grain pasta and brown rice), lean meat such as chicken, fish, nuts, seeds, and legumes. (3) Eat Better. Eat small portions. Shop at the grocery with a list and do not stray from it. Tips for a healthy diet include: Limit sodium intake to less than 1500mg daily, avoid prepackaged, processed, and fast foods, choose a diet rich in fruits, vegetables, and whole grain, high fiber foods, and limit saturated & cholesterol in your diet. (4) Manage Blood Pressure. If you have high blood pressure, you should have a cuff at home so that you can check your blood pressure regularly. Be sure you have a good cuff. An arm one is generally better than a wrist one. Bring the cuff to a doctor's appointment to validate that the measurements that your cuff are taking are accurate. Take your blood pressure twice daily when you are sitting down and relaxing. Record the numbers in a log and bring this log with you to your doctors' appointments. (5) Lose Weight if your BMI is above 25. A healthy BMI is between 19-25. To calculate Your BMI, you may use a Standard BMI Calculator on the NIH BMI website: <www.nhlbi.nih.gov/guidelines/obesity/BMI/bmicalc.htm>. Weigh oneself daily. If you are overweight, set a goal to lose weight. A pound a week loss if needed is a good target. (6) Reduce Blood Sugar. Limit foods and liquids with "added sugars." (Added sugars include sucrose, fructose, glucose, maltose, dextrose, high fructose corn syrup, corn syrup, concentrated fruit juice and honey). (7) Stop Smoking. If you smoke, quitting smoking is one of the best things that you can do for your health. Smoking increases your risk of heart attack, stroke, and peripheral vascular disease, which is a build-up of plaque in your arteries. Please discard all the cigarettes and lighters in your house. Have a plan for what you will do when you have the urge to smoke. Direct and second- hand smoke shortens your life as well as the lives of your family, friends and others around you. For your health and the health of those around you, please consider quitting! Proper Bending Body Mechanics: Maintain a wide stance with one foot slightly in front of the other. Keep your back straight. Bend utilizing the strength in your hips and knees. Do not bend at the waist. Maintain the lifted object at your waist-level close to your body. Avoid lifting weight that causes immediately pain or pain anywhere in the body afterwards. Smoking/Nicotine If there was ever one thing that you could do to increase your overall health, decrease your risk of cardiovascular problems by about 39% the second you make the choice, it is to STOP SMOKING. Your body's most instant gratification is the second you stop smoking. We have all heard the studies, read the articles but it is true, smoking is extremely bad for your overall health, and moreover it is detrimental to your bone health. Nicotine, IN ANY FORM, kills bone cells, prevents your body from healing fractures, and significantly prolongs healing after surgery. In spine surgery specifically, it increases your risk of not healing your bones to create a fusion and increases your risk of having a revision surgery due to this up to 60%. I know it is hard. I know it feels impossible. But there are ways. Take control of your life. We are here to help you through it. And when you are ready, ask us and we can direct you to help if you desire. Use the START Plan to Quit Smoking (please visit the Helpguide.org website listed below for more information): S = Set a quit date. Choose a date within the next 2 weeks, so you have enough time to prepare without losing your motivation to quit. If you mainly smoke at work, quit on the weekend, so you have a few days to adjust to the change. T = Tell family, friends, and co-workers that you plan to quit. Let your friends and family in on your plan to quit smoking and tell them you need their support and encouragement to stop. Look for a quit jessica who wants to stop smoking as well. You can help each other get through the rough times. A = Anticipate and plan for the challenges you'll face while quitting. Most people who begin smoking again do so within the first 3 months. You can help yourself make it through by preparing ahead for common challenges, such as nicotine withdrawal and cigarette cravings. R = Remove cigarettes and other tobacco products from your home, car, and work. Throw away all your cigarettes (no emergency pack!), lighters, ashtrays, and matches. Wash your clothes and freshen up anything that smells like smoke. Shampoo your car, clean your drapes and carpet, and steam your furniture. T = Talk to your doctor about getting help to quit. Your doctor can prescribe medication to help with withdrawal and suggest other alternatives. If you can't see a doctor, you can get many products over the counter at your local pharmacy or grocery store, including the nicotine patch, nicotine lozenges, and nicotine gum. Resources for Quitting Smoking: <https://www.[facility].gov/documents/[facility]/Quit_Tobacco_Resources_for_patients_313480_7.pdf> Supplementation: Take recommended dosages of Vitamin D and Calcium to help fortify your bones and help them to heal. See your health maintenance packet for dosages and recommended levels. DVT/VTE prophylaxis: You will be given compression stockings from the hospital. Wear these daily for the first two weeks after surgery. You may take them off at night. You may be prescribed a medication to help thin your blood. Take this as directed. If you are not prescribed this medication, early and frequent ambulation has been shown to be the best prophylaxis to deep vein thrombosis and sequelae related to this event. Assessment: 1. 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 s/p L2-P fusion Procedures: 1. Excisional debridment of necrotic skin lumbar spine 2. Complex wound closure lumbar spine 20 x 8 x 5 cm Patient Condition at Discharge: Good Plan - Discharge Summary Discharge Rx Participant: No New Discharge Prescriptions: New oxyCODONE HCL/ACETAMINOPHEN [oxyCODONE HCL/ACETAMINOPHEN 5-325] 1 tab PO Q8H #21 tab Cyclobenzaprine [Flexeril] 5 mg PO BID #20 tab cefaDROXiL [Duricef] 1 gm PO DAILY #5 tablet Sennosides/Docusate Sodium [Senna Plus 8.6-50 mg Softgel] 1 each PO DAILY #20 capsule No Action Aspirin EC [Ecotrin Low Dose] 81 mg PO HS Montelukast [Singulair] 10 mg PO HS Spironolactone [Aldactone] 12.5 mg PO DAILY Atorvastatin [Lipitor] 20 mg PO HS Carvedilol [Coreg] 12.5 mg PO BID tiZANidine [Zanaflex] 4 mg PO HS Topiramate [Topamax] 50 mg PO HS Iron 28mg 28 mg PO DAILY Meclizine [Antivert] 12.5 mg PO Q12H PRN PRN Reason: VERTIGO calcitrioL [Rocaltrol] 0.25 mcg PO NORRIS Furosemide [Lasix] 10 mg PO DAILY Docusate [Colace] 100 mg PO Q48H Midodrine [ProAmatine] 5 mg PO TID Cyclobenzaprine [Flexeril] 5 mg PO BID PRN PRN Reason: MUSCLE SPASM Budesonide [Pulmicort Flexhaler] 2 puff INHALATION RT-BID Ergocalciferol [Vitamin D2 (DRISDOL)] 50,000 unit PO Q28D Insulin Lispro [humaLOG Kwikpen] 15 unit SQ TID-W/MEALS Insulin Glargine,Hum.rec.anlog [Lantus Solostar Pen] 40 unit SQ HS Magnesium Oxide [Shaikh] 1,500 mg PO HS Albuterol Sulfate [Ventolin HFA] 2 puff INHALATION QID PRN PRN Reason: sob Sennosides [Senna] 8.6 mg PO DAILY PRN #30 tablet PRN Reason: Constipation traMADol HCL 50 mg PO Q12HR PRN #6 tab PRN Reason: Pain Acetaminophen Tab [Tylenol Tab] 1,000 mg PO Q6HR #24 tablet cefaDROXiL [Duricef] 1 gm PO DAILY #5 tablet HYDROcodone/APAP 10-325MG [[place] 10-325] 1 tab PO Q6HR PRN #12 tab PRN Reason: Pain Discharge Medication List Aspirin EC [Ecotrin Low Dose] 81 mg PO HS 11/02/18 [History] Montelukast [Singulair] 10 mg PO HS 11/02/18 [History] Spironolactone [Aldactone] 12.5 mg PO DAILY 11/02/18 [History] Atorvastatin [Lipitor] 20 mg PO HS 09/05/19 [History] Carvedilol [Coreg] 12.5 mg PO BID 09/05/19 [History] Iron 28mg 28 mg PO DAILY 09/05/19 [History] Meclizine [Antivert] 12.5 mg PO Q12H PRN 09/05/19 [History] Topiramate [Topamax] 50 mg PO HS 09/05/19 [History] tiZANidine [Zanaflex] 4 mg PO HS 09/05/19 [History] Furosemide [Lasix] 10 mg PO DAILY 12/06/19 [History] calcitrioL [Rocaltrol] 0.25 mcg PO NORRIS 12/06/19 [History] Budesonide [Pulmicort Flexhaler] 2 puff INHALATION RT-BID 02/09/20 [History] Cyclobenzaprine [Flexeril] 5 mg PO BID PRN 02/09/20 [History] Docusate [Colace] 100 mg PO Q48H 02/09/20 [History] Ergocalciferol [Vitamin D2 (DRISDOL)] 50,000 unit PO Q28D 02/09/20 [History] Insulin Glargine,Hum.rec.anlog [Lantus Solostar Pen] 40 unit SQ HS 02/09/20 [History] Insulin Lispro [humaLOG Kwikpen] 15 unit SQ TID-W/MEALS 02/09/20 [History] Magnesium Oxide [Shaikh] 1,500 mg PO HS 02/09/20 [History] Midodrine [ProAmatine] 5 mg PO TID 02/09/20 [History] Albuterol Sulfate [Ventolin HFA] 2 puff INHALATION QID PRN 04/20/20 [History] Acetaminophen Tab [Tylenol Tab] 1,000 mg PO Q6HR #24 tablet 11/19/20 [Rx] Sennosides [Senna] 8.6 mg PO DAILY PRN #30 tablet 11/19/20 [Rx] cefaDROXiL [Duricef] 1 gm PO DAILY #5 tablet 11/19/20 [Rx] HYDROcodone/APAP 10-325MG [[place] 10-325] 1 tab PO Q6HR PRN #12 tab 11/21/20 [Rx] traMADol HCL 50 mg PO Q12HR PRN #6 tab 11/21/20 [Rx] Cyclobenzaprine [Flexeril] 5 mg PO BID #20 tab 12/28/20 [Rx] Sennosides/Docusate Sodium [Senna Plus 8.6-50 mg Softgel] 1 each PO DAILY #20 capsule 12/28/20 [Rx] cefaDROXiL [Duricef] 1 gm PO DAILY #5 tablet 12/28/20 [Rx] oxyCODONE HCL/ACETAMINOPHEN [oxyCODONE HCL/ACETAMINOPHEN 5-325] 1 tab PO Q8H #21 tab 12/28/20 [Rx] Follow up Appointment(s)/Referral(s): Jomar Meeks DO [Doctor of Osteopathic Medicine] - 1 Week Activity/Diet/Wound Care/Special Instructions: Spine Discharge and Recovery Instructions Date of Surgery: 12/27/2020 Diagnosis: 1. 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 s/p L2-P fusion Procedure: 1. Excisional debridment of necrotic skin lumbar spine 2. Complex wound closure lumbar spine 20 x 8 x 5 cm Medications: See medication list All medication refills should be obtained through your primary care doctor or your clinic spine surgeon. Please discuss prescription refills at your follow up appointment. Do not call the hospital for medication refills. Dressing: Leave your dressing in place for a total of 5 days post operatively. Then you may remove your dressing and leave open to air. Keep the area clean and if not able to keep area clean, then cover with sterile gauze and tape. Showering: You may shower 3 days after your procedure allowing soap and water to run over incision. Do not scrub. Do not soak. Blot dry. Follow up: Please confirm a follow up appointment with your surgeon 3 weeks post operatively. Please make an appointment to follow up with your PCP in 1-2 weeks after surgery for evaluation 3 phase, 3-week plan POST OP WEEKS 1-3 1. Lifting/carrying/pushing/pulling limited to less than 5 pounds. 2. Do not sit for longer than 15 minutes at one time. Get up and walk around. Prolonged sitting is NOT advised. If you lay down, see if you can tolerate laying down on you front (belly side) 3. Walk for periods of 15 minutes = 1 mile but no longer; do it multiple times times each day. 4. Ice your low back after activity. POST OP WEEKS 3-6 1. Lifting limited to less than 20 pounds. 2. Do not sit for longer than 30 minutes at a time. Frequently change positions. Use a sit-to stand workstation or take frequent breaks from sitting if you have returned to work. 3. Walk for 30 minutes each day. If possible, do these three or more times a day POST OP WEEKS 6+ At your 6-week appointment we will give you a physical therapy referral to focus on a core stabilization and strengthening program. You should also work on leg & buttock strengthening, hamstring & quadriceps stretching, and continue a low impact aerobic activity program such as swimming, walking, or riding a stationary bicycle. During the initial 6 weeks after your surgery, you are at the highest risk of re-injuring your spine. You should generally avoid BLTs (bending, lifting and twisting combination motions) and follow the above guidelines to reduce the chance of reinjury. You can anticipate post op appointments in our office at approximately 3 weeks and 6 weeks after your surgery. INCISION CARE: If your incision is not draining you do NOT need to cover it with a dressing. Keep your incision clean, dry and intact. In most cases, we apply skin glue, mana or sutures to the incision at the time of surgery. This will be like a crust or have the appearance of a scab and will fall off in time on its own. The stitches or mana need to be removed at 3 weeks post op appointment. You may begin to shower 3 days after surgery (this allows the glue to wahl well). However, please avoid scrubbing the incision site or peeling off any of the skin glue. This will ensure optimal healing of your incision. Also, during this time avoid soaking the incision area in water - this includes swimming pools, hot tubs or baths. No ointments, lotions or oils on the incision until your surgeon allows. Leave mana, sutures or glue in place. Neurological dysfunction that comes on suddenly can also be a sign of a stroke. Below some common symptoms of a stroke are listed: B - balance difficulty such as sudden onset walking or leaning to one side - NEW E - eye problem such as sudden double vision or trouble seeing on one side - NEW F - Facial weakness or numbness on one side - NEW A - Arm or leg weakness or numbness on one side - NEW S - Slurred speech or difficulty with word finding - NEW T - Time is BRAIN! Call 911 as soon as you recognize these symptoms Diet: Consume a regular diet rich in vegetables and lean protein such as chicken or fish. You should consume in a ratio of approximately 20% fats|40% carbohydrates|40%protein. Vegetables, sweet potatoes, brown rice or quinoa are examples of good carbohydrates. Chips, white bread, cookies and sweets/sugar are examples of bad carbohydrates. Limit your bad carbs, go wild with good carbs. "Life's Simple 7" Guidelines as per [employer] These will help you reclaim your life after surgery and electricians top helper in your recovery, keeping in mind your restrictions. (1) Get Active. Physical activity can help people lose weight, control high blood pressure and cholesterol, feel emotionally better, and sleep better. (2) Control Cholesterol. Avoid a diet high in saturated fat, trans fat, & cholesterol. Limit whole milk & cream, ice cream, butter, egg yolks, processed meats (like sausage and hot dogs), and fatty meats. Choose healthy foods that are low in saturated fat, trans fat and cholesterol which include: Fruits and vegetables, fiber rich grain products (like whole grain pasta and brown rice), lean meat such as chicken, fish, nuts, seeds, and legumes. (3) Eat Better. Eat small portions. Shop at the grocery with a list and do not stray from it. Tips for a healthy diet include: Limit sodium intake to less than 1500mg daily, avoid prepackaged, processed, and fast foods, choose a diet rich in fruits, vegetables, and whole grain, high fiber foods, and limit saturated & cholesterol in your diet. (4) Manage Blood Pressure. If you have high blood pressure, you should have a cuff at home so that you can check your blood pressure regularly. Be sure you have a good cuff. An arm one is generally better than a wrist one. Bring the cuff to a doctor's appointment to validate that the measurements that your cuff are taking are accurate. Take your blood pressure twice daily when you are sitting down and relaxing. Record the numbers in a log and bring this log with you to your doctors' appointments. (5) Lose Weight if your BMI is above 25. A healthy BMI is between 19-25. To calculate Your BMI, you may use a Standard BMI Calculator on the NIH BMI website: <www.nhlbi.nih.gov/guidelines/obesity/BMI/bmicalc.htm>. Weigh oneself daily. If you are overweight, set a goal to lose weight. A pound a week loss if needed is a good target. (6) Reduce Blood Sugar. Limit foods and liquids with "added sugars." (Added sugars include sucrose, fructose, glucose, maltose, dextrose, high fructose corn syrup, corn syrup, concentrated fruit juice and honey). (7) Stop Smoking. If you smoke, quitting smoking is one of the best things that you can do for your health. Smoking increases your risk of heart attack, stroke, and peripheral vascular disease, which is a build-up of plaque in your arteries. Please discard all the cigarettes and lighters in your house. Have a plan for what you will do when you have the urge to smoke. Direct and second- hand smoke shortens your life as well as the lives of your family, friends and others around you. For your health and the health of those around you, please consider quitting! Proper Bending Body Mechanics: Maintain a wide stance with one foot slightly in front of the other. Keep your back straight. Bend utilizing the strength in your hips and knees. Do not bend at the waist. Maintain the lifted object at your waist-level close to your body. Avoid lifting weight that causes immediately pain or pain anywhere in the body afterwards. Smoking/Nicotine If there was ever one thing that you could do to increase your overall health, decrease your risk of cardiovascular problems by about 39% the second you make the choice, it is to STOP SMOKING. Your body's most instant gratification is the second you stop smoking. We have all heard the studies, read the articles but it is true, smoking is extremely bad for your overall health, and moreover it is detrimental to your bone health. Nicotine, IN ANY FORM, kills bone cells, prevents your body from healing fractures, and significantly prolongs healing after surgery. In spine surgery specifically, it increases your risk of not healing your bones to create a fusion and increases your risk of having a revision surgery due to this up to 60%. I know it is hard. I know it feels impossible. But there are ways. Take control of your life. We are here to help you through it. And when you are ready, ask us and we can direct you to help if you desire. Use the START Plan to Quit Smoking (please visit the Helpguide.org website listed below for more information): S = Set a quit date. Choose a date within the next 2 weeks, so you have enough time to prepare without losing your motivation to quit. If you mainly smoke at work, quit on the weekend, so you have a few days to adjust to the change. T = Tell family, friends, and co-workers that you plan to quit. Let your friends and family in on your plan to quit smoking and tell them you need their support and encouragement to stop. Look for a quit jessica who wants to stop smoking as well. You can help each other get through the rough times. A = Anticipate and plan for the challenges you'll face while quitting. Most people who begin smoking again do so within the first 3 months. You can help yourself make it through by preparing ahead for common challenges, such as nicotine withdrawal and cigarette cravings. R = Remove cigarettes and other tobacco products from your home, car, and work. Throw away all your cigarettes (no emergency pack!), lighters, ashtrays, and matches. Wash your clothes and freshen up anything that smells like smoke. Shampoo your car, clean your drapes and carpet, and steam your furniture. T = Talk to your doctor about getting help to quit. Your doctor can prescribe medication to help with withdrawal and suggest other alternatives. If you can't see a doctor, you can get many products over the counter at your local pharmacy or grocery store, including the nicotine patch, nicotine lozenges, and nicotine gum. Resources for Quitting Smoking: <https:// www.[place].gov/documents/[facility]/Quit_Tobacco_Resources_for_patients_313480_7.pdf > Supplementation: Take recommended dosages of Vitamin D and Calcium to help fortify your bones and help them to heal. See your health maintenance packet for dosages and recommended levels. DVT/VTE prophylaxis: You will be given compression stockings from the hospital. Wear these daily for the first two weeks after surgery. You may take them off at night. You may be prescribed a medication to help thin your blood. Take this as directed. If you are not prescribed this medication, early and frequent ambulation has been shown to be the best prophylaxis to deep vein thrombosis and sequelae related to this event. Follow up in 1 week in office. Do not get incision wet. Keep incision dry and clean. Discharge Disposition: HOME SELF-CARE
--- NOTE | 2020-12-28 15:15 | P.PN ---
Subjective Progress Note Date: 12/28/20 Principal diagnosis: 1. 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 s/p L2-P fusion Patient was seen at bedside this morning resting comfortably lying semirecumbent bed. Patient says she did get up with physical therapy this morning and walked out into the hallway. Patient says she was also up to the chair next to her bed this morning. Patient does say her back is feeling somewhat painful today. Patient does say the pain medication has helped control some of her pain. Patient also states since her first back surgery she still is having some right leg pain. Patient denies chest pain, fever, shortness of breath, nausea, vomiting, change in vision, loss of bowel/bladder control. Objective - Vital Signs Vital signs: Vital Signs Temp 97.9 F 12/28/20 12:20 Pulse 83 12/28/20 12:20 Resp 16 12/28/20 12:20 BP 102/64 12/28/20 12:20 Pulse Ox 97 12/28/20 12:20 Intake & Output 12/27/20 12/28/20 12/28/20 18:59 06:59 18:59 Intake Total 3731 980 600 Output Total 50 20 Balance 3681 960 600 Weight 98.6 kg Intake: IV 1001 Intake, IV Titration 2250 740 Amount Gentamicin 380 mg In 100 Sodium Chloride 0.9% 100 ml @ 109.5 mls/hr IVPB Q36H [facility] Rx#:[id number] Lactated Ringers 1,000 ml 1150 @ 0 mls/hr IV .[facility] Rx#:[id number] Lactated Ringers 1,000 ml 240 @ 20 mls/hr IV .Q24H [facility] Rx#:[id number] Vancomycin 1,750 mg In 1000 500 Sodium Chloride 0.9% 500 ml 500 ml @ 167 mls/hr IVPB Q24H [facility] Rx#: [id number] Oral 480 240 600 Output: Drainage 20 Back 20 Estimated Blood Loss 50 Other: # Voids 0 2 2 - Exam Spine: Inspection: Incision is clean, dry, intact. Sutures are in good place and well aligned with everted edges. Drain was removed. 4 x 4 with Tegaderm was placed over incision where drain was Palpation: There is moderate tenderness to palpation over the incision. Rest exam nontender to palpation Range of motion: Patient is able to flex and extend hips bilaterally. Patient is able to flex and extend knees. Patient can dorsiflex and plantar flex ankles. Sensation: Sensation is equal, symmetric, bilaterally intact throughout Special tests: Negative Homans bilaterally Neurovascular status: DP pulses intact, bilaterally 2+. Cap refill under 3 seconds bilaterally. - Labs CBC & Chem 7: 12/28/20 05:43 12/28/20 05:43 Labs: Abnormal Lab Results - Last 24 Hours (Table) 12/27/20 12/27/20 12/27/20 Range/Units 15:01 17:02 21:09 RBC (3.80-5.40) m/uL Hgb (11.4-16.0) gm/dL Hct (34.0-46.0) % RDW (11.5-15.5) % Plt Count (150-450) k/uL Lymphocytes # (1.0-4.8) k/uL Est GFR (CKD-EPI)AfAm (60.0-200.0) Est GFR (CKD-EPI)NonAf (60.0-200.0) Glucose (70-110) mg/dL POC Glucose (mg/dL) 186 H 185 H 261 H (75-99) mg/dL 12/28/20 12/28/20 12/28/20 Range/Units 05:43 05:43 07:13 RBC 3.27 L (3.80-5.40) m/uL Hgb 9.5 L D (11.4-16.0) gm/dL Hct 30.3 L (34.0-46.0) % RDW 16.1 H (11.5-15.5) % Plt Count 117 L (150-450) k/uL Lymphocytes # 0.5 L (1.0-4.8) k/uL Est GFR (CKD-EPI)AfAm 45.3 L (60.0-200.0) Est GFR (CKD-EPI)NonAf 39.1 L (60.0-200.0) Glucose 150 H (70-110) mg/dL POC Glucose (mg/dL) 151 H (75-99) mg/dL 12/28/20 Range/Units 12:22 RBC (3.80-5.40) m/uL Hgb (11.4-16.0) gm/dL Hct (34.0-46.0) % RDW (11.5-15.5) % Plt Count (150-450) k/uL Lymphocytes # (1.0-4.8) k/uL Est GFR (CKD-EPI)AfAm (60.0-200.0) Est GFR (CKD-EPI)NonAf (60.0-200.0) Glucose (70-110) mg/dL POC Glucose (mg/dL) 155 H (75-99) mg/dL Assessment and Plan Assessment: Postoperative day 1 status post Excisional debridment of necrotic skin lumbar spine; Complex wound closure lumbar spine 20 x 8 x 5 cm Plan: 1. Delayed wound healing lumbar spine with dehiscence s/p L2-P fusion - surgery performed yesterday, 12/27/2020 - Excisional debridment of necrotic skin lumbar spine; Complex wound closure lumbar spine 20 x 8 x 5 cm - patient stable at bedside this morning. Plan discharge home today 2. Appreciate medical management 3. Pain management - going home with oxycodone 5 mg/325 mg and Flexeril 5 mg 4. GI prophylaxis - going home with senna 5. DVT prophylaxis - mechanical 6. PT/OT - weightbearing as tolerated with walker as needed 7. Encourage incentive spirometer 8. Discharge planning - plan discharge home today Time with Patient: Less than 30
[2020-12-28] MEDS ORDERED: INSULIN ASPART (NovoLOG) 100 UNIT/ML VIAL SQ SCH (22:03)
[2020-12-29] MEDS ORDERED: GENTAMICIN 120 MG in SODIUM CHLORIDE 0.9% 100 ML IVPB SCH (08:00)
== END 2020-12-28 17:11 | disposition home or self-care (01) ==
LOC: OR 11:10 → 5NMEDONC 14:54 → OR 12-28 17:11
PROVIDERS: ATTEND Orthopaedic Surgery
DX: L76.82 Other postprocedural complications of skin and subcutaneous tissue (principal); I96 Gangrene, not elsewhere classified; T81.31XA Disruption of external operation (surgical) wound, not elsewhere classified, initial encounter; Z98.1 Arthrodesis status; E11.9 Type 2 diabetes mellitus without complications; K21.9 Gastro-esophageal reflux disease without esophagitis; E78.5 Hyperlipidemia, unspecified; M19.90 Unspecified osteoarthritis, unspecified site; G47.30 Sleep apnea, unspecified; Z20.822 Contact with and (suspected) exposure to COVID-19; I13.0 Hypertensive heart and chronic kidney disease with heart failure and stage 1 through stage 4 chronic kidney disease, or unspecified chronic kidney disease; I50.9 Heart failure, unspecified; N18.30 Chronic kidney disease, stage 3 unspecified; E11.22 Type 2 diabetes mellitus with diabetic chronic kidney disease; E11.40 Type 2 diabetes mellitus with diabetic neuropathy, unspecified; Z87.442 Personal history of urinary calculi; Z87.440 Personal history of urinary (tract) infections; Z87.01 Personal history of pneumonia (recurrent); I95.1 Orthostatic hypotension; R55 Syncope and collapse; G89.29 Other chronic pain; M54.50 Low back pain, unspecified; M41.9 Scoliosis, unspecified; G43.909 Migraine, unspecified, not intractable, without status migrainosus; G56.03 Carpal tunnel syndrome, bilateral upper limbs; M10.9 Gout, unspecified; Z86.711 Personal history of pulmonary embolism; Z95.810 Presence of automatic (implantable) cardiac defibrillator; Z98.891 History of uterine scar from previous surgery; Z90.49 Acquired absence of other specified parts of digestive tract; Z90.710 Acquired absence of both cervix and uterus; Z95.0 Presence of cardiac pacemaker; Z96.653 Presence of artificial knee joint, bilateral; Z98.42 Cataract extraction status, left eye; Z98.41 Cataract extraction status, right eye; F41.9 Anxiety disorder, unspecified; Z80.0 Family history of malignant neoplasm of digestive organs; Z80.1 Family history of malignant neoplasm of trachea, bronchus and lung; Z80.41 Family history of malignant neoplasm of ovary; Z80.49 Family history of malignant neoplasm of other genital organs; Z79.82 Long term (current) use of aspirin; Z79.4 Long term (current) use of insulin; Z79.51 Long term (current) use of inhaled steroids; Z79.899 Other long term (current) drug therapy; E03.9 Hypothyroidism, unspecified; J44.9 Chronic obstructive pulmonary disease, unspecified
CPT/HCPCS: 13160; 94640 ×4; 94760; 97161; 80048 ×2; 85025 ×2; 80170; 83036; 87635; J2250; J3370; J0330; J1580; J1100; J2710; J2405; J0690; J2001; J3010; J1170 ×3

== ENCOUNTER → 2021-03-05 | Day surgery (SDC) | payer MEDICARE, OTHER ==
[2021-02-28 08:40] VITALS: BMI 34.9
[~2021-03-05] MED LIST changes: -ACETAMINOPHEN TAB 500 MG TAB PO PRN; +LACTATED RINGERS 1,000 ML IV SCH; -ONDANSETRON 4 MG/2 ML VIAL IVP PRN; +PROPOFOL 10 MG/ML 20 ML VIAL IV ONE; +SODIUM CHLORIDE 0.9% 1,000 ML IV SCH; +SODIUM CHLORIDE 0.9% 500 ML 500 ML IV ONE; -VANCOMYCIN 1,500 MG in SODIUM CHLORIDE 0.9% 250 ML IVPB PRN; +fentaNYL (PF) 50 MCG/ML 2 ML AMP ONE
[2021-03-05 06:41] LABS: Glucose,Whole Blood 156 mg/dL (75-99)
[2021-03-05 06:42] VITALS: RESP 16; TEMP 98
--- NOTE | 2021-03-05 07:52 | P.EPPROC ---
- EP Procedure Note Electrophysiology Procedure Note: Diagnosis Congestive heart failure class III Severe LV dysfunction, nonischemic cardiomyopathy Status post Metronic biventricular ICD Procedures performed Defibrillation level testing under anesthesia Biventricular ICD interrogation with reprogramming Details Biventricular ICD was interrogated and reprogrammed Defibrillation level testing was performed and anesthesia Shock and T wave protocol was used to induce ventricular fibrillation This was adequately and appropriately detected at least sensitivity and successfully internally defibrillated with a 10 J shock, no post shock noise Charge time 1.84 seconds Dropouts plan Shocking impedance 39 ohms Biventricular ICD was reprogrammed First cardioversion 10 J Appropriate antitachycardia pacing cardioversion and defibrillation reprogrammed Plan Continue heart failure medications and follow with Dr. Ling Follow up in the device clinic after 4 months
[2021-03-05 08:25] VITALS: PULSE 68
[2021-03-05 08:35] VITALS: BP 110/64
== END | disposition home or self-care (01) ==
LOC: CATHEP 06:03
PROVIDERS: ATTEND Internal Medicine Clinical Cardiac Electrophysiology
DX: Z45.02 Encounter for adjustment and management of automatic implantable cardiac defibrillator (principal); I42.8 Other cardiomyopathies; I11.0 Hypertensive heart disease with heart failure; I13.0 Hypertensive heart and chronic kidney disease with heart failure and stage 1 through stage 4 chronic kidney disease, or unspecified chronic kidney disease; E11.22 Type 2 diabetes mellitus with diabetic chronic kidney disease; N18.31 Chronic kidney disease, stage 3a; I50.9 Heart failure, unspecified; I44.7 Left bundle-branch block, unspecified; Z20.822 Contact with and (suspected) exposure to COVID-19; E11.40 Type 2 diabetes mellitus with diabetic neuropathy, unspecified; G89.29 Other chronic pain; M54.9 Dorsalgia, unspecified; M19.90 Unspecified osteoarthritis, unspecified site; E78.5 Hyperlipidemia, unspecified; Z79.4 Long term (current) use of insulin; E66.9 Obesity, unspecified; Z68.36 Body mass index [BMI] 36.0-36.9, adult; J45.909 Unspecified asthma, uncomplicated; G47.33 Obstructive sleep apnea (adult) (pediatric); Z87.442 Personal history of urinary calculi; Z79.82 Long term (current) use of aspirin; Z79.51 Long term (current) use of inhaled steroids; Z79.899 Other long term (current) drug therapy; Z79.891 Long term (current) use of opiate analgesic
CPT/HCPCS: 93642; 87635; J3010; J2704

== ENCOUNTER → 2021-08-15 | Outpatient (CLI) | payer MEDICARE, OTHER ==
[2021-08-15 09:08] VITALS: BP 104/66; PULSE 84; RESP 17; TEMP 98.3
--- NOTE | 2021-08-15 09:26 | P.PN ---
Subjective Progress Note Date: 08/15/21 Principal diagnosis: lump left breast fibrocystic breast changes Yani is a 65-year-old white female seen in consultation for DR. Vishal Snell on 04-13-19 regarding an abnormal finding on routine screening mammogram performed on [id number] she was noted to have focal asymmetry in the upper outer quadrant of the right breast. Additional views were recommended. Additional views of the right breast were performed on 1719 which showed a persistent 6 mm focal asymmetry. She subsequently underwent an ultrasound of the right breast on the same day which did not reveal any sonographic correlate. She is status post left breast core biopsy in 2010 which was a benign cyst. She underwent a stereotactic core biopsy of the area of concern on . This was benign breast with fibrocystic changes and prominent adipose tissue. It was reviewed with radiology and felt to be benign specific. At this time she has a repeat right breast mammogram performed [id number] which is felt to be benign BIRADS 2. She had a bilateral mammogram on 04-16-20 which was benign BIRAD 1. She does not feel any lumps masses or skin changes in her breasts. She has no nipple discharge for which she is concerned. She has no complaint of any recent trauma or infection in the breast. She is complaining of a nodule in her left breast. It has been present about 1 month. She is not complaining of any nipple discharge or skin changes. She states the nodule has not changed in size. She does have a bruise at that site, she has a new dog which did jump on her breast. Her last bilateral mammogram was on 04-18-21 which was a bilateral 3-D mammogram and felt to be benign BIRADS 2. The mammograms were personally reviewed. caffiene: 1 cups/day nicotine: none chocolate: occasional hormones: none Family History: mother: ovarian, cervical cancer from this father: stomach brother: lung sister: 6th bout of cancer, colon maternal uncle: two brain, and lung cancer Hormonal History: menarche: 7 , breast fed: no, first born at 22 menopause: 38, hysterectomy at 38 took both ovaries BCP: 1 year hormones: none Surgical History: 1. two C sections 2. bilateral vein stripping 3. bilateral knee replacement 4. gallbladder 5. 4 lithotripsy 6. kidney surgery for stones 7. 4 back surgeries 8. cataract surgery pending, as well as pacemaker replacement and back surgery Medical History: 1. CHF 2. renal failure 3. GERD 4. sepsis/ 2014 from UTI 5. diabetes 6. migraines 7. hypotension 8. pneumonia in the past 9. thrombocytopenia Social History: smoke: none alcohol: none drugs: none - Constitutional Constitutional: Reports sweats - EENT Comment: beginning of cataracts Ears: deny: decreased hearing, tinnitus Ears, nose, mouth and throat: Reports headache - Breasts Breasts: bilateral: as per HPI - Cardiovascular Comment: CHF, pacemaker for bradycardia - Respiratory Comment: asthma, bronchitis, pneumonia five times - Gastrointestinal Comment: GERD - Genitourinary (Female) Genitourinary: Reports kidney stones - Menstruation Menstruation: Reports post hysterectomy - Musculoskeletal Comment: arthritis - Integumentary Integumentary: Denies pruritus, Denies rash - Neurological Comment: neurapathy in feet Neurological: Reports numbness, Denies weakness - Psychiatric Psychiatric: Reports anxiety, Reports depression - Endocrine Comment: diabetes - Hematologic/Lymphatic Comment: being followed by a thoracic surgeon ? Aneurysm, aspirin, low platelet count as per kidney MD - Allergic/Immunologic Allergic/Immunologic: Reports as per HPI Objective - Vital Signs Vital signs: Vital Signs Temp 98.3 F 08/15/21 09:06 Pulse 84 08/15/21 09:06 Resp 17 08/15/21 09:06 BP 104/66 08/15/21 09:06 Pulse Ox 96 08/15/21 09:06 FiO2 Intake & Output 08/14/21 08/15/21 08/15/21 18:59 06:59 18:59 Weight 108.862 kg - Exam BMI: 39.9 - Constitutional General appearance: Present: cooperative - EENT Eyes: Present: EOMI ENT: Present: hearing grossly normal - Neck Neck: Present: normal ROM - Respiratory Respiratory: bilateral: CTA - Cardiovascular Heart sounds: normal: S1, S2 - Gastrointestinal General gastrointestinal: Present: soft - Integumentary Integumentary: Present: normal turgor - Musculoskeletal Musculoskeletal Comment(s): uses a walker back surgery in the past - Psychiatric Psychiatric: Present: A&O x's 3, appropriate affect, intact judgment & insight - Additional findings Additional findings: Breast Exam: BRA; 44D Inspection: Bilateral grade 3 ptosis Palpation: Right breast: Multiple positional exam fibrocystic changes no dominant masses or nodules of concern Right axilla: No adenopathy of concern Left breast: Ecchymosis medial area of the breast and approximately 3 cm superior to that area and near that site there is approximately a 1-1/2 cm area of nodularity Left axilla: No adenopathy of concern Assessment and Plan Assessment: 1. CHF 2. renal failure 3. GERD 4. sepsis/ 2014 from UTI 5. diabetes 6. migraines 7. hypotension 8. pneumonia in the past 9. thrombocytopenia 10. Nodule left breast near area of ecchymosis Plan: Ultrasound the left breast area of palpable change If the area appears to be consistent with a hematoma on ultrasound most likely repeat the ultrasound in 6 months to assure the area is decreasing in size. If it is suspicious we'll consider a biopsy. CC: DR. Vishal Snell
== END ==
LOC: WWCWWP 09:00
PROVIDERS: ATTEND Surgery
DX: N64.89 Other specified disorders of breast (principal); R58 Hemorrhage, not elsewhere classified; I95.9 Hypotension, unspecified; N19 Unspecified kidney failure; D69.6 Thrombocytopenia, unspecified; E11.9 Type 2 diabetes mellitus without complications; G43.909 Migraine, unspecified, not intractable, without status migrainosus; I50.9 Heart failure, unspecified; K21.9 Gastro-esophageal reflux disease without esophagitis; Z86.19 Personal history of other infectious and parasitic diseases; Z87.440 Personal history of urinary (tract) infections

== ENCOUNTER → 2021-08-19 | Outpatient (CLI) | payer MEDICARE, OTHER ==
--- NOTE | 2021-08-19 09:01 | USB ---
Reason for Exam: Clinical finding. Indicated Problems: Palpable abnormality. Patient History: Menarche at age 9. First Full-Term at age 22. Left ovary removed at age 42. Right ovary removed at age 42. Hysterectomy at age 42. Postmenopausal. Patient used Estrogen for 1 year. Hormonal Contraceptives, from age 16 until age 19. 2009, Benign Stereotactic Core Biopsy on the left side. 04/14/2019, Benign Core Biopsy on the right side. Risk Values: Michelle 5 year model risk: 2.5%. NCI Lifetime model risk: 8.8%. Prior Study Comparison: 10/17/2019 Right Diagnostic Mammogram, [facility]. 04/16/2020 Bilateral Screening Mammogram, [facility]. 04/18/2021 Bilateral Screening Mammogram, [facility]. Findings: The whole breast of the left breast, the axilla of the left breast and the retroareolar of the left breast were scanned. Left breast 900 8 cfn = complex area seen superficially = 2.1 x 1.7 x 1.2 cmThere is a hyperechoic area measuring 2.1 x 1.2 x 1.7 cm with a hypoechoic center corresponding to the palpable abnormality. This just below the skin surface. Patient reports this palpable abnormality has been diminishing in size over the period and the injury site with bruising. Findings can be compatible with a resolving hematoma. Continued close monitoring is recommended. Follow-up exam in 3 months with ultrasound is recommended. If this should increase in size, consider biopsy at that time. Overall Assessment: Probably benign, BI-RAD 3 Management: Diagnostic Breast Ultrasound of the left breast in 3 months. A clinical breast exam by your physician is recommended on an annual basis and results should be correlated with mammographic findings. Electronically signed and approved by: Wan Oliva D.O. Radiologis
== END | disposition home or self-care (01) ==
LOC: RADUSWWP 08:10
PROVIDERS: ATTEND Surgery
DX: R92.8 Other abnormal and inconclusive findings on diagnostic imaging of breast (principal); Z78.0 Asymptomatic menopausal state

== ENCOUNTER → 2021-09-12 | Outpatient (CLI) | payer MEDICARE, OTHER ==
[2021-09-12 09:36] VITALS: BP 118/75; PULSE 84; RESP 17; TEMP 97.9
--- NOTE | 2021-09-12 10:02 | P.PN ---
Subjective Progress Note Date: 09/12/21 Principal diagnosis: ultrasound left breast 08-19-21/ probable resolving hematoma lump left breast fibrocystic breast changes Yani is a 65-year-old white female seen in consultation for DR. Vishal Snell on 04-13-19 regarding an abnormal finding on routine screening mammogram performed on [id number] she was noted to have focal asymmetry in the upper outer quadrant of the right breast. Additional views were recommended. Additional views of the right breast were performed on 1719 which showed a persistent 6 mm focal asymmetry. She subsequently underwent an ultrasound of the right breast on the same day which did not reveal any sonographic correlate. She is status post left breast core biopsy in 2010 which was a benign cyst. She underwent a stereotactic core biopsy of the area of concern on . This was benign breast with fibrocystic changes and prominent adipose tissue. It was reviewed with radiology and felt to be benign specific. At this time she has a repeat right breast mammogram performed [id number] which is felt to be benign BIRADS 2. She had a bilateral mammogram on 04-16-20 which was benign BIRAD 1. She does not feel any lumps masses or skin changes in her breasts. She has no nipple discharge for which she is concerned. She has no complaint of any recent trauma or infection in the breast. She is complaining of a nodule in her left breast. It has been present about 1 month. She is not complaining of any nipple discharge or skin changes. She states the nodule has not changed in size. She does have a bruise at that site, she has a new dog which did jump on her breast. Her last bilateral mammogram was on 04-18-21 which was a bilateral 3-D mammogram and felt to be benign BIRADS 2. The mammograms were personally reviewed. 09-12-21 The patient had a left breast ultrasoud done on 08-19-21; findings were consis tent with most likely a resolving hematoma. The patient states the area has completely resolved and at this time she does not feel anything of concern. This was considered a probably benign BIRADS 3 and diagnostic ultrasound of the left breast in 3 months was recommended. Patient's recent blood work revealed low platelets and she is scheduled to see a director product safety on 8221. caffiene: 1 cups/day nicotine: none chocolate: occasional hormones: none Family History: mother: ovarian, cervical cancer from this father: stomach brother: lung sister: 6th bout of cancer, colon maternal uncle: two brain, and lung cancer Hormonal History: menarche: 7 , breast fed: no, first born at 22 menopause: 38, hysterectomy at 38 took both ovaries BCP: 1 year hormones: none Surgical History: 1. two C sections 2. bilateral vein stripping 3. bilateral knee replacement 4. gallbladder 5. 4 lithotripsy 6. kidney surgery for stones 7. 4 back surgeries 8. cataract surgery pending, as well as pacemaker replacement and back surgery Medical History: 1. CHF 2. renal failure 3. GERD 4. sepsis/ 2014 from UTI 5. diabetes 6. migraines 7. hypotension 8. pneumonia in the past 9. thrombocytopenia Social History: smoke: none alcohol: none drugs: none - Constitutional Constitutional: Reports sweats - EENT Comment: beginning of cataracts Ears: deny: decreased hearing, tinnitus Ears, nose, mouth and throat: Reports headache - Breasts Breasts: bilateral: as per HPI - Cardiovascular Comment: CHF, pacemaker for bradycardia - Respiratory Comment: asthma, bronchitis, pneumonia five times - Gastrointestinal Comment: GERD - Genitourinary (Female) Genitourinary: Reports kidney stones - Menstruation Menstruation: Reports post hysterectomy - Musculoskeletal Comment: arthritis - Integumentary Integumentary: Denies pruritus, Denies rash - Neurological Comment: neurapathy in feet Neurological: Reports numbness, Denies weakness - Psychiatric Psychiatric: Reports anxiety, Reports depression - Endocrine Comment: diabetes - Hematologic/Lymphatic Comment: being followed by a thoracic surgeon ? Aneurysm, aspirin, low platelet count as per kidney MD - Allergic/Immunologic Allergic/Immunologic: Reports as per HPI Objective - Vital Signs Vital signs: Vital Signs Temp 97.9 F 09/12/21 09:34 Pulse 84 09/12/21 09:34 Resp 17 09/12/21 09:34 BP 118/75 09/12/21 09:34 Pulse Ox 97 09/12/21 09:34 FiO2 Intake & Output 09/11/21 09/12/21 09/12/21 18:59 06:59 18:59 Weight 107.955 kg - Additional findings Additional findings: Examination limited to the area of the left breast which had a prior palpable nodule at this time ecchymosis has totally resolved as well as the palpable abnormality Assessment and Plan Assessment: Impression: Probable resolving hematoma left breast after trauma when her dog jumped on her Low platelets Plan: Appointment with hematology Repeat left breast ultrasound in 6 months with physician exam at that time Patient to follow up sooner any questions or concerns CC: Dr. Vishal Chavis
== END ==
LOC: WWCWWP 08:46
PROVIDERS: ATTEND Surgery
DX: N63.0 Unspecified lump in unspecified breast (principal); D69.6 Thrombocytopenia, unspecified; I50.9 Heart failure, unspecified; E11.9 Type 2 diabetes mellitus without complications; G43.909 Migraine, unspecified, not intractable, without status migrainosus

== ENCOUNTER → 2021-10-15 | Outpatient (CLI) | payer MEDICARE, OTHER ==
--- NOTE | 2021-10-15 14:56 | CT ---
EXAMINATION TYPE: CT chest wo con CT DLP: 804 mGycm, Automated exposure control for dose reduction was used. DATE OF EXAM: 10/15/2021 1:49 PM COMPARISON: Multiple CTs of the chest with most recent on 10/15/2020 CLINICAL INDICATION:Female, 65 years old with history of I71.2 THORACIC AORTIC ANEURYSM; TECHNIQUE: Multiple axial images were obtained through the chest. Sagittal and coronal reformats were created for review. Contrast used: none. Oral contrast used: none. FINDINGS: LUNGS/ PLEURA: No focal consolidation, pneumothorax or pleural effusion no greater than 6 mm pulmonar y nodules. AIRWAY: Patent and unremarkable. HEART: The left atrium is enlarged for size. Cardiac conduction device with leads terminating in the right ventricle on right atrium. There is moderate to severe coronary artery atherosclerosis. MEDIASTINUM: No gross evidence of adenopathy. VASCULATURE: No aortic aneurysm. Mild dilation of the ascending thoracic aorta measuring up to 4.1 c m which is similar prior in 2020. There is mild dilation of the pulmonary trunk measuring up to 4.0 c m. MUSCULOSKELETAL: No acute osseous abnormalities, severe multilevel disc degeneration changes and brid ging osteophytes are seen throughout the spine with mild scoliosis changes. SOFT TISSUES/LYMPH NODES: Unremarkable. LOWER NECK: No significant findings. UPPER ABDOMEN: Fixation hardware seen within the lower lumbar spine. There is left renal metallic trevon gical clips are present. IMPRESSION: 1. Mild dilation/ectasia with smooth tapering of the ascending thoracic aorta up to 4.1 cm. This is not significantly changed from 10/15/2020. 2. Pulmonary hypertension. 3. Cardiomegaly. 4. Moderate coronary artery atherosclerosis.
== END | disposition home or self-care (01) ==
LOC: RADCTMAIN 13:19
PROVIDERS: ATTEND Family Medicine
DX: I27.20 Pulmonary hypertension, unspecified (principal); I25.10 Atherosclerotic heart disease of native coronary artery without angina pectoris; I77.810 Thoracic aortic ectasia; I51.7 Cardiomegaly
CPT/HCPCS: 71250

== ENCOUNTER → 2022-03-06 | Outpatient (CLI) | payer MEDICARE, OTHER ==
--- NOTE | 2022-03-06 09:53 | USB ---
Patient History: Menarche at age 9. First Full-Term at age 22. Left ovary removed at age 42. Right ovary removed at age 42. Hysterectomy at age 42. Postmenopausal. Patient used Estrogen for 1 year. Hormonal Contraceptives, from age 16 until age 19. 2009, Benign Stereotactic Core Biopsy on the left side. 04/14/2019, Benign Core Biopsy on the right side. Risk Values: Michelle 5 year model risk: 2.5%. NCI Lifetime model risk: 8.4%. Technique: Method: Targeted. Prior Study Comparison: 10/17/2019 Right Diagnostic Mammogram, [facility]. 04/16/2020 Bilateral Screening Mammogram, [facility]. 04/18/2021 Bilateral Screening Mammogram, [facility]. Findings: The upper inner quadrant of the left breast, the lower inner quadrant of the right breast, the axilla of the left breast and the retroareolar of the left breast were scanned. Targeted ultrasound medial half of the left breast from 6:00 to 12:00 including the subareolar region and axilla. The previous palpable echogenic lesion at the 9:00 position has resolved. The patient also reports resolution of the previous bruising and palpable abnormality. Findings suggest interval involution of previous posttraumatic hematoma. Incidental borderline enlarged but benign-appearing axillary lymph node measuring 3.5 x 1.4 x 1.3 cm. Large fatty hilum and very thin cortex. No other solid or cystic lesion. Patient due for her annual exam in one month. Overall Assessment: Benign, BI-RAD 2 Management: Screening Mammogram of both breasts in 1 month. 1. Patient should continue monthly self breast exams. 2. A clinical breast exam by your physician is recommended on an annual basis. 3. This exam should not preclude additional follow-up of suspicious palpable abnormalities. Results were given to the patient verbally at the time of exam. Electronically signed and approved by: José Miguel Bhandari M.D. Radiologist
== END | disposition home or self-care (01) ==
LOC: RADUSWWP 08:54
PROVIDERS: ATTEND Surgery
DX: R92.8 Other abnormal and inconclusive findings on diagnostic imaging of breast (principal); Z78.0 Asymptomatic menopausal state; Z90.721 Acquired absence of ovaries, unilateral

== ENCOUNTER → 2022-03-14 | Outpatient (CLI) | payer MEDICARE, OTHER ==
[2022-03-14 09:57] VITALS: BP 94/62; PULSE 63; RESP 18; TEMP 97.7
--- NOTE | 2022-03-14 10:36 | P.PN ---
Subjective Progress Note Date: 03/14/22 Principal diagnosis: fibrocystic breast changes ultrasound left breast 08-19-21/ probable resolving hematoma lump left breast fibrocystic breast changes Yani is a 65-year-old white female seen in consultation for DR. Vishal Snell on 04-13-19 regarding an abnormal finding on routine screening mammogram performed on 339641 she was noted to have focal asymmetry in the upper outer quadrant of the right breast. Additional views were recommended. Additional views of the right breast were performed on 1719 which showed a persistent 6 mm focal asymmetry. She subsequently underwent an ultrasound of the right breast on the same day which did not reveal any sonographic correlate. She is status post left breast core biopsy in 2010 which was a benign cyst. She underwent a stereotactic core biopsy of the area of concern on . This was benign breast with fibrocystic changes and prominent adipose tissue. It was reviewed with radiology and felt to be benign specific. At this time she has a repeat right breast mammogram performed [id number] which is felt to be benign BIRADS 2. She had a bilateral mammogram on 04-16-20 which was benign BIRAD 1. She does not feel any lumps masses or skin changes in her breasts. She has no nipple discharge for which she is concerned. She has no complaint of any recent trauma or infection in the breast. She is complaining of a nodule in her left breast. It has been present about 1 month. She is not complaining of any nipple discharge or skin changes. She states the nodule has not changed in size. She does have a bruise at that site, she has a new dog which did jump on her breast. Her last bilateral mammogram was on 04-18-21 which was a bilateral 3-D mammogram and felt to be benign BIRADS 2. The mammograms were personally reviewed. 09-12-21 The patient had a left breast ultrasoud done on 08-19-21; findings were consistent with most likely a resolving hematoma. The patient states the area has completely resolved and at this time she does not feel anything of concern. This was considered a probably benign BIRADS 3 and diagnostic ultrasound of the left breast in 3 months was recommended. Patient's recent blood work revealed low platelets and she is scheduled to see a internet network specialist on [id number]. 03-14-22 Patient states that the area of concern in the breast has completely resolved at this time. She had an ultrasound of the left breast in 1522. This revealed resolution of the previous lesion at 9:00. The bruising and palpable abnormality have resolved. Findings suggest interval involution of previous posttraumatic hematoma. Incidental borderline enlarged but benign-appearing lymph node was noted. This was a benign BIRADS 2. Screening mammogram of both breast in 1 month was recommended. Michelle Risk 5 year risk: 2.5% lifetime risk: 8.4% Patient has declined chemoprevention. caffiene: 1 cups/day nicotine: none chocolate: occasional hormones: none Family History: mother: ovarian, cervical cancer from this father: stomach brother: lung sister: 6th bout of cancer, colon maternal uncle: two brain, and lung cancer Hormonal History: menarche: 7 , breast fed: no, first born at 22 menopause: 38, hysterectomy at 38 took both ovaries BCP: 1 year hormones: none Surgical History: 1. two C sections 2. bilateral vein stripping 3. bilateral knee replacement 4. gallbladder 5. 4 lithotripsy 6. kidney surgery for stones 7. 4 back surgeries 8. cataract surgery pending, as well as pacemaker replacement and back surgery Medical History: 1. CHF 2. renal failure 3. GERD 4. sepsis/ 2014 from UTI 5. diabetes 6. migraines 7. hypotension 8. pneumonia in the past 9. thrombocytopenia Social History: smoke: none alcohol: none drugs: none - Constitutional Constitutional: Reports sweats - EENT Comment: beginning of cataracts Ears: deny: decreased hearing, tinnitus Ears, nose, mouth and throat: Reports headache - Breasts Breasts: bilateral: as per HPI - Cardiovascular Comment: CHF, pacemaker for bradycardia - Respiratory Comment: asthma, bronchitis, pneumonia five times - Gastrointestinal Comment: GERD - Genitourinary (Female) Genitourinary: Reports kidney stones - Menstruation Menstruation: Reports post hysterectomy - Musculoskeletal Comment: arthritis - Integumentary Integumentary: Denies pruritus, Denies rash - Neurological Comment: neurapathy in feet Neurological: Reports numbness, Denies weakness - Psychiatric Psychiatric: Reports anxiety, Reports depression - Endocrine Comment: diabetes - Hematologic/Lymphatic Comment: being followed by a thoracic surgeon ? Aneurysm, aspirin, low platelet count as per kidney MD - Allergic/Immunologic Allergic/Immunologic: Reports as per HPI Objective - Vital Signs Vital signs: Vital Signs Temp 97.7 F 03/14/22 09:52 Pulse 63 03/14/22 09:52 Resp 18 03/14/22 09:52 BP 94/62 03/14/22 09:52 Pulse Ox 96 03/14/22 09:52 FiO2 Intake & Output 03/13/22 03/14/22 03/14/22 18:59 06:59 18:59 Weight 107.048 kg - Constitutional General appearance: Present: cooperative - EENT Eyes: Present: EOMI ENT: Present: hearing grossly normal - Neck Neck: Present: normal ROM - Respiratory Respiratory: bilateral: CTA - Cardiovascular Heart sounds: normal: S1, S2 - Gastrointestinal General gastrointestinal: Present: soft - Integumentary Integumentary: Present: normal turgor - Musculoskeletal Musculoskeletal Comment(s): uses a walker - Psychiatric Psychiatric: Present: A&O x's 3, appropriate affect, intact judgment & insight - Additional findings Additional findings: Breast examination: Bra: 44DD Inspection: bilateral brade 3 ptosis palpation: right breast: Examination setting does not reveal any dominant masses or nodules of concern Right axilla: No adenopathy of concern Left breast: Examination sitting does not reveal any dominant masses or nodules of concern fibrocystic changes Left axilla: No adenopathy of concern Assessment and Plan Assessment: Impression: 1. CHF 2. renal failure 3. GERD 4. sepsis/ 2014 from UTI 5. diabetes 6. migraines 7. hypotension 8. pneumonia in the past 9. thrombocytopenia 10. fibrocystic breast changes Plan: bilateral mammogram in 1 month followup at that time CC: Dr. Vishal Chavis
== END ==
LOC: WWCWWP 09:18
PROVIDERS: ATTEND Surgery
DX: N60.11 Diffuse cystic mastopathy of right breast (principal); N60.12 Diffuse cystic mastopathy of left breast; G43.909 Migraine, unspecified, not intractable, without status migrainosus; K21.9 Gastro-esophageal reflux disease without esophagitis; Z80.1 Family history of malignant neoplasm of trachea, bronchus and lung; E11.22 Type 2 diabetes mellitus with diabetic chronic kidney disease; N19 Unspecified kidney failure; I95.9 Hypotension, unspecified; D69.6 Thrombocytopenia, unspecified; Z87.440 Personal history of urinary (tract) infections

== ENCOUNTER 2022-06-08 22:54 | Observation (INO) | payer MEDICARE, OTHER ==
[2022-06-09 00:30] LABS: Albumin 3.8 g/dL (3.5-5.0); Calcium 8.9 mg/dL (8.4-10.2); Potassium 4.8 mmol/L (3.5-5.1); Total Bilirubin 0.5 mg/dL (0.2-1.3); Total Protein 6.1 g/dL (6.3-8.2)
--- NOTE | 2022-06-09 00:56 | ED ---
SOB HPI <Carlos Hubbard - Last Filed: 06/09/22 01:31> - General Source: patient Mode of arrival: ambulatory Limitations: no limitations <Maryam Jaffe - Last Filed: 06/11/22 00:55> - General Chief Complaint: Shortness of Breath Stated Complaint: Covid Positive Pneumonia Time Seen by Provider: 06/08/22 23:00 - History of Present Illness Initial Comments: 66-year-old female past medical history of asthma, diabetes, hypertension who presents to the emergency department reporting shortness of breath. States that she began feeling ill on Thursday night. Had chills, nonproductive cough, nausea and shortness of breath. She took a home Covid test on Thursday and found that she was Covid positive. She called her primary doctor who placed her on Decadron 6 mg daily. States that she is getting worse. She made 2 phone calls to her primary care doctor today. Around 10:00 he told her to go into the emergency department if she was short of breath. She has a history of asthma and does use inhalers. She denies any chest pain. No recorded fevers but admits to chills. No abdominal pain. Does admit to some diarrhea. No other alleviating, Perceptin or modifying factors (Maryam Jaffe) - Related Data Home Medications Medication Instructions Recorded Confirmed Aspirin EC [Ecotrin Low Dose] 81 mg PO HS 11/02/18 06/09/22 Montelukast [Singulair] 10 mg PO HS 11/02/18 06/09/22 Atorvastatin [Lipitor] 20 mg PO HS 09/05/19 06/09/22 Meclizine [Antivert] 12.5 mg PO Q8H 09/05/19 06/09/22 Topiramate [Topamax] 50 mg PO HS 09/05/19 06/09/22 carvediloL [Coreg] 6.25 mg PO BID 09/05/19 06/09/22 calcitrioL [Rocaltrol] 0.25 mcg PO NORRIS 12/06/19 06/09/22 Budesonide [Pulmicort Flexhaler] 2 puff INHALATION RT-BID 02/09/20 06/09/22 Docusate [Colace] 100 mg PO DAILY 02/09/20 06/09/22 Insulin Glargine,Hum.rec.anlog 36 unit SQ HS 02/09/20 06/09/22 [Lantus Solostar Pen] Insulin Lispro [humaLOG Kwikpen] 10 unit SQ TID-W/MEALS 02/09/20 06/09/22 Magnesium Oxide [Shaikh] 1,000 mg PO HS 02/09/20 06/09/22 Albuterol Sulfate [Ventolin HFA] 2 puff INHALATION RT-QID PRN 04/20/20 06/09/22 Azithromycin [Zithromax Z Pack] See Taper PO DIRECTED 06/09/22 06/09/22 Benzonatate 100 mg PO TID 06/09/22 06/09/22 Cyanocobalamin (Vitamin B-12) 1,000 mcg PO DAILY 06/09/22 06/09/22 [Vitamin B-12] Dapagliflozin Propanediol [Farxiga] 5 mg PO DAILY 06/09/22 06/09/22 Ergocalciferol [Vitamin D2 (1250 1,250 mcg PO QMONTHLY 06/09/22 06/09/22 Mcg = [id number] Iu)] Ferrous Sulfate [Feosol] 325 mg PO DAILY 06/09/22 06/09/22 Furosemide [Lasix] 40 mg PO DAILY 06/09/22 06/09/22 Gabapentin 600 mg PO QID 06/09/22 06/09/22 HYDROcodone/APAP 10-325MG [[place] 1 tab PO QID 06/09/22 06/09/22 10-325] Levofloxacin [Levaquin] 250 mg PO DAILY 06/09/22 06/09/22 Midodrine HCl [ProAmatine] 10 mg PO TID 06/09/22 06/09/22 Protonix 40mg Susp Packet 40 mg PO DAILY 06/09/22 06/09/22 Sertraline HCl [Zoloft] 50 mg PO DAILY 06/09/22 06/09/22 allopurinoL 100 mg PO DAILY 06/09/22 06/09/22 dexAMETHasone [Decadron] 6 mg PO DAILY 06/09/22 06/09/22 lisinopriL [Zestril] 2.5 mg PO DAILY 06/09/22 06/09/22 Allergies Allergy/AdvReac Type Severity Reaction Status Date / Time No Known Allergies Allergy Verified 06/09/22 07:27 Review of Systems ROS Other: All systems not noted in ROS Statement are negative. <Carlos Hubbard Brenna - Last Filed: 06/09/22 01:31> ROS Other: All systems not noted in ROS Statement are negative. <Maryam Jaffe Thomas - Last Filed: 06/11/22 00:55> ROS Statement: Those systems with pertinent positive or pertinent negative responses have been documented in the HPI. Past Medical History Past Medical History: Asthma, Diabetes Mellitus, GERD/Reflux, Hyperlipidemia, Musculoskeletal Disorder, Osteoarthritis (OA), Pneumonia, Renal Disease, Sleep Apnea/CPAP/BIPAP, Vascular Disorder Additional Past Medical History / Comment(s): neuropathy bilateral hands/legs/feet, CKD stage III, hx kidney stones, anemia, UTI/septic due to lodged kidney stone, CARLOS with bipap, bronchitis, orthostatic hypotension with near syncope, vertigo, chronic low back pain/DDD, scoliosis, bilateral carpal tunnel syndrome, bilateral varicosities, migraines, SEE DR ALFORD H&P, gout, hx anemia(from nicked vein in left kidney after surgery for kidney stone), "embolism in my chest" History of Any Multi-Drug Resistant Organisms: None Reported Past Surgical History: AICD, Appendectomy, Back Surgery, Cardiac Ablation, Section, Cholecystectomy, Heart Catheterization, Hysterectomy, Joint Replacement, Orthopedic Surgery, Pacemaker Additional Past Surgical History / Comment(s): Rt knee arthroscopy, john total knee arthroplasty, pain clinic procedures, D&C, colonoscopy, bilateral leg varicose vein surgery, lithotripsies, surgical removal of stones, Myelogram(Norberto) 2018, Lumbar fusion L3-4, lumbar puncture for headaches 2019 (had spinal headache post), laminectomy, bakers cyst removed from rt knee, john cataracts, 02/12/21 back surgery with complications Past Anesthesia/Blood Transfusion Reactions: No Reported Reaction Additional Past Anesthesia/Blood Transfusion Reaction / Comment(s): Pt has received blood without reaction. Type of Cardiac Device: Permanent Pacemaker, AICD Device Placement Date:: 09/10/20 Past Psychological History: Anxiety, Depression Smoking Status: Never smoker Past Alcohol Use History: None Reported Past Drug Use History: None Reported - Past Family History Father Family Medical History: Cancer Additional Family Medical History / Comment(s): Stomach cancer. Brother(s) Family Medical History: Cancer Additional Family Medical History / Comment(s): Lung cancer. Sister(s) Family Medical History: Cancer Additional Family Medical History / Comment(s): Sister had stomach/colon/part of pancreas cancers. Mother Family Medical History: Cancer Additional Family Medical History / Comment(s): Ovarian and cervical cancer. <Maryam Jaffe Thomas - Last Filed: 06/11/22 00:55> General Exam Limitations: no limitations General appearance: alert, in no apparent distress Head exam: Present: atraumatic, normocephalic, normal inspection Eye exam: Present: normal appearance, PERRL, EOMI. Absent: scleral icterus, conjunctival injection, periorbital swelling ENT exam: Present: normal exam, mucous membranes moist Neck exam: Present: normal inspection. Absent: tenderness, meningismus, lymphadenopathy Respiratory exam: Present: normal lung sounds bilaterally. Absent: respiratory distress, wheezes, rales, rhonchi, stridor Cardiovascular Exam: Present: regular rate, normal rhythm, normal heart sounds. Absent: systolic murmur, diastolic murmur, rubs, gallop, clicks GI/Abdominal exam: Present: soft, normal bowel sounds. Absent: distended, tenderness, guarding, rebound, rigid Extremities exam: Present: normal inspection, full ROM, normal capillary refill. Absent: tenderness, pedal edema, joint swelling, calf tenderness Back exam: Present: normal inspection Neurological exam: Present: alert, oriented X3, CN II-XII intact Psychiatric exam: Present: normal affect, normal mood Skin exam: Present: warm, dry, intact, normal color. Absent: rash <AlannahMaryam A - Last Filed: 06/11/22 00:55> Course <Carlos Hubbard - Last Filed: 06/09/22 01:31> Vital Signs 06/08/22 06/08/22 06/08/22 22:58 23:25 23:46 Temperature 97.3 F L Pulse Rate 64 Pulse Rate [ Pulse Oximetery ] Respiratory 18 18 43 H Rate Blood Pressure 101/64 Blood Pressure [Right Arm Supine] O2 Sat by Pulse 98 Oximetry 06/08/22 06/09/22 06/09/22 23:50 00:00 00:10 Temperature Pulse Rate 60 60 58 L Pulse Rate [ Pulse Oximetery ] Respiratory 15 17 14 Rate Blood Pressure 106/60 106/60 111/60 Blood Pressure [Right Arm Supine] O2 Sat by Pulse 96 Oximetry 06/09/22 06/09/22 06/09/22 00:20 00:28 00:30 Temperature Pulse Rate 59 L 59 L Pulse Rate [ Pulse Oximetery ] Respiratory 18 17 Rate Blood Pressure 111/60 111/60 111/60 Blood Pressure [Right Arm Supine] O2 Sat by Pulse 98 95 Oximetry 06/09/22 06/09/22 06/09/22 00:40 00:50 01:00 Temperature Pulse Rate 59 L 60 60 Pulse Rate [ Pulse Oximetery ] Respiratory 18 18 20 Rate Blood Pressure 111/60 111/60 111/60 Blood Pressure [Right Arm Supine] O2 Sat by Pulse 97 98 98 Oximetry 06/09/22 06/09/22 06/09/22 01:10 01:20 01:30 Temperature Pulse Rate 60 60 59 L Pulse Rate [ Pulse Oximetery ] Respiratory 18 23 15 Rate Blood Pressure 99/58 99/58 99/58 Blood Pressure [Right Arm Supine] O2 Sat by Pulse 97 97 98 Oximetry 06/09/22 06/09/22 06/09/22 01:37 01:40 01:50 Temperature Pulse Rate 59 L 58 L 60 Pulse Rate [ Pulse Oximetery ] Respiratory 18 16 16 Rate Blood Pressure 118/71 118/71 118/71 Blood Pressure [Right Arm Supine] O2 Sat by Pulse 98 98 97 Oximetry 06/09/22 06/09/22 06/09/22 02:00 02:10 02:20 Temperature 98.3 F Pulse Rate 59 L 59 L 59 L Pulse Rate [ 61 Pulse Oximetery ] Respiratory 18 17 20 Rate Blood Pressure 118/71 122/68 122/68 Blood Pressure 102/63 [Right Arm Supine] O2 Sat by Pulse 100 98 98 Oximetry 06/09/22 06/09/22 06/09/22 02:30 02:40 02:50 Temperature Pulse Rate 59 L 60 60 Pulse Rate [ Pulse Oximetery ] Respiratory 16 11 L 18 Rate Blood Pressure 122/68 122/68 122/68 Blood Pressure [Right Arm Supine] O2 Sat by Pulse 98 97 98 Oximetry 06/09/22 06/09/22 06/09/22 02:59 03:00 03:05 Temperature 98.3 F Pulse Rate 60 Pulse Rate [ 61 Pulse Oximetery ] Respiratory 18 18 Rate Blood Pressure 122/68 122/68 Blood Pressure 102/63 [Right Arm Supine] O2 Sat by Pulse 98 98 100 Oximetry - Reevaluation(s) Reevaluation #1: 06/09/22 01:08 EKG: Paced rhythm with PVC, rate of 59, NJ interval 150, QRS duration 138, QTC 474 (Carlos Hubbard) Medical Decision Making - Lab Data Result diagrams: 06/08/22 00:10 06/08/22 00:10 <Carlos Hubbard - Last Filed: 06/09/22 01:31> - Lab Data Result diagrams: 06/10/22 07:19 06/10/22 07:19 <Maryam Jaffe - Last Filed: 06/11/22 00:55> - Medical Decision Making 66-year-old female diagnosed with coronavirus yesterday resenting for evaluation of shortness of breath and fatigue. Patient's care had been signed out at shift change awaiting x-ray, EKG, laboratory testing. Patient reevaluated, resting comfortably without vital sign abnormalities. She is on supplemental oxygen for comfort. Chest x-ray is clear without focal pneumonia or acute findings. She has mild acute kidney injury with creatinine elevation above baseline. Patient also has a positive d-dimer and given her chronic kidney disease I will order perfusion study. Results are pending. Patient will be admitted for IV hydration, IV steroids. The admitting physician Dr. Snell has been paged. (Carlos Hubbard) Was pt. sent in by a medical professional or institution (, PA, SENIOR CORPORATE ACCOUNTANT, urgent care, hospital, or usp...) When possible be specific @ -Dr. Snell Did you speak to anyone other than the patient for history (EMS, parent, family, police, friend...)? What history was obtained from this source @ -No Did you review nursing and triage notes (agree or disagree)? Why? @ -I reviewed and agree with nursing and triage notes Were old charts reviewed (outside hosp., previous admission, EMS record, old EKG, old radiological studies, urgent care reports/EKG's, usp records)? Report findings @ -Old charts were reviewed Differential Diagnosis (chest pain, altered mental status, abdominal pain women, abdominal pain men, vaginal bleeding, weakness, fever, dyspnea, syncope, headache, dizziness, GI bleed, back pain, seizure, CVA, palpatations, mental health, musculoskeletal)? @ -Differential Dyspnea: Coronary syndrome, arrhythmia, tamponade, asthma, COPD, pulmonary embolism, pneumonia, pneumothorax, pulmonary effusion, anaphylaxis, diabetic ketoacidosis, flailed chest, pulmonary contusion, diaphragmatic rupture, anemia, neuromuscular, this is not meant to be an all-inclusive list. EKG interpreted by me (3pts min.). @ -As above X-rays interpreted by me (1pt min.). @ -Yes CT interpreted by me (1pt min.). @ -None done U/S interpreted by me (1pt. min.). @ -None done What testing was considered but not performed or refused? (CT, X-rays, U/S, labs)? Why? @ -None What meds were considered but not given or refused? Why? @ -None Did you discuss the management of the patient with other professionals (professionals i.e. , PA, SENIOR CORPORATE ACCOUNTANT, lab, RT, psych nurse, social media executive, steel loader, teacher, duty officer, case filler)? Give summary @ -No Was smoking cessation discussed for >3mins.? @ -No Was critical care preformed (if so, how long)? @ -No Were there social determinants of health that impacted care today? How? (Homelessness, low income, unemployed, alcoholism, drug addiction, transportation, low edu. Level, literacy, decrease access to med. care, [facility], rehab)? @ -No Was there de-escalation of care discussed even if they declined (Discuss DNR or withdrawal of care, Hospice)? DNR status @ -No What co-morbidities impacted this encounter? (DM, HTN, Smoking, COPD, CAD, Cancer, CVA, ARF, Chemo, Hep., AIDS, mental health diagnosis, sleep apnea, morbid obesity)? @ -Asthma, obstructive sleep apnea Was patient admitted / discharged? Hospital course, mention meds given and route, prescriptions, significant lab abnormalities, going to OR and other pertinent info. @ -Upon arrival patient is placed into room 6. Thorough history and physical exam was performed. IV is established and laboratory studies are conducted. Case was discussed with Dr. Hubbard who will follow-up on the patient's labs and dispo the patient (Maryam Jaffe) - Lab Data Lab Results 06/08/22 06/08/22 06/08/22 Range/Units 00:10 00:10 00:10 WBC 7.1 (3.8-10.6) k/uL RBC 3.96 (3.80-5.40) m/uL Hgb 12.4 (11.4-16.0) gm/dL Hct 37.6 (34.0-46.0) % MCV 95.0 (80.0-100.0) fL MCH 31.3 (25.0-35.0) pg MCHC 33.0 (31.0-37.0) g/dL RDW 14.9 (11.5-15.5) % Plt Count 105 L (150-450) k/uL MPV 7.9 Neutrophils % 81 % Lymphocytes % 12 % Monocytes % 5 % Eosinophils % 0 % Basophils % 0 % Neutrophils # 5.7 (1.3-7.7) k/uL Lymphocytes # 0.9 L (1.0-4.8) k/uL Monocytes # 0.4 (0-1.0) k/uL Eosinophils # 0.0 (0-0.7) k/uL Basophils # 0.0 (0-0.2) k/uL PT 10.7 (9.0-12.0) sec INR 1.0 (<1.2) APTT 22.4 (22.0-30.0) sec D-Dimer 1.98 H (<0.60) mg/L FEU Sodium 140 (137-145) mmol/L Potassium 4.8 (3.5-5.1) mmol/L Chloride 106 (98-107) mmol/L Carbon Dioxide 22 (22-30) mmol/L Anion Gap 12 mmol/L BUN 55 H (7-17) mg/dL Creatinine 2.16 H (0.52-1.04) mg/dL Est GFR (CKD-EPI)AfAm 27 (>60 ml/min/1.73 sqM) Est GFR (CKD-EPI)NonAf 23 (>60 ml/min/1.73 sqM) Glucose 275 H (74-99) mg/dL Lactic Ac Sepsis Rflx Plasma Lactic Acid Ibrahima (0.7-2.0) mmol/L Calcium 8.9 (8.4-10.2) mg/dL Total Bilirubin 0.5 (0.2-1.3) mg/dL AST 29 (14-36) U/L ALT 27 (4-34) U/L Alkaline Phosphatase 161 H (38-126) U/L Troponin I (0.000-0.034) ng/mL NT-Pro-B Natriuret Pep pg/mL Total Protein 6.1 L (6.3-8.2) g/dL Albumin 3.8 (3.5-5.0) g/dL Influenza Type A (PCR) (Not Detectd) Influenza Type B (PCR) (Not Detectd) RSV (PCR) (Not Detectd) SARS-CoV-2 (PCR) (Not Detectd) 06/08/22 06/08/22 06/08/22 Range/Units 00:10 00:10 00:10 WBC (3.8-10.6) k/uL RBC (3.80-5.40) m/uL Hgb (11.4-16.0) gm/dL Hct (34.0-46.0) % MCV (80.0-100.0) fL MCH (25.0-35.0) pg MCHC (31.0-37.0) g/dL RDW (11.5-15.5) % Plt Count (150-450) k/uL MPV Neutrophils % % Lymphocytes % % Monocytes % % Eosinophils % % Basophils % % Neutrophils # (1.3-7.7) k/uL Lymphocytes # (1.0-4.8) k/uL Monocytes # (0-1.0) k/uL Eosinophils # (0-0.7) k/uL Basophils # (0-0.2) k/uL PT (9.0-12.0) sec INR (<1.2) APTT (22.0-30.0) sec D-Dimer (<0.60) mg/L FEU Sodium (137-145) mmol/L Potassium (3.5-5.1) mmol/L Chloride (98-107) mmol/L Carbon Dioxide (22-30) mmol/L Anion Gap mmol/L BUN (7-17) mg/dL Creatinine (0.52-1.04) mg/dL Est GFR (CKD-EPI)AfAm (>60 ml/min/1.73 sqM) Est GFR (CKD-EPI)NonAf (>60 ml/min/1.73 sqM) Glucose (74-99) mg/dL Lactic Ac Sepsis Rflx Plasma Lactic Acid Ibrahima 2.2 H* (0.7-2.0) mmol/L Calcium (8.4-10.2) mg/dL Total Bilirubin (0.2-1.3) mg/dL AST (14-36) U/L ALT (4-34) U/L Alkaline Phosphatase (38-126) U/L Troponin I <0.012 (0.000-0.034) ng/mL NT-Pro-B Natriuret Pep 218 pg/mL Total Protein (6.3-8.2) g/dL Albumin (3.5-5.0) g/dL Influenza Type A (PCR) (Not Detectd) Influenza Type B (PCR) (Not Detectd) RSV (PCR) (Not Detectd) SARS-CoV-2 (PCR) (Not Detectd) 06/08/22 06/09/22 Range/Units 00:10 00:36 WBC (3.8-10.6) k/uL RBC (3.80-5.40) m/uL Hgb (11.4-16.0) gm/dL Hct (34.0-46.0) % MCV (80.0-100.0) fL MCH (25.0-35.0) pg MCHC (31.0-37.0) g/dL RDW (11.5-15.5) % Plt Count (150-450) k/uL MPV Neutrophils % % Lymphocytes % % Monocytes % % Eosinophils % % Basophils % % Neutrophils # (1.3-7.7) k/uL Lymphocytes # (1.0-4.8) k/uL Monocytes # (0-1.0) k/uL Eosinophils # (0-0.7) k/uL Basophils # (0-0.2) k/uL PT (9.0-12.0) sec INR (<1.2) APTT (22.0-30.0) sec D-Dimer (<0.60) mg/L FEU Sodium (137-145) mmol/L Potassium (3.5-5.1) mmol/L Chloride (98-107) mmol/L Carbon Dioxide (22-30) mmol/L Anion Gap mmol/L BUN (7-17) mg/dL Creatinine (0.52-1.04) mg/dL Est GFR (CKD-EPI)AfAm (>60 ml/min/1.73 sqM) Est GFR (CKD-EPI)NonAf (>60 ml/min/1.73 sqM) Glucose (74-99) mg/dL Lactic Ac Sepsis Rflx Y Plasma Lactic Acid Ibrahima (0.7-2.0) mmol/L Calcium (8.4-10.2) mg/dL Total Bilirubin (0.2-1.3) mg/dL AST (14-36) U/L ALT (4-34) U/L Alkaline Phosphatase (38-126) U/L Troponin I (0.000-0.034) ng/mL NT-Pro-B Natriuret Pep pg/mL Total Protein (6.3-8.2) g/dL Albumin (3.5-5.0) g/dL Influenza Type A (PCR) Not Detected (Not Detectd) Influenza Type B (PCR) Not Detected (Not Detectd) RSV (PCR) Not Detected (Not Detectd) SARS-CoV-2 (PCR) Detected A (Not Detectd) Disposition Is patient prescribed a controlled substance at d/c from ED?: No Time of Disposition: 01:34 <Carlos Hubbard - Last Filed: 06/09/22 01:31> <Maryam Jaffe - Last Filed: 06/11/22 00:55> Clinical Impression: Dehydration, HALLE (acute kidney injury), COVID-19 Disposition: ADMITTED IP TO THIS HOSP Condition: Stable
[2022-06-09 01:03] LABS: Partial Thromboplastin Time 22.4 sec (22.0-30.0); Prothrombin Time 10.7 sec (9.0-12.0)
--- NOTE | 2022-06-09 01:05 | XR ---
EXAMINATION TYPE: XR chest 2V DATE OF EXAM: 06/09/2022 COMPARISON: 11/17/2020 TECHNIQUE: PA and lateral views submitted. HISTORY: Difficulty breathing FINDINGS: The lungs are clear and there is no pneumothorax, pleural effusion, or focal pneumonia. Heart size normal and no overt failure. Osseous structures demonstrate hypertrophic and degenerative changes of the spine. Cardiac device noted. IMPRESSION: 1. No acute process.
[2022-06-09 01:08] LABS: Basophils % (A) 0 %; Eosinophils % (A) 0 %; HCT 37.6 % (34.0-46.0); HGB 12.4 gm/dL (11.4-16.0); Lymphocytes # (A) 0.9 k/uL (1.0-4.8); Lymphocytes % (A) 12 %; MCH 31.3 pg (25.0-35.0); Mean Platelet Volume 7.9; Monocytes # (A) 0.4 k/uL (0-1.0); Monocytes % (A) 5 %; Neutrophils # (A) 5.7 k/uL (1.3-7.7); Neutrophils % (A) 81 %; Platelet Count 105 k/uL (150-450); RBC 3.96 m/uL (3.80-5.40); RDW 14.9 % (11.5-15.5); WBC 7.1 k/uL (3.8-10.6)
[2022-06-09] MEDS ORDERED: ACETAMINOPHEN TAB 325 MG TAB PO PRN (01:27)
[2022-06-09] MEDS ORDERED: NALOXONE 0.4 MG/ML 1 ML VIAL IV PRN (01:27)
[2022-06-09] MEDS ORDERED: ONDANSETRON 4 MG/2 ML VIAL IVP STA (01:28)
[2022-06-09] MEDS: SODIUM CHLORIDE 0.9% 1,000 ML IV SCH ×2 (01:36→14:00)
[2022-06-09] MEDS: DEXAMETHASONE SOD PHOSPHATE 4 MG/ML 1 ML VIAL IVP SCH ×4 (01:42→20:14)
[2022-06-09] MEDS: ONDANSETRON 4 MG/2 ML VIAL IVP PRN (04:09)
--- NOTE | 2022-06-09 10:58 | NM ---
EXAMINATION TYPE: NM pul perfusion DATE OF EXAM: 06/09/2022 COMPARISON: NONE HISTORY: Positive d-dimer, short of breath Following administration of 4.3 mCi Tc 99m MAA. Images obtained post injection. FINDINGS: There is no photopenic defect within the left mid lung corresponding to the patient's pacemaker. There is some diffuse diminished radiotracer to the left lung compared to the right. However, large s egmental defects are not identified. More moderate defects may be present at the left lateral lung ba se on some projections but not on posterior perfusion images. IMPRESSION: 1. There appears to be some asymmetry of the perfusion with diminished left lung compared to the righ t. However, focal segmental defects are not identified. Overall, there is an intermediate probability for pulmonary embolism.
[2022-06-09 11:30] LABS: Glucose,Whole Blood 239 mg/dL (70-110)
[2022-06-09] MEDS: GABAPENTIN 300 MG CAP PO SCH ×3 (13:37→20:13)
[2022-06-09] MEDS: HYDROcodone/APAP 10-325MG 1 EACH TAB PO SCH ×3 (13:37→20:13)
[2022-06-09] MEDS: INSULIN ASPART (NovoLOG) 100 UNIT/ML VIAL SQ SCH ×2 (13:37→17:37)
[2022-06-09] MEDS: MIDODRINE 5 MG TAB PO SCH ×2 (13:38→17:39)
[2022-06-09] MEDS: ENOXAPARIN 60 MG/0.6 ML SYRINGE SQ SCH (13:38)
[2022-06-09] MEDS: MECLIZINE 12.5 MG TAB PO SCH ×3 (13:39→20:23)
[2022-06-09 17:08] LABS: Glucose,Whole Blood 262 mg/dL (70-110)
[2022-06-09] MEDS: BENZONATATE 100 MG CAP PO SCH ×2 (17:38→20:13)
[2022-06-09] MEDS: carvediloL 6.25 MG TAB PO SCH (17:39)
--- NOTE | 2022-06-09 19:23 | CT ---
EXAMINATION TYPE: CT chest wo con DATE OF EXAM: 06/09/2022 COMPARISON: 10/15/2021 HISTORY: covid CT DLP: 710.[address] of the chest was performed with lung and mediastinal window settings submitted. The la ck of contrast limits evaluation of the vascular, mediastinal and parenchymal structures including th e upper abdomen. LUNGS: The lungs are clear and free of infiltrate. No atelectasis. No pulmonary nodule or mass is de tected. No pleural effusion. No CT evidence of interstitial lung disease. MEDIASTINUM/KISHORE: Thoracic aorta is of normal caliber with limited evaluation given lack of contrast . The heart is enlarged. No evidence for mediastinal mass. No lymph nodes greater than 1cm. UPPER ABDOMEN: No significant abnormality is seen. OTHER: No significant other abnormality. IMPRESSION: 1. No infiltrate, nodule or mass. No pleural effusion. Cardiomegaly.
[2022-06-09] MEDS: ALBUTEROL HFA INHALER INHALATION PRN (19:30)
[2022-06-09] MEDS: SYMBICORT 160-4.5 MCG INHALER INHALATION SCH (19:30)
[2022-06-09] MEDS ORDERED: FLUTICASONE 110 MCG INHALER INHALATION SCH (20:00)
[2022-06-09] MEDS: MONTELUKAST 10 MG TAB PO SCH (20:13)
[2022-06-09] MEDS: TOPIRAMATE 25 MG TAB PO SCH (20:13)
[2022-06-09] MEDS: ATORVASTATIN 20 MG TAB PO SCH (20:13)
[2022-06-09] MEDS: MAGNESIUM OXIDE 400 MG TAB PO SCH (20:13)
[2022-06-09] MEDS: INSULIN DETEMIR (LEVEMIR) 100 UNIT/ML SYR SQ SCH (20:14)
[2022-06-09 20:16] LABS: Glucose,Whole Blood 206 mg/dL (70-110)
--- NOTE | 2022-06-09 21:17 | P.CONS ---
History of Present Illness - Reason for Consult Consult date: 06/09/22 covid 19 Requesting physician: Vishal Snell - Chief Complaint Shortness of breath and cough x few days - History of Present Illness Patient is a 66-year-old female with a past medical history of bradycardia for diabetes mellitus hypertension asthma presenting to the ER last night for evaluation of increasing shortness of breath, The patient's symptom has been going on since Thursday that is about 3 days before presentation to the hospital has been generalized not feeling well patient did have a chills cough which has been moderate intensity mostly dry in nature nausea but no vomiting and shortness of breath patient did have a home COVID test which came back positive that she took on Thursday and apparently the patient PCP put her on Decadron however the patient started having increasing shortness of breath for the patient was advised to go to the hospital on presentation to the hospital patient was afebrile patient did have a documented O2 sats of 98% on 2 L no O2 sats on room air has been documented patient did have a normal white count with lymphopenia D-dimer was elevated did have elevated BUN and creatinine lactic acid was elevated liver enzymes are normal COVID test came back positive influenza RSV was negative patient did have a chest x-ray that was reported negative for acute process patient also have pulmonary perfusion imaging some a symmetry of the perfusion with diminished left lung compared to the right intermediate probability for pulmonary embolism pulmonary has been consulted, infectious disease was consulted for COVID 19 infection, at the time my evaluation the patient has been off the supplemental oxygen on room air and is breathing slightly comfortably Review of Systems Positive point has been mentioned in the HPI rest of the systems are negative Past Medical History Past Medical History: Asthma, Diabetes Mellitus, GERD/Reflux, Hyperlipidemia, M usculoskeletal Disorder, Osteoarthritis (OA), Pneumonia, Renal Disease, Sleep Apnea/CPAP/BIPAP, Vascular Disorder Additional Past Medical History / Comment(s): neuropathy bilateral hands/legs/feet, CKD stage III, hx kidney stones, anemia, UTI/septic due to lodged kidney stone, CARLOS with bipap, bronchitis, orthostatic hypotension with near syncope, vertigo, chronic low back pain/DDD, scoliosis, bilateral carpal tunnel syndrome, bilateral varicosities, migraines, SEE DR ALFORD H&P, gout, hx anemia(from nicked vein in left kidney after surgery for kidney stone), "embolism in my chest" History of Any Multi-Drug Resistant Organisms: None Reported Past Surgical History: AICD, Appendectomy, Back Surgery, Cardiac Ablation, Section, Cholecystectomy, Heart Catheterization, Hysterectomy, Joint Replacement, Orthopedic Surgery, Pacemaker Additional Past Surgical History / Comment(s): Rt knee arthroscopy, john total knee arthroplasty, pain clinic procedures, D&C, colonoscopy, bilateral leg v aricose vein surgery, lithotripsies, surgical removal of stones, Myelogram(Norberto) 2018, Lumbar fusion L3-4, lumbar puncture for headaches 2019 (had spinal headache post), laminectomy, bakers cyst removed from rt knee, john cataracts, 02/12/21 back surgery with complications Past Anesthesia/Blood Transfusion Reactions: No Reported Reaction Additional Past Anesthesia/Blood Transfusion Reaction / Comm: Pt has received blood without reaction. Type of Cardiac Device: Permanent Pacemaker, AICD Device Placement Date:: 09/10/20 Past Psychological History: Anxiety, Depression Additional Psychological History / Comment(s): . Smoking Status: Never smoker Past Alcohol Use History: None Reported Additional Past Alcohol Use History / Comment(s): . Past Drug Use History: None Reported - Past Family History Father Family Medical History: Cancer Additional Family Medical History / Comment(s): Stomach cancer. Brother(s) Family Medical History: Cancer Additional Family Medical History / Comment(s): Lung cancer. Sister(s) Family Medical History: Cancer Additional Family Medical History / Comment(s): Sister had stomach/colon/part of pancreas cancers. Mother Family Medical History: Cancer Additional Family Medical History / Comment(s): Ovarian and cervical cancer. Medications and Allergies Home Medications Medication Instructions Recorded Confirmed Type Aspirin EC [Ecotrin Low Dose] 81 mg PO HS 11/02/18 06/14/22 History Montelukast [Singulair] 10 mg PO HS 11/02/18 06/14/22 History Atorvastatin [Lipitor] 20 mg PO HS 09/05/19 06/14/22 History Meclizine [Antivert] 12.5 mg PO Q8H 09/05/19 06/14/22 History Topiramate [Topamax] 50 mg PO HS 09/05/19 06/14/22 History carvediloL [Coreg] 6.25 mg PO BID 09/05/19 06/14/22 History calcitrioL [Rocaltrol] 0.25 mcg PO NORRIS 12/06/19 06/14/22 History Budesonide [Pulmicort Flexhaler] 2 puff INHALATION RT-BID 02/09/20 06/14/22 History Docusate [Colace] 100 mg PO DAILY 02/09/20 06/14/22 History Insulin Glargine,Hum.rec.anlog 36 unit SQ HS 02/09/20 06/14/22 History [Lantus Solostar Pen] Insulin Lispro [humaLOG Kwikpen] 10 unit SQ TID-W/MEALS 02/09/20 06/14/22 History Magnesium Oxide [Shaikh] 1,000 mg PO HS 02/09/20 06/14/22 History Albuterol Sulfate [Ventolin HFA] 2 puff INHALATION RT-QID PRN 04/20/20 06/14/22 History Azithromycin [Zithromax Z Pack] See Taper PO DIRECTED 06/09/22 06/14/22 History Benzonatate 100 mg PO TID 06/09/22 06/14/22 History Cyanocobalamin (Vitamin B-12) 1,000 mcg PO DAILY 06/09/22 06/14/22 History [Vitamin B-12] Dapagliflozin Propanediol [Farxiga] 5 mg PO DAILY 06/09/22 06/14/22 History Ergocalciferol [Vitamin D2 (1250 1,250 mcg PO QMONTHLY 06/09/22 06/14/22 History Mcg = [id number] Iu)] Ferrous Sulfate [Iron (65 MG 325 mg PO DAILY 06/09/22 06/14/22 History Elemental)] Furosemide [Lasix] 40 mg PO DAILY 06/09/22 06/14/22 History Gabapentin 600 mg PO QID 06/09/22 06/14/22 History HYDROcodone/APAP 10-325MG [[place] 1 tab PO QID 06/09/22 06/14/22 History 10-325] Levofloxacin [Levaquin] 250 mg PO DAILY 06/09/22 06/14/22 History Midodrine HCl [ProAmatine] 10 mg PO TID 06/09/22 06/14/22 History Protonix 40mg Susp Packet 40 mg PO DAILY 06/09/22 06/14/22 History Sertraline HCl [Zoloft] 50 mg PO DAILY 06/09/22 06/14/22 History allopurinoL 100 mg PO DAILY 06/09/22 06/14/22 History dexAMETHasone [Decadron] 6 mg PO DAILY 06/09/22 06/14/22 History lisinopriL [Zestril] 2.5 mg PO DAILY 06/09/22 06/14/22 History Budesonide-Formot 160-4.5 Mcg 2 puff INHALATION RT-BID 30 Days 06/11/22 06/14/22 Rx [Symbicort 160-4.5 Mcg Inhaler] #1 each Allergies Allergy/AdvReac Type Severity Reaction Status Date / Time No Known Allergies Allergy Verified 06/14/22 16:02 Physical Exam Vitals: Vital Signs Temp Pulse Pulse Resp BP BP Pulse Ox 06/09/22 08:50 18 06/09/22 07:06 98.0 F 56 L 17 122/64 96 06/09/22 03:05 98.3 F 61 18 102/63 100 06/09/22 03:00 122/68 98 06/09/22 02:59 60 18 122/68 98 06/09/22 02:50 60 18 122/68 98 06/09/22 02:40 60 11 L 122/68 97 06/09/22 02:30 59 L 16 122/68 98 06/09/22 02:20 59 L 20 122/68 98 06/09/22 02:10 59 L 17 122/68 98 06/09/22 02:00 98.3 F 59 L 61 18 118/71 102/63 100 06/09/22 01:50 60 16 118/71 97 06/09/22 01:40 58 L 16 118/71 98 06/09/22 01:37 59 L 18 118/71 98 06/09/22 01:30 59 L 15 99/58 98 06/09/22 01:20 60 23 99/58 97 06/09/22 01:10 60 18 99/58 97 06/09/22 01:00 60 20 111/60 98 06/09/22 00:50 60 18 111/60 98 06/09/22 00:40 59 L 18 111/60 97 06/09/22 00:30 59 L 17 111/60 95 04/10/23 00:28 59 L 18 111/60 98 06/09/22 00:20 111/60 06/09/22 00:10 58 L 14 111/60 06/09/22 00:00 60 17 106/60 06/08/22 23:50 60 15 106/60 96 06/08/22 23:46 43 H 06/08/22 23:25 18 06/08/22 22:58 97.3 F L 64 18 101/64 98 Intake and Output 06/08/22 06/09/22 06/09/22 22:59 06:59 14:59 Intake Total 540 Balance 540 Intake: Intake, IV Titration 300 Amount Sodium Chloride 0.9% 1, 300 000 ml @ 75 mls/hr IV . [id number] [facility] Rx#:[id number] Oral 240 Other: Voiding Method Toilet # Voids 1 Weight 105.687 kg 105.687 kg GENERAL DESCRIPTION: Elderly female lying in bed, no distress. No tachypnea or accessory muscle of respiration use. HEENT: Shows Pallor , no scleral icterus. Oral mucous membrane is dry. NECK: Trachea central, no thyromegaly. LUNGS: Unlabored breathing. Coarse breath sounds bilaterally HEART: S1, S2, regular rate and rhythm. No loud murmur ABDOMEN: Soft, no tenderness , guarding or rigidity, no organomegaly EXTREMITIES: No edema of feet. SKIN: No rash, no masses palpable. NEUROLOGICAL: The patient is awake, alert, oriented x3, mood and affect normal. Results CBC & Chem 7: 06/10/22 07:19 06/10/22 07:19 Labs: Abnormal Lab Results - Last 24 Hours (Table) 06/08/22 06/08/22 06/08/22 Range/Units 00:10 00:10 00:10 Plt Count 105 L (150-450) k/uL Lymphocytes # 0.9 L (1.0-4.8) k/uL D-Dimer 1.98 H (<0.60) mg/L FEU BUN 55 H (7-17) mg/dL Creatinine 2.16 H (0.52-1.04) mg/dL Glucose 275 H (74-99) mg/dL POC Glucose (mg/dL) (70-110) mg/dL Plasma Lactic Acid Ibrahima (0.7-2.0) mmol/L Alkaline Phosphatase 161 H (38-126) U/L Total Protein 6.1 L (6.3-8.2) g/dL SARS-CoV-2 (PCR) (Not Detectd) 06/08/22 06/08/22 06/09/22 Range/Units 00:10 00:10 11:27 Plt Count (150-450) k/uL Lymphocytes # (1.0-4.8) k/uL D-Dimer (<0.60) mg/L FEU BUN (7-17) mg/dL Creatinine (0.52-1.04) mg/dL Glucose (74-99) mg/dL POC Glucose (mg/dL) 239 H (70-110) mg/dL Plasma Lactic Acid Irbahima 2.2 H* (0.7-2.0) mmol/L Alkaline Phosphatase (38-126) U/L Total Protein (6.3-8.2) g/dL SARS-CoV-2 (PCR) Detected A (Not Detectd) Assessment and Plan (1) COVID-19 Status: Acute Code(s): U07.1 - COVID-19 SNOMED Code(s): 505980948 Plan: 1patient with a COVID-19 infection diagnosed about 3 days before presentation to hospital and this patient has been mostly shortness of breath, patient also have a cough moderate intensity however no fever has been documented chest x-ray has been negative for any acute infiltrate and the patient is currently off oxygen all these factors will disqualify her for remdesivir per [facility] policy 2-patient to continue with zinc ascorbic acid and Decadron being started by the PCP 3-anticoagulation per pulmonary keeping in mind abnormality seen on the lung perfusion study we will check lower extremity Dopplers 4-droplet isolation We will follow on clinical condition and cultures to further adjust medication if needed Thank you for this consultation we will follow the patient along with you Time with Patient: Greater than 30
[2022-06-09] MEDS: guaiFENesin-Coden 100-10MG/5ML 10 ML CUP PO PRN (23:02)
--- NOTE | 2022-06-09 23:33 | HP ---
HISTORY AND PHYSICAL HISTORY OF PRESENT ILLNESS: This 66-year-old white female admitted to the hospital with positive COVID, shortness of breath, failing outpatient treatment with multiple antibiotics steroids, shortness of breath, renal insufficiency, dehydration. She has asthma, COPD in the past. She is severely weak, unable to ambulate. MEDICINES: 1. Ecotrin 81 daily. 2. Singulair 10 daily. 3. Coreg 12.5 b.i.d. 4. Topamax 50 daily. 5. Antivert 12.5 q.12 hours. 6. Iron 325 daily. 7. Lipitor 20 daily. 8. Rocaltrol 0.25 mcg once a week. 9. Pulmicort 2 puffs b.i.d. 10.Lantus 40 units daily. 11.Humalog 50 units subcu t.i.d. 12.Mag oxide 1500 mg daily. 13.Midodrine 5 mg t.i.d. 14.Albuterol 2 puffs q.i.d. 15.Neurontin 300 daily. ALLERGIES: Negative. REVIEW OF SYSTEMS: A 14-point review of systems otherwise negative. PAST MEDICAL HISTORY: Coronary artery disease, sleep apnea, renal disease, osteoarthritis, insulin-dependent diabetes mellitus, asthma, GERD, and dyslipidemia. FAMILY HISTORY: Father with stomach cancer, brother with lung cancer. Sister, cancer of the pancreas. Mother, cancer ovarian and cervical. PHYSICAL EXAMINATION: VITAL SIGNS: Temp 97.3, pulse 59 to 64, respiratory rate 16 to 18, blood pressure 101 to 111 over 60s, and O2 98. CARDIOVASCULAR: S1, S2. LUNGS: Scattered wheeze x4. HEMATOLOGY: Negative for Homans. PSYCH: Fair mood and affect. LABORATORY DATA: BUN is 55, creatinine of 2.16. Positive COVID. EKG, paced rhythm. ASSESSMENT: 1. COVID-19. 2. Acute hypoxemic respiratory distress. 3. Prerenal azotemia. 4. Severe dehydration. 5. COPD, rule out pulmonary embolus with elevated D-dimer. 6. Protein-calorie malnutrition. 7. Mild elevated D-dimer secondary to COVID. Start Lovenox shots, Decadron. Wait for Infectious Disease. PLAN: Start Lovenox subcu, get COVID treatment per Infectious Disease. Rehydrate the patient. Prognosis is guarded. MMODL / IJN: [id number] /
[2022-06-10] MEDS: DEXAMETHASONE SOD PHOSPHATE 4 MG/ML 1 ML VIAL IVP SCH ×4 (01:39→21:45)
[2022-06-10] MEDS: SODIUM CHLORIDE 0.9% 1,000 ML IV SCH ×2 (01:41→14:56)
[2022-06-10] MEDS: ONDANSETRON 4 MG/2 ML VIAL IVP PRN ×2 (02:33→14:56)
[2022-06-10 05:54] LABS: Glucose,Whole Blood 183 mg/dL (70-110)
[2022-06-10] MEDS: MIDODRINE 5 MG TAB PO SCH ×3 (05:58→17:18)
[2022-06-10] MEDS: carvediloL 6.25 MG TAB PO SCH ×2 (06:06→17:18)
[2022-06-10] MEDS: guaiFENesin-Coden 100-10MG/5ML 10 ML CUP PO PRN (06:06)
[2022-06-10] MEDS: INSULIN ASPART (NovoLOG) 100 UNIT/ML VIAL SQ SCH ×3 (08:36→17:18)
[2022-06-10] MEDS: HYDROcodone/APAP 10-325MG 1 EACH TAB PO SCH ×4 (08:36→21:45)
[2022-06-10] MEDS: ENOXAPARIN 60 MG/0.6 ML SYRINGE SQ SCH (08:50)
[2022-06-10] MEDS: MECLIZINE 12.5 MG TAB PO SCH ×3 (08:51→21:44)
[2022-06-10] MEDS: SERTRALINE 50 MG TAB PO SCH (08:51)
[2022-06-10] MEDS: DAPAGLIFLOZIN PROPANEDIOL 5 MG TABLET PO SCH (08:51)
[2022-06-10] MEDS: GABAPENTIN 300 MG CAP PO SCH ×4 (08:51→21:43)
[2022-06-10] MEDS: BENZONATATE 100 MG CAP PO SCH ×3 (08:51→21:44)
[2022-06-10] MEDS: DOCUSATE 100 MG CAP PO SCH (08:51)
[2022-06-10] MEDS: allopurinoL 100 MG TAB PO SCH (08:51)
[2022-06-10] MEDS: FERROUS SULFATE 325 MG TAB PO SCH (08:51)
[2022-06-10] MEDS: CYANOCOBALAMIN 500 MCG TAB PO SCH (08:51)
[2022-06-10] MEDS ORDERED: FUROSEMIDE 40 MG TAB PO SCH (09:00)
--- NOTE | 2022-06-10 09:02 | US ---
EXAMINATION TYPE: US venous doppler duplex LE DATE OF EXAM: 06/10/2022 8:25 AM COMPARISON: US 2014 CLINICAL HISTORY: elevated ddimer/covid. Elevated d dimer/covid. No hx of DVT. Patient takes aspirin. SIDE PERFORMED: Bilateral TECHNIQUE: The lower extremity deep venous system is examined utilizing real time linear array sonog oscar with graded compression, doppler sonography and color-flow sonography. VESSELS IMAGED: Common Femoral Vein Deep Femoral Vein Greater Saphenous Vein * Femoral Vein Popliteal Vein Small Saphenous Vein * Proximal Calf Veins (* superficial vessels) Right Leg: No evidence of DVT Left Leg: No evidence of DVT IMPRESSION: 1. No diagnostic evidence of DVT.
[2022-06-10] MEDS: SYMBICORT 160-4.5 MCG INHALER INHALATION SCH ×2 (09:29→21:25)
[2022-06-10] MEDS: ALBUTEROL HFA INHALER INHALATION PRN ×3 (09:30→21:26)
[2022-06-10 11:22] LABS: African American GFR (CKD) 35.5 (60.0-200.0); Albumin 3.5 g/dL (3.8-4.9); Albumin/Globulin Ratio 1.84 (1.60-3.17); Anion Gap 9.3 mmol/L (10.00-18.00); Blood Urea Nitrogen 54.4 mg/dL (9.0-27.0); Calcium 8.5 mg/dL (8.7-10.3); Carbon Dioxide 21.7 mmol/L (20.0-27.5); Globulin 1.9 g/dL (1.6-3.3); Non-African American GFR(CKD) 30.7 (60.0-200.0); Potassium 4.8 mmol/L (3.5-5.5); Total Bilirubin 0.3 mg/dL (0.30-1.20); Total Protein 5.4 g/dL (6.2-8.2)
[2022-06-10 11:31] LABS: Glucose,Whole Blood 153 mg/dL (70-110)
[2022-06-10 12:09] LABS: Basophils # (A) 0 X 10*3/uL (0.00-0.10); Basophils % (A) 0 %; Eosinophils # (A) 0 X 10*3/uL (0.04-0.35); Eosinophils % (A) 0 %; HCT 35.4 % (37.2-46.3); HGB 11.1 g/dL (12.0-15.0); Immature Grans, Automated 0.4 %; Lymphocytes # (A) 0.61 X 10*3/uL (0.90-5.00); Lymphocytes % (A) 13.1 %; MCH 30.6 pg (27.0-32.0); MCHC 31.4 g/dL (32.0-37.0); MCV 97.5 fL (80.0-97.0); Mean Platelet Volume 10.8 fL (9.5-12.2); Monocytes % (A) 4.3 %; NRBC Per 100 WBC 0 /100 WBCS (0.0-0.0); Neutrophils # (A) 3.84 X 10*3/uL (1.80-7.70); Neutrophils % (A) 82.2 %; Platelet Count 76 X 10*3/uL (140-440); RBC 3.63 X 10*6/uL (4.10-5.20); RDW 14.9 % (11.5-14.5); WBC 4.67 X 10*3/uL (4.50-10.00)
[2022-06-10 12:10] LABS: Immature Platelet Fraction 3.4 % (1.1-6.1)
--- NOTE | 2022-06-10 13:33 | CA ---
Transthoracic Echo Report Name: Yani Andino Age: 66 Gender: F : 1955 Exam Date: 06/10/2022 10:24 Exam Location: [place] [facility] Ht (in): 65 Wt (lb): 233 Ordering Physician: Vishal Snell MD Attending/Referring Phys: Tech Brazer Tester [employer] RDCS Procedure CPT: Indications: dyspnea Cardiac Hx: Technical Quality: Technically difficult study Contrast 1: Total Dose (mL): Contrast 2: Total Dose (mL): MEASUREMENTS (Male / Female) Normal Values 2D ECHO LV Diastolic Diameter PLAX 5.7 cm 4.2 - 5.9 / 3.9 - 5.3 cm LV Systolic Diameter PLAX 4.7 cm IVS Diastolic Thickness 1.3 cm 0.6 - 1.0 / 0.6 - 0.9 cm LVPW Diastolic Thickness 1.8 cm 0.6 - 1.0 / 0.6 - 0.9 cm LV Relative Wall Thickness 0.6 LV Diastolic Volume MOD 4C 129.0 cm??? LV Systolic Volume MOD 4C 82.7 cm??? LV Ejection Fraction MOD 4C 35.9 % LV Diastolic Length 4C 8.7 cm LV Systolic Length 4C 7.7 cm DOPPLER TR Peak Velocity 223.9 cm/s TR Peak Gradient 20.1 mmHg FINDINGS Left Ventricle Moderately increased septal wall thickness. Severely increased posterior wall thickness. Mildly increased left ventricular diastolic diameter. Left ventricular ejection fraction is estimated at 30-35%. Right Ventricle Right Atrium Left Atrium Mitral Valve Aortic Valve Tricuspid Valve Pulmonic Valve Pericardium No pericardial or pleural effusion. Aorta Aortic dilatation at the level of the sinuses of valsalva (root). Ascending aorta normal size. CONCLUSIONS Dilated LV with severe LV dysfunction Lead noted in right ventricle Previewed by: Dr. Keith Whitaker MD (Electronically Signed) Final Date: 10 June 2022 13:32
[2022-06-10 17:06] LABS: Glucose,Whole Blood 239 mg/dL (70-110)
--- NOTE | 2022-06-10 19:15 | P.PN ---
Subjective Progress Note Date: 06/10/22 Principal diagnosis: Covid 19 Patient is a 66-year-old female with a past medical history of bradycardia for diabetes mellitus hypertension asthma presenting to the ER for evaluation of increasing shortness of breath, The patient's symptom has been going on for about 3 days before presentation to the hospital , patient has been diagnosed with a covid 19 infection chest x-ray was negative patient also have a CT of the chest that was negative for any acute infiltrates/pneumonia. on today's evaluation that is 06/10/2022, the patient denies having any fever or any chills, the patient is breathing slightly comfortably and remains to be an improvement patient denies having any chest pain she did have some cough with sputum production some nausea but no vomiting and has been complaining of diarrhea Objective - Vital Signs Vital signs: Vital Signs Temp 97.3 F L 06/10/22 08:55 Pulse 63 06/10/22 09:02 Resp 19 06/10/22 08:55 BP 103/68 06/10/22 08:55 Pulse Ox 95 06/10/22 09:30 FiO2 Intake & Output 06/09/22 06/10/22 06/10/22 18:59 06:59 18:59 Intake Total 1240 Balance 1240 Intake: Intake, IV Titration 900 Amount Sodium Chloride 0.9% 1, 900 000 ml @ 75 mls/hr IV . [id number] [facility] Rx#:[id number] Oral 340 Other: Voiding Method Toilet # Voids 4 1 1 - Exam GENERAL DESCRIPTION: An elderly female lying in bed in no distress RESPIRATORY SYSTEM: Unlabored breathing , decreased breath sounds at bases HEART: S1 S2 regular rate and rhythm , ABDOMEN: Soft , no tenderness - Labs CBC & Chem 7: 06/10/22 07:19 06/10/22 07:19 Labs: Abnormal Lab Results - Last 24 Hours (Table) 06/09/22 06/09/22 06/10/22 Range/Units 17:06 20:13 05:52 Chloride (96-109) mmol/L Anion Gap (10.00-18.00) mmol/L BUN (9.0-27.0) mg/dL Creatinine (0.6-1.5) mg/dL Est GFR (CKD-EPI)AfAm (60.0-200.0) Est GFR (CKD-EPI)NonAf (60.0-200.0) BUN/Creatinine Ratio (12.00-20.00) Ratio Glucose (70-110) mg/dL POC Glucose (mg/dL) 262 H 206 H 183 H (70-110) mg/dL Calcium (8.7-10.3) mg/dL Total Protein (6.2-8.2) g/dL Albumin (3.8-4.9) g/dL 06/10/22 06/10/22 Range/Units 07:19 11:30 Chloride 111 H (96-109) mmol/L Anion Gap 9.30 L (10.00-18.00) mmol/L BUN 54.4 H (9.0-27.0) mg/dL Creatinine 1.7 H (0.6-1.5) mg/dL Est GFR (CKD-EPI)AfAm 35.5 L (60.0-200.0) Est GFR (CKD-EPI)NonAf 30.7 L (60.0-200.0) BUN/Creatinine Ratio 32.00 H (12.00-20.00) Ratio Glucose 189 H (70-110) mg/dL POC Glucose (mg/dL) 153 H (70-110) mg/dL Calcium 8.5 L (8.7-10.3) mg/dL Total Protein 5.4 L (6.2-8.2) g/dL Albumin 3.5 L (3.8-4.9) g/dL Assessment and Plan (1) COVID-19 Current Visit: Yes Status: Acute Code(s): U07.1 - COVID-19 SNOMED Code(s): 644130195 Plan: 1patient with a COVID-19 infection diagnosed about 3 days before presentation to hospital and this patient has been mostly shortness of breath, patient also have a cough moderate intensity however no fever has been documented chest x-ray has been negative for any acute infiltrate and the patient also have a chest CT that was negative for pneumonia, patient also have a lower extremity Doppler was negative for DVT 2-patient to continue with zinc ascorbic acid and Decadron and monitor clinical course closely Time with Patient: Less than 30
[2022-06-10 20:24] LABS: Glucose,Whole Blood 174 mg/dL (70-110)
[2022-06-10] MEDS: ATORVASTATIN 20 MG TAB PO SCH (21:44)
[2022-06-10] MEDS: MAGNESIUM OXIDE 400 MG TAB PO SCH (21:44)
[2022-06-10] MEDS: TOPIRAMATE 25 MG TAB PO SCH (21:44)
[2022-06-10] MEDS: MONTELUKAST 10 MG TAB PO SCH (21:45)
[2022-06-10] MEDS: INSULIN DETEMIR (LEVEMIR) 100 UNIT/ML SYR SQ SCH (21:45)
[2022-06-11] MEDS: DEXAMETHASONE SOD PHOSPHATE 4 MG/ML 1 ML VIAL IVP SCH ×3 (01:32→14:59)
[2022-06-11] MEDS: SODIUM CHLORIDE 0.9% 1,000 ML IV SCH (01:34)
[2022-06-11 05:54] LABS: Glucose,Whole Blood 159 mg/dL (70-110)
[2022-06-11 07:06] VITALS: RESP 16
[2022-06-11] MEDS: CYANOCOBALAMIN 500 MCG TAB PO SCH (07:58)
[2022-06-11] MEDS: FERROUS SULFATE 325 MG TAB PO SCH (07:58)
[2022-06-11] MEDS: SERTRALINE 50 MG TAB PO SCH (07:58)
[2022-06-11] MEDS: DOCUSATE 100 MG CAP PO SCH (07:58)
[2022-06-11] MEDS: BENZONATATE 100 MG CAP PO SCH ×2 (07:58→14:59)
[2022-06-11] MEDS: MIDODRINE 5 MG TAB PO SCH ×2 (07:58→12:25)
[2022-06-11] MEDS: GABAPENTIN 300 MG CAP PO SCH ×2 (07:58→12:25)
[2022-06-11] MEDS: allopurinoL 100 MG TAB PO SCH (07:58)
[2022-06-11] MEDS: INSULIN ASPART (NovoLOG) 100 UNIT/ML VIAL SQ SCH ×2 (07:59→12:25)
[2022-06-11] MEDS: ENOXAPARIN 60 MG/0.6 ML SYRINGE SQ SCH (07:59)
[2022-06-11] MEDS: MECLIZINE 12.5 MG TAB PO SCH ×2 (07:59→14:59)
[2022-06-11] MEDS: HYDROcodone/APAP 10-325MG 1 EACH TAB PO SCH ×2 (07:59→12:25)
[2022-06-11] MEDS: DAPAGLIFLOZIN PROPANEDIOL 5 MG TABLET PO SCH (08:00)
[2022-06-11] MEDS: carvediloL 6.25 MG TAB PO SCH (08:01)
[2022-06-11] MEDS: ONDANSETRON 4 MG/2 ML VIAL IVP PRN (08:34)
[2022-06-11] MEDS: SYMBICORT 160-4.5 MCG INHALER INHALATION SCH (08:55)
[2022-06-11 11:16] LABS: Glucose,Whole Blood 225 mg/dL (70-110)
[2022-06-11 13:57] VITALS: BP 140/74; PULSE 62; TEMP 98
--- NOTE | 2022-06-11 14:59 | P.PN ---
Subjective Progress Note Date: 06/11/22 Principal diagnosis: Covid 19 Patient is a 66-year-old female with a past medical history of bradycardia for diabetes mellitus hypertension asthma presenting to the ER for evaluation of increasing shortness of breath, The patient's symptom has been going on for about 3 days before presentation to the hospital , patient has been diagnosed with a covid 19 infection chest x-ray was negative patient also have a CT of the chest that was negative for any acute infiltrates/pneumonia. on today's evaluation that is 06/11/2022, the patient remains to be afebrile, the patient is breathing slightly comfortably currently on room air and satting 95%, patient mentioned episode of nausea and vomiting this morning, patient denies having any chest pain she did have some cough with sputum production Objective - Vital Signs Vital signs: Vital Signs Temp 98.2 F 06/11/22 07:05 Pulse 56 L 06/11/22 07:05 Resp 16 06/11/22 07:05 BP 148/72 06/11/22 07:05 Pulse Ox 96 06/11/22 08:57 FiO2 Intake & Output 06/10/22 06/11/22 06/11/22 18:59 06:59 18:59 Intake Total 118 Balance 118 Intake: Oral 118 Other: Voiding Method Toilet # Voids 1 4 - Exam GENERAL DESCRIPTION: An elderly female lying in bed in no distress RESPIRATORY SYSTEM: Unlabored breathing , decreased breath sounds at bases HEART: S1 S2 regular rate and rhythm , ABDOMEN: Soft , no tenderness - Labs CBC & Chem 7: 06/10/22 07:19 06/10/22 07:19 Labs: Abnormal Lab Results - Last 24 Hours (Table) 06/10/22 06/10/22 06/11/22 Range/Units 17:04 20:22 05:52 POC Glucose (mg/dL) 239 H 174 H 159 H (70-110) mg/dL 06/11/22 Range/Units 11:15 POC Glucose (mg/dL) 225 H (70-110) mg/dL Assessment and Plan (1) COVID-19 Current Visit: Yes Status: Acute Code(s): U07.1 - COVID-19 SNOMED Code(s): 531579745 Plan: 1patient with a COVID-19 infection diagnosed about 3 days before presentation to hospital and this patient has been mostly shortness of breath, patient also have a cough moderate intensity however no fever has been documented chest x-ray has been negative for any acute infiltrate and the patient also have a chest CT that was negative for pneumonia, patient also have a lower extremity Doppler was negative for DVT 2-patient did have a minimal clinical improvement the patient continues to be afebrile and not requiring supplemental oxygen, patient to continue with zinc ascorbic acid and Decadron and monitor clinical course closely Time with Patient: Less than 30
[2022-06-14] MEDS ORDERED: ERGOCALCIFEROL 1,250 MCG (50,000 IU) CAPSULE PO SCH (09:00)
== END 2022-06-11 16:11 | disposition home or self-care (01) ==
LOC: EC 22:54 → 4SSUR 06-09 01:27
PROVIDERS: ADMIT Family Medicine; ATTEND Family Medicine
DX: J12.82 Pneumonia due to coronavirus disease 2019 (principal); J45.909 Unspecified asthma, uncomplicated; I12.9 Hypertensive chronic kidney disease with stage 1 through stage 4 chronic kidney disease, or unspecified chronic kidney disease; E11.22 Type 2 diabetes mellitus with diabetic chronic kidney disease; N18.30 Chronic kidney disease, stage 3 unspecified; E11.42 Type 2 diabetes mellitus with diabetic polyneuropathy; K21.9 Gastro-esophageal reflux disease without esophagitis; E78.5 Hyperlipidemia, unspecified; M19.90 Unspecified osteoarthritis, unspecified site; G47.30 Sleep apnea, unspecified; Z20.822 Contact with and (suspected) exposure to COVID-19; Z87.01 Personal history of pneumonia (recurrent); Z87.448 Personal history of other diseases of urinary system; Z87.442 Personal history of urinary calculi; D64.9 Anemia, unspecified; G47.33 Obstructive sleep apnea (adult) (pediatric); G89.29 Other chronic pain; M54.50 Low back pain, unspecified; M41.9 Scoliosis, unspecified; M10.9 Gout, unspecified; Z90.49 Acquired absence of other specified parts of digestive tract; Z95.810 Presence of automatic (implantable) cardiac defibrillator; Z98.891 History of uterine scar from previous surgery; Z90.710 Acquired absence of both cervix and uterus; Z96.653 Presence of artificial knee joint, bilateral; Z98.1 Arthrodesis status; F41.9 Anxiety disorder, unspecified; F32.A Depression, unspecified; Z80.1 Family history of malignant neoplasm of trachea, bronchus and lung; Z80.0 Family history of malignant neoplasm of digestive organs; Z80.41 Family history of malignant neoplasm of ovary; Z80.49 Family history of malignant neoplasm of other genital organs; Z79.82 Long term (current) use of aspirin; Z79.51 Long term (current) use of inhaled steroids; Z79.4 Long term (current) use of insulin; Z79.899 Other long term (current) drug therapy; Z79.84 Long term (current) use of oral hypoglycemic drugs; Z79.891 Long term (current) use of opiate analgesic
CPT/HCPCS: 96376 ×3; 96361 ×4; 96372 ×3; 96374; 96375; 99285; 36415; 94640 ×4; 94760 ×2; 93005; 93308; 85379; 83880; 80053 ×2; 83605; 84484; 85025 ×2; 85610; 85730; 87636; 71046; 93970; 71250; 78580; G0378 ×3; A9540; J1100 ×3; J2405 ×3; J1650 ×3

== ENCOUNTER 2022-06-14 13:28 | Inpatient (IN) | payer MEDICARE, OTHER ==
[2022-06-14] MEDS ORDERED: SODIUM CHLORIDE 0.9% 1,000 ML IV STA ×2 (14:25→15:56)
[2022-06-14] MEDS ORDERED: MORPHINE SULFATE 4 MG/ML SYRINGE IVP STA ×2 (14:26→16:35)
[2022-06-14 15:30] LABS: Basophils % (A) 0 %; Eosinophils # (A) 0.1 k/uL (0-0.7); Eosinophils % (A) 0 %; HCT 39.5 % (34.0-46.0); HGB 12.8 gm/dL (11.4-16.0); Lymphocytes # (A) 0.4 k/uL (1.0-4.8); Lymphocytes % (A) 3 %; MCH 31.3 pg (25.0-35.0); MCHC 32.5 g/dL (31.0-37.0); MCV 96.2 fL (80.0-100.0); Mean Platelet Volume 8.6; Monocytes # (A) 0.5 k/uL (0-1.0); Monocytes % (A) 3 %; Neutrophils # (A) 13.2 k/uL (1.3-7.7); Neutrophils % (A) 93 %; Platelet Count 102 k/uL (150-450); RDW 14.9 % (11.5-15.5); WBC 14.2 k/uL (3.8-10.6)
[2022-06-14 15:41] LABS: Partial Thromboplastin Time 22.4 sec (22.0-30.0); Prothrombin Time 10.8 sec (9.0-12.0)
[2022-06-14 15:46] LABS: ALT 31 U/L (4-34); AST 48 U/L (14-36); African American GFR (CKD) 37 (>60 ml/min/1.73 sqM); Albumin 3.2 g/dL (3.5-5.0); Alcohol <10 mg/dL; Alkaline Phosphatase 97 U/L (38-126); Anion Gap 11 mmol/L; Blood Urea Nitrogen 43 mg/dL (7-17); Calcium 8.4 mg/dL (8.4-10.2); Carbon Dioxide 18 mmol/L (22-30); Chloride 114 mmol/L (98-107); Creatine Kinase 831 U/L (30-135); Glucose 203 mg/dL (74-99); Non-African American GFR(CKD) 32 (>60 ml/min/1.73 sqM); Potassium 4.3 mmol/L (3.5-5.1); Sodium 143 mmol/L (137-145); Total Bilirubin 1.4 mg/dL (0.2-1.3); Total Protein 5.5 g/dL (6.3-8.2)
[2022-06-14] MEDS ORDERED: SODIUM CHLORIDE 0.9% 500 ML 500 ML IV STA (15:56)
--- NOTE | 2022-06-14 16:25 | XR ---
EXAMINATION TYPE: XR chest 1V portable DATE OF EXAM: 06/14/2022 3:50 PM COMPARISON: Chest x-ray 06/09/2022 TECHNIQUE: XR chest 1V portable . CLINICAL INDICATION:Female, 66 years old with history of trauma; Patient is rotated which limits full evaluation. FINDINGS: Lungs/Pleura: Low lung volumes are present. Patchy perihilar airspace opacities bilaterally which may relate to low volumes. No pneumothorax or pleural effusions. Pulmonary vascularity: Mild pulmonary vascular congestion. Heart/mediastinum: Cardiomediastinal silhouette is enlarged and stable. Three lead cardiac conduction device overlying the left hemithorax . Musculoskeletal: Degenerative changes of the shoulder joints. Degenerative changes of the thoracic sp ine and acromioclavicular joints. IMPRESSION: Perihilar airspace opacities and mild pulmonary vascular congestion which may relate to crowding from low lung volumes.
[2022-06-14 16:32] LABS: Appearance,Urine Cloudy (Clear); Bacteria,Urine Rare /hpf; Bilirubin,Urine Negative (Negative); Blood,Urine Large (Negative); Color,Urine Yellow; Glucose,Urine (UA) 4+ (Negative); Hyaline Casts,Urine 1 /lpf (0-2); Ketones,Urine 1+ (Negative); Leukocyte Esterase,Urine Moderate (Negative); Mucus,Urine Rare /hpf; Nitrite,Urine Negative (Negative); PH, Urine 5.5 (5.0-8.0); Protein,Urine 1+ (Negative); RBC,Urine 2 /hpf (0-5); Specific Gravity,Urine 1.022 (1.001-1.035); Squamous Epithelial Cell,Urine <1 /hpf (0-4); Urobilinogen,Urine <2.0 mg/dL (<2.0); WBC,Urine 6 /hpf (0-5)
[2022-06-14 16:36] LABS: Amphetamine Screen,Urine Not Detected (NotDetected); Barbiturate Screen,Urine Not Detected (NotDetected); Benzodiazepines Screen,Urine Not Detected (NotDetected); Cocaine Screen,Urine Not Detected (NotDetected); Methadone Screen, Urine Not Detected (NotDetected); Opiate Screen,Urine Detected (NotDetected); Oxycodone Screen, Urine Not Detected (NotDetected); Phencyclidine Screen,Urine Not Detected (NotDetected); Tricyclic Antidepressant,Urine Not Detected (NotDetected); Urn Cannabinoid Scrn Not Detected (NotDetected)
--- NOTE | 2022-06-14 17:18 | XR ---
EXAMINATION TYPE: XR pelvis AP view DATE OF EXAM: 06/14/2022 3:50 PM INDICATION: Patient age:Female; 66 years old; Reason for study: Trauma; [facility]. COMPARISON: Lumbar spine 05/19/2022 TECHNIQUE: The pelvis was examined in AP projection. FINDINGS: No evidence for fracture or dislocation. Degenerative changes are appreciated at the hip joints bilat erally. Lumbar fusion hardware with transverse screws bridging the sacroiliac joints are noted. Hardw are appears grossly intact on this single projection. Soft tissues are within normal limits. Pelvic p hleboliths noted. IMPRESSION: No evidence for fracture or dislocation. Degenerative changes of the hip joints bilaterally.
--- NOTE | 2022-06-14 17:18 | CT ---
EXAMINATION TYPE: CT brain cspine wo con CT DLP: 3206 mGycm, Automated exposure control for dose reduction was used. DATE OF EXAM: 06/14/2022 4:38 PM COMPARISON: CT brain 05/30/2019. CLINICAL INDICATION:Female, 66 years old with history of trauma; Fall TECHNIQUE: Brain: Multiple axial CT images of the brain were obtained without IV contrast. Cspine: Axial CT images from the skull base to the inferior aspect of T2 we obtained without intraven ous contrast. Coronal and sagittal reformatted images were also reviewed. FINDINGS: Brain: Extra-axial spaces: No abnormal extra-axial fluid collections. Ventricular system: Within normal limits Cerebral parenchyma: No acute intraparenchymal hemorrhage or mass effect. The slaughter-white junction is well differentiated. Cerebellum: Unremarkable. Mass effect: No evidence of midline shift. Intracranial vasculature: unremarkable Soft tissues: Normal. Calvarium/osseous structures: No depressed skull fracture. Benign hyperostosis frontalis noted. Paranasal sinuses and mastoid air cells: Left maxillary mucus retention cyst. Remaining paranasal sin uses are clear.Mastoid air cells are Clear Visualized orbits: Bilateral aphakia Cervical spine: Fracture: None. Osseous structures: Multilevel degenerative disc disease changes with endplate spurring and disc oste ophyte complex's. Multilevel uncovertebral and facet hypertrophy present. Vertebral alignment: Within normal limits. Spinal canal/Neural Foramina: Disc osteophyte complexes at C4-C5 C6-C7 and C7-T1 with at least mild s pato canal stenosis. Facet joint uncovertebral joint arthropathy scattered throughout the cervical s pine with varying degrees of neural foraminal stenosis. Neck soft tissues: Prevertebral soft tissues are within normal limits. Other: The airway is patent. Hyperdense left thyroid nodule. Left airspace opacities noted at the gianluca g apices, better characterized on same-day CT chest. IMPRESSION: 1. No acute intracranial process. 2. No evidence of cervical spine fracture. 3. Multilevel degenerative disc disease and disc osteophyte complexes. 4. Groundglass airspace opacities concerning for acute infectious process, please see same-day chest CT.
--- NOTE | 2022-06-14 17:32 | CT ---
EXAMINATION TYPE: CT thor lumbar spine wo con DATE OF EXAM: 06/14/2022 4:39 PM CLINICAL INDICATION:Female, 66 years old with history of trauma; Fall COMPARISON: CT chest abdomen pelvis 06/14/2022, CT lumbar spine 11/14/2020 TECHNIQUE: Axial images of the thoracic and lumbar spine were obtained without contrast. Coronal and sagittal reformats were performed. CT DLP: 3206 mGycm, Automated exposure control for dose reduction was used. CT Contrast: Contrast used: None Oral contrast used: None Beam hardening from lumbar fusion hardware limits subtle evaluation at these levels. FINDINGS: Thoracic: The thoracic vertebral bodies have preserved heights and alignment. Multilevel intervertebral disc s pace narrowing with calcification of the intervertebral disc. No evidence of extradural defects nor s ignificant spinal canal narrowing at any thoracic vertebral body level. Lumbar: Alignment: There are 5 lumbar type vertebral bodies within normal alignment. Bone: No evidence of fracture is identified. Posterior decompression changes from the L1-L5 vertebra l levels. Posterior lumbar fusion hardware with transpedicular rods and artificial disc spacers are p resent at multiple levels. Fixation screws traversing the sacroiliac joints bilaterally. Retained lef t lateral plate with L3 fixation screw redemonstrated. Discs: T12-L1: No spinal canal or neural foraminal stenosis is identified. L1-L2, L2-L3, L3-L4, L4-L5 and L5-S1.: Metallic beam hardening artifact limits evaluation. No gross e vidence for severe central. Mild neural foraminal stenosis of L3-L4 with mild bilateral neural forami nal stenosis of L5-S1. Remaining neural foramen are grossly patent. Other: Postsurgical changes to the midline soft tissues of the lower lumbar spine. Visualized portion s of the abdomen and chest are better characterized on same-day CT. IMPRESSION: 1. Extensive postsurgical changes to the lumbar spine. Metallic hardening artifact limits evaluation at these levels. There is no evidence for acute fracture or significant spinal canal stenosis of the visualized lumbar spine. 2. Multilevel degenerative changes of the visualized cervical and thoracic spine. No acute osseous ab normality. 3. Please see same-day chest abdomen pelvis CT for additional findings.
--- NOTE | 2022-06-14 17:32 | CT ---
EXAMINATION TYPE: CT ChestAbdPelvis wo con CT DLP: 3206 mGycm, Automated exposure control for dose reduction was used. DATE OF EXAM: 06/14/2022 4:38 PM COMPARISON: CT lumbar spine 06/14/2022 CT chest 06/09/2022 CLINICAL INDICATION:Female, 66 years old with history of fall; PHH, Fall Technique: Multiple axial images of the chest, abdomen, and pelvis were obtained. Two-dimensional cor onal and sagittal reconstructions were obtained. Contrast used none Oral contrast used: without Oral Contrast Findings: CHEST: LUNGS/ PLEURA: Multifocal ground glass airspace opacities throughout the lungs bilaterally (series 40 4, image 23). Low lung volumes on the left. No evidence for pneumothorax or pleural effusion. AIRWAY: Patent and unremarkable. HEART: Mild cardiomegaly.Increased density within the coronary arteries may relate to sclerosis versu s vascular stents. Cardiac defibrillator in place. MEDIASTINUM: No gross evidence of adenopathy. VASCULATURE: Atherosclerotic calcifications are present throughout the aorta and its branches. MUSCULOSKELETAL: Moderate disc degeneration changes are present throughout the visualized cervical an d thoracolumbar spine. SOFT TISSUES/LYMPH NODES: Unremarkable. LOWER NECK: No significant findings. ABDOMEN: ABDOMEN LIVER: Diffusely hypoattenuating parenchyma. GALLBLADDER AND BILE DUCTS: The gallbladder is surgically absent. PANCREAS: Unremarkable. SPLEEN: Unremarkable. ADRENAL GLANDS: Unremarkable. KIDNEYS AND URETERS: No evidence of hydronephrosis or renal calculus. The ureters are unremarkable. Metallic surgical clip in the left kidney. PELVIS BLADDER: Unremarkable REPRODUCTIVE: Unremarkable. ABDOMEN & PELVIS STOMACH AND BOWEL: Stomach and duodenum are unremarkable. No evidence of bowel obstruction. PERITONEUM: No evidence of pneumoperitoneum or free fluid. VASCULATURE: Mild atherosclerotic calcifications are present throughout the abdominal aorta and its b ranches. MUSCULOSKELETAL: Extensive post surgical changes to the lumbar spine with lumbar fusion hardware span genaro L2-S1 levels with artificial disc spacers and posterior decompression changes. Degenerative pacheco ges of the hip joints and pubic symphysis are noted. Multilevel degenerative changes of the thoracic and cervical spine. Transverse fixation screws spanning the sacroiliac joints. Hardware appears gross ly intact. LYMPH NODES: No gross evidence for lymphadenopathy. SOFT TISSUE/ABDOMINAL WALL: Unremarkable IMPRESSION: 1. Multifocal groundglass airspace opacities within the lung are concerning for acute infectious proc ess such as atypical pneumonia. 2. No acute intra-abdominal process. 3. Extensive postsurgical changes to the lumbar spine with associated degenerative changes.
--- NOTE | 2022-06-14 17:54 | ED ---
General Adult HPI - General Chief complaint: Fall Stated complaint: Lower back pain Time Seen by Provider: 06/14/22 14:16 Source: patient, RN notes reviewed, old records reviewed Mode of arrival: EMS Limitations: no limitations - History of Present Illness Initial comments: Patient is a 66-year-old female who presents emergency department after being fo und down on the ground at home. States she fell and was unable to get back up and has been crawling around since . It is currently Thursday afternoon. States she had a mechanical fall when ambulating to the bathroom with her walker. Has a history of bilateral neuropathy in her legs and feet. Has a history of CK D. History lumbar spine surgery. Has a history of chronic pain. She was finally able to contact EMS today who brought to the emergency department. States she did not lose consciousness. She is not on blood thinners. Has nonspecific lower back pain, which is somewhat chronic. Also some numbness of the left lower extremity which is chronic since the early . Denies any jose abdominal pain but states some overall discomfort intermittently that is nonspecific. Denies any chest pain. Denies any midline cervical, thoracic spine pain. Denies any lower extremity injuries other obvious. His no other acute complaints at this time. Presents over concern for being on the ground for the last 2 days after mechanical fall.Patient currently is getting over Covid 19 infection. - Related Data Home Medications Medication Instructions Recorded Confirmed Aspirin EC [Ecotrin Low Dose] 81 mg PO HS 11/02/18 06/14/22 Montelukast [Singulair] 10 mg PO HS 11/02/18 06/14/22 Atorvastatin [Lipitor] 20 mg PO HS 09/05/19 06/14/22 Meclizine [Antivert] 12.5 mg PO Q8H 09/05/19 06/14/22 Topiramate [Topamax] 50 mg PO HS 09/05/19 06/14/22 carvediloL [Coreg] 6.25 mg PO BID 09/05/19 06/14/22 calcitrioL [Rocaltrol] 0.25 mcg PO NORRIS 12/06/19 06/14/22 Budesonide [Pulmicort Flexhaler] 2 puff INHALATION RT-BID 02/09/20 06/14/22 Docusate [Colace] 100 mg PO DAILY 02/09/20 06/14/22 Insulin Glargine,Hum.rec.anlog 36 unit SQ HS 02/09/20 06/14/22 [Lantus Solostar Pen] Insulin Lispro [humaLOG Kwikpen] 10 unit SQ TID-W/MEALS 02/09/20 06/14/22 Magnesium Oxide [Shaikh] 1,000 mg PO HS 02/09/20 06/14/22 Albuterol Sulfate [Ventolin HFA] 2 puff INHALATION RT-QID PRN 04/20/20 06/14/22 Azithromycin [Zithromax Z Pack] See Taper PO DIRECTED 06/09/22 06/14/22 Benzonatate 100 mg PO TID 06/09/22 06/14/22 Cyanocobalamin (Vitamin B-12) 1,000 mcg PO DAILY 06/09/22 06/14/22 [Vitamin B-12] Dapagliflozin Propanediol [Farxiga] 5 mg PO DAILY 06/09/22 06/14/22 Ergocalciferol [Vitamin D2 (1250 1,250 mcg PO QMONTHLY 06/09/22 06/14/22 Mcg = [id number] Iu)] Ferrous Sulfate [Iron (65 MG 325 mg PO DAILY 06/09/22 06/14/22 Elemental)] Furosemide [Lasix] 40 mg PO DAILY 06/09/22 06/14/22 Gabapentin 600 mg PO QID 06/09/22 06/14/22 HYDROcodone/APAP 10-325MG [[place] 1 tab PO QID 06/09/22 06/14/22 10-325] Levofloxacin [Levaquin] 250 mg PO DAILY 06/09/22 06/14/22 Midodrine HCl [ProAmatine] 10 mg PO TID 06/09/22 06/14/22 Protonix 40mg Susp Packet 40 mg PO DAILY 06/09/22 06/14/22 Sertraline HCl [Zoloft] 50 mg PO DAILY 06/09/22 06/14/22 allopurinoL 100 mg PO DAILY 06/09/22 06/14/22 dexAMETHasone [Decadron] 6 mg PO DAILY 06/09/22 06/14/22 lisinopriL [Zestril] 2.5 mg PO DAILY 04/10/23 04/15/23 Previous Rx's Medication Instructions Recorded Budesonide-Formot 160-4.5 Mcg 2 puff INHALATION RT-BID 30 Days 06/11/22 [Symbicort 160-4.5 Mcg Inhaler] #1 each Allergies Allergy/AdvReac Type Severity Reaction Status Date / Time No Known Allergies Allergy Verified 06/14/22 16:02 Review of Systems ROS Statement: Those systems with pertinent positive or pertinent negative responses have been documented in the HPI. Review of Systems: CONST: Denies fever EYES: Denies blurry vision ENT: Denies nasal congestion C/V: Denies Chest pain RESP: Denies shortness of breath GI: Endorses generalized abdominal discomfort : Denies dysuria SKIN: Denies rash. MSK: Endorses chronic extremity pain NEURO: Denies headache ROS Other: All systems not noted in ROS Statement are negative. Past Medical History Past Medical History: Asthma, Diabetes Mellitus, GERD/Reflux, Hyperlipidemia, Musculoskeletal Disorder, Osteoarthritis (OA), Pneumonia, Renal Disease, Sleep Apnea/CPAP/BIPAP, Vascular Disorder Additional Past Medical History / Comment(s): neuropathy bilateral hands/legs/feet, CKD stage III, hx kidney stones, anemia, UTI/septic due to lodged kidney stone, CARLOS with bipap, bronchitis, orthostatic hypotension with near syncope, vertigo, chronic low back pain/DDD, scoliosis, bilateral carpal tunnel syndrome, bilateral varicosities, migraines, SEE DR ALFORD H&P, gout, hx anemia(from nicked vein in left kidney after surgery for kidney stone), "embolism in my chest" History of Any Multi-Drug Resistant Organisms: None Reported Past Surgical History: AICD, Appendectomy, Back Surgery, Cardiac Ablation, Section, Cholecystectomy, Heart Catheterization, Hysterectomy, Joint Replacement, Orthopedic Surgery, Pacemaker Additional Past Surgical History / Comment(s): Rt knee arthroscopy, john total knee arthroplasty, pain clinic procedures, D&C, colonoscopy, bilateral leg varicose vein surgery, lithotripsies, surgical removal of stones, Myelogram([place]) 2018, Lumbar fusion L3-4, lumbar puncture for headaches 2019 (had spinal headache post), laminectomy, bakers cyst removed from rt knee, john cataracts, 02/12/21 back surgery with complications Past Anesthesia/Blood Transfusion Reactions: No Reported Reaction Additional Past Anesthesia/Blood Transfusion Reaction / Comment(s): Pt has received blood without reaction. Type of Cardiac Device: Permanent Pacemaker, AICD Device Placement Date:: 09/10/20 Past Psychological History: Anxiety, Depression Smoking Status: Never smoker Past Alcohol Use History: None Reported Past Drug Use History: None Reported - Past Family History Father Family Medical History: Cancer Additional Family Medical History / Comment(s): Stomach cancer. Brother(s) Family Medical History: Cancer Additional Family Medical History / Comment(s): Lung cancer. Sister(s) Family Medical History: Cancer Additional Family Medical History / Comment(s): Sister had stomach/colon/part of pancreas cancers. Mother Family Medical History: Cancer Additional Family Medical History / Comment(s): Ovarian and cervical cancer. General Exam - General Exam Comments Initial Comments: General: Appears in mild to moderate distress secondary to pain. HEAD: Normal with no signs of head trauma. EYES: PERRLA, EOMI, conjunctiva normal, no discharge.. 3 mm and equal bilaterally. ENT: Hearing grossly intact, normal oropharynx. RESPIRATORY: Clear breath sounds bilaterally. No wheezes, rales, or rhonchi. Mild hypoxia on room air. C/V: Regular rate and rhythm. S1 and S2 auscultated, no edema, peripheral pulses 2+ and intact throughout ABD: Abd is soft, nontender, nondistended. No obvious tenderness at this time. EXT: Reduced range of motion of the left lower extremity which is somewhat chronic for the patient. Some sensory deficits there is well which is chronic. Mild tenderness to palpation midline lumbar spine. No obvious mid line ten derness to palpation of the cervical or thoracic spine. No obvious extremity injury or tenderness to palpation. SKIN: No rashes or lesions observed on exposed skin. NEURO: Alert and oriented x 4. Cranial nerves II-XII intact. No focal sensory or strength deficits. ECS is 15. Limitations: no limitations Course Vital Signs 06/14/22 06/14/22 06/14/22 13:30 16:00 18:17 Temperature 98.8 F Pulse Rate 90 94 92 Respiratory 16 18 16 Rate Blood Pressure 119/61 122/60 123/65 O2 Sat by Pulse 94 L 95 94 L Oximetry Medical Decision Making - Medical Decision Making Was pt. sent in by a medical professional or institution (, PA, ROAD REPAIRER, urgent care, hospital, or penitentiary...) When possible be specific @ -No Did you speak to anyone other than the patient for history (EMS, parent, family, police, friend...)? What history was obtained from this source @ -No Did you review nursing and triage notes (agree or disagree)? Why? @ -I reviewed and agree with nursing and triage notes Were old charts reviewed (outside hosp., previous admission, EMS record, old EKG, old radiological studies, urgent care reports/EKG's, penitentiary records)? Report findings @ -Old EKGs were reviewed from May 2022, as well as visit from last week which revealed admission for Covid pneumonia Differential Diagnosis (chest pain, altered mental status, abdominal pain women, abdominal pain men, vaginal bleeding, weakness, fever, dyspnea, syncope, headache, dizziness, GI bleed, back pain, seizure, CVA, palpatations, mental health, musculoskeletal)? @ -Traumatic injury, rhabdomyolysis, sprain, strain, mechanical fall, dehydration, acute kidney injury, Covid 19 pneumonia. This list is not all inclusive. EKG interpreted by me (3pts min.). @ -As above X-rays interpreted by me (1pt min.). @ -Chest x-ray reveals findings concerning for Covid 19 pneumonia with bilateral infiltrates. Known recent diagnosis of Covid 19 pneumonia. Pelvis x- ray reveals no obvious traumatic injury. CT interpreted by me (1pt min.). @ -CT imaging of the brain, spine, chest and pelvis reveal no obvious track injury. Showed groundglass opacities concerning for viral pneumonia likely Covid 19 pneumonia. U/S interpreted by me (1pt. min.). @ -None done What testing was considered but not performed or refused? (CT, X-rays, U/S, labs)? Why? @ -None What meds were considered but not given or refused? Why? @ -None Did you discuss the management of the patient with other professionals (professionals i.e. , PA, ROAD REPAIRER, lab, RT, psych nurse, social service manager, manager intermediate, teacher, aircraft electronics technical officer, case liner)? Give summary @ -No Was smoking cessation discussed for >3mins.? @ -No Was critical care preformed (if so, how long)? @ -Yes, 35 minutes Were there social determinants of health that impacted care today? How? (Homelessness, low income, unemployed, alcoholism, drug addiction, transportation, low edu. Level, literacy, decrease access to med. care, residential, rehab)? @ -No Was there de-escalation of care discussed even if they declined (Discuss DNR or withdrawal of care, Hospice)? DNR status @ -No What co-morbidities impacted this encounter? (DM, HTN, Smoking, COPD, CAD, Cancer, CVA, ARF, Chemo, Hep., AIDS, mental health diagnosis, sleep apnea, morbid obesity)? @ -None Was patient admitted / discharged? Hospital course, mention meds given and route, prescriptions, significant lab abnormalities, going to OR and other pertinent info. @ -Based on the patient's presentation and physical exam, presents complaining of generalized discomfort and pain after being on the ground for the last 2 days after falling and being unable to stand up. We will obtain trauma labs, as well as pain CT imaging as the patient is nonspecific pain. She was recently discharged a few days ago after being admitted for Covid 19 pneumonia. Has had increased shortness of breath since then. Has a history of asthma but has no wheezing. Mild hypoxia on room air. She was in agreement with this plan. We will provide her with IV fluid bolus, as well as morphine for pain control. Patient was in agreement with this plan. EKG showed no signs of acute ischemia. Imaging was remarkable finding no obvious signs of traumatic injury. Patient does have findings concerning for Covid 19 pneumonia with bilateral groundglass opacities. Laboratory studies are remarkable for a leukocytosis of 14.2, an elevated BUN and creatinine in the setting of CK D, as well as a creatinine kinase of 831 which is not past the threshold to diagnose the patient with rhabdomyolysis. After the patient, due to her fall, as well as concerned for dehydration as well as mild hypoxia did recommend we admit her to the hospital. She was in agreement this plan. I did discuss his case with Dr. Ye who agreed to see it as a consult as the on-call trauma surgeon. Patient was in agreement this plan. Patient is not have significant pitting edema as well as has not had any oral intake for 2 days including fluids which I believe this makes a worsening Covid infection more likely than a CHF his estimation. However we will obtain a screening echo at this time. BNP is elevated which could be a result of the Covid infection. Has a known Covid infection. We will resume the patient's home lasix likely she presents as more of a dehydration picture considering the story and presentation. Patient was discharged home on oral azithromycin and Levaquin which will be continued at this time. Pulmonology was consulted. I also spoke with the admitting team, Dr. Snell who was in agreement this plan Undiagnosed new problem with uncertain prognosis? @ -No Drug Therapy requiring intensive monitoring for toxicity (Heparin, Nitro, Insulin, Cardizem)? @ -No Were any procedures done? @ -No Diagnosis/symptom? @ -Fall, dehydration Acute, or Chronic, or Acute on Chronic? @ -Acute Uncomplicated (without systemic symptoms) or Complicated (systemic symptoms)? @ -Complicated Side effects of treatment? @ -No Exacerbation, Progression, or Severe Exacerbation? @ -No Poses a threat to life or bodily function? How? (Chest pain, [place], [place], pneumonia, PE, COPD, DKA, ARF, appy, cholecystitis, CVA, Diverticulitis, Homicidal, Suicidal, threat to staff... and all critical care pts) @ -No Diagnosis/symptom? @ -Hypoxia, likely Covid 19 pneumonia Acute, or Chronic, or Acute on Chronic? @ -Acute Uncomplicated (without systemic symptoms) or Complicated (systemic symptoms)? @ -Complicated Side effects of treatment? @ -none Exacerbation, Progression, or Severe Exacerbation] @ -no Poses a threat to life or bodily function? @ -Yes, can result in significant morbidity and mortality if not addressed. - Lab Data Result diagrams: 06/14/22 14:44 06/14/22 14:44 Lab Results 06/14/22 06/14/22 06/14/22 Range/Units 14:44 14:44 14:44 WBC 14.2 H (3.8-10.6) k/uL RBC 4.10 (3.80-5.40) m/uL Hgb 12.8 (11.4-16.0) gm/dL Hct 39.5 (34.0-46.0) % MCV 96.2 (80.0-100.0) fL MCH 31.3 (25.0-35.0) pg MCHC 32.5 (31.0-37.0) g/dL RDW 14.9 (11.5-15.5) % Plt Count 102 L (150-450) k/uL MPV 8.6 Neutrophils % 93 % Lymphocytes % 3 % Monocytes % 3 % Eosinophils % 0 % Basophils % 0 % Neutrophils # 13.2 H (1.3-7.7) k/uL Lymphocytes # 0.4 L (1.0-4.8) k/uL Monocytes # 0.5 (0-1.0) k/uL Eosinophils # 0.1 (0-0.7) k/uL Basophils # 0.0 (0-0.2) k/uL PT 10.8 (9.0-12.0) sec INR 1.0 (<1.2) APTT 22.4 (22.0-30.0) sec Sodium (137-145) mmol/L Potassium (3.5-5.1) mmol/L Chloride (98-107) mmol/L Carbon Dioxide (22-30) mmol/L Anion Gap mmol/L BUN (7-17) mg/dL Creatinine (0.52-1.04) mg/dL Est GFR (CKD-EPI)AfAm (>60 ml/min/1.73 sqM) Est GFR (CKD-EPI)NonAf (>60 ml/min/1.73 sqM) Glucose (74-99) mg/dL Plasma Lactic Acid Ibrahima (0.7-2.0) mmol/L Calcium (8.4-10.2) mg/dL Total Bilirubin (0.2-1.3) mg/dL AST (14-36) U/L ALT (4-34) U/L Alkaline Phosphatase (38-126) U/L Creatine Kinase (30-135) U/L Troponin I (0.000-0.034) ng/mL NT-Pro-B Natriuret Pep pg/mL Total Protein (6.3-8.2) g/dL Albumin (3.5-5.0) g/dL Urine Color Yellow Urine Appearance Cloudy H (Clear) Urine pH 5.5 (5.0-8.0) Ur Specific [place] 1.022 (1.001-1.035) Urine Protein 1+ H (Negative) Urine Glucose (UA) 4+ H (Negative) Urine Ketones 1+ H (Negative) Urine Blood Large H (Negative) Urine Nitrite Negative (Negative) Urine Bilirubin Negative (Negative) Urine Urobilinogen <2.0 (<2.0) mg/dL Ur Leukocyte Esterase Moderate H (Negative) Urine RBC 2 (0-5) /hpf Urine WBC 6 H (0-5) /hpf Ur Squamous Epith Cells <1 (0-4) /hpf Urine Bacteria Rare H (None) /hpf Hyaline Casts 1 (0-2) /lpf Urine Mucus Rare H (None) /hpf Urine Opiates Screen Detected H (NotDetected) Ur Oxycodone Screen Not Detected (NotDetected) Urine Methadone Screen Not Detected (NotDetected) Ur Propoxyphene Screen Not Detected (NotDetected) Ur Barbiturates Screen Not Detected (NotDetected) U Tricyclic Antidepress Not Detected (NotDetected) Ur Phencyclidine Scrn Not Detected (NotDetected) Ur Amphetamines Screen Not Detected (NotDetected) U Methamphetamines Scrn Not Detected (NotDetected) U Benzodiazepines Scrn Not Detected (NotDetected) Urine Cocaine Screen Not Detected (NotDetected) U Marijuana (THC) Screen Not Detected (NotDetected) Serum Alcohol mg/dL Blood Type Blood Type Recheck Bld Type Recheck Status Antibody Screen Spec Expiration Date 06/14/22 06/14/22 06/14/22 Range/Units 14:44 14:44 14:44 WBC (3.8-10.6) k/uL RBC (3.80-5.40) m/uL Hgb (11.4-16.0) gm/dL Hct (34.0-46.0) % MCV (80.0-100.0) fL MCH (25.0-35.0) pg MCHC (31.0-37.0) g/dL RDW (11.5-15.5) % Plt Count (150-450) k/uL MPV Neutrophils % % Lymphocytes % % Monocytes % % Eosinophils % % Basophils % % Neutrophils # (1.3-7.7) k/uL Lymphocytes # (1.0-4.8) k/uL Monocytes # (0-1.0) k/uL Eosinophils # (0-0.7) k/uL Basophils # (0-0.2) k/uL PT (9.0-12.0) sec INR (<1.2) APTT (22.0-30.0) sec Sodium 143 (137-145) mmol/L Potassium 4.3 (3.5-5.1) mmol/L Chloride 114 H (98-107) mmol/L Carbon Dioxide 18 L (22-30) mmol/L Anion Gap 11 mmol/L BUN 43 H (7-17) mg/dL Creatinine 1.65 H (0.52-1.04) mg/dL Est GFR (CKD-EPI)AfAm 37 (>60 ml/min/1.73 sqM) Est GFR (CKD-EPI)NonAf 32 (>60 ml/min/1.73 sqM) Glucose 203 H (74-99) mg/dL Plasma Lactic Acid Ibrahima 1.3 (0.7-2.0) mmol/L Calcium 8.4 (8.4-10.2) mg/dL Total Bilirubin 1.4 H (0.2-1.3) mg/dL AST 48 H (14-36) U/L ALT 31 (4-34) U/L Alkaline Phosphatase 97 (38-126) U/L Creatine Kinase 831 H (30-135) U/L Troponin I 0.017 (0.000-0.034) ng/mL NT-Pro-B Natriuret Pep pg/mL Total Protein 5.5 L (6.3-8.2) g/dL Albumin 3.2 L (3.5-5.0) g/dL Urine Color Urine Appearance (Clear) Urine pH (5.0-8.0) Ur Specific [place] (1.001-1.035) Urine Protein (Negative) Urine Glucose (UA) (Negative) Urine Ketones (Negative) Urine Blood (Negative) Urine Nitrite (Negative) Urine Bilirubin (Negative) Urine Urobilinogen (<2.0) mg/dL Ur Leukocyte Esterase (Negative) Urine RBC (0-5) /hpf Urine WBC (0-5) /hpf Ur Squamous Epith Cells (0-4) /hpf Urine Bacteria (None) /hpf Hyaline Casts (0-2) /lpf Urine Mucus (None) /hpf Urine Opiates Screen (NotDetected) Ur Oxycodone Screen (NotDetected) Urine Methadone Screen (NotDetected) Ur Propoxyphene Screen (NotDetected) Ur Barbiturates Screen (NotDetected) U Tricyclic Antidepress (NotDetected) Ur Phencyclidine Scrn (NotDetected) Ur Amphetamines Screen (NotDetected) U Methamphetamines Scrn (NotDetected) U Benzodiazepines Scrn (NotDetected) Urine Cocaine Screen (NotDetected) U Marijuana (THC) Screen (NotDetected) Serum Alcohol <10 mg/dL Blood Type Blood Type Recheck Bld Type Recheck Status Antibody Screen Spec Expiration Date 06/14/22 06/14/22 Range/Units 14:44 14:44 WBC (3.8-10.6) k/uL RBC (3.80-5.40) m/uL Hgb (11.4-16.0) gm/dL Hct (34.0-46.0) % MCV (80.0-100.0) fL MCH (25.0-35.0) pg MCHC (31.0-37.0) g/dL RDW (11.5-15.5) % Plt Count (150-450) k/uL MPV Neutrophils % % Lymphocytes % % Monocytes % % Eosinophils % % Basophils % % Neutrophils # (1.3-7.7) k/uL Lymphocytes # (1.0-4.8) k/uL Monocytes # (0-1.0) k/uL Eosinophils # (0-0.7) k/uL Basophils # (0-0.2) k/uL PT (9.0-12.0) sec INR (<1.2) APTT (22.0-30.0) sec Sodium (137-145) mmol/L Potassium (3.5-5.1) mmol/L Chloride (98-107) mmol/L Carbon Dioxide (22-30) mmol/L Anion Gap mmol/L BUN (7-17) mg/dL Creatinine (0.52-1.04) mg/dL Est GFR (CKD-EPI)AfAm (>60 ml/min/1.73 sqM) Est GFR (CKD-EPI)NonAf (>60 ml/min/1.73 sqM) Glucose (74-99) mg/dL Plasma Lactic Acid Ibrahima (0.7-2.0) mmol/L Calcium (8.4-10.2) mg/dL Total Bilirubin (0.2-1.3) mg/dL AST (14-36) U/L ALT (4-34) U/L Alkaline Phosphatase (38-126) U/L Creatine Kinase (30-135) U/L Troponin I (0.000-0.034) ng/mL NT-Pro-B Natriuret Pep 2050 pg/mL Total Protein (6.3-8.2) g/dL Albumin (3.5-5.0) g/dL Urine Color Urine Appearance (Clear) Urine pH (5.0-8.0) Ur Specific [place] (1.001-1.035) Urine Protein (Negative) Urine Glucose (UA) (Negative) Urine Ketones (Negative) Urine Blood (Negative) Urine Nitrite (Negative) Urine Bilirubin (Negative) Urine Urobilinogen (<2.0) mg/dL Ur Leukocyte Esterase (Negative) Urine RBC (0-5) /hpf Urine WBC (0-5) /hpf Ur Squamous Epith Cells (0-4) /hpf Urine Bacteria (None) /hpf Hyaline Casts (0-2) /lpf Urine Mucus (None) /hpf Urine Opiates Screen (NotDetected) Ur Oxycodone Screen (NotDetected) Urine Methadone Screen (NotDetected) Ur Propoxyphene Screen (NotDetected) Ur Barbiturates Screen (NotDetected) U Tricyclic Antidepress (NotDetected) Ur Phencyclidine Scrn (NotDetected) Ur Amphetamines Screen (NotDetected) U Methamphetamines Scrn (NotDetected) U Benzodiazepines Scrn (NotDetected) Urine Cocaine Screen (NotDetected) U Marijuana (THC) Screen (NotDetected) Serum Alcohol mg/dL Blood Type O Positive Blood Type Recheck O Pos Bld Type Recheck Status No Antibody Screen NEGATIVE Spec Expiration Date 06/17/20222343 - EKG Data -: EKG Interpreted by Me EKG Comments: 12-lead Electrocardiogram Interpretation Note EKG was reviewed and interpreted by myself. 12-lead ECG performed at 1429 is interpreted by me as revealing ventricularly paced rhythm at a rate of 92 beats per minute. [place] is normal. ID interval is 150 ms, QRS durations 118 ms, QTc is 439 ms.. There were no acute ST or T wave abnormalities to suggest myocardial ischemia or injury. R wave progression across the precordium was satisfactory. By my interpretation this EKG is non-diagnostic for acute ischemia. When compared with EKG from 06/09/2022, no significant change. Critical Care Time Critical Care Time: Yes Total Critical Care Time: 35 Critical Care Time: Upon my evaluation, this patient had a high probability of imminent or life- threatening deterioration due to hypoxia likely secondary to Covid pneumonia, fall, dehydration, elevated creatinine kinase, which required my direct attention, intervention, and personal management. I have personally provided 35 minutes of critical care time exclusive of time spent on separately billable procedures. Time includes review of laboratory data, radiology results, discussion with consultants, and monitoring for potential decompensation. Interventions were performed as documented in my note. Disposition Clinical Impression: Fall, Dehydration, Acute respiratory failure with hypoxia, Pneumonia due to COVID-19 virus Disposition: ADMITTED IP TO THIS HOSP Condition: Stable Time of Disposition: 17:30
[2022-06-14] MEDS ORDERED: HYDROmorphone 0.5 MG/0.5 ML SYRINGE IVP STA (18:08)
[2022-06-14] MEDS ORDERED: NALOXONE 0.4 MG/ML 1 ML VIAL IV PRN (18:10)
[2022-06-14] MEDS ORDERED: DEXTROSE 50% SYRINGE 50 ML IVP PRN ×2 (18:36)
[2022-06-14 20:55] LABS: Glucose,Whole Blood 183 mg/dL (70-110)
[2022-06-14] MEDS: MAGNESIUM OXIDE 400 MG TAB PO SCH (22:24)
[2022-06-14] MEDS: carvediloL 6.25 MG TAB PO SCH (22:25)
[2022-06-14] MEDS: BENZONATATE 100 MG CAP PO SCH (22:25)
[2022-06-14] MEDS: ATORVASTATIN 20 MG TAB PO SCH (22:25)
[2022-06-14] MEDS: GABAPENTIN 300 MG CAP PO SCH (22:25)
[2022-06-14] MEDS: HYDROcodone/APAP 10-325MG 1 EACH TAB PO SCH (22:25)
[2022-06-14] MEDS: ASPIRIN 81 MG PO SCH (22:25)
[2022-06-14] MEDS: TOPIRAMATE 25 MG TAB PO SCH (22:26)
[2022-06-14] MEDS: LEVOFLOXACIN 250 MG TAB PO SCH (22:26)
[2022-06-14] MEDS: MIDODRINE 5 MG TAB PO SCH (22:26)
[2022-06-14] MEDS: MECLIZINE 12.5 MG TAB PO SCH (22:26)
[2022-06-14] MEDS: DEXAMETHASONE SOD PHOSPHATE 10 MG/ML 1 ML VIAL IVP SCH (22:33)
[2022-06-14] MEDS: SYMBICORT 160-4.5 MCG INHALER INHALATION SCH (22:36)
[2022-06-15] MEDS: HEPARIN SODIUM,PORCINE/PF 5,000 UNIT/0.5 ML SYRINGE SQ SCH ×4 (00:13→21:36)
[2022-06-15] MEDS: FLUTICASONE 110 MCG INHALER INHALATION SCH ×3 (04:24→22:55)
[2022-06-15] MEDS: MECLIZINE 12.5 MG TAB PO SCH ×3 (04:25→18:14)
[2022-06-15 06:12] LABS: Glucose,Whole Blood 184 mg/dL (70-110)
--- NOTE | 2022-06-15 06:45 | XR ---
EXAMINATION TYPE: XR chest 1V portable DATE OF EXAM: 06/15/2022 CLINICAL HISTORY: Difficulty breathing progress study. TECHNIQUE: Single AP portable upright view of the chest is obtained. COMPARISON: Chest x-ray and CT from one day earlier FINDINGS: Cardiomegaly with multilead pacemaker/defibrillator is redemonstrated. Worsening bilateral multifocal increased opacities. Osseous structures are intact. IMPRESSION: Worsening bilateral multifocal edema and/or infiltrates noted.
[2022-06-15] MEDS: INSULIN ASPART (NovoLOG) 100 UNIT/ML VIAL SQ SCH ×3 (06:57→18:09)
[2022-06-15] MEDS: BENZONATATE 100 MG CAP PO SCH ×3 (08:09→21:39)
[2022-06-15] MEDS: GABAPENTIN 300 MG CAP PO SCH ×4 (08:09→21:37)
[2022-06-15] MEDS: carvediloL 6.25 MG TAB PO SCH ×2 (08:10→21:39)
[2022-06-15] MEDS: PANTOPRAZOLE 40 MG TABLET PO SCH (08:10)
[2022-06-15] MEDS: MIDODRINE 5 MG TAB PO SCH ×3 (08:10→22:54)
[2022-06-15] MEDS: SERTRALINE 50 MG TAB PO SCH (08:10)
[2022-06-15] MEDS: FUROSEMIDE 40 MG TAB PO SCH (08:10)
[2022-06-15] MEDS: HYDROcodone/APAP 10-325MG 1 EACH TAB PO SCH ×4 (08:10→21:37)
[2022-06-15] MEDS: allopurinoL 100 MG TAB PO SCH (08:10)
[2022-06-15] MEDS: DAPAGLIFLOZIN PROPANEDIOL 5 MG TABLET PO SCH (08:11)
[2022-06-15] MEDS: LEVOFLOXACIN 250 MG TAB PO SCH (08:11)
[2022-06-15 08:56] LABS: African American GFR (CKD) 43 (>60 ml/min/1.73 sqM); Anion Gap 8 mmol/L; Blood Urea Nitrogen 38 mg/dL (7-17); Calcium 7.8 mg/dL (8.4-10.2); Carbon Dioxide 20 mmol/L (22-30); Chloride 115 mmol/L (98-107); Glucose 191 mg/dL (74-99); Non-African American GFR(CKD) 37 (>60 ml/min/1.73 sqM); Potassium 4.7 mmol/L (3.5-5.1); Sodium 143 mmol/L (137-145)
[2022-06-15 08:59] LABS: Basophils % (A) 0 %; Eosinophils % (A) 0 %; HCT 34.6 % (34.0-46.0); HGB 11.1 gm/dL (11.4-16.0); Lymphocytes # (A) 0.3 k/uL (1.0-4.8); Lymphocytes % (A) 3 %; MCH 30.9 pg (25.0-35.0); MCHC 32.2 g/dL (31.0-37.0); MCV 96.1 fL (80.0-100.0); Mean Platelet Volume 8.9; Monocytes # (A) 0.2 k/uL (0-1.0); Monocytes % (A) 2 %; Neutrophils # (A) 8.3 k/uL (1.3-7.7); Neutrophils % (A) 94 %; RDW 15.3 % (11.5-15.5); WBC 8.8 k/uL (3.8-10.6)
[2022-06-15] MEDS: DEXAMETHASONE SOD PHOSPHATE 10 MG/ML 1 ML VIAL IVP SCH (09:13)
[2022-06-15 09:44] LABS: Platelet Count 90 k/uL (150-450)
[2022-06-15] MEDS: SYMBICORT 160-4.5 MCG INHALER INHALATION SCH ×2 (10:05→21:58)
[2022-06-15 11:33] LABS: Glucose,Whole Blood 229 mg/dL (70-110)
--- NOTE | 2022-06-15 12:42 | P.CNPUL ---
History of Present Illness Consult date: 06/15/22 Requesting physician: Vishal Snell Reason for consult: dyspnea, asthma Chief complaint: Shortness of breath History of present illness: This is a 66-year-old female patient with a history of mild intermittent chronic bronchial asthma, diabetes mellitus type 2, hyperlipidemia, obstructive sleep apnea maintained on BiPAP, cardiomyopathy status post AICD placement, anxiety/depression, chronic kidney disease stage III, bilateral neuropathy of the lower extremities. Lifelong nonsmoker. No home oxygen. She was recently discharged from here on 06/09/2022 after being admitted for CoVID 19 infection treated with Decadron and multivitamin and discharged on 06/11/2022. The patient states on June 12 she fell at home and was unable to get herself up or call for help. She denied any loss of consciousness. Denied any injury. She was down for 2 days before she was able to get to phone and call EMS. Seen here in the emergency room on 06/14/2022. X-ray of the pelvis revealed no evidence o f fracture. Computed tomography scan of the chest abdomen pelvis revealed multifocal groundglass airspace opacities within the lungs concerning for acute infectious process such as atypical pneumonia. No acute intra-abdominal process. Extensive postsurgical changes to the lumbar spine. Computed tomography scan of the head and neck revealed no acute intracranial processes. No evidence of cervical spine fracture. Groundglass opacities seen again. Multi-level degenerative disc disease noted. ET scan of the lumbar spine revealed extensive postsurgical changes. Multilevel degenerative changes. No acute fractures. Of note, computed tomography scan of the chest dated 06/09/2022 did not reveal any evidence of groundglass opacities. She was maintaining O2 saturations in the low 90s on 2 L/m per nasal cannula. Afebrile. Hemodynamically stable. White count 8.8. Hemoglobin 11.1. Platelet count 90,000. Sodium 143. Potassium 4.7. Bicarb 20. BUN 38. Creatinine 1.46. Glucose 191. CK level 831. ProBNP 2050. Troponin negative 1. Urinalysis cloudy with 4+ glucose large amount of blood. Moderate leukocytes. High white count. Urine drug screen positive for opiates. Lima virus by PCR positive. She is seen today in consultation on the regular medical floor. She is cu rrently resting fairly comfortably in bed. Awake and alert in no acute distress. She is a dry nonproductive cough. No fever or chills. No hemoptysis. She has been initiated on Decadron, vitamin supplements, Symbicort and albuterol. Review of Systems REVIEW OF SYSTEMS: CONSTITUTIONAL: Generalized weakness. Denies any recent significant weight loss or weight gain. EYES: Denies change in vision. EARS, NOSE, MOUTH, THROAT: Denies headaches, denies sore throat. CARDIOVASCULAR: Denies chest pain, palpitations or syncopal episodes. RESPIRATORY: Positive for shortness of breath, cough, congestion no hemoptysis. GASTROINTESTINAL: Denies change in appetite, denies abdominal pain GENITOURINARY: Denies hematuria, denies infections. MUSKULOSKELETAL: Denies pain, denies swelling. INTEGUMENTARY: Denies rash, denies eczema. NEUROLOGICAL: Denies recent memory loss, no recent seizure activity. PSYCHIATRIC: Denies anxiety, denies depression. HEMATOLOGIC/LYMPHATIC: Denies anemia, denies enlarged lymph nodes. Past Medical History Past Medical History: Asthma, Diabetes Mellitus, GERD/Reflux, Hyperlipidemia, Musculoskeletal Disorder, Osteoarthritis (OA), Pneumonia, Renal Disease, Sleep Apnea/CPAP/BIPAP, Vascular Disorder Additional Past Medical History / Comment(s): neuropathy bilateral hands/legs/fe et, CKD stage III, hx kidney stones, anemia, UTI/septic due to lodged kidney stone, CARLOS with bipap, bronchitis, orthostatic hypotension with near syncope, vertigo, chronic low back pain/DDD, scoliosis, bilateral carpal tunnel syndrome, bilateral varicosities, migraines, SEE DR ALFORD H&P, gout, hx anemia(from nicked vein in left kidney after surgery for kidney stone), "embolism in my chest" History of Any Multi-Drug Resistant Organisms: None Reported Past Surgical History: AICD, Appendectomy, Back Surgery, Cardiac Ablation, Section, Cholecystectomy, Heart Catheterization, Hysterectomy, Joint Replacement, Orthopedic Surgery, Pacemaker Additional Past Surgical History / Comment(s): Rt knee arthroscopy, john total knee arthroplasty, pain clinic procedures, D&C, colonoscopy, bilateral leg varicose vein surgery, lithotripsies, surgical removal of stones, Myelogram(Norberto) 2019, Lumbar fusion L3-4, lumbar puncture for headaches 2020 (had spinal headache post), laminectomy, bakers cyst removed from rt knee, john cataracts, 02/12/21 back surgery with complications Past Anesthesia/Blood Transfusion Reactions: No Reported Reaction Additional Past Anesthesia/Blood Transfusion Reaction / Comment(s): Pt has received blood without reaction. Type of Cardiac Device: Permanent Pacemaker, AICD Device Placement Date:: 09/10/20 Past Psychological History: Anxiety, Depression Additional Psychological History / Comment(s): . Smoking Status: Never smoker Past Alcohol Use History: None Reported Additional Past Alcohol Use History / Comment(s): . Past Drug Use History: None Reported - Past Family History Father Family Medical History: Cancer Additional Family Medical History / Comment(s): Stomach cancer. Brother(s) Family Medical History: Cancer Additional Family Medical History / Comment(s): Lung cancer. Sister(s) Family Medical History: Cancer Additional Family Medical History / Comment(s): Sister had stomach/colon/part of pancreas cancers. Mother Family Medical History: Cancer Additional Family Medical History / Comment(s): Ovarian and cervical cancer. Medications and Allergies Home Medications Medication Instructions Recorded Confirmed Type Aspirin EC [Ecotrin Low Dose] 81 mg PO HS 11/02/18 06/14/22 History Montelukast [Singulair] 10 mg PO HS 11/02/18 06/14/22 History Atorvastatin [Lipitor] 20 mg PO HS 09/05/19 06/14/22 History Meclizine [Antivert] 12.5 mg PO Q8H 09/05/19 06/14/22 History Topiramate [Topamax] 50 mg PO HS 09/05/19 06/14/22 History carvediloL [Coreg] 6.25 mg PO BID 09/05/19 06/14/22 History calcitrioL [Rocaltrol] 0.25 mcg PO NORRIS 12/06/19 06/14/22 History Budesonide [Pulmicort Flexhaler] 2 puff INHALATION RT-BID 02/09/20 06/14/22 History Docusate [Colace] 100 mg PO DAILY 02/09/20 06/14/22 History Insulin Glargine,Hum.rec.anlog 36 unit SQ HS 02/09/20 06/14/22 History [Lantus Solostar Pen] Insulin Lispro [humaLOG Kwikpen] 10 unit SQ TID-W/MEALS 02/09/20 06/14/22 History Magnesium Oxide [Shaikh] 1,000 mg PO HS 02/09/20 06/14/22 History Albuterol Sulfate [Ventolin HFA] 2 puff INHALATION RT-QID PRN 04/20/20 06/14/22 History Azithromycin [Zithromax Z Pack] See Taper PO DIRECTED 06/09/22 06/14/22 History Benzonatate 100 mg PO TID 06/09/22 06/14/22 History Cyanocobalamin (Vitamin B-12) 1,000 mcg PO DAILY 06/09/22 06/14/22 History [Vitamin B-12] Dapagliflozin Propanediol [Farxiga] 5 mg PO DAILY 06/09/22 06/14/22 History Ergocalciferol [Vitamin D2 (1250 1,250 mcg PO QMONTHLY 06/09/22 06/14/22 History Mcg = 76853 Iu)] Ferrous Sulfate [Iron (65 MG 325 mg PO DAILY 06/09/22 06/14/22 History Elemental)] Furosemide [Lasix] 40 mg PO DAILY 06/09/22 06/14/22 History Gabapentin 600 mg PO QID 06/09/22 06/14/22 History HYDROcodone/APAP 10-325MG [[place] 1 tab PO QID 06/09/22 06/14/22 History 10-325] Levofloxacin [Levaquin] 250 mg PO DAILY 06/09/22 06/14/22 History Midodrine HCl [ProAmatine] 10 mg PO TID 06/09/22 06/14/22 History Protonix 40mg Susp Packet 40 mg PO DAILY 06/09/22 06/14/22 History Sertraline HCl [Zoloft] 50 mg PO DAILY 06/09/22 06/14/22 History allopurinoL 100 mg PO DAILY 06/09/22 06/14/22 History dexAMETHasone [Decadron] 6 mg PO DAILY 06/09/22 06/14/22 History lisinopriL [Zestril] 2.5 mg PO DAILY 06/09/22 06/14/22 History Budesonide-Formot 160-4.5 Mcg 2 puff INHALATION RT-BID 30 Days 06/11/22 06/14/22 Rx [Symbicort 160-4.5 Mcg Inhaler] #1 each Allergies Allergy/AdvReac Type Severity Reaction Status Date / Time No Known Allergies Allergy Verified 06/14/22 16:02 Physical Exam Vitals: Vital Signs Temp Pulse Pulse Resp BP BP Pulse Ox 06/15/22 07:40 98.0 F 90 16 123/69 87 L 06/15/22 02:00 98.2 F 90 101/63 93 L 06/14/22 20:00 99.5 F 90 16 132/69 92 L 06/14/22 19:11 88 18 122/64 95 06/14/22 18:17 92 16 123/65 94 L 06/14/22 16:00 94 18 122/60 95 06/14/22 13:30 98.8 F 90 16 119/61 94 L Intake and Output 06/14/22 06/15/22 06/15/22 22:59 06:59 14:59 Intake Total 600 Balance 600 Intake: Intake, IV Titration 600 Amount Sodium Chloride 0.9% 1, 600 000 ml @ 100 mls/hr IV . Q10H STA Rx#:[id number] Other: Voiding Method External Catheter External Catheter # Voids 2 1 Weight 104.326 kg GENERAL EXAM: Alert, 66-year-old female, on 2 L nasal cannula, comfortable in no apparent distress. HEAD: Normocephalic. EYES: Normal reaction of pupils, equal size. NOSE: Clear with pink turbinates. THROAT: No erythema or exudates. NECK: No masses, no JVD. CHEST: No chest wall deformity. LUNGS: Equal air entry with crackles in the posterior bases. CVS: S1 and S2 normal with no audible murmur, regular rhythm. ABDOMEN: No hepatosplenomegaly, normal bowel sounds, no guarding or rigidity. SPINE: No scoliosis or deformity SKIN: No rashes CENTRAL NERVOUS SYSTEM: No focal deficits, tone is normal in all 4 extremities. EXTREMITIES: There is no peripheral edema. No clubbing, no cyanosis. Peripheral pulses are intact. Results - Laboratory Findings CBC and BMP: 06/15/22 06:18 06/15/22 06:18 PT/INR, D-dimer PT 10.8 sec (9.0-12.0) 06/14/22 14:44 INR 1.0 (<1.2) 06/14/22 14:44 Abnormal lab findings: Abnormal Labs 06/14/22 06/14/2223 14:44 14:44 14:44 WBC 14.2 H RBC Hgb Plt Count 102 L Neutrophils # 13.2 H Lymphocytes # 0.4 L Chloride 114 H Carbon Dioxide 18 L BUN 43 H Creatinine 1.65 H Glucose 203 H POC Glucose (mg/dL) Calcium Total Bilirubin 1.4 H AST 48 H Creatine Kinase 831 H Total Protein 5.5 L Albumin 3.2 L Urine Appearance Cloudy H Urine Protein 1+ H Urine Glucose (UA) 4+ H Urine Ketones 1+ H Urine Blood Large H Ur Leukocyte Esterase Moderate H Urine WBC 6 H Urine Bacteria Rare H Urine Mucus Rare H Urine Opiates Screen Detected H Coronavirus (PCR) 06/14/22 06/14/22 06/15/22 18:18 20:44 06:10 WBC RBC Hgb Plt Count Neutrophils # Lymphocytes # Chloride Carbon Dioxide BUN Creatinine Glucose POC Glucose (mg/dL) 183 H 184 H Calcium Total Bilirubin AST Creatine Kinase Total Protein Albumin Urine Appearance Urine Protein Urine Glucose (UA) Urine Ketones Urine Blood Ur Leukocyte Esterase Urine WBC Urine Bacteria Urine Mucus Urine Opiates Screen Coronavirus (PCR) Detected A 06/15/22 06/15/22 06/15/22 06:18 06:18 11:31 WBC RBC 3.60 L Hgb 11.1 L Plt Count 90 L Neutrophils # 8.3 H Lymphocytes # 0.3 L Chloride 115 H Carbon Dioxide 20 L BUN 38 H Creatinine 1.46 H Glucose 191 H POC Glucose (mg/dL) 229 H Calcium 7.8 L Total Bilirubin AST Creatine Kinase Total Protein Albumin Urine Appearance Urine Protein Urine Glucose (UA) Urine Ketones Urine Blood Ur Leukocyte Esterase Urine WBC Urine Bacteria Urine Mucus Urine Opiates Screen Coronavirus (PCR) - Diagnostic Findings Chest x-ray: image reviewed CT scan - chest: image reviewed Assessment and Plan Assessment: Acute hypoxemic respiratory failure secondary to acute COVID-19 pneumonia. Initially diagnosed 10 days ago. Recent discharge 06/11/2022 for COVID-19 infection Generalized weakness and fall and on the ground at home for 2 days prior to arrival Rhabdomyolysis with CK 831 Acute on chronic renal failure History of chronic kidney disease stage III Suspected urinary tract infection, culture pending Acute exacerbation of chronic systolic congestive heart failure with an ejection fraction of 30-35% Cardiomyopathy status post AICD placement History of mild intermittent chronic bronchial asthma History of obstructive sleep apnea maintained on BiPAP Lifelong nonsmoker History of anxiety/depression Hyperlipidemia Diabetes mellitus, type II Diabetic neuropathy History of kidney stones with previous sepsis Poor overall functional performance based on the above-mentioned multiple comorbidities Plan: The patient was seen and evaluated Chest x-ray, CAT scan, labs and medications reviewed Continue Symbicort, albuterol, Decadron Continue heparin for DVT prophylaxis Check a pro-calcitonin Continue Levaquin for now Titrate the FiO2 as tolerated Social work consult for discharge planning We will continue to follow and make further recommendations based on her clinical status I have personally seen and examined the patient, performed the documentation and the assessment and plan as written. Number of minutes spent on the visit: 20.
--- NOTE | 2022-06-15 13:06 | HP ---
HISTORY AND PHYSICAL HISTORY OF PRESENT ILLNESS: This is a 66-year-old white female. She was found on the ground at home. She fell out of bed. Apparently been on the floor for over a day. She had elevated CPK with on admission to 892. She is positive for COVID, she has history of back surgery, lumbar back pain, unable to move her back, bilateral neuropathy in her legs. She has diabetes, she has chronic kidney disease, she has COPD. When she fell, she was unable to get up. She is positive for COVID, we are going to keep her on blood thinners, do CAT scan of the chest. Treat her for chronic respiratory failure secondary to COVID and COPD. Workup [place], she can move her extremities due to back, positive rhabdomyolysis, ____. HOME MEDICINES: See list. REVIEW OF SYSTEMS: A 14-point review of systems is negative except for as mentioned above. ALLERGIES: Negative. PAST MEDICAL HISTORY: Asthma, diabetes mellitus, GERD, dyslipidemia, osteoarthritis, pneumonia, renal disease, sleep apnea, renal stones, chronic lumbar back pain, carpal tunnel syndrome, varicosities, and migraines. PAST SURGICAL HISTORY: AICD, appendectomy, back surgery, cardiac ablation, , cholecystectomy, and D and C. FAMILY HISTORY: Brother with stomach cancer, lung cancer. Sister with cancer of the stomach. Mother, cancer of the cervix. PHYSICAL EXAMINATION: VITAL SIGNS: Reviewed. She is saturating on 1-2 L in the 80s. She will go back to 2- 3 L on the nasal cannula at this time. Respiratory rate 20 to 25. Other vital signs reviewed. GENERAL: She was in moderate distress due to lumbar pain. RESPIRATORY: Decreased breath sounds, mild wheeze. HEART: S1, S2. EXTREMITIES: 2 to 3+ edema. SKIN: Warm, dry, intact. NEUROLOGIC: Cranial nerves intact. Blood pressure is 119 to 120s over 60s, O2 94 to 95, temp 98.8, pulse 90, respiratory rate 16 to 18. She has COVID-19 pneumonia, bilateral ground-glass opacities, leukocytosis, elevated BUN, creatinine, chronic kidney disease, rhabdomyolysis, dehydration, prerenal azotemia. Surgery to see for chronic traumatic fall. Continue to treat for COVID. Prognosis guarded. rehydrate, IV steroids, procalcitonin. Rule out infection from bacteria source. Prognosis guarded. MMODL / IJN: [id number] /
[2022-06-15] MEDS ORDERED: BUDESONIDE 1 MG/2 ML NEBU INHALATION SCH (20:00)
[2022-06-15 20:57] LABS: Glucose,Whole Blood 284 mg/dL (70-110)
--- NOTE | 2022-06-15 21:21 | P.CONS ---
History of Present Illness - Reason for Consult Consult date: 06/15/22 - History of Present Illness Patient is a 66-year-old female with multiple comorbidities including asthma diabetes hypertension hyperlipidemia she was recently admitted to this facility diagnosed and treated for COVID-19 patient chest x-ray CT did not show any acute infiltrate patient was not hypoxic treatment is mostly supportive the patient was discharged home patient apparently did have a fall at home and the patient was unable to get up after almost 2 days the patient was able to get to her phone call EMS and the patient was brought into the hospital patient denies any syncopal episode or head injury patient on presentation to the hospital was afebrile and no fever has been recorded subsequently patient was mildly hypoxic currently requiring 2 L nasal cannula oxygen satting 91% patient did have a el evated white count 14.2 on admission white count is normal as of this morning did have elevated BUN and creatinine AST was mildly elevated CK8 31 did have mildly positive UA urine to screen positive for opiates COVID testing was positive patient did have a CT of the chest abdominal pelvis present to shows multifocal groundglass opacities concerning for acute infectious process no acute intra-abdominal process patient has been admitted to the hospital infectious was consulted for further management started on Decadron and is on empiric Levaquin Past Medical History Past Medical History: Asthma, Diabetes Mellitus, GERD/Reflux, Hyperlipidemia, Musculoskeletal Disorder, Osteoarthritis (OA), Pneumonia, Renal Disease, Sleep Apnea/CPAP/BIPAP, Vascular Disorder Additional Past Medical History / Comment(s): neuropathy bilateral taylor ds/legs/feet, CKD stage III, hx kidney stones, anemia, UTI/septic due to lodged kidney stone, CARLOS with bipap, bronchitis, orthostatic hypotension with near syncope, vertigo, chronic low back pain/DDD, scoliosis, bilateral carpal tunnel syndrome, bilateral varicosities, migraines, SEE DR ALFORD H&P, gout, hx anemia(from nicked vein in left kidney after surgery for kidney stone), "embolism in my chest" History of Any Multi-Drug Resistant Organisms: None Reported Past Surgical History: AICD, Appendectomy, Back Surgery, Cardiac Ablation, Section, Cholecystectomy, Heart Catheterization, Hysterectomy, Joint Replacement, Orthopedic Surgery, Pacemaker Additional Past Surgical History / Comment(s): Rt knee arthroscopy, john total knee arthroplasty, pain clinic procedures, D&C, colonoscopy, bilateral leg varicose vein surgery, lithotripsies, surgical removal of stones, Myelogram([place]) 2019, Lumbar fusion L3-4, lumbar puncture for headaches 2019 (had spinal headache post), laminectomy, bakers cyst removed from rt knee, john cataracts, 02/12/21 back surgery with complications Past Anesthesia/Blood Transfusion Reactions: No Reported Reaction Additional Past Anesthesia/Blood Transfusion Reaction / Comm: Pt has received blood without reaction. Type of Cardiac Device: Permanent Pacemaker, AICD Device Placement Date:: 09/10/20 Past Psychological History: Anxiety, Depression Additional Psychological History / Comment(s): . Smoking Status: Never smoker Past Alcohol Use History: None Reported Additional Past Alcohol Use History / Comment(s): . Past Drug Use History: None Reported - Past Family History Father Family Medical History: Cancer Additional Family Medical History / Comment(s): Stomach cancer. Brother(s) Family Medical History: Cancer Additional Family Medical History / Comment(s): Lung cancer. Sister(s) Family Medical History: Cancer Additional Family Medical History / Comment(s): Sister had stomach/colon/part of pancreas cancers. Mother Family Medical History: Cancer Additional Family Medical History / Comment(s): Ovarian and cervical cancer. Medications and Allergies Home Medications Medication Instructions Recorded Confirmed Type Aspirin EC [Ecotrin Low Dose] 81 mg PO HS 11/02/18 06/14/22 History Montelukast [Singulair] 10 mg PO HS 11/02/18 06/14/22 History Atorvastatin [Lipitor] 20 mg PO HS 09/05/19 06/14/22 History Meclizine [Antivert] 12.5 mg PO Q8H 09/05/19 06/14/22 History Topiramate [Topamax] 50 mg PO HS 09/05/19 06/14/22 History carvediloL [Coreg] 6.25 mg PO BID 09/05/19 06/14/22 History calcitrioL [Rocaltrol] 0.25 mcg PO NORRIS 12/06/19 06/14/22 History Budesonide [Pulmicort Flexhaler] 2 puff INHALATION RT-BID 02/09/20 06/14/22 History Docusate [Colace] 100 mg PO DAILY 02/09/20 06/14/22 History Insulin Glargine,Hum.rec.anlog 36 unit SQ HS 02/09/20 06/14/22 History [Lantus Solostar Pen] Insulin Lispro [humaLOG Kwikpen] 10 unit SQ TID-W/MEALS 02/09/20 06/14/22 History Magnesium Oxide [Shaikh] 1,000 mg PO HS 02/09/20 06/14/22 History Albuterol Sulfate [Ventolin HFA] 2 puff INHALATION RT-QID PRN 04/20/20 06/14/22 History Azithromycin [Zithromax Z Pack] See Taper PO DIRECTED 06/09/22 06/14/22 History Benzonatate 100 mg PO TID 06/09/22 06/14/22 History Cyanocobalamin (Vitamin B-12) 1,000 mcg PO DAILY 06/09/22 06/14/22 History [Vitamin B-12] Dapagliflozin Propanediol [Farxiga] 5 mg PO DAILY 06/09/22 06/14/22 History Ergocalciferol [Vitamin D2 (1250 1,250 mcg PO QMONTHLY 06/09/22 06/14/22 History Mcg = 93768 Iu)] Ferrous Sulfate [Iron (65 MG 325 mg PO DAILY 06/09/22 06/14/22 History Elemental)] Furosemide [Lasix] 40 mg PO DAILY 06/09/22 06/14/22 History Gabapentin 600 mg PO QID 06/09/22 06/14/22 History HYDROcodone/APAP 10-325MG [[place] 1 tab PO QID 06/09/22 06/14/22 History 10-325] Levofloxacin [Levaquin] 250 mg PO DAILY 06/09/22 06/14/22 History Midodrine HCl [ProAmatine] 10 mg PO TID 06/09/22 06/14/22 History Protonix 40mg Susp Packet 40 mg PO DAILY 06/09/22 06/14/22 History Sertraline HCl [Zoloft] 50 mg PO DAILY 06/09/22 06/14/22 History allopurinoL 100 mg PO DAILY 06/09/22 06/14/22 History dexAMETHasone [Decadron] 6 mg PO DAILY 06/09/22 06/14/22 History lisinopriL [Zestril] 2.5 mg PO DAILY 06/09/22 06/14/22 History Budesonide-Formot 160-4.5 Mcg 2 puff INHALATION RT-BID 30 Days 06/11/22 06/14/22 Rx [Symbicort 160-4.5 Mcg Inhaler] #1 each Allergies Allergy/AdvReac Type Severity Reaction Status Date / Time No Known Allergies Allergy Verified 06/14/22 16:02 Physical Exam Vitals: Vital Signs Temp Pulse Pulse Resp BP BP Pulse Ox 06/15/22 07:40 98.0 F 90 16 123/69 87 L 06/15/22 02:00 98.2 F 90 101/63 93 L 06/14/22 20:00 99.5 F 90 16 132/69 92 L 06/14/22 19:11 88 18 122/64 95 06/14/22 18:17 92 16 123/65 94 L 06/14/22 16:00 94 18 122/60 95 Intake and Output 06/14/22 06/15/22 06/15/22 22:59 06:59 14:59 Intake Total 600 Balance 600 Intake: Intake, IV Titration 600 Amount Sodium Chloride 0.9% 1, 600 000 ml @ 100 mls/hr IV . Q10H STA Rx#:[id number] Other: Voiding Method External Catheter External Catheter # Voids 2 1 Weight 104.326 kg Results CBC & Chem 7: 06/15/22 06:18 06/15/22 06:18 Labs: Abnormal Lab Results - Last 24 Hours (Table) 06/14/22 06/14/22 06/14/22 Range/Units 14:44 14:44 14:44 WBC 14.2 H (3.8-10.6) k/uL RBC (3.80-5.40) m/uL Hgb (11.4-16.0) gm/dL Plt Count 102 L (150-450) k/uL Neutrophils # 13.2 H (1.3-7.7) k/uL Lymphocytes # 0.4 L (1.0-4.8) k/uL Chloride 114 H (98-107) mmol/L Carbon Dioxide 18 L (22-30) mmol/L BUN 43 H (7-17) mg/dL Creatinine 1.65 H (0.52-1.04) mg/dL Glucose 203 H (74-99) mg/dL POC Glucose (mg/dL) (70-110) mg/dL Calcium (8.4-10.2) mg/dL Total Bilirubin 1.4 H (0.2-1.3) mg/dL AST 48 H (14-36) U/L Creatine Kinase 831 H (30-135) U/L Total Protein 5.5 L (6.3-8.2) g/dL Albumin 3.2 L (3.5-5.0) g/dL Urine Appearance Cloudy H (Clear) Urine Protein 1+ H (Negative) Urine Glucose (UA) 4+ H (Negative) Urine Ketones 1+ H (Negative) Urine Blood Large H (Negative) Ur Leukocyte Esterase Moderate H (Negative) Urine WBC 6 H (0-5) /hpf Urine Bacteria Rare H (None) /hpf Urine Mucus Rare H (None) /hpf Urine Opiates Screen Detected H (NotDetected) Coronavirus (PCR) (Not Detectd) 06/14/22 06/14/22 06/15/22 Range/Units 18:18 20:44 06:10 WBC (3.8-10.6) k/uL RBC (3.80-5.40) m/uL Hgb (11.4-16.0) gm/dL Plt Count (150-450) k/uL Neutrophils # (1.3-7.7) k/uL Lymphocytes # (1.0-4.8) k/uL Chloride (98-107) mmol/L Carbon Dioxide (22-30) mmol/L BUN (7-17) mg/dL Creatinine (0.52-1.04) mg/dL Glucose (74-99) mg/dL POC Glucose (mg/dL) 183 H 184 H (70-110) mg/dL Calcium (8.4-10.2) mg/dL Total Bilirubin (0.2-1.3) mg/dL AST (14-36) U/L Creatine Kinase (30-135) U/L Total Protein (6.3-8.2) g/dL Albumin (3.5-5.0) g/dL Urine Appearance (Clear) Urine Protein (Negative) Urine Glucose (UA) (Negative) Urine Ketones (Negative) Urine Blood (Negative) Ur Leukocyte Esterase (Negative) Urine WBC (0-5) /hpf Urine Bacteria (None) /hpf Urine Mucus (None) /hpf Urine Opiates Screen (NotDetected) Coronavirus (PCR) Detected A (Not Detectd) 06/15/22 06/15/22 06/15/22 Range/Units 06:18 06:18 11:31 WBC (3.8-10.6) k/uL RBC 3.60 L (3.80-5.40) m/uL Hgb 11.1 L (11.4-16.0) gm/dL Plt Count 90 L (150-450) k/uL Neutrophils # 8.3 H (1.3-7.7) k/uL Lymphocytes # 0.3 L (1.0-4.8) k/uL Chloride 115 H (98-107) mmol/L Carbon Dioxide 20 L (22-30) mmol/L BUN 38 H (7-17) mg/dL Creatinine 1.46 H (0.52-1.04) mg/dL Glucose 191 H (74-99) mg/dL POC Glucose (mg/dL) 229 H (70-110) mg/dL Calcium 7.8 L (8.4-10.2) mg/dL Total Bilirubin (0.2-1.3) mg/dL AST (14-36) U/L Creatine Kinase (30-135) U/L Total Protein (6.3-8.2) g/dL Albumin (3.5-5.0) g/dL Urine Appearance (Clear) Urine Protein (Negative) Urine Glucose (UA) (Negative) Urine Ketones (Negative) Urine Blood (Negative) Ur Leukocyte Esterase (Negative) Urine WBC (0-5) /hpf Urine Bacteria (None) /hpf Urine Mucus (None) /hpf Urine Opiates Screen (NotDetected) Coronavirus (PCR) (Not Detectd) 06/15/22 Range/Units 12:14 WBC (3.8-10.6) k/uL RBC (3.80-5.40) m/uL Hgb (11.4-16.0) gm/dL Plt Count (150-450) k/uL Neutrophils # (1.3-7.7) k/uL Lymphocytes # (1.0-4.8) k/uL Chloride (98-107) mmol/L Carbon Dioxide (22-30) mmol/L BUN (7-17) mg/dL Creatinine (0.52-1.04) mg/dL Glucose (74-99) mg/dL POC Glucose (mg/dL) (70-110) mg/dL Calcium (8.4-10.2) mg/dL Total Bilirubin (0.2-1.3) mg/dL AST (14-36) U/L Creatine Kinase 355 H (30-135) U/L Total Protein (6.3-8.2) g/dL Albumin (3.5-5.0) g/dL Urine Appearance (Clear) Urine Protein (Negative) Urine Glucose (UA) (Negative) Urine Ketones (Negative) Urine Blood (Negative) Ur Leukocyte Esterase (Negative) Urine WBC (0-5) /hpf Urine Bacteria (None) /hpf Urine Mucus (None) /hpf Urine Opiates Screen (NotDetected) Coronavirus (PCR) (Not Detectd) Assessment and Plan Plan: 1patient presented to hospital with a weakness and did have a fall in this patient with recent diagnosis of COVID-19 about 10 days ago patient did not have any acute infiltrate on chest x-ray on the CT on her last visit however CT this admission is showing multifocal infiltrate suggestive of atypical pneumonia patient did have mild elevated white count however is not running any fever clinic suspicion is low for secondary bacterial pneumonia 2-mildly positive UA however no significant urinary symptoms 3-we will check inflammatory markers including CRP and a procalcitonin 4-patient to continue with the dexamethasone heparin we will add zinc and asc orbic acid No need for droplet isolation as initial diagnosis more than 10 years ago We will follow on clinical condition and cultures to further adjust medication if needed Thank you for this consultation we will follow the patient along with you Time with Patient: Greater than 30
[2022-06-15] MEDS: ASPIRIN 81 MG PO SCH (21:37)
[2022-06-15] MEDS: ATORVASTATIN 20 MG TAB PO SCH (21:38)
[2022-06-15] MEDS: MAGNESIUM OXIDE 400 MG TAB PO SCH (21:38)
[2022-06-15] MEDS: TOPIRAMATE 25 MG TAB PO SCH (21:39)
--- NOTE | 2022-06-15 22:45 | P.GSCN ---
History of Present Illness Consult date: 06/15/22 History of present illness: REASON FOR CONSULTATION: Status post fall HISTORY OF PRESENT ILLNESS: The patient is a 66 year old female recently discharged 3 days ago, 06/11/2022. She was at home where she came out of bed, she tripped and fell. Multiple diagnostic studies were obtained due to status post fall with trauma. She reports neuropathy. She reports diffuse back pain including abdominal pain prior to her fall. Trauma surgery is consulted due to mechanism of injury or fall. PAST MEDICAL HISTORY: See list and reviewed PAST SURGICAL HISTORY: See list and reviewed MEDICATIONS: See list and reviewed ALLERGIES: See list and reviewed SOCIAL HISTORY: See list and reviewed FAMILY HISTORY: See list and reviewed REVIEW OF ORGAN SYSTEMS: CONSTITUTIONAL: No fevers or chills. No recent weight loss. EYES: Denies any trouble with vision. No glasses. HEENT: No difficulties with hearing. No nosebleeds. No difficulty swallowing. RESPIRATORY: Chronic obstructive pulmonary disease. CARDIOVASCULAR: Has hypertensive heart disease. GASTROINTESTINAL: Has gastroesophageal reflux disease. Has iron deficiency. GENITOURINARY: Denies any blood in urine or increased urinary frequency. NEUROLOGICAL: Has numbness or tingling along the distal extremities. No seizure disorders or headaches. Has neuropathy MUSCULOSKELETAL: Has back pain, stiffness or joint arthritis. Has gout. SKIN: No current skin cancer. No rash. PSYCHIATRIC: Has depressive disorder. ENDOCRINE: Denies current thyroid disorders. Has insulin-dependent. Has diabetes type II. HEME/LYMPHATIC: Denies any lumps and bumps around the neck. No recent deep venous thrombosis. ALLERGY/IMMUNOLOGY: No immunoglobulin therapy. No immune deficiencies. BREAST: Denies current breast lumps, pain or nipple discharge. PHYSICAL EXAM: VITALS: Reviewed CONSTITUTIONAL: Well developed and in no acute distress. EYES: Conjuctivae without sclera icterus. Extraocular movements grossly intact. HEAD, EARS, NOSE, THROAT: Moist buccal mucosa. Head is atraumatic, normocephalic. Hears conversational speech. No nasal drainage. NECK: Supple. No JV distention. No thyroidomegaly. RESPIRATORY: Non-labored respirations and equal bilateral excursions. No gross wheezes. CARDIOVASCULAR: Palpable 2+ radial pulses. ABDOMEN: Obese. No peritonitis. LYMPH: No neck lymphadenopathy. MUSCULOSKELETAL: No clubbing cyanosis or edema. SKIN: Warm and well perfused with good skin turgor. NEUROLOGIC: Cranial nerves II through XII grossly intact. No focal or lateralizing signs. PSYCH: Appropriate affect. Alert and oriented to person, place and time. Displays appropriate insight. CLINCAL LABS: Reviewed. WBC normal. Hemoglobin low 11.1, anemia RADIOLOGY: Independently reviewed. CT of the abdomen and pelvis demonstrates no intra-abdominal process. Presence of atypical pneumonia. CT head spine demonstrates no fractures. RECORDS: previous old records reviewed demonstrate a recent COVID-19 infection 1-2 weeks, ago. ASSESSMENT: 1. Status post ground-level fall 2. Neuropathy 3. Diabetes type 2, insulin-dependent 4. Hypertensive heart disease 5. COVID-19 infection 6. Chronic obstructive pulmonary disease PLAN: 1. No acute surgical intervention. 2. Medical management for neuropathy and pneumonia. ADVANCE DIRECTIVE: Thank you for this kind consultation. Past Medical History Past Medical History: Asthma, Diabetes Mellitus, GERD/Reflux, Hyperlipidemia, Musculoskeletal Disorder, Osteoarthritis (OA), Pneumonia, Renal Disease, Sleep Apnea/CPAP/BIPAP, Vascular Disorder Additional Past Medical History / Comment(s): neuropathy bilateral hands/legs/feet, CKD stage III, hx kidney stones, anemia, UTI/septic due to lodged kidney stone, CARLOS with bipap, bronchitis, orthostatic hypotension with near syncope, vertigo, chronic low back pain/DDD, scoliosis, bilateral carpal tunnel syndrome, bilateral varicosities, migraines, SEE DR ALFORD H&P, gout, hx anemia(from nicked vein in left kidney after surgery for kidney stone), "embolism in my chest" History of Any Multi-Drug Resistant Organisms: None Reported Past Surgical History: AICD, Appendectomy, Back Surgery, Cardiac Ablation, Section, Cholecystectomy, Heart Catheterization, Hysterectomy, Joint Replacement, Orthopedic Surgery, Pacemaker Additional Past Surgical History / Comment(s): Rt knee arthroscopy, john total knee arthroplasty, pain clinic procedures, D&C, colonoscopy, bilateral leg varicose vein surgery, lithotripsies, surgical removal of stones, Myelogram([place]) 2018, Lumbar fusion L3-4, lumbar puncture for headaches 2019 (had spinal headache post), laminectomy, bakers cyst removed from rt knee, john cataracts, 02/12/21 back surgery with complications Past Anesthesia/Blood Transfusion Reactions: No Reported Reaction Additional Past Anesthesia/Blood Transfusion Reaction / Comm: Pt has received blood without reaction. Type of Cardiac Device: Permanent Pacemaker, AICD Device Placement Date:: 09/10/20 Past Psychological History: Anxiety, Depression Additional Psychological History / Comment(s): . Smoking Status: Never smoker Past Alcohol Use History: None Reported Additional Past Alcohol Use History / Comment(s): . Past Drug Use History: None Reported - Past Family History Father Family Medical History: Cancer Additional Family Medical History / Comment(s): Stomach cancer. Brother(s) Family Medical History: Cancer Additional Family Medical History / Comment(s): Lung cancer. Sister(s) Family Medical History: Cancer Additional Family Medical History / Comment(s): Sister had stomach/colon/part of pancreas cancers. Mother Family Medical History: Cancer Additional Family Medical History / Comment(s): Ovarian and cervical cancer. Medications and Allergies Home Medications Medication Instructions Recorded Confirmed Type Aspirin EC [Ecotrin Low Dose] 81 mg PO HS 11/02/18 06/14/22 History Montelukast [Singulair] 10 mg PO HS 11/02/18 06/14/22 History Atorvastatin [Lipitor] 20 mg PO HS 09/05/19 06/14/22 History Meclizine [Antivert] 12.5 mg PO Q8H 09/05/19 06/14/22 History Topiramate [Topamax] 50 mg PO HS 09/05/19 06/14/22 History carvediloL [Coreg] 6.25 mg PO BID 09/05/19 06/14/22 History calcitrioL [Rocaltrol] 0.25 mcg PO NORRIS 12/06/19 06/14/22 History Budesonide [Pulmicort Flexhaler] 2 puff INHALATION RT-BID 02/09/20 06/14/22 History Docusate [Colace] 100 mg PO DAILY 02/09/20 06/14/22 History Insulin Glargine,Hum.rec.anlog 36 unit SQ HS 02/09/20 06/14/22 History [Lantus Solostar Pen] Insulin Lispro [humaLOG Kwikpen] 10 unit SQ TID-W/MEALS 02/09/20 06/14/22 History Magnesium Oxide [Shaikh] 1,000 mg PO HS 02/09/20 06/14/22 History Albuterol Sulfate [Ventolin HFA] 2 puff INHALATION RT-QID PRN 04/20/20 06/14/22 History Azithromycin [Zithromax Z Pack] See Taper PO DIRECTED 06/09/22 06/14/22 History Benzonatate 100 mg PO TID 06/09/22 06/14/22 History Cyanocobalamin (Vitamin B-12) 1,000 mcg PO DAILY 06/09/22 06/14/22 History [Vitamin B-12] Dapagliflozin Propanediol [Farxiga] 5 mg PO DAILY 06/09/22 06/14/22 History Ergocalciferol [Vitamin D2 (1250 1,250 mcg PO QMONTHLY 06/09/22 06/14/22 History Mcg = 15332 Iu)] Ferrous Sulfate [Iron (65 MG 325 mg PO DAILY 06/09/22 06/14/22 History Elemental)] Furosemide [Lasix] 40 mg PO DAILY 06/09/22 06/14/22 History Gabapentin 600 mg PO QID 06/09/22 06/14/22 History HYDROcodone/APAP 10-325MG [[place] 1 tab PO QID 06/09/22 06/14/22 History 10-325] Levofloxacin [Levaquin] 250 mg PO DAILY 06/09/22 06/14/22 History Midodrine HCl [ProAmatine] 10 mg PO TID 06/09/22 06/14/22 History Protonix 40mg Susp Packet 40 mg PO DAILY 06/09/22 06/14/22 History Sertraline HCl [Zoloft] 50 mg PO DAILY 06/09/22 06/14/22 History allopurinoL 100 mg PO DAILY 06/09/22 06/14/22 History dexAMETHasone [Decadron] 6 mg PO DAILY 06/09/22 06/14/22 History lisinopriL [Zestril] 2.5 mg PO DAILY 06/09/22 06/14/22 History Budesonide-Formot 160-4.5 Mcg 2 puff INHALATION RT-BID 30 Days 06/11/22 06/14/22 Rx [Symbicort 160-4.5 Mcg Inhaler] #1 each Allergies Allergy/AdvReac Type Severity Reaction Status Date / Time No Known Allergies Allergy Verified 06/14/22 16:02 Surgical - Exam Vital Signs Temp Pulse Resp BP Pulse Ox 98.8 F 90 16 119/61 94 L 06/14/22 13:30 06/14/22 13:30 06/14/22 13:30 06/14/22 13:30 06/14/22 13:30 Results - Labs 06/15/22 06:18 06/15/22 06:18 Abnormal Lab Results - Last 24 Hours (Table) 06/15/22 06/15/22 06/15/22 Range/Units 06:10 06:18 06:18 RBC 3.60 L (3.80-5.40) m/uL Hgb 11.1 L (11.4-16.0) gm/dL Plt Count 90 L (150-450) k/uL Neutrophils # 8.3 H (1.3-7.7) k/uL Lymphocytes # 0.3 L (1.0-4.8) k/uL Chloride (98-107) mmol/L Carbon Dioxide (22-30) mmol/L BUN (7-17) mg/dL Creatinine (0.52-1.04) mg/dL Glucose (74-99) mg/dL POC Glucose (mg/dL) 184 H (70-110) mg/dL Hemoglobin A1c 7.5 H (0.0-6.0) % Calcium (8.4-10.2) mg/dL Creatine Kinase (30-135) U/L 06/15/22 06/15/22 06/15/22 Range/Units 06:18 11:31 12:14 RBC (3.80-5.40) m/uL Hgb (11.4-16.0) gm/dL Plt Count (150-450) k/uL Neutrophils # (1.3-7.7) k/uL Lymphocytes # (1.0-4.8) k/uL Chloride 115 H (98-107) mmol/L Carbon Dioxide 20 L (22-30) mmol/L BUN 38 H (7-17) mg/dL Creatinine 1.46 H (0.52-1.04) mg/dL Glucose 191 H (74-99) mg/dL POC Glucose (mg/dL) 229 H (70-110) mg/dL Hemoglobin A1c (0.0-6.0) % Calcium 7.8 L (8.4-10.2) mg/dL Creatine Kinase 355 H (30-135) U/L 06/15/22 Range/Units 20:55 RBC (3.80-5.40) m/uL Hgb (11.4-16.0) gm/dL Plt Count (150-450) k/uL Neutrophils # (1.3-7.7) k/uL Lymphocytes # (1.0-4.8) k/uL Chloride (98-107) mmol/L Carbon Dioxide (22-30) mmol/L BUN (7-17) mg/dL Creatinine (0.52-1.04) mg/dL Glucose (74-99) mg/dL POC Glucose (mg/dL) 284 H (70-110) mg/dL Hemoglobin A1c (0.0-6.0) % Calcium (8.4-10.2) mg/dL Creatine Kinase (30-135) U/L Diabetes panel 06/15/22 06/15/22 Range/Units 06:18 06:18 Sodium 143 (137-145) mmol/L Potassium 4.7 (3.5-5.1) mmol/L Chloride 115 H (98-107) mmol/L Carbon Dioxide 20 L (22-30) mmol/L BUN 38 H (7-17) mg/dL Creatinine 1.46 H (0.52-1.04) mg/dL Glucose 191 H (74-99) mg/dL Hemoglobin A1c 7.5 H (0.0-6.0) % Calcium 7.8 L (8.4-10.2) mg/dL Calcium panel 06/15/22 Range/Units 06:18 Calcium 7.8 L (8.4-10.2) mg/dL Pituitary panel 06/15/22 Range/Units 06:18 Sodium 143 (137-145) mmol/L Potassium 4.7 (3.5-5.1) mmol/L Chloride 115 H (98-107) mmol/L Carbon Dioxide 20 L (22-30) mmol/L BUN 38 H (7-17) mg/dL Creatinine 1.46 H (0.52-1.04) mg/dL Glucose 191 H (74-99) mg/dL Calcium 7.8 L (8.4-10.2) mg/dL Adrenal panel 06/15/22 Range/Units 06:18 Sodium 143 (137-145) mmol/L Potassium 4.7 (3.5-5.1) mmol/L Chloride 115 H (98-107) mmol/L Carbon Dioxide 20 L (22-30) mmol/L BUN 38 H (7-17) mg/dL Creatinine 1.46 H (0.52-1.04) mg/dL Glucose 191 H (74-99) mg/dL Calcium 7.8 L (8.4-10.2) mg/dL
[2022-06-16] MEDS: MECLIZINE 12.5 MG TAB PO SCH ×3 (03:32→16:57)
[2022-06-16 06:10] LABS: Glucose,Whole Blood 223 mg/dL (70-110)
[2022-06-16] MEDS: INSULIN ASPART (NovoLOG) 100 UNIT/ML VIAL SQ SCH ×3 (06:44→16:58)
[2022-06-16] MEDS: PANTOPRAZOLE 40 MG TABLET PO SCH (08:08)
[2022-06-16] MEDS: HEPARIN SODIUM,PORCINE/PF 5,000 UNIT/0.5 ML SYRINGE SQ SCH ×3 (08:08→21:42)
[2022-06-16] MEDS: FUROSEMIDE 40 MG TAB PO SCH (08:08)
[2022-06-16] MEDS: ZINC SULFATE 220 MG CAP PO SCH (08:08)
[2022-06-16] MEDS: FERROUS SULFATE 325 MG TAB PO SCH (08:08)
[2022-06-16] MEDS: ASCORBIC ACID 500 MG TAB PO SCH (08:08)
[2022-06-16] MEDS: MIDODRINE 5 MG TAB PO SCH ×3 (08:09→21:43)
[2022-06-16] MEDS: GABAPENTIN 300 MG CAP PO SCH ×4 (08:09→21:43)
[2022-06-16] MEDS: CYANOCOBALAMIN 500 MCG TAB PO SCH (08:09)
[2022-06-16] MEDS: DOCUSATE 100 MG CAP PO SCH (08:09)
[2022-06-16] MEDS: DEXAMETHASONE SOD PHOSPHATE 10 MG/ML 1 ML VIAL IVP SCH (08:09)
[2022-06-16] MEDS: BENZONATATE 100 MG CAP PO SCH ×3 (08:09→21:43)
[2022-06-16] MEDS: SERTRALINE 50 MG TAB PO SCH (08:09)
[2022-06-16] MEDS: HYDROcodone/APAP 10-325MG 1 EACH TAB PO SCH ×4 (08:10→21:42)
[2022-06-16] MEDS: DAPAGLIFLOZIN PROPANEDIOL 5 MG TABLET PO SCH (08:11)
[2022-06-16] MEDS: LEVOFLOXACIN 250 MG TAB PO SCH (08:11)
[2022-06-16] MEDS: allopurinoL 100 MG TAB PO SCH (08:12)
[2022-06-16] MEDS: carvediloL 6.25 MG TAB PO SCH ×2 (08:18→21:43)
[2022-06-16] MEDS: SYMBICORT 160-4.5 MCG INHALER INHALATION SCH ×2 (09:36→21:29)
--- NOTE | 2022-06-16 09:37 | P.CNOR ---
History of Present Illness - HPI Consult date: 06/16/22 Requesting physician: Vishal Snell Consult reason: other (Left leg weakness) History of present illness: History of Presenting Illness Patient is a pleasant 66-year-old female who presented to the ER via EMS on 06/14/2022 due to a fall. Patient states she does live alone and is normally independent with walker. Patient was recently admitted on 06/09/2022 with Covid and HALLE. Patient was discharged on 06/11/22 and states she felt she was doing good. The night of 06/12/22, patient reports being incontinent of stool and was getting out of bed to make her way to the bathroom and fell out of bed. She was unable to get herself back up and reports crawling around her house until she made her way to her phone that was under her pillow to call for EMS to bring her into the hospital. Patient has complaint of lower back pain and bilateral lower extremity radiculopathy with slight numbness to the left lower extremity, which is chronic. Patient is know to our services, Dr. Meeks performed a revision [id number] fusion with T12-S1 decompression on 11/14/2020. Patient was recently seen in office 05/19/2022 for a recheck of her lower back. Patient was doing well at this time, ambulating independently with walker. She was to follow up on a as- needed basis. Patient seen and examined this morning. She is resting comfortably in bed. shift foreman RN states that patient was ambulatory, standby assist with walker to the restroom, she reported that patient was up frequently to urinate, PureWick was placed to maintain comfort and allow patient to rest. During exam patient is able to reposition herself in bed. Patient does demonstrate bilateral lower extremity weakness. She does have some abrasions to the lateral left lower extre mity from crawling around on the floor. Pateint does report some low back pain, which she states is controlled on current regimen. Encouraged patient to work with PT/OT today. Review of Systems Pertinent positives and negatives as discussed in HPI, a complete review of systems was performed and all other systems are negative. Physical Examination General: The patient is awake and alert, in no acute distress Skin: Skin is warm and dry with no obvious rashes or lesions. Eye: Pupils are equal, round and reactive to light, extra-ocular movements are intact; there is normal conjunctiva bilaterally. Neck: The neck is supple, there is no tenderness and ROM intact. Cardiovascular: There is a regular rate and rhythm. No murmur, rub or gallop is appreciated. Respiratory: Lungs are clear to auscultation, respirations are non-labored, breath sounds are equal. Gastrointestinal: Soft, non-distended, non-tender abdomen. Back: There is no tenderness to palpation in the midline, paralumbar, parathor acic or buttocks region. There is no obvious deformity. Musculoskeletal: ROM limited secondary to pain and stiffness. Shoulder abduction 5/5, elbow flexors 5/5, wrist dorsiflexors 5/5. finger abductor 5/5, hydrogeology professor 5/5, hip flexor 5/5, knee flexor 5/5, ankle dorsiflexor 4-/5, ankle plantarflexion 4- /5 and extensor hallucis 4-/5. Neurological: CN 2-12 intact. There are no obvious motor or sensory deficits. Movement and coordination equal and intact. Sensory exam to light touch intact C5-T1 and intact from L2-S1. Reflexes 2/4 in bilateral upper and lower extremities. Negative Hoffmans, babinski, and clonus signs. Psychiatric: Cooperative, appropriate mood & affect, normal judgment. Assessment and Plan Fall Low back pain Bilateral lower extremity weakness Bilateral lower extremity radiculopathy h/o Revision L2-Pelvis fusion with T12-S1 decompression Multiple comorbidities At this time we do not recommend any emergent/urgent orthopedic surgical intervention. Patient may follow-up with Dr. Meeks office for further evaluation as needed. Orthopedics is signing off at this time. Please do not hesitate to contact us for any further questions. 2. Appreciate medical management 3. Pain management -Continue with current regimen and IV steroids 4. GI prophylaxis - Mag Ox, Protonix 5. DVT prophylaxis - Heparin 6. PT/OT - weightbearing as tolerated with a walker. Patient may benefit from GABRIEL. 7. Appreciate consult I reviewed and discussed this case with my attending Dr. Meeks, whom has reviewed this chart and films and is in agreement with assessment and plan of care as outlined above. I have personally seen and examined the patient, performed the documentation and the assessment and plan as written. Number of minutes spent on the visit: 20m Past Medical History Past Medical History: Asthma, Diabetes Mellitus, GERD/Reflux, Hyperlipidemia, Musculoskeletal Disorder, Osteoarthritis (OA), Pneumonia, Renal Disease, Sleep Apnea/CPAP/BIPAP, Vascular Disorder Additional Past Medical History / Comment(s): neuropathy bilateral hands/legs/feet, CKD stage III, hx kidney stones, anemia, UTI/septic due to lodged kidney stone, CARLOS with bipap, bronchitis, orthostatic hypotension with near syncope, vertigo, chronic low back pain/DDD, scoliosis, bilateral carpal tunnel syndrome, bilateral varicosities, migraines, SEE DR ALFORD H&P, gout, hx anemia(from nicked vein in left kidney after surgery for kidney stone), "embolism in my chest" History of Any Multi-Drug Resistant Organisms: None Reported Past Surgical History: AICD, Appendectomy, Back Surgery, Cardiac Ablation, Section, Cholecystectomy, Heart Catheterization, Hysterectomy, Joint Replacement, Orthopedic Surgery, Pacemaker Additional Past Surgical History / Comment(s): Rt knee arthroscopy, john total knee arthroplasty, pain clinic procedures, D&C, colonoscopy, bilateral leg varicose vein surgery, lithotripsies, surgical removal of stones, Myelogram(Norberto) 2018, Lumbar fusion L3-4, lumbar puncture for headaches 2019 (had spinal headache post), laminectomy, bakers cyst removed from rt knee, john cataracts, 02/12/21 back surgery with complications Past Anesthesia/Blood Transfusion Reactions: No Reported Reaction Additional Past Anesthesia/Blood Transfusion Reaction / Comm: Pt has received blood without reaction. Type of Cardiac Device: Permanent Pacemaker, AICD Device Placement Date:: 09/10/20 Past Psychological History: Anxiety, Depression Additional Psychological History / Comment(s): . Smoking Status: Never smoker Past Alcohol Use History: None Reported Additional Past Alcohol Use History / Comment(s): . Past Drug Use History: None Reported - Past Family History Father Family Medical History: Cancer Additional Family Medical History / Comment(s): Stomach cancer. Brother(s) Family Medical History: Cancer Additional Family Medical History / Comment(s): Lung cancer. Sister(s) Family Medical History: Cancer Additional Family Medical History / Comment(s): Sister had stomach/colon/part of pancreas cancers. Mother Family Medical History: Cancer Additional Family Medical History / Comment(s): Ovarian and cervical cancer. Medications and Allergies Home Medications Medication Instructions Recorded Confirmed Type Aspirin EC [Ecotrin Low Dose] 81 mg PO HS 11/02/18 06/14/22 History Montelukast [Singulair] 10 mg PO HS 11/02/18 06/14/22 History Atorvastatin [Lipitor] 20 mg PO HS 09/05/19 06/14/22 History Meclizine [Antivert] 12.5 mg PO Q8H 09/05/19 06/14/22 History Topiramate [Topamax] 50 mg PO HS 09/05/19 06/14/22 History carvediloL [Coreg] 6.25 mg PO BID 09/05/19 06/14/22 History calcitrioL [Rocaltrol] 0.25 mcg PO NORRIS 12/06/19 06/14/22 History Budesonide [Pulmicort Flexhaler] 2 puff INHALATION RT-BID 02/09/20 06/14/22 History Docusate [Colace] 100 mg PO DAILY 02/09/20 06/14/22 History Insulin Glargine,Hum.rec.anlog 36 unit SQ HS 02/09/20 06/14/22 History [Lantus Solostar Pen] Insulin Lispro [humaLOG Kwikpen] 10 unit SQ TID-W/MEALS 02/09/20 06/14/22 History Magnesium Oxide [Shaikh] 1,000 mg PO HS 02/09/20 06/14/22 History Albuterol Sulfate [Ventolin HFA] 2 puff INHALATION RT-QID PRN 04/20/20 06/14/22 History Azithromycin [Zithromax Z Pack] See Taper PO DIRECTED 06/09/22 06/14/22 History Benzonatate 100 mg PO TID 06/09/22 06/14/22 History Cyanocobalamin (Vitamin B-12) 1,000 mcg PO DAILY 06/09/22 06/14/22 History [Vitamin B-12] Dapagliflozin Propanediol [Farxiga] 5 mg PO DAILY 06/09/22 06/14/22 History Ergocalciferol [Vitamin D2 (1250 1,250 mcg PO QMONTHLY 06/09/22 06/14/22 History Mcg = 42085 Iu)] Ferrous Sulfate [Iron (65 MG 325 mg PO DAILY 06/09/22 06/14/22 History Elemental)] Furosemide [Lasix] 40 mg PO DAILY 06/09/22 06/14/22 History Gabapentin 600 mg PO QID 06/09/22 06/14/22 History HYDROcodone/APAP 10-325MG [Pratt 1 tab PO QID 06/09/22 06/14/22 History 10-325] Levofloxacin [Levaquin] 250 mg PO DAILY 06/09/22 06/14/22 History Midodrine HCl [ProAmatine] 10 mg PO TID 06/09/22 06/14/22 History Protonix 40mg Susp Packet 40 mg PO DAILY 06/09/22 06/14/22 History Sertraline HCl [Zoloft] 50 mg PO DAILY 06/09/22 06/14/22 History allopurinoL 100 mg PO DAILY 06/09/22 06/14/22 History dexAMETHasone [Decadron] 6 mg PO DAILY 06/09/22 06/14/22 History lisinopriL [Zestril] 2.5 mg PO DAILY 06/09/22 06/14/22 History Budesonide-Formot 160-4.5 Mcg 2 puff INHALATION RT-BID 30 Days 06/11/22 06/14/22 Rx [Symbicort 160-4.5 Mcg Inhaler] #1 each Allergies Allergy/AdvReac Type Severity Reaction Status Date / Time No Known Allergies Allergy Verified 06/14/22 16:02 Results - Labs Labs: Abnormal Lab Results - Last 24 Hours (Table) 06/15/22 06/15/22 06/15/22 Range/Units 06:18 06:18 06:18 RBC 3.60 L (3.80-5.40) m/uL Hgb 11.1 L (11.4-16.0) gm/dL Plt Count 90 L (150-450) k/uL Neutrophils # 8.3 H (1.3-7.7) k/uL Lymphocytes # 0.3 L (1.0-4.8) k/uL D-Dimer (<0.60) mg/L FEU Chloride 115 H (98-107) mmol/L Carbon Dioxide 20 L (22-30) mmol/L BUN 38 H (7-17) mg/dL Creatinine 1.46 H (0.52-1.04) mg/dL Glucose 191 H (74-99) mg/dL POC Glucose (mg/dL) (70-110) mg/dL Hemoglobin A1c 7.5 H (0.0-6.0) % Calcium 7.8 L (8.4-10.2) mg/dL Creatine Kinase (30-135) U/L Procalcitonin (0.02-0.09) ng/mL 06/15/22 06/15/22 06/15/22 Range/Units 06:18 11:31 12:14 RBC (3.80-5.40) m/uL Hgb (11.4-16.0) gm/dL Plt Count (150-450) k/uL Neutrophils # (1.3-7.7) k/uL Lymphocytes # (1.0-4.8) k/uL D-Dimer (<0.60) mg/L FEU Chloride (98-107) mmol/L Carbon Dioxide (22-30) mmol/L BUN (7-17) mg/dL Creatinine (0.52-1.04) mg/dL Glucose (74-99) mg/dL POC Glucose (mg/dL) 229 H (70-110) mg/dL Hemoglobin A1c (0.0-6.0) % Calcium (8.4-10.2) mg/dL Creatine Kinase 355 H (30-135) U/L Procalcitonin 7.77 H (0.02-0.09) ng/mL 06/15/22 06/16/22 06/16/22 Range/Units 20:55 06:06 06:08 RBC (3.80-5.40) m/uL Hgb (11.4-16.0) gm/dL Plt Count (150-450) k/uL Neutrophils # (1.3-7.7) k/uL Lymphocytes # (1.0-4.8) k/uL D-Dimer 2.83 H (<0.60) mg/L FEU Chloride (98-107) mmol/L Carbon Dioxide (22-30) mmol/L BUN (7-17) mg/dL Creatinine (0.52-1.04) mg/dL Glucose (74-99) mg/dL POC Glucose (mg/dL) 284 H 223 H (70-110) mg/dL Hemoglobin A1c (0.0-6.0) % Calcium (8.4-10.2) mg/dL Creatine Kinase (30-135) U/L Procalcitonin (0.02-0.09) ng/mL H & H 06/14/22 06/15/22 Range/Units 14:44 06:18 Hgb 12.8 11.1 L (11.4-16.0) gm/dL Hct 39.5 34.6 (34.0-46.0) % Coagulation 06/14/22 Range/Units 14:44 INR 1.0 (<1.2) Result Diagrams: 06/15/22 06:18 06/15/22 06:18
[2022-06-16 11:27] LABS: Glucose,Whole Blood 274 mg/dL (70-110)
[2022-06-16 11:48] LABS: Basophils # (A) 0.01 X 10*3/uL (0.00-0.10); Basophils % (A) 0.1 %; Eosinophils # (A) 0 X 10*3/uL (0.04-0.35); Eosinophils % (A) 0 %; HCT 35.6 % (37.2-46.3); HGB 10.8 g/dL (12.0-15.0); Immature Grans, Automated 0.6 %; Lymphocytes # (A) 0.33 X 10*3/uL (0.90-5.00); Lymphocytes % (A) 2.9 %; MCH 30.2 pg (27.0-32.0); MCHC 30.3 g/dL (32.0-37.0); MCV 99.4 fL (80.0-97.0); Monocytes # (A) 0.45 X 10*3/uL (0.20-1.00); Monocytes % (A) 3.9 %; NRBC Per 100 WBC 0 /100 WBCS (0.0-0.0); Neutrophils # (A) 10.62 X 10*3/uL (1.80-7.70); Neutrophils % (A) 92.5 %; Platelet Count 112 X 10*3/uL (140-440); RBC 3.58 X 10*6/uL (4.10-5.20); RDW 15.4 % (11.5-14.5); WBC 11.48 X 10*3/uL (4.50-10.00)
[2022-06-16 12:06] LABS: African American GFR (CKD) 41.7 (60.0-200.0); Albumin 2.9 g/dL (3.8-4.9); Albumin/Globulin Ratio 1.67 (1.60-3.17); Anion Gap 10.4 mmol/L (10.00-18.00); BUN/Creat Ratio 32.21 Ratio (12.00-20.00); C Reactive Protein 18.3 mg/dL (0.00-0.80); Calcium 8.5 mg/dL (8.7-10.3); Carbon Dioxide 21.7 mmol/L (20.0-27.5); Globulin 1.7 g/dL (1.6-3.3); Potassium 4.6 mmol/L (3.5-5.5); Total Bilirubin 0.5 mg/dL (0.30-1.20); Total Protein 4.6 g/dL (6.2-8.2)
--- NOTE | 2022-06-16 12:12 | P.PN ---
Subjective Progress Note Date: 06/16/22 Principal diagnosis: Pneumonia. This is a 66-year-old female patient with a history of mild intermittent chronic bronchial asthma, diabetes mellitus type 2, hyperlipidemia, obstructive sleep apnea maintained on BiPAP, cardiomyopathy status post AICD placement, anxiety/depression, chronic kidney disease stage III, bilateral neuropathy of the lower extremities. Lifelong nonsmoker. No home oxygen. She was recently discharged from here on 06/09/2022 after being admitted for CoVID 19 infection treated with Decadron and multivitamin and discharged on 06/11/2022. The patient states on June 12 she fell at home and was unable to get herself up or call for help. She denied any loss of consciousness. Denied any injury. She was down for 2 days before she was able to get to phone and call EMS. Seen here in the emergency room on 06/14/2022. X-ray of the pelvis revealed no evidence of fracture. Computed tomography scan of the chest abdomen pelvis revealed multifocal groundglass airspace opacities within the lungs concerning for acute infectious process such as atypical pneumonia. No acute intra-abdominal process. Extensive postsurgical changes to the lumbar spine. Computed tomography scan of the head and neck revealed no acute intracranial processes. No evidence of cervical spine fracture. Groundglass opacities seen again. Multi-level degenerative disc disease noted. ET scan of the lumbar spine revealed extensive postsurgical changes. Multilevel degenerative changes. No acute fractures. Of note, computed tomography scan of the chest dated 3 did not reveal any evidence of groundglass opacities. She was maintaining O2 saturations in the low 90s on 2 L/m per nasal cannula. Afebrile. Hemodynamically stable. White count 8.8. Hemoglobin 11.1. Platelet count 90,000. Sodium 143. Potassium 4.7. Bicarb 20. BUN 38. Creatinine 1.46. Glucose 191. CK level 831. ProBNP 2050. Troponin negative 1. Urinalysis cloudy with 4+ glucose large amount of blood. Moderate leukocytes. High white count. Urine drug screen positive for opiates. Lima virus by PCR positive. She is seen today in consultation on the regular medical floor. She is currently resting fairly comfortably in bed. Awake and alert in no acute distress. She is a dry nonproductive cough. No fever or chills. No hemoptysis. She has been initiated on Decadron, vitamin supplements, Symbicort and albuterol. Progress note dated 06/16/2022. 66-year-old female seen in consultation yesterday. Please see the note above. She seen today in room 458. The patient states that she's feeling a bit better today. She is getting oxygen at 3 L by nasal cannula. The patient is not receiving any IV fluids. She does feel weak and fatigued. She has minimal cough. She's not coughing up any phlegm. No new laboratory data today other than a d-dimer of 2.83 glucose of 274. Chest x-ray from yesterday shows diffuse bilateral infiltrates. Objective - Vital Signs Vital signs: Vital Signs Temp 97.7 F 06/16/22 07:25 Pulse 70 06/16/22 08:14 Resp 19 06/16/22 08:14 BP 101/56 06/16/22 07:25 Pulse Ox 92 L 06/16/22 10:45 FiO2 Intake & Output 06/15/22 06/16/22 06/16/22 18:59 06:59 18:59 Output Total 375 180 Balance -375 -180 Output: Urine 375 180 Other: Voiding Method External Catheter External Catheter External Catheter # Voids 1 - Exam No acute distress, oriented 3. Currently on 3 L of oxygen. HEENT examination is grossly unremarkable. Mucous membranes are moist. No oral lesions. Neck supple. Full range of motion. No adenopathy thyromegaly or neck vein distention. Cardiovascular examination reveals regular rhythm rate. S1-S2 normal. No S3 or S4. No discernible murmur noted. Heart sounds are distant. Heart rate 70 bpm. Lungs reveal scattered bilateral rhonchi. Breath sounds equal. No wheezes. Saturations are in the low 90s. Abdomen is obese. Bowel sounds are noted. No masses or tenderness. Extremities are intact. No cyanosis clubbing or edema. Skin is without rash or lesion. Neurologic examination is brief but nonfocal. - Labs CBC & Chem 7: 06/15/22 06:18 06/15/22 06:18 Labs: Abnormal Lab Results - Last 24 Hours (Table) 06/15/22 06/15/22 06/15/22 Range/Units 06:18 06:18 11:31 D-Dimer (<0.60) mg/L FEU POC Glucose (mg/dL) 229 H (70-110) mg/dL Hemoglobin A1c 7.5 H (0.0-6.0) % Creatine Kinase (30-135) U/L Procalcitonin 7.77 H (0.02-0.09) ng/mL 06/15/22 06/15/22 06/16/22 Range/Units 12:14 20:55 06:06 D-Dimer 2.83 H (<0.60) mg/L FEU POC Glucose (mg/dL) 284 H (70-110) mg/dL Hemoglobin A1c (0.0-6.0) % Creatine Kinase 355 H (30-135) U/L Procalcitonin (0.02-0.09) ng/mL 06/16/22 06/16/22 Range/Units 06:08 11:26 D-Dimer (<0.60) mg/L FEU POC Glucose (mg/dL) 223 H 274 H (70-110) mg/dL Hemoglobin A1c (0.0-6.0) % Creatine Kinase (30-135) U/L Procalcitonin (0.02-0.09) ng/mL Assessment and Plan Assessment: Acute hypoxemic respiratory failure secondary to acute COVID-19 pneumonia. Recent discharge 06/11/2022 for COVID-19 infection. Generalized weakness and fall and on the ground at home for 2 days prior to arrival. Rhabdomyolysis with CK 831. Acute on chronic renal failure. History of chronic kidney disease stage III. Suspected urinary tract infection, culture pending. Acute exacerbation of chronic systolic congestive heart failure with an ejection fraction of 30-35%. Cardiomyopathy status post AICD placement. History of mild intermittent chronic bronchial asthma. History of obstructive sleep apnea maintained on BiPAP. Lifelong nonsmoker. History of anxiety/depression. Hyperlipidemia. Diabetes mellitus, type II. Diabetic neuropathy. History of kidney stones with previous sepsis. Poor overall functional performance based on the above-mentioned multiple comorbidities. Plan: Plan dated 06/16/2022. The patient is seen and examined in room 458. She appears be reasonably stable. She is on 3 L of oxygen. She's not receiving any IV fluids. Labs, x-rays, medications are reviewed. We will continue to follow this patient make recommendations along the way. Prognosis is guarded. Time with Patient: Less than 30
--- NOTE | 2022-06-16 12:38 | P.PN ---
Subjective Progress Note Date: 06/16/22 CHIEF COMPLAINT: Fall HISTORY OF PRESENT ILLNESS: The patient is a 66-year-old female resented after falling out of the bed. She reported diffuse back abdominal pain. Multiple studies were unremarkable for acute injury. Patient has known chronic back pain and neuropathy in her leg. She's had prior surgery to her back. Patient reports that the pain medication is helping with her lower back pain. She is being seen by orthopedic service. They recommended work with PT OT and anticipate subacute rehab at discharge. No surgical intervention planned. Patient denies any new pain. She denies any abdominal pain. Afebrile. WBC 11.48 she is on dexamethasone. PHYSICAL EXAM: VITAL SIGNS: Reviewed GENERAL: Well-developed in no acute distress. HEENT: No sclera icterus. Extraocular movements grossly intact. Moist buccal mucosa. Head is atraumatic, normocephalic. Hears conversational speech. No nasal drainage. NECK: Supple without lymphadenopathy. CHEST: Non-labored respirations and equal bilateral excursions. CARDIOVASCULAR: Palpable 2+ radial pulses. ABDOMEN: Soft. Nondistended. Nontender. MUSCULOSKELETAL: No clubbing or cyanosis. NEUROLOGIC: No focal or lateralizing signs. Cranial nerves II through XII grossly intact. PSYCH: Appropriate affect. Alert and oriented to person, place and time. SKIN: Well perfused. Good skin turgor. ASSESSMENT: 1. Status post ground-level fall 2. Neuropathy 3. Diabetes type 2, insulin-dependent 4. Hypertensive heart disease 5. COVID-19 infection 6. Chronic obstructive pulmonary disease 7. Back pain with previous back surgery PLAN: -No surgical intervention planned -Continue supportive care -Continue medical management for neuropathy and pneumonia Physician Storehouse Clerk note has been reviewed by physician. Signing provider agrees with the documented findings, assessment, and plan of care. REASON FOR CONSULTATION: Status post fall HISTORY OF PRESENT ILLNESS: The patient is a 66 year old female readmitted after a fall. She presented with diffuse abdominal back pain. She is tolerating diet. REVIEW OF ORGAN SYSTEMS: RESPIRATORY: Chronic obstructive pulmonary disease. CARDIOVASCULAR: Has hypertensive heart disease. GASTROINTESTINAL: Has gastroesophageal reflux disease. Has iron deficiency. NEUROLOGICAL: Has numbness or tingling along the distal extremities. No seizure disorders or headaches. Has neuropathy PHYSICAL EXAM: VITALS: Reviewed CONSTITUTIONAL: Well developed and in no acute distress. EYES: Conjuctivae without sclera icterus. Extraocular movements grossly intact. HEAD, EARS, NOSE, THROAT: Moist buccal mucosa. Head is atraumatic, normocephalic. Hears conversational speech. No nasal drainage. RESPIRATORY: Non-labored respirations and equal bilateral excursions. No gross wheezes. CARDIOVASCULAR: Palpable 2+ radial pulses. ABDOMEN: Obese. No peritonitis. MUSCULOSKELETAL: No clubbing cyanosis or edema. SKIN: Warm and well perfused with good skin turgor. NEUROLOGIC: Cranial nerves II through XII grossly intact. No focal or lateralizing signs. Has neuropathy bilateral lower extremities PSYCH: Appropriate affect. Alert and oriented to person, place and time. Displays appropriate insight. CLINCAL LABS: Reviewed. ASSESSMENT: 1. Status post ground-level fall 2. Neuropathy 3. Diabetes type 2, insulin-dependent 4. Hypertensive heart disease 5. COVID-19 infection 6. Chronic obstructive pulmonary disease PLAN: 1. She has no acute traumatic injuries warranting surgical intervention. 2. Management of neuropathy pneumonia per medicine 3. Trauma surgery service signing off. Please reconsult if needed Objective - Vital Signs Vital signs: Vital Signs Temp 97.7 F 06/16/22 07:25 Pulse 70 06/16/22 08:14 Resp 19 06/16/22 08:14 BP 101/56 06/16/22 07:25 Pulse Ox 92 L 06/16/22 10:45 FiO2 Intake & Output 06/15/22 06/16/22 06/16/22 18:59 06:59 18:59 Output Total 375 180 Balance -375 -180 Output: Urine 375 180 Other: Voiding Method External Catheter External Catheter External Catheter # Voids 1 - Labs CBC & Chem 7: 06/16/22 06:06 06/16/22 06:06 Labs: Abnormal Lab Results - Last 24 Hours (Table) 06/15/22 06/15/22 06/15/22 Range/Units 06:18 06:18 12:14 WBC (4.50-10.00) X 10*3/uL RBC (4.10-5.20) X 10*6/uL Hgb (12.0-15.0) g/dL Hct (37.2-46.3) % MCV (80.0-97.0) fL MCHC (32.0-37.0) g/dL RDW (11.5-14.5) % Plt Count (140-440) X 10*3/uL Immature Gran # (0.00-0.04) X 10*3/uL Neutrophils # (1.80-7.70) X 10*3/uL Lymphocytes # (0.90-5.00) X 10*3/uL Eosinophils # (0.04-0.35) X 10*3/uL D-Dimer (<0.60) mg/L FEU Sodium (135-145) mmol/L Chloride (96-109) mmol/L BUN (9.0-27.0) mg/dL Est GFR (CKD-EPI)AfAm (60.0-200.0) Est GFR (CKD-EPI)NonAf (60.0-200.0) BUN/Creatinine Ratio (12.00-20.00) Ratio Glucose (70-110) mg/dL POC Glucose (mg/dL) (70-110) mg/dL Hemoglobin A1c 7.5 H (0.0-6.0) % Calcium (8.7-10.3) mg/dL Creatine Kinase 355 H (30-135) U/L C-Reactive Protein (0.00-0.80) mg/dL Total Protein (6.2-8.2) g/dL Albumin (3.8-4.9) g/dL Procalcitonin 7.77 H (0.02-0.09) ng/mL 06/15/22 06/16/22 06/16/22 Range/Units 20:55 06:06 06:06 WBC (4.50-10.00) X 10*3/uL RBC (4.10-5.20) X 10*6/uL Hgb (12.0-15.0) g/dL Hct (37.2-46.3) % MCV (80.0-97.0) fL MCHC (32.0-37.0) g/dL RDW (11.5-14.5) % Plt Count (140-440) X 10*3/uL Immature Gran # (0.00-0.04) X 10*3/uL Neutrophils # (1.80-7.70) X 10*3/uL Lymphocytes # (0.90-5.00) X 10*3/uL Eosinophils # (0.04-0.35) X 10*3/uL D-Dimer (<0.60) mg/L FEU Sodium 146 H (135-145) mmol/L Chloride 114 H (96-109) mmol/L BUN 48.0 H (9.0-27.0) mg/dL Est GFR (CKD-EPI)AfAm 41.7 L (60.0-200.0) Est GFR (CKD-EPI)NonAf 36.0 L (60.0-200.0) BUN/Creatinine Ratio 32.21 H (12.00-20.00) Ratio Glucose 237 H (70-110) mg/dL POC Glucose (mg/dL) 284 H (70-110) mg/dL Hemoglobin A1c (0.0-6.0) % Calcium 8.5 L (8.7-10.3) mg/dL Creatine Kinase (30-135) U/L C-Reactive Protein 18.30 H (0.00-0.80) mg/dL Total Protein 4.6 L (6.2-8.2) g/dL Albumin 2.9 L (3.8-4.9) g/dL Procalcitonin 6.47 H (0.02-0.09) ng/mL 06/16/22 06/16/22 06/16/22 Range/Units 06:06 06:06 06:08 WBC 11.48 H (4.50-10.00) X 10*3/uL RBC 3.58 L (4.10-5.20) X 10*6/uL Hgb 10.8 L (12.0-15.0) g/dL Hct 35.6 L (37.2-46.3) % MCV 99.4 H (80.0-97.0) fL MCHC 30.3 L (32.0-37.0) g/dL RDW 15.4 H (11.5-14.5) % Plt Count 112 L (140-440) X 10*3/uL Immature Gran # 0.07 H (0.00-0.04) X 10*3/uL Neutrophils # 10.62 H (1.80-7.70) X 10*3/uL Lymphocytes # 0.33 L (0.90-5.00) X 10*3/uL Eosinophils # 0 L (0.04-0.35) X 10*3/uL D-Dimer 2.83 H (<0.60) mg/L FEU Sodium (135-145) mmol/L Chloride (96-109) mmol/L BUN (9.0-27.0) mg/dL Est GFR (CKD-EPI)AfAm (60.0-200.0) Est GFR (CKD-EPI)NonAf (60.0-200.0) BUN/Creatinine Ratio (12.00-20.00) Ratio Glucose (70-110) mg/dL POC Glucose (mg/dL) 223 H (70-110) mg/dL Hemoglobin A1c (0.0-6.0) % Calcium (8.7-10.3) mg/dL Creatine Kinase (30-135) U/L C-Reactive Protein (0.00-0.80) mg/dL Total Protein (6.2-8.2) g/dL Albumin (3.8-4.9) g/dL Procalcitonin (0.02-0.09) ng/mL 06/16/22 Range/Units 11:26 WBC (4.50-10.00) X 10*3/uL RBC (4.10-5.20) X 10*6/uL Hgb (12.0-15.0) g/dL Hct (37.2-46.3) % MCV (80.0-97.0) fL MCHC (32.0-37.0) g/dL RDW (11.5-14.5) % Plt Count (140-440) X 10*3/uL Immature Gran # (0.00-0.04) X 10*3/uL Neutrophils # (1.80-7.70) X 10*3/uL Lymphocytes # (0.90-5.00) X 10*3/uL Eosinophils # (0.04-0.35) X 10*3/uL D-Dimer (<0.60) mg/L FEU Sodium (135-145) mmol/L Chloride (96-109) mmol/L BUN (9.0-27.0) mg/dL Est GFR (CKD-EPI)AfAm (60.0-200.0) Est GFR (CKD-EPI)NonAf (60.0-200.0) BUN/Creatinine Ratio (12.00-20.00) Ratio Glucose (70-110) mg/dL POC Glucose (mg/dL) 274 H (70-110) mg/dL Hemoglobin A1c (0.0-6.0) % Calcium (8.7-10.3) mg/dL Creatine Kinase (30-135) U/L C-Reactive Protein (0.00-0.80) mg/dL Total Protein (6.2-8.2) g/dL Albumin (3.8-4.9) g/dL Procalcitonin (0.02-0.09) ng/mL
[2022-06-16 16:31] LABS: Glucose,Whole Blood 287 mg/dL (70-110)
[2022-06-16 21:37] LABS: Glucose,Whole Blood 305 mg/dL (70-110)
[2022-06-16] MEDS: MAGNESIUM OXIDE 400 MG TAB PO SCH (21:43)
[2022-06-16] MEDS: ASPIRIN 81 MG PO SCH (21:43)
[2022-06-16] MEDS: ATORVASTATIN 20 MG TAB PO SCH (21:43)
[2022-06-16] MEDS: TOPIRAMATE 25 MG TAB PO SCH (21:44)
--- NOTE | 2022-06-16 21:44 | P.PN ---
Subjective Progress Note Date: 06/16/22 Principal diagnosis: Covid 19 pneumonia Patient is a 66-year-old female with multiple comorbidities including asthma diabetes hypertension hyperlipidemia she was recently admitted to this facility diagnosed and treated for COVID-19 patient now presented to the hospital after the patient did have a fall in his feet on the ground for 48 hour before patient was brought to the hospital CT did shows multifocal opacity concerning for atypical pneumonia. On today's evaluation that is 06/16/2022, the patient denies having any fever or any chills, patient is breathing comfortably currently on 5 L nasal cannula oxygen patient denies having any chest pain she did have a cough and is bringing up some sputum some nausea but no vomiting and abdominal pain no diarrhea Objective - Vital Signs Vital signs: Vital Signs Temp 97.5 F L 06/16/22 13:58 Pulse 66 06/16/22 13:58 Resp 17 06/16/22 13:58 BP 101/62 06/16/22 13:58 Pulse Ox 92 L 06/16/22 13:58 FiO2 Intake & Output 06/15/22 06/16/22 06/16/22 18:59 06:59 18:59 Output Total 375 180 Balance -375 -180 Output: Urine 375 180 Other: Voiding Method External Catheter External Catheter External Catheter # Voids 1 - Exam GENERAL DESCRIPTION: An elderly female up in the chair in no distress RESPIRATORY SYSTEM: Unlabored breathing , decreased breath sounds at bases HEART: S1 S2 regular rate and rhythm , ABDOMEN: Soft , no tenderness EXTREMITIES: No edema feet - Labs CBC & Chem 7: 06/16/22 06:06 06/16/22 06:06 Labs: Abnormal Lab Results - Last 24 Hours (Table) 06/15/22 06/15/22 06/15/22 Range/Units 06:18 06:18 20:55 WBC (4.50-10.00) X 10*3/uL RBC (4.10-5.20) X 10*6/uL Hgb (12.0-15.0) g/dL Hct (37.2-46.3) % MCV (80.0-97.0) fL MCHC (32.0-37.0) g/dL RDW (11.5-14.5) % Plt Count (140-440) X 10*3/uL Immature Gran # (0.00-0.04) X 10*3/uL Neutrophils # (1.80-7.70) X 10*3/uL Lymphocytes # (0.90-5.00) X 10*3/uL Eosinophils # (0.04-0.35) X 10*3/uL D-Dimer (<0.60) mg/L FEU Sodium (135-145) mmol/L Chloride (96-109) mmol/L BUN (9.0-27.0) mg/dL Est GFR (CKD-EPI)AfAm (60.0-200.0) Est GFR (CKD-EPI)NonAf (60.0-200.0) BUN/Creatinine Ratio (12.00-20.00) Ratio Glucose (70-110) mg/dL POC Glucose (mg/dL) 284 H (70-110) mg/dL Hemoglobin A1c 7.5 H (0.0-6.0) % Calcium (8.7-10.3) mg/dL C-Reactive Protein (0.00-0.80) mg/dL Total Protein (6.2-8.2) g/dL Albumin (3.8-4.9) g/dL Procalcitonin 7.77 H (0.02-0.09) ng/mL 06/16/22 06/16/22 06/16/22 Range/Units 06:06 06:06 06:06 WBC 11.48 H (4.50-10.00) X 10*3/uL RBC 3.58 L (4.10-5.20) X 10*6/uL Hgb 10.8 L (12.0-15.0) g/dL Hct 35.6 L (37.2-46.3) % MCV 99.4 H (80.0-97.0) fL MCHC 30.3 L (32.0-37.0) g/dL RDW 15.4 H (11.5-14.5) % Plt Count 112 L (140-440) X 10*3/uL Immature Gran # 0.07 H (0.00-0.04) X 10*3/uL Neutrophils # 10.62 H (1.80-7.70) X 10*3/uL Lymphocytes # 0.33 L (0.90-5.00) X 10*3/uL Eosinophils # 0 L (0.04-0.35) X 10*3/uL D-Dimer (<0.60) mg/L FEU Sodium 146 H (135-145) mmol/L Chloride 114 H (96-109) mmol/L BUN 48.0 H (9.0-27.0) mg/dL Est GFR (CKD-EPI)AfAm 41.7 L (60.0-200.0) Est GFR (CKD-EPI)NonAf 36.0 L (60.0-200.0) BUN/Creatinine Ratio 32.21 H (12.00-20.00) Ratio Glucose 237 H (70-110) mg/dL POC Glucose (mg/dL) (70-110) mg/dL Hemoglobin A1c (0.0-6.0) % Calcium 8.5 L (8.7-10.3) mg/dL C-Reactive Protein 18.30 H (0.00-0.80) mg/dL Total Protein 4.6 L (6.2-8.2) g/dL Albumin 2.9 L (3.8-4.9) g/dL Procalcitonin 6.47 H (0.02-0.09) ng/mL 06/16/22 06/16/22 06/16/22 Range/Units 06:06 06:08 11:26 WBC (4.50-10.00) X 10*3/uL RBC (4.10-5.20) X 10*6/uL Hgb (12.0-15.0) g/dL Hct (37.2-46.3) % MCV (80.0-97.0) fL MCHC (32.0-37.0) g/dL RDW (11.5-14.5) % Plt Count (140-440) X 10*3/uL Immature Gran # (0.00-0.04) X 10*3/uL Neutrophils # (1.80-7.70) X 10*3/uL Lymphocytes # (0.90-5.00) X 10*3/uL Eosinophils # (0.04-0.35) X 10*3/uL D-Dimer 2.83 H (<0.60) mg/L FEU Sodium (135-145) mmol/L Chloride (96-109) mmol/L BUN (9.0-27.0) mg/dL Est GFR (CKD-EPI)AfAm (60.0-200.0) Est GFR (CKD-EPI)NonAf (60.0-200.0) BUN/Creatinine Ratio (12.00-20.00) Ratio Glucose (70-110) mg/dL POC Glucose (mg/dL) 223 H 274 H (70-110) mg/dL Hemoglobin A1c (0.0-6.0) % Calcium (8.7-10.3) mg/dL C-Reactive Protein (0.00-0.80) mg/dL Total Protein (6.2-8.2) g/dL Albumin (3.8-4.9) g/dL Procalcitonin (0.02-0.09) ng/mL Assessment and Plan (1) Pneumonia due to COVID-19 virus Current Visit: Yes Status: Acute Code(s): U07.1 - COVID-19; J12.82 - PNEUMONIA DUE TO CORONAVIRUS DISEASE 2018 SNOMED Code(s): 533290886015143393 Plan: 1patient presented to hospital with a weakness and did have a fall in this patient with recent diagnosis of COVID-19 about 10 days ago patient did not have any acute infiltrate on chest x-ray on the CT on her last visit however CT this admission is showing multifocal infiltrate suggestive of atypical pneumonia patient did have mild elevated white count however the patient did have elevated will consider a 6.17 2-mildly positive UA however no significant urinary symptoms 3-patient to continue with the dexamethasone heparin along with zinc and ascorbic acid 4we will try to obtain sputum for Gram stain and culture and add cefepime, because of elevated pro-calcitonin Time with Patient: Less than 30
[2022-06-16] MEDS: CEFEPIME 2 GM in SODIUM CHLORIDE 0.9% 100 ML IVPB SCH (22:38)
[2022-06-17] MEDS: FLUTICASONE 110 MCG INHALER INHALATION SCH ×3 (02:00→22:32)
[2022-06-17] MEDS: MECLIZINE 12.5 MG TAB PO SCH ×3 (04:15→17:09)
[2022-06-17 06:25] LABS: Glucose,Whole Blood 250 mg/dL (70-110)
[2022-06-17] MEDS: INSULIN ASPART (NovoLOG) 100 UNIT/ML VIAL SQ SCH ×3 (06:46→17:10)
[2022-06-17 06:52] LABS: Basophils % (A) 0 %; Eosinophils % (A) 0 %; HCT 35.4 % (34.0-46.0); HGB 11.7 gm/dL (11.4-16.0); Lymphocytes # (A) 0.4 k/uL (1.0-4.8); Lymphocytes % (A) 3 %; MCH 32.2 pg (25.0-35.0); MCV 97.8 fL (80.0-100.0); Mean Platelet Volume 8.7; Monocytes # (A) 0.6 k/uL (0-1.0); Monocytes % (A) 5 %; Neutrophils # (A) 12.1 k/uL (1.3-7.7); Neutrophils % (A) 92 %; Platelet Count 135 k/uL (150-450); RBC 3.62 m/uL (3.80-5.40); RDW 14.7 % (11.5-15.5); WBC 13.2 k/uL (3.8-10.6)
[2022-06-17 06:56] LABS: ALT 28 U/L (4-34); AST 29 U/L (14-36); African American GFR (CKD) 40 (>60 ml/min/1.73 sqM); Albumin 2.5 g/dL (3.5-5.0); Albumin/Globulin Ratio 1.1; Alkaline Phosphatase 104 U/L (38-126); Anion Gap 4 mmol/L; Blood Urea Nitrogen 46 mg/dL (7-17); Calcium 8.3 mg/dL (8.4-10.2); Carbon Dioxide 24 mmol/L (22-30); Chloride 114 mmol/L (98-107); Globulin 2.2 g/dL; Glucose 248 mg/dL (74-99); Non-African American GFR(CKD) 34 (>60 ml/min/1.73 sqM); Potassium 4.7 mmol/L (3.5-5.1); Sodium 142 mmol/L (137-145); Total Bilirubin 0.8 mg/dL (0.2-1.3); Total Protein 4.7 g/dL (6.3-8.2)
[2022-06-17] MEDS: HEPARIN SODIUM,PORCINE/PF 5,000 UNIT/0.5 ML SYRINGE SQ SCH ×3 (09:47→23:21)
[2022-06-17] MEDS: ASCORBIC ACID 500 MG TAB PO SCH (10:02)
[2022-06-17] MEDS: BENZONATATE 100 MG CAP PO SCH ×3 (10:02→22:31)
[2022-06-17] MEDS: GABAPENTIN 300 MG CAP PO SCH ×4 (10:02→22:31)
[2022-06-17] MEDS: SERTRALINE 50 MG TAB PO SCH (10:02)
[2022-06-17] MEDS: DEXAMETHASONE SOD PHOSPHATE 10 MG/ML 1 ML VIAL IVP SCH (10:02)
[2022-06-17] MEDS: MIDODRINE 5 MG TAB PO SCH ×3 (10:03→22:31)
[2022-06-17] MEDS: FUROSEMIDE 40 MG TAB PO SCH (10:03)
[2022-06-17] MEDS: HYDROcodone/APAP 10-325MG 1 EACH TAB PO SCH ×4 (10:03→22:31)
[2022-06-17] MEDS: CYANOCOBALAMIN 500 MCG TAB PO SCH (10:03)
[2022-06-17] MEDS: FERROUS SULFATE 325 MG TAB PO SCH (10:03)
[2022-06-17] MEDS: allopurinoL 100 MG TAB PO SCH (10:03)
[2022-06-17] MEDS: DOCUSATE 100 MG CAP PO SCH (10:04)
[2022-06-17] MEDS: ZINC SULFATE 220 MG CAP PO SCH (10:04)
[2022-06-17] MEDS: PANTOPRAZOLE 40 MG TABLET PO SCH (10:04)
[2022-06-17] MEDS: TOPIRAMATE 25 MG TAB PO SCH (10:04)
[2022-06-17] MEDS: carvediloL 6.25 MG TAB PO SCH ×2 (10:04→22:31)
[2022-06-17] MEDS: DAPAGLIFLOZIN PROPANEDIOL 5 MG TABLET PO SCH (10:05)
[2022-06-17] MEDS: LEVOFLOXACIN 250 MG TAB PO SCH (10:05)
[2022-06-17] MEDS: CEFEPIME 2 GM in SODIUM CHLORIDE 0.9% 100 ML IVPB SCH ×2 (10:06→22:31)
[2022-06-17] MEDS: ALBUTEROL HFA INHALER INHALATION PRN ×4 (10:19→21:11)
[2022-06-17] MEDS: SYMBICORT 160-4.5 MCG INHALER INHALATION SCH ×2 (10:19→21:11)
[2022-06-17 10:53] LABS: Glucose,Whole Blood 239 mg/dL (70-110)
--- NOTE | 2022-06-17 12:03 | P.PN ---
Subjective Progress Note Date: 06/17/22 This is a 66-year-old female patient with a history of mild intermittent chronic bronchial asthma, diabetes mellitus type 2, hyperlipidemia, obstructive sleep apnea maintained on BiPAP, cardiomyopathy status post AICD placement, anxiety/depression, chronic kidney disease stage III, bilateral neuropathy of the lower extremities. Lifelong nonsmoker. No home oxygen. She was recently discharged from here on 06/09/2022 after being admitted for CoVID 19 infection treated with Decadron and multivitamin and discharged on 06/11/2022. The patient states on June 12 she fell at home and was unable to get herself up or call for help. She denied any loss of consciousness. Denied any injury. She was down for 2 days before she was able to get to phone and call EMS. Seen here in the emergency room on 06/14/2022. X-ray of the pelvis revealed no evidence of fracture. Computed tomography scan of the chest abdomen pelvis revealed multifocal groundglass airspace opacities within the lungs concerning for acute infectious process such as atypical pneumonia. No acute intra-abdominal process. Extensive postsurgical changes to the lumbar spine. Computed tomography scan of the head and neck revealed no acute intracranial processes. No evidence of cervical spine fracture. Groundglass opacities seen again. Multi-level degenerative disc disease noted. ET scan of the lumbar spine revealed extensive postsurgical changes. Multilevel degenerative changes. No acute fractures. Of note, computed tomography scan of the chest dated 06/09/2022 did not reveal any evidence of groundglass opacities. She was maintaining O2 saturations in the low 90s on 2 L/m per nasal cannula. Afebrile. Hemodynamically stable. White count 8.8. Hemoglobin 11.1. Platelet count 90,000. Sodium 143. Potassium 4.7. Bicarb 20. BUN 38. Creatinine 1.46. Glucose 191. CK level 831. ProBNP 2050. Troponin negative 1. Urinalysis cloudy with 4+ glucose large amount of blood. Moderate leukocytes. High white count. Urine drug screen positive for opiates. [place] virus by PCR positive. She is seen today in consultation on the regular medical floor. She is currently resting fairly comfortably in bed. Awake and alert in no acute distress. She is a dry nonproductive cough. No fever or chills. No hemop tysis. She has been initiated on Decadron, vitamin supplements, Symbicort and albuterol. Progress note dated 06/16/2022. 66-year-old female seen in consultation yesterday. Please see the note above. She seen today in room 458. The patient states that she's feeling a bit better today. She is getting oxygen at 3 L by nasal cannula. The patient is not receiving any IV fluids. She does feel weak and fatigued. She has minimal cough. She's not coughing up any phlegm. No new laboratory data today other than a d-dimer of 2.83 glucose of 274. Chest x-ray from yesterday shows diffuse bilateral infiltrates. On today's evaluation of 06/17/2022, the patient is being seen for a follow-up. The patient remains on 5 L of oxygen by nasal cannula. She is gradually improving. She feels slightly better on today's evaluation. She continues to have some congested cough. She remains on Decadron 620 g IV every 24 hours. She is also on empiric antibiotic coverage IV cefepime. Otherwise, no other new complaints for now. The white suppositive 13.2 with hemoglobin 11.7 and a platelet count of 135. BUN is at 46 with a creatinine of 1.5 sugar slightly elevated because of steroids at 248. Sodium level is at 142. Most recent chest x-ray from 06/15/2022 showed bilateral interstitial pulmonary infiltrates/edema. She had a CT angiogram on 06/09/2022 that showed no other acute abnormalities. The lungs were essentially clear back then. Repeat CAT scan of the chest showed multifocal groundglass airspace disease and the patient tested positive for Covid 19. Note that the infiltrate developed over 5 days interval. This patient is also vaccinated and boosted for Covid 19. Objective - Vital Signs Vital signs: Vital Signs Temp 97.5 F L 06/17/22 07:15 Pulse 65 06/17/22 07:15 Resp 20 06/17/22 07:15 BP 136/72 06/17/22 07:15 Pulse Ox 92 L 06/17/22 08:10 FiO2 Intake & Output 06/16/22 06/17/22 06/17/22 18:59 06:59 18:59 Intake Total 100 Balance 100 Intake: Intake, IV Titration 100 Amount Cefepime 2 gm In Sodium 100 Chloride 0.9% 100 ml @ 25 mls/hr IVPB Q12H [facility] Rx# :[id number] Other: Voiding Method External Catheter Toilet # Voids 3 1 1 # Bowel Movements 1 1 - Exam No acute distress, oriented 3. Currently on 5 L of oxygen. HEENT examination is grossly unremarkable. Mucous membranes are moist. No oral lesions. Neck supple. Full range of motion. No adenopathy thyromegaly or neck vein distention. Cardiovascular examination reveals regular rhythm rate. S1-S2 normal. No S3 or S4. No discernible murmur noted. Heart sounds are distant. Lungs reveal scattered bilateral rhonchi. Breath sounds equal. No wheezes. Saturations are in the low 90s. Abdomen is obese. Bowel sounds are noted. No masses or tenderness. Extremities are intact. No cyanosis clubbing or edema. Skin is without rash or lesion. Neurologic examination is brief but nonfocal. - Labs CBC & Chem 7: 06/17/22 05:48 06/17/22 05:48 Labs: Abnormal Lab Results - Last 24 Hours (Table) 06/16/22 06/16/22 06/16/22 Range/Units 06:06 06:06 16:30 WBC (3.8-10.6) k/uL RBC (3.80-5.40) m/uL Plt Count (150-450) k/uL Neutrophils # (1.3-7.7) k/uL Lymphocytes # (1.0-4.8) k/uL Sodium 146 H (135-145) mmol/L Chloride 114 H (96-109) mmol/L BUN 48.0 H (9.0-27.0) mg/dL Creatinine (0.52-1.04) mg/dL Est GFR (CKD-EPI)AfAm 41.7 L (60.0-200.0) Est GFR (CKD-EPI)NonAf 36.0 L (60.0-200.0) BUN/Creatinine Ratio 32.21 H (12.00-20.00) Ratio Glucose 237 H (70-110) mg/dL POC Glucose (mg/dL) 287 H (70-110) mg/dL Calcium 8.5 L (8.7-10.3) mg/dL C-Reactive Protein 18.30 H (0.00-0.80) mg/dL Total Protein 4.6 L (6.2-8.2) g/dL Albumin 2.9 L (3.8-4.9) g/dL Procalcitonin 6.47 H (0.02-0.09) ng/mL 06/16/22 06/17/22 06/17/22 Range/Units 21:36 05:48 05:48 WBC 13.2 H (3.8-10.6) k/uL RBC 3.62 L (3.80-5.40) m/uL Plt Count 135 L (150-450) k/uL Neutrophils # 12.1 H (1.3-7.7) k/uL Lymphocytes # 0.4 L (1.0-4.8) k/uL Sodium (135-145) mmol/L Chloride 114 H (96-109) mmol/L BUN 46 H (9.0-27.0) mg/dL Creatinine 1.55 H (0.52-1.04) mg/dL Est GFR (CKD-EPI)AfAm (60.0-200.0) Est GFR (CKD-EPI)NonAf (60.0-200.0) BUN/Creatinine Ratio (12.00-20.00) Ratio Glucose 248 H (70-110) mg/dL POC Glucose (mg/dL) 305 H (70-110) mg/dL Calcium 8.3 L (8.7-10.3) mg/dL C-Reactive Protein (0.00-0.80) mg/dL Total Protein 4.7 L (6.2-8.2) g/dL Albumin 2.5 L (3.8-4.9) g/dL Procalcitonin (0.02-0.09) ng/mL 06/17/22 06/17/22 Range/Units 06:23 10:52 WBC (3.8-10.6) k/uL RBC (3.80-5.40) m/uL Plt Count (150-450) k/uL Neutrophils # (1.3-7.7) k/uL Lymphocytes # (1.0-4.8) k/uL Sodium (135-145) mmol/L Chloride (96-109) mmol/L BUN (9.0-27.0) mg/dL Creatinine (0.52-1.04) mg/dL Est GFR (CKD-EPI)AfAm (60.0-200.0) Est GFR (CKD-EPI)NonAf (60.0-200.0) BUN/Creatinine Ratio (12.00-20.00) Ratio Glucose (70-110) mg/dL POC Glucose (mg/dL) 250 H 239 H (70-110) mg/dL Calcium (8.7-10.3) mg/dL C-Reactive Protein (0.00-0.80) mg/dL Total Protein (6.2-8.2) g/dL Albumin (3.8-4.9) g/dL Procalcitonin (0.02-0.09) ng/mL Assessment and Plan Plan: Acute hypoxemic respiratory failure secondary to acute COVID-19 pneumonia. The patient developed diffuse groundglass pulmonary infiltrates based on the CAT scan of the chest that was done on 06/14/2022. She is currently on 5 L of oxygen by nasal cannula. D-dimer was at 2.8. Pro-calcitonin level was also elevated at 6.47 and this is most likely a viral pneumonia based on the CAT scan findings with the potential of a superinfection with bacteria and based on that the patient is on IV cefepime. Recent discharge 06/11/2022 for COVID-19 infection. The patient tested positive for Covid 19 on 06/14/2022 and she was also positive on 06/08/2022. Generalized weakness and fall and on the ground at home for 2 days prior to arrival. Rhabdomyolysis with CK 831. Acute on chronic renal failure. History of chronic kidney disease stage III. Suspected urinary tract infection, culture pending. Acute exacerbation of chronic systolic congestive heart failure with an ejection fraction of 30-35%. Cardiomyopathy status post AICD placement. History of mild intermittent chronic bronchial asthma. History of obstructive sleep apnea maintained on BiPAP. Lifelong nonsmoker. History of anxiety/depression. Hyperlipidemia. Diabetes mellitus, type II. Diabetic neuropathy. History of kidney stones with previous sepsis. Poor overall functional performance based on the above-mentioned multiple comorbidities. Plan: Continue attempts to wean down FiO2 currently on 5 L Continue Decadron Recheck d-dimer is and LDH for the morning also check pro calcitonin level Continue IV cefepime Repeat chest x-ray in the morning Monitor renal function creatinine is stable for now We'll continue to follow
[2022-06-17 16:00] LABS: Glucose,Whole Blood 402 mg/dL (70-110)
--- NOTE | 2022-06-17 21:38 | P.PN ---
Subjective Progress Note Date: 06/17/22 Principal diagnosis: Covid 19 pneumonia Patient is a 66-year-old female with multiple comorbidities including asthma diabetes hypertension hyperlipidemia she was recently admitted to this facility diagnosed and treated for COVID-19 patient now presented to the hospital after the patient did have a fall in his feet on the ground for 48 hour before patient was brought to the hospital CT did shows multifocal opacity concerning for atypical pneumonia. On today's evaluation that is 06/17/2022, the patient remains to be afebrile, patient is breathing comfortably currently on 5 L nasal cannula oxygen patient denies chest pain she did have a cough and is bringing up some sputum , sputum sample has been collected, the patient denies nausea no vomiting and abdominal pain no diarrhea Objective - Vital Signs Vital signs: Vital Signs Temp 97.2 F L 06/17/22 13:15 Pulse 62 06/17/22 13:15 Resp 20 06/17/22 13:15 BP 132/70 06/17/22 13:15 Pulse Ox 90 L 06/17/22 13:15 FiO2 Intake & Output 06/16/22 06/17/22 06/17/22 18:59 06:59 18:59 Intake Total 100 Balance 100 Intake: Intake, IV Titration 100 Amount Cefepime 2 gm In Sodium 100 Chloride 0.9% 100 ml @ 25 mls/hr IVPB Q12H [facility] Rx# :[id number] Other: Voiding Method External Catheter Toilet # Voids 3 1 1 # Bowel Movements 1 1 - Exam GENERAL DESCRIPTION: An elderly female up in the chair in no distress RESPIRATORY SYSTEM: Unlabored breathing , decreased breath sounds at bases HEART: S1 S2 regular rate and rhythm , ABDOMEN: Soft , no tenderness EXTREMITIES: No edema feet - Labs CBC & Chem 7: 06/17/22 05:48 06/17/22 05:48 Labs: Abnormal Lab Results - Last 24 Hours (Table) 06/16/22 06/16/22 06/17/22 Range/Units 16:30 21:36 05:48 WBC 13.2 H (3.8-10.6) k/uL RBC 3.62 L (3.80-5.40) m/uL Plt Count 135 L (150-450) k/uL Neutrophils # 12.1 H (1.3-7.7) k/uL Lymphocytes # 0.4 L (1.0-4.8) k/uL Chloride (98-107) mmol/L BUN (7-17) mg/dL Creatinine (0.52-1.04) mg/dL Glucose (74-99) mg/dL POC Glucose (mg/dL) 287 H 305 H (70-110) mg/dL Calcium (8.4-10.2) mg/dL Total Protein (6.3-8.2) g/dL Albumin (3.5-5.0) g/dL 06/17/22 06/17/22 06/17/22 Range/Units 05:48 06:23 10:52 WBC (3.8-10.6) k/uL RBC (3.80-5.40) m/uL Plt Count (150-450) k/uL Neutrophils # (1.3-7.7) k/uL Lymphocytes # (1.0-4.8) k/uL Chloride 114 H (98-107) mmol/L BUN 46 H (7-17) mg/dL Creatinine 1.55 H (0.52-1.04) mg/dL Glucose 248 H (74-99) mg/dL POC Glucose (mg/dL) 250 H 239 H (70-110) mg/dL Calcium 8.3 L (8.4-10.2) mg/dL Total Protein 4.7 L (6.3-8.2) g/dL Albumin 2.5 L (3.5-5.0) g/dL Assessment and Plan (1) Pneumonia due to COVID-19 virus Current Visit: Yes Status: Acute Code(s): U07.1 - COVID-19; J12.82 - PNEUMONIA DUE TO CORONAVIRUS DISEASE 2018 SNOMED Code(s): 102128395761731647 Plan: 1patient presented to hospital with a weakness and did have a fall in this patient with recent diagnosis of COVID-19 about 10 days ago patient did not have any acute infiltrate on chest x-ray on the CT on her last visit however CT this admission is showing multifocal infiltrate suggestive of atypical pneumonia patient did have mild elevated white count however the patient did have elevated will consider a 6.17 2-mildly positive UA however no significant urinary symptoms 3-patient to continue with the dexamethasone heparin along with zinc and ascorbic acid 4 sputum for Gram stain and culture has been collected ,continue with cefepime while waiting for the cultures to finalize Time with Patient: Less than 30
[2022-06-17 22:08] LABS: Glucose,Whole Blood 213 mg/dL (70-110)
[2022-06-17] MEDS: ATORVASTATIN 20 MG TAB PO SCH (22:30)
[2022-06-17] MEDS: ASPIRIN 81 MG PO SCH (22:30)
[2022-06-17] MEDS: MAGNESIUM OXIDE 400 MG TAB PO SCH (22:31)
[2022-06-17] MEDS: INSULIN DETEMIR (LEVEMIR) 100 UNIT/ML SYR SQ SCH (22:32)
--- NOTE | 2022-06-17 23:07 | PN ---
PROGRESS NOTE SUBJECTIVE: A 66-year-old white female with COVID, generalized weakness, left-sided leg weakness from severe lumbar radiculopathy after a fall, unable to get up, rhabdomyolysis. She is doing better with fluids, but she still is very weak. D-dimer is high at 2.83. CT of the chest is pending. BUN is 48, creatinine 1.5. Sugars are in mid 200s. C- reactive protein 18.3, total protein 4.6, albumin is 2.9. Procalcitonin is high at 6.47. She needs broad-spectrum antibiotics, wait for further orders, wait for Infectious Disease orders. She remains on Maxipime (cefepime) per Dr. Yang while sepsis is being worked up. Cleared for COVID-19 also. She is seen by Pulmonology. She has atypical pneumonia and multifocal opacities in the CAT scan. She is on 5 L of oxygen . She normally wears 2 L of oxygen at home at night. OBJECTIVE: GENERAL: She appears weak and cachectic. HEART: S1 and S2. LUNGS: Scattered rhonchi and wheeze. HEMATOLOGY: Negative Homans. GI: Soft. LABORATORY DATA: Reviewed. ASSESSMENT: 1. COVID-19. 2. Abnormal CAT scan. 3. Possible acute pneumonia. 4. Elevated white count. 5. Elevated procalcitonin. 6. Positive UA. PLAN: Continue with dexamethasone and cefepime. Wait for further septic workup. Prognosis is guarded. PT and OT. She is going to [facility] for physical therapy. MMODL / IJN: [id number] /
[2022-06-18] MEDS: MECLIZINE 12.5 MG TAB PO SCH ×3 (02:30→17:43)
--- NOTE | 2022-06-18 02:40 | PN ---
PROGRESS NOTE SUBJECTIVE: This is a 66-year-old white female, saturating 95% on 5 L. White count is 13.2, hemoglobin is 11.7, BUN is 46, creatinine 1.55. Sugars in the mid 200s. OBJECTIVE: VITAL SIGNS: Blood pressure is 118/78, temp 97.8, pulse 60, respiratory rate 16 to 18. CARDIOVASCULAR: S1, S2. LUNGS: Clear. Scattered wheeze and rhonchi. HEMATOLOGY: Negative for Homans. Will get Pulmonary recommendations, Dr. Yang's recommendations. Normally, she wears 2 L of oxygen at night, but she had recently COVID-19, she has atypical pneumonia. She has never been on 0.5 L of nasal cannula. She has prerenal azotemia. BUN of 46, creatinine of 15.5. She has pneumonia secondary to COVID-19. She has atypical pneumonia on top of this. She has high procalcitonin, multifocal infiltrates suggestive of atypical pneumonia. She remains on COVID treatment. She is on broad- spectrum antibiotics on top of this for secondary infection. Wait for may be pulmonary needs to do a bronchoscopy to get the organism. She recovered from COVID and then she got worse. She possibly has a secondary infection. Await further recommendations. Sputum cultures, etc. Continue on antibiotics, wean as tolerated. She has acute hypoxemic respiratory failure secondary to COVID-19 and secondary infection. She has never been on 5 L oxygen. She had COVID for 2-3 weeks. She was never on more than 2 L at night. Procalcitonin today was severely elevated, since then possible viral pneumonia per [place]. She has generalized weakness, rhabdomyolysis, acute on chronic renal failure, chronic kidney disease stage 3. Possible low-grade urinary tract infections, systolic heart failure, cardiomyopathy, AICD, obstructive sleep apnea on BiPAP, anxiety, depression, dyslipidemia, type 2 diabetes, diabetic nephropathy, kidney stones. Poor overall functioning. Continue on broad-spectrum antibiotics. COVID treatments, possible bronchoscopy, see how she does. She wants to go to [facility]. She is afraid to live alone. MMODL / IJN: [id number] /
[2022-06-18 06:24] LABS: Glucose,Whole Blood 179 mg/dL (70-110)
[2022-06-18] MEDS: INSULIN ASPART (NovoLOG) 100 UNIT/ML VIAL SQ SCH ×3 (06:41→17:37)
[2022-06-18] MEDS: MIDODRINE 5 MG TAB PO SCH ×4 (07:44→21:04)
[2022-06-18] MEDS: GABAPENTIN 300 MG CAP PO SCH ×4 (07:44→20:55)
[2022-06-18] MEDS: carvediloL 6.25 MG TAB PO SCH ×2 (07:44→20:55)
[2022-06-18] MEDS: BENZONATATE 100 MG CAP PO SCH ×3 (07:44→20:55)
[2022-06-18] MEDS: HEPARIN SODIUM,PORCINE/PF 5,000 UNIT/0.5 ML SYRINGE SQ SCH ×2 (07:44→15:35)
[2022-06-18] MEDS: FUROSEMIDE 40 MG TAB PO SCH (07:45)
[2022-06-18] MEDS: FERROUS SULFATE 325 MG TAB PO SCH (07:45)
[2022-06-18] MEDS: HYDROcodone/APAP 10-325MG 1 EACH TAB PO SCH ×4 (07:45→20:55)
[2022-06-18] MEDS: SERTRALINE 50 MG TAB PO SCH (07:45)
[2022-06-18] MEDS: ZINC SULFATE 220 MG CAP PO SCH (07:45)
[2022-06-18] MEDS: allopurinoL 100 MG TAB PO SCH (07:45)
[2022-06-18] MEDS: PANTOPRAZOLE 40 MG TABLET PO SCH (07:45)
[2022-06-18] MEDS: ASCORBIC ACID 500 MG TAB PO SCH (07:45)
[2022-06-18] MEDS: DOCUSATE 100 MG CAP PO SCH (07:46)
[2022-06-18] MEDS: DAPAGLIFLOZIN PROPANEDIOL 5 MG TABLET PO SCH (07:46)
[2022-06-18] MEDS: LEVOFLOXACIN 250 MG TAB PO SCH (07:46)
[2022-06-18] MEDS: CYANOCOBALAMIN 500 MCG TAB PO SCH (07:46)
[2022-06-18] MEDS: ALBUTEROL HFA INHALER INHALATION PRN ×3 (08:37→21:41)
[2022-06-18] MEDS: SYMBICORT 160-4.5 MCG INHALER INHALATION SCH ×2 (08:37→21:41)
[2022-06-18] MEDS: CEFEPIME 2 GM in SODIUM CHLORIDE 0.9% 100 ML IVPB SCH ×2 (09:44→20:57)
[2022-06-18] MEDS: DEXAMETHASONE SOD PHOSPHATE 10 MG/ML 1 ML VIAL IVP SCH (09:44)
[2022-06-18 11:14] LABS: Glucose,Whole Blood 188 mg/dL (70-110)
--- NOTE | 2022-06-18 14:52 | P.PN ---
Subjective Progress Note Date: 06/18/22 Principal diagnosis: Covid 19 pneumonia Patient is a 66-year-old female with multiple comorbidities including asthma diabetes hypertension hyperlipidemia she was recently admitted to this facility diagnosed and treated for COVID-19 patient now presented to the hospital after the patient did have a fall in his feet on the ground for 48 hour before patient was brought to the hospital CT did shows multifocal opacity concerning for atypical pneumonia. On today's evaluation that is 06/18/2022, the patient continues to be afebrile, patient is breathing comfortably and is down to 4 L nasal cannula oxygen patient denies chest pain has any worsening cough or sputum production , the patient denies nausea no vomiting and abdominal pain no diarrhea Objective - Vital Signs Vital signs: Vital Signs Temp 99.2 F 06/18/22 07:35 Pulse 63 06/18/22 07:35 Resp 20 06/18/22 07:35 BP 106/71 06/18/22 07:35 Pulse Ox 90 L 06/18/22 09:30 FiO2 Intake & Output 06/17/22 06/18/22 06/18/22 18:59 06:59 18:59 Other: Voiding Method Toilet Toilet # Voids 2 2 3 # Bowel Movements 1 - Exam GENERAL DESCRIPTION: An elderly female up in the chair in no distress RESPIRATORY SYSTEM: Unlabored breathing , decreased breath sounds at bases HEART: S1 S2 regular rate and rhythm , ABDOMEN: Soft , no tenderness EXTREMITIES: No edema feet - Labs CBC & Chem 7: 06/17/22 05:48 06/17/22 05:48 Labs: Abnormal Lab Results - Last 24 Hours (Table) 06/17/22 06/17/22 06/18/22 Range/Units 15:59 22:06 06:22 POC Glucose (mg/dL) 402 H 213 H 179 H (70-110) mg/dL 06/18/22 Range/Units 11:12 POC Glucose (mg/dL) 188 H (70-110) mg/dL Microbiology - Last 24 Hours (Table) 06/17/22 12:14 Gram Stain - Preliminary Sputum Sputum Culture - Preliminary Assessment and Plan (1) Pneumonia due to COVID-19 virus Current Visit: Yes Status: Acute Code(s): U07.1 - COVID-19; J12.82 - PNEUMONIA DUE TO CORONAVIRUS DISEASE 2018 SNOMED Code(s): 282340019648799370 Plan: 1patient presented to hospital with a weakness and did have a fall in this patient with recent diagnosis of COVID-19 about 10 days ago patient did not have any acute infiltrate on chest x-ray on the CT on her last visit however CT this admission is showing multifocal infiltrate suggestive of atypical pneumonia patient did have mild elevated white count however the patient did have elevated will consider a 6.17 2-mildly positive UA however no significant urinary symptoms 3-patient to continue with the dexamethasone heparin along with zinc and ascorbic acid 4 patient sputum for Gram stain and culture has been collected which is currently pending , patient to continue with cefepime while waiting for the cultures to finalize Time with Patient: Less than 30
[2022-06-18] MEDS: FLUTICASONE 110 MCG INHALER INHALATION SCH (15:21)
--- NOTE | 2022-06-18 15:41 | P.PN ---
Subjective Progress Note Date: 06/18/22 This is a 66-year-old female patient with a history of mild intermittent chronic bronchial asthma, diabetes mellitus type 2, hyperlipidemia, obstructive sleep apnea maintained on BiPAP, cardiomyopathy status post AICD placement, anxiety/depression, chronic kidney disease stage III, bilateral neuropathy of the lower extremities. Lifelong nonsmoker. No home oxygen. She was recently discharged from here on 06/09/2022 after being admitted for CoVID 19 infection treated with Decadron and multivitamin and discharged on 06/11/2022. The patient states on June 12 she fell at home and was unable to get herself up or call for help. She denied any loss of consciousness. Denied any injury. She was down for 2 days before she was able to get to phone and call EMS. Seen here in the emergency room on 06/14/2022. X-ray of the pelvis revealed no evidence of fracture. Computed tomography scan of the chest abdomen pelvis revealed multifocal groundglass airspace opacities within the lungs concerning for acute infectious process such as atypical pneumonia. No acute intra-abdominal process. Extensive postsurgical changes to the lumbar spine. Computed tomography scan of the head and neck revealed no acute intracranial processes. No evidence of cervical spine fracture. Groundglass opacities seen again. Multi-level degenerative disc disease noted. ET scan of the lumbar spine revealed extensive postsurgical changes. Multilevel degenerative changes. No acute fractures. Of note, computed tomography scan of the chest dated 06/09/2022 did not reveal any evidence of groundglass opacities. She was maintaining O2 saturations in the low 90s on 2 L/m per nasal cannula. Afebrile. Hemodynamically stable. White count 8.8. Hemoglobin 11.1. Platelet count 90,000. Sodium 143. Potassium 4.7. Bicarb 20. BUN 38. Creatinine 1.46. Glucose 191. CK level 831. ProBNP 2050. Troponin negative 1. Urinalysis cloudy with 4+ glucose large amount of blood. Moderate leukocytes. High white count. Urine drug screen positive for opiates. [place] virus by PCR positive. She is seen today in consultation on the regular medical floor. She is currently resting fairly comfortably in bed. Awake and alert in no acute distress. She is a dry nonproductive cough. No fever or chills. No hemop tysis. She has been initiated on Decadron, vitamin supplements, Symbicort and albuterol. Progress note dated 06/16/2022. 66-year-old female seen in consultation yesterday. Please see the note above. She seen today in room 458. The patient states that she's feeling a bit better today. She is getting oxygen at 3 L by nasal cannula. The patient is not receiving any IV fluids. She does feel weak and fatigued. She has minimal cough. She's not coughing up any phlegm. No new laboratory data today other than a d-dimer of 2.83 glucose of 274. Chest x-ray from yesterday shows diffuse bilateral infiltrates. On today's evaluation of 06/17/2022, the patient is being seen for a follow-up. The patient remains on 5 L of oxygen by nasal cannula. She is gradually improving. She feels slightly better on today's evaluation. She continues to have some congested cough. She remains on Decadron 620 g IV every 24 hours. She is also on empiric antibiotic coverage IV cefepime. Otherwise, no other new complaints for now. The white suppositive 13.2 with hemoglobin 11.7 and a platelet count of 135. BUN is at 46 with a creatinine of 1.5 sugar slightly elevated because of steroids at 248. Sodium level is at 142. Most recent chest x-ray from 06/15/2022 showed bilateral interstitial pulmonary infiltrates/edema. She had a CT angiogram on 06/09/2022 that showed no other acute abnormalities. The lungs were essentially clear back then. Repeat CAT scan of the chest showed multifocal groundglass airspace disease and the patient tested positive for Covid 19. Note that the infiltrate developed over 5 days interval. This patient is also vaccinated and boosted for Covid 19. On today's evaluation of 06/18/2022, the patient is feeling better. She is currently on 4 L of oxygen by nasal cannula. Her pulse ox is currently in the order of 94%. She remains on Decadron 6 and a grams IV every 24 hours. Her pro calcitonin level was also elevated and she was covered with empiric antibiotics. The patient was initially given IV cefepime and Levaquin as broad-spectrum antibiotic coverage. Repeat pro-calcitonin level shows some mild interval improvement. The level is down to 6.47 from 7.77. Otherwise, no other significant events overnight. The last chest x-ray was done on 06/15/2022 that showed diffuse bilateral pulmonary infiltrates. The patient also has a pacer/defibrillator over the left anterior hemithorax. Objective - Vital Signs Vital signs: Vital Signs Temp 99.0 F 06/18/22 14:00 Pulse 60 06/18/22 14:00 Resp 18 06/18/22 14:00 BP 102/82 06/18/22 14:00 Pulse Ox 94 L 06/18/22 14:00 FiO2 Intake & Output 06/17/22 06/18/22 06/18/22 18:59 06:59 18:59 Other: Voiding Method Toilet Toilet # Voids 2 2 3 # Bowel Movements 1 - Exam No acute distress, oriented 3. Currently on 4 L of oxygen. HEENT examination is grossly unremarkable. Mucous membranes are moist. No oral lesions. Neck supple. Full range of motion. No adenopathy thyromegaly or neck vein dis tention. Cardiovascular examination reveals regular rhythm rate. S1-S2 normal. No S3 or S4. No discernible murmur noted. Heart sounds are distant. Lungs reveal scattered bilateral rhonchi. Breath sounds equal. No wheezes. Saturations are in the low 90s. Abdomen is obese. Bowel sounds are noted. No masses or tenderness. Extremities are intact. No cyanosis clubbing or edema. Skin is without rash or lesion. Neurologic examination is brief but nonfocal. - Labs CBC & Chem 7: 06/17/22 05:48 06/17/22 05:48 Labs: Abnormal Lab Results - Last 24 Hours (Table) 06/17/22 06/17/22 06/18/22 Range/Units 15:59 22:06 06:22 POC Glucose (mg/dL) 402 H 213 H 179 H (70-110) mg/dL 06/18/22 Range/Units 11:12 POC Glucose (mg/dL) 188 H (70-110) mg/dL Microbiology - Last 24 Hours (Table) 06/17/22 12:14 Gram Stain - Preliminary Sputum Sputum Culture - Preliminary Assessment and Plan Plan: Acute hypoxemic respiratory failure secondary to acute COVID-19 pneumonia. The patient developed diffuse groundglass pulmonary infiltrates based on the CAT scan of the chest that was done on 06/14/2022. She is currently on 5 L of oxygen by nasal cannula. D-dimer was at 2.8. Pro-calcitonin level was also elevated at 6.47 and this is most likely a viral pneumonia based on the CAT scan findings with the potential of a superinfection with bacteria and based on that the patient is on IV cefepime. The patient is also on Levaquin. There has been some mild interval drop in the pro calcitonin level. A repeat level will be obtained tomorrow. Recent discharge 06/11/2022 for COVID-19 infection. The patient tested positive for Covid 19 on 06/14/2022 and she was also positive on 06/08/2022. Generalized weakness and fall and on the ground at home for 2 days prior to arrival. Rhabdomyolysis with CK 831. Acute on chronic renal failure. History of chronic kidney disease stage III. Suspected urinary tract infection, culture pending. Acute exacerbation of chronic systolic congestive heart failure with an ejection fraction of 30-35%. Cardiomyopathy status post AICD placement. History of mild intermittent chronic bronchial asthma. History of obstructive sleep apnea maintained on BiPAP. Lifelong nonsmoker. History of anxiety/depression. Hyperlipidemia. Diabetes mellitus, type II. Diabetic neuropathy. History of kidney stones with previous sepsis. Poor overall functional performance based on the above-mentioned multiple comorbidities. Plan: Continue attempts to wean down FiO2 currently on 4 L of O2 nasal cannula Continue Decadron Recheck d-dimer is and LDH for the morning also check pro calcitonin level Continue IV cefepime and Levaquin Repeat chest x-ray in the morning Monitor renal function creatinine is stable for now We'll continue to follow
[2022-06-18 16:43] LABS: Glucose,Whole Blood 399 mg/dL (70-110)
[2022-06-18 20:48] LABS: Glucose,Whole Blood 321 mg/dL (70-110)
[2022-06-18] MEDS: ASPIRIN 81 MG PO SCH (20:54)
[2022-06-18] MEDS: ATORVASTATIN 20 MG TAB PO SCH (20:55)
[2022-06-18] MEDS: MAGNESIUM OXIDE 400 MG TAB PO SCH (20:55)
[2022-06-18] MEDS: TOPIRAMATE 25 MG TAB PO SCH (20:55)
[2022-06-18] MEDS: INSULIN DETEMIR (LEVEMIR) 100 UNIT/ML SYR SQ SCH (20:56)
[2022-06-19] MEDS: HEPARIN SODIUM,PORCINE/PF 5,000 UNIT/0.5 ML SYRINGE SQ SCH ×4 (00:03→23:29)
[2022-06-19] MEDS: FLUTICASONE 110 MCG INHALER INHALATION SCH ×3 (00:05→23:31)
[2022-06-19] MEDS: MECLIZINE 12.5 MG TAB PO SCH ×3 (01:17→17:01)
[2022-06-19 05:59] LABS: Glucose,Whole Blood 121 mg/dL (70-110)
[2022-06-19] MEDS: INSULIN ASPART (NovoLOG) 100 UNIT/ML VIAL SQ SCH ×3 (06:03→17:00)
[2022-06-19] MEDS: FERROUS SULFATE 325 MG TAB PO SCH (08:34)
[2022-06-19] MEDS: SERTRALINE 50 MG TAB PO SCH (08:34)
[2022-06-19] MEDS: DAPAGLIFLOZIN PROPANEDIOL 5 MG TABLET PO SCH (08:34)
[2022-06-19] MEDS: allopurinoL 100 MG TAB PO SCH (08:35)
[2022-06-19] MEDS: HYDROcodone/APAP 10-325MG 1 EACH TAB PO SCH ×4 (08:35→20:25)
[2022-06-19] MEDS: CYANOCOBALAMIN 500 MCG TAB PO SCH (08:35)
[2022-06-19] MEDS: MIDODRINE 5 MG TAB PO SCH ×3 (08:35→20:25)
[2022-06-19] MEDS: GABAPENTIN 300 MG CAP PO SCH ×4 (08:36→20:24)
[2022-06-19] MEDS: ASCORBIC ACID 500 MG TAB PO SCH (08:36)
[2022-06-19] MEDS: PANTOPRAZOLE 40 MG TABLET PO SCH (08:36)
[2022-06-19] MEDS: carvediloL 6.25 MG TAB PO SCH ×2 (08:36→20:25)
[2022-06-19] MEDS: FUROSEMIDE 40 MG TAB PO SCH (08:36)
[2022-06-19] MEDS: BENZONATATE 100 MG CAP PO SCH ×3 (08:36→20:24)
[2022-06-19] MEDS: DOCUSATE 100 MG CAP PO SCH (08:37)
[2022-06-19] MEDS: CEFEPIME 2 GM in SODIUM CHLORIDE 0.9% 100 ML IVPB SCH ×2 (08:37→20:26)
[2022-06-19] MEDS: DEXAMETHASONE SOD PHOSPHATE 10 MG/ML 1 ML VIAL IVP SCH (08:37)
[2022-06-19] MEDS: ZINC SULFATE 220 MG CAP PO SCH (08:37)
[2022-06-19] MEDS: LEVOFLOXACIN 250 MG TAB PO SCH (08:38)
[2022-06-19] MEDS: SYMBICORT 160-4.5 MCG INHALER INHALATION SCH ×2 (08:56→20:43)
[2022-06-19] MEDS: ALBUTEROL HFA INHALER INHALATION PRN ×3 (08:57→20:43)
--- NOTE | 2022-06-19 10:24 | XR ---
EXAMINATION TYPE: XR chest 1V portable DATE OF EXAM: 06/19/2022 7:58 AM COMPARISON: Chest radiographs from 06/15/2022 TECHNIQUE: XR chest 1V portable Portable AP radiograph of the chest. CLINICAL INDICATION:Female, 66 years old with history of COVID; FINDINGS: Lungs/Pleura: No pleural effusion or pneumothorax. Elevation of the right hemidiaphragm redemonstrate d. Slightly improved multifocal patchy bilateral airspace opacities. Heart/mediastinum: Cardiomediastinal silhouette is enlarged and stable. Atherosclerotic calcificatio ns are seen in the aorta. Three lead cardiac conduction device overlying the left hemithorax with leticia d tips projecting over the right ventricle, right atrium and coronary sinus. Musculoskeletal: No acute osseous pathology. Degenerative changes of the visualized spine. IMPRESSION: Slightly improved bilateral multifocal edema and/or infiltrates noted.
[2022-06-19 11:07] VITALS: BMI 38.2
[2022-06-19 11:25] LABS: Glucose,Whole Blood 191 mg/dL (70-110)
[2022-06-19 13:52] LABS: C Reactive Protein 7.2 mg/dL (0.00-0.80)
--- NOTE | 2022-06-19 15:30 | P.PN ---
Subjective Progress Note Date: 06/19/22 Principal diagnosis: Covid 19 pneumonia Patient is a 66-year-old female with multiple comorbidities including asthma diabetes hypertension hyperlipidemia she was recently admitted to this facility diagnosed and treated for COVID-19 patient now presented to the hospital after the patient did have a fall in his feet on the ground for 48 hour before patient was brought to the hospital CT did shows multifocal opacity concerning for atypical pneumonia. On today's evaluation that is 06/19/2022, the patient remains to be afebrile, patient is breathing comfortably and is down to 4 L nasal cannula oxygen patient denies chest pain , the patient cough has decreased intensity and mostly dry in nature, the patient denies nausea no vomiting and abdominal pain no diarrhea Objective - Vital Signs Vital signs: Vital Signs Temp 98.0 F 06/19/22 07:57 Pulse 58 L 06/19/22 07:57 Resp 17 06/19/22 00:52 BP 122/76 06/19/22 07:57 Pulse Ox 93 L 06/19/22 08:57 FiO2 Intake & Output 06/18/22 06/19/22 06/19/22 18:59 06:59 18:59 Intake Total 240 Balance 240 Weight 104.326 kg Intake: Oral 240 Other: Voiding Method Toilet Toilet # Voids 2 3 - Exam GENERAL DESCRIPTION: An elderly female up in the chair in no distress RESPIRATORY SYSTEM: Unlabored breathing , decreased breath sounds at bases HEART: S1 S2 regular rate and rhythm , ABDOMEN: Soft , no tenderness EXTREMITIES: No edema feet - Labs CBC & Chem 7: 06/17/22 05:48 06/17/22 05:48 Labs: Abnormal Lab Results - Last 24 Hours (Table) 06/18/22 06/18/22 06/19/22 Range/Units 16:41 20:42 05:38 POC Glucose (mg/dL) 399 H 321 H (70-110) mg/dL Lactate Dehydrogenase (120-246) U/L C-Reactive Protein (0.00-0.80) mg/dL Procalcitonin 1.29 H (0.02-0.09) ng/mL 06/19/22 06/19/22 06/19/22 Range/Units 05:38 05:56 11:23 POC Glucose (mg/dL) 121 H 191 H (70-110) mg/dL Lactate Dehydrogenase 451 H (120-246) U/L C-Reactive Protein 7.20 H (0.00-0.80) mg/dL Procalcitonin (0.02-0.09) ng/mL Microbiology - Last 24 Hours (Table) 06/17/22 12:14 Gram Stain - Final Sputum Sputum Culture - Final Assessment and Plan (1) Pneumonia due to COVID-19 virus Current Visit: Yes Status: Acute Code(s): U07.1 - COVID-19; J12.82 - PNEUMONIA DUE TO CORONAVIRUS DISEASE 2018 SNOMED Code(s): 812591673399702072 Plan: 1patient presented to hospital with a weakness and did have a fall in this patient with recent diagnosis of COVID-19 about 10 days ago patient did not have any acute infiltrate on chest x-ray on the CT on her last visit however CT this admission is showing multifocal infiltrate suggestive of atypical pneumonia patient did have mild elevated white count however the patient did have elevated will consider a 6.17 2-mildly positive UA however no significant urinary symptoms 3-patient sputum for Gram stain and culture has been usual respiratory rosendo, chest x-ray from this morning shows some improvement , patient to continue with cefepime and monitor clinical course closely Time with Patient: Less than 30
[2022-06-19 16:19] LABS: Glucose,Whole Blood 319 mg/dL (70-110)
--- NOTE | 2022-06-19 18:45 | P.PN ---
Subjective Progress Note Date: 06/19/22 This is a 66-year-old female patient with a history of mild intermittent chronic bronchial asthma, diabetes mellitus type 2, hyperlipidemia, obstructive sleep apnea maintained on BiPAP, cardiomyopathy status post AICD placement, anxiety/depression, chronic kidney disease stage III, bilateral neuropathy of the lower extremities. Lifelong nonsmoker. No home oxygen. She was recently discharged from here on 06/09/2022 after being admitted for CoVID 19 infection treated with Decadron and multivitamin and discharged on 06/11/2022. The patient states on June 12 she fell at home and was unable to get herself up or call for help. She denied any loss of consciousness. Denied any injury. She was down for 2 days before she was able to get to phone and call EMS. Seen here in the emergency room on 06/14/2022. X-ray of the pelvis revealed no evidence of fracture. Computed tomography scan of the chest abdomen pelvis revealed multifocal groundglass airspace opacities within the lungs concerning for acute infectious process such as atypical pneumonia. No acute intra-abdominal process. Extensive postsurgical changes to the lumbar spine. Computed tomography scan of the head and neck revealed no acute intracranial processes. No evidence of cervical spine fracture. Groundglass opacities seen again. Multi-level degenerative disc disease noted. ET scan of the lumbar spine revealed extensive postsurgical changes. Multilevel degenerative changes. No acute fractures. Of note, computed tomography scan of the chest dated 06/09/2022 did not reveal any evidence of groundglass opacities. She was maintaining O2 saturations in the low 90s on 2 L/m per nasal cannula. Afebrile. Hemodynamically stable. White count 8.8. Hemoglobin 11.1. Platelet count 90,000. Sodium 143. Potassium 4.7. Bicarb 20. BUN 38. Creatinine 1.46. Glucose 191. CK level 831. ProBNP 2050. Troponin negative 1. Urinalysis cloudy with 4+ glucose large amount of blood. Moderate leukocytes. High white count. Urine drug screen positive for opiates. [place] virus by PCR positive. She is seen today in consultation on the regular medical floor. She is currently resting fairly comfortably in bed. Awake and alert in no acute distress. She is a dry nonproductive cough. No fever or chills. No hemop tysis. She has been initiated on Decadron, vitamin supplements, Symbicort and albuterol. Progress note dated 06/16/2022. 66-year-old female seen in consultation yesterday. Please see the note above. She seen today in room 458. The patient states that she's feeling a bit better today. She is getting oxygen at 3 L by nasal cannula. The patient is not receiving any IV fluids. She does feel weak and fatigued. She has minimal cough. She's not coughing up any phlegm. No new laboratory data today other than a d-dimer of 2.83 glucose of 274. Chest x-ray from yesterday shows diffuse bilateral infiltrates. On today's evaluation of 06/17/2022, the patient is being seen for a follow-up. The patient remains on 5 L of oxygen by nasal cannula. She is gradually improving. She feels slightly better on today's evaluation. She continues to have some congested cough. She remains on Decadron 620 g IV every 24 hours. She is also on empiric antibiotic coverage IV cefepime. Otherwise, no other new complaints for now. The white suppositive 13.2 with hemoglobin 11.7 and a platelet count of 135. BUN is at 46 with a creatinine of 1.5 sugar slightly elevated because of steroids at 248. Sodium level is at 142. Most recent chest x-ray from 06/15/2022 showed bilateral interstitial pulmonary infiltrates/edema. She had a CT angiogram on 06/09/2022 that showed no other acute abnormalities. The lungs were essentially clear back then. Repeat CAT scan of the chest showed multifocal groundglass airspace disease and the patient tested positive for Covid 19. Note that the infiltrate developed over 5 days interval. This patient is also vaccinated and boosted for Covid 19. On today's evaluation of 06/18/2022, the patient is feeling better. She is currently on 4 L of oxygen by nasal cannula. Her pulse ox is currently in the order of 94%. She remains on Decadron 6 and a grams IV every 24 hours. Her pro calcitonin level was also elevated and she was covered with empiric antibiotics. The patient was initially given IV cefepime and Levaquin as broad-spectrum antibiotic coverage. Repeat pro-calcitonin level shows some mild interval improvement. The level is down to 6.47 from 7.77. Otherwise, no other significant events overnight. The last chest x-ray was done on 06/15/2022 that showed diffuse bilateral pulmonary infiltrates. The patient also has a pacer/defibrillator over the left anterior hemithorax. 06/19/2022, patient remains on 4 L of oxygen by nasal cannula. Chest x-ray from today shows slight improvement in the bilateral multifocal interstitial infil trates. She is doing well. No specific complaints. Note that her pro- calcitonin level was also elevated and for that reason we opted to give the patient systemic/IV antibiotics and she was being treated with a combination of cefepime and Levaquin. Follow-up pro-calcitonin level is also improving and the level is down to 1.29. Otherwise, no other new complaints for now. She is on oxygen at 4 L/m nasal cannula. She is also on Symbicort, albuterol HFA, and her steroids are in the form of Decadron 6 mg IV every 24 hours and she is going to take that for the next 10 days. No other significant issues for now. She is overall weak. We are looking into rehabilitation placement and [facility] the [place] Objective - Vital Signs Vital signs: Vital Signs Temp 97.8 F 06/19/22 14:33 Pulse 62 06/19/22 14:33 Resp 19 06/19/22 14:33 BP 129/77 06/19/22 14:33 Pulse Ox 95 06/19/22 14:33 FiO2 Intake & Output 06/18/22 06/19/22 06/19/22 18:59 06:59 18:59 Intake Total 240 Balance 240 Weight 104.326 kg Intake: Oral 240 Other: Voiding Method Toilet Toilet # Voids 2 3 1 - Exam No acute distress, oriented 3. Currently on 4 L of oxygen. HEENT examination is grossly unremarkable. Mucous membranes are moist. No oral lesions. Neck supple. Full range of motion. No adenopathy thyromegaly or neck vein distention. Cardiovascular examination reveals regular rhythm rate. S1-S2 normal. No S3 or S4. No discernible murmur noted. Heart sounds are distant. Lungs reveal scattered bilateral rhonchi. Breath sounds equal. No wheezes. Saturations are in the low 90s. Abdomen is obese. Bowel sounds are noted. No masses or tenderness. Extremities are intact. No cyanosis clubbing or edema. Skin is without rash or lesion. Neurologic examination is brief but nonfocal. - Labs CBC & Chem 7: 06/17/22 05:48 06/17/22 05:48 Labs: Abnormal Lab Results - Last 24 Hours (Table) 06/18/22 06/19/22 06/19/22 Range/Units 20:42 05:38 05:38 POC Glucose (mg/dL) 321 H (70-110) mg/dL Lactate Dehydrogenase 451 H (120-246) U/L C-Reactive Protein 7.20 H (0.00-0.80) mg/dL Procalcitonin 1.29 H (0.02-0.09) ng/mL 06/19/22 06/19/22 06/19/22 Range/Units 05:56 11:23 16:18 POC Glucose (mg/dL) 121 H 191 H 319 H (70-110) mg/dL Lactate Dehydrogenase (120-246) U/L C-Reactive Protein (0.00-0.80) mg/dL Procalcitonin (0.02-0.09) ng/mL Microbiology - Last 24 Hours (Table) 06/17/22 12:14 Gram Stain - Final Sputum Sputum Culture - Final Assessment and Plan Plan: Acute hypoxemic respiratory failure secondary to acute COVID-19 pneumonia. The patient developed diffuse groundglass pulmonary infiltrates based on the CAT scan of the chest that was done on 06/14/2022. She is currently on 5 L of oxygen by nasal cannula. D-dimer was at 2.8. Pro-calcitonin level was also elevated at 6.47 and this is most likely a viral pneumonia based on the CAT scan findings with the potential of a superinfection with bacteria and based on that the patient is on IV cefepime. The patient is also on Levaquin. There has been some mild interval drop in the pro calcitonin level. A repeat pro-calcitonin level is improving. Repeat chest x-ray shows improvement in the interstitial infiltrates noted bilaterally. Recent discharge 06/11/2022 for COVID-19 infection. The patient tested positive for Covid 19 on 06/14/2022 and she was also positive on 06/08/2022. Generalized weakness and fall and on the ground at home for 2 days prior to arrival. Rhabdomyolysis with CK 831. Acute on chronic renal failure. History of chronic kidney disease stage III. Suspected urinary tract infection, culture pending. Acute exacerbation of chronic systolic congestive heart failure with an ejection fraction of 30-35%. Cardiomyopathy status post AICD placement. History of mild intermittent chronic bronchial asthma. History of obstructive sleep apnea maintained on BiPAP. Lifelong nonsmoker. History of anxiety/depression. Hyperlipidemia. Diabetes mellitus, type II. Diabetic neuropathy. History of kidney stones with previous sepsis. Poor overall functional performance based on the above-mentioned multiple comorbidities. Plan: Continue attempts to wean down FiO2 currently on 4 L of O2 nasal cannula Continue Decadron, completed a total of 10 day course Recheck d-dimer is and LDH for the morning also check pro calcitonin level, lev els are improving Continue IV cefepime and Levaquin Repeat chest x-ray in the morning was noted and a chest x-ray levels are also improving Monitor renal function creatinine is stable for now We'll continue to follow Discharge planning is in progress
[2022-06-19] MEDS: TOPIRAMATE 25 MG TAB PO SCH (20:24)
[2022-06-19] MEDS: ATORVASTATIN 20 MG TAB PO SCH (20:24)
[2022-06-19] MEDS: INSULIN DETEMIR (LEVEMIR) 100 UNIT/ML SYR SQ SCH (20:24)
[2022-06-19] MEDS: ASPIRIN 81 MG PO SCH (20:24)
[2022-06-19 20:25] LABS: Glucose,Whole Blood 290 mg/dL (70-110)
[2022-06-19] MEDS: MAGNESIUM OXIDE 400 MG TAB PO SCH (20:25)
[2022-06-20] MEDS: MECLIZINE 12.5 MG TAB PO SCH ×2 (02:50→10:24)
[2022-06-20 06:53] LABS: Glucose,Whole Blood 108 mg/dL (70-110)
[2022-06-20] MEDS: INSULIN ASPART (NovoLOG) 100 UNIT/ML VIAL SQ SCH ×2 (07:05→12:17)
--- NOTE | 2022-06-20 07:37 | PN ---
PROGRESS NOTE Discharge per Cardiology, Pulmonary. She needs to stay on the broad-spectrum antibiotics for possible pneumonia. Switch to oral Ceftin on discharge per Dr. Yang. Possibly discharge home tomorrow. Get oxygen at home. OBJECTIVE: CARDIOVASCULAR: S1, S2. LUNGS: Scattered rhonchi and wheeze. HEMATOLOGY: Negative Homans. Acute on chronic hypoxemic respiratory distress. Continue broad-spectrum antibiotics with oral Ceftin on discharge. Continue on medications . Continue on other home medications. PROGNOSIS: Guarded. Discharge home tomorrow. MMODL / IJN: [id number] /
[2022-06-20] MEDS: carvediloL 6.25 MG TAB PO SCH (07:54)
[2022-06-20] MEDS: allopurinoL 100 MG TAB PO SCH (07:54)
[2022-06-20] MEDS: DAPAGLIFLOZIN PROPANEDIOL 5 MG TABLET PO SCH (07:54)
[2022-06-20] MEDS: CYANOCOBALAMIN 500 MCG TAB PO SCH (07:54)
[2022-06-20] MEDS: DOCUSATE 100 MG CAP PO SCH (07:54)
[2022-06-20] MEDS: SERTRALINE 50 MG TAB PO SCH (07:55)
[2022-06-20] MEDS: PANTOPRAZOLE 40 MG TABLET PO SCH (07:55)
[2022-06-20] MEDS: ZINC SULFATE 220 MG CAP PO SCH (07:55)
[2022-06-20] MEDS: FUROSEMIDE 40 MG TAB PO SCH (07:55)
[2022-06-20] MEDS: BENZONATATE 100 MG CAP PO SCH ×2 (07:55→16:03)
[2022-06-20] MEDS: MIDODRINE 5 MG TAB PO SCH ×2 (07:55→16:03)
[2022-06-20] MEDS: HEPARIN SODIUM,PORCINE/PF 5,000 UNIT/0.5 ML SYRINGE SQ SCH ×2 (07:55→16:03)
[2022-06-20] MEDS: LEVOFLOXACIN 250 MG TAB PO SCH (07:55)
[2022-06-20] MEDS: GABAPENTIN 300 MG CAP PO SCH ×2 (07:55→12:17)
[2022-06-20] MEDS: FERROUS SULFATE 325 MG TAB PO SCH (07:55)
[2022-06-20] MEDS: ASCORBIC ACID 500 MG TAB PO SCH (07:55)
[2022-06-20] MEDS: HYDROcodone/APAP 10-325MG 1 EACH TAB PO SCH ×2 (07:56→12:17)
[2022-06-20] MEDS: ALBUTEROL HFA INHALER INHALATION PRN (09:57)
[2022-06-20] MEDS: SYMBICORT 160-4.5 MCG INHALER INHALATION SCH (09:58)
[2022-06-20] MEDS: CEFEPIME 2 GM in SODIUM CHLORIDE 0.9% 100 ML IVPB SCH (10:24)
[2022-06-20] MEDS: DEXAMETHASONE SOD PHOSPHATE 10 MG/ML 1 ML VIAL IVP SCH (10:30)
[2022-06-20 11:20] LABS: Glucose,Whole Blood 232 mg/dL (70-110)
--- NOTE | 2022-06-20 13:20 | P.PN ---
Subjective Progress Note Date: 06/20/22 Principal diagnosis: Covid 19 pneumonia Patient is a 66-year-old female with multiple comorbidities including asthma diabetes hypertension hyperlipidemia she was recently admitted to this facility diagnosed and treated for COVID-19 patient now presented to the hospital after the patient did have a fall in his feet on the ground for 48 hour before patient was brought to the hospital CT did shows multifocal opacity concerning for atypical pneumonia. On today's evaluation that is 06/20/2022, the patient continues to be afebrile, patient is breathing comfortably on 4 L nasal cannula oxygen patient denies chest pain , the patient cough has decreased intensity and not bringing up any sputum, the patient denies nausea no vomiting and abdominal pain no diarrhea Objective - Vital Signs Vital signs: Vital Signs Temp 98.5 F 06/20/22 07:37 Pulse 65 06/20/22 07:37 Resp 20 06/20/22 07:37 BP 103/63 06/20/22 07:37 Pulse Ox 93 L 06/20/22 09:58 FiO2 Intake & Output 06/19/22 06/20/22 06/20/22 18:59 06:59 18:59 Intake Total 240 Balance 240 Weight 104.326 kg Intake: Oral 240 Other: Voiding Method Toilet # Voids 1 3 - Exam GENERAL DESCRIPTION: An elderly female up in the chair in no distress RESPIRATORY SYSTEM: Unlabored breathing , decreased breath sounds at bases HEART: S1 S2 regular rate and rhythm , ABDOMEN: Soft , no tenderness EXTREMITIES: No edema feet - Labs CBC & Chem 7: 06/17/22 05:48 06/17/22 05:48 Labs: Abnormal Lab Results - Last 24 Hours (Table) 06/19/22 06/19/22 06/19/22 Range/Units 05:38 05:38 16:18 POC Glucose (mg/dL) 319 H (70-110) mg/dL Lactate Dehydrogenase 451 H (120-246) U/L C-Reactive Protein 7.20 H (0.00-0.80) mg/dL Procalcitonin 1.29 H (0.02-0.09) ng/mL 06/19/22 06/20/22 Range/Units 20:23 11:19 POC Glucose (mg/dL) 290 H 232 H (70-110) mg/dL Lactate Dehydrogenase (120-246) U/L C-Reactive Protein (0.00-0.80) mg/dL Procalcitonin (0.02-0.09) ng/mL Microbiology - Last 24 Hours (Table) 06/17/22 12:14 Gram Stain - Final Sputum Sputum Culture - Final Assessment and Plan (1) Pneumonia due to COVID-19 virus Current Visit: Yes Status: Acute Code(s): U07.1 - COVID-19; J12.82 - PNEUMONIA DUE TO CORONAVIRUS DISEASE 2018 SNOMED Code(s): 509588034443853438 Plan: 1patient presented to hospital with a weakness and did have a fall in this patient with recent diagnosis of COVID-19 about 10 days ago patient did not have any acute infiltrate on chest x-ray on the CT on her last visit however CT this admission is showing multifocal infiltrate suggestive of atypical pneumonia patient did have mild elevated white count however the patient did have elevated will consider a 6.17 2-mildly positive UA however no significant urinary symptoms 3-patient sputum for Gram stain and culture has been usual respiratory rosendo, chest x-ray repeat shows some improvement , patient to continue with cefepime and will finish therapy with a short course of oral Ceftin discussed with admitting physician Time with Patient: Less than 30
--- NOTE | 2022-06-20 13:57 | DS ---
DISCHARGE SUMMARY HISTORY OF PRESENT ILLNESS: A 66-year-old white female came with acute respiratory failure with bilateral pneumonia with chronic hypoxemic failure secondary to community-acquired pneumonia and COVID pneumonia. The patient ended up in fall, dehydration, mild rhabdomyolysis was rehydrated, started on antibiotics for pneumonia and treatment for COVID. Improved with fluids. Has a prerenal azotemia, some rhabdomyolysis. Patient continued to improve and she will need physical therapy with rehab center. She was seen by back doctor for lumbar stenosis. Recent lumbar surgery physical therapy there and they are under Dr. Vishal Snell's care. Diet as tolerated. PT OT. HOME MEDICATIONS: 1. Omnicef 300 b.i.d. 2. Vitamin C 1000 daily. 3. Ecotrin 81 daily. 4. Singulair 10 daily. 5. Lipitor 20 daily. 6. Coreg 6.25 b.i.d. 7. Rocaltrol 0.25 mcg once a week. 8. Pulmicort 2 puffs b.i.d. 9. Ventolin HFA 2 puffs q.i.d. 10.Vitamin D 5000 international units daily. 11.Ferrous sulfate 325 daily. 12.Bentyl 100 mg t.i.d. for cough. 13.Zestril 2.5 mg daily. 14.Gabapentin 600 q.i.d. 15.B12 1000 daily. 16.Symbicort 160/4.5 two puffs b.i.d. CONDITION: Stable, under Dr. Vishal Snell's care. PROGNOSIS: Guarded. AMBULATE: As tolerated. MMODL / IJN: [id number] /
--- NOTE | 2022-06-20 15:12 | P.PN ---
Subjective Progress Note Date: 06/20/22 This is a 66-year-old female patient with a history of mild intermittent chronic bronchial asthma, diabetes mellitus type 2, hyperlipidemia, obstructive sleep apnea maintained on BiPAP, cardiomyopathy status post AICD placement, anxiety/depression, chronic kidney disease stage III, bilateral neuropathy of the lower extremities. Lifelong nonsmoker. No home oxygen. She was recently discharged from here on 06/09/2022 after being admitted for CoVID 19 infection treated with Decadron and multivitamin and discharged on 06/11/2022. The patient states on June 12 she fell at home and was unable to get herself up or call for help. She denied any loss of consciousness. Denied any injury. She was down for 2 days before she was able to get to phone and call EMS. Seen here in the emergency room on 06/14/2022. X-ray of the pelvis revealed no evidence of fracture. Computed tomography scan of the chest abdomen pelvis revealed multifocal groundglass airspace opacities within the lungs concerning for acute infectious process such as atypical pneumonia. No acute intra-abdominal process. Extensive postsurgical changes to the lumbar spine. Computed tomography scan of the head and neck revealed no acute intracranial processes. No evidence of cervical spine fracture. Groundglass opacities seen again. Multi-level degenerative disc disease noted. ET scan of the lumbar spine revealed extensive postsurgical changes. Multilevel degenerative changes. No acute fractures. Of note, computed tomography scan of the chest dated 06/09/2022 did not reveal any evidence of groundglass opacities. She was maintaining O2 saturations in the low 90s on 2 L/m per nasal cannula. Afebrile. Hemodynamically stable. White count 8.8. Hemoglobin 11.1. Platelet count 90,000. Sodium 143. Potassium 4.7. Bicarb 20. BUN 38. Creatinine 1.46. Glucose 191. CK level 831. ProBNP 2050. Troponin negative 1. Urinalysis cloudy with 4+ glucose large amount of blood. Moderate leukocytes. High white count. Urine drug screen positive for opiates. Lima virus by PCR positive. She is seen today in consultation on the regular medical floor. She is currently resting fairly comfortably in bed. Awake and alert in no acute distress. She is a dry nonproductive cough. No fever or chills. No hemop tysis. She has been initiated on Decadron, vitamin supplements, Symbicort and albuterol. Progress note dated 06/16/2022. 66-year-old female seen in consultation yesterday. Please see the note above. She seen today in room 458. The patient states that she's feeling a bit better today. She is getting oxygen at 3 L by nasal cannula. The patient is not receiving any IV fluids. She does feel weak and fatigued. She has minimal cough. She's not coughing up any phlegm. No new laboratory data today other than a d-dimer of 2.83 glucose of 274. Chest x-ray from yesterday shows diffuse bilateral infiltrates. On today's evaluation of 06/17/2022, the patient is being seen for a follow-up. The patient remains on 5 L of oxygen by nasal cannula. She is gradually improving. She feels slightly better on today's evaluation. She continues to have some congested cough. She remains on Decadron 620 g IV every 24 hours. She is also on empiric antibiotic coverage IV cefepime. Otherwise, no other new complaints for now. The white suppositive 13.2 with hemoglobin 11.7 and a platelet count of 135. BUN is at 46 with a creatinine of 1.5 sugar slightly elevated because of steroids at 248. Sodium level is at 142. Most recent chest x-ray from 06/15/2022 showed bilateral interstitial pulmonary infiltrates/edema. She had a CT angiogram on 06/09/2022 that showed no other acute abnormalities. The lungs were essentially clear back then. Repeat CAT scan of the chest showed multifocal groundglass airspace disease and the patient tested positive for Covid 19. Note that the infiltrate developed over 5 days interval. This patient is also vaccinated and boosted for Covid 19. On today's evaluation of 06/18/2022, the patient is feeling better. She is currently on 4 L of oxygen by nasal cannula. Her pulse ox is currently in the order of 94%. She remains on Decadron 6 and a grams IV every 24 hours. Her pro calcitonin level was also elevated and she was covered with empiric antibiotics. The patient was initially given IV cefepime and Levaquin as broad-spectrum antibiotic coverage. Repeat pro-calcitonin level shows some mild interval improvement. The level is down to 6.47 from 7.77. Otherwise, no other significant events overnight. The last chest x-ray was done on 06/15/2022 that showed diffuse bilateral pulmonary infiltrates. The patient also has a pacer/defibrillator over the left anterior hemithorax. 06/19/2022, patient remains on 4 L of oxygen by nasal cannula. Chest x-ray from today shows slight improvement in the bilateral multifocal interstitial infil trates. She is doing well. No specific complaints. Note that her pro- calcitonin level was also elevated and for that reason we opted to give the patient systemic/IV antibiotics and she was being treated with a combination of cefepime and Levaquin. Follow-up pro-calcitonin level is also improving and the level is down to 1.29. Otherwise, no other new complaints for now. She is on oxygen at 4 L/m nasal cannula. She is also on Symbicort, albuterol HFA, and her steroids are in the form of Decadron 6 mg IV every 24 hours and she is going to take that for the next 10 days. No other significant issues for now. She is overall weak. We are looking into rehabilitation placement and [facility] on the [facility] 06/20/2022, the patient is stable at 47 with a nasal cannula. No new complaints. Her condition is stable. Repeat pro-calcitonin level shows improvement in the level down to 1.29. No other labs are available from today. The patient remains on Decadron. The patient's is currently on Omnicef 300 mg by mouth twice a day. No other new complaints otherwise for now. Objective - Vital Signs Vital signs: Vital Signs Temp 98.5 F 06/20/22 07:37 Pulse 65 06/20/22 07:37 Resp 20 06/20/22 07:37 BP 103/63 06/20/22 07:37 Pulse Ox 93 L 06/20/22 09:58 FiO2 Intake & Output 06/19/22 06/20/22 06/20/22 18:59 06:59 18:59 Intake Total 240 Balance 240 Weight 104.326 kg Intake: Oral 240 Other: Voiding Method Toilet # Voids 1 3 - Exam No acute distress, oriented 3. Currently on 4 L of oxygen. HEENT examination is grossly unremarkable. Mucous membranes are moist. No oral lesions. Neck supple. Full range of motion. No adenopathy thyromegaly or neck vein distention. Cardiovascular examination reveals regular rhythm rate. S1-S2 normal. No S3 or S4. No discernible murmur noted. Heart sounds are distant. Lungs reveal scattered bilateral rhonchi. Breath sounds equal. No wheezes. Saturations are in the low 90s. Abdomen is obese. Bowel sounds are noted. No masses or tenderness. Extremities are intact. No cyanosis clubbing or edema. Skin is without rash or lesion. Neurologic examination is brief but nonfocal. - Labs CBC & Chem 7: 06/17/22 05:48 06/17/22 05:48 Labs: Abnormal Lab Results - Last 24 Hours (Table) 06/19/22 06/19/22 06/19/22 Range/Units 05:38 05:38 16:18 POC Glucose (mg/dL) 319 H (70-110) mg/dL Lactate Dehydrogenase 451 H (120-246) U/L C-Reactive Protein 7.20 H (0.00-0.80) mg/dL Procalcitonin 1.29 H (0.02-0.09) ng/mL 06/19/22 06/20/22 Range/Units 20:23 11:19 POC Glucose (mg/dL) 290 H 232 H (70-110) mg/dL Lactate Dehydrogenase (120-246) U/L C-Reactive Protein (0.00-0.80) mg/dL Procalcitonin (0.02-0.09) ng/mL Microbiology - Last 24 Hours (Table) 06/17/22 12:14 Gram Stain - Final Sputum Sputum Culture - Final Assessment and Plan Plan: Acute hypoxemic respiratory failure secondary to acute COVID-19 pneumonia. The patient developed diffuse groundglass pulmonary infiltrates based on the CAT scan of the chest that was done on 06/14/2022. She is currently on 5 L of oxygen by nasal cannula. D-dimer was at 2.8. Pro-calcitonin level was also elevated at 6.47 and this is most likely a viral pneumonia based on the CAT scan findings with the potential of a superinfection with bacteria and based on that the patient is on IV cefepime. The patient is also on Levaquin. There has been some mild interval drop in the pro calcitonin level. A repeat pro-calcitonin level is improving. Repeat chest x-ray shows improvement in the interstitial infiltrates noted bilaterally. Recent discharge 06/11/2022 for COVID-19 infection. The patient tested positive for Covid 19 on 06/14/2022 and she was also positive on 06/08/2022. Generalized weakness and fall and on the ground at home for 2 days prior to arrival. Rhabdomyolysis with CK 831. Acute on chronic renal failure. History of chronic kidney disease stage III. Suspected urinary tract infection, culture pending. Acute exacerbation of chronic systolic congestive heart failure with an ejection fraction of 30-35%. Cardiomyopathy status post AICD placement. History of mild intermittent chronic bronchial asthma. History of obstructive sleep apnea maintained on BiPAP. Lifelong nonsmoker. History of anxiety/depression. Hyperlipidemia. Diabetes mellitus, type II. Diabetic neuropathy. History of kidney stones with previous sepsis. Poor overall functional performance based on the above-mentioned multiple com orbidities. Plan: Condition is stable and the patient's condition is stable. Pro-calcitonin level dropped Continue attempts to wean down FiO2 currently on 4 L of O2 nasal cannula Continue Decadron, completed a total of 10 day course Recheck d-dimer is and LDH for the morning also check pro calcitonin level, levels are improving The patient has been switched to Omnicef 300 mg by mouth twice a day Condition stable. Discharge planning is in progress. Pulmonary critical care services will sign off.
[2022-06-20 15:14] VITALS: PULSE 64; RESP 16; TEMP 98.4
[2022-06-20 16:07] VITALS: BP 117/76
[2022-06-20 16:21] LABS: Glucose,Whole Blood 377 mg/dL (70-110)
[2022-06-20] MEDS ORDERED: CEFDINIR 300 MG CAP PO SCH (21:00)
--- NOTE | 2022-06-23 07:34 | DS ---
DISCHARGE SUMMARY CONTINUATION: DISCHARGE MEDICATIONS: 1. Dupree 10/325 one q.i.d. 2. Zoloft 50 mg 1 daily. 3. Topamax 50 mg nightly. 4. Furosemide 40 mg 1 p.o. daily. 5. Zinc sulfate 220 mg 1 a day. 6. Dexamethasone 6 mg tablet once a day for 10 days. 7. Colace 100 mg once a day. 8. Mag oxide 1000 mg daily. 9. Meclizine 12.5 mg q.8 hours p.r.n. for dizziness. 10.Farxiga 5 mg one daily. 11.Levemir insulin 20 units subcu daily. 12.Accu-Chek protocol for Humalog before meals t.i.d. plus . 13.Allopurinol 100 mg daily. 14.Pantoprazole 40 mg daily. 15.Tessalon Perles 100 mg t.i.d. 16.Singulair. 17.Montelukast 10 mg daily. 18.Calcitriol 0.25 mcg daily. 19. . MMADRIANNAL / IJN: [id number] /
[2022-06-30] MEDS ORDERED: ERGOCALCIFEROL 1,250 MCG (50,000 IU) CAPSULE PO SCH (09:00)
== END 2022-06-20 17:00 | DRG 177 ==
LOC: EC 13:28 → 4SSUR 18:10
PROVIDERS: ADMIT Family Medicine; ATTEND Family Medicine
PROC: 8E0ZXY6 Isolation (ICD-10-PCS; principal; 2022-06-14)
DX: U07.1 COVID-19 (principal); I50.23 Acute on chronic systolic (congestive) heart failure; J12.82 Pneumonia due to coronavirus disease 2019; J96.21 Acute and chronic respiratory failure with hypoxia; N17.9 Acute kidney failure, unspecified; M62.82 Rhabdomyolysis; J44.0 Chronic obstructive pulmonary disease with (acute) lower respiratory infection; N39.0 Urinary tract infection, site not specified; I42.9 Cardiomyopathy, unspecified; I13.0 Hypertensive heart and chronic kidney disease with heart failure and stage 1 through stage 4 chronic kidney disease, or unspecified chronic kidney disease; M54.50 Low back pain, unspecified; E86.0 Dehydration; W06.XXXA Fall from bed, initial encounter; M48.061 Spinal stenosis, lumbar region without neurogenic claudication; K21.9 Gastro-esophageal reflux disease without esophagitis; N18.30 Chronic kidney disease, stage 3 unspecified; M54.16 Radiculopathy, lumbar region; Y92.019 Unspecified place in single-family (private) house as the place of occurrence of the external cause; M41.9 Scoliosis, unspecified; J45.20 Mild intermittent asthma, uncomplicated; G89.29 Other chronic pain; E78.5 Hyperlipidemia, unspecified; G47.33 Obstructive sleep apnea (adult) (pediatric); E61.1 Iron deficiency; E11.40 Type 2 diabetes mellitus with diabetic neuropathy, unspecified; E11.22 Type 2 diabetes mellitus with diabetic chronic kidney disease; F41.9 Anxiety disorder, unspecified; F32.A Depression, unspecified; Z87.440 Personal history of urinary (tract) infections; Z96.653 Presence of artificial knee joint, bilateral; Z95.810 Presence of automatic (implantable) cardiac defibrillator; Z79.899 Other long term (current) drug therapy; Z79.84 Long term (current) use of oral hypoglycemic drugs; Z79.51 Long term (current) use of inhaled steroids; Z79.4 Long term (current) use of insulin
CPT/HCPCS: 36415; 70450; 71045; 71250; 72125; 72128; 72131; 72170; 74176; 80048; 80053; 80306; 80320; 81001; 82550; 83036; 83605; 83615; 83880; 84145; 84484; 85025; 85379; 85610; 85730; 86140; 86850; 86900; 86901; 87070; 87205; 87635; 93005; 94640; 94760; 96361; 96374; 96375; 96376; 99291

== ENCOUNTER 2022-08-29 08:01 | Day surgery (SDC) | payer MEDICARE, OTHER ==
[2022-08-29] MEDS ORDERED: diazePAM 5 MG TAB PO PRN (08:33)
[2022-08-29 09:07] VITALS: TEMP 97.5
[2022-08-29] MEDS ORDERED: HYDROcodone/APAP 5-325MG 1 EACH TAB PO PRN (10:10)
[2022-08-29 11:05] VITALS: RESP 16
[2022-08-29 13:41] VITALS: BP 133/71; PULSE 68
--- NOTE | 2022-08-29 17:52 | FL ---
Lumbar puncture and Myelogram. INDICATION: Pain FINDINGS: Fluoroscopy time: 2 minutes 27 seconds. Images obtained: 11. The procedure was explained to the patient. Risks complications and benefits were discussed. Alternat joslyn were discussed. All questions were answered. Informed consent was obtained. A timeout was performed. The L4-5 level was chosen for access. Maximum barrier sterile technique was utilized. The skin was cl eansed with Betadine and the patient sterilely prepped and draped in the usual manner. The skin and d eeper tissue was anesthetized with 1% Lidocaine. Utilizing a 22-gauge spinal needle the spinal canal was accessed. Good CSF return was evident. Isovue-300 was utilized, 11 milliliters was administered under fluoroscopic observation. The stylette was replaced and the needle withdrawn. Fluoroscopic spot images were obtained. The patient tolerated the procedure well. Discharge instructions were discussed with the patient. Th e patient was transferred to CT for additional evaluation. Findings: Limited views of the lumbar and cervical spine were obtained. Postsurgical changes are thr ough the lumbar spine. No obvious extraluminal defect within the lumbar canal is evident There is poor visualization of the cervical spine and fluoroscopy. However contrast was evident exten ding towards the cervical spine reveal the patient was transferred to CT for additional evaluation. IMPRESSIONS: 1. Successful Lumbar Puncture. 2. Limited fluoroscopic imaging of the cervical spine.
--- NOTE | 2022-08-29 18:03 | CT ---
EXAMINATION TYPE: CT cervical spine w con DATE OF EXAM: 08/29/2022 COMPARISON: HISTORY: cervicalgia CT DLP: 681 mGycm CONTRAST: Performed without and with IV Contrast, patient injected with 11 mL of Isovue M300. CT of the cervical spine is performed in the axial plane at 2 mm thick sections. Reconstructed image s in the coronal, and sagittal plane are reviewed on the computer. No acute fractures are evident. There is exaggeration of the cervical kyphosis. C2-C3: No focal disc herniation or significant disc bulge is evident. No spinal canal stenosis or ela ral foraminal stenosis. There is a central endplate spur with moderate intrathecal sac compression in close approximation with the spinal cord. No cord deformity is evident. No AP spinal canal stenosis is present. C3-4: Endplate spurring is present with moderate anterior thecal sac compression. This is in close ap proximation to the spinal cord. No cord deformity is evident. C4-5: There is a large central spur with moderate to marked anterior thecal sac compression. Cord con tact and some cord deformity is evident. Spinal canal stenosis posterior to the spur is evident. C5-6: Left paracentral endplate spurring is present with moderate anterior thecal sac impression. Thi s comes in close approximation to the spinal cord. No cord deformity is evident. C6-7: At the C6 level there is right posterior lateral sac impression. This is in close approximation with the spinal cord. Endplate spurring is present in the right paracentral region in close approxim ation to the spinal cord. No cord deformity is evident. No spinal canal stenosis. C7-T1: Endplate spurring is present centrally with cord contact. No AP spinal canal stenosis is prese nt. Cord deformity is not identified on these oblique images through the canal. IMPRESSIONS: 1. Multilevel endplate spurs have moderate anterior thecal sac compression discussed above. Cord de formity is noted at the C4-5 level. Additional levels may have cord contact without cord deformity.
== END 2022-08-29 14:04 | disposition home or self-care (01) ==
LOC: RADPROMAIN 08:01
PROVIDERS: ATTEND Orthopaedic Surgery
DX: M48.02 Spinal stenosis, cervical region (principal); G95.20 Unspecified cord compression; M46.02 Spinal enthesopathy, cervical region
CPT/HCPCS: 62302; 72126; Q9967

== ENCOUNTER → 2022-10-10 | Outpatient (CLI) | payer MEDICARE, OTHER ==
[2022-10-10 14:29] LABS: African American GFR (CKD) 61 (>60 ml/min/1.73 sqM); Blood Urea Nitrogen 25 mg/dL (7-17); Non-African American GFR(CKD) 53 (>60 ml/min/1.73 sqM)
--- NOTE | 2022-10-14 13:50 | CT ---
EXAMINATION TYPE: CT angio chest DATE OF EXAM: 10/10/2022 COMPARISON: 06/14/2022 HISTORY: THORACIC AORTIC ANEURYSM CT DLP: 1116.3 mGycm CONTRAST: CTA thoracic aorta with 3-D reconstruction is performed and with IV Contrast, patient injected with 8 0ml mL of Isovue 370. Contrast CTA of the thoracic aorta was performed from the lung apex through the upper abdomen. 3D re construction imaging obtained at a separate workstation. CT Chest: THORACIC AORTA: Ascending thoracic aortic aneurysm measuring 4.1 cm AP dimension. Aortic arch and padma cending thoracic aorta are of normal caliber. Mild atheromatous changes seen. There is no evidence f or dissection or periaortic collection. LUNGS: The lungs are clear and free of infiltrate or atelectasis. No pulmonary nodule or mass is det ected. No pleural effusion or CT evidence of interstitial lung disease. MEDIASTINUM: No evidence for mediastinal hematoma. There is at least moderate cardiomegaly. No evid ence for mediastinal mass or adenopathy. HILAR STRUCTURES: No evidence for mass. No hilar adenopathy is appreciated. OTHER: No significant abnormality. IMPRESSION- 1. Ascending thoracic aortic aneurysm is stable. 2. Cardiomegaly.
== END | disposition home or self-care (01) ==
LOC: RADCTMAIN 13:47
PROVIDERS: ATTEND Thoracic Surgery (Cardiothoracic Vascular Surgery)
DX: I71.21 Aneurysm of the ascending aorta, without rupture (principal); I51.7 Cardiomegaly
CPT/HCPCS: 82565; 84520; 71275; 36415; Q9967

== ENCOUNTER 2023-01-07 15:05 | Inpatient (IN) | payer MEDICARE, OTHER ==
--- NOTE | 2023-01-07 16:57 | ED ---
General Adult HPI - General Chief complaint: Skin/Abscess/Foreign Body Stated complaint: neck pain/infection Time Seen by Provider: 01/07/23 16:33 Source: patient, RN notes reviewed Mode of arrival: ambulatory Limitations: no limitations - History of Present Illness Initial comments: Patient is a pleasant 67-year-old female presenting to the emergency department with concerns for infection. Patient did have neck surgery done recently. Patient saw her doctor today and advised to come to the hospital for planned surgery tomorrow. Patient did also see her doctor recently and was started on antibiotics. No improvement. Patient is having some drainage and redness in the back of her neck. Patient states no significant discomfort. No fever. - Related Data Home Medications Medication Instructions Recorded Confirmed Aspirin EC [Ecotrin Low Dose] 81 mg PO HS 11/02/18 12/08/22 Montelukast [Singulair] 10 mg PO HS 11/02/18 12/08/22 Atorvastatin [Lipitor] 20 mg PO HS 09/05/19 12/08/22 Meclizine [Antivert] 12.5 mg PO Q8H 09/05/19 12/08/22 Topiramate [Topamax] 50 mg PO HS 09/05/19 12/08/22 carvediloL [Coreg] 3.125 mg PO BID 09/05/19 12/08/22 calcitrioL [Rocaltrol] 0.25 mcg PO SUWE 12/06/19 12/08/22 Docusate [Colace] 100 mg PO DAILY 02/09/20 12/08/22 Insulin Lispro [humaLOG Kwikpen] 10 unit SQ TID-W/MEALS 02/09/20 12/08/22 Magnesium Oxide [Shaikh] 1,000 mg PO HS 02/09/20 12/08/22 Cyanocobalamin (Vitamin B-12) 1,000 mcg PO DAILY 06/09/22 12/08/22 [Vitamin B-12] Ergocalciferol [Vitamin D2 (1250 1,250 mcg PO QMONTHLY 06/09/22 12/08/22 Mcg = [id number] Iu)] Ferrous Sulfate [Iron (65 MG 325 mg PO DAILY 06/09/22 12/08/22 Elemental)] Midodrine HCl [ProAmatine] 10 mg PO TID 06/09/22 12/08/22 allopurinoL 100 mg PO DAILY 06/09/22 12/08/22 Albuterol Nebulized [Ventolin 2.5 mg INHALATION Q6H PRN 12/04/22 12/08/22 Nebulized] oxyCODONE-APAP 5-325MG [Percocet 1 tab PO Q4-6H PRN 12/04/22 12/08/22 5-325 mg] Previous Rx's Medication Instructions Recorded Ascorbic Acid [Vitamin C] 1,000 mg PO DAILY tab 06/20/22 Gabapentin 600 mg PO QID #12 tab 06/20/22 INSULIN ASPART (NovoLOG) [NovoLOG 0 unit SQ AC-TID each 06/20/22 (formulary)] Insulin Detemir (Levemir) [Levemir] 20 unit SQ HS each 06/20/22 Zinc Sulfate [Orazinc] 220 mg PO DAILY cap 06/20/22 Acetaminophen Tab [Tylenol] 650 mg PO Q6H tab 12/11/22 Budesonide [Pulmicort] 0.5 mg INHALATION RT-BID ml 12/11/22 Cyclobenzaprine [Flexeril] 5 mg PO BID #60 tablet 12/11/22 Gabapentin 600 mg PO QID 7 Days tab 12/11/22 Ipratropium-Albuterol Nebulize 3 ml INHALATION RT-QID each 12/11/22 [Duoneb 0.5 mg-3 mg/3 ml Soln] Sennosides/Docusate Sodium [Senna 1 each PO DAILY PRN #20 tablet 12/11/22 Plus 8.6-50 mg Tablet] cefaDROXiL [Duricef] 500 mg PO Q12HR #10 cap 12/11/22 oxyCODONE HCL/ACETAMINOPHEN 1 tab PO Q4HR PRN #42 tab 12/11/22 [Percocet 5-325 mg] polyethylene glycoL 3350 [Miralax] 17 gm PO HS packet 12/11/22 Allergies Allergy/AdvReac Type Severity Reaction Status Date / Time No Known Allergies Allergy Verified 01/07/23 17:33 Review of Systems ROS Statement: Those systems with pertinent positive or pertinent negative responses have been documented in the HPI. ROS Other: All systems not noted in ROS Statement are negative. Constitutional: Denies: fever Eyes: Denies: eye pain ENT: Denies: ear pain Respiratory: Denies: cough Cardiovascular: Denies: chest pain Endocrine: Denies: fatigue Gastrointestinal: Denies: abdominal pain Skin: Reports: as per HPI, rash Past Medical History Past Medical History: Asthma, Diabetes Mellitus, GERD/Reflux, Hyperlipidemia, Musculoskeletal Disorder, Osteoarthritis (OA), Pneumonia, Renal Disease, Sleep Apnea/CPAP/BIPAP, Vascular Disorder Additional Past Medical History / Comment(s): neuropathy bilateral hands/legs/feet, CKD stage III, hx kidney stones, anemia, UTI/septic due to lodged kidney stone, CARLOS with bipap, bronchitis, orthostatic hypotension with near syncope, vertigo, chronic low back pain/DDD, scoliosis, bilateral carpal tunnel syndrome, bilateral varicosities, migraines, SEE DR ALFORD H&P, gout, hx anemia(from nicked vein in left kidney after surgery for kidney stone), "embolism in my chest" History of Any Multi-Drug Resistant Organisms: None Reported Past Surgical History: AICD, Appendectomy, Back Surgery, Cardiac Ablation, Section, Cholecystectomy, Heart Catheterization, Hysterectomy, Joint Replacement, Orthopedic Surgery, Pacemaker Additional Past Surgical History / Comment(s): Rt knee arthroscopy, john total knee arthroplasty, pain clinic procedures, D&C, colonoscopy, bilateral leg varicose vein surgery, lithotripsies, surgical removal of stones, Myelogram([place]) 2018, Lumbar fusion L3-4, lumbar puncture for headaches 2019 (had spinal headache post), laminectomy, bakers cyst removed from rt knee, john cataracts, 02/12/21 back surgery with complications, cervical fusion Dec 08 Past Anesthesia/Blood Transfusion Reactions: No Reported Reaction Additional Past Anesthesia/Blood Transfusion Reaction / Comment(s): Pt has received blood without reaction. Type of Cardiac Device: Permanent Pacemaker, AICD Device Placement Date:: 09/10/20 Past Psychological History: Anxiety, Depression Smoking Status: Never smoker Past Alcohol Use History: None Reported Past Drug Use History: None Reported - Past Family History Father Family Medical History: Cancer Additional Family Medical History / Comment(s): Stomach cancer. Brother(s) Family Medical History: Cancer Additional Family Medical History / Comment(s): Lung cancer. Sister(s) Family Medical History: Cancer Additional Family Medical History / Comment(s): Sister had stomach/colon/part of pancreas cancers. Mother Family Medical History: Cancer Additional Family Medical History / Comment(s): Ovarian and cervical cancer. General Exam Limitations: no limitations General appearance: alert, in no apparent distress Head exam: Present: normocephalic Eye exam: Present: normal appearance Neck exam: Present: other (Posterior neck with erythema surrounding the incisions with some mild dehiscence and purulent drainage) Respiratory exam: Present: normal lung sounds bilaterally Cardiovascular Exam: Present: regular rate, normal rhythm GI/Abdominal exam: Present: soft. Absent: tenderness Extremities exam: Present: normal inspection Neurological exam: Present: alert Psychiatric exam: Present: normal affect, normal mood Skin exam: Present: other (Posterior neck with surgical site shunting erythema with some mild dehiscence of purulent drainage) Course Vital Signs 01/07/23 15:08 Temperature 98.2 F Pulse Rate 93 Respiratory 18 Rate Blood Pressure 146/74 O2 Sat by Pulse 98 Oximetry EKG Findings - EKG Results: EKG: interpreted by ERMD (Paced rhythm with a rate of 80. Wide QRS complex.), normal axis, normal ST/T Medical Decision Making - Medical Decision Making Was pt. sent in by a medical professional or institution (, PA, ANESTHESIOLOGIST ASSISTANT, urgent care, hospital, or senior living...) When possible be specific @ -Patient was sent in by Dr. Pack's office Did you speak to anyone other than the patient for history (EMS, parent, family, police, friend...)? What history was obtained from this source @ -No Did you review nursing and triage notes (agree or disagree)? Why? @ -I reviewed and agree with nursing and triage notes Were old charts reviewed (outside hosp., previous admission, EMS record, old EKG, old radiological studies, urgent care reports/EKG's, senior living records)? Report findings @ -No old charts were reviewed Differential Diagnosis (chest pain, altered mental status, abdominal pain women, abdominal pain men, vaginal bleeding, weakness, fever, dyspnea, syncope, headache, dizziness, GI bleed, back pain, seizure, CVA, palpatations, mental health, musculoskeletal)? @ -Differential Fever: Pneumonia, viral URI, endocarditis, myocarditis, pericarditis, otitis, sinusitis, peritonsillar Abscess, retropharyngeal Abscess, epiglottitis, peritonitis, appendicitis, Leilani cystitis, diverticulitis, hepatitis, colitis, UTI, PID, TOA, pyelonephritis, prostatitis, epididymitis, meningitis, encephalitis, pulmonary embolism, CVA, thyroid storm, pancreatitis, adrenal crisis, cavernous sinus thrombosis, this is not meant to be an all-inclusive list. EKG interpreted by me (3pts min.). @ -As above X-rays interpreted by me (1pt min.). @ -None done CT interpreted by me (1pt min.). @ -None done U/S interpreted by me (1pt. min.). @ -None done What testing was considered but not performed or refused? (CT, X-rays, U/S, labs)? Why? @ -None What meds were considered but not given or refused? Why? @ -None Did you discuss the management of the patient with other professionals (professionals i.e. , PA, ANESTHESIOLOGIST ASSISTANT, lab, RT, psych nurse, mental health social worker, color developer, teacher, chief business officer, nurse case management)? Give summary @ -Case was discussed with Dr. Stock stating he no longer is covering for Dr. Jones. Case was discussed with Dr. Snell who admit his patient. Was smoking cessation discussed for >3mins.? @ -No Was critical care preformed (if so, how long)? @ -No Were there social determinants of health that impacted care today? How? (Homelessness, low income, unemployed, alcoholism, drug addiction, transportation, low edu. Level, literacy, decrease access to med. care, senior care, rehab)? @ -No Was there de-escalation of care discussed even if they declined (Discuss DNR or withdrawal of care, Hospice)? DNR status @ -No What co-morbidities impacted this encounter? (DM, HTN, Smoking, COPD, CAD, Cancer, CVA, ARF, Chemo, Hep., AIDS, mental health diagnosis, sleep apnea, morbid obesity)? @ -None Was patient admitted / discharged? Hospital course, mention meds given and route, prescriptions, significant lab abnormalities, going to OR and other pertinent info. @ -Patient is made aware of plan. Admission orders written. Patient will be admitted with surgical consult. IV antibiotics will be started. Undiagnosed new problem with uncertain prognosis? @ -No Drug Therapy requiring intensive monitoring for toxicity (Heparin, Nitro, Insulin, Cardizem)? @ -No Were any procedures done? @ -No Diagnosis/symptom? @ -Postoperative neck infection Acute, or Chronic, or Acute on Chronic? @ -Acute Uncomplicated (without systemic symptoms) or Complicated (systemic symptoms)? @ -default Side effects of treatment? @ -No Exacerbation, Progression, or Severe Exacerbation? @ -No Poses a threat to life or bodily function? How? (Chest pain, [place], [place], pneumonia, PE, COPD, DKA, ARF, appy, cholecystitis, CVA, Diverticulitis, Homicidal, Suicidal, threat to staff... and all critical care pts) @ -No Disposition Clinical Impression: Cellulitis, neck Disposition: ADMITTED IP TO THIS HOSP Is patient prescribed a controlled substance at d/c from ED?: No Time of Disposition: 16:57
[2023-01-07] MEDS ORDERED: NALOXONE 0.4 MG/ML 1 ML VIAL IV PRN (16:58)
[2023-01-07] MEDS ORDERED: ACETAMINOPHEN TAB 325 MG TAB PO PRN (16:58)
--- NOTE | 2023-01-07 17:54 | XR ---
EXAMINATION TYPE: XR chest 2V DATE OF EXAM: 01/07/2023 COMPARISON: 12/08/2022 HISTORY: 67-year-old female with fever TECHNIQUE: PA and lateral views FINDINGS: Left anterior chest wall ICD generator with right atrial, right ventricular, and coronary sinus leads . Partially visualized posterior cervical fusion hardware. External artifact projects down over the m edial upper lungs on both sides. Heart borderline in size. No jose consolidation or pleural effusion seen. [facility] throughout the thoracic spine. IMPRESSION: [facility] throughout the thoracic spine. Some overlying artifact at the medial upper lungs. Borderline hea rt size. No acute process seen.
[2023-01-07] MEDS: SODIUM CHLORIDE 0.9% 1,000 ML IV SCH ×2 (18:02→23:42)
[2023-01-07 18:24] LABS: Basophils % (A) 0 %; Eosinophils # (A) 0.2 k/uL (0-0.7); Eosinophils % (A) 5 %; HGB 10.5 gm/dL (11.4-16.0); Hypochromasia Moderate; Lymphocytes # (A) 1.5 k/uL (1.0-4.8); Lymphocytes % (A) 29 %; MCH 31.2 pg (25.0-35.0); MCHC 32.8 g/dL (31.0-37.0); MCV 95.1 fL (80.0-100.0); Mean Platelet Volume 8.8; Monocytes # (A) 0.4 k/uL (0-1.0); Monocytes % (A) 7 %; Neutrophils % (A) 58 %; Platelet Count 120 k/uL (150-450); RBC 3.36 m/uL (3.80-5.40); RDW 14.8 % (11.5-15.5); WBC 5.1 k/uL (3.8-10.6)
[2023-01-07 18:29] LABS: ALT 16 U/L (4-34); AST 30 U/L (14-36); African American GFR (CKD) 58 (>60 ml/min/1.73 sqM); Albumin 3.7 g/dL (3.5-5.0); Albumin/Globulin Ratio 1.5; Alkaline Phosphatase 138 U/L (38-126); Anion Gap 7 mmol/L; Blood Urea Nitrogen 25 mg/dL (7-17); Calcium 9.7 mg/dL (8.4-10.2); Carbon Dioxide 26 mmol/L (22-30); Chloride 107 mmol/L (98-107); Globulin 2.5 g/dL; Glucose 65 mg/dL (74-99); Non-African American GFR(CKD) 51 (>60 ml/min/1.73 sqM); Potassium 4.6 mmol/L (3.5-5.1); Sodium 140 mmol/L (137-145); Total Bilirubin 0.6 mg/dL (0.2-1.3); Total Protein 6.2 g/dL (6.3-8.2)
[2023-01-07 18:35] LABS: Partial Thromboplastin Time 22.3 sec (22.0-30.0); Prothrombin Time 10.9 sec (10.0-12.5)
[2023-01-07] MEDS: BUDESONIDE 0.5 MG/2 ML NEBU INHALATION SCH (20:54)
[2023-01-07] MEDS ORDERED: IPRATROPIUM-ALBUTEROL 3 ML NEB INHALATION PRN (21:05)
[2023-01-07] MEDS: TOPIRAMATE 25 MG TAB PO SCH (21:54)
[2023-01-07] MEDS: MONTELUKAST 10 MG TAB PO SCH (21:55)
[2023-01-07] MEDS: MAGNESIUM OXIDE 400 MG TAB PO SCH (21:55)
[2023-01-07] MEDS: ATORVASTATIN 20 MG TAB PO SCH (21:55)
[2023-01-07] MEDS: MECLIZINE 12.5 MG TAB PO SCH (21:56)
[2023-01-07] MEDS: GABAPENTIN 300 MG CAP PO SCH (21:56)
[2023-01-07] MEDS: INSULIN DETEMIR (LEVEMIR) 100 UNIT/ML SYR SQ SCH (23:42)
--- NOTE | 2023-01-08 01:36 | HP ---
HISTORY AND PHYSICAL HISTORY OF PRESENT ILLNESS: The patient was admitted to the hospital for cellulitis and possible infection over the cervical spine where recent surgery was done, started outpatient antibiotics x2. She was admitted to hospital for possible surgery, debridement tomorrow. Home medicines have been restarted and reviewed. ALLERGIES: Reviewed. PAST MEDICAL HISTORY: Reviewed. Includes asthma, diabetes mellitus type 2, GERD, dyslipidemia, osteoarthritis, pneumonia, end-stage chronic renal disease, sleep apnea, vascular disorder, sleep apnea with BiPAP, high pressure ulcers, bilateral carpal tunnel syndrome, and migraines. PAST SURGICAL HISTORY: AICD, appendectomy, back surgery, cardiac ablation, , cholecystectomy, heart catheterization, hysterectomy, joint replacement, orthopedic surgery, pacemaker, knee arthritis, etc. FAMILY HISTORY: Mother with lung cancer. Sister with stomach cancer. Mother, cancer ovarian, cervix. PHYSICAL EXAMINATION: GENERAL: Obese white female, no acute distress. CARDIOVASCULAR: S1, S2. LUNGS: Transmitted upper sounds. GI: Soft. HEMATOLOGY: Negative for Homans. PSYCH: Fair mood and affect. NEUROLOGIC: Alert and oriented x3. HEENT: Ophthalmologic, pupils equal, round, and reactive to light and accommodation. Admit the patient. Continue Accu-Chek protocol. IV antibiotics. Surgical consult will be done. Prognosis guarded. Please see further orders. MMODL / IJN: [id number] /
[2023-01-08] MEDS: carvediloL 3.125 MG TAB PO SCH ×2 (06:38→17:50)
[2023-01-08] MEDS: MIDODRINE 5 MG TAB PO SCH ×3 (06:38→17:50)
[2023-01-08] MEDS ORDERED: TRANEXAMIC 1,000 MG/100ML-NACL 1,000 MG in SALINE 1 100ML.BAG IVPB PRN (06:53)
[2023-01-08 07:28] LABS: Glucose,Whole Blood 84 mg/dL (70-110)
[2023-01-08] MEDS: [UNRECOGNIZED DRUG - OTHER] INHALATION SCH (08:00)
[2023-01-08] MEDS: BUDESONIDE 0.5 MG/2 ML NEBU INHALATION SCH ×2 (08:41→19:50)
[2023-01-08] MEDS: IPRATROPIUM 0.5 MG/2.5 ML NEBU INHALATION SCH ×4 (08:42→19:50)
[2023-01-08 08:58] LABS: BUN/Creat Ratio 19.18 Ratio (12.00-20.00); Blood Urea Nitrogen 21.1 mg/dL (9.0-27.0); Calcium 9.9 mg/dL (8.7-10.3); Carbon Dioxide 25.9 mmol/L (21.6-31.8); Chloride 108 mmol/L (96-109); Glucose 80 mg/dL (70-110); Potassium 4.2 mmol/L (3.5-5.5); Sodium 145 mmol/L (135-145)
[2023-01-08] MEDS ORDERED: ASPIRIN 325 MG TAB PO SCH (09:00)
[2023-01-08] MEDS: SERTRALINE 50 MG TAB PO SCH (09:11)
[2023-01-08] MEDS: GABAPENTIN 300 MG CAP PO SCH ×3 (09:12→21:04)
[2023-01-08] MEDS: MECLIZINE 12.5 MG TAB PO SCH ×2 (09:12→20:30)
[2023-01-08] MEDS: SODIUM CHLORIDE 0.9% 1,000 ML IV SCH ×2 (09:12→17:46)
[2023-01-08] MEDS: FERROUS SULFATE 325 MG TAB PO SCH (09:12)
[2023-01-08] MEDS: allopurinoL 100 MG TAB PO SCH (09:12)
[2023-01-08 09:14] LABS: Basophils # (A) 0.03 X 10*3/uL (0.00-0.10); Basophils % (A) 0.6 %; Eosinophils # (A) 0.26 X 10*3/uL (0.04-0.35); Eosinophils % (A) 5.3 %; HCT 32.2 % (37.2-46.3); HGB 9.6 g/dL (12.0-15.0); Lymphocytes # (A) 1.52 X 10*3/uL (0.90-5.00); Lymphocytes % (A) 30.7 %; MCH 29.3 pg (27.0-32.0); MCHC 29.8 g/dL (32.0-37.0); MCV 98.2 FL (80.0-97.0); Mean Platelet Volume 11.3 FL (9.5-12.2); Monocytes # (A) 0.48 X 10*3/uL (0.20-1.00); Monocytes % (A) 9.7 %; NRBC Per 100 WBC 0 X 10*3/uL (0.00-0.01); Neutrophils # (A) 2.65 X 10*3/uL (1.80-7.70); Neutrophils % (A) 53.5 %; Platelet Count 121 X 10*3/uL (140-440); RBC 3.28 X 10*6/uL (4.10-5.20); RDW 14.7 % (11.5-14.5); WBC 4.95 X 10*3/uL (4.50-10.00)
[2023-01-08] MEDS ORDERED: VANCOMYCIN IV PER PHARMACY 1 EACH MISC MISCELLANE PRN (11:15)
--- NOTE | 2023-01-08 11:26 | P.CNOR ---
History of Present Illness - [facility] Consult date: 01/08/23 Consult reason: other (Delayed wound healing of posterior cervical incision) History of present illness: History of Presenting Illness Patient is a pleasant 67-year-old female who sent to the ER by our office due to delayed wound healing of her posterior cervical incision. Patient had a recent C2-T2 decompression and fusion performed on 12/08/[address] Meeks. Patient had a 2 week follow-up appointment in our office 11/28/22 and mana had been removed. There was some mild ulceration mid incision with scant drainage. Antibiotics were prescribed. Patient had returned yesterday 01/07/23 for a recheck of incision, ulceration has progressed with increased drainage. Patient denies any cervical pain. Patient is taking Aspirin 325mg daily. Patient seen and examined this morning. Patient is resting comfortably in bed. [place] hard collar was intact. Patient has remained nothing by mouth for surgical intervention scheduled later today 01/08/2023. She denies any questions or concerns. Review of Systems Pertinent positives and negatives as discussed in HPI, a complete review of systems was performed and all other systems are negative. Physical Examination General: The patient is awake and alert, in no acute distress Skin: Skin is warm and dry with no obvious rashes or lesions. Ulcerated surgical incision to the posterior cervical spine with mild serous drainage. Eye: Pupils are equal, round and reactive to light, extra-ocular movements are intact; there is normal conjunctiva bilaterally. Neck: The neck is supple, there is mild tenderness and limited ROM due to stiffness from surgical procedure and [place] hard collar intact. Cardiovascular: There is a regular rate and rhythm. No murmur, rub or gallop is appreciated. Respiratory: Lungs are clear to auscultation, respirations are non-labored, breath sounds are equal. Gastrointestinal: Soft, non-distended, non-tender abdomen. Back: There is no tenderness to palpation in the midline, paralumbar, parathoracic or buttocks region. There is no obvious deformity. Musculoskeletal: ROM limited secondary to pain and stiffness from surgical procedure. Shoulder abduction 5/5, elbow flexors 5/5, wrist dorsiflexors 5/5. finger abductor 5/5, welding operator 5/5, hip flexor 5/5, knee flexor 5/5, ankle dorsifl exor 5/5, ankle plantarflexion 5/5 and extensor hallucis 5/5. Neurological: CN 2-12 intact. There are no obvious motor or sensory deficits. Movement and coordination equal and intact. Sensory exam to light touch intact C5-T1 and intact from L2-S1. Reflexes 2/4 in bilateral upper and lower extremit ies. Negative Hoffmans, babinski, and clonus signs. Psychiatric: Cooperative, appropriate mood & affect, normal judgment. Assessment and Plan s/p post-op 4 week C2-T2 decompression and fusion delayed wound healing ulceration of posterior cervical incision multiple complex comorbidities 1. Appreciate medical management 2. Maintain NPO 3. Incision and drainage with irrigation and debridement of cervical wound scheduled for later today 01/08/2023 4. Pain management - Adequate at this time 5. GI prophylaxis - senna, miralax 6. DVT prophylaxis - Mechanical, hold Aspirin 7. PT/OT - weightbearing as tolerated with a walker as needed. 8. Appreciate consult I reviewed and discussed this case with my attending Dr. Meeks, whom has reviewed this chart and films and is in agreement with assessment and plan of care as outlined above. I have personally seen and examined the patient, performed the documentation and the assessment and plan as written. Number of minutes spent on the visit: 15m. Past Medical History Past Medical History: Asthma, Diabetes Mellitus, GERD/Reflux, Hyperlipidemia, Musculoskeletal Disorder, Osteoarthritis (OA), Pneumonia, Renal Disease, Sleep Apnea/CPAP/BIPAP, Vascular Disorder Additional Past Medical History / Comment(s): neuropathy bilateral hands/legs/fe et, CKD stage III, hx kidney stones, anemia, UTI/septic due to lodged kidney stone, CARLOS with bipap, bronchitis, orthostatic hypotension with near syncope, vertigo, chronic low back pain/DDD, scoliosis, bilateral carpal tunnel syndrome, bilateral varicosities, migraines, SEE DR ALFORD H&P, gout, hx anemia(from nicked vein in left kidney after surgery for kidney stone), "embolism in my chest" History of Any Multi-Drug Resistant Organisms: None Reported Past Surgical History: AICD, Appendectomy, Back Surgery, Cardiac Ablation, Section, Cholecystectomy, Heart Catheterization, Hysterectomy, Joint Replacement, Orthopedic Surgery, Pacemaker Additional Past Surgical History / Comment(s): Rt knee arthroscopy, john total knee arthroplasty, pain clinic procedures, D&C, colonoscopy, bilateral leg varicose vein surgery, lithotripsies, surgical removal of stones, Myelogram([place]) 2018, Lumbar fusion L3-4, lumbar puncture for headaches 2019 (had spinal headache post), laminectomy, bakers cyst removed from rt knee, john cataracts, 02/12/21 back surgery with complications, cervical fusion Dec 08 Past Anesthesia/Blood Transfusion Reactions: No Reported Reaction Additional Past Anesthesia/Blood Transfusion Reaction / Comm: Pt has received blood without reaction. Type of Cardiac Device: Permanent Pacemaker, AICD Device Placement Date:: 09/10/20 Smoking Status: Never smoker - Past Family History Father Family Medical History: Cancer Additional Family Medical History / Comment(s): Stomach cancer. Brother(s) Family Medical History: Cancer Additional Family Medical History / Comment(s): Lung cancer. Sister(s) Family Medical History: Cancer Additional Family Medical History / Comment(s): Sister had stomach/colon/part of pancreas cancers. Mother Family Medical History: Cancer Additional Family Medical History / Comment(s): Ovarian and cervical cancer. Medications and Allergies Home Medications Medication Instructions Recorded Confirmed Type Montelukast [Singulair] 10 mg PO HS 11/02/18 01/07/23 History Atorvastatin [Lipitor] 20 mg PO HS 09/05/19 01/07/23 History Meclizine [Antivert] 12.5 mg PO BID 09/05/19 01/07/23 History Topiramate [Topamax] 50 mg PO HS 09/05/19 01/07/23 History calcitrioL [Rocaltrol] 0.25 mcg PO NORRIS 12/06/19 01/07/23 History Docusate [Colace] 100 mg PO Q48H 02/09/20 01/07/23 History Insulin Lispro [humaLOG Kwikpen] 15 unit SQ TID-W/MEALS 02/09/20 01/07/23 History Magnesium Oxide [Shaikh] 1,000 mg PO HS 02/09/20 01/07/23 History Cyanocobalamin (Vitamin B-12) 1,000 mcg PO DAILY 06/09/22 01/07/23 History [Vitamin B-12] Ferrous Sulfate [Iron (65 MG 325 mg PO DAILY 06/09/22 01/07/23 History Elemental)] Midodrine HCl [ProAmatine] 10 mg PO TID 06/09/22 01/07/23 History allopurinoL 100 mg PO DAILY 06/09/22 01/07/23 History Budesonide [Pulmicort] 0.5 mg INHALATION RT-BID ml 12/11/22 01/07/23 Rx Albuterol Sulfate [Albuterol 2 puff PO RT-Q4H PRN 01/07/23 01/07/23 History Sulfate Hfa] Aspirin EC [Ecotrin] 325 mg PO DAILY 01/07/23 01/07/23 History Dupilumab [Dupixent Syringe] 300 mg SQ Q14D 01/07/23 01/07/23 History Gabapentin 600 mg PO TID 01/07/23 01/07/23 History Insulin Glargine,Hum.rec.anlog 36 units SQ HS 01/07/23 01/07/23 History [Lantus Solostar Pen] Sertraline HCl [Zoloft] 50 mg PO DAILY 01/07/23 01/07/23 History Tiotropium 2.5 Mcg/Puff [Spiriva 2 puff INHALATION RT-DAILY 01/07/23 01/07/23 History Respimat 2.5 Mcg] Yuperli 175mcg/3ml 175 mcg INHALATION RT-DAILY 01/07/23 01/07/23 History carvediloL [Coreg] 3.125 mg PO BID-W/MEALS 01/07/23 01/07/23 History cefaDROXiL [Duricef] 500 mg PO BID 01/07/23 01/07/23 History lisinopriL [Zestril] 2.5 mg PO DAILY 01/07/23 01/07/23 History oxyCODONE-APAP 10-325MG [Percocet 1 tab PO QID PRN 01/07/23 01/07/23 History 10-325 mg] Allergies Allergy/AdvReac Type Severity Reaction Status Date / Time No Known Allergies Allergy Verified 01/07/23 17:33 Results - Labs Labs: Abnormal Lab Results - Last 24 Hours (Table) 01/07/23 01/07/23 01/08/23 Range/Units 17:40 17:40 05:25 RBC 3.36 L 3.28 L (3.80-5.40) m/uL Hgb 10.5 L 9.6 L (11.4-16.0) gm/dL Hct 32.0 L 32.2 L (34.0-46.0) % MCV 98.2 H (80.0-97.0) FL MCHC 29.8 L (32.0-37.0) g/dL RDW 14.7 H (11.5-14.5) % Plt Count 120 L 121 L (150-450) k/uL BUN 25 H (7-17) mg/dL Creatinine 1.12 H (0.52-1.04) mg/dL Est GFR (CKD-EPI) (>=60) Glucose 65 L (74-99) mg/dL Alkaline Phosphatase 138 H (38-126) U/L Total Protein 6.2 L (6.3-8.2) g/dL 01/08/23 Range/Units 05:25 RBC (3.80-5.40) m/uL Hgb (11.4-16.0) gm/dL Hct (34.0-46.0) % MCV (80.0-97.0) FL MCHC (32.0-37.0) g/dL RDW (11.5-14.5) % Plt Count (150-450) k/uL BUN (7-17) mg/dL Creatinine (0.52-1.04) mg/dL Est GFR (CKD-EPI) 55 L (>=60) Glucose (74-99) mg/dL Alkaline Phosphatase (38-126) U/L Total Protein (6.3-8.2) g/dL H & H 01/07/23 01/08/23 Range/Units 17:40 05:25 Hgb 10.5 L 9.6 L (11.4-16.0) gm/dL Hct 32.0 L 32.2 L (34.0-46.0) % Coagulation 01/07/23 Range/Units 17:40 INR 1.0 (<1.2) Result Diagrams: 01/08/23 05:25 01/08/23 05:25
[2023-01-08] MEDS: oxyCODONE-APAP 10-325MG 1 EACH TAB PO PRN (11:57)
[2023-01-08] MEDS: DOCUSATE 100 MG CAP PO SCH (11:58)
[2023-01-08] MEDS: VANCOMYCIN 1,500 MG in SODIUM CHLORIDE 0.9% 500 ML 500 ML IVPB SCH (11:59)
[2023-01-08 12:14] LABS: Glucose,Whole Blood 78 mg/dL (70-110)
[2023-01-08] MEDS ORDERED: IV FLUID CONTINUATION 200 ML IV ONE (14:49)
[2023-01-08] MEDS ORDERED: IV FLUID CONTINUATION 800 ML IV ONE (14:49)
--- NOTE | 2023-01-08 14:51 | P.PN ---
Progress Note - Text Progress Note Date: 01/08/23 Spine Surgery Clinical and Risk Review Yani Andino is a [Demographic] presenting for evaluation of continued drainage posterior neck s/p C2-T2 decompression and fusion. It was my pleasure to have seen and examined Yani Andino. In our visit today we have had a chance to go over subjective complaints, physic al examination findings and treatments including the natural course history without intervention and various interventional options. The patients imaging demonstrates no complicating process post op changes to the neck . On physical exam, Yani Houghondemonstrates wound dehiscence posterior neck mid portion 4 cm with some drainage. I have explained to the patient that as their condition progresses it will cause further neurological deficits and eventual paralysis. Based on the patients imaging, physical exam, and the rapid progression and disabling nature of their symptoms, at this time I recommend surgery in the form or a: Posterior neck debridment and closure. . I discussed the risk and benefits of this procedure at length with Yani Andino. The patient family agreed to considered pursuing the procedure abovementioned. Prior to surgery, she should follow up with her PCP (Cardio, ID, IM etc) for clearance. Questions were invited and answered, and the patient wishes to proceed as outlined below. Currently, I am recommendin. I&D with wound revision posterior neck 2. Follow up with PCP for surgical clearance 3. Review of surgical risks and benefits as well as an educational packet on the proposed surgical procedure. Risks: All surgical procedures come with inherent risks, including those related to positioning, anesthesia, intraoperative findings, and postoperative complications. It is important to understand that surgery does not come with any guarantee of a successful outcome as complications and adverse events are always possible. The patient was given a handout in office today discussing the surgical procedure and risks associated with the intervention, both of which were discussed with the patient. These risks include but are not limited to the following: * Experiencing same, different or even worse symptoms in back, neck, arms, or legs compared to before surgery. * Requiring further surgery or other forms of treatment presently or at some time in the future at same or other levels of the intended spine surgery. * On an extreme but fortunately relatively rare basis severe complication such as blindness, stroke, heart attack, temporary and/or permanent nerve injury, paralysis, coma, or may occur, sometimes without known explanation. * Surgical complications may include but are not limited to risk of infection, fluid accumulation in the surgical dissection site, including a seroma or hematoma, that requires additional surgery, wound drainage, bleeding, new numbness or weakness, vision changes/loss, spinal fluid leakage, non-healing and/or infected incision, headaches, difficulty or inability to swallow, hoarseness, hemopneumothorax, pneumothorax, impotence, retrograde ejaculation, vaginal dryness; injury to nerves, spinal cord, blood vessels, lymphatics or other vital organs (i.e., bowel injury, injury to the great vessels); heterotopic bone formation; complications related to the hardware such as screws, rods, cages including misplaced hardware, device failure, instrumentation at the wrong spine level, hardware fracture/breakage, or hardware loosening; vertebral failure of the spinal column above or below the newly placed hardware; retained surgical instrumentations or devices and the need for further surgery. * Medical risks of the planned spine surgery include but are not limited to generalized Infections to the whole body or local areas outside of the surgical site (sepsis), heart attack, bleeding, anaphylaxis, meningitis, seizure, epilepsy, hearing loss, burn parks, laceration of the head or other areas of the body, bruising, hypersensitivity of the skin, bladder over disten rosemarie; allergic reaction; shoulder injury related to positioning; fat, blood and air clots to other areas of the body like heart, lungs, brain; failure of internal organs such as lungs, kidneys, liver and excessive bleeding. If blood transfusions are necessary, note that transfusions may cause intolerance reactions such as anaphylaxis or other complex reactions. * Despite best efforts, the results of spine surgery might not heal in terms of bone, soft tissues such as skin, fascia, ligaments, and joints. Additionally, in order to achieve best possible results, spine surgery may be carried out beyond the initially planned levels and involve decompression, fusion including insertion of hardware at levels other than the original intended area of surgical interest change some portions of the procedure in order to ensure the best possible outcomes. * With spine surgery and spinal fusion, there are different off label uses of instrumentation (devices, implants and hardware) as well as biological substances (bone morphogenic proteins, demineralized bone matrix) as well as using extra bone from allograft sources (i.e. cadaver bone) or autograft (iliac crest bone, ribs, or the spine itself). The patient has been given information about these practices and their inherent risks and benefits. The patient has had a chance to review all the listed information, has been given print outs detailing this information, and has had all his/her questions answered to their satisfaction. It was my pleasure to have seen and examined Yani Andino. In our visit today we have had a chance to go over my understanding of our patient's current condition, the natural course history without intervention and various interventional options. Questions were invited and answered, and the patient wishes to proceed as outlined above. I have seen and examined the patient for 25 minutes and we have spent more than 50% of the time in repeat and detailed counseling about the patient's condition, its natural course history with out and as much as can be predicted with surgery and re-review of various surgical treatment options. In conclusion, Yani Andino and family requested we proceed with the above suggested surgery and are willing to accept risks and limitations of the suggested surgery as nature of the disease process and our best attempts at treatment for the condition. Thank you again for allowing us to be part of your patient's care. Please don't hesitate to contact me if you have any further questions. Signed and authenticated by: Jomar Scruggs [facility] [address] [place], [address] [address]
[2023-01-08] MEDS ORDERED: ONDANSETRON 4 MG/2 ML VIAL ONE (15:03)
[2023-01-08 15:04] LABS: Glucose,Whole Blood 65 mg/dL (70-110)
[2023-01-08] MEDS ORDERED: DEXAMETHASONE SOD PHOSPHATE 4 MG/ML 1 ML VIAL IVP ONE (15:08)
[2023-01-08] MEDS ORDERED: ONDANSETRON 4 MG/2 ML VIAL IVP ONE (15:08)
[2023-01-08] MEDS ORDERED: DEXTROSE 50% SYRINGE 50 ML IVP ONE (15:08)
[2023-01-08 15:16] VITALS: BMI 36.1
[2023-01-08] MEDS ORDERED: LIDOCAINE 1% INJ 10MG/ML (20 ML MDV) ONE (15:16)
[2023-01-08] MEDS ORDERED: TRANEXAMIC 1,000 MG/100ML-NACL PREMIX BAG ONE (15:16)
[2023-01-08] MEDS ORDERED: PHENYLEPHRINE 10 MG/ML 5 ML VIAL ONE (15:16)
[2023-01-08] MEDS ORDERED: PROPOFOL 10 MG/ML 20 ML VIAL IV ONE (15:16)
[2023-01-08] MEDS ORDERED: fentaNYL (PF) 50 MCG/ML 2 ML AMP ONE (15:16)
[2023-01-08] MEDS ORDERED: SUCCINYLCHOLINE CHLORIDE 200 MG/10 ML VIAL IV ONE (15:16)
[2023-01-08] MEDS ORDERED: MIDAZOLAM 2 MG/2 ML VIAL ONE (15:16)
[2023-01-08 15:38] LABS: Glucose,Whole Blood 118 mg/dL (70-110)
[2023-01-08] MEDS ORDERED: ceFAZolin 3,000 MG in SODIUM CHLORIDE 0.9% IRRIGATIO 3,000 ML IRRIGATION ONE (15:53)
[2023-01-08] MEDS ORDERED: HYDROmorphone 0.5 MG/0.5 ML SYRINGE IVP PRN (16:19)
[2023-01-08 16:35] LABS: Glucose,Whole Blood 77 mg/dL (70-110)
[2023-01-08 17:02] LABS: Glucose,Whole Blood 83 mg/dL (70-110)
[2023-01-08] MEDS ORDERED: HYDROmorphone 0.5 MG/0.5 ML SYRINGE IVP ONE (17:10)
[2023-01-08 17:50] LABS: Glucose,Whole Blood 83 mg/dL (70-110)
[2023-01-08 20:27] LABS: Glucose,Whole Blood 192 mg/dL (70-110)
[2023-01-08] MEDS: INSULIN DETEMIR (LEVEMIR) 100 UNIT/ML SYR SQ SCH (20:29)
[2023-01-08] MEDS: ATORVASTATIN 20 MG TAB PO SCH (20:30)
[2023-01-08] MEDS: MONTELUKAST 10 MG TAB PO SCH (20:30)
[2023-01-08] MEDS: MAGNESIUM OXIDE 400 MG TAB PO SCH (20:30)
[2023-01-08] MEDS: TOPIRAMATE 25 MG TAB PO SCH (20:30)
--- NOTE | 2023-01-08 22:12 | PN ---
PROGRESS NOTE SUBJECTIVE: Admitted with cellulitis of the neck, supposed to have surgery today by Dr. Meeks with with bone revision posterior neck. Surgical clearance is given. Broad- spectrum antibiotics were given. The patient's prognosis is guarded. Sugars are in the low 60s, 70s, to 80s. We gave her long-acting insulin into scale at this point. OBJECTIVE: VITAL SIGNS: 95 on room air, pulse 60s to 70s, respiratory rate 16 to 18, blood pressure 119 to 130 over 60s to 70s. CARDIOVASCULAR: S1, S2. LUNGS: Transmitted upper sounds. HEMATOLOGY: Negative for Homans. PSYCH: Fair mood and affect. Continue cellulitis of the neck, status post cervical revision. Continue with broad- spectrum antibiotics. Follow up in next 24 to 48 hours. Accu-Chek protocol. Advance diet as tolerated. MMODL / IJN: [id number] /
--- NOTE | 2023-01-08 22:34 | P.CONS ---
History of Present Illness - Reason for Consult Consult date: 01/08/23 Cellulitis Requesting physician: Vishal Snell - Chief Complaint Nonhealing wound to the neck and drainage x days - History of Present Illness Patient is a 67-year-old female with a past medical history significant for diabetes mellitus hyperlipidemia reflux pneumonia in this patient who is status post C2-T2 decompression and fusion surgery that was done on 12/08/2022 patient mentions he was subsequently discharged to the local alf and apparently the patient started having a drainage a week before surgery patient did have her mana removed on 12/28/2022 patient was noticed to have some cellulitis around the incision and has been treated with oral Keflex on reevaluation yesterday 01/07/2023 patient was noticed to have a progression of the ulceration to the posterior cervical incision with increasing drainage concerning for infection the patient was advised to go to the hospital for admission and possible I&D and deep culture patient denies high-grade fever or any chills has been complaining of pain to the posterior neck irritable moderate in aching to sharp moderate intensity without any radiation has been complaining of some sinus drainage no foul-smelling no denies any chest pain shortness of breath or cough no nausea vomiting no abdominal pain vomiting diarrhea on presentation to the hospital the patient was afebrile and no fever has been recorded subsequently patient did have a normal white count creatinine was 1.12 blood cultures obtained which are currently pending patient was started on cefazolin infectious disease was consulted for further management of antibiotic therapy Review of Systems Positive point and negatives has been mentioned in the HPI, complete review of systems was performed and all other systems are negative Past Medical History Past Medical History: Asthma, Diabetes Mellitus, GERD/Reflux, Hyperlipidemia, Musculoskeletal Disorder, Osteoarthritis (OA), Pneumonia, Renal Disease, Sleep Apnea/CPAP/BIPAP, Vascular Disorder Additional Past Medical History / Comment(s): neuropathy bilateral hands/legs/feet, CKD stage III, hx kidney stones, anemia, UTI/septic due to lodged kidney stone, CARLOS with bipap, bronchitis, orthostatic hypotension with near syncope, vertigo, chronic low back pain/DDD, scoliosis, bilateral carpal tunnel syndrome, bilateral varicosities, migraines, SEE DR ALFORD H&P, gout, hx anemia(from nicked vein in left kidney after surgery for kidney stone), "embolism in my chest" History of Any Multi-Drug Resistant Organisms: None Reported Past Surgical History: AICD, Appendectomy, Back Surgery, Cardiac Ablation, Section, Cholecystectomy, Heart Catheterization, Hysterectomy, Joint Replacement, Orthopedic Surgery, Pacemaker Additional Past Surgical History / Comment(s): Rt knee arthroscopy, john total knee arthroplasty, pain clinic procedures, D&C, colonoscopy, bilateral leg varicose vein surgery, lithotripsies, surgical removal of stones, Myelogram([place]) 2018, Lumbar fusion L3-4, lumbar puncture for headaches 2019 (had spinal headache post), laminectomy, bakers cyst removed from rt knee, john cataracts, 02/12/21 back surgery with complications, cervical fusion Dec 08 Past Anesthesia/Blood Transfusion Reactions: No Reported Reaction Additional Past Anesthesia/Blood Transfusion Reaction / Comm: Pt has received blood without reaction. Type of Cardiac Device: Permanent Pacemaker, AICD Device Placement Date:: 09/10/20 Smoking Status: Never smoker - Past Family History Father Family Medical History: Cancer Additional Family Medical History / Comment(s): Stomach cancer. Brother(s) Family Medical History: Cancer Additional Family Medical History / Comment(s): Lung cancer. Sister(s) Family Medical History: Cancer Additional Family Medical History / Comment(s): Sister had stomach/colon/part of pancreas cancers. Mother Family Medical History: Cancer Additional Family Medical History / Comment(s): Ovarian and cervical cancer. Medications and Allergies Home Medications Medication Instructions Recorded Confirmed Type Montelukast [Singulair] 10 mg PO HS 11/02/18 01/07/23 History Atorvastatin [Lipitor] 20 mg PO HS 09/05/19 01/07/23 History Meclizine [Antivert] 12.5 mg PO BID 09/05/19 01/07/23 History Topiramate [Topamax] 50 mg PO HS 09/05/19 01/07/23 History calcitrioL [Rocaltrol] 0.25 mcg PO NORRIS 12/06/19 01/07/23 History Docusate [Colace] 100 mg PO Q48H 02/09/20 01/07/23 History Insulin Lispro [humaLOG Kwikpen] 15 unit SQ TID-W/MEALS 02/09/20 01/07/23 History Magnesium Oxide [Shaikh] 1,000 mg PO HS 02/09/20 01/07/23 History Cyanocobalamin (Vitamin B-12) 1,000 mcg PO DAILY 06/09/22 01/07/23 History [Vitamin B-12] Ferrous Sulfate [Iron (65 MG 325 mg PO DAILY 06/09/22 01/07/23 History Elemental)] Midodrine HCl [ProAmatine] 10 mg PO TID 06/09/22 01/07/23 History allopurinoL 100 mg PO DAILY 06/09/22 01/07/23 History Budesonide [Pulmicort] 0.5 mg INHALATION RT-BID ml 12/11/22 01/07/23 Rx Albuterol Sulfate [Albuterol 2 puff PO RT-Q4H PRN 01/07/23 01/07/23 History Sulfate Hfa] Aspirin EC [Ecotrin] 325 mg PO DAILY 01/07/23 01/07/23 History Dupilumab [Dupixent Syringe] 300 mg SQ Q14D 01/07/23 01/07/23 History Gabapentin 600 mg PO TID 01/07/23 01/07/23 History Insulin Glargine,Hum.rec.anlog 36 units SQ HS 01/07/23 01/07/23 History [Lantus Solostar Pen] Sertraline HCl [Zoloft] 50 mg PO DAILY 01/07/23 01/07/23 History Tiotropium 2.5 Mcg/Puff [Spiriva 2 puff INHALATION RT-DAILY 01/07/23 01/07/23 History Respimat 2.5 Mcg] Yuperli 175mcg/3ml 175 mcg INHALATION RT-DAILY 01/07/23 01/07/23 History carvediloL [Coreg] 3.125 mg PO BID-W/MEALS 01/07/23 01/07/23 History cefaDROXiL [Duricef] 500 mg PO BID 01/07/23 01/07/23 History lisinopriL [Zestril] 2.5 mg PO DAILY 01/07/23 01/07/23 History oxyCODONE-APAP 10-325MG [Percocet 1 tab PO QID PRN 01/07/23 01/07/23 History 10-325 mg] Allergies Allergy/AdvReac Type Severity Reaction Status Date / Time No Known Allergies Allergy Verified 01/07/23 17:33 Physical Exam Vitals: Vital Signs Temp Pulse Pulse Resp BP BP Pulse Ox 01/08/23 09:04 67 01/08/23 08:47 67 01/08/23 08:00 97.5 F L 85 18 143/83 99 01/08/23 02:00 97.9 F 71 15 130/62 98 01/08/23 00:02 98.7 F 77 16 128/57 99 01/07/23 21:16 85 01/07/23 20:54 84 01/07/23 20:21 97.9 F 86 20 112/63 97 01/07/23 15:08 98.2 F 93 18 146/74 98 Intake and Output 01/07/23 01/08/23 01/08/23 22:59 06:59 14:59 Other: Voiding Method Toilet # Voids 0 Weight 98.43 kg 98.43 kg GENERAL DESCRIPTION: Elderly female lying in bed, no distress. No tachypnea or accessory muscle of respiration use. HEENT: Shows Pallor , no scleral icterus. Oral mucous membrane is dry. No pharyngeal erythema or thrush NECK: Trachea central, no thyromegaly. Posterior neck area did have a nonhealing wound with surrounding redness minimal drainage LUNGS: Unlabored breathing. Clear to auscultation anteriorly. No wheeze or crackle. HEART: S1, S2, regular rate and rhythm. No loud murmur ABDOMEN: Soft, no tenderness , guarding or rigidity, no organomegaly EXTREMITIES: No edema of feet. SKIN: No rash, no masses palpable. NEUROLOGICAL: The patient is awake, alert, oriented x3, mood and affect normal. Results CBC & Chem 7: 01/08/23 05:25 01/08/23 05:25 Labs: Abnormal Lab Results - Last 24 Hours (Table) 01/07/23 01/07/23 01/08/23 Range/Units 17:40 17:40 05:25 RBC 3.36 L 3.28 L (3.80-5.40) m/uL Hgb 10.5 L 9.6 L (11.4-16.0) gm/dL Hct 32.0 L 32.2 L (34.0-46.0) % MCV 98.2 H (80.0-97.0) FL MCHC 29.8 L (32.0-37.0) g/dL RDW 14.7 H (11.5-14.5) % Plt Count 120 L 121 L (150-450) k/uL BUN 25 H (7-17) mg/dL Creatinine 1.12 H (0.52-1.04) mg/dL Est GFR (CKD-EPI) (>=60) Glucose 65 L (74-99) mg/dL Alkaline Phosphatase 138 H (38-126) U/L Total Protein 6.2 L (6.3-8.2) g/dL 01/08/23 Range/Units 05:25 RBC (3.80-5.40) m/uL Hgb (11.4-16.0) gm/dL Hct (34.0-46.0) % MCV (80.0-97.0) FL MCHC (32.0-37.0) g/dL RDW (11.5-14.5) % Plt Count (150-450) k/uL BUN (7-17) mg/dL Creatinine (0.52-1.04) mg/dL Est GFR (CKD-EPI) 55 L (>=60) Glucose (74-99) mg/dL Alkaline Phosphatase (38-126) U/L Total Protein (6.3-8.2) g/dL Assessment and Plan (1) Surgical site infection Current Visit: Yes Status: Acute Code(s): T81.49XA - INFECTION FOLLOWING A PROCEDURE, OTHER SURGICAL SITE, INIT SNOMED Code(s): 88945265 (2) Cellulitis, neck Current Visit: Yes Status: Acute Code(s): L03.221 - CELLULITIS OF NECK SNOMED Code(s): 90305327 Plan: Patient with a recent history of C2-T2 decompression and fusion now present to hospital with a wound dehiscence increasing drainage and cellulitis at the surgical site failing outpatient oral Keflex therapy concerning for possible community associated MRSA 2-await surgical debridement and deep culture 3-discontinue cefazolin 4-check inflammatory markers 5-vancomycin pharmacy to dose with a target trough of 15 while watching kidney function and Vanco trough closely. We will follow on clinical condition and cultures to further adjust medication if needed Thank you for this consultation we will follow the patient along with you Dictation was produced using [employer] software. please excuse any grammatical, word or spelling errors. Time with Patient: Greater than 30
[2023-01-09] MEDS: SODIUM CHLORIDE 0.9% 1,000 ML IV SCH ×3 (04:20→12:16)
[2023-01-09 06:05] LABS: Glucose,Whole Blood 166 mg/dL (70-110)
[2023-01-09] MEDS: carvediloL 3.125 MG TAB PO SCH ×2 (06:05→16:50)
[2023-01-09] MEDS: MIDODRINE 5 MG TAB PO SCH ×3 (06:05→16:47)
[2023-01-09] MEDS: [UNRECOGNIZED DRUG - OTHER] INHALATION SCH (07:20)
[2023-01-09] MEDS: allopurinoL 100 MG TAB PO SCH (08:36)
[2023-01-09] MEDS: GABAPENTIN 300 MG CAP PO SCH ×3 (08:36→21:38)
[2023-01-09] MEDS: FERROUS SULFATE 325 MG TAB PO SCH (08:36)
[2023-01-09] MEDS: SERTRALINE 50 MG TAB PO SCH (08:36)
[2023-01-09] MEDS: MECLIZINE 12.5 MG TAB PO SCH ×2 (08:36→20:42)
[2023-01-09] MEDS: oxyCODONE-APAP 10-325MG 1 EACH TAB PO PRN ×3 (08:42→20:42)
--- NOTE | 2023-01-09 08:46 | P.PN ---
Subjective Progress Note Date: 01/09/23 Principal diagnosis: Delayed wound healing of posterior cervical incision with drainage Patient seen and examined this morning. Patient is resting comfortably in bed. [place] hard cervical collar is intact. Surgical incision to the posterior cervical spine, dressing is clean dry and intact. She does report moderate tenderness to the posterior cervical spine, controlled on current regimen. Patient feels comfortable with discharged today. No acute concerns at this time. Objective - Vital Signs Vital signs: Vital Signs Temp 97.6 F 01/09/23 01:40 Pulse 87 01/09/23 01:40 Resp 15 01/09/23 01:40 BP 103/67 01/09/23 01:40 Pulse Ox 95 01/09/23 01:40 FiO2 Intake & Output 01/08/23 01/08/23 01/09/23 06:59 18:59 06:59 Intake Total 901 Output Total 15 Balance 886 Weight 98.43 kg 98.43 kg Intake: IV 801 Oral 100 Output: Estimated Blood Loss 15 Other: Voiding Method Toilet Toilet # Voids 0 1 - Exam Inspection: Surgical incision to the posterior cervical spine, dressing is clean dry and intact. Sensation: Sensation is equal, symmetric, bilaterally intact throughout the upper and lower extremities Palpation: Nontender to palpation throughout bilateral upper and lower extremities and throughout spine exam Range of motion: Patient does have full range of motion bilateral upper and lower extremities on exam Motor: 5/5 in all major motor groups in the bilateral upper and lower extremities Special tests: Negative Homans bilaterally. Negative Elliott bilaterally. Negative clonus bilaterally. Neurovascular: Radial pulse intact, 2+ bilaterally. Cap refill under 3 seconds in digits upper extremities. - Labs CBC & Chem 7: 01/08/23 05:25 01/08/23 05:25 Labs: Abnormal Lab Results - Last 24 Hours (Table) 01/08/23 01/08/23 01/08/23 Range/Units 05:25 05:25 15:01 RBC 3.28 L (4.10-5.20) X 10*6/uL Hgb 9.6 L (12.0-15.0) g/dL Hct 32.2 L (37.2-46.3) % MCV 98.2 H (80.0-97.0) FL MCHC 29.8 L (32.0-37.0) g/dL RDW 14.7 H (11.5-14.5) % Plt Count 121 L (140-440) X 10*3/uL Est GFR (CKD-EPI) 55 L (>=60) POC Glucose (mg/dL) 65 L (70-110) mg/dL 01/08/23 01/08/23 01/09/23 Range/Units 15:17 20:27 06:04 RBC (4.10-5.20) X 10*6/uL Hgb (12.0-15.0) g/dL Hct (37.2-46.3) % MCV (80.0-97.0) FL MCHC (32.0-37.0) g/dL RDW (11.5-14.5) % Plt Count (140-440) X 10*3/uL Est GFR (CKD-EPI) (>=60) POC Glucose (mg/dL) 118 H 192 H 166 H (70-110) mg/dL Microbiology - Last 24 Hours (Table) 01/07/23 17:40 Blood Culture - Preliminary Blood 01/07/23 19:38 Gram Stain - Preliminary Neck Assessment and Plan Assessment: Postop day 1: I&D with wound revision posterior neck s/p post-op 4 week C2-T2 decompression and fusion delayed wound healing ulceration of posterior cervical incision multiple complex comorbidities Plan: -Appreciate tax credit leasing consultant and team management. -Activity: Ambulate QID, OOB all meals, up and about, limit lifting bending twisting to less than 5 lbs. Use walker or cane if needed for stability. -Daily PT/OT, increase ambulation strength and balance. -[place] hard cervical collar when up and about, soft cervical collar in bed or chair -Pain control: Adequate at this time -Meds: reviewed -GI ppx: senna, Miralax -DVT PPX: Aspirin -Hygiene: Shower today. Maintain dressing clean and dry. Meticulous cleaning after BMs away from the incision site -Encourage IS 10x/hr -Dispo: Anticipate discharge home tomorrow with homecare *I reviewed and discussed this case with my attending Dr. Meeks, whom has reviewed this chart and films and is in agreement with assessment and plan of care as outlined above. I have personally seen and examined the patient, performed the documentation and the assessment and plan as written. Number of minutes spent on the visit: 15m.
[2023-01-09] MEDS: BUDESONIDE 0.5 MG/2 ML NEBU INHALATION SCH ×2 (08:49→19:52)
[2023-01-09] MEDS: IPRATROPIUM 0.5 MG/2.5 ML NEBU INHALATION SCH ×4 (08:49→19:52)
[2023-01-09] MEDS ORDERED: DOCUSATE 100 MG CAP PO SCH (09:00)
[2023-01-09 09:36] LABS: Basophils # (A) 0.01 X 10*3/uL (0.00-0.10); Basophils % (A) 0.2 %; Eosinophils # (A) 0 X 10*3/uL (0.04-0.35); Eosinophils % (A) 0 %; HCT 29.6 % (37.2-46.3); HGB 8.9 g/dL (12.0-15.0); Lymphocytes # (A) 0.62 X 10*3/uL (0.90-5.00); Lymphocytes % (A) 12.5 %; MCH 29.7 pg (27.0-32.0); MCHC 30.1 g/dL (32.0-37.0); MCV 98.7 FL (80.0-97.0); Mean Platelet Volume 11.4 FL (9.5-12.2); Monocytes # (A) 0.22 X 10*3/uL (0.20-1.00); Monocytes % (A) 4.4 %; NRBC Per 100 WBC 0 X 10*3/uL (0.00-0.01); Neutrophils % (A) 82.5 %; Platelet Count 109 X 10*3/uL (140-440); RDW 14.6 % (11.5-14.5); WBC 4.97 X 10*3/uL (4.50-10.00)
[2023-01-09 09:50] LABS: ALT 19 U/L (8-44); AST 27 U/L (13-35); Albumin 3.4 g/dL (3.8-4.9); Alkaline Phosphatase 139 U/L (41-126); BUN/Creat Ratio 19.33 Ratio (12.00-20.00); Blood Urea Nitrogen 23.2 mg/dL (9.0-27.0); Calcium 8.8 mg/dL (8.7-10.3); Carbon Dioxide 22.8 mmol/L (21.6-31.8); Chloride 110 mmol/L (96-109); Globulin 1.7 g/dL (1.6-3.3); Glucose 216 mg/dL (70-110); Sodium 141 mmol/L (135-145); Total Bilirubin 0.2 mg/dL (0.3-1.2); Total Protein 5.1 g/dL (6.2-8.2)
[2023-01-09 12:11] LABS: Glucose,Whole Blood 161 mg/dL (70-110)
[2023-01-09] MEDS: VANCOMYCIN 1,500 MG in SODIUM CHLORIDE 0.9% 500 ML 500 ML IVPB SCH (12:17)
--- NOTE | 2023-01-09 12:32 | P.PN ---
Subjective Progress Note Date: 01/09/23 Principal diagnosis: Posterior neck surgical site infection Patient is a 67-year-old female with a past medical history significant for diabetes mellitus hyperlipidemia reflux pneumonia in this patient who is status post C2-T2 decompression and fusion surgery that was done on 12/08/2022, admitted to the hospital with nonhealing of the wound and drainage feeling outpatient oral Keflex therapy. 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 at this point On today's evaluation that is 01/09/2023, the patient remains to be afebrile, the patient is breathing comfortably on room air , the patient denies any chest pain or any cough , patient denies nausea/vomiting diarrhea and no abdominal pain, patient still complaining of pain to the neck area Patient did have marginal 4.97, creatinine 1.2, blood and neck cultures done in the ER are currently pending no OR cultures available in the system Objective - Vital Signs Vital signs: Vital Signs Temp 97.6 F 01/09/23 08:00 Pulse 88 01/09/23 09:03 Resp 17 01/09/23 08:00 BP 117/67 01/09/23 08:00 Pulse Ox 96 01/09/23 08:00 FiO2 Intake & Output 01/08/23 01/09/23 01/09/23 18:59 06:59 18:59 Intake Total 901 500 Output Total 15 Balance 886 500 Weight 98.43 kg Intake: IV 801 Oral 100 500 Output: Estimated Blood Loss 15 Other: Voiding Method Toilet Toilet Toilet # Voids 1 - Exam GENERAL DESCRIPTION: An elderly female lying in bed in no distress HEENT: Posterior neck incision is currently dressed RESPIRATORY SYSTEM: Unlabored breathing , clear to auscultation anteriorly HEART: S1 S2 regular rate and rhythm , ABDOMEN: Soft , no tenderness EXTREMITIES: No edema feet - Labs CBC & Chem 7: 01/09/23 04:10 01/09/23 04:10 Labs: Abnormal Lab Results - Last 24 Hours (Table) 01/08/23 01/08/23 01/08/23 Range/Units 15:01 15:17 20:27 RBC (4.10-5.20) X 10*6/uL Hgb (12.0-15.0) g/dL Hct (37.2-46.3) % MCV (80.0-97.0) FL MCHC (32.0-37.0) g/dL RDW (11.5-14.5) % Plt Count (140-440) X 10*3/uL Lymphocytes # (0.90-5.00) X 10*3/uL Eosinophils # (0.04-0.35) X 10*3/uL Chloride (96-109) mmol/L Est GFR (CKD-EPI) (>=60) Glucose (70-110) mg/dL POC Glucose (mg/dL) 65 L 118 H 192 H (70-110) mg/dL Total Bilirubin (0.3-1.2) mg/dL Alkaline Phosphatase (41-126) U/L Total Protein (6.2-8.2) g/dL Albumin (3.8-4.9) g/dL 01/09/23 01/09/23 01/09/23 Range/Units 04:10 04:10 06:04 RBC 3.00 L (4.10-5.20) X 10*6/uL Hgb 8.9 L (12.0-15.0) g/dL Hct 29.6 L (37.2-46.3) % MCV 98.7 H (80.0-97.0) FL MCHC 30.1 L (32.0-37.0) g/dL RDW 14.6 H (11.5-14.5) % Plt Count 109 L (140-440) X 10*3/uL Lymphocytes # 0.62 L (0.90-5.00) X 10*3/uL Eosinophils # 0 L (0.04-0.35) X 10*3/uL Chloride 110 H (96-109) mmol/L Est GFR (CKD-EPI) 49 L (>=60) Glucose 216 H (70-110) mg/dL POC Glucose (mg/dL) 166 H (70-110) mg/dL Total Bilirubin 0.2 L (0.3-1.2) mg/dL Alkaline Phosphatase 139 H (41-126) U/L Total Protein 5.1 L (6.2-8.2) g/dL Albumin 3.4 L (3.8-4.9) g/dL Microbiology - Last 24 Hours (Table) 01/07/23 17:40 Blood Culture - Preliminary Blood 01/07/23 19:38 Gram Stain - Preliminary Neck Assessment and Plan (1) Surgical site infection Current Visit: Yes Status: Acute Code(s): T81.49XA - INFECTION FOLLOWING A PROCEDURE, OTHER SURGICAL SITE, INIT SNOMED Code(s): 57115872 (2) Cellulitis, neck Current Visit: Yes Status: Acute Code(s): L03.221 - CELLULITIS OF NECK SNOMED Code(s): 80782999 Plan: Patient with a recent history of C2-T2 decompression and fusion now present to hospital with a wound dehiscence increasing drainage and cellulitis at the surgical site failing outpatient oral Keflex therapy concerning for possible community associated MRSA 2Patient is status post surgical debridement and apparently removal of a retained staple, unfortunately no cultures were done 3Patient to continue with pharmacy to dose with a target trough of 15 while waiting for the ER cultures to finalize to determine her discharge antibiotics Dictation was produced using [employer] dictation software. please excuse any grammatical, word or spelling errors. Time with Patient: Less than 30
[2023-01-09 17:30] LABS: Glucose,Whole Blood 157 mg/dL (70-110)
[2023-01-09 20:33] LABS: Glucose,Whole Blood 159 mg/dL (70-110)
[2023-01-09] MEDS: MONTELUKAST 10 MG TAB PO SCH (20:42)
[2023-01-09] MEDS: TOPIRAMATE 25 MG TAB PO SCH (20:42)
[2023-01-09] MEDS: ATORVASTATIN 20 MG TAB PO SCH (20:42)
[2023-01-09] MEDS: MAGNESIUM OXIDE 400 MG TAB PO SCH (20:42)
[2023-01-09] MEDS: INSULIN DETEMIR (LEVEMIR) 100 UNIT/ML SYR SQ SCH (20:43)
[2023-01-09 20:59] VITALS: RESP 16
[2023-01-10] MEDS: SODIUM CHLORIDE 0.9% 1,000 ML IV SCH ×3 (02:59→14:32)
[2023-01-10 06:05] LABS: Glucose,Whole Blood 100 mg/dL (70-110)
[2023-01-10] MEDS: MIDODRINE 5 MG TAB PO SCH ×2 (06:21→13:16)
[2023-01-10] MEDS: carvediloL 3.125 MG TAB PO SCH (06:21)
[2023-01-10] MEDS: IPRATROPIUM 0.5 MG/2.5 ML NEBU INHALATION SCH ×3 (07:46→15:33)
[2023-01-10] MEDS: BUDESONIDE 0.5 MG/2 ML NEBU INHALATION SCH (07:46)
[2023-01-10] MEDS: [UNRECOGNIZED DRUG - OTHER] INHALATION SCH (07:49)
[2023-01-10] MEDS ORDERED: CEFEPIME 2 GM in SODIUM CHLORIDE 0.9% 100 ML IVPB SCH (08:00)
[2023-01-10] MEDS: allopurinoL 100 MG TAB PO SCH (09:22)
[2023-01-10] MEDS: GABAPENTIN 300 MG CAP PO SCH ×2 (09:22→15:27)
[2023-01-10] MEDS: SERTRALINE 50 MG TAB PO SCH (09:22)
[2023-01-10] MEDS: oxyCODONE-APAP 10-325MG 1 EACH TAB PO PRN ×2 (09:22→15:27)
[2023-01-10] MEDS: MECLIZINE 12.5 MG TAB PO SCH (09:22)
[2023-01-10] MEDS: FERROUS SULFATE 325 MG TAB PO SCH (09:23)
[2023-01-10 11:33] LABS: Glucose,Whole Blood 145 mg/dL (70-110)
--- NOTE | 2023-01-10 11:55 | P.PN ---
Subjective Progress Note Date: 01/10/23 Principal diagnosis: Posterior neck surgical site infection Patient is a 67-year-old female with a past medical history significant for diabetes mellitus hyperlipidemia reflux pneumonia in this patient who is status post C2-T2 decompression and fusion surgery that was done on 12/08/2022, admitted to the hospital with nonhealing of the wound and drainage feeling outpatient oral Keflex therapy. 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 at this point On today's evaluation that is 01/10/2023, the patient denies any fever or any chills, the patient is breathing comfortably on room air without any need for supplemental oxygen, the patient denies any chest pain or any cough , patient denies abdominal pain, no nausea/vomiting diarrhea , patient pain to the neck area has slightly decreased in intensity Patient did have marginal 4.97, creatinine 1.2 as of 01/09/2023, blood culture has been negative, culture done in the ER did grow pseudomonas aeruginosa Objective - Vital Signs Vital signs: Vital Signs Temp 97.6 F 01/10/23 07:05 Pulse 78 01/10/23 11:28 Resp 16 01/10/23 07:05 BP 115/67 01/10/23 07:05 Pulse Ox 94 L 01/10/23 07:05 FiO2 Intake & Output 01/09/23 01/10/23 01/10/23 18:59 06:59 18:59 Intake Total 620 250 Balance 620 250 Intake: Oral 620 250 Other: Voiding Method Toilet Toilet # Voids 3 - Exam GENERAL DESCRIPTION: An elderly female lying in bed in no distress HEENT: Posterior neck incision is intact swelling redness slightly decreased RESPIRATORY SYSTEM: Unlabored breathing , clear to auscultation anteriorly HEART: S1 S2 regular rate and rhythm , ABDOMEN: Soft , no tenderness EXTREMITIES: No edema feet - Labs CBC & Chem 7: 01/09/23 04:10 01/09/23 04:10 Labs: Abnormal Lab Results - Last 24 Hours (Table) 01/09/23 01/09/23 01/09/23 Range/Units 12:09 17:27 20:32 POC Glucose (mg/dL) 161 H 157 H 159 H (70-110) mg/dL 01/10/23 Range/Units 11:30 POC Glucose (mg/dL) 145 H (70-110) mg/dL Microbiology - Last 24 Hours (Table) 01/07/23 19:38 Gram Stain - Final Neck Wound Culture - Final Pseudomonas aeruginosa 01/07/23 17:40 Blood Culture - Preliminary Blood Assessment and Plan (1) Surgical site infection Current Visit: Yes Status: Acute Code(s): T81.49XA - INFECTION FOLLOWING A PROCEDURE, OTHER SURGICAL SITE, INIT SNOMED Code(s): 77929431 (2) Cellulitis, neck Current Visit: Yes Status: Acute Code(s): L03.221 - CELLULITIS OF NECK SNOMED Code(s): 95998664 Plan: Patient with a recent history of C2-T2 decompression and fusion now present to hospital with a wound dehiscence increasing drainage and cellulitis at the surgical site failing outpatient oral Keflex therapy concerning for possible community associated MRSA 2Patient is status post surgical debridement and apparently removal of a retained staple, unfortunately no cultures were done 3Patient ER cultures has been finalized with Pseudomonas that is a sensitive pathogen vancomycin was discontinued she's been started on cefepime however the patient will be able to finish therapy with oral Cipro and close out patient follow-up prescription was sent to the pharmacy Dictation was produced using [employer] dictation software. please excuse any grammatical, word or spelling errors. Time with Patient: Less than 30
[2023-01-10] MEDS: DOCUSATE 100 MG CAP PO SCH (13:15)
--- NOTE | 2023-01-10 14:57 | PN ---
PROGRESS NOTE SUBJECTIVE: This is a 67-year-old white female, status post cervical surgery for cellulitis of the cervical spine, waiting for final cultures to decide what antibiotics the patient should go home on. OBJECTIVE: CARDIOVASCULAR: S1 and S2. LUNGS: Transmitted upper airway sounds. HEMATOLOGY: Negative Homans. PSYCHIATRIC: Fair mood and affect. NEUROLOGIC: Alert and oriented x3. PLAN: Continue current treatments. Follow up in the next 24 to 48 hours. Wait for final cultures. Continue with Accu-Cheks and diabetic control updrafts. Prognosis is guarded. Please see further orders. MMODL / IJN: [id number] /
[2023-01-10 15:28] VITALS: BP 119/74; TEMP 98
[2023-01-10 15:49] VITALS: PULSE 80
[2023-01-11] MEDS ORDERED: VANCOMYCIN TROUGH DUE 1 EACH MISC MISCELLANE ONE (11:00)
--- NOTE | 2023-01-13 07:05 | CDI ---
Documentation Clarification Form Date: 01/13/2023 06:53:55 AM From: Heidi Knowles Admit Date: 01/07/2023 04:59:00 PM Patient Name: Yani Andino Visit Number: [id number] Discharge Date: 01/10/2023 05:23:00 PM ATTENTION: The Clinical Documentation Specialists (CDI) and [facility] Coding Staff appreciate your assistance in clarifying documentation. Please respond to the clarification below the line at the bottom and electronically sign. The CDI & [facility] Coding staff will review the response and follow-up if needed. Please note: Queries are made part of the Legal Health Record. If you have any questions, please contact the author of this message via ITS. Dr. Vishal Snell Conflicting documentation has been found in the medical record. As attending physician, please provide clarification. Per H and P End stage chronic renal disease Per ID consult and Ortho consults CKD stage III History/Risk Factors: personal history of kidney stones, diabetes Clinical Indicators: BUN - 25 Creat - 1.12 GFR - 51 Please clarify which diagnosis is most appropriate: [ ] End stage chronic renal disease [ ] CKD Stage III [ ] Other (please specify) [ ] Unable to determine MTDD
--- NOTE | 2023-01-14 13:54 | P.OP ---
Date of Procedure: 01/08/23 Preoperative Diagnosis: 1. Posterior neck wound dehiscence 2. Neck pain Postoperative Diagnosis: 1. Posterior neck wound dehiscence 2. Neck pain Procedure(s) Performed: 1. Incision and drainage with excisional debridment of posterior neck 10x5x6 cm using knife for skin removal and scarr removal, stat for suture removal. Implants: none Anesthesia: GETA Surgeon: Jomar Meeks Landscaper #1: Jayleen Beach (Was present and assisted with all aspects of the case from positin to closure) Estimated Blood Loss (ml): 25 IV fluids (ml): 1,000 Urine output (ml): 0 Pathology: none sent Condition: stable Disposition: PACU Indications for Procedure: Yani Andino is a 67 yo female presenting for evaluation of continued drainage posterior neck s/p C2-T2 decompression and fusion. It was my pleasure to have seen and examined Yani Andino. In our visit today we have had a chance to go over subjective complaints, physical examination findings and treatments including the natural course history without intervention and various interventional options. The patients imaging demonstrates no complicating process post op changes to the neck . On physical exam, Yani Houghondemonstrates wound dehiscence posterior neck mid portion 4 cm with some drainage. I have explained to the patient that as their condition progresses it will cause further neurological deficits and eventual paralysis. Based on the patients imaging, physical exam, and the rapid progression and disabling nature of their symptoms, at this time I recommend surgery in the form or a: Posterior neck debridment and closure. . I discussed the risk and benefits of this procedure at length with Yani Andino. The patient family agreed to considered pursuing the procedure abovementioned. Prior to surgery, she should follow up with her PCP (Cardio, ID, IM etc) for clearance. Questions were invited and answered, and the patient wishes to proceed as outlined below. Currently, I am recommendin. I&D with wound revision posterior neck Description of Procedure: The patient was seen and examined in the preoperative area. All preoperative protocols were followed. Informed consent was obtained risks and benefits of the procedure were discussed at length. Risks including bleeding infection damage to the surrounding tissue and risk of reoperation were discussed with the patient. Risk of anesthesia up to and including was a discussed with the patient. These are outlined in the risk review. They were willing to accept these risks and all of the risks of surgery. The patient was given a weight-based dose of antibiotics in the form of vancomycin weight-based dose. The patient was seen and evaluated by the anesthesia team who deemed them fit for surgery. The site was marked, the patient was willing to proceed with the procedure. The patient was transferred to the operative suite by the Department of anesthesia. They were then drifted off to sleep by the department anesthesia and GETA was performed. The patient tolerated this well. [Reddy catheter was placed by nursing staff, atraumatically]. Once confirmation of lines and ventilation the patient was transferred to a prone Nic table very carefully in a Brush overhead irrigator. All bony prominences including wrists, elbows, axilla, chest, hips, and thighs, and feet were padded very well. Special attention was paid to the genitalia and these were padded accordingly. SCDs were placed on bilateral lower extremities and were connected. Arms were well padded and placed tucked at her side well-padded thumbs down. Once in position, again we confirmed good ventilation capabilities and that lines were running appropriately. The patient's posterior cervical spine was then exposed. 1010s were placed outlining the incision site. Standard alcohol was used to clean the incision site and allowed to dry. C-arm was used to biomark the patient and confirm level for incision which was marked with a skin marker. Operative briefing was performed with all teams and everyone in agreement to proceed. The patient was then prepped and draped in a normal sterile fashion. Timeout was then performed and all parties were in agreement with the procedure to be performed. Skin incision was made ellipse size in the area of the posterior neck that had dehisced and taking out any tract in this area. Sutures were removed with a stat and the area was also curetted. This was very superficial and the wound edges dehisced around a likely suture abscess. Did not track deep there is good healing deep. We freshen the wound edges and then irrigated the wound with 6 L of antibiotic irrigant. This was followed with 3 L of normal sterile saline. Once irrigated and debrided the wound was then approximated using 2-0 PDS suture followed by 2 oh nylons in the skin which approximated the wound very well. Once this was completed the wound was cleaned and dressed sterilely with Adaptic 4 x 4's and foam tape. The patient was transferred back to their hospital bed atraumatically. Patient was then awakened and extubated by the department of anesthesia having tolerated the procedure very well with no complications. They were transferred to the postoperative care unit in stable condition.
--- NOTE | 2023-01-15 11:48 | CDI ---
Date: 01/13/2023 06:53:55 AM From: Heidi Knowles Admit Date: 01/07/2023 04:59:00 PM Patient Name: Yani Andino Visit Number: [id number] Discharge Date: 01/10/2023 05:23:00 PM ATTENTION: The Clinical Documentation Specialists (CDI) and [facility] Coding Staff appreciate your assistance in clarifying documentation. Please respond to the clarification below the line at the bottom and electronically sign. The CDI & [facility] Coding staff will review the response and follow-up if needed. Please note: Queries are made part of the Legal Health Record. If you have any questions, please contact the author of this message via ITS. Dr. Vishal Snell Conflicting documentation has been found in the medical record. As attending physician, please provide clarification. Per H and P End stage chronic renal disease Per ID consult and Ortho consults CKD stage III History/Risk Factors: personal history of kidney stones, diabetes Clinical Indicators: BUN - 25 Creat - 1.12 GFR - 51 Please clarify which diagnosis is most appropriate: [ ] End stage chronic renal disease [ ] CKD Stage III [ ] Other (please specify) [ ] Unable to determine MTDD
--- NOTE | 2023-01-17 15:58 | PN ---
PROGRESS NOTE Chronic kidney disease, stage 3. MMODL / IJN: [id number] /
== END 2023-01-10 17:23 | disposition home health service (06) | DRG 863 ==
LOC: OR 15:05 → 4SSUR 16:59 → 6NMEDSUR 01-08 04:49
PROVIDERS: ADMIT Family Medicine; ATTEND Family Medicine
PROC: 0HB4XZZ Excision of Neck Skin, External Approach (ICD-10-PCS; principal; 2023-01-07)
PROC: 0H94XZZ Drainage of Neck Skin, External Approach (ICD-10-PCS; principal; 2023-01-07)
DX: T81.41XA Infection following a procedure, superficial incisional surgical site, initial encounter (principal); L03.221 Cellulitis of neck; T81.31XA Disruption of external operation (surgical) wound, not elsewhere classified, initial encounter; E11.22 Type 2 diabetes mellitus with diabetic chronic kidney disease; E78.5 Hyperlipidemia, unspecified; J45.909 Unspecified asthma, uncomplicated; M10.9 Gout, unspecified; M19.90 Unspecified osteoarthritis, unspecified site; G47.33 Obstructive sleep apnea (adult) (pediatric); L98.499 Non-pressure chronic ulcer of skin of other sites with unspecified severity; N18.30 Chronic kidney disease, stage 3 unspecified; K21.9 Gastro-esophageal reflux disease without esophagitis; I83.93 Asymptomatic varicose veins of bilateral lower extremities; M41.9 Scoliosis, unspecified; F41.9 Anxiety disorder, unspecified; F32.A Depression, unspecified; G89.29 Other chronic pain; G43.909 Migraine, unspecified, not intractable, without status migrainosus; E11.40 Type 2 diabetes mellitus with diabetic neuropathy, unspecified; I95.1 Orthostatic hypotension; Z68.36 Body mass index [BMI] 36.0-36.9, adult; E66.9 Obesity, unspecified; Z87.442 Personal history of urinary calculi; Z87.440 Personal history of urinary (tract) infections; Z79.4 Long term (current) use of insulin; M17.0 Bilateral primary osteoarthritis of knee; Z98.1 Arthrodesis status; Z79.82 Long term (current) use of aspirin; Z79.899 Other long term (current) drug therapy; Z95.810 Presence of automatic (implantable) cardiac defibrillator; Z86.711 Personal history of pulmonary embolism
CPT/HCPCS: 71046; 80048; 80053; 83605; 85025; 85610; 85730; 87040; 87070; 87077; 87186; 87205; 93005; 94640; 96361; 96365; 96366; 99285

== ENCOUNTER 2023-03-09 16:58 | Emergency (ER) | payer MEDICARE, OTHER ==
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
[2023-03-09 19:26] VITALS: RESP 18
[2023-03-09] MEDS ORDERED: KETOROLAC 15 MG/ML 1 ML VIAL IM STA (20:35)
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
[2023-03-09] MEDS ORDERED: ORPHENADRINE 30 MG/ML 2 ML VIAL IM STA (21:21)
--- NOTE | 2023-03-09 22:32 | XR ---
EXAMINATION TYPE: XR lumbosacral spine min 4V DATE OF EXAM: 03/09/2023 9:32 PM CLINICAL INDICATION:Female, 67 years old with history of Trauma; [facility] COMPARISON: None TECHNIQUE: 5 views lumbosacral spine including obliques. FINDINGS: Multilevel laminectomies with posterior fixation rods and transpedicular screws at the L2, L3, L4, L5 , S1 levels, plus additional screws extending across the SI joints terminating in the iliac bones. Le ft lateral support plate and screw at L3-L4 with prosthetic disc interspace material. Another disc sp lali prosthesis is present at L4-5 left of midline. A different disc space prosthesis at L5-S1. Hardwa re appears intact and normally aligned. Generalized osteopenia, could relate to osteoporosis. I see no destructive osseous lesion. Extensive degenerative disk disease and facet arthropathy with slight loss of height of multiple vertebral bodi es suggested, likely chronic. No definite acute fracture is seen. Scattered atherosclerotic calcifications of the aorta. Embolic coil mass seen in the left upper quadr ant. Splenic artery calcifications. Partially seen right upper quadrant clips suggestive of cholecyst ectomy. Partially seen over the heart is what may be the distal end of a pacer lead. IMPRESSION: * No acute radiographic abnormality of the lumbar spine. * Multilevel chronic/degenerative and postoperative changes as above.
[2023-03-09 23:38] VITALS: BP 138/81; PULSE 72; TEMP 98.1
== END 2023-03-09 23:21 | disposition home or self-care (01) ==
LOC: EC 16:58
DX: S16.1XXA Strain of muscle, fascia and tendon at neck level, initial encounter (principal); I67.82 Cerebral ischemia; E11.22 Type 2 diabetes mellitus with diabetic chronic kidney disease; N18.30 Chronic kidney disease, stage 3 unspecified; J45.909 Unspecified asthma, uncomplicated; E78.5 Hyperlipidemia, unspecified; M19.90 Unspecified osteoarthritis, unspecified site; G47.30 Sleep apnea, unspecified; F41.9 Anxiety disorder, unspecified; F32.A Depression, unspecified; Z79.82 Long term (current) use of aspirin; Z79.4 Long term (current) use of insulin; Z79.1 Long term (current) use of non-steroidal anti-inflammatories (NSAID); Z79.899 Other long term (current) drug therapy; W19.XXXA Unspecified fall, initial encounter
CPT/HCPCS: 72110; 72125; 70450; 99284; 96372 ×2; J2360; J1885

== ENCOUNTER 2023-03-16 23:12 | Inpatient (IN) | payer MEDICARE, OTHER ==
--- NOTE | 2023-03-17 01:55 | ED ---
Back Pain HPI - General Chief Complaint: Back Pain/Injury Stated Complaint: Back Pain Time Seen by Provider: 03/17/23 01:53 Source: patient Limitations: no limitations - History of Present Illness Initial Comments: 67-year-old female presented chief complaint of low back pain. About a week ago patient had a slip and fall in the parking lot injuring her back and neck. She was seen here previously and evaluated for this back pain. Patient had negative x-rays and was discharged home. She has had worsening lower back pain since then. She states that at home she has been most of her time lying in bed as she cannot ambulate without severe pain. No loss of bowel or bladder control or saddle paresthesia. No fever, chills, nausea, vomiting, abdominal pain, urinary symptoms. - Related Data Home Medications Medication Instructions Recorded Confirmed Montelukast [Singulair] 10 mg PO HS 11/02/18 03/17/23 Atorvastatin [Lipitor] 20 mg PO HS 09/05/19 03/17/23 Topiramate [Topamax] 50 mg PO HS 09/05/19 03/17/23 Insulin Lispro [humaLOG Kwikpen] 10 unit SQ TID-W/MEALS 02/09/20 03/17/23 Magnesium Oxide [Shaikh] 500 mg PO HS 02/09/20 03/17/23 Cyanocobalamin (Vitamin B-12) 1,000 mcg PO DAILY 06/09/22 03/17/23 [Vitamin B-12] Midodrine HCl [ProAmatine] 10 mg PO TID PRN 06/09/22 03/17/23 allopurinoL 100 mg PO DAILY 06/09/22 03/17/23 Albuterol Sulfate [Albuterol 2 puff PO RT-Q4H PRN 01/07/23 03/17/23 Sulfate Hfa] Dupilumab [Dupixent Syringe] 300 mg SQ Q14D 01/07/23 03/17/23 Insulin Glargine,Hum.rec.anlog 30 units SQ HS 01/07/23 03/17/23 [Lantus Solostar Pen] Yuperli 175mcg/3ml 175 mcg INHALATION RT-DAILY 01/07/23 03/17/23 lisinopriL [Zestril] 2.5 mg PO DAILY 01/07/23 03/17/23 Aspirin EC [Ecotrin Low Dose] 81 mg PO DAILY 03/17/23 03/17/23 Ferrous Sulfate [Feosol] 325 mg PO DAILY 03/17/23 03/17/23 Gabapentin 300 mg PO QID PRN 03/17/23 03/17/23 Ketorolac [Toradol] 10 mg PO TID 03/17/23 03/17/23 calcitrioL [Calcitriol] 0.25 mcg PO SUTH 03/17/23 03/17/23 carvediloL 6.25 mg PO BID-W/MEALS 03/17/23 03/17/23 Allergies Allergy/AdvReac Type Severity Reaction Status Date / Time No Known Allergies Allergy Verified 03/16/23 23:47 Review of Systems ROS Statement: Those systems with pertinent positive or pertinent negative responses have been documented in the HPI. ROS Other: All systems not noted in ROS Statement are negative. Past Medical History Past Medical History: Asthma, Diabetes Mellitus, GERD/Reflux, Hyperlipidemia, Musculoskeletal Disorder, Osteoarthritis (OA), Pneumonia, Renal Disease, Sleep Apnea/CPAP/BIPAP, Vascular Disorder Additional Past Medical History / Comment(s): neuropathy bilateral hands/l egs/feet, CKD stage III, hx kidney stones, anemia, UTI/septic due to lodged kidney stone, CARLOS with bipap, bronchitis, orthostatic hypotension with near syncope, vertigo, chronic low back pain/DDD, scoliosis, bilateral carpal tunnel syndrome, bilateral varicosities, migraines, SEE DR ALFORD H&P, gout, hx anemia(from nicked vein in left kidney after surgery for kidney stone), "embolism in my chest" History of Any Multi-Drug Resistant Organisms: None Reported Past Surgical History: AICD, Appendectomy, Back Surgery, Cardiac Ablation, Section, Cholecystectomy, Heart Catheterization, Hysterectomy, Joint Replacement, Orthopedic Surgery, Pacemaker Additional Past Surgical History / Comment(s): Rt knee arthroscopy, john total knee arthroplasty, pain clinic procedures, D&C, colonoscopy, bilateral leg varicose vein surgery, lithotripsies, surgical removal of stones, Myelogram([place]) 2018, Lumbar fusion L3-4, lumbar puncture for headaches 2019 (had spinal headache post), laminectomy, bakers cyst removed from rt knee, john cataracts, 02/12/21 back surgery with complications, cervical fusion Dec 08 Past Anesthesia/Blood Transfusion Reactions: No Reported Reaction Additional Past Anesthesia/Blood Transfusion Reaction / Comment(s): Pt has received blood without reaction. Type of Cardiac Device: Permanent Pacemaker, AICD Device Placement Date:: 09/10/20 Past Psychological History: Anxiety, Depression Smoking Status: Never smoker Past Alcohol Use History: None Reported Past Drug Use History: None Reported - Past Family History Father Family Medical History: Cancer Additional Family Medical History / Comment(s): Stomach cancer. Brother(s) Family Medical History: Cancer Additional Family Medical History / Comment(s): Lung cancer. Sister(s) Family Medical History: Cancer Additional Family Medical History / Comment(s): Sister had stomach/colon/part of pancreas cancers. Mother Family Medical History: Cancer Additional Family Medical History / Comment(s): Ovarian and cervical cancer. General Exam - General Exam Comments Initial Comments: Visual Physical Exam Vital signs reviewed General: Well-appearing, nontoxic, no acute distress. Head: Normocephalic, atraumatic Eyes: PERRLA, EOMI ENT: Airway patent Chest: Nonlabored breathing Skin: No visual rash, normal skin tone Neuro: Alert and oriented 3 Musculoskeletal: No gross abnormalities Limitations: no limitations General appearance: alert, in no apparent distress Head exam: Present: atraumatic, normocephalic Eye exam: Present: normal appearance Neck exam: Present: normal inspection Respiratory exam: Present: normal lung sounds bilaterally. Absent: respiratory distress, wheezes, rales, rhonchi, stridor Cardiovascular Exam: Present: regular rate, normal rhythm, normal heart sounds. Absent: systolic murmur, diastolic murmur, rubs, gallop, clicks Back exam: Present: normal inspection, paraspinal tenderness, vertebral tenderness Neurological exam: Present: alert, oriented X3 Psychiatric exam: Present: normal affect, normal mood Skin exam: Present: warm, dry Course Vital Signs 03/16/23 03/17/23 03/17/23 23:45 06:54 08:26 Temperature 98.5 F 98.2 F Pulse Rate 61 84 58 L Respiratory 18 18 Rate Blood Pressure 143/58 116/71 136/77 O2 Sat by Pulse 94 L 95 93 L Oximetry 03/17/23 03/17/23 14:55 16:38 Temperature 97.9 F 98.1 F Pulse Rate 81 76 Respiratory 18 18 Rate Blood Pressure 107/65 112/68 O2 Sat by Pulse 95 95 Oximetry Medical Decision Making - Medical Decision Making Was pt. sent in by a medical professional or institution (, [employer], DIRECTOR OF [employer] SALES, urgent care, hospital, or [place] health care facility...) When possible be specific @ -No Did you speak to anyone other than the patient for history (EMS, parent, family, police, friend...)? What history was obtained from this source @ -No Did you review nursing and triage notes (agree or disagree)? Why? @ -I reviewed and agree with nursing and triage notes Were old charts reviewed (outside hosp., previous admission, EMS record, old EKG, old radiological studies, urgent care reports/EKG's, [place] health care facility records)? Report findings @ -Recent lumbar spine x-ray reviewed Differential Diagnosis (chest pain, altered mental status, abdominal pain women, abdominal pain men, vaginal bleeding, weakness, fever, dyspnea, syncope, headache, dizziness, GI bleed, back pain, seizure, CVA, palpatations, mental health, musculoskeletal)? @ - MDM Differential Back Pain: Strain, zoster, cauda equina syndrome, epidural abscess, vertebral osteomyelitis, discitis, fracture, subluxation, disc herniation, DJD, spinal stenosis, dissection, AAA, pancreatitis, peptic ulcer disease, pyelonephritis, kidney stone this is not meant to be an all-inclusive list. EKG interpreted by me (3pts min.). @ -As above X-rays interpreted by me (1pt min.). @ -None done CT interpreted by me (1pt min.). @ -CT shows new lucency involving the anterior right T11 vertebra superiorly. Suspicion for soft tissue mass at this level. Lytic metastatic focus is suspected. It extends to the posterior aspect of the vertebrae. Consider MRI without and with contrast to further evaluate if there is spinal canal or cord effacement U/S interpreted by me (1pt. min.). @ -None done What testing was considered but not performed or refused? (CT, X-rays, U/S, labs)? Why? @ -None What meds were considered but not given or refused? Why? @ -None Did you discuss the management of the patient with other professionals (professionals i.e. , [employer], [employer] OF [employer], lab, RT, psych nurse, professor of social work, vegetable inspector, teacher, court officer, family independence case manager)? Give summary @ -My attending spoke with Dr. Snell accepted admission Was smoking cessation discussed for >3mins.? @ -No Was critical care preformed (if so, how long)? @ -No Were there social determinants of health that impacted care today? How? (Homelessness, low income, unemployed, alcoholism, drug addiction, transportation, low edu. Level, literacy, decrease access to med. care, longterm, rehab)? @ -No Was there de-escalation of care discussed even if they declined (Discuss DNR or withdrawal of care, Hospice)? DNR status @ -No What co-morbidities impacted this encounter? (DM, HTN, Smoking, COPD, CAD, Cancer, CVA, ARF, Chemo, Hep., AIDS, mental health diagnosis, sleep apnea, morbid obesity)? @ -None Was patient admitted / discharged? Hospital course, mention meds given and route, prescriptions, significant lab abnormalities, going to OR and other pertinent info. @ -67-year-old female presenting with chief complaint of lower back pain. Pain has been persistent for the last week after slip and fall in the parking lot. She had negative x-rays on the day of her injury. Unable to ambulate due to the pain. No red flag symptoms. History and physical exam were conducted. CT is concerning for soft tissue mass involving T11. Patient's pain is intractable after Toradol, Norflex, lidocaine patch, and Dilaudid. Patient will be admitted for pain management with ortho consult placed for abnormal CT. Patient is agreeable with this plan. Basic labs are ordered. I discussed this case my attending Dr. Wolf Undiagnosed new problem with uncertain prognosis? @ -No Drug Therapy requiring intensive monitoring for toxicity (Heparin, Nitro, Insulin, Cardizem)? @ -No Were any procedures done? @ -No Diagnosis/symptom? @ -Intractable back pain, soft tissue mass involving T11 Acute, or Chronic, or Acute on Chronic? @ -Acute Uncomplicated (without systemic symptoms) or Complicated (systemic symptoms)? @ -Complicated Side effects of treatment? @ -No Exacerbation, Progression, or Severe Exacerbation? @ -No Poses a threat to life or bodily function? How? (Chest pain, [place], [place], pneumonia, PE, COPD, DKA, ARF, appy, cholecystitis, CVA, Diverticulitis, Homicidal, Suicidal, threat to staff... and all critical care pts) @ -Yes - Lab Data Result diagrams: 03/17/23 06:20 03/17/23 06:20 Disposition Clinical Impression: Intractable back pain, Mass of thoracic vertebra Disposition: ADMITTED IP TO THIS HOSP Condition: Fair Time of Disposition: 05:09
[2023-03-17] MEDS ORDERED: LIDOCAINE 4% PATCH TOPICAL ONE (02:41)
[2023-03-17] MEDS ORDERED: ORPHENADRINE 30 MG/ML 2 ML VIAL IM STA (02:41)
[2023-03-17] MEDS ORDERED: KETOROLAC 15 MG/ML 1 ML VIAL IM STA (02:41)
[2023-03-17] MEDS ORDERED: HYDROmorphone 1 MG/ML 1 ML SYRINGE IM STA (03:42)
--- NOTE | 2023-03-17 04:55 | CT ---
EXAMINATION TYPE: CT lumbar spine wo con DATE OF EXAM: 03/17/2023 3:37 AM COMPARISON: Prior CT thoracic and lumbar spine June 14, 2022 HISTORY: Low back pain. Falling injury one week ago. CT DLP: 1857 mGycm Automated exposure control for dose reduction was used. Unenhanced CT of the lumbar spine was performed. Bone and soft tissue window settings are submitted as well as coronal and sagittal reconstructions. There are 5 lumbar type vertebra are redemonstrated. Posterior interpedicular rods and screws run fro m L2 level bilaterally through the sacrum into the bilateral iliac bones to the sacroiliac joints sim ilar to prior. Multilevel surgical change to the disc is redemonstrated. There are bridging osteophyt es throughout the thoracolumbar spine superior to this no acute displaced fracture. Posterior multile aurelio laminectomy defects and spinous process resection is seen. There is no suspicious lytic lesion involving the anterior right T11 vertebra extending through the b ridging osteophyte measuring near 1.8 cm sagittal image 37 no definitive additional new lytic lesions are present. Spinal canal is grossly preserved. No suspicious abnormality clearly seen in the visual ized abdomen or pelvis. Some cortical thinning of both kidneys is noted with embolization coils or crawford rgical clips in the central left kidney redemonstrated. IMPRESSION: New lucency involving the anterior right T11 vertebra superiorly. Suspicion for soft tiss ue mass at this level. Lytic metastatic focus is suspected. This extends to posterior aspect of the v ertebra. Consider MRI without and with contrast to further evaluate if there is spinal canal or cord effacement.
[2023-03-17] MEDS ORDERED: ACETAMINOPHEN TAB 325 MG TAB PO PRN (05:05)
[2023-03-17] MEDS ORDERED: NALOXONE 0.4 MG/ML 1 ML VIAL IV PRN (05:05)
[2023-03-17] MEDS ORDERED: ONDANSETRON 4 MG/2 ML VIAL IVP PRN (05:05)
[2023-03-17] MEDS: HYDROmorphone 1 MG/ML 1 ML SYRINGE IVP PRN ×5 (06:23→22:22)
[2023-03-17 06:33] LABS: Basophils % (A) 0 %; Eosinophils % (A) 1 %; HGB 12.1 gm/dL (11.4-16.0); Hypochromasia Slight; Lymphocytes # (A) 1.2 k/uL (1.0-4.8); Lymphocytes % (A) 14 %; MCH 28.7 pg (25.0-35.0); MCHC 31.9 g/dL (31.0-37.0); Mean Platelet Volume 8.8; Monocytes # (A) 0.5 k/uL (0-1.0); Monocytes % (A) 6 %; Neutrophils # (A) 6.4 k/uL (1.3-7.7); Neutrophils % (A) 77 %; Platelet Count 102 k/uL (150-450); RBC 4.22 m/uL (3.80-5.40); RDW 15.5 % (11.5-15.5); WBC 8.4 k/uL (3.8-10.6)
[2023-03-17 06:42] LABS: ALT 18 U/L (4-34); African American GFR (CKD) 58 (>60 ml/min/1.73 sqM); Anion Gap 5 mmol/L; Blood Urea Nitrogen 52 mg/dL (7-17); Calcium 9.8 mg/dL (8.4-10.2); Carbon Dioxide 25 mmol/L (22-30); Chloride 107 mmol/L (98-107); Glucose 163 mg/dL (74-99); Non-African American GFR(CKD) 50 (>60 ml/min/1.73 sqM); Sodium 137 mmol/L (137-145)
[2023-03-17 06:45] LABS: AST 45 U/L (14-36); Albumin 3.7 g/dL (3.5-5.0); Alkaline Phosphatase 147 U/L (38-126); Potassium 5.3 mmol/L (3.5-5.1); Total Protein 6.3 g/dL (6.3-8.2)
[2023-03-17 08:26] LABS: Glucose,Whole Blood 132 mg/dL (70-110)
[2023-03-17] MEDS: HYDROcodone/APAP 5-325MG 1 EACH TAB PO PRN ×2 (08:51→21:12)
[2023-03-17] MEDS ORDERED: MIDODRINE 5 MG TAB PO PRN (12:56)
--- NOTE | 2023-03-17 14:42 | P.CNOR ---
History of Present Illness - [facility] Consult date: 03/17/23 Requesting physician: Gerson Montes Consult reason: other (soft tissue mass T11) History of present illness: Patient is a 59-year-old female who presented to the emergency department this morning with a chief complaint of low back pain. Orthopedics was consulted due to T11 soft tissue mass. Patient seen at bedside this afternoon in the emergency department lines; positioned bed. Patient states about 1 week ago she was in hospital parking lot when she fell landing in the grass on her bottom. Patient states since last Thursday when she fell she has had intense low back pain and has not been able to walk under her own power. Patient did have [id number] decompression and fusion surgery in the fall of [address] Meeks. Patient says she normally ambulates with the use of a cane at baseline. Patient says since the fall last week she has been unable to walk on her own. Patient states her primary care doctor, Dr. Snell has prescribed her pain medication, without much relief. Patient says normally she takes gabapentin and Dexter for pain at home. Patient states the pain is mostly across the low back and is worse on the right side. Patient denies any pain down the lower extremities. Patient denies radiation of pain. Patient denies saddle anesthesia. Patient denies any loss of bowel/bladder control. Patient denies any other significant symptoms since the fall. Patient says she has pacemaker so she is unable to have an MRI. Patient denies chest pain, fever, shortness breath, nausea, vomiting, change in vision, loss of bowel/bladder control. Past Medical History Past Medical History: Asthma, Diabetes Mellitus, GERD/Reflux, Hyperlipidemia, Musculoskeletal Disorder, Osteoarthritis (OA), Pneumonia, Renal Disease, Sleep Apnea/CPAP/BIPAP, Vascular Disorder Additional Past Medical History / Comment(s): neuropathy bilateral hands/legs/feet, CKD stage III, hx kidney stones, anemia, UTI/septic due to lodged kidney stone, CARLOS with bipap, bronchitis, orthostatic hypotension with near syncope, vertigo, chronic low back pain/DDD, scoliosis, bilateral carpal tunnel syndrome, bilateral varicosities, migraines, SEE DR ROCÍO Friedman&P, gout, hx anemia(from nicked vein in left kidney after surgery for kidney stone), "embolism in my chest" History of Any Multi-Drug Resistant Organisms: None Reported Past Surgical History: AICD, Appendectomy, Back Surgery, Cardiac Ablation, Section, Cholecystectomy, Heart Catheterization, Hysterectomy, Joint Replacement, Orthopedic Surgery, Pacemaker Additional Past Surgical History / Comment(s): Rt knee arthroscopy, john total knee arthroplasty, pain clinic procedures, D&C, colonoscopy, bilateral leg varicose vein surgery, lithotripsies, surgical removal of stones, Myelogram([place]) 2018, Lumbar fusion L3-4, lumbar puncture for headaches 2019 (had spinal headache post), laminectomy, bakers cyst removed from rt knee, john cataracts, 02/12/21 back surgery with complications, cervical fusion Dec 08 Past Anesthesia/Blood Transfusion Reactions: No Reported Reaction Additional Past Anesthesia/Blood Transfusion Reaction / Comm: Pt has received blood without reaction. Type of Cardiac Device: Permanent Pacemaker, AICD Device Placement Date:: 09/10/20 Past Psychological History: Anxiety, Depression Smoking Status: Never smoker Past Alcohol Use History: None Reported Past Drug Use History: None Reported - Past Family History Father Family Medical History: Cancer Additional Family Medical History / Comment(s): Stomach cancer. Brother(s) Family Medical History: Cancer Additional Family Medical History / Comment(s): Lung cancer. Sister(s) Family Medical History: Cancer Additional Family Medical History / Comment(s): Sister had stomach/colon/part of pancreas cancers. Mother Family Medical History: Cancer Additional Family Medical History / Comment(s): Ovarian and cervical cancer. Medications and Allergies Home Medications Medication Instructions Recorded Confirmed Type Montelukast [Singulair] 10 mg PO HS 11/02/18 03/17/23 History Atorvastatin [Lipitor] 20 mg PO HS 09/05/19 03/17/23 History Topiramate [Topamax] 50 mg PO HS 09/05/19 03/17/23 History Insulin Lispro [humaLOG Kwikpen] 10 unit SQ TID-W/MEALS 02/09/20 03/17/23 History Magnesium Oxide [Shaikh] 500 mg PO HS 02/09/20 03/17/23 History Cyanocobalamin (Vitamin B-12) 1,000 mcg PO DAILY 06/09/22 03/17/23 History [Vitamin B-12] Midodrine HCl [ProAmatine] 10 mg PO TID PRN 06/09/22 03/17/23 History allopurinoL 100 mg PO DAILY 06/09/22 03/17/23 History Albuterol Sulfate [Albuterol 2 puff PO RT-Q4H PRN 01/07/23 03/17/23 History Sulfate Hfa] Dupilumab [Dupixent Syringe] 300 mg SQ Q14D 01/07/23 03/17/23 History Insulin Glargine,Hum.rec.anlog 30 units SQ HS 01/07/23 03/17/23 History [Lantus Solostar Pen] Yuperli 175mcg/3ml 175 mcg INHALATION RT-DAILY 01/07/23 03/17/23 History lisinopriL [Zestril] 2.5 mg PO DAILY 01/07/23 03/17/23 History Aspirin EC [Ecotrin Low Dose] 81 mg PO DAILY 03/17/23 03/17/23 History Ferrous Sulfate [Feosol] 325 mg PO DAILY 03/17/23 03/17/23 History Gabapentin 300 mg PO QID PRN 03/17/23 03/17/23 History Ketorolac [Toradol] 10 mg PO TID 03/17/23 03/17/23 History calcitrioL [Calcitriol] 0.25 mcg PO SUTH 03/17/23 03/17/23 History carvediloL 6.25 mg PO BID-W/MEALS 03/17/23 03/17/23 History Allergies Allergy/AdvReac Type Severity Reaction Status Date / Time No Known Allergies Allergy Verified 03/16/23 23:47 Physical Examination Inspection: Negative for any open fracture, significant erythema/ecchymosis/open wound. Sensation: Equal, symmetric, bilaterally intact throughout the upper and lower extremities. Palpation: Significant TTP diffusely throughout the lumbar spine at midline and on the right and left. Moderate TTP at midline in lower thoracic spine. NTTP throughout rest of exam Range of motion: Patient does have good range of motion bilateral lower extremities on exam. There is referred pain to the low back during hip flexion and extension bilaterally as well as knee flexion bilaterally. Patient has full ROM throughout bilateral upper extremities on exam. Motor: 4/5 in all major motor groups in bilateral lower extremities on exam. 4+/5 in all major motor groups in bilateral upper extremities Special tests: Negative Homans bilaterally. Negative clonus. Negative Elliott bilaterally Neurovascular: Radial pulses intact, 2+ bilaterally. DP pulses palpable bilaterally. Cap refill under 3 seconds in digits of upper extremities. Results - Labs Labs: Abnormal Lab Results - Last 24 Hours (Table) 03/17/23 03/17/23 03/17/23 Range/Units 06:20 06:20 08:22 Plt Count 102 L (150-450) k/uL Potassium 5.3 H (3.5-5.1) mmol/L BUN 52 H (7-17) mg/dL Creatinine 1.13 H (0.52-1.04) mg/dL Glucose 163 H (74-99) mg/dL POC Glucose (mg/dL) 132 H (70-110) mg/dL AST 45 H (14-36) U/L Alkaline Phosphatase 147 H (38-126) U/L H & H 03/17/23 Range/Units 06:20 Hgb 12.1 (11.4-16.0) gm/dL Hct 38.0 (34.0-46.0) % Result Diagrams: 03/17/23 06:20 03/17/23 06:20 - Diagnostic results CT Scan - lumbar: report reviewed, image reviewed (CT of lumbar spine does reveal screws and rods that appeared to be well aligned and intact. Negative for any significant encroachment on the cord. Soft tissue mass is suspected at the level of T11) Assessment and Plan Assessment: 1. Low back pain status post recent fall; history of [id number] decompression fusion Plan: 1. Low back pain status post recent fall; history of [id number] decompression fusion - patient examined bedside this afternoon in the ER. CT of lumbar spine does reveal screws and rods that appeared to be well aligned and intact. Negative for any significant encroachment on the cord. Soft tissue mass is suspected at the level of T11. I will discuss findings of the exam and computed tomography scan with my attending, Dr. Meeks before proceeding with any potential orthopedic intervention. At this time continue with conservative measures such as pain medication. Patient may benefit from steroids. We will continue to follow patient during stay in hospital. Further recommendations pending. 2. Appreciate medical management 3. Pain management - norco; gabapentin 4. DVT prophylaxis - aspirin 5. GI prophylaxis - senna 6. PT/OT - weightbearing as tolerated with walker and assistance 7. Encourage incentive spirometer use 8. Appreciate consult Time with Patient: Less than 30
[2023-03-17] MEDS: ETODOLAC 300 MG CAPSULE PO SCH ×2 (15:27→21:15)
[2023-03-17] MEDS: IPRATROPIUM-ALBUTEROL 3 ML NEB INHALATION SCH ×3 (16:07→19:46)
[2023-03-17 17:34] LABS: Glucose,Whole Blood 169 mg/dL (70-110)
[2023-03-17] MEDS: methylPREDNISolone SOD SUCCI 40 MG/ML 1 ML VIAL IV SCH (18:33)
[2023-03-17] MEDS: INSULIN ASPART (NovoLOG) 100 UNIT/ML VIAL SQ SCH (18:33)
[2023-03-17] MEDS: carvediloL 6.25 MG TAB PO SCH (18:33)
--- NOTE | 2023-03-17 19:38 | HP ---
HISTORY AND PHYSICAL HISTORY OF PRESENT ILLNESS: This 67-year-old white female came with low back pain, has severe swelling in her lower back, possible hematoma versus surgical complication, unable to walk, severe pain, 10/10, admitted for pain control and neurosurgery evaluation. HOME MEDICINES: 1. Singulair 10 mg daily. 2. Lipitor 20 mg daily. 3. Antivert 12.5 b.i.d. 4. Topamax 50 at night. 5. Rocaltrol 0.25 once a week. 6. Colace 100 mg daily. 7. Magnesium oxide 1000 daily. 8. Vitamin B12 daily. 9. Allopurinol 100 daily. 10.Midodrine 10 t.i.d. 11.Aspirin 325 daily. 12.Gabapentin 600 t.i.d. 13.Ecotrin 325 daily. 14.Spiriva 2 puffs daily. 15.Insulin Lantus 36 units daily. 16.Yupelri 175 daily. 17.Coreg 3.125 b.i.d. 18.Zestril 2.5 mg daily. 19.Percocet 10 q.i.d. ALLERGIES: Negative. SURGICAL HISTORY: Reviewed. PAST MEDICAL HISTORY: Reviewed. She has orthostatic hypotension also. FAMILY HISTORY: Father with cancer of stomach. PHYSICAL EXAMINATION: VITAL SIGNS: Temperature 98.5, pulse 61, respiratory rate 16 to 18, blood pressure 142/58, and O2 94. GENERAL: Obese white female, BMI is over 40. PSYCH: Fair mood and affect. NEUROLOGIC: Cranial nerves intact. SKIN: No rash, excoriations, or bruising. She has mild swelling over the lumbar spine. LUNGS: Decreased breath sounds on lung exam. HEMATOLOGY: Negative for Homans. HEENT: Ophthalmologic, pupils equal, round, reactive. ASSESSMENT: Retractable back pain passive thoracic vertebrae insulin-dependent diabetes mellitus, COPD, coronary artery disease prognosis guarded, follow up in next 24 to 48 hours. Continue current treatments. Get a lumbar CT and consult Dr. Meeks. Prognosis is guarded. Lumbar CAT scan does show some new lucency over the anterior right T11 vertebra superiorly suspicious for soft tissue mass at this level. Lytic metabolic focus is suspected exterior is a posterior aspect of the vertebra. Consider MRI with without and with contrast to further evaluate of if there is spinal canal cord effacement. Wait and get a possibly Oncology to see her also. Prognosis guarded. Possibly do a bone scan. MMODL / IJN: [id number] /
[2023-03-17] MEDS: TOPIRAMATE 25 MG TAB PO SCH (21:15)
[2023-03-17] MEDS: MAGNESIUM OXIDE 400 MG TAB PO SCH (21:15)
[2023-03-17] MEDS: GABAPENTIN 300 MG CAP PO PRN (21:15)
[2023-03-17] MEDS: MONTELUKAST 10 MG TAB PO SCH (21:15)
[2023-03-17] MEDS: ATORVASTATIN 20 MG TAB PO SCH (21:16)
[2023-03-17 21:35] LABS: Glucose,Whole Blood 170 mg/dL (70-110)
[2023-03-17] MEDS: INSULIN DETEMIR (LEVEMIR) 100 UNIT/ML SYR SQ SCH (22:22)
[2023-03-18] MEDS: HYDROmorphone 1 MG/ML 1 ML SYRINGE IVP PRN ×3 (02:11→11:28)
[2023-03-18] MEDS: methylPREDNISolone SOD SUCCI 40 MG/ML 1 ML VIAL IV SCH ×3 (02:11→18:08)
[2023-03-18] MEDS: HYDROcodone/APAP 5-325MG 1 EACH TAB PO PRN ×3 (03:49→13:43)
[2023-03-18 06:11] LABS: Glucose,Whole Blood 321 mg/dL (70-110)
[2023-03-18] MEDS: carvediloL 6.25 MG TAB PO SCH ×2 (06:23→18:08)
--- NOTE | 2023-03-18 07:10 | P.PN ---
Progress Note - Text Progress Note Date: 03/18/23 CT REVIEWED. PT HAS T11 AO TYPE B3 FRACTURE AT T11 THIS IS AN UNSTABLE FRACTURE IN AN ANKYLOSED SPINE. SHE NEEDS STABILIZATION. BED REST PAIN CONTROL WILL BOARD FOR SURGERY 03/19/23. OPEN TREATMENT T11 FRACTURE WITH T9-L2 STABILIZATION.
[2023-03-18] MEDS: GABAPENTIN 300 MG CAP PO PRN (08:13)
[2023-03-18] MEDS: IPRATROPIUM-ALBUTEROL 3 ML NEB INHALATION SCH ×4 (09:07→19:49)
[2023-03-18] MEDS: INSULIN ASPART (NovoLOG) 100 UNIT/ML VIAL SQ SCH ×3 (09:25→18:07)
[2023-03-18] MEDS: allopurinoL 100 MG TAB PO SCH (09:26)
[2023-03-18] MEDS: FERROUS SULFATE 325 MG TAB PO SCH (09:26)
[2023-03-18] MEDS: ETODOLAC 300 MG CAPSULE PO SCH ×3 (09:26→21:09)
[2023-03-18] MEDS: ASPIRIN 81 MG PO SCH (09:26)
[2023-03-18] MEDS: CYANOCOBALAMIN 500 MCG TAB PO SCH (09:26)
[2023-03-18] MEDS: SENNOSIDES 8.6 MG TAB PO SCH (09:26)
[2023-03-18] MEDS: [UNRECOGNIZED DRUG - OTHER] INHALATION SCH (09:26)
--- NOTE | 2023-03-18 09:41 | P.PN ---
Subjective Progress Note Date: 03/18/23 Principal diagnosis: Back injury/pain Patient seen and examined this morning. Patient is resting comfortable in bed. She does report that her pain is managed on current regimen. CT of the lumbar spine results have been reviewed by Dr. Meeks and demonstrates a T11 AO typ e B3 fracture that is unstable. Discussed with patient the need for surgical intervention to stabilize this fracture. Patient is very emotional, which is to be expected. Informed patient that she has been boarded for surgery tomorrow 03/19/2023, she will be nothing by mouth at midnight. Prescription for TLSO brace has been placed in chart for post-procedure. Patient is to remain bed rest at this time. Patient denies any numbness/tingling or radicular symptoms to the bilateral lower extremities. Patient does have complaint of moderate amount of mid back pain that is controlled on current regimen. No acute concerns at this time. Objective - Vital Signs Vital signs: Vital Signs Temp 97.4 F L 03/18/23 02:00 Pulse 72 03/18/23 06:28 Resp 16 03/18/23 02:00 BP 133/71 03/18/23 06:28 Pulse Ox 91 L 03/18/23 02:00 FiO2 Intake & Output 03/17/23 03/18/23 03/18/23 18:59 06:59 18:59 Weight 92.986 kg Other: # Voids 2 - Exam Physical Examination General: The patient is awake and alert, in no acute distress Skin: Skin is warm and dry with no obvious rashes or lesions. Eye: Pupils are equal, round and reactive to light, extra-ocular movements are intact; there is normal conjunctiva bilaterally. Neck: The neck is supple, there is mild tenderness and limited ROM secondary to pain. Cardiovascular: There is a regular rate and rhythm. No murmur, rub or gallop is appreciated. Respiratory: Lungs are clear to auscultation, respirations are non-labored, breath sounds are equal. Gastrointestinal: Soft, non-distended, non-tender abdomen. Back: There is moderate tenderness to palpation in the midline region. There is no obvious deformity . Musculoskeletal: ROM limited secondary to pain and stiffness from recent fall with injury. Muscle strength in all major muscle groups of bilateral upper extremities 5/5, bilateral lower extremities 4/5. Neurological: CN 2-12 intact. There are no obvious motor or sensory deficits. Movement and coordination equal and intact. Sensory exam to light touch intact C5-T1 and intact from L2-S1. Reflexes 2/4 in bilateral upper and lower extre mities. Negative Hoffmans, babinski, and clonus signs. Psychiatric: Cooperative, appropriate mood & affect, normal judgment. - Labs CBC & Chem 7: 03/17/23 06:20 03/17/23 06:20 Labs: Abnormal Lab Results - Last 24 Hours (Table) 03/17/23 03/17/23 03/18/23 Range/Units 17:33 21:33 06:10 POC Glucose (mg/dL) 169 H 170 H 321 H (70-110) mg/dL Assessment and Plan Assessment: T11 AO type B3 fracture Recent fall Back pain Plan: At this time we are recommending surgical intervention of an open treatment of T11 fracture with T9-L2 stabilization scheduled for tomorrow 03/19/2023, risks and benefits have been discussed with patient and she verbalizes understanding and is in agreement with this plan. -Appreciate pre owned sales consultant and team management. -Nothing by mouth at midnight -Activity: Bedrest -Pain control: Adequate at this time -Meds: reviewed -GI ppx: senna -DVT PPX: Mechanical -Encourage IS 10x/hr -Dispo: Clinically pending *I reviewed and discussed this case with my attending Dr. Meeks, whom has reviewed this chart and films and is in agreement with assessment and plan of care as outlined above. I have personally seen and examined the patient, performed the documentation and the assessment and plan as written. Number of minutes spent on the visit: 20m.
--- NOTE | 2023-03-18 11:58 | CT ---
EXAMINATION TYPE: CT thoracic spine wo con CT DLP: 2028.3 mGycm, Automated exposure control for dose reduction was used. DATE OF EXAM: 03/18/2023 11:03 AM COMPARISON: CT 03/17/2023.. CLINICAL INDICATION:Female, 67 years old with history of recent fall, T11 fracture, Recent fall. T11 fracture. TECHNIQUE: Axial images of the thoracic spine were obtained without contrast. Coronal and sagittal re formats were performed. 3-D reformats of the bones were created on a separate workstation and submitt ed for review. FINDINGS: There is acute fracture through the superior endplate of T11 with gapping up to 7 mm. Fract ure line does extend into the posterior elements bilaterally to the pedicles series 6 image 64.. No s ignificant retropulsion. There is mild spinal canal stenosis at this level. There is anterior longitu dinal segment syndesmophytes with bridging calcifications throughout the spine. There is no additiona l evidence of additional fracture. Fixation hardware in the lower lumbar spine and upper thoracic/cer vical spine appears intact. Mild scoliosis changes. The heart is markedly enlarged for size. Pulmonary trunk dilation up to 4.2 cm. Coronary artery calci fications and cardiac conduction leads present. Metallic densities within the left kidney possibly re lated to prior embolization. The gallbladder is surgically absent. IMPRESSION: 1. 3 column brittle back fracture of the T11 vertebrae with gapping. Surgical consultation recommend ed as this is an unstable fracture pattern. 2. Cardiomegaly with evidence of pulmonary hypertension.
[2023-03-18 12:08] LABS: Glucose,Whole Blood 348 mg/dL (70-110)
[2023-03-18 17:25] LABS: Glucose,Whole Blood 369 mg/dL (70-110)
[2023-03-18] MEDS ORDERED: LIDOCAINE 1% (10MG/ML) FOR IV START INTRADERMA PRN (17:36)
[2023-03-18] MEDS: PANTOPRAZOLE 40 MG TABLET PO SCH (18:11)
[2023-03-18 20:51] LABS: Glucose,Whole Blood 361 mg/dL (70-110)
[2023-03-18] MEDS: ATORVASTATIN 20 MG TAB PO SCH (21:08)
[2023-03-18] MEDS: MONTELUKAST 10 MG TAB PO SCH (21:09)
[2023-03-18] MEDS: TOPIRAMATE 25 MG TAB PO SCH (21:09)
[2023-03-18] MEDS: MAGNESIUM OXIDE 400 MG TAB PO SCH (21:09)
[2023-03-18] MEDS: INSULIN DETEMIR (LEVEMIR) 100 UNIT/ML SYR SQ SCH (21:10)
--- NOTE | 2023-03-18 22:29 | PN ---
PROGRESS NOTE SUBJECTIVE: She had CT of the thoracic spine which shows 3-column brittle back fracture of the T11 vertebrae with gapping. Surgical consultation recommended unstable fracture pattern, cardiomegaly, pulmonary hypertension, await as she has a 3-column brittle back fracture at T11, what they are going to do to deal with this and recommendations of Dr. Meeks. She is in severe pain, just rolling over. OBJECTIVE: CARDIOVASCULAR: S1, S2. LUNGS: Decreased breath sounds. BUN 52, creatinine 1.13. She has a T11 AO type B3 fracture, recent fall, back pain, surgical intervention with an open treatment of T11 fracture with T9-T12 stabilization scheduled for tomorrow, 03/19/2023. PROGNOSIS: Extremely guarded. Continue on breathing treatments for pulmonary hypertension and CHF control, diabetes control, prognosis extremely guarded. Please see further orders. MMODL / IJN: [id number] /
[2023-03-19] MEDS: HYDROmorphone 1 MG/ML 1 ML SYRINGE IVP PRN ×4 (02:10→22:34)
[2023-03-19] MEDS: methylPREDNISolone SOD SUCCI 125 MG/2 ML VIAL IV SCH ×3 (02:11→21:50)
[2023-03-19] MEDS: PANTOPRAZOLE 40 MG TABLET PO SCH ×2 (05:55→21:50)
[2023-03-19] MEDS: carvediloL 6.25 MG TAB PO SCH ×2 (05:55→21:50)
[2023-03-19 05:58] LABS: Glucose,Whole Blood 232 mg/dL (70-110)
[2023-03-19] MEDS ORDERED: HYDROmorphone 0.5 MG/0.5 ML SYRINGE IVP PRN (07:00)
[2023-03-19] MEDS: IPRATROPIUM-ALBUTEROL 3 ML NEB INHALATION SCH ×4 (07:32→21:51)
[2023-03-19] MEDS ORDERED: DEXAMETHASONE SOD PHOSPHATE 4 MG/ML 1 ML VIAL IV ONE (08:00)
[2023-03-19] MEDS ORDERED: ONDANSETRON 4 MG/2 ML VIAL IVP ONE ×2 (08:00→17:40)
--- NOTE | 2023-03-19 08:09 | P.PN ---
Progress Note - Text Progress Note Date: 03/19/23 Patient seen this morning. Patient is resting currently in bed. She continues to report a moderate sharp mid to low back pain, that is managed on current regimen. Patient has remained nothing by mouth since midnight for surgery later this afternoon. Questions and concerns have been answered. Awaiting TLSO brace to be delivered. Informed patient that she will speak with Dr. Meeks prior to procedure, patient verbalizes understanding. No acute concerns at this time.
[2023-03-19] MEDS: ASPIRIN 81 MG PO SCH (08:40)
[2023-03-19] MEDS: INSULIN ASPART (NovoLOG) 100 UNIT/ML VIAL SQ SCH ×3 (08:46→21:50)
[2023-03-19] MEDS: HYDROcodone/APAP 5-325MG 1 EACH TAB PO PRN (08:47)
[2023-03-19] MEDS: ETODOLAC 300 MG CAPSULE PO SCH ×3 (08:47→23:56)
[2023-03-19] MEDS: allopurinoL 100 MG TAB PO SCH (08:47)
[2023-03-19] MEDS: FERROUS SULFATE 325 MG TAB PO SCH (08:48)
[2023-03-19] MEDS: SENNOSIDES 8.6 MG TAB PO SCH (08:48)
[2023-03-19] MEDS: CYANOCOBALAMIN 500 MCG TAB PO SCH (08:49)
[2023-03-19 09:56] LABS: HCT 35.9 % (34.0-46.0); HGB 11.2 gm/dL (11.4-16.0); Hypochromasia Marked; MCH 28.6 pg (25.0-35.0); MCHC 31.2 g/dL (31.0-37.0); MCV 91.8 fL (80.0-100.0); Mean Platelet Volume 11.4; Platelet Count 103 k/uL (150-450); RBC 3.92 m/uL (3.80-5.40); RDW 15.3 % (11.5-15.5); WBC 9.1 k/uL (3.8-10.6)
[2023-03-19 10:09] LABS: African American GFR (CKD) 49 (>60 ml/min/1.73 sqM); Anion Gap 4 mmol/L; Blood Urea Nitrogen 63 mg/dL (7-17); Calcium 9.5 mg/dL (8.4-10.2); Carbon Dioxide 28 mmol/L (22-30); Chloride 106 mmol/L (98-107); Glucose 207 mg/dL (74-99); Non-African American GFR(CKD) 43 (>60 ml/min/1.73 sqM); Potassium 5.6 mmol/L (3.5-5.1); Sodium 138 mmol/L (137-145)
[2023-03-19] MEDS ORDERED: SODIUM POLYSTYRENE SULFONATE 15 GM/60 ML BOTTLE PO ONE (12:07)
[2023-03-19 12:25] LABS: Glucose,Whole Blood 124 mg/dL (70-110)
[2023-03-19] MEDS: [UNRECOGNIZED DRUG - OTHER] INHALATION SCH (12:29)
--- NOTE | 2023-03-19 13:48 | CA ---
Transthoracic Echo Report Name: Yani Andino Age: 67 Gender: F : 1955 Exam Date: 03/18/2023 17:41 Exam Location: [facility] Ht (in): 65 Wt (lb): 205 Ordering Physician: Vishal Snell MD Attending/Referring Phys: Loan Specialist Hanh Woodson [facility] Procedure CPT: Indications: CAD Cardiac Hx: Technical Quality: Technically difficult study Contrast 1: Definity Total Dose (mL): 6 Contrast 2: Total Dose (mL): MEASUREMENTS (Male / Female) Normal Values 2D ECHO LV Diastolic Diameter PLAX 6.0 cm 4.2 - 5.9 / 3.9 - 5.3 cm LV Systolic Diameter PLAX 5.5 cm IVS Diastolic Thickness 1.0 cm 0.6 - 1.0 / 0.6 - 0.9 cm LVPW Diastolic Thickness 1.0 cm 0.6 - 1.0 / 0.6 - 0.9 cm LV Relative Wall Thickness 0.3 LVOT Diameter 2.0 cm LV Diastolic Volume MOD BP 125.5 cm??? 67 - 155 / 56 - 104 cm??? LV Systolic Volume MOD BP 80.4 cm??? 22 - 58 / 19 - 49 cm??? LV Ejection Fraction MOD BP 35.9 % >= 55 % LV Cardiac Index MOD BP 1413.8 cm???/min???m??? LV Diastolic Volume MOD 4C 152.1 cm??? LV Systolic Volume MOD 4C 92.4 cm??? LV Ejection Fraction MOD 4C 39.3 % LV Cardiac Index MOD 4C 1874.2 cm???/min???m??? LV Diastolic Length 4C 9.6 cm LV Systolic Length 4C 8.9 cm LV Diastolic Volume MOD 2C 103.7 cm??? LV Systolic Volume MOD 2C 64.4 cm??? LV Ejection Fraction MOD 2C 37.9 % LV Cardiac Index MOD 2C 1231.8 cm???/min???m??? LV Diastolic Length 2C 10.0 cm LV Systolic Length 2C 8.2 cm Ascending Aorta Diameter 3.8 cm M-MODE Aortic Root Diameter MM 3.8 cm LA Systolic Diameter MM 4.8 cm LA Ao Ratio MM 1.3 AV Cusp Separation MM 2.5 cm DOPPLER AV Peak Velocity 121.4 cm/s AV Peak Gradient 5.9 mmHg AV Mean Velocity 83.8 cm/s AV Mean Gradient 3.2 mmHg AV Velocity Time Integral 24.7 cm LVOT Peak Velocity 79.6 cm/s LVOT Peak Gradient 2.5 mmHg LVOT Velocity Time Integral 15.5 cm LVOT Stroke Volume 49.6 cm??? LVOT Stroke Volume Index 24.8 ml/m??? LVOT Cardiac Index 1556.1 cm???/min???m??? AV Area Cont Eq vti 2.0 cm??? AV Area Cont Eq pk 2.1 cm??? Mitral E Point Velocity 48.0 cm/s Mitral A Point Velocity 69.2 cm/s Mitral E to A Ratio 0.7 MV Deceleration Time 392.8 ms LV E' Lateral Velocity 4.1 cm/s Mitral E to LV E' Lateral Ratio 11.7 LV E' Septal Velocity 4.6 cm/s Mitral E to LV E' Septal Ratio 10.4 TR Peak Velocity 245.4 cm/s TR Peak Gradient 24.1 mmHg Right Atrial Pressure 8.0 mmHg Pulmonary Artery Systolic Pressu 32.1 mmHg Right Ventricular Systolic Press 32.1 mmHg FINDINGS Left Ventricle Moderately increased left ventricular diastolic diameter. Moderately increased left ventricular diastolic volume. Severely increased left ventricular systolic volume. Moderately decreased left ventricular ejection fraction. Mildly increased left ventricular wall thickness. Left ventricular ejection fraction is estimated at 30-35%. Right Ventricle Mild right ventricular dilatation. Mild pulmonary hypertension. Right Atrium Mild right atrial dilatation. Left Atrium Severe left atrial dilatation. Mitral Valve Structurally normal mitral valve. Mild mitral regurgitation. Aortic Valve Trileaflet aortic valve. Aortic valve sclerosis. No aortic regurgitation. Tricuspid Valve Tricuspid valve not well visualized. Mild tricuspid regurgitation. Pulmonic Valve Structurally normal pulmonic valve. Trace to mild pulmonic regurgitation. Pericardium Small pericardial effusion. Aorta Mild aortic dilatation at the level of the sinuses of valsalva (root). Ascending aorta at upper limits of normal. CONCLUSIONS Dilated LV with severe LV dysfunction ejection fraction less than 30% RV enlargement Dilated IVC Biatrial enlargement Previewed by: Dr. Keith Whitaker MD (Electronically Signed) Final Date: 19 March 2023 13:47
[2023-03-19] MEDS ORDERED: LACTATED RINGERS 1,000 ML IV ONE ×2 (16:29→21:54)
[2023-03-19] MEDS ORDERED: fentaNYL (PF) 50 MCG/ML 2 ML AMP IVP ONE (16:50)
[2023-03-19] MEDS ORDERED: MIDAZOLAM 2 MG/2 ML VIAL IVP ONE ×2 (16:50→17:10)
[2023-03-19 16:52] LABS: Glucose,Whole Blood 116 mg/dL (70-110)
[2023-03-19] MEDS ORDERED: DEXAMETHASONE SOD PHOSPHATE 4 MG/ML 1 ML VIAL IVP ONE (17:40)
[2023-03-19] MEDS ORDERED: TRANEXAMIC 1,000 MG/100ML-NACL 1,000 MG in SALINE 1 100ML.BAG IVPB PRN (18:24)
[2023-03-19] MEDS ORDERED: LIDOCAINE 1% INJ 10MG/ML (20 ML MDV) ONE (18:26)
[2023-03-19] MEDS ORDERED: fentaNYL (PF) 50 MCG/ML 2 ML AMP ONE (18:26)
[2023-03-19] MEDS ORDERED: SUCCINYLCHOLINE CHLORIDE 200 MG/10 ML VIAL IV ONE (18:26)
[2023-03-19] MEDS ORDERED: PROPOFOL 10 MG/ML 20 ML VIAL IV ONE (18:26)
[2023-03-19] MEDS ORDERED: ALBUMIN HUMAN 5% (25gm) 500 ML VIAL IVPB ONE (18:26)
[2023-03-19] MEDS ORDERED: TRANEXAMIC 1,000 MG/100ML-NACL PREMIX BAG ONE (18:26)
[2023-03-19] MEDS ORDERED: MIDAZOLAM 2 MG/2 ML VIAL ONE (18:26)
[2023-03-19] MEDS ORDERED: KETAMINE HCL IN 0.9 % NACL 50 MG/5 ML SYRINGE ONE (18:26)
[2023-03-19] MEDS ORDERED: PHENYLEPHRINE 10 MG/ML VIAL ONE (18:26)
--- NOTE | 2023-03-19 18:28 | P.PN ---
Progress Note - Text Progress Note Date: 03/19/23 PT S/E IN PRE OP WITH HER DAUGHTER. SHE IS IN EXTREME PAIN IN HER MID TO LOWER BACK. DAUGHTER STATES EVER SINCE SHE LEFT THE ED THE FIRST TIME AFTER THE FALL SHE HAS BEEN IN BED AND NOT ABLE TO GET UP DUE TO THE PAIN IN HER BACK. SHE STATES NO NUMBNESS/TINGLING. STATES 10/10 PAIN WHEN MOVING. STATES SHE FEELS LIKE HER BACK IS MOVING AND IT SHOULDN'T BE. SHE DENIES ANY BOWEL OR BLADDER ISSUES CURRENTLY. WE DISCUSSED SURGERY IN THE FORM OF STABILIZATION OF HER T11 FRACTURE WHICH IS UNSTABLE IN AN ANKYLOSED SPINE. SHE AGREES. WE DISCUSSED RISKS AND BENEFITS UP TO AND INCLUDING BUT NOT LIMITED TO RISK OF BLEEDING, INFECTION, DAMAGE TO TISSUE, DAMAGE TO NERVES, NEED FOR REOPERATION NEED FOR BLOOD TRANSFUSION AND RISKS ASSOCIATED WITH THAT, RISK OF DURAL LEAK, RISK OF ANESTHESIA UP TO AND INCLUDING . SHE WAS WILLING TO ASSUME ALL THE RISKS OF SURGERY AND WAS WILLING TO PROCEED. ALL QUESTIONS ANSWERED.
[2023-03-19] MEDS ORDERED: THROMBIN (BOVINE) 5,000 UNIT VIAL TOPICAL ONE (19:47)
[2023-03-19] MEDS ORDERED: GELATIN SPONGE,ABSORB (SMALL) 1 EACH SPONGE TOPICAL ONE (19:48)
[2023-03-19] MEDS ORDERED: SODIUM CHLORIDE 0.9% 1,000 ML IV ONE (20:13)
[2023-03-19] MEDS ORDERED: MAGNESIUM HYDROXIDE 2,400 MG/30 ML CUP PO PRN (20:16)
[2023-03-19] MEDS ORDERED: SENNOSIDES-DOCUSATE SODIUM 1 EACH TAB PO PRN (20:16)
[2023-03-19] MEDS ORDERED: VANCOMYCIN 1,000 MG VIAL MISCELLANE ONE (20:36)
[2023-03-19] MEDS ORDERED: TOBRAMYCIN SULFATE 1.2 GM VIAL MISCELLANE ONE (20:37)
[2023-03-19 21:10] LABS: ABG HCO3 24 mmol/L (21-25); ABG PCO2 40 mmHg (35-45); ABG PH 7.39 (7.35-7.45); ABG PO2 226 mmHg (83-108); ABG TCO2 25 mmol/L (19-24); Allen Test Performed? Yes
[2023-03-19 21:20] LABS: Glucose,Whole Blood 182 mg/dL (70-110)
[2023-03-19] MEDS ORDERED: ceFAZolin 3,000 MG in SODIUM CHLORIDE 0.9% IRRIGATIO 3,000 ML IRRIGATION ONE (21:48)
[2023-03-19] MEDS: LACTATED RINGERS 1,000 ML IV SCH (21:48)
[2023-03-19] MEDS ORDERED: GENTAMICIN 80 MG in SODIUM CHLORIDE 0.9% IRRIGATIO 3,000 ML IRRIGATION ONE (21:49)
[2023-03-19] MEDS: ATORVASTATIN 20 MG TAB PO SCH (21:51)
[2023-03-19] MEDS: INSULIN DETEMIR (LEVEMIR) 100 UNIT/ML SYR SQ SCH (21:51)
[2023-03-19 22:15] LABS: Glucose,Whole Blood 195 mg/dL (70-110)
[2023-03-19] MEDS: MAGNESIUM OXIDE 400 MG TAB PO SCH (22:28)
[2023-03-19] MEDS: MONTELUKAST 10 MG TAB PO SCH (22:28)
[2023-03-19] MEDS: TOPIRAMATE 25 MG TAB PO SCH (22:28)
[2023-03-19 22:50] LABS: Basophils % (A) 0 %; Eosinophils % (A) 0 %; HCT 29.3 % (34.0-46.0); Hypochromasia Moderate; Lymphocytes # (A) 0.3 k/uL (1.0-4.8); Lymphocytes % (A) 6 %; MCH 28.9 pg (25.0-35.0); MCHC 32.1 g/dL (31.0-37.0); MCV 89.9 fL (80.0-100.0); Mean Platelet Volume 9.6; Monocytes # (A) 0.1 k/uL (0-1.0); Monocytes % (A) 2 %; Neutrophils # (A) 5.5 k/uL (1.3-7.7); Neutrophils % (A) 92 %; RBC 3.26 m/uL (3.80-5.40); RDW 15.3 % (11.5-15.5)
[2023-03-19 22:52] LABS: HGB 9.4 gm/dL (11.4-16.0)
[2023-03-19 22:57] LABS: African American GFR (CKD) 65 (>60 ml/min/1.73 sqM); Anion Gap 6 mmol/L; Blood Urea Nitrogen 56 mg/dL (7-17); Calcium 8.4 mg/dL (8.4-10.2); Carbon Dioxide 21 mmol/L (22-30); Chloride 109 mmol/L (98-107); Glucose 189 mg/dL (74-99); Magnesium 2.5 mg/dL (1.6-2.3); Non-African American GFR(CKD) 56 (>60 ml/min/1.73 sqM); Platelet Count 93 k/uL (150-450); Potassium 4.6 mmol/L (3.5-5.1); Sodium 136 mmol/L (137-145)
[2023-03-19 22:58] LABS: Large Platelets Present; Polychromasia Present
--- NOTE | 2023-03-19 23:18 | XR ---
EXAM: XR Chest, 1 View CLINICAL HISTORY: ITS.REASON XR Reason: Tube placement TECHNIQUE: Frontal view of the chest. COMPARISON: No relevant prior studies available. FINDINGS: Lungs: See below. Pleural space: See below. Heart: Cardiomegaly. Cardiomegaly. Mild pulmonary vascular congestion. Trace bilateral pleural effusions, correlate for CHF. Mediastinum: Unremarkable. Normal mediastinal contour. Bones/joints: Upper thoracic and thoracolumbar fusion hardware. No acute fracture. Soft tissues: Midline cutaneous skin mana. Tubes, lines and devices: AICD/pacemaker. Feeding tube terminates in the stomach. Upper abdomen: Cholecystectomy clips. IMPRESSION: Cardiomegaly. Mild pulmonary vascular congestion. Trace bilateral pleural effusions, correlate for CHF.
--- NOTE | 2023-03-19 23:31 | FL ---
EXAMINATION TYPE: FL guidance operating room, XR lumbar spine 2 or 3V Intraoperative/procedural fluor oscopic services were provided. Total fluoroscopy time is 31 seconds with a total of 10 submitted rin ges to PACS. Please see the operative/procedural note for further details. DAP: 2350.29 cGycm2
[2023-03-20] MEDS ORDERED: NOREPINEPHRINE 4 MG in SODIUM CHLORIDE 0.9% 250 ML IV SCH (01:00)
[2023-03-20] MEDS: methylPREDNISolone SOD SUCCI 125 MG/2 ML VIAL IV SCH ×3 (01:37→19:16)
[2023-03-20] MEDS: HYDROmorphone 1 MG/ML 1 ML SYRINGE IVP PRN ×2 (02:45→09:10)
[2023-03-20 03:39] LABS: Glucose,Whole Blood 213 mg/dL (70-110)
[2023-03-20 03:49] LABS: Basophils % (A) 0 %; Eosinophils % (A) 0 %; HCT 29.9 % (34.0-46.0); HGB 9.6 gm/dL (11.4-16.0); Hypochromasia Slight; Lymphocytes # (A) 0.5 k/uL (1.0-4.8); Lymphocytes % (A) 7 %; MCHC 32.2 g/dL (31.0-37.0); Mean Platelet Volume 9.3; Monocytes # (A) 0.3 k/uL (0-1.0); Monocytes % (A) 4 %; Neutrophils # (A) 6.9 k/uL (1.3-7.7); Neutrophils % (A) 89 %; Platelet Count 104 k/uL (150-450); RBC 3.32 m/uL (3.80-5.40); RDW 15.6 % (11.5-15.5); WBC 7.8 k/uL (3.8-10.6)
[2023-03-20 03:58] LABS: ALT 17 U/L (4-34); AST 24 U/L (14-36); African American GFR (CKD) 58 (>60 ml/min/1.73 sqM); Albumin 3.1 g/dL (3.5-5.0); Alkaline Phosphatase 120 U/L (38-126); Anion Gap 6 mmol/L; Blood Urea Nitrogen 59 mg/dL (7-17); Calcium 8.7 mg/dL (8.4-10.2); Carbon Dioxide 22 mmol/L (22-30); Chloride 108 mmol/L (98-107); Glucose 201 mg/dL (74-99); Magnesium 2.3 mg/dL (1.6-2.3); Non-African American GFR(CKD) 51 (>60 ml/min/1.73 sqM); Potassium 4.5 mmol/L (3.5-5.1); Sodium 136 mmol/L (137-145); Total Bilirubin 0.7 mg/dL (0.2-1.3); Total Protein 5.2 g/dL (6.3-8.2)
--- NOTE | 2023-03-20 05:52 | PN ---
PROGRESS NOTE SUBJECTIVE: Seen in ICU, status post thoracic fracture surgery. X-ray shows she is postop thoracic fracture. OBJECTIVE: VITAL SIGNS: Respiratory rate 18-20, blood pressure 110/51, O2 100% on 50% oxygen. CARDIOVASCULAR: S1, S2. LUNGS: Transmitted upper sounds PSYCH: Fair mood and affect. NEUROLOGIC: Alert and oriented x3. ASSESSMENT: 1. Status post thoracic lumbar surgery. 2. Insulin-dependent diabetes mellitus. 3. COPD. 4. Hypothyroidism. 5. Morbid obesity. 6. Neuropathy. PROGNOSIS: Extremely guarded. Accu-Chek protocol. Fluid rehydration. Wean off oxygen as tolerated. . MMODL / IJN: [id number] /
[2023-03-20 06:23] LABS: Allen Test Performed? Yes
--- NOTE | 2023-03-20 06:23 | P.CNPUL ---
History of Present Illness Consult date: 03/20/23 Requesting physician: Jomar Meeks Reason for consult: other (ICU management) Chief complaint: Fall sustaining T11 fracture; status POD #1 following T9 to L2 stabilizatio History of present illness: I am seeing this patient in consultation today 03/20/2023 in the intensive care unit, as the patient is status postoperative day #1 following a T9 to L2 stabilization. The patient did reportedly have a fall last week and was subsequently found to have unstable T11 fracture. Patient is a 67-year-old white female past medical history significant for asthma, obstructive sleep apnea, diabetes mellitus, hyperlipidemia, hypertension, congestive heart failure, AICD, chronic kidney disease stage III, multiple spinal surgeries, among other things. Patient did have a recent C2 to T2 decompression and posterior lateral fusion in November,. This was complicated by wound dehiscence and infection. She did spend some time additional time in the hospital in December,. She had a repeat procedure, including an incision and drainage with excisional debridement of the posterior neck on 01/08/2023. Patient was evaluated in the emergency room back on 03/09/2023 for neck pain. Apparently, she may have fell in the parking lot and hit her head. A CT of the head and C-spine did not show any acute intracranial abnormality or evidence of C-spine fracture or traumatic malalignment. Lumbar spine x-ray did not show any evidence of acute radiographic abnormality of the lumbar spine. There were multilevel chronic and degenerative changes. Patient returned to the emergency room 3 days ago, on 03/17/2023, complaining of extreme lower back pain. Patient had an extensive evaluation. Thoracic level CT showed 3 columns brittle back fracture of the T11 vertebra with gapping felt to be unstable. Yesterday evening the patient went for a T9 to L2 stabilization. No intraoperative complications reported. She did have some postoperative hypotension, which was treated with 1 L of crystalloid and 500 albumin. Patient was briefly on John-Synephrine intraoperatively. Dr. Meeks did contact me about the patient. Patient is currently in the intensive care unit. She is intubated on mechanical ventilator. Postoperative chest x-ray shows endotracheal tube at the level of the clavicle, and oral gastric tube with the tip within the stomach. There is cardiomegaly mild pulmonary vascular congestion. There is an AICD. Current ventilator settings assist control, respiratory rate 18, tidal volume 400, FiO2 100%, and PEEP of 5. She is sedated on propofol which is currently infusing at 30 mcg/kg/m, and synchronous and mechanical ventilator. She does wake up and follow commands. She is able to move all 4 extremities and has good strength. Postoperative ABGs show a pO2 of 226, pCO2 of 40, and pH of 7.39 and this was on the above-mentioned settings. FiO2 was dropped to 50%. Patient is currently lying flat in bed, she does node her head yes when asked if she is improving. She is getting when necessary pain medications now. Blood pressure is borderline hypotensive. Patient may require low-dose vasopressors if hypotension persists. Patient does have a Reddy catheter, and there was a total of 750 ML's emptied from the bag. She also has a Hemovac with a minimal amount of sanguinous output. Postoperative CBC has a WBC count of 6, hemoglobin down to 9.4 from 11.2 previously, hematocrit 29.3, platelets 93,000. Postoperative BMP has a sodium 136, potassium 4.6, chloride 109, serum bicarbonate 21, BUN 36, creatinine 1.03, glucose 189. Lactated Ringer's infusing at 20 ML's per hour. SCDs are on. Patient is being monitored in the intensive care unit. Review of Systems ROS unobtainable: due to endotracheal tube Past Medical History Past Medical History: Asthma, Diabetes Mellitus, GERD/Reflux, Hyperlipidemia, Musculoskeletal Disorder, Osteoarthritis (OA), Pneumonia, Renal Disease, Sleep Apnea/CPAP/BIPAP, Vascular Disorder Additional Past Medical History / Comment(s): neuropathy bilateral hands/legs/feet, CKD stage III, hx kidney stones, anemia, UTI/septic due to lodged kidney stone, CARLOS with bipap, bronchitis, orthostatic hypotension with near syncope, vertigo, chronic low back pain/DDD, scoliosis, bilateral carpal tunnel syndrome, bilateral varicosities, migraines, SEE DR ROCÍO Friedman&P, gout, hx anemia(from nicked vein in left kidney after surgery for kidney stone), "embolism in my chest" History of Any Multi-Drug Resistant Organisms: None Reported Past Surgical History: AICD, Appendectomy, Back Surgery, Cardiac Ablation, Section, Cholecystectomy, Heart Catheterization, Hysterectomy, Joint Replacement, Orthopedic Surgery, Pacemaker Additional Past Surgical History / Comment(s): Rt knee arthroscopy, john total knee arthroplasty, pain clinic procedures, D&C, colonoscopy, bilateral leg varicose vein surgery, lithotripsies, surgical removal of stones, Myel ogram([place]) 2018, Lumbar fusion L3-4, lumbar puncture for headaches 2019 (had spinal headache post), laminectomy, bakers cyst removed from rt knee, john cataracts, 02/12/21 back surgery with complications, cervical fusion Dec 08 Past Anesthesia/Blood Transfusion Reactions: No Reported Reaction Additional Past Anesthesia/Blood Transfusion Reaction / Comment(s): Pt has received blood without reaction. Type of Cardiac Device: Permanent Pacemaker, AICD Device Placement Date:: 09/10/20 Past Psychological History: Anxiety, Depression Smoking Status: Never smoker Past Alcohol Use History: None Reported Past Drug Use History: None Reported - Past Family History Father Family Medical History: Cancer Additional Family Medical History / Comment(s): Stomach cancer. Brother(s) Family Medical History: Cancer Additional Family Medical History / Comment(s): Lung cancer. Sister(s) Family Medical History: Cancer Additional Family Medical History / Comment(s): Sister had stomach/colon/part of pancreas cancers. Mother Family Medical History: Cancer Additional Family Medical History / Comment(s): Ovarian and cervical cancer. Medications and Allergies Home Medications Medication Instructions Recorded Confirmed Type Montelukast [Singulair] 10 mg PO HS 11/02/18 03/17/23 History Atorvastatin [Lipitor] 20 mg PO HS 09/05/19 03/17/23 History Topiramate [Topamax] 50 mg PO HS 09/05/19 03/17/23 History Insulin Lispro [humaLOG Kwikpen] 10 unit SQ TID-W/MEALS 02/09/20 03/17/23 History Magnesium Oxide [Shaikh] 500 mg PO HS 02/09/20 03/17/23 History Cyanocobalamin (Vitamin B-12) 1,000 mcg PO DAILY 06/09/22 03/17/23 History [Vitamin B-12] Midodrine HCl [ProAmatine] 10 mg PO TID PRN 06/09/22 03/17/23 History allopurinoL 100 mg PO DAILY 06/09/22 03/17/23 History Albuterol Sulfate [Albuterol 2 puff PO RT-Q4H PRN 01/07/23 03/17/23 History Sulfate Hfa] Dupilumab [Dupixent Syringe] 300 mg SQ Q14D 01/07/23 03/17/23 History Insulin Glargine,Hum.rec.anlog 30 units SQ HS 01/07/23 03/17/23 History [Lantus Solostar Pen] Yuperli 175mcg/3ml 175 mcg INHALATION RT-DAILY 01/07/23 03/17/23 History lisinopriL [Zestril] 2.5 mg PO DAILY 01/07/23 03/17/23 History Aspirin EC [Ecotrin Low Dose] 81 mg PO DAILY 03/17/23 03/17/23 History Ferrous Sulfate [Feosol] 325 mg PO DAILY 03/17/23 03/17/23 History Gabapentin 300 mg PO QID PRN 03/17/23 03/17/23 History Ketorolac [Toradol] 10 mg PO TID 03/17/23 03/17/23 History calcitrioL [Calcitriol] 0.25 mcg PO SUTH 03/17/23 03/17/23 History carvediloL 6.25 mg PO BID-W/MEALS 03/17/23 03/17/23 History Allergies Allergy/AdvReac Type Severity Reaction Status Date / Time No Known Allergies Allergy Verified 03/16/23 23:47 Physical Exam Vitals: Vital Signs Temp Pulse Pulse Resp BP BP Pulse Ox 03/20/23 00:10 60 0 L 99/63 100 03/20/23 00:00 60 19 99/63 98 03/19/23 23:50 60 18 99/63 100 03/19/23 23:40 60 18 100 03/19/23 23:30 70 18 98 03/19/23 23:20 60 18 100 03/19/23 23:10 60 18 100 03/19/23 23:00 63 18 99 03/19/23 22:50 60 0 L 100 03/19/23 22:43 03/19/23 22:40 60 13 100 03/19/23 22:30 60 19 100 03/19/23 22:27 03/19/23 22:20 62 11 L 100 03/19/23 22:14 60 10 L 03/19/23 18:04 64 16 126/65 100 03/19/23 16:29 98.3 F 65 16 129/66 97 03/19/23 15:42 72 03/19/23 15:30 70 03/19/23 15:00 97.3 F L 64 16 109/72 96 03/19/23 12:16 68 03/19/23 12:06 64 03/19/23 07:45 72 03/19/23 07:32 74 03/19/23 07:00 97.5 F L 60 16 122/71 97 03/19/23 02:00 61 16 118/69 97 FiO2 03/20/23 00:10 03/20/23 00:00 03/19/23 23:50 03/19/23 23:40 03/19/23 23:30 03/19/23 23:20 03/19/23 23:10 03/19/23 23:00 03/19/23 22:50 03/19/23 22:43 50 03/19/23 22:40 03/19/23 22:30 03/19/23 22:27 100 03/19/23 22:20 03/19/23 22:14 03/19/23 18:04 03/19/23 16:29 03/19/23 15:42 03/19/23 15:30 03/19/23 15:00 03/19/23 12:16 03/19/23 12:06 03/19/23 07:45 03/19/23 07:32 03/19/23 07:00 03/19/23 02:00 Intake and Output 03/19/23 03/19/23 03/20/23 14:59 22:59 06:59 Intake Total 2555.069 14.506 Output Total 1100 80 Balance 1455.069 -65.494 Intake: IV 2552 Intake, IV Titration 3.069 14.506 Amount propofoL 1,000 mg In 3.069 14.506 Empty Bag 1 bag @ 15 MCG/ KG/MIN 8.369 mls/hr IV . [id number] BIN Rx#:[id number] Output: Urine 750 80 Estimated Blood Loss 350 Other: # Voids 1 ABP, PAP, CO, CI - Last 8 Hours Arterial Blood Pressure 111/48 Arterial Blood Pressure 114/54 Arterial Blood Pressure 119/55 Arterial Blood Pressure 121/58 Arterial Blood Pressure 118/57 Arterial Blood Pressure 115/54 Arterial Blood Pressure 115/54 Arterial Blood Pressure 110/51 Arterial Blood Pressure 106/53 Arterial Blood Pressure 115/57 GENERAL EXAM: Sedated, calm and follows all commands, synchronous with mechanical ventilator. HEAD: Normocephalic and atraumatic EYES: Normal reaction of pupils, equal size. NOSE: Clear with pink turbinates. THROAT: No erythema or exudates. NECK: No masses, no JVD. CHEST: No chest wall deformity. LUNGS: Equal air entry with no crackles, wheeze, rhonchi or dullness. intubated to the mechanical ventilator CVS: S1 and S2 normal with no audible murmur, regular rhythm. No extra heart sounds ABDOMEN: No hepatosplenomegaly, active bowel sounds, no guarding or rigidity. SPINE: No scoliosis or deformity. Postoperative incisional dressing is clean, dry, intact. Incision is approximated. There is a postoperative Hemovac. SKIN: No rashes CENTRAL NERVOUS SYSTEM: No focal deficits, tone is normal in all 4 extremities. EXTREMITIES: There is no peripheral edema, clubbing, or cyanosis. Peripheral pulses are intact. Results - Laboratory Findings CBC and BMP: 03/20/23 03:35 03/20/23 03:35 ABG ABG pH 7.39 (7.35-7.45) 03/19/23 22:35 ABG pCO2 40 mmHg (35-45) 03/19/23 22:35 ABG pO2 226 mmHg (83-108) H 03/19/23 22:35 Abnormal lab findings: Abnormal Labs 03/17/23 03/17/23 03/17/23 06:20 06:20 08:22 RBC Hgb Hct Plt Count 102 L Lymphocytes # ABG pO2 ABG Total CO2 Sodium Potassium 5.3 H Chloride Carbon Dioxide BUN 52 H Creatinine 1.13 H Glucose 163 H POC Glucose (mg/dL) 132 H Magnesium AST 45 H Alkaline Phosphatase 147 H 03/17/23 03/17/23 03/18/23 17:33 21:33 06:10 RBC Hgb Hct Plt Count Lymphocytes # ABG pO2 ABG Total CO2 Sodium Potassium Chloride Carbon Dioxide BUN Creatinine Glucose POC Glucose (mg/dL) 169 H 170 H 321 H Magnesium AST Alkaline Phosphatase 03/18/23 03/18/23 03/18/23 12:06 17:24 20:49 RBC Hgb Hct Plt Count Lymphocytes # ABG pO2 ABG Total CO2 Sodium Potassium Chloride Carbon Dioxide BUN Creatinine Glucose POC Glucose (mg/dL) 348 H 369 H 361 H Magnesium AST Alkaline Phosphatase 03/19/23 03/19/23 03/19/23 05:56 09:44 09:44 RBC Hgb 11.2 L Hct Plt Count 103 L Lymphocytes # ABG pO2 ABG Total CO2 Sodium Potassium 5.6 H Chloride Carbon Dioxide BUN 63 H Creatinine 1.29 H Glucose 207 H POC Glucose (mg/dL) 232 H Magnesium AST Alkaline Phosphatase 03/19/23 03/19/23 03/19/23 12:21 16:51 21:18 RBC Hgb Hct Plt Count Lymphocytes # ABG pO2 ABG Total CO2 Sodium Potassium Chloride Carbon Dioxide BUN Creatinine Glucose POC Glucose (mg/dL) 124 H 116 H 182 H Magnesium AST Alkaline Phosphatase 03/19/23 03/19/23 03/19/23 22:13 22:20 22:20 RBC 3.26 L Hgb 9.4 L D Hct 29.3 L Plt Count 93 L Lymphocytes # 0.3 L ABG pO2 ABG Total CO2 Sodium 136 L Potassium Chloride 109 H Carbon Dioxide 21 L BUN 56 H Creatinine Glucose 189 H POC Glucose (mg/dL) 195 H Magnesium 2.5 H AST Alkaline Phosphatase 03/19/23 22:35 RBC Hgb Hct Plt Count Lymphocytes # ABG pO2 226 H ABG Total CO2 25 H Sodium Potassium Chloride Carbon Dioxide BUN Creatinine Glucose POC Glucose (mg/dL) Magnesium AST Alkaline Phosphatase - Diagnostic Findings Chest x-ray: image reviewed Assessment and Plan Assessment: Fall, recently sustaining a traumatic T11 fracture, and is status postoperative day #1 following a T9 to L2 stabilization. Postoperative mechanical ventilator management, postoperative chest x-ray showed endotracheal tube at the level of the clavicle. There is cardiomegaly, mild pulmonary vessel congestion, and possible trace bilateral pleural effusions. Chronic systolic congestive heart failure, recent echocardiogram on 03/18/2023 shows a severely reduced ejection fraction of 30%. History of non-ischemic cardiomyopathy, status post bi-ventricular pacemaker/AICD placement Diabetes mellitus, insulin-dependent History of hypertension History of hyperlipidemia Chronic kidney disease stage III Acute blood loss anemia, expected outcome of surgery, exacerbating patient's known anemia of chronic disease Chronic thrombocytopenia, stable History of asthma, stable History of obstructive sleep apnea Obesity, with a BMI of 34.1 kg/m History of COVID-19 pneumonia requiring hospitalization May, History of C2 to T2 decompression and posterior-lateral fusion in 12/08/22, complicated by wound dehiscence and infection, with repeat incision and drainage and excisional debridement on 01/08/2023 History of L2 to pelvis decompression and fusion Plan: Patient's medications, labs, chest x-ray reviewed Continue mechanical ventilator overnight with current settings. Postoperative ABG was reviewed. May wean FiO2 as tolerated. Daily interruption of sedation in the morning to assess readiness for weaning. Anticipate possible extubation in the morning. Ventilator bundle added. Propofol for sedation. Blood pressure is soft at the moment, she is received 1 L of crystalloid and 500 albumin intraoperatively. She did briefly require John-Synephrine intraoperatively. May require low-dose vasopressors in the form of norepinephrine. Pain is being managed with when necessary Dilaudid, Flexeril, and Tyro's. Protonix for GI prophylaxis. Pharmacological DVT prophylaxis per surgery, SCDs are on. Patient will be going down for a follow-up CT of the lumbar spine later this morning. Continue to follow, and further conditions are forthcoming. I have personally seen and examined the patient, performed the documentation and the assessment and plan as written. Number of minutes spent on the visit:20 Time with Patient: Greater than 30
[2023-03-20 06:28] LABS: ABG Base Excess -0.4 mmol/L; ABG HCO3 24 mmol/L (21-25); ABG PCO2 40 mmHg (35-45); ABG PO2 125 mmHg (83-108); ABG TCO2 26 mmol/L (19-24)
--- NOTE | 2023-03-20 06:29 | CT ---
EXAMINATION TYPE: CT thor lumbar spine wo con DATE OF EXAM: 03/20/2023 COMPARISON: CT lumbar spine 3 days earlier HISTORY: s/p T9-L2 stabilization ORIF T11 CT DLP: 3074.8 mGycm Automated exposure control for dose reduction was used. FINDINGS: There is redemonstration of posterior interpedicular rods and screws transfixing bilateral L2-S1 leve ls with artificial disc material at these levels. There is new surgical hardware with posterior inter pedicular rods and screws transfixing T9 through the L1 levels with a connection to the old surgical hardware. Vertebroplasty is identified at T9 level at site of mild height loss. There are anterior br idging osteophytes with lack of osteophyte or probable fracture anterior T10-T11 level redemonstrated . There is persistent grade 1 retrolisthesis of L1 on L2. Streak artifact from metallic hardware make s evaluation suboptimal. There is evidence of recent surgery with ill-defined fluid and some subcutan eous gas posteriorly along with vertically oriented skin mana. There is partial visualization of cardiomegaly and pacemaker wires. There is nasogastric tube extendi ng into stomach with air-fluid level. There is partial visualization of Reddy catheter balloon in the pelvis. IMPRESSION: New surgical changes in the thoracolumbar spine as detailed above. Hardware position ken sly satisfactory.
[2023-03-20] MEDS: INSULIN ASPART (NovoLOG) 100 UNIT/ML VIAL SQ SCH ×4 (07:08→21:25)
[2023-03-20] MEDS: PANTOPRAZOLE 40 MG TABLET PO SCH ×2 (07:18→19:16)
[2023-03-20] MEDS: carvediloL 6.25 MG TAB PO SCH ×2 (07:30→19:02)
[2023-03-20] MEDS: IPRATROPIUM-ALBUTEROL 3 ML NEB INHALATION SCH ×4 (08:03→19:40)
[2023-03-20] MEDS: LACTATED RINGERS 1,000 ML IV SCH (08:47)
[2023-03-20] MEDS ORDERED: CHLORHEXIDINE GLUCONATE 15 ML CUP MUCOUS MEM SCH (09:00)
[2023-03-20] MEDS: FERROUS SULFATE 325 MG TAB PO SCH (09:09)
[2023-03-20] MEDS: ETODOLAC 300 MG CAPSULE PO SCH ×3 (09:10→21:25)
[2023-03-20] MEDS: CYANOCOBALAMIN 500 MCG TAB PO SCH (09:10)
[2023-03-20] MEDS: ASPIRIN 81 MG PO SCH (09:10)
[2023-03-20] MEDS: allopurinoL 100 MG TAB PO SCH (09:10)
[2023-03-20] MEDS: SENNOSIDES 8.6 MG TAB PO SCH (09:10)
[2023-03-20] MEDS: [UNRECOGNIZED DRUG - OTHER] INHALATION SCH (10:34)
[2023-03-20] MEDS: HYDROmorphone 0.5 MG/0.5 ML SYRINGE IVP PRN (12:05)
[2023-03-20] MEDS: GABAPENTIN 300 MG CAP PO PRN (12:06)
[2023-03-20] MEDS: HYDROcodone/APAP 10-325MG 1 EACH TAB PO PRN ×2 (12:06→22:18)
[2023-03-20 12:20] LABS: Glucose,Whole Blood 160 mg/dL (70-110)
--- NOTE | 2023-03-20 12:24 | P.CNPUL ---
History of Present Illness Consult date: 03/20/23 Chief complaint: ventilator management History of present illness: 67-year-old male patient, being seen in the intensive care unit. This morning, the patient intubated on a mechanical ventilator. The patient was kept intubated postop and the patient had a lengthy spine surgery which included a T9 to L2 stabilization. The patient is currently postop day #1. The patient apparently had a fall and fracture of the T11 spine. This morning, the patient on the mechanical ventilator, assist control mode at the rate of 16, tidal volume of 400, FiO2 of 30% with a PEEP of 5. Chest x-ray shows adequate positioning of the orotracheal tube and the patient has cardiomegaly and mild pulmonary vascular congestion and moderate CHF. She is on propofol which was weaned off and she is regaining her level of alertness. She is in the process of getting a spontaneous breathing trial and following that the patient will likely get extubated. She is hemodynamically stable. Cardiac rhythm is sinus. No other significant events overnight. The patient also has labs that showed evidence of 7.8, hemoglobin 9.6 and a platelet count of 104. Sodium is at 136, potassium levels at 4.5, BUN is at 59 with a creatinine of 1.1. LFTs are normal. She is known to have obstructive sleep apnea, hypertension, hyperlipidemia and diabetes mellitus. She also has CHF with impaired LV function and she has an AICD in place patient's of some chronic bronchial asthma and chronic kidney disease. She has had previous spine surgeries as stated in the records. In the emergency department, the patient also had a computed tomography scan of the cervical spine that showed no evidence of any fracture of the spine. There is multilevel degenerative changes noted. Review of Systems ROS unobtainable: due to endotracheal tube Past Medical History Past Medical History: Asthma, Diabetes Mellitus, GERD/Reflux, Hyperlipidemia, Musculoskeletal Disorder, Osteoarthritis (OA), Pneumonia, Renal Disease, Sleep Apnea/CPAP/BIPAP, Vascular Disorder Additional Past Medical History / Comment(s): neuropathy bilateral hands/legs/feet, CKD stage III, hx kidney stones, anemia, UTI/septic due to lodged kidney stone, CARLOS with bipap, bronchitis, orthostatic hypotension with near syncope, vertigo, chronic low back pain/DDD, scoliosis, bilateral carpal tunnel syndrome, bilateral varicosities, migraines, SEE DR KRISHEN H&P, gout, hx anemia(from nicked vein in left kidney after surgery for kidney stone), "embolism in my chest" History of Any Multi-Drug Resistant Organisms: None Reported Past Surgical History: AICD, Appendectomy, Back Surgery, Cardiac Ablation, Section, Cholecystectomy, Heart Catheterization, Hysterectomy, Joint Replacement, Orthopedic Surgery, Pacemaker Additional Past Surgical History / Comment(s): Rt knee arthroscopy, john total knee arthroplasty, pain clinic procedures, D&C, colonoscopy, bilateral leg varicose vein surgery, lithotripsies, surgical removal of stones, Myelogram([place]) 2018, Lumbar fusion L3-4, lumbar puncture for headaches 2019 (had spinal headache post), laminectomy, bakers cyst removed from rt knee, john cataracts, 02/12/21 back surgery with complications, cervical fusion Dec 08 Past Anesthesia/Blood Transfusion Reactions: No Reported Reaction Additional Past Anesthesia/Blood Transfusion Reaction / Comment(s): Pt has received blood without reaction. Type of Cardiac Device: Permanent Pacemaker, AICD Device Placement Date:: 09/10/20 Past Psychological History: Anxiety, Depression Smoking Status: Never smoker Past Alcohol Use History: None Reported Past Drug Use History: None Reported - Past Family History Father Family Medical History: Cancer Additional Family Medical History / Comment(s): Stomach cancer. Brother(s) Family Medical History: Cancer Additional Family Medical History / Comment(s): Lung cancer. Sister(s) Family Medical History: Cancer Additional Family Medical History / Comment(s): Sister had stomach/colon/part of pancreas cancers. Mother Family Medical History: Cancer Additional Family Medical History / Comment(s): Ovarian and cervical cancer. Medications and Allergies Home Medications Medication Instructions Recorded Confirmed Type Montelukast [Singulair] 10 mg PO HS 11/02/18 03/17/23 History Atorvastatin [Lipitor] 20 mg PO HS 09/05/19 03/17/23 History Topiramate [Topamax] 50 mg PO HS 09/05/19 03/17/23 History Insulin Lispro [humaLOG Kwikpen] 10 unit SQ TID-W/MEALS 02/09/20 03/17/23 History Magnesium Oxide [Shaikh] 500 mg PO HS 02/09/20 03/17/23 History Cyanocobalamin (Vitamin B-12) 1,000 mcg PO DAILY 06/09/22 03/17/23 History [Vitamin B-12] Midodrine HCl [ProAmatine] 10 mg PO TID PRN 06/09/22 03/17/23 History allopurinoL 100 mg PO DAILY 06/09/22 03/17/23 History Albuterol Sulfate [Albuterol 2 puff PO RT-Q4H PRN 01/07/23 03/17/23 History Sulfate Hfa] Dupilumab [Dupixent Syringe] 300 mg SQ Q14D 01/07/23 03/17/23 History Insulin Glargine,Hum.rec.anlog 30 units SQ HS 01/07/23 03/17/23 History [Lantus Solostar Pen] Yuperli 175mcg/3ml 175 mcg INHALATION RT-DAILY 01/07/23 03/17/23 History lisinopriL [Zestril] 2.5 mg PO DAILY 01/07/23 03/17/23 History Aspirin EC [Ecotrin Low Dose] 81 mg PO DAILY 03/17/23 03/17/23 History Ferrous Sulfate [Feosol] 325 mg PO DAILY 03/17/23 03/17/23 History Gabapentin 300 mg PO QID PRN 03/17/23 03/17/23 History Ketorolac [Toradol] 10 mg PO TID 03/17/23 03/17/23 History calcitrioL [Calcitriol] 0.25 mcg PO SUTH 03/17/23 03/17/23 History carvediloL 6.25 mg PO BID-W/MEALS 03/17/23 03/17/23 History Allergies Allergy/AdvReac Type Severity Reaction Status Date / Time No Known Allergies Allergy Verified 03/16/23 23:47 Physical Exam Vitals: Vital Signs Temp Pulse Pulse Resp BP BP Pulse Ox 03/20/23 08:29 60 03/20/23 08:08 60 03/20/23 08:04 03/20/23 07:10 60 0 L 79/50 98 03/20/23 07:00 60 0 L 82/55 97 03/20/23 06:50 60 0 L 82/55 97 03/20/23 06:40 60 2 L 82/55 97 03/20/23 06:30 60 0 L 82/55 97 03/20/23 06:29 03/20/23 06:20 60 0 L 82/55 100 03/20/23 06:10 60 0 L 82/55 99 03/20/23 06:00 60 0 L 82/55 99 03/20/23 05:50 60 0 L 92/53 99 03/20/23 05:40 60 9 L 92/53 99 03/20/23 05:30 60 12 92/53 99 03/20/23 05:20 60 19 92/53 100 03/20/23 05:10 60 18 92/53 100 03/20/23 05:00 60 18 92/53 100 03/20/23 04:50 60 18 92/53 100 03/20/23 04:40 60 18 92/53 100 03/20/23 04:30 60 19 92/53 100 03/20/23 04:20 60 18 92/53 99 03/20/23 04:10 60 18 92/53 99 03/20/23 04:00 60 18 92/53 99 03/20/23 03:50 60 18 92/53 99 03/20/23 03:40 60 19 92/53 99 03/20/23 03:38 03/20/23 03:30 60 19 92/53 100 03/20/23 03:20 113/65 03/20/23 03:10 113/65 03/20/23 03:00 113/65 03/20/23 02:50 63 24 113/65 03/20/23 02:40 60 16 93/61 100 03/20/23 02:30 60 16 93/61 100 03/20/23 02:20 60 16 93/61 100 03/20/23 02:10 60 16 93/61 100 03/20/23 02:00 60 16 93/61 100 03/20/23 01:50 60 0 L 93/61 100 03/20/23 01:40 60 7 L 93/61 100 03/20/23 01:30 60 16 93/61 100 03/20/23 01:20 60 0 L 87/58 100 03/20/23 01:10 60 16 100 03/20/23 01:00 60 16 87/58 100 03/20/23 00:50 60 16 87/58 100 03/20/23 00:40 60 20 81/55 100 03/20/23 00:30 60 16 99/63 99 03/20/23 00:20 60 16 99/63 99 03/20/23 00:10 60 0 L 99/63 100 03/20/23 00:00 60 19 99/63 98 03/19/23 23:50 60 18 99/63 100 03/19/23 23:40 60 18 100 03/19/23 23:30 70 18 98 03/19/23 23:20 60 18 100 03/19/23 23:10 60 18 100 03/19/23 23:00 63 18 99 03/19/23 22:50 60 0 L 100 03/19/23 22:43 03/19/23 22:40 60 13 100 03/19/23 22:30 60 19 100 03/19/23 22:27 03/19/23 22:20 62 11 L 100 03/19/23 22:14 60 10 L 03/19/23 18:04 64 16 126/65 100 03/19/23 16:29 98.3 F 65 16 129/66 97 03/19/23 15:42 72 03/19/23 15:30 70 03/19/23 15:00 97.3 F L 64 16 109/72 96 03/19/23 12:16 68 03/19/23 12:06 64 FiO2 03/20/23 08:29 03/20/23 08:08 03/20/23 08:04 30 03/20/23 07:10 03/20/23 07:00 03/20/23 06:50 03/20/23 06:40 03/20/23 06:30 03/20/23 06:29 30 03/20/23 06:20 03/20/23 06:10 03/20/23 06:00 03/20/23 05:50 03/20/23 05:40 03/20/23 05:30 03/20/23 05:20 03/20/23 05:10 03/20/23 05:00 03/20/23 04:50 03/20/23 04:40 03/20/23 04:30 03/20/23 04:20 03/20/23 04:10 03/20/23 04:00 40 03/20/23 03:50 03/20/23 03:40 03/20/23 03:38 40 03/20/23 03:30 40 03/20/23 03:20 03/20/23 03:10 03/20/23 03:00 03/20/23 02:50 03/20/23 02:40 03/20/23 02:30 03/20/23 02:20 03/20/23 02:10 03/20/23 02:00 03/20/23 01:50 03/20/23 01:40 03/20/23 01:30 03/20/23 01:20 03/20/23 01:10 03/20/23 01:00 03/20/23 00:50 03/20/23 00:40 03/20/23 00:30 03/20/23 00:20 03/20/23 00:10 03/20/23 00:00 50 03/19/23 23:50 03/19/23 23:40 03/19/23 23:30 03/19/23 23:20 03/19/23 23:10 03/19/23 23:00 03/19/23 22:50 03/19/23 22:43 50 03/19/23 22:40 03/19/23 22:30 03/19/23 22:27 100 03/19/23 22:20 03/19/23 22:14 03/19/23 18:04 03/19/23 16:29 03/19/23 15:42 03/19/23 15:30 03/19/23 15:00 03/19/23 12:16 03/19/23 12:06 Intake and Output 03/19/23 03/20/23 03/20/23 22:59 06:59 14:59 Intake Total 2555.069 217.532 55.792 Output Total 1100 635 45 Balance 1455.069 -417.468 10.792 Intake: IV 2552 50 ceFAZolin 2 gm In Sodium 50 Chloride 0.9% 50 ml @ 100 mls/hr IVPB Q8H [facility] Rx#: [id number] Intake, IV Titration 3.069 167.532 55.792 Amount Norepinephrine 4 mg In 14.290 Sodium Chloride 0.9% 250 ml @ 0.03 MCG/KG/MIN 10. 628 mls/hr IV .[id number] BIN Rx#:[id number] propofoL 1,000 mg In 3.069 153.242 55.792 Empty Bag 1 bag @ 15 MCG/ KG/MIN 8.369 mls/hr IV . [id number] BIN Rx#:[id number] Output: Drainage 330 Back 330 Urine 750 305 45 Estimated Blood Loss 350 Other: Voiding Method Indwelling Catheter Indwelling Catheter Weight 90 kg ABP, PAP, CO, CI - Last 8 Hours Arterial Blood Pressure 100/49 Arterial Blood Pressure 97/49 Arterial Blood Pressure 97/49 Arterial Blood Pressure 97/50 Arterial Blood Pressure 97/49 Arterial Blood Pressure 71/51 Arterial Blood Pressure 98/48 Arterial Blood Pressure 102/50 Arterial Blood Pressure 104/57 Arterial Blood Pressure 92/67 Arterial Blood Pressure 96/67 Arterial Blood Pressure 118/66 Arterial Blood Pressure 123/66 Arterial Blood Pressure 118/63 Arterial Blood Pressure 116/61 Arterial Blood Pressure 115/56 Arterial Blood Pressure 117/58 Arterial Blood Pressure 112/55 Arterial Blood Pressure 109/55 Arterial Blood Pressure 107/53 Arterial Blood Pressure 107/54 Arterial Blood Pressure 106/52 Arterial Blood Pressure 112/56 Arterial Blood Pressure 138/62 Arterial Blood Pressure 133/61 Arterial Blood Pressure 132/58 Arterial Blood Pressure 133/58 Arterial Blood Pressure 127/56 Arterial Blood Pressure 131/57 Arterial Blood Pressure 133/58 Arterial Blood Pressure 131/56 Arterial Blood Pressure 135/59 Arterial Blood Pressure 101/43 Arterial Blood Pressure 102/44 GENERAL EXAM: Sedated, calm and follows all commands, synchronous with mechanical ventilator. Orogastric and orotracheal tube are both in place. HEAD: Normocephalic and atraumatic EYES: Normal reaction of pupils, equal size. NOSE: Clear with pink turbinates. THROAT: No erythema or exudates. NECK: No masses, no JVD. CHEST: No chest wall deformity. LUNGS: Equal air entry with no crackles, wheeze, rhonchi or dullness. intubated to the mechanical ventilator CVS: S1 and S2 normal with no audible murmur, regular rhythm. No extra heart sounds ABDOMEN: No hepatosplenomegaly, active bowel sounds, no guarding or rigidity. SPINE: No scoliosis or deformity. Postoperative incisional dressing is clean, dry, intact. Incision is approximated. There is a postoperative Hemovac. Output from the Hemovac is minimal at this point in time. SKIN: No rashes CENTRAL NERVOUS SYSTEM: No focal deficits, tone is normal in all 4 extremities. EXTREMITIES: There is no peripheral edema, clubbing, or cyanosis. Peripheral pulses are intact. Results - Laboratory Findings CBC and BMP: 03/20/23 03:35 03/20/23 03:35 ABG ABG pH 7.40 (7.35-7.45) 03/20/23 06:15 ABG pCO2 40 mmHg (35-45) 03/20/23 06:15 ABG pO2 125 mmHg (83-108) H 03/20/23 06:15 ABG O2 Saturation 100.0 % (94-97) H 03/20/23 06:15 Abnormal lab findings: Abnormal Labs 03/17/23 03/17/23 03/17/23 06:20 06:20 08:22 RBC Hgb Hct RDW Plt Count 102 L Lymphocytes # ABG pO2 ABG Total CO2 ABG O2 Saturation Sodium Potassium 5.3 H Chloride Carbon Dioxide BUN 52 H Creatinine 1.13 H Glucose 163 H POC Glucose (mg/dL) 132 H Magnesium AST 45 H Alkaline Phosphatase 147 H Total Protein Albumin 03/17/23 03/17/23 03/18/23 17:33 21:33 06:10 RBC Hgb Hct RDW Plt Count Lymphocytes # ABG pO2 ABG Total CO2 ABG O2 Saturation Sodium Potassium Chloride Carbon Dioxide BUN Creatinine Glucose POC Glucose (mg/dL) 169 H 170 H 321 H Magnesium AST Alkaline Phosphatase Total Protein Albumin 03/18/23 03/18/23 03/18/23 12:06 17:24 20:49 RBC Hgb Hct RDW Plt Count Lymphocytes # ABG pO2 ABG Total CO2 ABG O2 Saturation Sodium Potassium Chloride Carbon Dioxide BUN Creatinine Glucose POC Glucose (mg/dL) 348 H 369 H 361 H Magnesium AST Alkaline Phosphatase Total Protein Albumin 03/19/23 03/19/23 03/19/23 05:56 09:44 09:44 RBC Hgb 11.2 L Hct RDW Plt Count 103 L Lymphocytes # ABG pO2 ABG Total CO2 ABG O2 Saturation Sodium Potassium 5.6 H Chloride Carbon Dioxide BUN 63 H Creatinine 1.29 H Glucose 207 H POC Glucose (mg/dL) 232 H Magnesium AST Alkaline Phosphatase Total Protein Albumin 03/19/23 03/19/23 03/19/23 12:21 16:51 21:18 RBC Hgb Hct RDW Plt Count Lymphocytes # ABG pO2 ABG Total CO2 ABG O2 Saturation Sodium Potassium Chloride Carbon Dioxide BUN Creatinine Glucose POC Glucose (mg/dL) 124 H 116 H 182 H Magnesium AST Alkaline Phosphatase Total Protein Albumin 03/19/23 03/19/23 03/19/23 22:13 22:20 22:20 RBC 3.26 L Hgb 9.4 L D Hct 29.3 L RDW Plt Count 93 L Lymphocytes # 0.3 L ABG pO2 ABG Total CO2 ABG O2 Saturation Sodium 136 L Potassium Chloride 109 H Carbon Dioxide 21 L BUN 56 H Creatinine Glucose 189 H POC Glucose (mg/dL) 195 H Magnesium 2.5 H AST Alkaline Phosphatase Total Protein Albumin 03/19/23 03/20/23 03/20/23 22:35 03:35 03:35 RBC 3.32 L Hgb 9.6 L Hct 29.9 L RDW 15.6 H Plt Count 104 L Lymphocytes # 0.5 L ABG pO2 226 H ABG Total CO2 25 H ABG O2 Saturation Sodium 136 L Potassium Chloride 108 H Carbon Dioxide BUN 59 H Creatinine 1.12 H Glucose 201 H POC Glucose (mg/dL) Magnesium AST Alkaline Phosphatase Total Protein 5.2 L Albumin 3.1 L 03/20/23 03/20/23 03:37 06:15 RBC Hgb Hct RDW Plt Count Lymphocytes # ABG pO2 125 H ABG Total CO2 26 H ABG O2 Saturation 100.0 H Sodium Potassium Chloride Carbon Dioxide BUN Creatinine Glucose POC Glucose (mg/dL) 213 H Magnesium AST Alkaline Phosphatase Total Protein Albumin - Diagnostic Findings Chest x-ray: image reviewed Assessment and Plan Plan: Fall, recently sustaining a traumatic T11 fracture, and is status postoperative day #1 following a T9 to L2 stabilization. The patient was kept intubated on a mechanical ventilator postop. She is on propofol. Ventilator was checked. Blood gases was noted. Chest x-ray was noted. Patient is in the process of getting a spontaneous breathing trial for possible extubation this morning. Note that the patient was was requiring low-dose of norepinephrine post op and the patient is currently off pressors. Hemodynamically stable. Postoperative mechanical ventilator management, postoperative chest x-ray showed endotracheal tube at the level of the clavicle. There is cardiomegaly, mild pulmonary vessel congestion, and possible trace bilateral pleural effusions. No other acute abnormalities noted on the chest x-ray. The patient also has an AICD in place. Chronic systolic congestive heart failure, recent echocardiogram on 03/18/2023 shows a severely reduced ejection fraction of 30%. History of non-ischemic cardiomyopathy, status post bi-ventricular pacemaker/AICD placement Diabetes mellitus, insulin-dependent, maintained on Levemir insulin 30 units at bedtime in addition to sliding scale insulin coverage. History of hypertension History of hyperlipidemia Chronic kidney disease stage III Acute blood loss anemia, expected outcome of surgery, exacerbating patient's known anemia of chronic disease Chronic thrombocytopenia, stable Chronic bronchial asthma, maintain on a combination of bronchodilators and the patient also has been taken to the [facility] on outpatient basis History of obstructive sleep apnea Obesity, with a BMI of 34.1 kg/m History of COVID-19 pneumonia requiring hospitalization May, History of C2 to T2 decompression and posterior-lateral fusion in 12/08/22, complicated by wound dehiscence and infection, with repeat incision and drainage and excisional debridement on 01/08/2023 History of L2 to pelvis decompression and fusion Plan Wean off propofol Assessment and status Give the patient spontaneous breathing trial with a pressure support of 5 and a PEEP of 5 Obtain subsequent blood gas and if the blood gases appropriate, we'll proceed with extubation. The patient has a stable hemoglobin of 9.8. Monitor the output from the Hemovac Postop computed tomography scan of the lumbar spine was done and is essentially consistent with postsurgical changes. Dilaudid for pain control in combination with Rumely once extubated We'll provide the patient incentive spirometer DVT prophylaxis per surgical recommendations We'll give the patient ICU for further monitoring post extubation. Time with Patient: Greater than 30
[2023-03-20] MEDS: CYCLOBENZAPRINE 5 MG TAB PO PRN (13:06)
--- NOTE | 2023-03-20 17:56 | P.PN ---
Subjective Progress Note Date: 03/20/23 Principal diagnosis: T1 AO Type B3 fracture Patient was seen at bedside this evening in the ICU. Patient is complaining mostly of mid to lower back pain. Patient denies any radiation of pain down the leg. Patient says some of the medication has been helping control pain. She says she has not yet worked with therapy but has been trying to move her extremities in bed. Patient is looking forward to working with therapy this weekend. Patient denies any other issues at this time. Patient denies chest pain, fever, shortness breath, nausea, vomiting, change in vision. Objective - Vital Signs Vital signs: Vital Signs Temp 95.5 F L 03/20/23 13:00 Pulse 61 03/20/23 16:00 Resp 14 03/20/23 16:00 BP 95/52 03/20/23 16:00 Pulse Ox 94 L 03/20/23 16:00 FiO2 30 03/20/23 08:04 Intake & Output 03/19/23 03/20/23 03/20/23 18:59 06:59 18:59 Intake Total 1000 1772.601 390.952 Output Total 1735 445 Balance 1000 37.601 -54.048 Weight 90 kg Intake: IV 1000 1602 90 Invasive Line 1 20 Invasive Line 2 20 ceFAZolin 2 gm In Sodium 50 50 Chloride 0.9% 50 ml @ 100 mls/hr IVPB Q8H BIN Rx#: [id number] Intake, IV Titration 170.601 60.952 Amount Norepinephrine 4 mg In 14.290 Sodium Chloride 0.9% 250 ml @ 0.03 MCG/KG/MIN 10. 628 mls/hr IV .[id number] BIN Rx#:[id number] propofoL 1,000 mg In 156.311 60.952 Empty Bag 1 bag @ 15 MCG/ KG/MIN 8.369 mls/hr IV . [id number] BIN Rx#:[id number] Oral 240 Output: Gastric Drainage 150 Drainage 330 50 Back 330 50 Urine 1055 245 Estimated Blood Loss 350 Other: Voiding Method Indwelling Catheter Indwelling Catheter # Voids 1 # Bowel Movements 0 ABP, PAP, CO, CI - Last Documented Arterial Blood Pressure 134/50 - Exam Inspection: dressing present over spine. mana well aligned and intact. drain in place Sensation: Equal, symmetric, bilaterally intact throughout the upper and lower extremities. Palpation: moderate TTP diffusely throughout the lumbar spine at midline and on the right and left. Moderate TTP at midline in lower thoracic spine. NTTP throughout rest of exam Range of motion: Patient does have good range of motion bilateral lower extremities on exam. There is referred pain to the low back during hip flexion and extension bilaterally as well as knee flexion bilaterally. Patient has full ROM throughout bilateral upper extremities on exam. Motor: 4-/5 in all major motor groups in bilateral lower extremities on exam. 4+/5 in all major motor groups in bilateral upper extremities Special tests: Negative Homans bilaterally. Negative clonus. Negative Elliott bilaterally Neurovascular: Radial pulses intact, 2+ bilaterally. DP pulses palpable bilaterally. Cap refill under 3 seconds in digits of upper extremities. - Labs CBC & Chem 7: 03/20/23 03:35 03/20/23 03:35 Labs: Abnormal Lab Results - Last 24 Hours (Table) 03/19/23 03/19/23 03/19/23 Range/Units 21:18 22:13 22:20 RBC 3.26 L (3.80-5.40) m/uL Hgb 9.4 L D (11.4-16.0) gm/dL Hct 29.3 L (34.0-46.0) % RDW (11.5-15.5) % Plt Count 93 L (150-450) k/uL Lymphocytes # 0.3 L (1.0-4.8) k/uL ABG pO2 (83-108) mmHg ABG Total CO2 (19-24) mmol/L ABG O2 Saturation (94-97) % Sodium (137-145) mmol/L Chloride (98-107) mmol/L Carbon Dioxide (22-30) mmol/L BUN (7-17) mg/dL Creatinine (0.52-1.04) mg/dL Glucose (74-99) mg/dL POC Glucose (mg/dL) 182 H 195 H (70-110) mg/dL Magnesium (1.6-2.3) mg/dL Total Protein (6.3-8.2) g/dL Albumin (3.5-5.0) g/dL 03/19/23 03/19/23 03/20/23 Range/Units 22:20 22:35 03:35 RBC (3.80-5.40) m/uL Hgb (11.4-16.0) gm/dL Hct (34.0-46.0) % RDW (11.5-15.5) % Plt Count (150-450) k/uL Lymphocytes # (1.0-4.8) k/uL ABG pO2 226 H (83-108) mmHg ABG Total CO2 25 H (19-24) mmol/L ABG O2 Saturation (94-97) % Sodium 136 L 136 L (137-145) mmol/L Chloride 109 H 108 H (98-107) mmol/L Carbon Dioxide 21 L (22-30) mmol/L BUN 56 H 59 H (7-17) mg/dL Creatinine 1.12 H (0.52-1.04) mg/dL Glucose 189 H 201 H (74-99) mg/dL POC Glucose (mg/dL) (70-110) mg/dL Magnesium 2.5 H (1.6-2.3) mg/dL Total Protein 5.2 L (6.3-8.2) g/dL Albumin 3.1 L (3.5-5.0) g/dL 03/20/23 03/20/23 03/20/23 Range/Units 03:35 03:37 06:15 RBC 3.32 L (3.80-5.40) m/uL Hgb 9.6 L (11.4-16.0) gm/dL Hct 29.9 L (34.0-46.0) % RDW 15.6 H (11.5-15.5) % Plt Count 104 L (150-450) k/uL Lymphocytes # 0.5 L (1.0-4.8) k/uL ABG pO2 125 H (83-108) mmHg ABG Total CO2 26 H (19-24) mmol/L ABG O2 Saturation 100.0 H (94-97) % Sodium (137-145) mmol/L Chloride (98-107) mmol/L Carbon Dioxide (22-30) mmol/L BUN (7-17) mg/dL Creatinine (0.52-1.04) mg/dL Glucose (74-99) mg/dL POC Glucose (mg/dL) 213 H (70-110) mg/dL Magnesium (1.6-2.3) mg/dL Total Protein (6.3-8.2) g/dL Albumin (3.5-5.0) g/dL 03/20/23 Range/Units 12:18 RBC (3.80-5.40) m/uL Hgb (11.4-16.0) gm/dL Hct (34.0-46.0) % RDW (11.5-15.5) % Plt Count (150-450) k/uL Lymphocytes # (1.0-4.8) k/uL ABG pO2 (83-108) mmHg ABG Total CO2 (19-24) mmol/L ABG O2 Saturation (94-97) % Sodium (137-145) mmol/L Chloride (98-107) mmol/L Carbon Dioxide (22-30) mmol/L BUN (7-17) mg/dL Creatinine (0.52-1.04) mg/dL Glucose (74-99) mg/dL POC Glucose (mg/dL) 160 H (70-110) mg/dL Magnesium (1.6-2.3) mg/dL Total Protein (6.3-8.2) g/dL Albumin (3.5-5.0) g/dL Assessment and Plan Assessment: 1. T11 AO type B3 fracture; Low back pain status post recent fall; history of [id number] decompression fusion - Postop day 1 status post T9-L2 stabilization for T11 fracture Plan: 1. T11 AO type B3 fracture;Low back pain status post recent fall; history of N9oxicoc decompression fusion - surgery performed yesterday, , 03/19/2023. patient seen at bedside this evening in the ICU. Appreciate medical management. Continue pain medications. We'll continue follow patient in hospital. Weightbearing as tolerated with walker and assistance as needed. 2. Appreciate medical management 3. Pain management - norco; gabapentin 4. DVT prophylaxis - aspirin; mechanical 5. GI prophylaxis - senna; protonix 6. PT/OT - weightbearing as tolerated with walker and assistance 7. Encourage incentive spirometer use Time with Patient: Less than 30
[2023-03-20 19:14] LABS: Glucose,Whole Blood 162 mg/dL (70-110)
[2023-03-20 20:07] LABS: Glucose,Whole Blood 149 mg/dL (70-110)
[2023-03-20] MEDS ORDERED: DEXTROSE 50% SYRINGE 50 ML IVP PRN ×2 (20:08)
[2023-03-20] MEDS: MONTELUKAST 10 MG TAB PO SCH (21:25)
[2023-03-20] MEDS: ATORVASTATIN 20 MG TAB PO SCH (21:25)
[2023-03-20] MEDS: MAGNESIUM OXIDE 400 MG TAB PO SCH (21:25)
[2023-03-20] MEDS: TOPIRAMATE 25 MG TAB PO SCH (21:25)
[2023-03-20] MEDS: INSULIN DETEMIR (LEVEMIR) 100 UNIT/ML SYR SQ SCH (21:28)
--- NOTE | 2023-03-21 01:04 | PN ---
PROGRESS NOTE SUBJECTIVE: This is a 67-year-old white female, status post thoracic lumbar fracture surgery, remains in ICU postop. OBJECTIVE: VITAL SIGNS: Blood pressure 111/58, O2 96 on room air, temperature 95.5, pulse 60s to 70s, and respiratory rate 12 to 16. CARDIOVASCULAR: S1, S2. LUNGS: Clear. GI: Soft. HEMATOLOGY: Negative for Homans. PSYCH: Fair mood and affect. ABDOMEN: Soft, nontender. Hemoglobin is 9.6, pH 7.4, PO2 125, O2 saturation 100%. Sugars mid 100s to 200s. Albumin is 3.1. Medications reviewed. Home medications have been ordered. She appears to be stable. Standard postop care. Labs were all reviewed. Medications reviewed. Orders reviewed. Chronic kidney disease stage III, dyslipidemia, hypertension, diabetes mellitus. She has ischemic cardiomyopathy, postoperative mechanical ventilator management. Wean off vent as tolerated. She will be able to wean off the vent and should do fine postop. Please see further orders. MMODL / IJN: [id number] /
[2023-03-21] MEDS: methylPREDNISolone SOD SUCCI 125 MG/2 ML VIAL IV SCH ×3 (01:53→17:23)
[2023-03-21] MEDS: HYDROmorphone 0.5 MG/0.5 ML SYRINGE IVP PRN ×2 (05:34→23:04)
[2023-03-21 05:44] LABS: Basophils % (A) 0 %; Eosinophils % (A) 0 %; HCT 29.5 % (34.0-46.0); HGB 9.4 gm/dL (11.4-16.0); Hypochromasia Moderate; Lymphocytes # (A) 0.5 k/uL (1.0-4.8); Lymphocytes % (A) 5 %; MCHC 31.9 g/dL (31.0-37.0); Mean Platelet Volume 9.2; Monocytes # (A) 0.2 k/uL (0-1.0); Monocytes % (A) 3 %; Neutrophils # (A) 7.6 k/uL (1.3-7.7); Neutrophils % (A) 91 %; Platelet Count 114 k/uL (150-450); RBC 3.24 m/uL (3.80-5.40); RDW 15.5 % (11.5-15.5); WBC 8.3 k/uL (3.8-10.6)
[2023-03-21 06:15] LABS: Glucose,Whole Blood 196 mg/dL (70-110)
[2023-03-21 06:31] LABS: Chloride 108 mmol/L (98-107); Sodium 137 mmol/L (137-145)
[2023-03-21] MEDS: PANTOPRAZOLE 40 MG TABLET PO SCH ×2 (07:42→17:24)
[2023-03-21] MEDS: carvediloL 6.25 MG TAB PO SCH ×2 (07:42→17:24)
[2023-03-21] MEDS: INSULIN ASPART (NovoLOG) 100 UNIT/ML VIAL SQ SCH ×7 (07:49→20:54)
[2023-03-21 07:53] LABS: ALT 12 U/L (4-34); African American GFR (CKD) 49 (>60 ml/min/1.73 sqM); Albumin 3.1 g/dL (3.5-5.0); Anion Gap 7 mmol/L; Blood Urea Nitrogen 76 mg/dL (7-17); Calcium 8.4 mg/dL (8.4-10.2); Carbon Dioxide 22 mmol/L (22-30); Glucose 183 mg/dL (74-99); Non-African American GFR(CKD) 42 (>60 ml/min/1.73 sqM); Total Bilirubin 0.5 mg/dL (0.2-1.3); Total Protein 5.2 g/dL (6.3-8.2)
[2023-03-21 07:58] LABS: Potassium 5.4 mmol/L (3.5-5.1)
[2023-03-21 07:59] LABS: AST 30 U/L (14-36); Alkaline Phosphatase 112 U/L (38-126)
--- NOTE | 2023-03-21 08:23 | XR ---
EXAMINATION TYPE: XR chest 1V DATE OF EXAM: 03/21/2023 COMPARISON: 11/13/2020 HISTORY: Shortness of breath. TECHNIQUE: Single frontal view of the chest is obtained. FINDINGS: There are postsurgical changes of posterior thoracic /lumbar fusion and cervical fusion. There is a AICD/pacemaker device unchanged in position. There are soft tissue mana overlying the m idline thorax. There has been interval removal of the NG tube. There is no airspace consolidation or abnormal interstitial density. There is improvement in the prev iously described pulmonary vascular congestion. No definite pulmonary vascular congestion on the curr ent study. The heart size is normal. IMPRESSION: Clearing of the previously described pulmonary vascular congestion. There is no acute ca rdiopulmonary disease.
[2023-03-21] MEDS: ASPIRIN 81 MG PO SCH (09:01)
[2023-03-21] MEDS: FERROUS SULFATE 325 MG TAB PO SCH (09:01)
[2023-03-21] MEDS: allopurinoL 100 MG TAB PO SCH (09:01)
[2023-03-21] MEDS: HYDROcodone/APAP 10-325MG 1 EACH TAB PO PRN ×3 (09:02→20:52)
[2023-03-21] MEDS: CYANOCOBALAMIN 500 MCG TAB PO SCH (09:03)
[2023-03-21] MEDS: ETODOLAC 300 MG CAPSULE PO SCH ×3 (09:04→21:47)
[2023-03-21] MEDS: SENNOSIDES 8.6 MG TAB PO SCH (09:04)
[2023-03-21] MEDS: IPRATROPIUM-ALBUTEROL 3 ML NEB INHALATION SCH ×4 (09:23→21:29)
--- NOTE | 2023-03-21 09:35 | P.PN ---
Subjective Progress Note Date: 03/21/23 Principal diagnosis: T1 AO Type B3 fracture Patient was seen at bedside this morning in the ICU. Patient is complaining mostly of mid to lower back pain. Patient denies any radiation of pain down the leg. Patient says some of the medication has been helping control pain. Penny ent is looking forward to working with therapy today. Patient denies any other issues at this time. Patient denies chest pain, fever, shortness breath, nausea, vomiting, change in vision. Objective - Vital Signs Vital signs: Vital Signs Temp 97.8 F 03/21/23 00:00 Pulse 64 03/21/23 08:00 Resp 12 03/21/23 08:00 BP 113/87 03/21/23 08:00 Pulse Ox 94 L 03/21/23 08:00 FiO2 35 03/21/23 04:00 Intake & Output 03/20/23 03/21/23 03/21/23 18:59 06:59 18:59 Intake Total 390.952 160 Output Total 470 842 Balance -79.048 -682 Weight 61.3 kg Intake: IV 90 60 Invasive Line 1 20 30 Invasive Line 2 20 30 ceFAZolin 2 gm In Sodium 50 Chloride 0.9% 50 ml @ 100 mls/hr IVPB Q8H BIN Rx#: [id number] Intake, IV Titration 60.952 Amount propofoL 1,000 mg In 60.952 Empty Bag 1 bag @ 15 MCG/ KG/MIN 8.369 mls/hr IV . [id number] BIN Rx#:[id number] Oral 240 100 Output: Gastric Drainage 150 Drainage 50 150 Back 50 150 Urine 270 692 Other: Voiding Method Indwelling Catheter Indwelling Catheter # Bowel Movements 0 0 ABP, PAP, CO, CI - Last Documented Arterial Blood Pressure 134/50 - Exam Inspection: dressing present over spine. mana well aligned and intact. drain in place Sensation: Equal, symmetric, bilaterally intact throughout the upper and lower extremities. Palpation: moderate TTP diffusely throughout the lumbar spine at midline and on the right and left. Moderate TTP at midline in lower thoracic spine. NTTP throughout rest of exam Range of motion: Patient does have good range of motion bilateral lower extremities on exam. There is referred pain to the low back during hip flexion and extension bilaterally as well as knee flexion bilaterally. Patient has full ROM throughout bilateral upper extremities on exam. Motor: 4-/5 in all major motor groups in bilateral lower extremities on exam. 4+/5 in all major motor groups in bilateral upper extremities Special tests: Negative Homans bilaterally. Negative clonus. Negative Elliott bilaterally Neurovascular: Radial pulses intact, 2+ bilaterally. DP pulses palpable bilaterally. Cap refill under 3 seconds in digits of upper extremities. - Labs CBC & Chem 7: 03/21/23 05:07 03/21/23 05:07 Labs: Abnormal Lab Results - Last 24 Hours (Table) 03/20/23 03/20/23 03/20/23 Range/Units 12:18 19:03 20:05 RBC (3.80-5.40) m/uL Hgb (11.4-16.0) gm/dL Hct (34.0-46.0) % Plt Count (150-450) k/uL Lymphocytes # (1.0-4.8) k/uL Potassium (3.5-5.1) mmol/L Chloride (98-107) mmol/L BUN (7-17) mg/dL Creatinine (0.52-1.04) mg/dL Glucose (74-99) mg/dL POC Glucose (mg/dL) 160 H 162 H 149 H (70-110) mg/dL Total Protein (6.3-8.2) g/dL Albumin (3.5-5.0) g/dL 03/21/23 03/21/23 03/21/23 Range/Units 05:07 05:07 06:14 RBC 3.24 L (3.80-5.40) m/uL Hgb 9.4 L (11.4-16.0) gm/dL Hct 29.5 L (34.0-46.0) % Plt Count 114 L (150-450) k/uL Lymphocytes # 0.5 L (1.0-4.8) k/uL Potassium 5.4 H (3.5-5.1) mmol/L Chloride 108 H (98-107) mmol/L BUN 76 H (7-17) mg/dL Creatinine 1.30 H (0.52-1.04) mg/dL Glucose 183 H (74-99) mg/dL POC Glucose (mg/dL) 196 H (70-110) mg/dL Total Protein 5.2 L (6.3-8.2) g/dL Albumin 3.1 L (3.5-5.0) g/dL Assessment and Plan Assessment: 1. T11 AO type B3 fracture; Low back pain status post recent fall; history of [id number] decompression fusion - Postop day 2 status post T9-L2 stabilization for T11 fracture Plan: 1. T11 AO type B3 fracture;Low back pain status post recent fall; history of [id number] decompression fusion - surgery performed , 03/19/2023. patient seen at bedside this morning in the ICU. Appreciate medical management. Continue pain medications. We'll continue follow patient in hospital. Weight bearing as tolerated with walker and assistance as needed. 2. Appreciate medical management 3. Pain management - norco; gabapentin 4. DVT prophylaxis - aspirin; mechanical 5. GI prophylaxis - senna; protonix 6. PT/OT - weightbearing as tolerated with walker and assistance 7. Encourage incentive spirometer use Time with Patient: Less than 30
[2023-03-21] MEDS: [UNRECOGNIZED DRUG - OTHER] INHALATION SCH (11:03)
[2023-03-21 11:14] LABS: Glucose,Whole Blood 250 mg/dL (70-110)
--- NOTE | 2023-03-21 11:36 | P.PN ---
Subjective Progress Note Date: 03/21/23 67-year-old male patient, being seen in the intensive care unit. This morning, the patient intubated on a mechanical ventilator. The patient was kept intubated postop and the patient had a lengthy spine surgery which included a T9 to L2 stabilization. The patient is currently postop day #1. The patient apparently had a fall and fracture of the T11 spine. This morning, the patient on the mechanical ventilator, assist control mode at the rate of 16, tidal volume of 400, FiO2 of 30% with a PEEP of 5. Chest x-ray shows adequate positioning of the orotracheal tube and the patient has cardiomegaly and mild pulmonary vascular congestion and moderate CHF. She is on propofol which was weaned off and she is regaining her level of alertness. She is in the process of getting a spontaneous breathing trial and following that the patient will likely get extubated. She is hemodynamically stable. Cardiac rhythm is sinus. No other significant events overnight. The patient also has labs that showed evidence of 7.8, hemoglobin 9.6 and a platelet count of 104. Sodium is at 136, potassium levels at 4.5, BUN is at 59 with a creatinine of 1.1. LFTs are normal. She is known to have obstructive sleep apnea, hypertension, hyperlipidemia and diabetes mellitus. She also has CHF with impaired LV fu nction and she has an AICD in place patient's of some chronic bronchial asthma and chronic kidney disease. She has had previous spine surgeries as stated in the records. In the emergency department, the patient also had a computed tomography scan of the cervical spine that showed no evidence of any fracture of the spine. There is multilevel degenerative changes noted. 03/21/2023, patient is doing well on room air oxygen. Denies having any specific complaints. Overnight, she utilize BiPAP at a pressure of 12/6 cm of water with FiO2 of 35%. Currently is on room air oxygen. Complaining of back pain. She is taking oral narcotic medications. Pain is under adequate control for now. The Hemovac has put out approximately 200 mL overnight. Using incentive spirometer. No nausea. No vomiting. No chest pain. No other complaints otherwise for now. Objective - Vital Signs Vital signs: Vital Signs Temp 97.8 F 03/21/23 00:00 Pulse 64 03/21/23 08:00 Resp 12 03/21/23 08:00 BP 113/87 03/21/23 08:00 Pulse Ox 94 L 03/21/23 08:00 FiO2 35 03/21/23 04:00 Intake & Output 03/20/23 03/21/23 03/21/23 18:59 06:59 18:59 Intake Total 390.952 160 Output Total 470 842 Balance -79.048 -682 Weight 61.3 kg Intake: IV 90 60 Invasive Line 1 20 30 Invasive Line 2 20 30 ceFAZolin 2 gm In Sodium 50 Chloride 0.9% 50 ml @ 100 mls/hr IVPB Q8H BIN Rx#: [id number] Intake, IV Titration 60.952 Amount propofoL 1,000 mg In 60.952 Empty Bag 1 bag @ 15 MCG/ KG/MIN 8.369 mls/hr IV . [id number] BIN Rx#:[id number] Oral 240 100 Output: Gastric Drainage 150 Drainage 50 150 Back 50 150 Urine 270 692 Other: Voiding Method Indwelling Catheter Indwelling Catheter # Bowel Movements 0 0 ABP, PAP, CO, CI - Last Documented Arterial Blood Pressure 134/50 - Exam GENERAL EXAM: Awake and alert and the patient is currently on room air oxygen HEAD: Normocephalic and atraumatic EYES: Normal reaction of pupils, equal size. NOSE: Clear with pink turbinates. THROAT: No erythema or exudates. NECK: No masses, no JVD. CHEST: No chest wall deformity. LUNGS: Lungs were clear to auscultation and percussion, and with normal diaphragmatic excursion. No wheezes or rales were noted. CVS: S1 and S2 normal with no audible murmur, regular rhythm. No extra heart sounds ABDOMEN: No hepatosplenomegaly, active bowel sounds, no guarding or rigidity. SPINE: No scoliosis or deformity. Postoperative incisional dressing is clean, dry, intact. Incision is approximated. There is a postoperative Hemovac. Output from the Hemovac is minimal at this point in time. SKIN: No rashes CENTRAL NERVOUS SYSTEM: No focal deficits, tone is normal in all 4 extremities. EXTREMITIES: There is no peripheral edema, clubbing, or cyanosis. Peripheral pulses are intact. Motor function in all 4 extremities is 4 out of 5, no Babinski, no clonus, neurovascularly intact - Labs CBC & Chem 7: 03/21/23 05:07 03/21/23 05:07 Labs: Abnormal Lab Results - Last 24 Hours (Table) 03/20/23 03/20/23 03/20/23 Range/Units 12:18 19:03 20:05 RBC (3.80-5.40) m/uL Hgb (11.4-16.0) gm/dL Hct (34.0-46.0) % Plt Count (150-450) k/uL Lymphocytes # (1.0-4.8) k/uL Potassium (3.5-5.1) mmol/L Chloride (98-107) mmol/L BUN (7-17) mg/dL Creatinine (0.52-1.04) mg/dL Glucose (74-99) mg/dL POC Glucose (mg/dL) 160 H 162 H 149 H (70-110) mg/dL Total Protein (6.3-8.2) g/dL Albumin (3.5-5.0) g/dL 03/21/23 03/21/23 03/21/23 Range/Units 05:07 05:07 06:14 RBC 3.24 L (3.80-5.40) m/uL Hgb 9.4 L (11.4-16.0) gm/dL Hct 29.5 L (34.0-46.0) % Plt Count 114 L (150-450) k/uL Lymphocytes # 0.5 L (1.0-4.8) k/uL Potassium 5.4 H (3.5-5.1) mmol/L Chloride 108 H (98-107) mmol/L BUN 76 H (7-17) mg/dL Creatinine 1.30 H (0.52-1.04) mg/dL Glucose 183 H (74-99) mg/dL POC Glucose (mg/dL) 196 H (70-110) mg/dL Total Protein 5.2 L (6.3-8.2) g/dL Albumin 3.1 L (3.5-5.0) g/dL Assessment and Plan Plan: Fall, recently sustaining a traumatic T11 fracture, and is status postoperative day # 2 following a T9 to L2 stabilization. Acute hypoxic respiratory failure, recovered and the patient is currently on room air oxygen Chronic systolic congestive heart failure, recent echocardiogram on 03/18/2023 shows a severely reduced ejection fraction of 30%. History of non-ischemic cardiomyopathy, status post bi-ventricular pacemaker/AICD placement Diabetes mellitus, insulin-dependent, maintained on Levemir insulin 30 units at bedtime in addition to sliding scale insulin coverage. History of hypertension History of hyperlipidemia Chronic kidney disease stage III Acute blood loss anemia, expected outcome of surgery, exacerbating patient's known anemia of chronic disease Chronic thrombocytopenia, stable Chronic bronchial asthma, maintain on a combination of bronchodilators and the patient also has been taken to the [facility] on outpatient basis History of obstructive sleep apnea Obesity, with a BMI of 34.1 kg/m History of COVID-19 pneumonia requiring hospitalization May, History of C2 to T2 decompression and posterior-lateral fusion in 12/08/22, complicated by wound dehiscence and infection, with repeat incision and drainage and excisional debridement on 01/08/2023 History of L2 to pelvis decompression and fusion Plan Patient has been extubated to room air The patient has a stable hemoglobin of 9. for Monitor the output from the Hemovac Postop computed tomography scan of the lumbar spine was done and is essentially consistent with postsurgical changes. Pain control with [place] We'll provide the patient incentive spirometer DVT prophylaxis per surgical recommendations Patient may be transferred out of the intensive care unit.
[2023-03-21] MEDS: GABAPENTIN 300 MG CAP PO PRN (12:13)
[2023-03-21] MEDS: CYCLOBENZAPRINE 5 MG TAB PO PRN ×2 (14:40→20:55)
[2023-03-21 16:46] LABS: Glucose,Whole Blood 214 mg/dL (70-110)
[2023-03-21] MEDS ORDERED: LACTULOSE 20 GM/30 ML CUP PO ONE (17:21)
[2023-03-21] MEDS ORDERED: SODIUM POLYSTYRENE SULFONATE 15 GM/60 ML BOTTLE PO STA (18:09)
--- NOTE | 2023-03-21 18:11 | P.PN ---
Progress Note - Text Progress Note Date: 03/21/23 Presenting complaint: Back surgery Hospital course: 03/21/2023: I'm rounding for Dr. Vishal Snell Patient is moved out of the ICU. Still having's some back pain at the surgical site. Has not had a bowel movement for about 67 days. Will be given lactulose. Has a Reddy catheter. Oral intake is good. Did stand up and take a few steps. Active Medications Acetaminophen (Acetaminophen Tab 325 Mg Tab) 650 mg PO Q6HR PRN PRN Reason: Mild Pain or Fever > 100.5 Last Admin: 03/20/23 12:05 Dose: 650 mg Hydrocodone Bitart/Acetaminophen (Hydrocodone/Apap 5-325mg 1 Each Tab) 1 each PO Q4HR PRN PRN Reason: Moderate Pain (Scale 4 to 6) Last Admin: 03/19/23 08:47 Dose: 1 each Hydrocodone Bitart/Acetaminophen (Hydrocodone/Apap 10-325mg 1 Each Tab) 1 each PO Q6H PRN PRN Reason: Pain Scale 7 - 10 Last Admin: 03/21/23 14:40 Dose: 1 each Albuterol/Ipratropium (Ipratropium-Albuterol 3 Ml Neb) 3 ml INHALATION RT-QID [facility] Last Admin: 03/21/23 14:58 Dose: 3 ml Allopurinol (Allopurinol 100 Mg Tab) 100 mg PO DAILY [facility] Last Admin: 03/21/23 09:01 Dose: 100 mg Aspirin (Aspirin 81 Mg) 81 mg PO DAILY [facility] Last Admin: 03/21/23 09:01 Dose: 81 mg Atorvastatin Calcium (Atorvastatin 20 Mg Tab) 20 mg PO HS [facility] Last Admin: 03/20/23 21:25 Dose: 20 mg Calcitriol (Calcitriol 0.25 Mcg Cap) 0.25 mcg PO SUTH [facility] Last Admin: 03/19/23 08:48 Dose: 0.25 mcg Carvedilol (Carvedilol 6.25 Mg Tab) 6.25 mg PO BID-W/MEALS [facility] Last Admin: 03/21/23 17:24 Dose: 6.25 mg Cyanocobalamin (Cyanocobalamin 500 Mcg Tab) 1,000 mcg PO DAILY [facility] Last Admin: 03/21/23 09:03 Dose: 1,000 mcg Cyclobenzaprine HCl (Cyclobenzaprine 5 Mg Tab) 5 mg PO TID PRN PRN Reason: Muscle Spasm Last Admin: 03/21/23 14:40 Dose: 5 mg Dextrose/Water (Dextrose 50% Syringe 50 Ml) 25 ml IVP PER PROTOCOL PRN; Protocol PRN Reason: Hypoglycemia Dextrose/Water (Dextrose 50% Syringe 50 Ml) 50 ml IVP PER PROTOCOL PRN; Protocol PRN Reason: Hypoglycemia Etodolac (Etodolac 300 Mg Capsule) 300 mg PO TID [facility] Last Admin: 03/21/23 16:31 Dose: 300 mg Ferrous Sulfate (Ferrous Sulfate 325 Mg Tab) 325 mg PO DAILY [facility] Last Admin: 03/21/23 09:01 Dose: 325 mg Gabapentin (Gabapentin 300 Mg Cap) 300 mg PO QID PRN PRN Reason: Pain Last Admin: 03/21/23 12:13 Dose: 300 mg Hydromorphone HCl (Hydromorphone 1 Mg/Ml 1 Ml Syringe) 1 mg IVP Q3HR PRN PRN Reason: Severe Pain (Scale 7 to 10) Last Admin: 03/20/23 09:10 Dose: 1 mg Hydromorphone HCl (Hydromorphone 0.5 Mg/0.5 Ml Syringe) 0.5 mg IVP Q3HR PRN PRN Reason: Pain Scale 4 - 6 Last Admin: 03/21/23 05:34 Dose: 0.5 mg Insulin Aspart (Insulin Aspart (Novolog) 100 Unit/Ml Vial) 10 unit SQ TID- W/MEALS [facility] Last Admin: 03/21/23 17:23 Dose: 10 unit Insulin Aspart (Insulin Aspart (Novolog) 100 Unit/Ml Vial) 0 unit SQ [facility]; Protocol Last Admin: 03/21/23 17:24 Dose: 4 unit Insulin Detemir (Insulin Detemir (Levemir) 100 Unit/Ml Syr) 30 unit SQ [facility] Last Admin: 03/20/23 21:28 Dose: Not Given Lisinopril (Lisinopril 2.5 Mg Tab) 2.5 mg PO DAILY [facility] Last Admin: 03/21/23 11:03 Dose: Not Given Magnesium Hydroxide (Magnesium Hydroxide 2,400 Mg/30 Ml Cup) 2,400 mg PO DAILY PRN PRN Reason: Constipation Last Admin: 03/20/23 12:09 Dose: 2,400 mg Magnesium Oxide (Magnesium Oxide 400 Mg Tab) 400 mg PO HS BIN Last Admin: 03/20/23 21:25 Dose: 400 mg Methylprednisolone Sodium Succinate (Methylprednisolone Sod Succi 125 Mg/2 Ml Vial) 40 mg IV Q8H [facility] Last Admin: 03/21/23 17:23 Dose: 40 mg Midodrine (Midodrine 5 Mg Tab) 10 mg PO TID PRN PRN Reason: Blood Pressure - Low Last Admin: 03/20/23 12:06 Dose: 10 mg Montelukast Sodium (Montelukast 10 Mg Tab) 10 mg PO [facility] Last Admin: 03/20/23 21:25 Dose: 10 mg Naloxone HCl (Naloxone 0.4 Mg/Ml 1 Ml Vial) 0.2 mg IV Q2M PRN PRN Reason: Opioid Reversal Non-Formulary Medication (Dupilumab [Dupixent Syringe]) 300 mg SQ Q14D [facility] Non-Formulary Medication (Yuperli 175mcg/3ml) 175 mcg INHALATION RT-DAILY [facility] Last Admin: 03/21/23 11:03 Dose: Not Given Ondansetron HCl (Ondansetron 4 Mg/2 Ml Vial) 4 mg IVP Q8HR PRN PRN Reason: Nausea And Vomiting Pantoprazole Sodium (Pantoprazole 40 Mg Tablet) 40 mg PO AC-BID [facility] Last Admin: 03/21/23 17:24 Dose: 40 mg Senna (Sennosides 8.6 Mg Tab) 8.6 mg PO DAILY [facility] Last Admin: 03/21/23 09:04 Dose: 8.6 mg Senna/Docusate Sodium (Sennosides-Docusate Sodium 1 Each Tab) 2 each PO DAILY PRN PRN Reason: Constipation Last Admin: 03/20/23 12:06 Dose: 2 each Topiramate (Topiramate 25 Mg Tab) 50 mg PO [facility] Last Admin: 03/20/23 21:25 Dose: 50 mg INVESTIGATIONS, reviewed in the clinical context: March 21: White count 8.3 hemoglobin 9.4 platelets 114 sodium 137 potassium 5.4 BUN 76 creatinine 1.30 Assessment and plan: Fall, recently sustaining a traumatic T11 fracture, and is status postoperative day # 2 following a T9 to L2 stabilization. Acute hypoxic respiratory failure, recovered and the patient is currently on room air Chronic systolic congestive heart failure, [ echocardiogram on 03/18/2023 ] reduced ejection fraction of 30%.non-ischemic cardiomyopathy, status post bi- ventricular pacemaker/AICD placement Diabetes mellitus, insulin-dependent, uncontrolled with hyperglycemia Increase Levemir insulin 36 units at bedtime in addition to sliding scale insulin coverage. NovoLog 10 units before meals 3 times a day Essential hypertension hyperlipidemia Chronic kidney disease stage III likely nephrosclerosis Acute blood loss anemia, expected outcome of surgery, Ferrous sulfate anemia of chronic disease, secondary to CK D Chronic thrombocytopenia, stable Chronic bronchial asthma, DuoNeb and the patient also has been taken to the [facility] on outpatient basis obstructive sleep apnea History of COVID-19 pneumonia requiring hospitalization May, History of C2 to T2 decompression and posterior-lateral fusion in 12/08/22, complicated by wound dehiscence and infection, with repeat incision and drainage and excisional debridement on 01/08/2023 Constipation secondary to decreased activity and pain medications Lactulose 20 g 1 now Discussed with patient. Increase Levemir. Lactulose.
[2023-03-21] MEDS: MONTELUKAST 10 MG TAB PO SCH (20:33)
[2023-03-21] MEDS: INSULIN DETEMIR (LEVEMIR) 100 UNIT/ML SYR SQ SCH (20:33)
[2023-03-21] MEDS: MAGNESIUM OXIDE 400 MG TAB PO SCH (20:33)
[2023-03-21] MEDS: ATORVASTATIN 20 MG TAB PO SCH (20:33)
[2023-03-21 20:36] LABS: Glucose,Whole Blood 240 mg/dL (70-110)
[2023-03-21] MEDS: TOPIRAMATE 25 MG TAB PO SCH (20:53)
[2023-03-22] MEDS: methylPREDNISolone SOD SUCCI 125 MG/2 ML VIAL IV SCH ×3 (02:57→19:46)
[2023-03-22 05:38] LABS: Glucose,Whole Blood 175 mg/dL (70-110)
[2023-03-22] MEDS: HYDROcodone/APAP 10-325MG 1 EACH TAB PO PRN ×3 (06:18→20:19)
[2023-03-22] MEDS: PANTOPRAZOLE 40 MG TABLET PO SCH ×2 (06:18→17:46)
[2023-03-22] MEDS: CYCLOBENZAPRINE 5 MG TAB PO PRN ×2 (06:18→20:20)
[2023-03-22] MEDS: carvediloL 6.25 MG TAB PO SCH ×2 (06:18→16:57)
[2023-03-22] MEDS: INSULIN ASPART (NovoLOG) 100 UNIT/ML VIAL SQ SCH ×7 (06:19→20:38)
[2023-03-22] MEDS: IPRATROPIUM-ALBUTEROL 3 ML NEB INHALATION SCH ×4 (07:52→22:18)
[2023-03-22] MEDS: ASPIRIN 81 MG PO SCH (07:53)
[2023-03-22] MEDS: allopurinoL 100 MG TAB PO SCH (07:54)
[2023-03-22] MEDS: FERROUS SULFATE 325 MG TAB PO SCH (07:54)
[2023-03-22] MEDS: CYANOCOBALAMIN 500 MCG TAB PO SCH (07:54)
[2023-03-22] MEDS: SENNOSIDES 8.6 MG TAB PO SCH (07:54)
[2023-03-22] MEDS: [UNRECOGNIZED DRUG - OTHER] INHALATION SCH (07:55)
[2023-03-22] MEDS: ETODOLAC 300 MG CAPSULE PO SCH ×3 (07:56→21:36)
[2023-03-22] MEDS: HYDROmorphone 0.5 MG/0.5 ML SYRINGE IVP PRN ×2 (08:02→22:40)
--- NOTE | 2023-03-22 10:50 | P.PN ---
Subjective Progress Note Date: 03/22/23 Principal diagnosis: T1 AO Type B3 fracture Patient was seen at bedside this morning on 4S. Patient is complaining mostly of mid to lower back pain. Patient denies any radiation of pain down the leg. Patient says some of the medication has been helping control pain. Patientsays she did get out of be yesterday once transferred to 4S and sat in chair. Patient denies any other issues at this time. Patient denies chest pain, fever, shortness breath, nausea, vomiting, change in vision. Objective - Vital Signs Vital signs: Vital Signs Temp 97.6 F 03/22/23 06:45 Pulse 76 03/22/23 08:05 Resp 19 03/22/23 07:15 BP 113/70 03/22/23 06:45 Pulse Ox 98 03/22/23 06:45 FiO2 35 03/22/23 04:45 Intake & Output 03/21/23 03/22/23 03/22/23 18:59 06:59 18:59 Output Total 120 705 Balance -120 -705 Output: Drainage 60 80 Back 60 80 Urine 60 625 Other: Voiding Method Indwelling Catheter Indwelling Catheter Indwelling Catheter # Voids 0 ABP, PAP, CO, CI - Last Documented Arterial Blood Pressure 134/50 - Exam Inspection: dressing present over spine. mana well aligned and intact. drain in place Sensation: Equal, symmetric, bilaterally intact throughout the upper and lower extremities. Palpation: moderate TTP diffusely throughout the lumbar spine at midline and on the right and left. Moderate TTP at midline in lower thoracic spine. NTTP throughout rest of exam Range of motion: Patient does have good range of motion bilateral lower extremities on exam. There is referred pain to the low back during hip flexion and extension bilaterally as well as knee flexion bilaterally. Patient has full ROM throughout bilateral upper extremities on exam. Motor: 4-/5 in all major motor groups in bilateral lower extremities on exam. 4+/5 in all major motor groups in bilateral upper extremities Special tests: Negative Homans bilaterally. Negative clonus. Negative Elliott bilaterally Neurovascular: Radial pulses intact, 2+ bilaterally. DP pulses palpable bilaterally. Cap refill under 3 seconds in digits of upper extremities. - Labs CBC & Chem 7: 03/21/23 05:07 03/21/23 05:07 Labs: Abnormal Lab Results - Last 24 Hours (Table) 01/03/21/23 03/21/23 Range/Units 11:11 16:45 20:33 POC Glucose (mg/dL) 250 H 214 H 240 H (70-110) mg/dL 03/22/23 Range/Units 05:36 POC Glucose (mg/dL) 175 H (70-110) mg/dL Assessment and Plan Assessment: 1. T11 AO type B3 fracture; Low back pain status post recent fall; history of [id number] decompression fusion - Postop day 3 status post T9-L2 stabilization for T11 fracture Plan: 1. T11 AO type B3 fracture;Low back pain status post recent fall; history of [id number] decompression fusion - surgery performed , 03/19/2023. patient seen at bedside this morning. Appreciate medical management. Continue pain medications. We'll continue follow patient in hospital. Maintain drain to gravity. Discontnue bill. Weightbearing as tolerated with walker and assistance as needed. 2. Appreciate medical management 3. Pain management - norco; gabapentin 4. DVT prophylaxis - aspirin; mechanical 5. GI prophylaxis - senna; protonix 6. PT/OT - weightbearing as tolerated with walker and assistance 7. Encourage incentive spirometer use Time with Patient: Less than 30
[2023-03-22 11:50] LABS: Glucose,Whole Blood 197 mg/dL (70-110)
--- NOTE | 2023-03-22 13:53 | P.PN ---
Subjective Progress Note Date: 03/22/23 67-year-old male patient, being seen in the intensive care unit. This morning, the patient intubated on a mechanical ventilator. The patient was kept intubated postop and the patient had a lengthy spine surgery which included a T9 to L2 stabilization. The patient is currently postop day #1. The patient apparently had a fall and fracture of the T11 spine. This morning, the patient on the mechanical ventilator, assist control mode at the rate of 16, tidal volume of 400, FiO2 of 30% with a PEEP of 5. Chest x-ray shows adequate positioning of the orotracheal tube and the patient has cardiomegaly and mild pulmonary vascular congestion and moderate CHF. She is on propofol which was weaned off and she is regaining her level of alertness. She is in the process of getting a spontaneous breathing trial and following that the patient will likely get extubated. She is hemodynamically stable. Cardiac rhythm is sinus. No other significant events overnight. The patient also has labs that showed evidence of 7.8, hemoglobin 9.6 and a platelet count of 104. Sodium is at 136, potassium levels at 4.5, BUN is at 59 with a creatinine of 1.1. LFTs are normal. She is known to have obstructive sleep apnea, hypertension, hyperlipidemia and diabetes mellitus. She also has CHF with impaired LV fu nction and she has an AICD in place patient's of some chronic bronchial asthma and chronic kidney disease. She has had previous spine surgeries as stated in the records. In the emergency department, the patient also had a computed tomography scan of the cervical spine that showed no evidence of any fracture of the spine. There is multilevel degenerative changes noted. 03/21/2023, patient is doing well on room air oxygen. Denies having any specific complaints. Overnight, she utilize BiPAP at a pressure of 12/6 cm of water with FiO2 of 35%. Currently is on room air oxygen. Complaining of back pain. She is taking oral narcotic medications. Pain is under adequate control for now. The Hemovac has put out approximately 200 mL overnight. Using incentive spirometer. No nausea. No vomiting. No chest pain. No other complaints otherwise for now. 03/22/2023, the patient is a specific complaints. She is on room air oxygen. Using incentive spirometer. Hemovac has produced approximately 80 mL overnight and the catheter will be kept in place. Hemodynamically stable. Outpatient medications have been resumed and the patient was transferred out of the intensive care unit yesterday and the patient is currently on a medical floor. Labs from yesterday was noted and the hemoglobin was stable. No new labs are available from today. Most recent creatinine is at 1.3. Objective - Vital Signs Vital signs: Vital Signs Temp 97.6 F 03/22/23 06:45 Pulse 76 03/22/23 08:05 Resp 19 03/22/23 07:15 BP 113/70 03/22/23 06:45 Pulse Ox 98 03/22/23 06:45 FiO2 35 03/22/23 04:45 Intake & Output 03/21/23 03/22/23 03/22/23 18:59 06:59 18:59 Output Total 120 705 Balance -120 -705 Output: Drainage 60 80 Back 60 80 Urine 60 625 Other: Voiding Method Indwelling Catheter Indwelling Catheter Indwelling Catheter # Voids 0 ABP, PAP, CO, CI - Last Documented Arterial Blood Pressure 134/50 - Exam GENERAL EXAM: Awake and alert and the patient is currently on room air oxygen HEAD: Normocephalic and atraumatic EYES: Normal reaction of pupils, equal size. NOSE: Clear with pink turbinates. THROAT: No erythema or exudates. NECK: No masses, no JVD. CHEST: No chest wall deformity. LUNGS: Lungs were clear to auscultation and percussion, and with normal diaphragmatic excursion. No wheezes or rales were noted. CVS: S1 and S2 normal with no audible murmur, regular rhythm. No extra heart sounds ABDOMEN: No hepatosplenomegaly, active bowel sounds, no guarding or rigidity. SPINE: No scoliosis or deformity. Postoperative incisional dressing is clean, dry, intact. Incision is approximated. There is a postoperative Hemovac. Output from the Hemovac is minimal at this point in time. SKIN: No rashes CENTRAL NERVOUS SYSTEM: No focal deficits, tone is normal in all 4 extremities. EXTREMITIES: There is no peripheral edema, clubbing, or cyanosis. Peripheral pulses are intact. Motor function in all 4 extremities is 4 out of 5, no Babinski, no clonus, neurovascularly intact - Labs CBC & Chem 7: 03/21/23 05:07 03/21/23 05:07 Labs: Abnormal Lab Results - Last 24 Hours (Table) 03/21/23 03/21/23 03/21/23 Range/Units 11:11 16:45 20:33 POC Glucose (mg/dL) 250 H 214 H 240 H (70-110) mg/dL 03/22/23 Range/Units 05:36 POC Glucose (mg/dL) 175 H (70-110) mg/dL Assessment and Plan Plan: Fall, recently sustaining a traumatic T11 fracture, and is status postoperative day # 3 following a T9 to L2 stabilization. Acute hypoxic respiratory failure, recovered and the patient is currently on room air oxygen Chronic systolic congestive heart failure, recent echocardiogram on 03/18/2023 shows a severely reduced ejection fraction of 30%. History of non-ischemic cardiomyopathy, status post bi-ventricular pacemaker/AICD placement Diabetes mellitus, insulin-dependent, maintained on Levemir insulin 30 units at bedtime in addition to sliding scale insulin coverage. History of hypertension History of hyperlipidemia Chronic kidney disease stage III Acute blood loss anemia, expected outcome of surgery, exacerbating patient's known anemia of chronic disease Chronic thrombocytopenia, stable Chronic bronchial asthma, maintain on a combination of bronchodilators and the patient also has been taken to the [facility] on outpatient basis History of obstructive sleep apnea Obesity, with a BMI of 34.1 kg/m History of COVID-19 pneumonia requiring hospitalization May, History of C2 to T2 decompression and posterior-lateral fusion in 12/08/22, complicated by wound dehiscence and infection, with repeat incision and drainage and excisional debridement on 01/08/2023 History of L2 to pelvis decompression and fusion Plan Patient has been extubated to room air The patient has a stable hemoglobin of 9. Monitor the output from the Hemovac, possibly will be removed within next 24 hours Postop computed tomography scan of the lumbar spine was done and is essentially consistent with postsurgical changes. Pain control with [place] We'll provide the patient incentive spirometer DVT prophylaxis per surgical recommendations Patient is out of the intensive care unit on a medical floor.
[2023-03-22] MEDS ORDERED: MAGNESIUM CITRATE 296 ML BOTTLE PO ONE (14:41)
[2023-03-22 17:32] LABS: Glucose,Whole Blood 235 mg/dL (70-110)
[2023-03-22] MEDS: INSULIN DETEMIR (LEVEMIR) 100 UNIT/ML SYR SQ SCH (20:19)
[2023-03-22] MEDS: ATORVASTATIN 20 MG TAB PO SCH (20:19)
[2023-03-22] MEDS: MAGNESIUM OXIDE 400 MG TAB PO SCH (20:19)
[2023-03-22] MEDS: MONTELUKAST 10 MG TAB PO SCH (20:19)
[2023-03-22] MEDS: TOPIRAMATE 25 MG TAB PO SCH (20:20)
[2023-03-22 20:34] LABS: Glucose,Whole Blood 149 mg/dL (70-110)
--- NOTE | 2023-03-22 21:22 | P.PN ---
Progress Note - Text Progress Note Date: 03/22/23 Presenting complaint: Back surgery Hospital course: 03/21/2023: I'm rounding for Dr. Vishal Snell Patient is moved out of the ICU. Still having's some back pain at the surgical site. Has not had a bowel movement for about 67 days. Will be given lactulose. Has a Reddy catheter. Oral intake is good. Did stand up and take a few steps. 03/22/2023: Laying in bed. He is given lactulose yesterday. Normal. No other medications. Eating well. Pain is better. Has a visitor Active Medications Acetaminophen (Acetaminophen Tab 325 Mg Tab) 650 mg PO Q6HR PRN PRN Reason: Mild Pain or Fever > 100.5 Last Admin: 03/20/23 12:05 Dose: 650 mg Hydrocodone Bitart/Acetaminophen (Hydrocodone/Apap 5-325mg 1 Each Tab) 1 each PO Q4HR PRN PRN Reason: Moderate Pain (Scale 4 to 6) Last Admin: 03/19/23 08:47 Dose: 1 each Hydrocodone Bitart/Acetaminophen (Hydrocodone/Apap 10-325mg 1 Each Tab) 1 each PO Q6H PRN PRN Reason: Pain Scale 7 - 10 Last Admin: 03/22/23 20:19 Dose: 1 each Albuterol/Ipratropium (Ipratropium-Albuterol 3 Ml Neb) 3 ml INHALATION RT-QID [facility] Last Admin: 03/22/23 15:15 Dose: 3 ml Allopurinol (Allopurinol 100 Mg Tab) 100 mg PO DAILY [facility] Last Admin: 03/22/23 07:54 Dose: 100 mg Aspirin (Aspirin 81 Mg) 81 mg PO DAILY [facility] Last Admin: 03/22/23 07:53 Dose: 81 mg Atorvastatin Calcium (Atorvastatin 20 Mg Tab) 20 mg PO HS [facility] Last Admin: 03/22/23 20:19 Dose: 20 mg Calcitriol (Calcitriol 0.25 Mcg Cap) 0.25 mcg PO SUTH [facility] Last Admin: 03/22/23 07:56 Dose: 0.25 mcg Carvedilol (Carvedilol 6.25 Mg Tab) 6.25 mg PO BID-W/MEALS [facility] Last Admin: 03/22/23 16:57 Dose: 6.25 mg Cyanocobalamin (Cyanocobalamin 500 Mcg Tab) 1,000 mcg PO DAILY [facility] Last Admin: 03/22/23 07:54 Dose: 1,000 mcg Cyclobenzaprine HCl (Cyclobenzaprine 5 Mg Tab) 5 mg PO TID PRN PRN Reason: Muscle Spasm Last Admin: 03/22/23 20:20 Dose: 5 mg Dextrose/Water (Dextrose 50% Syringe 50 Ml) 25 ml IVP PER PROTOCOL PRN; Protocol PRN Reason: Hypoglycemia Dextrose/Water (Dextrose 50% Syringe 50 Ml) 50 ml IVP PER PROTOCOL PRN; Protocol PRN Reason: Hypoglycemia Etodolac (Etodolac 300 Mg Capsule) 300 mg PO TID [facility] Last Admin: 03/22/23 16:56 Dose: 300 mg Ferrous Sulfate (Ferrous Sulfate 325 Mg Tab) 325 mg PO DAILY [facility] Last Admin: 03/22/23 07:54 Dose: 325 mg Gabapentin (Gabapentin 300 Mg Cap) 300 mg PO QID PRN PRN Reason: Pain Last Admin: 03/21/23 12:13 Dose: 300 mg Hydromorphone HCl (Hydromorphone 1 Mg/Ml 1 Ml Syringe) 1 mg IVP Q3HR PRN PRN Reason: Severe Pain (Scale 7 to 10) Last Admin: 03/20/23 09:10 Dose: 1 mg Hydromorphone HCl (Hydromorphone 0.5 Mg/0.5 Ml Syringe) 0.5 mg IVP Q3HR PRN PRN Reason: Pain Scale 4 - 6 Last Admin: 03/22/23 08:02 Dose: 0.5 mg Insulin Aspart (Insulin Aspart (Novolog) 100 Unit/Ml Vial) 10 unit SQ TID- W/MEALS [facility] Last Admin: 03/22/23 17:44 Dose: 10 unit Insulin Aspart (Insulin Aspart (Novolog) 100 Unit/Ml Vial) 0 unit SQ ACHS [facility]; Protocol Last Admin: 03/22/23 20:38 Dose: Not Given Insulin Detemir (Insulin Detemir (Levemir) 100 Unit/Ml Syr) 36 unit SQ HS [facility] Last Admin: 03/22/23 20:19 Dose: 36 unit Lisinopril (Lisinopril 2.5 Mg Tab) 2.5 mg PO DAILY [facility] Last Admin: 03/22/23 07:53 Dose: 2.5 mg Magnesium Hydroxide (Magnesium Hydroxide 2,400 Mg/30 Ml Cup) 2,400 mg PO DAILY PRN PRN Reason: Constipation Last Admin: 03/20/23 12:09 Dose: 2,400 mg Magnesium Oxide (Magnesium Oxide 400 Mg Tab) [address] [facility] Last Admin: 03/22/23 20:19 Dose: 400 mg Methylprednisolone Sodium Succinate (Methylprednisolone Sod Succi 125 Mg/2 Ml Vial) 40 mg IV Q8H [facility] Last Admin: 03/22/23 19:46 Dose: 40 mg Midodrine (Midodrine 5 Mg Tab) 10 mg PO TID PRN PRN Reason: Blood Pressure - Low Last Admin: 03/20/23 12:06 Dose: 10 mg Montelukast Sodium (Montelukast 10 Mg Tab) [address] [facility] Last Admin: 03/22/23 20:19 Dose: 10 mg Naloxone HCl (Naloxone 0.4 Mg/Ml 1 Ml Vial) 0.2 mg IV Q2M PRN PRN Reason: Opioid Reversal Non-Formulary Medication (Dupilumab [Dupixent Syringe]) 300 mg SQ Q14D [facility] Non-Formulary Medication (Yuperli 175mcg/3ml) 175 mcg INHALATION RT-DAILY [facility] Last Admin: 03/22/23 07:55 Dose: Not Given Ondansetron HCl (Ondansetron 4 Mg/2 Ml Vial) 4 mg IVP Q8HR PRN PRN Reason: Nausea And Vomiting Pantoprazole Sodium (Pantoprazole 40 Mg Tablet) 40 mg PO AC-BID [facility] Last Admin: 03/22/23 17:46 Dose: 40 mg Senna (Sennosides 8.6 Mg Tab) 8.6 mg PO DAILY [facility] Last Admin: 03/22/23 07:54 Dose: 8.6 mg Senna/Docusate Sodium (Sennosides-Docusate Sodium 1 Each Tab) 2 each PO DAILY PRN PRN Reason: Constipation Last Admin: 03/20/23 12:06 Dose: 2 each Topiramate (Topiramate 25 Mg Tab) [address] [facility] Last Admin: 03/22/23 20:20 Dose: 50 mg On examination: VITAL SIGNS: [97.8, 75, 18, 10 4 x 61, 100% room air] GENERAL APPEARANCE: . Lying in bed, comfortable HEENT: Normal external appearance of nose and ear. Oral cavity normal EYES: Pupils equal. Conjunctiva normal. NECK: JVD not raised. Mass not palpable. RESPIRATORY: Respiratory effort normal. Lungs clear to auscultation. CARDIOVASCULAR: First and second sounds normal. No edema. ABDOMEN: Soft. Liver and spleen not palpable. No tenderness. No mass palpable. PSYCHIATRY: Alert and oriented x3. Mood and affect normal. NEUROLOGICAL: Able to move her legs. Sensation present INVESTIGATIONS, reviewed in the clinical context: March 21: White count 8.3 hemoglobin 9.4 platelets 114 sodium 137 potassium 5.4 BUN 76 creatinine 1.30 Assessment and plan: Fall, recently sustaining a traumatic T11 fracture, and is status postoperative day # 2 following a T9 to L2 stabilization. Acute hypoxic respiratory failure, recovered and the patient is currently on room air Chronic systolic congestive heart failure, [ echocardiogram on 03/18/2023 ] reduced ejection fraction of 30%.non-ischemic cardiomyopathy, status post bi- ventricular pacemaker/AICD placement Diabetes mellitus, insulin-dependent, uncontrolled with hyperglycemia Levemir insulin 36 units at bedtime in addition to sliding scale insulin coverage. NovoLog 10 units before meals 3 times a day Essential hypertension hyperlipidemia Chronic kidney disease stage III likely nephrosclerosis Acute blood loss anemia, expected outcome of surgery, Ferrous sulfate anemia of chronic disease, secondary to CK D Chronic thrombocytopenia, stable Chronic bronchial asthma, DuoNeb and the patient also has been taken to the [facility] on outpatient basis obstructive sleep apnea History of COVID-19 pneumonia requiring hospitalization May, History of C2 to T2 decompression and posterior-lateral fusion in 12/08/22, complicated by wound dehiscence and infection, with repeat incision and drainage and excisional debridement on 01/08/2023 Constipation secondary to decreased activity and pain medications No BM yet lactulose. Magnesium citrate ordered Discussed with patient. Magnesium citrate ordered
[2023-03-23] MEDS: methylPREDNISolone SOD SUCCI 125 MG/2 ML VIAL IV SCH ×3 (02:16→17:27)
[2023-03-23 05:32] LABS: Glucose,Whole Blood 145 mg/dL (70-110)
[2023-03-23] MEDS: CYCLOBENZAPRINE 5 MG TAB PO PRN (05:48)
[2023-03-23] MEDS: HYDROcodone/APAP 10-325MG 1 EACH TAB PO PRN ×3 (05:48→23:05)
[2023-03-23] MEDS ORDERED: NON FORMULARY DRUG (Dupilumab [Dupixent Syringe] 300 MG/2 ML Each) SQ SCH (06:00)
[2023-03-23] MEDS: PANTOPRAZOLE 40 MG TABLET PO SCH ×2 (06:18→16:59)
[2023-03-23] MEDS: carvediloL 6.25 MG TAB PO SCH ×2 (06:18→17:02)
[2023-03-23] MEDS: INSULIN ASPART (NovoLOG) 100 UNIT/ML VIAL SQ SCH ×7 (06:19→20:39)
[2023-03-23 06:33] LABS: African American GFR (CKD) 58 (>60 ml/min/1.73 sqM); Anion Gap 3 mmol/L; Blood Urea Nitrogen 83 mg/dL (7-17); Calcium 8.5 mg/dL (8.4-10.2); Carbon Dioxide 27 mmol/L (22-30); Chloride 109 mmol/L (98-107); Glucose 127 mg/dL (74-99); Non-African American GFR(CKD) 51 (>60 ml/min/1.73 sqM); Sodium 139 mmol/L (137-145)
[2023-03-23 06:55] LABS: Potassium 5.5 mmol/L (3.5-5.1)
[2023-03-23] MEDS: IPRATROPIUM-ALBUTEROL 3 ML NEB INHALATION SCH ×4 (07:46→21:33)
[2023-03-23 08:36] LABS: Basophils % (A) 0 %; Eosinophils % (A) 0 %; HCT 30.5 % (34.0-46.0); HGB 9.6 gm/dL (11.4-16.0); Hypochromasia Moderate; Lymphocytes # (A) 0.4 k/uL (1.0-4.8); Lymphocytes % (A) 7 %; MCH 28.9 pg (25.0-35.0); MCHC 31.3 g/dL (31.0-37.0); MCV 92.2 fL (80.0-100.0); Mean Platelet Volume 8.4; Monocytes # (A) 0.3 k/uL (0-1.0); Monocytes % (A) 5 %; Neutrophils # (A) 5.3 k/uL (1.3-7.7); Neutrophils % (A) 87 %; Platelet Count 102 k/uL (150-450); RBC 3.31 m/uL (3.80-5.40); RDW 15.4 % (11.5-15.5); WBC 6.1 k/uL (3.8-10.6)
[2023-03-23] MEDS: [UNRECOGNIZED DRUG - OTHER] INHALATION SCH (08:53)
[2023-03-23] MEDS: FERROUS SULFATE 325 MG TAB PO SCH (08:59)
[2023-03-23] MEDS: allopurinoL 100 MG TAB PO SCH (08:59)
[2023-03-23] MEDS: ETODOLAC 300 MG CAPSULE PO SCH ×3 (09:00→20:40)
[2023-03-23] MEDS: SENNOSIDES 8.6 MG TAB PO SCH (09:00)
[2023-03-23] MEDS: ASPIRIN 81 MG PO SCH (09:00)
[2023-03-23] MEDS: CYANOCOBALAMIN 500 MCG TAB PO SCH (09:00)
[2023-03-23] MEDS: HYDROmorphone 0.5 MG/0.5 ML SYRINGE IVP PRN (09:42)
[2023-03-23 11:13] LABS: Glucose,Whole Blood 230 mg/dL (70-110)
--- NOTE | 2023-03-23 14:50 | P.PN ---
Subjective Progress Note Date: 03/23/23 Principal diagnosis: T1 AO Type B3 fracture Patient was seen at bedside this morning on 4S. Patient is complaining mostly of mid to lower back pain. Patient denies any radiation of pain down the leg. Patient says some of the medication has been helping control pain. Patient says she did get out of be yesterday and sat in chair. Patient denies any other issues at this time. Patient denies chest pain, fever, shortness breath, nausea, vomiting, change in vision. Objective - Vital Signs Vital signs: Vital Signs Temp 97.5 F L 03/23/23 06:51 Pulse 60 03/23/23 07:58 Resp 18 03/23/23 06:51 BP 107/69 03/23/23 06:51 Pulse Ox 97 03/23/23 06:51 FiO2 35 03/23/23 04:46 Intake & Output 03/22/23 03/23/23 03/23/23 18:59 06:59 18:59 Output Total 1270 Balance -1270 Output: Drainage 70 Back 70 Urine 1200 Other: Voiding Method Indwelling Catheter Indwelling Catheter # Voids 0 ABP, PAP, CO, CI - Last Documented Arterial Blood Pressure 134/50 - Exam Inspection: dressing present over spine. dressing changed. mana well aligned and intact. drain removed. Sensation: Equal, symmetric, bilaterally intact throughout the upper and lower extremities. Palpation: moderate TTP diffusely throughout the lumbar spine at midline and on the right and left. Moderate TTP at midline in lower thoracic spine. NTTP throu ghout rest of exam Range of motion: Patient does have good range of motion bilateral lower extremit ies on exam. There is referred pain to the low back during hip flexion and extension bilaterally as well as knee flexion bilaterally. Patient has full ROM throughout bilateral upper extremities on exam. Motor: 4-/5 in all major motor groups in bilateral lower extremities on exam. 4+/5 in all major motor groups in bilateral upper extremities Special tests: Negative Homans bilaterally. Negative clonus. Negative Elliott bilaterally Neurovascular: Radial pulses intact, 2+ bilaterally. DP pulses palpable bilaterally. Cap refill under 3 seconds in digits of upper extremities. - Labs CBC & Chem 7: 03/23/23 08:06 03/23/23 05:22 Labs: Abnormal Lab Results - Last 24 Hours (Table) 03/22/23 03/22/2324 Range/Units 11:49 17:30 20:33 RBC (3.80-5.40) m/uL Hgb (11.4-16.0) gm/dL Hct (34.0-46.0) % Plt Count (150-450) k/uL Lymphocytes # (1.0-4.8) k/uL Potassium (3.5-5.1) mmol/L Chloride (98-107) mmol/L BUN (7-17) mg/dL Creatinine (0.52-1.04) mg/dL Glucose (74-99) mg/dL POC Glucose (mg/dL) 197 H 235 H 149 H (70-110) mg/dL 03/23/23 03/23/23 03/23/23 Range/Units 05:22 05:27 08:06 RBC 3.31 L (3.80-5.40) m/uL Hgb 9.6 L (11.4-16.0) gm/dL Hct 30.5 L (34.0-46.0) % Plt Count 102 L (150-450) k/uL Lymphocytes # 0.4 L (1.0-4.8) k/uL Potassium 5.5 H (3.5-5.1) mmol/L Chloride 109 H (98-107) mmol/L BUN 83 H (7-17) mg/dL Creatinine 1.12 H (0.52-1.04) mg/dL Glucose 127 H (74-99) mg/dL POC Glucose (mg/dL) 145 H (70-110) mg/dL Assessment and Plan Assessment: 1. T11 AO type B3 fracture; Low back pain status post recent fall; history of A1tyiomc decompression fusion - Postop day 4 status post T9-L2 stabilization for T11 fracture Plan: 1. T11 AO type B3 fracture;Low back pain status post recent fall; history of [id number] decompression fusion - surgery performed , 03/19/2023. patient seen at bedside this morning. drain removed dressing changed. incision healing well. Appreciate medical management. Continue pain medications. We'll continue follow patient in hospital. Discontnue bill. Weightbearing as tolerated with walker and assistance as needed. From Orthopedic standpoint, patient stable for discharge. Discharge per medicine. Ortho will be available as needed. 2. Appreciate medical management 3. Pain management - norco; gabapentin 4. DVT prophylaxis - aspirin; mechanical 5. GI prophylaxis - senna; protonix 6. PT/OT - weightbearing as tolerated with walker and assistance 7. Encourage incentive spirometer use Time with Patient: Less than 30
[2023-03-23 16:47] LABS: Glucose,Whole Blood 247 mg/dL (70-110)
[2023-03-23 20:21] LABS: Glucose,Whole Blood 279 mg/dL (70-110)
[2023-03-23] MEDS: INSULIN DETEMIR (LEVEMIR) 100 UNIT/ML SYR SQ SCH (20:39)
[2023-03-23] MEDS: TOPIRAMATE 25 MG TAB PO SCH (20:40)
[2023-03-23] MEDS: MONTELUKAST 10 MG TAB PO SCH (20:41)
[2023-03-23] MEDS: ATORVASTATIN 20 MG TAB PO SCH (20:41)
[2023-03-23] MEDS: MAGNESIUM OXIDE 400 MG TAB PO SCH (20:41)
--- NOTE | 2023-03-23 22:40 | PN ---
PROGRESS NOTE SUBJECTIVE: She will be moved out of the ICU back in the surgical site. Has not had a bowel movement for about a week. Will be given lactulose, Reddy catheter. Oral intake is good. Pain is better. Medications reviewed. OBJECTIVE: VITAL SIGNS: Temp 97.8, pulse 75, respiratory rate 16 to 18, O2 on room air. HEENT: Normocephalic, atraumatic. Pupils equal, round, and reactive. LUNGS: Respiratory effort is better. HEART: S1, S2. ABDOMEN: Soft, nontender. PSYCH: Alert and oriented. NEUROLOGIC: Cranial nerves intact. Sodium 137, potassium 5.4, BUN is 75, creatinine 1.3. White count 8.3. ASSESSMENT: Fall sustaining a traumatic T11 fracture. Postop day 2 following T9-L2 stabilization, acute hypoxemic respiratory failure secondary to COPD, CHF systolic and diastolic, nonischemic cardiomyopathy, AICD. She has history of COPD, asthma, chronic kidney disease stage 3. She has hypertension, dyslipidemia, chronic thrombocytopenia, anemia of chronic disease, acute blood loss anemia, chronic bronchial asthma, obstructive sleep apnea, history of COVID-19, history of C2-T2 decompression, constipation. She needs citrate. Continue current treatments. Breathing treatments, etc. PROGNOSIS: Guarded. Ambulate as tolerated PT OT. Please see further orders. MMODL / IJN: [id number] /
[2023-03-24] MEDS: methylPREDNISolone SOD SUCCI 125 MG/2 ML VIAL IV SCH ×2 (00:14→09:38)
[2023-03-24 05:50] LABS: Glucose,Whole Blood 132 mg/dL (70-110)
[2023-03-24] MEDS: INSULIN ASPART (NovoLOG) 100 UNIT/ML VIAL SQ SCH ×4 (05:51→12:28)
[2023-03-24] MEDS: carvediloL 6.25 MG TAB PO SCH (05:54)
[2023-03-24] MEDS: PANTOPRAZOLE 40 MG TABLET PO SCH (05:54)
[2023-03-24] MEDS: HYDROcodone/APAP 10-325MG 1 EACH TAB PO PRN ×2 (05:56→11:01)
[2023-03-24 06:44] LABS: ALT 23 U/L (4-34); AST 29 U/L (14-36); African American GFR (CKD) 47 (>60 ml/min/1.73 sqM); Albumin 2.9 g/dL (3.5-5.0); Albumin/Globulin Ratio 1.3; Alkaline Phosphatase 127 U/L (38-126); Anion Gap 2 mmol/L; Blood Urea Nitrogen 89 mg/dL (7-17); Calcium 8.7 mg/dL (8.4-10.2); Carbon Dioxide 28 mmol/L (22-30); Chloride 108 mmol/L (98-107); Globulin 2.2 g/dL; Glucose 129 mg/dL (74-99); Non-African American GFR(CKD) 41 (>60 ml/min/1.73 sqM); Potassium 5.1 mmol/L (3.5-5.1); Sodium 138 mmol/L (137-145); Total Bilirubin 0.6 mg/dL (0.2-1.3); Total Protein 5.1 g/dL (6.3-8.2)
[2023-03-24 07:49] VITALS: RESP 18
[2023-03-24 08:23] LABS: Basophils % (A) 0 %; Eosinophils % (A) 0 %; HCT 28.8 % (34.0-46.0); HGB 9.3 gm/dL (11.4-16.0); Hypochromasia Moderate; Lymphocytes # (A) 0.4 k/uL (1.0-4.8); Lymphocytes % (A) 6 %; MCH 29.6 pg (25.0-35.0); MCHC 32.2 g/dL (31.0-37.0); MCV 91.9 fL (80.0-100.0); Mean Platelet Volume 9.9; Monocytes # (A) 0.2 k/uL (0-1.0); Monocytes % (A) 3 %; Neutrophils # (A) 5.9 k/uL (1.3-7.7); Neutrophils % (A) 91 %; Platelet Count 118 k/uL (150-450); RBC 3.14 m/uL (3.80-5.40); RDW 15.4 % (11.5-15.5); WBC 6.5 k/uL (3.8-10.6)
[2023-03-24] MEDS: IPRATROPIUM-ALBUTEROL 3 ML NEB INHALATION SCH ×2 (09:19→11:55)
[2023-03-24] MEDS: allopurinoL 100 MG TAB PO SCH (09:37)
[2023-03-24] MEDS: FERROUS SULFATE 325 MG TAB PO SCH (09:37)
[2023-03-24] MEDS: SENNOSIDES 8.6 MG TAB PO SCH (09:37)
[2023-03-24] MEDS: ASPIRIN 81 MG PO SCH (09:37)
[2023-03-24] MEDS: CYANOCOBALAMIN 500 MCG TAB PO SCH (09:37)
[2023-03-24] MEDS: ETODOLAC 300 MG CAPSULE PO SCH (09:37)
--- NOTE | 2023-03-24 09:43 | P.OP ---
Date of Procedure: 03/19/23 Preoperative Diagnosis: 1. T11 AO type B3 fracture with displacement s/p ffs in hospital parking lot 2. Low back pain due to #1 3. LE paresthesias secondary to fracture and epidural hematoma 4. LE weakness 5. Complex medical patient with multiple CMC Postoperative Diagnosis: 1. T11 AO type B3 fracture with displacement s/p ffs in hospital parking lot 2. Low back pain due to #1 3. LE paresthesias secondary to fracture and epidural hematoma 4. LE weakness 5. Complex medical patient with multiple CMC Procedure(s) Performed: 1. OPEN TREATMENT T11 COMPLEX FRACTURE 2. T9-L2 POSTEROLATERAL FUSION 3. T9-L2 INSTRUMENTATION 4. T10-L2 DECOMPRESSIVE BILATERAL LAMINECTOMY, FACETECTOMY AND FORAMINOTOMY WITH HEMATOMA EVACUATION 5. USE OF biNu NAVIGATION FOR SCREW PLACEMENT USE OF [facility] CPTMOD 22 THIS CASE TOOK 80% LONGER THAN EXPECTED DUE TO CORMORBID CONDITIONS, EXTENT OF LUMBAR DISEASE, FRACTURE TYPE, AND HIGH TECHNICALITY OF THE CASE. Implants: -[employer] S[employer]W [employer] -MAGNATOS, CONTOUR, ALLOCELL, AUTOGRAFT Anesthesia: GETA Surgeon: Jomar Meeks Catheter Finisher And Inspector #1: Espinoza Laguerre (WAS PRESENT AND ASSISTED WITH ALL ASPECTS OF THE CASE FROM POSITION TO CLOSURE. ) Estimated Blood Loss (ml): 350 IV fluids (ml): 1,200 Urine output (ml): 520 Pathology: none sent Condition: stable Disposition: ICU Indications for Procedure: Spine Surgery Clinical and Risk Review MALCOLM HYMAN is a 67 YO FEMALE presenting for evaluation of SEVERE MID AND LOW BACK PAIN AFTER FALL IN PARKING LOT. It was my pleasure to have seen and examined MALCOLM. In our visit today we have had a chance to go over subjective complaints, physical examination findings and treatments including the natural course history without intervention and various interventional options. The patients imaging demonstrates UNSTABLE AO B3 TYPE FRACTURE OF T11 IN AN ANKYLOSED SPINE On physical exam, MALCOLM demonstrates SEVERE LOW AND MID BACK PAIN WITH ANY MOVEMENT, PARESTHESIAS IN LE. WEAKNESS 4- AND 3+ IN LE B/L. DECREASED DTR +1. NO PATHOLOGICAL REFLEXES. URINARY RETENTION. NO PERINEUM PARESTHESIAS. NORMAL RECTAL TONE. I have explained to the patient that as their condition progresses it will cause further neurological deficits and eventual paralysis. Based on the patients imaging, physical exam, and the rapid progression and disabling nature of their symptoms, at this time I recommend surgery in the form or a: OPEN TREATMENT OF T11 FRACTURE WITH STABILIZATION AND FUSION I discussed the risk and benefits of this procedure at length with MALCOLM. The patient [significant other] agreed to considered pursuing the procedure abovementioned. Prior to surgery, she should follow up with her PCP (Cardio, ID, IM etc) for clearance. Questions were invited and answered, and the patient wishes to proceed as outlined below. Currently, I am recommendin. OPEN TREATMENT T11 FRACTURE WITH STABILIZATION AND FUSION 2. Follow up with PCP for surgical clearance 3. Review of surgical risks and benefits as well as an educational packet on the proposed surgical procedure. Risks: All surgical procedures come with inherent risks, including those related to positioning, anesthesia, intraoperative findings, and postoperative complications. It is important to understand that surgery does not come with any guarantee of a successful outcome as complications and adverse events are always possible. The patient was given a handout in office today discussing the surgical procedure and risks associated with the intervention, both of which were discussed with the patient. These risks include but are not limited to the following: Experiencing same, different or even worse symptoms in back, neck, arms, or legs compared to before surgery. Requiring further surgery or other forms of treatment presently or at some time in the future at same or other levels of the intended spine surgery. On an extreme but fortunately relatively rare basis severe complication such as blindness, stroke, heart attack, temporary and/or permanent nerve injury, paralysis, coma, or may occur, sometimes without known explanation. Surgical complications may include but are not limited to risk of infection, fluid accumulation in the surgical dissection site, including a seroma or hematoma, that requires additional surgery, wound drainage, bleeding, new numbness or weakness, vision changes/loss, spinal fluid leakage, non-healing and/or infected incision, headaches, difficulty or inability to swallow, hoarseness, hemopneumothorax, pneumothorax, impotence, retrograde ejaculation, vaginal dryness; injury to nerves, spinal cord, blood vessels, lymphatics or other vital organs (i.e., bowel injury, injury to the great vessels); heterotopic bone formation; complications related to the hardware such as screws, rods, cages including misplaced hardware, device failure, instrumentation at the wrong spine level, hardware fracture/breakage, or hardware loosening; vertebral failure of the spinal column above or below the newly placed hardware; retained surgical instrumentations or devices and the need for further surgery. Medical risks of the planned spine surgery include but are not limited to generalized Infections to the whole body or local areas outside of the surgical site (sepsis), heart attack, bleeding, anaphylaxis, meningitis, seizure, epilepsy, hearing loss, burn parks, laceration of the head or other areas of the body, bruising, hypersensitivity of the skin, bladder over distension; allergic reaction; shoulder injury related to positioning; fat, blood and air clots to other areas of the body like heart, lungs, brain; failure of internal organs such as lungs, kidneys, liver and excessive bleeding. If blood transfusions are necessary, note that transfusions may cause intolerance reactions such as anaphylaxis or other complex reactions. Despite best efforts, the results of spine surgery might not heal in terms of bone, soft tissues such as skin, fascia, ligaments, and joints. Additionally, in order to achieve best possible results, spine surgery may be carried out beyond the initially planned levels and involve decompression, fusion including insertion of hardware at levels other than the original intended area of surgical interest change some portions of the procedure in order to ensure the best possible outcomes. With spine surgery and spinal fusion, there are different off label uses of instrumentation (devices, implants and hardware) as well as biological substances (bone morphogenic proteins, demineralized bone matrix) as well as using extra bone from allograft sources (i.e. cadaver bone) or autograft (iliac crest bone, ribs, or the spine itself). The patient has been given information about these practices and their inherent risks and benefits. The patient has had a chance to review all the listed information, has been given print outs detailing this information, and has had all his/her questions answered to their satisfaction. It was my pleasure to have seen and examined MALCOLM. In our visit today we have had a chance to go over my understanding of our patient's current condition, the natural course history without intervention and various interventional options. Questions were invited and answered, and the patient wishes to proceed as outlined above. I have seen and examined the patient for 25 minutes and we have spent more than 50% of the time in repeat and detailed counseling about the patient's condition, its natural course history with out and as much as can be predicted with surgery and re-review of various surgical treatment options. In conclusion, MALCOLM and [his/her spouse/partner] requested we proceed with the above suggested surgery and are willing to accept risks and limitations of the suggested surgery as nature of the disease process and our best attempts at treatment for the condition. Thank you again for allowing us to be part of your patient's care. Please don't hesitate to contact me if you have any further questions. Signed and authenticated by: Jomar Cristobal [facility] [address], [address] [address] Description of Procedure: T9-L2 REVISION Decompression and fusion, STABILIZATION AND OPEN TREATMENT FRACTURE (JESE) The patient was seen and examined in the preoperative area. All preoperative protocols were followed. Informed consent was obtained, risks and benefits of the procedure were discussed at length. Risks including bleeding infection damage to the surrounding tissue and risk of re-operation were discussed with the patient. Risk of anesthesia up to and including was discussed with the patient. These are outlined in the risk review. They were willing to accept these risks and all the risks of surgery. The patient was given a weight-based dose of antibiotics in the form of 3 g Ancef. The patient was seen and evaluated by the anesthesia team who deemed them fit for surgery. The site was marked, the patient was willing to proceed with the procedure. The patient was transferred to the operative suite by the Department of anesthesia. They were then drifted off to sleep by the department anesthesia and GETA was performed. The patient tolerated this well. Reddy catheter was placed by nursing staff, a-traumatically. Once confirmation of lines and ventilation the patient was transferred to a prone [facility] spine table very carefully. The head was secured and stable. Xray confirmed alignment. All bony prominences including wrists, elbows, axilla, chest, hips, and thighs, and feet were padded very well. Special attention was paid to the genitalia, and these were padded accordingly. SCDs were placed on bilateral lower extremities and were connected. Arms were well padded and placed at 90/90 up and out and well padded. Safety strap and tape placed on the patient. Once in position, again we confirmed good ventilation capabilities and that lines were running appropriately. The patients lumbosacral pelvic was then exposed. Hair was r emoved for incision. 1010s were placed outlining the incision site. Standard alcohol was used to clean the incision site and allowed to dry. C-arm was used to bio-lamar the patient and confirm level for incision which was marked with a skin marker. Operative briefing was performed with all teams and everyone in agreement to proceed. The patient was then prepped and draped in a normal sterile fashion. Timeout was then performed, and all parties agreed with the procedure to be performed. Midline skin incision was then made over the previously bookmarked area and dissection taken down to the lumbosacral fascia which was identified and cleaned with a chamorro. Once midline was identified, fasciotomy was made over the SP of [id number]. Subperiosteal dissection was then taken down over the lamina and facet joints and TPs were exposed and trough made posterolateral. This was done T9-L3 where hardware was identified at L2 and L3. Once this was done, crosslink was removed from between L2-3 for later on. Then a tracker was placed on the SP for [employer] navigation. 3D Zhiem spin was then registered and confirmed accurate. Then screws were placed using navigated dee, awl tap and screw dr cruz from T9-L1. Dee was used to make facilities flight check pilot hole followed by awl tap. Feeler confirmed in the pedicle. Then navigated screw driver guard placed measured screw in optimal position. Once this was completed, AP and lateral images confirmed good placement of screws. Screws were then tested and tested safe. We then proceeded to decompression. Bilateral laminectomy, complete facetectomy and foraminotomies were don from T10-L2 for complete decompression of the cord in this area. There was overt insability noted at the fracture site before this so a temp gonzales was placed spanning this level for stability. Once decompression was done, there was large hematoma noted epidural that was released from the area. We then irrigated 3L NSS through the wound bed. Meticulous hemostasis achieved as well. We then decorticated posteriolateral and remaning facet joints. Attention was then drawn to gonzales placement and further reduction. Rods were selected, measured, cut and bent to appropriate lordosis. They were then secured into gonzales to gonzales connecters placed between L2-3. Sequential reduction then done into each screw and set screw placed. Set screws were then final tightened and lateral image showed good alignment reduction with stable fracture now. Once rods were secured, cross links were selected and placed and final tightened. The wound was then irrigated with 3L Ancef irrigation, 3L gentamicin irrigation and 3L NSS. Surgicel was then placed on the dura, which was inspected and had no injury. Then, in the posterolateral gutter was placed, MagnatOs, Autograft and allograft. This was impacted into position and surgical placed over it. 2g Vanco powder was then placed deep in the wound. Two deep, subfascial drains were placed and secured with a stitch. We then proceeded with layered closure. #1 PDS placed in the deep fascia followed by a running unidirectional 0 stratafix. 0 Vicryl placed in the deep subq, 2-0 placed in the superficial subq and mana placed in the skin. The wound edges approximated very well. The wound was then cleaned with ETOH and dressed with optifoam dressing, drain sponges and tegaderms. Drains sewed into position. IONM confirmed no changes. The patient was then transferred off the [facility] spine table to their hospital bed a-traumatically. Drains continued to hold suction. The patient was then extubated and transferred to the ICU in stable condition having tolerated the procedure with no complications.
--- NOTE | 2023-03-24 10:34 | P.PN ---
Subjective Progress Note Date: 03/24/23 Principal diagnosis: T1 AO Type B3 fracture Patient was seen at bedside this morning on 4S. Patient is complaining mostly of mid to lower back pain. Patient denies any radiation of pain down the leg. Patient says some of the medication has been helping control pain. Patient says she did get out of be yesterday and sat in chair. Patient denies any other issues at this time. Patient looking forward to going to rehab today. Patient denies chest pain, fever, shortness breath, nausea, vomiting, change in vision. Objective - Vital Signs Vital signs: Vital Signs Temp 97.5 F L 03/24/23 06:55 Pulse 56 L 03/24/23 09:30 Resp 18 03/24/23 06:55 BP 96/60 03/24/23 06:55 Pulse Ox 97 03/24/23 06:55 FiO2 35 03/24/23 04:43 Intake & Output 03/23/23 03/24/23 03/24/23 18:59 06:59 18:59 Output Total 650 Balance -650 Output: Urine 650 Uretheral (Reddy) 550 Other: Voiding Method Indwelling Catheter Bedside Commode Bedpan # Voids 1 2 # Bowel Movements 1 ABP, PAP, CO, CI - Last Documented Arterial Blood Pressure 134/50 - Exam Inspection: dressing present over spine. dressing changed. mana well aligned and intact. drain removed. Sensation: Equal, symmetric, bilaterally intact throughout the upper and lower extremities. Palpation: moderate TTP diffusely throughout the lumbar spine at midline and on the right and left. Moderate TTP at midline in lower thoracic spine. NTTP throughout rest of exam Range of motion: Patient does have good range of motion bilateral lower extremities on exam. There is referred pain to the low back during hip flexion and extension bilaterally as well as knee flexion bilaterally. Patient has full ROM throughout bilateral upper extremities on exam. Motor: 4-/5 in all major motor groups in bilateral lower extremities on exam. 4+/5 in all major motor groups in bilateral upper extremities Special tests: Negative Homans bilaterally. Negative clonus. Negative Elliott bilaterally Neurovascular: Radial pulses intact, 2+ bilaterally. DP pulses palpable bilaterally. Cap refill under 3 seconds in digits of upper extremities. - Labs CBC & Chem 7: 03/24/23 08:08 03/24/23 06:17 Labs: Abnormal Lab Results - Last 24 Hours (Table) 03/23/23 03/23/23 03/23/23 Range/Units 11:12 16:45 20:15 RBC (3.80-5.40) m/uL Hgb (11.4-16.0) gm/dL Hct (34.0-46.0) % Plt Count (150-450) k/uL Lymphocytes # (1.0-4.8) k/uL Chloride (98-107) mmol/L BUN (7-17) mg/dL Creatinine (0.52-1.04) mg/dL Glucose (74-99) mg/dL POC Glucose (mg/dL) 230 H 247 H 279 H (70-110) mg/dL Alkaline Phosphatase (38-126) U/L Total Protein (6.3-8.2) g/dL Albumin (3.5-5.0) g/dL 03/24/23 03/24/23 03/24/23 Range/Units 05:48 06:17 08:08 RBC 3.14 L (3.80-5.40) m/uL Hgb 9.3 L (11.4-16.0) gm/dL Hct 28.8 L (34.0-46.0) % Plt Count 118 L (150-450) k/uL Lymphocytes # 0.4 L (1.0-4.8) k/uL Chloride 108 H (98-107) mmol/L BUN 89 H (7-17) mg/dL Creatinine 1.33 H (0.52-1.04) mg/dL Glucose 129 H (74-99) mg/dL POC Glucose (mg/dL) 132 H (70-110) mg/dL Alkaline Phosphatase 127 H (38-126) U/L Total Protein 5.1 L (6.3-8.2) g/dL Albumin 2.9 L (3.5-5.0) g/dL Assessment and Plan Assessment: 1. T11 AO type B3 fracture; Low back pain status post recent fall; history of [id number] decompression fusion - Postop day 5 status post T9-L2 stabilization for T11 fracture Plan: 1. T11 AO type B3 fracture;Low back pain status post recent fall; history of [id number] decompression fusion - surgery performed , 03/19/2023. patient seen at bedside this morning. drain removed dressing changed. incision healing well. Appreciate medical management. Continue pain medications. Weightbearing as tolerated with walker and assistance as needed. From Orthopedic standpoint, patient stable for discharge. Discharge per medicine. Ortho will be signign off at this time. Please do not hesitate to contact us for any further questions. Follow up with Dr. Meeks in 2 weeks in office. 2. Appreciate medical management 3. Pain management - norco; gabapentin 4. DVT prophylaxis - aspirin; mechanical 5. GI prophylaxis - senna; protonix 6. PT/OT - weightbearing as tolerated with walker and assistance 7. Encourage incentive spirometer use Time with Patient: Less than 30
[2023-03-24 11:10] LABS: Glucose,Whole Blood 233 mg/dL (70-110)
--- NOTE | 2023-03-24 14:03 | DS ---
DISCHARGE SUMMARY DISCHARGE MEDICATIONS: 1. Gabapentin 300 q.i.d. 2. Lodine 300 t.i.d. 3. NovoLog a.c. h.s. 4. Protonix 40 b.i.d. 5. [place] 10/325 every 6 p.r.n. 6. Duricef 500 mg q.12 hours for 5 days. 7. Flexeril 10 mg t.i.d. 8. Senna 1 tab daily. 9. DuoNeb q.i.d. around the clock q.i.d., do not stop these. 10.Senokot 8.6 mg daily. 11.Senokot-S 2 tabs daily p.r.n. 12.Singulair 10 mg daily. 13.Lipitor 20 mg daily. 14.Topamax 15 mg q.h.s. 15.Lipitor 20 mg q.h.s. 16.10 units subcu t.i.d. with meals of Humalog QuickPen 10 units plus scale. 17.Mag oxide 500 mg at night. 18.Zestril 2.5 mg daily. 19.Aspirin 81 mg daily. 20.Calcitriol 0.25 mcg p.o. on Thursday and . 21.Allopurinol 100 mg daily. 22.ProAmatine 10 mg p.o. t.i.d. 23.Yupelri 175 mcg per 3 mL inhalation q.a.m. 24.Lantus SoloStar 30 units q.h.s. 25.Dupixent 300 mg subcu every 14 days. 26.Coreg 6.25 b.i.d. 27.As mentioned, gabapentin 300 mg t.i.d. 28.Ferrous sulfate 325 mg daily. She wears a BiPAP with 5 to 12 settings at night when she sleeps. She has to wear this at night and possibly use oxygen during the day when she is napping, 2 L, do not stop this. Follow up with at the [facility] who is covering for Dr. Snell, myself. DIAGNOSES: Intractable back pain, she has a T11 vertebral fracture, COPD, asthma, sleep apnea, she is status post surgery, Dr. Meeks after having a fall at home. She had a T11 AO type B3 fracture, low back pain secondary to fall, history of L2 pelvis decompression fusion, postop day 3, now day 4 with T9 and L2 stabilization for a T11 fracture, PT OT. Take [place], gabapentin, muscle relaxers for pain relief. Follow up with Dr. Vishla Snell when she gets out of rehab under Dr. diet will be diabetic diet as tolerated. Maintain to keep on her breathing treatments for her BiPAP machine and oxygen when she all this. We will see her when she gets out, PT OT rehab at the [facility]. CONDITION: Stable. PROGNOSIS: Guarded. MMODL / IJN: [id number] /
[2023-03-24 14:12] VITALS: BP 100/63; PULSE 75; TEMP 97.7
--- NOTE | 2023-03-26 09:56 | CDI ---
Documentation Clarification Form Date: 03/26/2023 09:44:15 AM From: Kenia Mejia RN, CCDS Phone: [phone] Admit Date: 03/18/2023 08:56:00 AM Patient Name: Yani Andino Visit Number: [id number] Discharge Date: 03/24/2023 04:29:00 PM ATTENTION: The Clinical Documentation Specialists (CDI) and [facility] Coding Staff appreciate your assistance in clarifying documentation. Please respond to the clarification below the line at the bottom and electronically sign. The CDI & [facility] Coding staff will review the response and follow-up if needed. Please note: Queries are made part of the Legal Health Record. If you have any questions, please contact the author of this message via ITS. Dr. Jomar Meeks Postoperative hypotension, which was treated with 1 L of crystalloid and 500 albumin is documented in pulmonary progress notes on 03/20 and patient had Open Treatment T11 Complex Fracture. T9-L2 Posterolateral Fusion on 03/19/23.Additional clarification is requested regarding the relationship, if any, that exists between the diagnosis and the procedure. 03/20 pulmonary progress notes: She did have some postoperative hypotension, which was treated with 1 L of crystalloid and 500 albumin. Patient was briefly on John-Synephrine intraoperatively. Blood pressure is borderline hypotensive. 03/20 VS (01:00) 87/58 60 16; Arterial blood pressure 105/45 03/20 VS (01:30 96/61 60 16; Arterial blood pressure 135/59 03/20 VS (02:40) ; Arterial blood pressure 133/61 Patients Admitting Diagnosis: T11 AO type B3 fracture with displacement. LE paresthesias secondary to fracture and epidural hematoma Post-Operative Diagnosis: Same Procedure performed: Open Treatment T11 Complex Fracture. T9-L2 Posterolateral Fusion T9-L2 Instrumentation T10 -L2 Decompressive Bilateral Laminectomy, Facetectomy and Foraminotomy with hematoma evacuation. Use of [employer] navigation for screw placement Osteoarthritis History/Risk Factors: Asthma, Diabetes Mellitus, GERD/Reflux, Hyperlipidemia, Musculoskeletal Disorder, Orthostatic hypotension Clinical Indicators: 67-year-old female presented chief complaint of low back pain. T11 AO type B3 fracture with displacement s/p fall in hospital parking lot. Treatment: ICU/Telemetry Monitoring Levophed 4 MG ip per orders 03/20-03/20 Monitor VS per ICU protocol What relationship, if any, exists between the diagnosis of postoperative hypotension and the procedure: [ ] Postoperative hypotension is a complication of surgical procedure [ ] Postoperative hypotension is an expected outcome of the surgical procedure [ ] Postoperative hypotension is related to patients co-morbid condition(s) of [insert co-morbid dxs] & not a complication of the procedure [ ] Postoperative hypotension has been ruled out [ ] Other please specify ____ [ ] Unable to determine (Template Last Revised: April 2020) Postoperative hypotension is more likely related to patients co-morbid condition(s) of Asthma, Diabetes Mellitus, GERD/Reflux, Hyperlipidemia, Musculoskeletal Disorder, Orthostatic hypotension & not necessarily a complication of the procedure. ANGI
== END 2023-03-24 16:29 | DRG 453 ==
LOC: EC 23:12 → 6NMEDSUR 03-17 05:07 → OBSVTOIN 03-18 08:56 → 2SICU 03-19 17:05 → 4SSUR 03-21 12:39
PROVIDERS: ADMIT Family Medicine; ATTEND Family Medicine
PROC: 0RG7071 Fusion of 2 to 7 Thoracic Vertebral Joints with Autologous Tissue Substitute, Posterior Approach, Posterior Column, Open Approach (ICD-10-PCS; 2023-03-19)
PROC: 0RGA0AJ Fusion of Thoracolumbar Vertebral Joint with Interbody Fusion Device, Posterior Approach, Anterior Column, Open Approach (ICD-10-PCS; 2023-03-19)
PROC: 0RGA071 Fusion of Thoracolumbar Vertebral Joint with Autologous Tissue Substitute, Posterior Approach, Posterior Column, Open Approach (ICD-10-PCS; 2023-03-19)
PROC: 0SG00AJ Fusion of Lumbar Vertebral Joint with Interbody Fusion Device, Posterior Approach, Anterior Column, Open Approach (ICD-10-PCS; 2023-03-19)
PROC: 0SG0071 Fusion of Lumbar Vertebral Joint with Autologous Tissue Substitute, Posterior Approach, Posterior Column, Open Approach (ICD-10-PCS; 2023-03-19)
PROC: 0RC Upper Joints, Extirpation (ICD-10-PCS; 2023-03-19)
PROC: 00NX0ZZ Release Thoracic Spinal Cord, Open Approach (ICD-10-PCS; 2023-03-19)
PROC: 8E0WXBZ Computer Assisted Procedure of Trunk Region (ICD-10-PCS; 2023-03-19)
PROC: 30233J1 Transfusion of Nonautologous Serum Albumin into Peripheral Vein, Percutaneous Approach (ICD-10-PCS; 2023-03-19)
PROC: 3E033XZ Introduction of Vasopressor into Peripheral Vein, Percutaneous Approach (ICD-10-PCS; 2023-03-19)
PROC: 5A1945Z Respiratory Ventilation, 24-96 Consecutive Hours (ICD-10-PCS; 2023-03-19)
PROC: 0RG70AJ Fusion of 2 to 7 Thoracic Vertebral Joints with Interbody Fusion Device, Posterior Approach, Anterior Column, Open Approach (ICD-10-PCS; principal; 2023-03-19 18:30)
DX: S22.088A Other fracture of T11-T12 vertebra, initial encounter for closed fracture (principal); J96.01 Acute respiratory failure with hypoxia; S24.154A Other incomplete lesion at T11-T12 level of thoracic spinal cord, initial encounter; M31.19 Other thrombotic microangiopathy; I13.0 Hypertensive heart and chronic kidney disease with heart failure and stage 1 through stage 4 chronic kidney disease, or unspecified chronic kidney disease; I42.8 Other cardiomyopathies; D62 Acute posthemorrhagic anemia; I50.42 Chronic combined systolic (congestive) and diastolic (congestive) heart failure; I95.81 Postprocedural hypotension; D63.8 Anemia in other chronic diseases classified elsewhere; M41.84 Other forms of scoliosis, thoracic region; E11.22 Type 2 diabetes mellitus with diabetic chronic kidney disease; E11.42 Type 2 diabetes mellitus with diabetic polyneuropathy; E03.9 Hypothyroidism, unspecified; E11.65 Type 2 diabetes mellitus with hyperglycemia; E66.01 Morbid (severe) obesity due to excess calories; N18.30 Chronic kidney disease, stage 3 unspecified; G47.33 Obstructive sleep apnea (adult) (pediatric); E78.5 Hyperlipidemia, unspecified; K59.09 Other constipation; G89.29 Other chronic pain; J44.89 Other specified chronic obstructive pulmonary disease; I95.1 Orthostatic hypotension; K21.9 Gastro-esophageal reflux disease without esophagitis; M10.9 Gout, unspecified; I25.10 Atherosclerotic heart disease of native coronary artery without angina pectoris; W01.0XXA Fall on same level from slipping, tripping and stumbling without subsequent striking against object, initial encounter; Y92.481 Parking lot as the place of occurrence of the external cause; Z96.653 Presence of artificial knee joint, bilateral; Z68.34 Body mass index [BMI] 34.0-34.9, adult; Z79.4 Long term (current) use of insulin; Z79.899 Other long term (current) drug therapy; Z79.82 Long term (current) use of aspirin; Z79.1 Long term (current) use of non-steroidal anti-inflammatories (NSAID); Z86.16 Personal history of COVID-19; Z95.810 Presence of automatic (implantable) cardiac defibrillator; Z87.01 Personal history of pneumonia (recurrent); Z98.1 Arthrodesis status
CPT/HCPCS: 36415; 71045; 72100; 72128; 72131; 80048; 80053; 82805; 83735; 84132; 85025; 85027; 86850; 86891; 86900; 86901; 93306; 94002; 94003; 94640; 94660; 96372; 96374; 96376; 99285

== ENCOUNTER 2023-04-23 10:44 | Inpatient (IN) | payer MEDICARE, OTHER ==
[2023-04-23] MEDS ORDERED: ONDANSETRON 4 MG/2 ML VIAL IVP PRN (12:15)
[2023-04-23] MEDS ORDERED: NALOXONE 0.4 MG/ML 1 ML VIAL IV PRN (12:15)
[2023-04-23] MEDS ORDERED: HYDROcodone/APAP 5-325MG 1 EACH TAB PO PRN (12:15)
--- NOTE | 2023-04-23 12:15 | ED ---
General Adult HPI - General Chief complaint: Recheck/Abnormal Lab/Rx Stated complaint: Referred by doctor Time Seen by Provider: 04/23/23 12:10 Source: patient, RN notes reviewed Mode of arrival: wheelchair Limitations: no limitations - History of Present Illness Initial comments: 67-year-old female presents emergency department chief complaint of needing admission for back infection. Patient states she had surgery by Dr. Meeks last month and states that she just left his office and sent over here for admission. She states she is scheduled for surgery tomorrow she states that there is some irritation or possible infection around her incision site. She does admit that she has pain but states she has not had a pain pill. Patient denies any other new symptoms denies fevers or chills. - Related Data Home Medications Medication Instructions Recorded Confirmed Montelukast [Singulair] 10 mg PO HS 11/02/18 03/17/23 Atorvastatin [Lipitor] 20 mg PO HS 09/05/19 03/17/23 Topiramate [Topamax] 50 mg PO HS 09/05/19 03/17/23 Insulin Lispro [humaLOG Kwikpen] 10 unit SQ TID-W/MEALS 02/09/20 03/17/23 Magnesium Oxide [Shaikh] 500 mg PO HS 02/09/20 03/17/23 Cyanocobalamin (Vitamin B-12) 1,000 mcg PO DAILY 06/09/22 03/17/23 [Vitamin B-12] Midodrine HCl [ProAmatine] 10 mg PO TID PRN 06/09/22 03/17/23 allopurinoL 100 mg PO DAILY 06/09/22 03/17/23 Insulin Glargine,Hum.rec.anlog 30 units SQ HS 01/07/23 03/17/23 [Lantus Solostar Pen] Yuperli 175mcg/3ml 175 mcg INHALATION RT-DAILY 01/07/23 03/17/23 lisinopriL [Zestril] 2.5 mg PO DAILY 01/07/23 03/17/23 Aspirin EC [Ecotrin Low Dose] 81 mg PO DAILY 03/17/23 03/17/23 Ferrous Sulfate [Iron (65 MG 325 mg PO DAILY 03/17/23 03/17/23 Elemental)] Gabapentin 300 mg PO QID PRN 03/17/23 03/17/23 calcitrioL 0.25 mcg PO SUTH 03/17/23 03/17/23 carvediloL 6.25 mg PO BID-W/MEALS 03/17/23 03/17/23 Previous Rx's Medication Instructions Recorded Cyclobenzaprine [Flexeril] 5 mg PO TID #21 tablet 03/23/23 Etodolac [Lodine] 300 mg PO TID cap 03/23/23 Gabapentin 300 mg PO QID #24 cap 03/23/23 HYDROcodone/APAP 10-325MG [[place] 1 tab PO Q6HR PRN #24 tab 03/23/23 10-325] INSULIN ASPART (NovoLOG) [NovoLOG 0 unit SQ ACHS each 03/23/23 (formulary)] Ipratropium-Albuterol Nebulize 3 ml INHALATION RT-QID 30 Days 03/23/23 [Duoneb 0.5 mg-3 mg/3 ml Soln] #120 each Pantoprazole [Protonix] 40 mg PO AC-BID tab 03/23/23 Sennosides [Senokot] 8.6 mg PO DAILY tab 03/23/23 Sennosides-Docusate Sodium 2 each PO DAILY PRN tab 03/23/23 [Senokot-S] Sennosides/Docusate Sodium [Senna 1 each PO DAILY #20 capsule 03/23/23 Plus 8.6-50 mg Softgel] cefaDROXiL [Duricef] 500 mg PO Q12HR 5 Days #10 cap 03/23/23 Allergies Allergy/AdvReac Type Severity Reaction Status Date / Time No Known Allergies Allergy Verified 03/16/23 23:47 Review of Systems ROS Statement: Those systems with pertinent positive or pertinent negative responses have been documented in the HPI. ROS Other: All systems not noted in ROS Statement are negative. Past Medical History Past Medical History: Asthma, Diabetes Mellitus, GERD/Reflux, Hyperlipidemia, Musculoskeletal Disorder, Osteoarthritis (OA), Pneumonia, Renal Disease, Sleep Apnea/CPAP/BIPAP, Vascular Disorder Additional Past Medical History / Comment(s): neuropathy bilateral hands/legs/feet, CKD stage III, hx kidney stones, anemia, UTI/septic due to lodged kidney stone, CARLOS with bipap, bronchitis, orthostatic hypotension with near syncope, vertigo, chronic low back pain/DDD, scoliosis, bilateral carpal tunnel syndrome, bilateral varicosities, migraines, SEE DR ALFORD H&P, gout, hx anemia(from nicked vein in left kidney after surgery for kidney stone), "embolism in my chest" History of Any Multi-Drug Resistant Organisms: None Reported Past Surgical History: AICD, Appendectomy, Back Surgery, Cardiac Ablation, Cesa rean Section, Cholecystectomy, Heart Catheterization, Hysterectomy, Joint Replacement, Orthopedic Surgery, Pacemaker Additional Past Surgical History / Comment(s): Rt knee arthroscopy, john total knee arthroplasty, pain clinic procedures, D&C, colonoscopy, bilateral leg varicose vein surgery, lithotripsies, surgical removal of stones, Myelogram([place]) 2018, Lumbar fusion L3-4, lumbar puncture for headaches 2019 (had spinal headache post), laminectomy, bakers cyst removed from rt knee, john cataracts, 02/12/21 back surgery with complications, cervical fusion Dec 08 Past Anesthesia/Blood Transfusion Reactions: No Reported Reaction Additional Past Anesthesia/Blood Transfusion Reaction / Comment(s): Pt has received blood without reaction. Type of Cardiac Device: Permanent Pacemaker, AICD Device Placement Date:: 09/10/20 Past Psychological History: Anxiety, Depression Smoking Status: Never smoker Past Alcohol Use History: None Reported Past Drug Use History: None Reported - Past Family History Father Family Medical History: Cancer Additional Family Medical History / Comment(s): Stomach cancer. Brother(s) Family Medical History: Cancer Additional Family Medical History / Comment(s): Lung cancer. Sister(s) Family Medical History: Cancer Additional Family Medical History / Comment(s): Sister had stomach/colon/part of pancreas cancers. Mother Family Medical History: Cancer Additional Family Medical History / Comment(s): Ovarian and cervical cancer. General Exam Limitations: no limitations General appearance: alert, in no apparent distress Head exam: Present: atraumatic, normocephalic, normal inspection Neck exam: Present: normal inspection. Absent: tenderness, meningismus, lymphadenopathy Respiratory exam: Present: normal lung sounds bilaterally. Absent: respiratory distress, wheezes, rales, rhonchi, stridor Cardiovascular Exam: Present: regular rate, normal rhythm, normal heart sounds. Absent: systolic murmur, diastolic murmur, rubs, gallop, clicks Back exam: Absent: normal inspection (Large thoracic incision noted there is some surrounding erythema and granulomatous tissue) Neurological exam: Present: alert Skin exam: Present: warm, dry, intact, normal color. Absent: rash Course Vital Signs 04/23/23 10:53 Temperature 97.8 F Pulse Rate 95 Respiratory 18 Rate Blood Pressure 97/64 O2 Sat by Pulse 100 Oximetry Medical Decision Making - Medical Decision Making Was pt. sent in by a medical professional or institution (LUIGI Blank, DIRECTOR OF LEARNING, urgent care, hospital, or longterm...) When possible be specific @ -No Did you speak to anyone other than the patient for history (EMS, parent, family, police, friend...)? What history was obtained from this source @ -No Did you review nursing and triage notes (agree or disagree)? Why? @ -I reviewed and agree with nursing and triage notes Were old charts reviewed (outside hosp., previous admission, EMS record, old EKG, old radiological studies, urgent care reports/EKG's, longterm records)? Report findings @ -No old charts were reviewed Differential Diagnosis (chest pain, altered mental status, abdominal pain women, abdominal pain men, vaginal bleeding, weakness, fever, dyspnea, syncope, headache, dizziness, GI bleed, back pain, seizure, CVA, palpatations, mental health, musculoskeletal)? @ -[Cellulitis, postsurgical infection EKG interpreted by me (3pts min.). @ -None X-rays interpreted by me (1pt min.). @ -[Chest x-ray shows no acute cardiopulmonary process CT interpreted by me (1pt min.). @ -[None done U/S interpreted by me (1pt. min.). @ -None done What testing was considered but not performed or refused? (CT, X-rays, U/S, labs)? Why? @ -None What meds were considered but not given or refused? Why? @ -None Did you discuss the management of the patient with other professionals (professionals i.e. LUIGI Blank, DIRECTOR OF LEARNING, lab, RT, psych nurse, social media editor, certified anesthesiologist assistant, teacher, technology officer, piano case and bench assembler)? Give summary @ -[[facility] on-call for orthopedics for admission Was smoking cessation discussed for >3mins.? @ -No Was critical care preformed (if so, how long)? @ -No Were there social determinants of health that impacted care today? How? (Homelessness, low income, unemployed, alcoholism, drug addiction, transportation, low edu. Level, literacy, decrease access to med. care, fpc, rehab)? @ -No Was there de-escalation of care discussed even if they declined (Discuss DNR or withdrawal of care, Hospice)? DNR status @ -No What co-morbidities impacted this encounter? (DM, HTN, Smoking, COPD, CAD, Cancer, CVA, ARF, Chemo, Hep., AIDS, mental health diagnosis, sleep apnea, morbid obesity)? @ -None Was patient admitted / discharged? Hospital course, mention meds given and route, prescriptions, significant lab abnormalities, going to OR and other pertinent info. @ -[Admitted for surgical intervention. Patient did have laboratory studies, x- ray, antibiotics were ordered. Undiagnosed new problem with uncertain prognosis? @ -No Drug Therapy requiring intensive monitoring for toxicity (Heparin, Nitro, Insulin, Cardizem)? @ -No Were any procedures done? @ -No Diagnosis/symptom? @ -[Postsurgical infection Acute, or Chronic, or Acute on Chronic? @ -Acute Uncomplicated (without systemic symptoms) or Complicated (systemic symptoms)? @ -Uncomplicated Side effects of treatment? @ -No Exacerbation, Progression, or Severe Exacerbation? @ -No Poses a threat to life or bodily function? How? (Chest pain, [place], [place], pneumonia, PE, COPD, DKA, ARF, appy, cholecystitis, CVA, Diverticulitis, Homicidal, Suicidal, threat to staff... and all critical care pts) @ -No Disposition Clinical Impression: Cellulitis of mid back region, Surgical wound, non healing Disposition: ADMITTED IP TO THIS [facility] Condition: Fair Time of Disposition: 12:15
[2023-04-23 12:45] LABS: Anisocytosis Slight; Basophils % (A) 0 %; Eosinophils # (A) 0.1 k/uL (0-0.7); Eosinophils % (A) 2 %; HCT 25.8 % (34.0-46.0); HGB 8.1 gm/dL (11.4-16.0); Hypochromasia Marked; Lymphocytes # (A) 0.9 k/uL (1.0-4.8); Lymphocytes % (A) 15 %; MCH 27.5 pg (25.0-35.0); MCHC 31.5 g/dL (31.0-37.0); MCV 87.3 fL (80.0-100.0); Monocytes # (A) 0.4 k/uL (0-1.0); Monocytes % (A) 7 %; Neutrophils # (A) 4.5 k/uL (1.3-7.7); Neutrophils % (A) 73 %; Poikilocytosis Slight; RBC 2.95 m/uL (3.80-5.40); RDW 16.6 % (11.5-15.5); WBC 6.1 k/uL (3.8-10.6)
[2023-04-23 12:49] LABS: Partial Thromboplastin Time 23.3 sec (22.0-30.0); Prothrombin Time 10.8 sec (10.0-12.5)
[2023-04-23 12:54] LABS: ALT 13 U/L (4-34); AST 23 U/L (14-36); African American GFR (CKD) 52 (>60 ml/min/1.73 sqM); Alkaline Phosphatase 191 U/L (38-126); Anion Gap 7 mmol/L; Blood Urea Nitrogen 34 mg/dL (7-17); Calcium 9.1 mg/dL (8.4-10.2); Carbon Dioxide 24 mmol/L (22-30); Chloride 109 mmol/L (98-107); Glucose 119 mg/dL (74-99); Non-African American GFR(CKD) 45 (>60 ml/min/1.73 sqM); Potassium 4.5 mmol/L (3.5-5.1); Sodium 140 mmol/L (137-145); Total Bilirubin 0.4 mg/dL (0.2-1.3); Total Protein 5.2 g/dL (6.3-8.2)
--- NOTE | 2023-04-23 13:04 | XR ---
EXAMINATION TYPE: XR chest 2V DATE OF EXAM: 04/23/2023 COMPARISON: 03/21/2023 TECHNIQUE: PA and lateral views submitted. HISTORY: Preop FINDINGS: The lungs are clear and there is no pneumothorax, pleural effusion, or focal pneumonia. Heart size normal and no overt failure. Osseous structures demonstrate hypertrophic and degenerative changes of the spine. Postsurgical change overlying the vertebral column. Multilead cardiac device. Limited insp iration. Diffuse osteopenia with AC joint arthropathy. A density along the right paratracheal stripe may represent hypertrophic spurring or calcification. IMPRESSION: 1. No acute process.
[2023-04-23 13:21] LABS: Platelet Count 170 k/uL (150-450)
[2023-04-23] MEDS: HYDROmorphone 1 MG/ML 1 ML SYRINGE IVP PRN (14:58)
[2023-04-23] MEDS ORDERED: SENNOSIDES 8.6 MG TAB PO PRN (17:12)
--- NOTE | 2023-04-23 17:13 | P.HPOR ---
History of Present Illness H&P Date: 04/23/23 Chief Complaint: Nonhealing thoracolumbar wound Patient is a 67-year-old female who presents to the hospital from Dr. Meeks's office due to nonhealing thoracolumbar wound patient did have surgery performed by Dr. Meeks 1 month ago for T9-L2 stabilization for T11 fracture and status post fall. Patient says her back pain has been improving over the past month. Patient says she has been staying at [facility] for rehab. Patient notes she did see Dr. Meeks at the first follow up 2 weeks ago and the wounds seem to be healing somewhat, but there were some issues and when she follows up today the wound seem to be draining and presenting with some purulence. Patient denies any chills or fevers. Patient states that the pain in the back has been improving since surgery and the symptoms throughout her legs are decreasing since surgery. Patient notes since surgery she has had some weakness, although she said she has had therapy daily while at rehab. Patient denies chest pain, fever, shortness breath, nausea, vomiting, change in vision, loss of bowel/bladder control. Past Medical History Past Medical History: Asthma, Diabetes Mellitus, GERD/Reflux, Hyperlipidemia, Musculoskeletal Disorder, Osteoarthritis (OA), Pneumonia, Renal Disease, Sleep Apnea/CPAP/BIPAP, Vascular Disorder Additional Past Medical History / Comment(s): neuropathy bilateral hands/legs/feet, CKD stage III, hx kidney stones, anemia, UTI/septic due to lodged kidney stone, CARLOS with bipap, bronchitis, orthostatic hypotension with near syncope, vertigo, chronic low back pain/DDD, scoliosis, bilateral carpal tunnel syndrome, bilateral varicosities, migraines, SEE DR ALFORD H&P, gout, hx anemia(from nicked vein in left kidney after surgery for kidney stone), "embolism in my chest" History of Any Multi-Drug Resistant Organisms: None Reported Past Surgical History: AICD, Appendectomy, Back Surgery, Cardiac Ablation, Section, Cholecystectomy, Heart Catheterization, Hysterectomy, Joint Replacement, Orthopedic Surgery, Pacemaker Additional Past Surgical History / Comment(s): Rt knee arthroscopy, john total knee arthroplasty, pain clinic procedures, D&C, colonoscopy, bilateral leg varicose vein surgery, lithotripsies, surgical removal of stones, Myelogram([place]) 2019, Lumbar fusion L3-4, lumbar puncture for headaches 2019 (had spinal headache post), laminectomy, bakers cyst removed from rt knee, john cataracts, 02/12/21 back surgery with complications, cervical fusion Dec 08 Past Anesthesia/Blood Transfusion Reactions: No Reported Reaction Additional Past Anesthesia/Blood Transfusion Reaction / Comment(s): Pt has received blood without reaction. Type of Cardiac Device: Permanent Pacemaker, AICD Device Placement Date:: 09/10/20 Past Psychological History: Anxiety, Depression Smoking Status: Never smoker Past Alcohol Use History: None Reported Past Drug Use History: None Reported - Past Family History Father Family Medical History: Cancer Additional Family Medical History / Comment(s): Stomach cancer. Brother(s) Family Medical History: Cancer Additional Family Medical History / Comment(s): Lung cancer. Sister(s) Family Medical History: Cancer Additional Family Medical History / Comment(s): Sister had stomach/colon/part of pancreas cancers. Mother Family Medical History: Cancer Additional Family Medical History / Comment(s): Ovarian and cervical cancer. Medications and Allergies Home Medications Medication Instructions Recorded Confirmed Type Montelukast [Singulair] 10 mg PO HS 11/02/18 04/23/23 History Atorvastatin [Lipitor] 20 mg PO HS 09/05/19 04/23/23 History Topiramate [Topamax] 50 mg PO HS 09/05/19 04/23/23 History Insulin Lispro [humaLOG Kwikpen] 10 unit SQ TID-W/MEALS 02/09/20 04/23/23 History Cyanocobalamin (Vitamin B-12) 1,000 mcg PO DAILY 06/09/22 04/23/23 History [Vitamin B-12] Midodrine HCl [ProAmatine] 10 mg PO TID PRN 06/09/22 04/23/23 History allopurinoL 100 mg PO DAILY 06/09/22 04/23/23 History Insulin Glargine,Hum.rec.anlog 30 units SQ HS 01/07/23 04/23/23 History [Lantus Solostar Pen] Yuperli 175mcg/3ml 175 mcg INHALATION RT-DAILY 01/07/23 04/23/23 History Aspirin EC [Ecotrin Low Dose] 81 mg PO DAILY 03/17/23 04/23/23 History Ferrous Sulfate [Iron (65 MG 325 mg PO DAILY 03/17/23 04/23/23 History Elemental)] calcitrioL 0.25 mcg PO SUTH 03/17/23 04/23/23 History Pantoprazole [Protonix] 40 mg PO AC-BID tab 03/23/23 04/23/23 Rx Cyclobenzaprine [Flexeril] 5 mg PO Q8H 04/23/23 04/23/23 History Gabapentin 300 mg PO Q6H 04/23/23 04/23/23 History HYDROcodone/APAP 10-325MG [[place] 1 tab PO Q4H PRN 04/23/23 04/23/23 History 10-325] Insulin Lispro [humaLOG Kwikpen] See Protocol SQ ACHS 04/23/23 04/23/23 History Ipratropium-Albuterol Nebulize 3 ml INHALATION RT-Q6H 04/23/23 04/23/23 History [Duoneb 0.5 mg-3 mg/3 ml Soln] Meclizine [Antivert] 12.5 mg PO TID PRN 04/23/23 04/23/23 History Sennosides-Docusate Sodium 2 tab PO DAILY PRN 04/23/23 04/23/23 History [Senokot-S] Sennosides/Docusate Sodium [Senna 1 tab PO DAILY 04/23/23 04/23/23 History Plus 8.6-50 mg Softgel] carvediloL [Coreg] 6.25 mg PO BID 04/23/23 04/23/23 History lisinopriL [Zestril] 2.5 mg PO DAILY 04/23/23 04/23/23 History Allergies Allergy/AdvReac Type Severity Reaction Status Date / Time No Known Allergies Allergy Verified 04/23/23 12:50 Physical Examination Inspection: dressing present over spine. Midportion of incision over spine appears to be fluctuant and presenting with purulence. Area does seem to be macerated. Negative for any active drainage. Sensation: Equal, symmetric, bilaterally intact throughout the upper and lower extremities. Palpation: moderate TTP diffusely throughout the lumbar spine at midline and on the right and left. Moderate TTP at midline in lower thoracic spine. NTTP throughout rest of exam Range of motion: Patient does have good range of motion bilateral lower extremities on exam. There is referred pain to the low back during hip flexion and extension bilaterally as well as knee flexion bilaterally. Patient has full ROM throughout bilateral upper extremities on exam. Motor: 4-/5 in all major motor groups in bilateral lower extremities on exam. 4+/5 in all major motor groups in bilateral upper extremities Special tests: Negative Homans bilaterally. Negative clonus. Negative Elliott bilaterally Neurovascular: Radial pulses intact, 2+ bilaterally. DP pulses palpable bilaterally. Cap refill under 3 seconds in digits of upper extremities. Results - Labs Labs: Abnormal Lab Results - Last 24 Hours (Table) 04/23/23 04/23/23 Range/Units 12:14 12:14 RBC 2.95 L (3.80-5.40) m/uL Hgb 8.1 L (11.4-16.0) gm/dL Hct 25.8 L (34.0-46.0) % RDW 16.6 H (11.5-15.5) % Lymphocytes # 0.9 L (1.0-4.8) k/uL Chloride 109 H (98-107) mmol/L BUN 34 H (7-17) mg/dL Creatinine 1.23 H (0.52-1.04) mg/dL Glucose 119 H (74-99) mg/dL Alkaline Phosphatase 191 H (38-126) U/L Total Protein 5.2 L (6.3-8.2) g/dL Albumin 3.0 L (3.5-5.0) g/dL H & H 04/23/23 Range/Units 12:14 Hgb 8.1 L (11.4-16.0) gm/dL Hct 25.8 L (34.0-46.0) % Coagulation 04/23/23 Range/Units 12:14 INR 1.0 (<1.2) Result Diagrams: 04/23/23 12:14 04/23/23 12:14 Assessment and Plan Assessment: 1. Nonhealing thoracolumbar wound; history of recent T9-L2 stabilization for T11 fracture Plan: 1. Nonhealing thoracolumbar wound; history of recent T9-L2 stabilization for T11 fracture- surgery has been scheduled for tomorrow, 04/24/2023incision and drainage of nonhealing thoracolumbar wound. Dr. Ambrose conley has been consulted for medical management. Pain medications needed. PT/OT daily. Weightbearing as tolerated with walker and assistance as needed. We'll continue to follow patient during standard hospital. CHADD quintana and MARIOs ordered. Nothing by mouth after midnight tonight 2. Appreciate medical management 3. Pain management - norco; gabapentin; Flexeril 4. DVT prophylaxis - CHADD quintana and SCDs 5. GI prophylaxis - senna 6. PT/OT - weightbearing as tolerated with walker and assistance 7. Encourage incentive spirometer use Time with Patient: Less than 30
[2023-04-23] MEDS ORDERED: MIDODRINE 5 MG TAB PO PRN (18:02)
[2023-04-23] MEDS ORDERED: SENNOSIDES-DOCUSATE SODIUM 1 EACH TAB PO PRN (18:02)
[2023-04-23 18:35] LABS: Glucose,Whole Blood 117 mg/dL (70-110)
[2023-04-23 18:35] LABS: Glucose,Whole Blood 112 mg/dL (70-110)
[2023-04-23] MEDS: carvediloL 6.25 MG TAB PO SCH (18:51)
[2023-04-23] MEDS: CYCLOBENZAPRINE 5 MG TAB PO SCH (18:51)
[2023-04-23] MEDS: GABAPENTIN 300 MG CAP PO SCH (18:51)
[2023-04-23 20:12] LABS: Glucose,Whole Blood 213 mg/dL (70-110)
[2023-04-23] MEDS: IPRATROPIUM-ALBUTEROL 3 ML NEB INHALATION SCH (20:48)
[2023-04-23] MEDS: ATORVASTATIN 20 MG TAB PO SCH (21:08)
[2023-04-23] MEDS: MONTELUKAST 10 MG TAB PO SCH (21:09)
[2023-04-23] MEDS: TOPIRAMATE 25 MG TAB PO SCH (21:09)
[2023-04-23] MEDS: HYDROcodone/APAP 10-325MG 1 EACH TAB PO PRN (21:12)
--- NOTE | 2023-04-23 21:25 | CONS ---
CONSULTATION HISTORY OF PRESENT ILLNESS: This is a 67-year-old female, needed readmission for back infection. Dr. Meeks sent her over here as she is scheduled for surgery tomorrow, irritation, possible infection around the incision site. She is in severe pain. HOME MEDICINES: Reviewed include, 1. Singulair. 2. Lipitor. 3. Topamax. 4. Insulin. 5. Primatene. 6. Allopurinol. 7. Lantus. 8. Coreg. 9. Gabapentin. 10.Iron sulfate. 11.Lisinopril. 12.Yupelri. REVIEW OF SYSTEMS: A 14-point review of systems otherwise negative. ALLERGIES: Negative. PAST MEDICAL HISTORY: Asthma, COPD, diabetes mellitus, GERD, osteoarthritis, degenerative disease, lumbar neuropathy, sleep apnea, anemia, BiPAP, chronic lumbar disease, scoliosis, AICD, appendectomy, back surgery, cardiac ablation, cholecystectomy, heart catheterization, hysterectomy. FAMILY HISTORY: Cancer of the stomach in father. Brother had lung cancer. Sister, cancer of the stomach, pancreas. Mother, cancer ovaries and cervical. PHYSICAL EXAMINATION: VITAL SIGNS: Temperature 97.8, pulse ox 90% to 95%, respiratory rate 16 to 18, blood pressure 97/64, and O2 100. HEENT: Normocephalic, atraumatic. Pupils equal, round, and reactive. LUNGS: Transmitted upper sounds. CARDIOVASCULAR: S1, S2. MUSCULOSKELETAL: Tenderness to palpation, erythema around the large thoracic incision. SKIN: Warm, dry, intact. ASSESSMENT: Cellulitis of the back, rule out osteomyelitis of the spinal area, diabetes mellitus, obesity, diastolic CHF, COPD, asthma, and sleep apnea. Continue current treatment, continue on her CPAP. Home medications have been reordered. Possible surgery to clear out the wound. Prognosis guarded. Please see further orders. Medications have been reordered. MMODL / IJN: [id number] /
[2023-04-23] MEDS ORDERED: CYCLOBENZAPRINE 5 MG TAB PO SCH (22:00)
[2023-04-23] MEDS ORDERED: GABAPENTIN 300 MG CAP PO SCH (22:00)
[2023-04-24 06:04] LABS: Glucose,Whole Blood 154 mg/dL (70-110)
[2023-04-24] MEDS: PANTOPRAZOLE 40 MG TABLET PO SCH (06:35)
[2023-04-24] MEDS: IPRATROPIUM-ALBUTEROL 3 ML NEB INHALATION SCH (07:31)
[2023-04-24] MEDS: INSULIN ASPART (NovoLOG) 100 UNIT/ML VIAL SQ SCH (08:43)
[2023-04-24] MEDS: SENNOSIDES-DOCUSATE SODIUM 1 EACH TAB PO SCH (08:53)
[2023-04-24] MEDS: FERROUS SULFATE 325 MG TAB PO SCH (08:54)
[2023-04-24] MEDS: ASPIRIN 81 MG PO SCH (08:54)
[2023-04-24] MEDS: allopurinoL 100 MG TAB PO SCH (08:54)
[2023-04-24] MEDS: CYANOCOBALAMIN 500 MCG TAB PO SCH (08:54)
--- NOTE | 2023-04-24 12:06 | P.PN ---
Subjective Progress Note Date: 04/24/23 Principal diagnosis: Nonhealing thoracolumbar wound; history of recent T9-L2 stabilization for T11 fracture Patient was seen at bedside this morning lying semirecumbent position. Patient says she is looking forward to surgery later today. Patient denies any changes at this time. Patient says she is still having some generalized back pain near the incision. Patient denies any radiculopathy. Objective - Vital Signs Vital signs: Vital Signs Temp 98.3 F 04/24/23 07:03 Pulse 80 04/24/23 07:44 Resp 17 04/24/23 07:03 BP 111/71 04/24/23 07:03 Pulse Ox 98 04/24/23 07:03 FiO2 Intake & Output 04/23/23 04/24/23 04/24/23 18:59 06:59 18:59 Weight 92.986 kg Other: # Voids 1 1 # Bowel Movements 0 - Exam Inspection: dressing present over spine. Midportion of incision over spine appears to be fluctuant and presenting with purulence. Area does seem to be macerated. Negative for any active drainage. Sensation: Equal, symmetric, bilaterally intact throughout the upper and lower extremities. Palpation: moderate TTP diffusely throughout the lumbar spine at midline and on the right and left. Moderate TTP at midline in lower thoracic spine. NTTP throughout rest of exam Range of motion: Patient does have good range of motion bilateral lower extremities on exam. There is referred pain to the low back during hip flexion and extension bilaterally as well as knee flexion bilaterally. Patient has full ROM throughout bilateral upper extremities on exam. Motor: 4-/5 in all major motor groups in bilateral lower extremities on exam. 4+/5 in all major motor groups in bilateral upper extremities Special tests: Negative Homans bilaterally. Negative clonus. Negative Elliott bilaterally Neurovascular: Radial pulses intact, 2+ bilaterally. DP pulses palpable bilaterally. Cap refill under 3 seconds in digits of upper extremities. - Labs CBC & Chem 7: 04/23/23 12:14 04/23/23 12:14 Labs: Abnormal Lab Results - Last 24 Hours (Table) 04/23/23 04/23/23 04/23/23 Range/Units 12:14 12:14 14:41 RBC 2.95 L (3.80-5.40) m/uL Hgb 8.1 L (11.4-16.0) gm/dL Hct 25.8 L (34.0-46.0) % RDW 16.6 H (11.5-15.5) % Lymphocytes # 0.9 L (1.0-4.8) k/uL Chloride 109 H (98-107) mmol/L BUN 34 H (7-17) mg/dL Creatinine 1.23 H (0.52-1.04) mg/dL Glucose 119 H (74-99) mg/dL POC Glucose (mg/dL) 112 H (70-110) mg/dL Alkaline Phosphatase 191 H (38-126) U/L Total Protein 5.2 L (6.3-8.2) g/dL Albumin 3.0 L (3.5-5.0) g/dL 04/23/23 04/23/23 04/24/23 Range/Units 16:36 20:11 05:58 RBC (3.80-5.40) m/uL Hgb (11.4-16.0) gm/dL Hct (34.0-46.0) % RDW (11.5-15.5) % Lymphocytes # (1.0-4.8) k/uL Chloride (98-107) mmol/L BUN (7-17) mg/dL Creatinine (0.52-1.04) mg/dL Glucose (74-99) mg/dL POC Glucose (mg/dL) 117 H 213 H 154 H (70-110) mg/dL Alkaline Phosphatase (38-126) U/L Total Protein (6.3-8.2) g/dL Albumin (3.5-5.0) g/dL Assessment and Plan Assessment: 1. Nonhealing thoracolumbar wound; history of recent T9-L2 stabilization for T11 fracture Plan: 1. Nonhealing thoracolumbar wound; history of recent T9-L2 stabilization for T11 fracture- surgery has been scheduled for today 04/24/2023incision and drainage of nonhealing thoracolumbar wound. Dr. Snell has been consulted for medical management. Pain medications needed. PT/OT daily. Weightbearing as tolerated with walker and assistance as needed. We'll continue to follow patient during her stay in hospital. CHADD quintana and SCDs ordered. Nothing by mouth at this time. 2. Appreciate medical management 3. Pain management - norco; gabapentin; Flexeril 4. DVT prophylaxis - CHADD quintana and SCDs 5. GI prophylaxis - senna 6. PT/OT - weightbearing as tolerated with walker and assistance 7. Encourage incentive spirometer use Time with Patient: Less than 30
[2023-04-24 12:24] LABS: Glucose,Whole Blood 126 mg/dL (70-110)
[2023-04-24 14:47] LABS: Glucose,Whole Blood 110 mg/dL (70-110)
[2023-04-24] MEDS: SODIUM CHLORIDE 0.9% 500 ML 500 ML IV ONE (14:51)
[2023-04-24] MEDS: ONDANSETRON 4 MG/2 ML VIAL IVP ONE (14:54)
[2023-04-24] MEDS: DEXAMETHASONE SOD PHOSPHATE 4 MG/ML 1 ML VIAL IVP ONE (15:15)
--- NOTE | 2023-04-24 15:16 | P.PN ---
Progress Note - Text Progress Note Date: 04/24/23 Patient seen and examined, I reviewed the note, discussed the case with the PA first hand and agree with the assessment and plan of LUIGI Mercedes. Please see my notes below for any additional recommendations. Spine Surgery Clinical and Risk Review MALCOLM HYMAN is a 67 YO FEMALE presenting for evaluation of WOUND ULCERATION AND BREAKDOWN. It was my pleasure to have seen and examined MALCOLM HYMAN. In our visit today we have had a chance to go over subjective complaints, phy sical examination findings and treatments including the natural course history without intervention and various interventional options. The patients imaging demonstrates STABLE POST OP FINDINGS FOR REVISION SURGERY DUE TO FRACTURE AT L1 REGION. NO COMPLICATING PROCESS. On physical exam, MALCOLM HYMAN demonstrates WOUND ULCERATION WITH DEHISCENCE IN THE MID TO UPPER PORTION LIKELY DUE TO PRESSURE. I have explained to the patient that as their condition progresses it will cause further neurological deficits and eventual paralysis. Based on the patients imaging, physical exam, and the rapid progression and disabling nature of their symptoms, at this time I recommend surgery in the form or a: I&D LUMBAR SPINE. I discussed the risk and benefits of this procedure at length with MALCOLM HYMAN The patient agreed to considered pursuing the procedure abovementioned. Prior to surgery, she should follow up with her PCP (Cardio, ID, IM etc) for clearance. Questions were invited and answered, and the patient wishes to proceed as outlined below. Currently, I am recommendin. IRRIGATION AND DEBRIDEMENT LUMBAR SPINE WOUND WITH WOUND REVISION. 2. Follow up with PCP for surgical clearance 3. Review of surgical risks and benefits as well as an educational packet on the proposed surgical procedure. Risks: All surgical procedures come with inherent risks, including those related to positioning, anesthesia, intraoperative findings, and postoperative complications. It is important to understand that surgery does not come with any guarantee of a successful outcome as complications and adverse events are always possible. The patient was given a handout in office today discussing the surgical procedure and risks associated with the intervention, both of which were discussed with the patient. These risks include but are not limited to the following: * Experiencing same, different or even worse symptoms in back, neck, arms, or legs compared to before surgery. * Requiring further surgery or other forms of treatment presently or at some time in the future at same or other levels of the intended spine surgery. * On an extreme but fortunately relatively rare basis severe complication such as blindness, stroke, heart attack, temporary and/or permanent nerve injury, paralysis, coma, or may occur, sometimes without known explanation. * Surgical complications may include but are not limited to risk of infection, fluid accumulation in the surgical dissection site, including a seroma or hematoma, that requires additional surgery, wound drainage, bleeding, new numbness or weakness, vision changes/loss, spinal fluid leakage, non-healing and/or infected incision, headaches, difficulty or inability to swallow, hoarseness, hemopneumothorax, pneumothorax, impotence, retrograde ejaculation, vaginal dryness; injury to nerves, spinal cord, blood vessels, lymphatics or other vital organs (i.e., bowel injury, injury to the great vessels); heterotopic bone formation; complications related to the hardware such as screws, rods, cages including misplaced hardware, device failure, instrumentation at the wrong spine level, hardware fracture/breakage, or hardware loosening; vertebral failure of the spinal column above or below the newly placed hardware; retained surgical instrumentations or devices and the need for further surgery. * Medical risks of the planned spine surgery include but are not limited to generalized Infections to the whole body or local areas outside of the surgical site (sepsis), heart attack, bleeding, anaphylaxis, meningitis, seizure, epilepsy, hearing loss, burn parks, laceration of the head or other areas of the body, bruising, hypersensitivity of the skin, bladder over distension; allergic reaction; shoulder injury related to positioning; fat, blood and air clots to other areas of the body like heart, lungs, brain; failure of internal organs such as lungs, kidneys, liver and excessive bleeding. If blood transfusions are necessary, note that transfusions may cause intolerance reactions such as anaphylaxis or other complex reactions. * Despite best efforts, the results of spine surgery might not heal in terms of bone, soft tissues such as skin, fascia, ligaments, and joints. Additionally, in order to achieve best possible results, spine surgery may be carried out beyond the initially planned levels and involve decompression, fusion including insertion of hardware at levels other than the original intended area of surgical interest change some portions of the procedure in order to ensure the best possible outcomes. * With spine surgery and spinal fusion, there are different off label uses of instrumentation (devices, implants and hardware) as well as biological substances (bone morphogenic proteins, demineralized bone matrix) as well as using extra bone from allograft sources (i.e. cadaver bone) or autograft (iliac crest bone, ribs, or the spine itself). The patient has been given information about these practices and their inherent risks and benefits. The patient has had a chance to review all the listed information, has been given print outs detailing this information, and has had all his/her questions answered to their satisfaction. It was my pleasure to have seen and examined MALCOLM HYMAN. In our visit today we have had a chance to go over my understanding of our patient's current condition, the natural course history without intervention and various interventional options. Questions were invited and answered, and the patient wishes to proceed as outlined above. I have seen and examined the patient for 25 minutes and we have spent more than 50% of the time in repeat and detailed counseling about the patient's condition, its natural course history with out and as much as can be predicted with surgery and re-review of various surgical treatment options. In conclusion, MALCOLM HYMAN and [his/her spouse/partner] requested we proceed with the above suggested surgery and are willing to accept risks and limitations of the suggested surgery as nature of the disease process and our best attempts at treatment for the condition. Thank you again for allowing us to be part of your patient's care. Please don't hesitate to contact me if you have any further questions. Signed and authenticated by: Jomar Scruggs [facility] [address] [facility], [address] [address]
[2023-04-24] MEDS ORDERED: PHENYLEPHRINE 10 MG/ML VIAL ONE (15:41)
[2023-04-24] MEDS ORDERED: MIDAZOLAM 2 MG/2 ML VIAL ONE (15:41)
[2023-04-24] MEDS ORDERED: GLYCOPYRROLATE 0.2 MG/ML 2 ML VIAL ONE (15:41)
[2023-04-24] MEDS ORDERED: NEOSTIGMINE 1 MG/ML 10 ML VIAL ONE (15:41)
[2023-04-24] MEDS ORDERED: PROPOFOL 10 MG/ML 20 ML VIAL IV ONE (15:41)
[2023-04-24] MEDS ORDERED: fentaNYL (PF) 50 MCG/ML 2 ML AMP ONE (15:41)
[2023-04-24] MEDS ORDERED: SUCCINYLCHOLINE CHLORIDE 200 MG/10 ML VIAL IV ONE (15:41)
[2023-04-24] MEDS ORDERED: LIDOCAINE 1% INJ 10MG/ML (20 ML MDV) ONE (15:41)
[2023-04-24] MEDS ORDERED: ROCURONIUM 10 MG/ML (5 ML VIAL) IV ONE (15:41)
[2023-04-24] MEDS: SODIUM CHLORIDE 0.9% 50 ML with ceFAZolin 2,000 MG IV ONE (16:05)
[2023-04-24] MEDS: GENTAMICIN 80 MG in SODIUM CHLORIDE 0.9% IRRIGATIO 3,000 ML IRRIGATION ONE (16:12)
[2023-04-24] MEDS: ceFAZolin 3,000 MG in SODIUM CHLORIDE 0.9% IRRIGATIO 3,000 ML IRRIGATION ONE (16:16)
[2023-04-24] MEDS: VANCOMYCIN 1,000 MG VIAL MISCELLANE ONE (16:24)
[2023-04-24] MEDS ORDERED: HYDROcodone/APAP 5-325MG 1 EACH TAB PO PRN (17:49)
[2023-04-24 18:15] LABS: Glucose,Whole Blood 154 mg/dL (70-110)
[2023-04-24] MEDS: ACETAMINOPHEN TAB 325 MG TAB PO SCH (18:45)
[2023-04-24 20:59] LABS: Glucose,Whole Blood 183 mg/dL (70-110)
[2023-04-25 06:29] LABS: Glucose,Whole Blood 139 mg/dL (70-110)
[2023-04-25 10:02] LABS: HCT 26.6 % (37.2-46.3); HGB 8.1 g/dL (12.0-15.0); MCH 26.7 pg (27.0-32.0); MCHC 30.5 g/dL (32.0-37.0); MCV 87.8 FL (80.0-97.0); NRBC Per 100 WBC 0 X 10*3/uL (0.00-0.01); Platelet Count 133 X 10*3/uL (140-440); RBC 3.03 X 10*6/uL (4.10-5.20); RDW 16.2 % (11.5-14.5); WBC 5.89 X 10*3/uL (4.50-10.00)
[2023-04-25 10:03] LABS: Basophils # (A) 0.01 X 10*3/uL (0.00-0.10); Basophils % (A) 0.2 %; Eosinophils # (A) 0 X 10*3/uL (0.04-0.35); Eosinophils % (A) 0 %; Lymphocytes # (A) 0.64 X 10*3/uL (0.90-5.00); Lymphocytes % (A) 10.9 %; Monocytes # (A) 0.29 X 10*3/uL (0.20-1.00); Monocytes % (A) 4.9 %; Neutrophils # (A) 4.92 X 10*3/uL (1.80-7.70); Neutrophils % (A) 83.5 %
[2023-04-25 10:26] LABS: Blood Urea Nitrogen 31.2 mg/dL (9.0-27.0); Calcium 8.6 mg/dL (8.7-10.3); Carbon Dioxide 21.8 mmol/L (21.6-31.8); Chloride 105 mmol/L (96-109); Glucose 145 mg/dL (70-110); Potassium 4.9 mmol/L (3.5-5.5); Sodium 139 mmol/L (135-145)
--- NOTE | 2023-04-25 10:52 | P.OP ---
Date of Procedure: 04/24/23 Preoperative Diagnosis: 1. WOUND ULCERATION WITH DEHISCENCE 2. S/P REVISION T9-L2 FOR PROXIMAL FAILURE WITH FRACTURE AFTER FALL 3. COMPLEX MEDICAL PATIENT Postoperative Diagnosis: 1. WOUND ULCERATION WITH DEHISCENCE 2. S/P REVISION T9-L2 FOR PROXIMAL FAILURE WITH FRACTURE AFTER FALL 3. COMPLEX MEDICAL PATIENT Procedure(s) Performed: 1. EXCISIONAL DEBRIDEMENT OF SKIN, SOFT TISSUE, MUSCLE AND BONE THORACOLUMBAR REGION 12 X 10 X 4 CM USING THE FOLLOWING: -SKIN KINFE USED TO EXCISE SKIN AND ULCERATIONS -KNIFE USED TO REMOVE NECROTIC SUBQ AND MUSCLE TISSUE -RONGURE USED TO REMOVE BONE AND SP CAUSING PRESSURE Implants: NONE Anesthesia: AMITAA Surgeon: Jomar Meeks Clinical Resource Director #1: Espinoza Laguerre (was present and assisted with all aspects of the case from position to closure) Estimated Blood Loss (ml): 150 IV fluids (ml): 1,100 Urine output (ml): 200 Pathology: none sent Condition: stable Disposition: PACU Indications for Procedure: MALCOLM HYMAN is a 67 YO FEMALE presenting for evaluation of WOUND ULCERATION AND BREAKDOWN. It was my pleasure to have seen and examined MALCOLM HYMAN. In our visit today we have had a chance to go over subjective complaints, physical examination findings and treatments including the natural course history without intervention and various interventional options. The patients imaging demonstrates STABLE POST OP FINDINGS FOR REVISION SURGERY DUE TO FRACTURE AT L1 REGION. NO COMPLICATING PROCESS. On physical exam, MALCOLM HYMAN demonstrates WOUND ULCERATION WITH DEHISCENCE IN THE MID TO UPPER PORTION LIKELY DUE TO PRESSURE. I have explained to the patient that as their condition progresses it will cause further neurological deficits and eventual paralysis. Based on the patients imaging, physical exam, and the rapid progression and disabling nature of their symptoms, at this time I recommend surgery in the form or a: I&D LUMBAR SPINE. I discussed the risk and benefits of this procedure at length with MALCOLM HYMAN The patient agreed to considered pursuing the procedure abovementioned. Prior to surgery, she should follow up with her PCP (Cardio, ID, IM etc) for clearance. Questions were invited and answered, and the patient wishes to proceed as outlined below. Currently, I am recommendin. IRRIGATION AND DEBRIDEMENT LUMBAR SPINE WOUND WITH WOUND REVISION. Description of Procedure: The patient was seen and examined in the preoperative area. All preoperative protocols were followed. Informed consent was obtained risks and benefits of the procedure were discussed at length. Risks including bleeding infection damage to the surrounding tissue and risk of reoperation were discussed with the patient. Risk of anesthesia up to and including was a discussed with the patient. These are outlined in the risk review. They were willing to accept these risks and all of the risks of surgery. The patient was given a weight- based dose of antibiotics in the form of 2 g Ancef. The patient was seen and ev aluated by the anesthesia team who deemed them fit for surgery. The site was marked, the patient was willing to proceed with the procedure. The patient was transferred to the operative suite by the Department of anesthesia. They were then drifted off to sleep by the department anesthesia and GETA was performed. The patient tolerated this well. [Reddy catheter was placed by nursing staff, atraumatically]. Once confirmation of lines and ventilation the patient was transferred to a [prone Nic table very carefully]. All bony prominences including wrists, elbows, axilla, chest, hips, and thighs, and feet were padded very well. Special attention was paid to the genitalia and these were padded accordingly. SCDs were placed on bilateral lower extremities and were connected. Arms were well padded and placed [on arm boards up and out in the 90/90 position]. Once in position, again we confirmed good ventilation capabilities and that lines were running appropriately. The patient's thoracic or lumbar spine was then exposed. 1010s were placed outlining the incision site. Standard alcohol was used to clean the incision site and allowed to dry. C-arm was used to biomark the patient and confirm level for incision which was marked with a skin marker. Operative briefing was performed with all teams and everyone in agreement to proceed. The patient was then prepped and draped in a normal sterile fashion. Timeout was then performed and all parties were in agreement with the procedure to be performed. Marker was used to lamar out an elliptical type incision around the ulcerated portion of the upper thoracolumbar region where there was dehiscence and ulceration of the wound. Skin knife was then used to incise the skin and excised this portion of the ulcerated skin. This measured around 12 cm with 10 mL by 2 cm. We noted then that the fascia started to dehisce deeply and so this was investigated with a small area of dehiscence and this was likely due to the pressure of the spinous process underneath. There is no purulence or signs of other infective process. We then debrided this area with skin knife curettes and a rongeur was used to remove the spinous process of these upper thoracic levels which were causing pressure on the area. Good bleeding bone was noted as well as bleeding soft tissue. Good bleeding skin edges was noted. He was to ASIS was achieved. We then irrigated the area out with 3 L of gentamicin 3 L of Ancef solution followed by Irricept 1 L followed by Betadine solution and 1 L. After this we inspected the area and everything was in good condition. We then washed the area again with 3 L of normal sterile saline. 2 g of vancomycin powder placed deep within the wound. We then closed in a layered fashion the deep fascia with #1 PDS. Then closed the deep subcu tissue with 0 Vicryl. 2-0 Vicryl was used in the superficial subcu tissue and the skin edges were approximated with 2-0 nylon. Wound edges approximated very well. The wound was then cleaned and dressed sterilely with Adaptic 4 x 4's ABDs and foam tape. The patient was transferred back to their hospital bed atraumatically. Patient was then awakened and extubated by the department of anesthesia having tolerated the procedure very well with no complications. They were transferred to the postoperative care unit in stable condition.
--- NOTE | 2023-04-25 11:16 | P.PN ---
Subjective Progress Note Date: 04/25/23 Principal diagnosis: 1. WOUND ULCERATION WITH DEHISCENCE 2. S/P REVISION T9-L2 FOR PROXIMAL FAILURE WITH FRACTURE AFTER FALL 3. COMPLEX MEDICAL PATIENT Patient was seen at bedside this morning in the right lateral recumbent position doing breathing treatment. Patient denies any significant pain. Patient says she is looking forward to working with therapy today. Patient denies any other issues at this time. Patient denies chest pain, fever, chest breath, nausea, vomiting, change in vision, loss of bowel/neck. Objective - Vital Signs Vital signs: Vital Signs Temp 97.6 F 04/25/23 02:00 Pulse 84 04/25/23 08:20 Resp 16 04/25/23 02:00 BP 94/56 04/25/23 02:00 Pulse Ox 95 04/25/23 02:00 FiO2 Intake & Output 04/24/23 04/25/23 04/25/23 18:59 06:59 18:59 Intake Total 352 Output Total 25 Balance 327 Weight 92.986 kg Intake: IV 352 Output: Estimated Blood Loss 25 Other: Voiding Method Toilet # Voids 1 - Exam Inspection: dressing present over spine. Dressing appears be clean, dry, intact time. We will keep dressing in place with possible dressing changes tomorrow. Sensation: Equal, symmetric, bilaterally intact throughout the upper and lower extremities. Palpation: moderate TTP diffusely throughout the lumbar spine at midline and on the right and left. Moderate TTP at midline in lower thoracic spine. NTTP throughout rest of exam Range of motion: Patient does have good range of motion bilateral lower extremities on exam. There is referred pain to the low back during hip flexion and extension bilaterally as well as knee flexion bilaterally. Patient has full ROM throughout bilateral upper extremities on exam. Motor: 4-/5 in all major motor groups in bilateral lower extremities on exam. 4+/5 in all major motor groups in bilateral upper extremities Special tests: Negative Homans bilaterally. Negative clonus. Negative Elliott bilaterally Neurovascular: Radial pulses intact, 2+ bilaterally. DP pulses palpable bilaterally. Cap refill under 3 seconds in digits of upper extremities. - Labs CBC & Chem 7: 04/25/23 06:25 04/25/23 06:25 Labs: Abnormal Lab Results - Last 24 Hours (Table) 02/23/24 02/23/24 02/23/24 Range/Units 12:23 18:12 20:58 POC Glucose (mg/dL) 126 H 154 H 183 H (70-110) mg/dL 04/25/23 Range/Units 06:27 POC Glucose (mg/dL) 139 H (70-110) mg/dL Microbiology - Last 24 Hours (Table) 04/23/23 12:25 Blood Culture - Preliminary Blood 04/23/23 12:10 Blood Culture - Preliminary Blood Assessment and Plan Assessment: 1. WOUND ULCERATION WITH DEHISCENCE 2. S/P REVISION T9-L2 FOR PROXIMAL FAILURE WITH FRACTURE AFTER FALL 3. COMPLEX MEDICAL PATIENT Postop day #1 status post -EXCISIONAL DEBRIDEMENT OF SKIN, SOFT TISSUE, MUSCLE AND BONE THORACOLUMBAR REGION 12 X 10 X 4 CM Plan: 1. Wound ulceration with dehiscence; status post revision T9-L2 for proximal failure with fracture after fall; complex medical patient- surgery performed yesterday, 04/24/2023excisional debridement of skin, soft tissue, muscle and bone thoracolumbar region 12 x 10 x 4 cm. Patient stable at bedside this morning the dressing in place. Pain medications needed. PT/OT daily. Weightbearing as tolerated with walker and assistance as needed. We'll continue to follow patient during her stay in hospital. Plan for transfer back to [facility] for rehab on Thursday. 2. Appreciate medical management 3. Pain management - norco; gabapentin; Flexeril 4. DVT prophylaxis - CHADD hose and SCDs 5. GI prophylaxis - senna 6. PT/OT - weightbearing as tolerated with walker and assistance 7. Encourage incentive spirometer use 8. Discharge planning - Plan for transfer back to [facility] for rehab on Thursday. Time with Patient: Less than 30
[2023-04-25 11:56] LABS: Glucose,Whole Blood 112 mg/dL (70-110)
[2023-04-25 17:04] LABS: Glucose,Whole Blood 138 mg/dL (70-110)
[2023-04-25] MEDS: SODIUM CHLORIDE 0.9% 1,000 ML IV SCH (17:50)
[2023-04-25 21:14] LABS: Glucose,Whole Blood 125 mg/dL (70-110)
[2023-04-26 05:53] LABS: Glucose,Whole Blood 131 mg/dL (70-110)
[2023-04-26] MEDS: HYDROmorphone 0.5 MG/0.5 ML SYRINGE IVP PRN (09:24)
--- NOTE | 2023-04-26 09:48 | P.PN ---
Subjective Progress Note Date: 04/26/23 Principal diagnosis: 1. WOUND ULCERATION WITH DEHISCENCE 2. S/P REVISION T9-L2 FOR PROXIMAL FAILURE WITH FRACTURE AFTER FALL 3. COMPLEX MEDICAL PATIENT Patient was seen at bedside this morning in the right lateral recumbent position doing breathing treatment. Patient denies any significant pain. Patient says she is looking forward to working with therapy today. Patient denies any other issues at this time. Patient denies chest pain, fever, chest breath, nausea, vomiting, change in vision, loss of bowel/neck. Objective - Vital Signs Vital signs: Vital Signs Temp 97.8 F 04/26/23 07:10 Pulse 88 04/26/23 09:09 Resp 16 04/26/23 07:10 BP 89/55 04/26/23 07:10 Pulse Ox 99 04/26/23 07:10 FiO2 Intake & Output 04/25/23 04/26/23 04/26/23 18:59 06:59 18:59 Intake Total 325 Balance 325 Intake: Intake, IV Titration 325 Amount Sodium Chloride 0.9% 50 225 ml @ 0 mls/hr IV .STK-MED ONE with ceFAZolin 2,000 mg Rx#:[id number] ceFAZolin 2 gm In Sodium 100 Chloride 0.9% 50 ml @ 100 mls/hr IVPB Q8HR [facility] Rx# :[id number] Other: Voiding Method Bedside Commode # Voids 1 - Exam Inspection: dressing present over spine. Dressing appears be clean, dry, intact time. We will keep dressing in place with possible dressing changes tomorrow. Sensation: Equal, symmetric, bilaterally intact throughout the upper and lower extremities. Palpation: moderate TTP diffusely throughout the lumbar spine at midline and on the right and left. Moderate TTP at midline in lower thoracic spine. NTTP throughout rest of exam Range of motion: Patient does have good range of motion bilateral lower extremities on exam. There is referred pain to the low back during hip flexion and extension bilaterally as well as knee flexion bilaterally. Patient has full ROM throughout bilateral upper extremities on exam. Motor: 4-/5 in all major motor groups in bilateral lower extremities on exam. 4+/5 in all major motor groups in bilateral upper extremities Special tests: Negative Homans bilaterally. Negative clonus. Negative Elliott bilaterally Neurovascular: Radial pulses intact, 2+ bilaterally. DP pulses palpable bilaterally. Cap refill under 3 seconds in digits of upper extremities. - Labs CBC & Chem 7: 04/25/23 06:25 04/25/23 06:25 Labs: Abnormal Lab Results - Last 24 Hours (Table) 04/25/23 04/25/23 04/25/23 Range/Units 06:25 06:25 11:54 RBC 3.03 L (4.10-5.20) X 10*6/uL Hgb 8.1 L (12.0-15.0) g/dL Hct 26.6 L (37.2-46.3) % MCH 26.7 L (27.0-32.0) pg MCHC 30.5 L (32.0-37.0) g/dL RDW 16.2 H (11.5-14.5) % Plt Count 133 L (140-440) X 10*3/uL Lymphocytes # 0.64 L (0.90-5.00) X 10*3/uL Eosinophils # 0 L (0.04-0.35) X 10*3/uL Anion Gap 12.20 H (4.00-12.00) mmol/L BUN 31.2 H (9.0-27.0) mg/dL Est GFR (CKD-EPI) 49 L (>=60) BUN/Creatinine Ratio 26.00 H (12.00-20.00) Ratio Glucose 145 H (70-110) mg/dL POC Glucose (mg/dL) 112 H (70-110) mg/dL Calcium 8.6 L (8.7-10.3) mg/dL 04/25/23 04/25/23 04/26/23 Range/Units 17:02 21:12 05:52 RBC (4.10-5.20) X 10*6/uL Hgb (12.0-15.0) g/dL Hct (37.2-46.3) % MCH (27.0-32.0) pg MCHC (32.0-37.0) g/dL RDW (11.5-14.5) % Plt Count (140-440) X 10*3/uL Lymphocytes # (0.90-5.00) X 10*3/uL Eosinophils # (0.04-0.35) X 10*3/uL Anion Gap (4.00-12.00) mmol/L BUN (9.0-27.0) mg/dL Est GFR (CKD-EPI) (>=60) BUN/Creatinine Ratio (12.00-20.00) Ratio Glucose (70-110) mg/dL POC Glucose (mg/dL) 138 H 125 H 131 H (70-110) mg/dL Calcium (8.7-10.3) mg/dL Microbiology - Last 24 Hours (Table) 04/23/23 12:25 Blood Culture - Preliminary Blood 04/23/23 12:10 Blood Culture - Preliminary Blood Assessment and Plan Assessment: 1. WOUND ULCERATION WITH DEHISCENCE 2. S/P REVISION T9-L2 FOR PROXIMAL FAILURE WITH FRACTURE AFTER FALL 3. COMPLEX MEDICAL PATIENT Postop day #2 status post -EXCISIONAL DEBRIDEMENT OF SKIN, SOFT TISSUE, MUSCLE AND BONE THORACOLUMBAR REGION 12 X 10 X 4 CM Plan: 1. Wound ulceration with dehiscence; status post revision T9-L2 for proximal failure with fracture after fall; complex medical patient- surgery performed 04/24/2023excisional debridement of skin, soft tissue, muscle and bone thoracolumbar region 12 x 10 x 4 cm. Patient stable at bedside this morning the dressing in place. Pain medications needed. PT/OT daily. Weightbearing as tolerated with walker and assistance as needed. We'll continue to follow patient during her stay in hospital. Plan for transfer back to [facility] for rehab tmrw. 2. Appreciate medical management 3. Pain management - norco; gabapentin; Flexeril 4. DVT prophylaxis - CHADD hose and SCDs 5. GI prophylaxis - senna 6. PT/OT - weightbearing as tolerated with walker and assistance 7. Encourage incentive spirometer use 8. Discharge planning - Plan for transfer back to [facility] for rehab tmrw Time with Patient: Less than 30
[2023-04-26 11:36] LABS: Glucose,Whole Blood 85 mg/dL (70-110)
--- NOTE | 2023-04-26 13:42 | PN ---
PROGRESS NOTE DATE OF SERVICE: 04/25/2023 SUBJECTIVE: Status post incision and drainage of her back. She is very happy with how it came out. She says she did not take much pus out. She is having no chest pain or shortness of breath. OBJECTIVE: VITAL SIGNS: Have been stable. Breathing better. Pulse is 80s to 100s. Respiratory rate 16 to 18. CARDIOVASCULAR: S1 and S2. LUNGS: Transmitted upper sounds. Bandage over the wound. HEMATOLOGY: Negative Homans. PSYCH: Fair mood and affect. LABORATORY DATA: Blood cultures are negative. ASSESSMENT: 1. Diabetes mellitus. 2. Cellulitis of the thoracic spinal wound. 3. Insulin-dependent diabetes mellitus. 4. Chronic obstructive pulmonary disease. 5. Pulmonary hypertension. 6. Congestive heart failure. PLAN: Prognosis guarded. Please see further orders. Continue current treatment. Home medications have all been reordered. MMODL / IJN: [id number] /
--- NOTE | 2023-04-26 13:49 | PN ---
PROGRESS NOTE SUBJECTIVE: This is a 67-year-old white female, status post wound infection of the back, status post revision to T9-L2 for wound ulceration with dehiscence complex medical patient, continuing physical therapy. Blood pressure is low 89/55, respiratory rate 16 to 18. We had to give her fluids last night and hold her blood pressure medications. Pulse was 88, temp 97.8, O2 99 with a check of orthostatic changes, home versus rehab center for a while, which she just came from. She has negative Homans. She is tender to palpation diffusely around the lumbar spine, right and left, dressing clear. Lungs clear, cardiovascular S1, S2. She is in good mood. Hemoglobin is 8.1. Still put her on some IV iron. When she is here, diabetes mellitus, insulin is controlled mid 100s, status post incision and debridement, PT OT. She is outpatient hospice, she will be transferred back to [facility] for rehab if she needs it. MMODL / IJN: [id number] /
[2023-04-26 16:48] LABS: Glucose,Whole Blood 126 mg/dL (70-110)
[2023-04-26 20:38] LABS: Glucose,Whole Blood 237 mg/dL (70-110)
[2023-04-27 06:13] LABS: Glucose,Whole Blood 131 mg/dL (70-110)
--- NOTE | 2023-04-27 10:21 | P.DS ---
Providers Date of admission: 04/23/23 12:46 Expected date of discharge: 04/27/23 Attending physician: Jomar Meeks DO Consults: 04/23/23 15:03 Consult Physician Routine Consulting Provider: Vishal Snell Reason/Comments: medical management Do you want consulting provider notified?: Yes Primary care physician: Vishal Snell [facility] Course: Date of admission: 04/24/2023 Date of discharge: 04/27/2023 Admission diagnosis: 1. WOUND ULCERATION WITH DEHISCENCE 2. S/P REVISION T9-L2 FOR PROXIMAL FAILURE WITH FRACTURE AFTER FALL 3. COMPLEX MEDICAL PATIENT Discharge diagnosis: Same Attending physician: Dr. Meeks Surgical procedures: EXCISIONAL DEBRIDEMENT OF SKIN, SOFT TISSUE, MUSCLE AND BONE THORACOLUMBAR REGION 12 X 10 X 4 CM Brief history: Patient is a 67-year-old female with a history of wound ulceration with dehiscence; status post ReVision T9-L2 for proximal failure with fracture after fall. At this point patient has failed conservative treatment measures and has opted to proceed with a elective excisional debridement of skin, soft tissue, muscle and bone thoracolumbar region. Hospital course: Details of patient's surgery can be found in operative report. Patient tolerated the procedure well and was subsequently transported to orthopedic floor. Patient's orthopeidc and medical care was provided daily. Patient had daily laboratory tests performed for evaluation of overall blood counts. Patient had daily physical therapy to include strengthening range of motion as well as education with walker ambulation. Patient was noted to have a relatively uneventful postoperative course. Patient reported satisfactory pain control with oral pain medications by postoperative day 3. Patient showed satisfactory progress with physical therapy. Patient moved steadily through the program and had no difficulty meeting the goals by postoperative day 3. Given patient's otherwise satisfactory course and having met physical therapy goals, plan is to discharge patient to rehab on postoperative day 3. Discharge condition/disposition: Patient will be discharged to rehab in stable condition. Discharge medications: Instructions are given on resumption of patient's normal daily medications per primary care recommendation, in addition patient will be prescribed Meadow; gabapentin; Duricef. Spine Discharge and Recovery Instructions Date of Surgery: 04/24/2023 Diagnosis: 1. WOUND ULCERATION WITH DEHISCENCE 2. S/P REVISION T9-L2 FOR PROXIMAL FAILURE WITH FRACTURE AFTER FALL 3. COMPLEX MEDICAL PATIENT Procedure: EXCISIONAL DEBRIDEMENT OF SKIN, SOFT TISSUE, MUSCLE AND BONE THORACOLUMBAR REGION 12 X 10 X 4 CM Medications: See medication list All medication refills should be obtained through your primary care doctor or your clinic spine surgeon. Please discuss prescription refills at your follow up appointment. Do not call the hospital for medication refills. Dressing: Leave your dressing in place for a total of 5 days post operatively. Then you may remove your dressing and leave open to air. Keep the area clean and if not able to keep area clean, then cover with sterile gauze and tape. Showering: You may shower 3 days after your procedure allowing soap and water to run over incision. Do not scrub. Do not soak. Blot dry. Follow up: Please confirm a follow up appointment with your surgeon 3 weeks post operatively. Please make an appointment to follow up with your PCP in 1-2 weeks after surgery for evaluation 3 phase, 3-week plan POST OP WEEKS 1-3 1. Lifting/carrying/pushing/pulling limited to less than 5 pounds. 2. Do not sit for longer than 15 minutes at one time. Get up and walk around. Prolonged sitting is NOT advised. If you lay down, see if you can tolerate laying down on you front (belly side) 3. Walk for periods of 15 minutes = 1 mile but no longer; do it multiple times times each day. 4. Ice your low back after activity. POST OP WEEKS 3-6 1. Lifting limited to less than 20 pounds. 2. Do not sit for longer than 30 minutes at a time. Frequently change positions. Use a sit-to stand workstation or take frequent breaks from sitting if you have returned to work. 3. Walk for 30 minutes each day. If possible, do these three or more times a day POST OP WEEKS 6+ At your 6-week appointment we will give you a physical therapy referral to focus on a core stabilization and strengthening program. You should also work on leg & buttock strengthening, hamstring & quadriceps stretching, and continue a low impact aerobic activity program such as swimming, walking, or riding a stationary bicycle. During the initial 6 weeks after your surgery, you are at the highest risk of re-injuring your spine. You should generally avoid BLTs (bending, lifting and twisting combination motions) and follow the above guidelines to reduce the chance of reinjury. You can anticipate post op appointments in our office at approximately 3 weeks and 6 weeks after your surgery. INCISION CARE: If your incision is not draining you do NOT need to cover it with a dressing. Keep your incision clean, dry and intact. In most cases, we apply skin glue, mana or sutures to the incision at the time of surgery. This will be like a crust or have the appearance of a scab and will fall off in time on its own. The stitches or mana need to be removed at 3 weeks post op appointment. You may begin to shower 3 days after surgery (this allows the glue to wahl well). However, please avoid scrubbing the incision site or peeling off any of the skin glue. This will ensure optimal healing of your incision. Also, during this time avoid soaking the incision area in water - this includes swimming pools, hot tubs or baths. No ointments, lotions or oils on the incision until your surgeon allows. Leave mana, sutures or glue in place. Neurological dysfunction that comes on suddenly can also be a sign of a stroke. Below some common symptoms of a stroke are listed: B - balance difficulty such as sudden onset walking or leaning to one side - NEW E - eye problem such as sudden double vision or trouble seeing on one side - NEW F - Facial weakness or numbness on one side - NEW A - Arm or leg weakness or numbness on one side - NEW S - Slurred speech or difficulty with word finding - NEW T - Time is BRAIN! Call 911 as soon as you recognize these symptoms Diet: Consume a regular diet rich in vegetables and lean protein such as chicken or fish. You should consume in a ratio of approximately 20% fats|40% carbohydrates|40%protein. Vegetables, sweet potatoes, brown rice or quinoa are examples of good carbohydrates. Chips, white bread, cookies and sweets/sugar are examples of bad carbohydrates. Limit your bad carbs, go wild with good carbs. "Life's Simple 7" Guidelines as per [place] [employer] These will help you reclaim your life after surgery and cutting machine tender helper in your recovery, keeping in mind your restrictions. (1) Get Active. Physical activity can help people lose weight, control high blood pressure and cholesterol, feel emotionally better, and sleep better. (2) Control Cholesterol. Avoid a diet high in saturated fat, trans fat, & cholesterol. Limit whole milk & cream, ice cream, butter, egg yolks, processed meats (like sausage and hot dogs), and fatty meats. Choose healthy foods that are low in saturated fat, trans fat and cholesterol which include: Fruits and vegetables, fiber rich grain products (like whole grain pasta and brown rice), lean meat such as chicken, fish, nuts, seeds, and legumes. (3) Eat Better. Eat small portions. Shop at the grocery with a list and do not stray from it. Tips for a healthy diet include: Limit sodium intake to less than 1500mg daily, avoid prepackaged, processed, and fast foods, choose a diet rich in fruits, vegetables, and whole grain, high fiber foods, and limit saturated & cholesterol in your diet. (4) Manage Blood Pressure. If you have high blood pressure, you should have a cuff at home so that you can check your blood pressure regularly. Be sure you have a good cuff. An arm one is generally better than a wrist one. Bring the cuff to a doctor's appointment to validate that the measurements that your cuff are taking are accurate. Take your blood pressure twice daily when you are sitting down and relaxing. Record the numbers in a log and bring this log with you to your doctors' appointments. (5) Lose Weight if your BMI is above 25. A healthy BMI is between 19-25. To calculate Your BMI, you may use a Standard BMI Calculator on the NIH BMI website: <www.nhlbi.nih.gov/guidelines/obesity/BMI/bmicalc.htm>. Weigh oneself daily. If you are overweight, set a goal to lose weight. A pound a week loss if needed is a good target. (6) Reduce Blood Sugar. Limit foods and liquids with "added sugars." (Added sugars include sucrose, fructose, glucose, maltose, dextrose, high fructose corn syrup, corn syrup, concentrated fruit juice and honey). (7) Stop Smoking. If you smoke, quitting smoking is one of the best things that you can do for your health. Smoking increases your risk of heart attack, stroke, and peripheral vascular disease, which is a build-up of plaque in your arteries. Please discard all the cigarettes and lighters in your house. Have a plan for what you will do when you have the urge to smoke. Direct and second- hand smoke shortens your life as well as the lives of your family, friends and others around you. For your health and the health of those around you, please c onsider quitting! Proper Bending Body Mechanics: Maintain a wide stance with one foot slightly in front of the other. Keep your back straight. Bend utilizing the strength in your hips and knees. Do not bend at the waist. Maintain the lifted object at your waist-level close to your body. Avoid lifting weight that causes immediately pain or pain anywhere in the body afterwards. Smoking/Nicotine If there was ever one thing that you could do to increase your overall health, decrease your risk of cardiovascular problems by about 39% the second you make the choice, it is to STOP SMOKING. Your body's most instant gratification is the second you stop smoking. We have all heard the studies, read the articles but it is true, smoking is extremely bad for your overall health, and moreover it is detrimental to your bone health. Nicotine, IN ANY FORM, kills bone cells, prevents your body from healing fractures, and significantly prolongs healing after surgery. In spine surgery specifically, it increases your risk of not healing your bones to create a fusion and increases your risk of having a revision surgery due to this up to 60%. I know it is hard. I know it feels impossible. But there are ways. Take control of your life. We are here to help you through it. And when you are ready, ask us and we can direct you to help if you desire. Use the START Plan to Quit Smoking (please visit the Helpguide.org website listed below for more information): S = Set a quit date. Choose a date within the next 2 weeks, so you have enough time to prepare without losing your motivation to quit. If you mainly smoke at work, quit on the weekend, so you have a few days to adjust to the change. T = Tell family, friends, and co-workers that you plan to quit. Let your friends and family in on your plan to quit smoking and tell them you need their support and encouragement to stop. Look for a quit jessica who wants to stop smoking as well. You can help each other get through the rough times. A = Anticipate and plan for the challenges you'll face while quitting. Most people who begin smoking again do so within the first 3 months. You can help yourself make it through by preparing ahead for common challenges, such as nicotine withdrawal and cigarette cravings. R = Remove cigarettes and other tobacco products from your home, car, and work. Throw away all your cigarettes (no emergency pack!), lighters, ashtrays, and matches. Wash your clothes and freshen up anything that smells like smoke. Shampoo your car, clean your drapes and carpet, and steam your furniture. T = Talk to your doctor about getting help to quit. Your doctor can prescribe medication to help with withdrawal and suggest other alternatives. If you can't see a doctor, you can get many products over the counter at your local pharmacy or grocery store, including the nicotine patch, nicotine lozenges, and nicotine gum. Resources for Quitting Smoking: <https://www.[place].gov/documents/[facility]/Quit_Tobacco_Resources_for_patients_313 480_7.pdf> Supplementation: Take recommended dosages of Vitamin D and Calcium to help fortify your bones and help them to heal. See your health maintenance packet for dosages and recommended levels. DVT/VTE prophylaxis: You will be given compression stockings from the hospital. Wear these daily for the first two weeks after surgery. You may take them off at night. You may be prescribed a medication to help thin your blood. Take this as directed. If you are not prescribed this medication, early and frequent ambulation has been shown to be the best prophylaxis to deep vein thrombosis and sequelae related to this event. Assessment: 1. WOUND ULCERATION WITH DEHISCENCE 2. S/P REVISION T9-L2 FOR PROXIMAL FAILURE WITH FRACTURE AFTER FALL 3. COMPLEX MEDICAL PATIENT Procedures: -EXCISIONAL DEBRIDEMENT OF SKIN, SOFT TISSUE, MUSCLE AND BONE THORACOLUMBAR REGION 12 X 10 X 4 CM Patient Condition at Discharge: Good Plan - Discharge Summary Discharge Rx Participant: No New Discharge Prescriptions: New Magnesium Hydroxide [Milk of Magnesia] 2,400 mg PO DAILY PRN ml PRN Reason: Constipation Gabapentin 300 mg PO Q6H #24 cap HYDROcodone/APAP 10-325MG [Meadow 10-325] 1 tab PO Q4HR PRN #18 tab PRN Reason: Pain cefaDROXiL [Duricef] 500 mg PO Q12HR 5 Days #10 cap Ipratropium-Albuterol Nebulize [Duoneb 0.5 mg-3 mg/3 ml Soln] 3 ml INHALATION RT-QID each Continue Montelukast [Singulair] 10 mg PO HS Atorvastatin [Lipitor] 20 mg PO HS Topiramate [Topamax] 50 mg PO HS Insulin Lispro [humaLOG Kwikpen] 10 unit SQ TID-W/MEALS Aspirin EC [Ecotrin Low Dose] 81 mg PO DAILY calcitrioL 0.25 mcg PO SUTH Pantoprazole [Protonix] 40 mg PO AC-BID tab Gabapentin 300 mg PO Q6H Sennosides-Docusate Sodium [Senokot-S] 2 tab PO DAILY PRN PRN Reason: Constipation allopurinoL 100 mg PO DAILY Midodrine HCl [ProAmatine] 10 mg PO TID PRN PRN Reason: LOW BP (HOLD IF SBP >120) Cyanocobalamin (Vitamin B-12) [Vitamin B-12] 1,000 mcg PO DAILY Yuperli 175mcg/3ml 175 mcg INHALATION RT-DAILY Insulin Glargine,Hum.rec.anlog [Lantus Solostar Pen] 30 units SQ HS Ferrous Sulfate [Iron (65 MG Elemental)] 325 mg PO DAILY carvediloL [Coreg] 6.25 mg PO BID Cyclobenzaprine [Flexeril] 5 mg PO Q8H lisinopriL [Zestril] 2.5 mg PO DAILY HYDROcodone/APAP 10-325MG [Meadow 10-325] 1 tab PO Q4H PRN PRN Reason: Pain Discontinued Ipratropium-Albuterol Nebulize [Duoneb 0.5 mg-3 mg/3 ml Soln] 3 ml INHALATION RT-Q6H Meclizine [Antivert] 12.5 mg PO TID PRN PRN Reason: Vertigo Sennosides/Docusate Sodium [Senna Plus 8.6-50 mg Softgel] 1 tab PO DAILY Insulin Lispro [humaLOG Kwikpen] See Protocol SQ ACHS Discharge Medication List Montelukast [Singulair] 10 mg PO HS 11/02/18 [History] Atorvastatin [Lipitor] 20 mg PO HS 09/05/19 [History] Topiramate [Topamax] 50 mg PO HS 09/05/19 [History] Insulin Lispro [humaLOG Kwikpen] 10 unit SQ TID-W/MEALS 02/09/20 [History] Cyanocobalamin (Vitamin B-12) [Vitamin B-12] 1,000 mcg PO DAILY 06/09/22 [History] Midodrine HCl [ProAmatine] 10 mg PO TID PRN 06/09/22 [History] allopurinoL 100 mg PO DAILY 06/09/22 [History] Insulin Glargine,Hum.rec.anlog [Lantus Solostar Pen] 30 units SQ HS 01/07/23 [History] Yuperli 175mcg/3ml 175 mcg INHALATION RT-DAILY 01/07/23 [History] Aspirin EC [Ecotrin Low Dose] 81 mg PO DAILY 03/17/23 [History] Ferrous Sulfate [Iron (65 MG Elemental)] 325 mg PO DAILY 03/17/23 [History] calcitrioL 0.25 mcg PO SUTH 03/17/23 [History] Pantoprazole [Protonix] 40 mg PO AC-BID tab 03/23/23 [Rx] Cyclobenzaprine [Flexeril] 5 mg PO Q8H 04/23/23 [History] Gabapentin 300 mg PO Q6H 04/23/23 [History] HYDROcodone/APAP 10-325MG [Meadow 10-325] 1 tab PO Q4H PRN 04/23/23 [History] Sennosides-Docusate Sodium [Senokot-S] 2 tab PO DAILY PRN 04/23/23 [History] carvediloL [Coreg] 6.25 mg PO BID 04/23/23 [History] lisinopriL [Zestril] 2.5 mg PO DAILY 04/23/23 [History] Ipratropium-Albuterol Nebulize [Duoneb 0.5 mg-3 mg/3 ml Soln] 3 ml INHALATION R T-QID each 04/26/23 [Rx] Magnesium Hydroxide [Milk of Magnesia] 2,400 mg PO DAILY PRN ml 04/26/23 [Rx] Gabapentin 300 mg PO Q6H #24 cap 04/27/23 [Rx] HYDROcodone/APAP 10-325MG [Meadow 10-325] 1 tab PO Q4HR PRN #18 tab 04/27/23 [Rx] cefaDROXiL [Duricef] 500 mg PO Q12HR 5 Days #10 cap 04/27/23 [Rx] Follow up Appointment(s)/Referral(s): Vishal Snell MD [Primary Care Provider] - 1-2 days Jomar Meeks DO [Doctor of Osteopathic Medicine] - 2 Weeks Activity/Diet/Wound Care/Special Instructions: Spine Discharge and Recovery Instructions Date of Surgery: 04/24/2023 Diagnosis: 1. WOUND ULCERATION WITH DEHISCENCE 2. S/P REVISION T9-L2 FOR PROXIMAL FAILURE WITH FRACTURE AFTER FALL 3. COMPLEX MEDICAL PATIENT Procedure: EXCISIONAL DEBRIDEMENT OF SKIN, SOFT TISSUE, MUSCLE AND BONE THORACOLUMBAR REGION 12 X 10 X 4 CM Medications: See medication list All medication refills should be obtained through your primary care doctor or your clinic spine surgeon. Please discuss prescription refills at your follow up appointment. Do not call the hospital for medication refills. Dressing: Leave your dressing in place for a total of 5 days post operatively. Then you may remove your dressing and leave open to air. Keep the area clean and if not able to keep area clean, then cover with sterile gauze and tape. Showering: You may shower 3 days after your procedure allowing soap and water to run over incision. Do not scrub. Do not soak. Blot dry. Follow up: Please confirm a follow up appointment with your surgeon 3 weeks post operatively. Please make an appointment to follow up with your PCP in 1-2 weeks after surgery for evaluation 3 phase, 3-week plan POST OP WEEKS 1-3 1. Lifting/carrying/pushing/pulling limited to less than 5 pounds. 2. Do not sit for longer than 15 minutes at one time. Get up and walk around. Prolonged sitting is NOT advised. If you lay down, see if you can tolerate laying down on you front (belly side) 3. Walk for periods of 15 minutes = 1 mile but no longer; do it multiple times times each day. 4. Ice your low back after activity. POST OP WEEKS 3-6 1. Lifting limited to less than 20 pounds. 2. Do not sit for longer than 30 minutes at a time. Frequently change positions. Use a sit-to stand workstation or take frequent breaks from sitting if you have returned to work. 3. Walk for 30 minutes each day. If possible, do these three or more times a day POST OP WEEKS 6+ At your 6-week appointment we will give you a physical therapy referral to focus on a core stabilization and strengthening program. You should also work on leg & buttock strengthening, hamstring & quadriceps stretching, and continue a low impact aerobic activity program such as swimming, walking, or riding a stationary bicycle. During the initial 6 weeks after your surgery, you are at the highest risk of re-injuring your spine. You should generally avoid BLTs (bending, lifting and twisting combination motions) and follow the above guidelines to reduce the chance of reinjury. You can anticipate post op appointments in our office at approximately 3 weeks and 6 weeks after your surgery. INCISION CARE: If your incision is not draining you do NOT need to cover it with a dressing. Keep your incision clean, dry and intact. In most cases, we apply skin glue, mana or sutures to the incision at the time of surgery. This will be like a crust or have the appearance of a scab and will fall off in time on its own. The stitches or mana need to be removed at 3 weeks post op appointment. You may begin to shower 3 days after surgery (this allows the glue to wahl well). However, please avoid scrubbing the incision site or peeling off any of the skin glue. This will ensure optimal healing of your incision. Also, during this time avoid soaking the incision area in water - this includes swimming pools, hot tubs or baths. No ointments, lotions or oils on the incision until your surgeon allows. Leave mana, sutures or glue in place. Neurological dysfunction that comes on suddenly can also be a sign of a stroke. Below some common symptoms of a stroke are listed: B - balance difficulty such as sudden onset walking or leaning to one side - NEW E - eye problem such as sudden double vision or trouble seeing on one side - NEW F - Facial weakness or numbness on one side - NEW A - Arm or leg weakness or numbness on one side - NEW S - Slurred speech or difficulty with word finding - NEW T - Time is BRAIN! Call 911 as soon as you recognize these symptoms Diet: Consume a regular diet rich in vegetables and lean protein such as chicken or fish. You should consume in a ratio of approximately 20% fats|40% carbohydrates|40%protein. Vegetables, sweet potatoes, brown rice or quinoa are examples of good carbohydrates. Chips, white bread, cookies and sweets/sugar are examples of bad carbohydrates. Limit your bad carbs, go wild with good carbs. "Life's Simple 7" Guidelines as per [place] [employer] These will help you reclaim your life after surgery and cutting machine tender helper in your recovery, keeping in mind your restrictions. (1) Get Active. Physical activity can help people lose weight, control high blood pressure and cholesterol, feel emotionally better, and sleep better. (2) Control Cholesterol. Avoid a diet high in saturated fat, trans fat, & cholesterol. Limit whole milk & cream, ice cream, butter, egg yolks, processed meats (like sausage and hot dogs), and fatty meats. Choose healthy foods that are low in saturated fat, trans fat and cholesterol which include: Fruits and vegetables, fiber rich grain products (like whole grain pasta and brown rice), lean meat such as chicken, fish, nuts, seeds, and legumes. (3) Eat Better. Eat small portions. Shop at the grocery with a list and do not stray from it. Tips for a healthy diet include: Limit sodium intake to less than 1500mg daily, avoid prepackaged, processed, and fast foods, choose a diet rich in fruits, vegetables, and whole grain, high fiber foods, and limit saturated & cholesterol in your diet. (4) Manage Blood Pressure. If you have high blood pressure, you should have a cuff at home so that you can check your blood pressure regularly. Be sure you have a good cuff. An arm one is generally better than a wrist one. Bring the cuff to a doctor's appointment to validate that the measurements that your cuff are taking are accurate. Take your blood pressure twice daily when you are sitting down and relaxing. Record the numbers in a log and bring this log with you to your doctors' appointments. (5) Lose Weight if your BMI is above 25. A healthy BMI is between 19-25. To calculate Your BMI, you may use a Standard BMI Calculator on the NIH BMI website: <www.nhlbi.nih.gov/guidelines/obesity/BMI/bmicalc.htm>. Weigh oneself daily. If you are overweight, set a goal to lose weight. A pound a week loss if needed is a good target. (6) Reduce Blood Sugar. Limit foods and liquids with "added sugars." (Added sugars include sucrose, fructose, glucose, maltose, dextrose, high fructose corn syrup, corn syrup, concentrated fruit juice and honey). (7) Stop Smoking. If you smoke, quitting smoking is one of the best things that you can do for your health. Smoking increases your risk of heart attack, stroke, and peripheral vascular disease, which is a build-up of plaque in your arteries. Please discard all the cigarettes and lighters in your house. Have a plan for what you will do when you have the urge to smoke. Direct and second- hand smoke shortens your life as well as the lives of your family, friends and others around you. For your health and the health of those around you, please consider quitting! Proper Bending Body Mechanics: Maintain a wide stance with one foot slightly in front of the other. Keep your back straight. Bend utilizing the strength in your hips and knees. Do not bend at the waist. Maintain the lifted object at your waist-level close to your body. Avoid lifting weight that causes immediately pain or pain anywhere in the body afterwards. Smoking/Nicotine If there was ever one thing that you could do to increase your overall health, decrease your risk of cardiovascular problems by about 39% the second you make the choice, it is to STOP SMOKING. Your body's most instant gratification is the second you stop smoking. We have all heard the studies, read the articles but it is true, smoking is extremely bad for your overall health, and moreover it is detrimental to your bone health. Nicotine, IN ANY FORM, kills bone cells, prevents your body from healing fractures, and significantly prolongs healing after surgery. In spine surgery specifically, it increases your risk of not healing your bones to create a fusion and increases your risk of having a revision surgery due to this up to 60%. I know it is hard. I know it feels impossible. But there are ways. Take control of your life. We are here to help you through it. And when you are ready, ask us and we can direct you to help if you desire. Use the START Plan to Quit Smoking (please visit the Helpguide.org website listed below for more information): S = Set a quit date. Choose a date within the next 2 weeks, so you have enough time to prepare without losing your motivation to quit. If you mainly smoke at work, quit on the weekend, so you have a few days to adjust to the change. T = Tell family, friends, and co-workers that you plan to quit. Let your friends and family in on your plan to quit smoking and tell them you need their support and encouragement to stop. Look for a quit jessica who wants to stop smoking as well. You can help each other get through the rough times. A = Anticipate and plan for the challenges you'll face while quitting. Most people who begin smoking again do so within the first 3 months. You can help yourself make it through by preparing ahead for common challenges, such as nicotine withdrawal and cigarette cravings. R = Remove cigarettes and other tobacco products from your home, car, and work. Throw away all your cigarettes (no emergency pack!), lighters, ashtrays, and matches. Wash your clothes and freshen up anything that smells like smoke. Shampoo your car, clean your drapes and carpet, and steam your furniture. T = Talk to your doctor about getting help to quit. Your doctor can prescribe medication to help with withdrawal and suggest other alternatives. If you can't see a doctor, you can get many products over the counter at your local pharmacy or grocery store, including the nicotine patch, nicotine lozenges, and nicotine gum. Resources for Quitting Smoking: <https://w .[place].gov/documents/[facility]/Quit_Tobacco_Resources_for_patients_313480_7.pdf> Supplementation: Take recommended dosages of Vitamin D and Calcium to help fortify your bones and help them to heal. See your health maintenance packet for dosages and recommended levels. DVT/VTE prophylaxis: You will be given compression stockings from the hospital. Wear these daily for the first two weeks after surgery. You may take them off at night. You may be prescribed a medication to help thin your blood. Take this as directed. If you are not prescribed this medication, early and frequent ambulation has been shown to be the best prophylaxis to deep vein thrombosis and sequelae related to this event. Discharge Disposition: TRANSFER TO SNF/ECF
--- NOTE | 2023-04-27 10:25 | P.PN ---
Subjective Progress Note Date: 04/27/23 Principal diagnosis: 1. WOUND ULCERATION WITH DEHISCENCE 2. S/P REVISION T9-L2 FOR PROXIMAL FAILURE WITH FRACTURE AFTER FALL 3. COMPLEX MEDICAL PATIENT Patient was seen at bedside this morning lying semirecumbent position with a dressing in place over spine. Patient says she just finished doing breathing treatment. Patient is looking forward to going to [facility] today. Patient says she has been up walking around the room since surgery. Patient says she has not had bowel movement yet, however, patient says she has been passing gas. Patient denies any urinary issues. Patient denies any other issues at this time. Patient denies chest pain, fever, chest breath, nausea, vomiting, change in vision, loss of bowel/neck. Objective - Vital Signs Vital signs: Vital Signs Temp 97.7 F 04/27/23 07:04 Pulse 96 04/27/23 08:10 Resp 17 04/27/23 07:04 BP 103/59 04/27/23 07:04 Pulse Ox 98 04/27/23 07:04 FiO2 Intake & Output 04/26/23 04/27/23 04/27/23 18:59 06:59 18:59 Other: Voiding Method Bedside Commode # Voids 1 - Exam Inspection: dressing present over spine. Dressing change at bedside. Negative for any active drainage. Sutures appear to be well aligned and intact. Negative for any fluctuance. New silver foam dressing placed over incision. Sensation: Equal, symmetric, bilaterally intact throughout the upper and lower extremities. Palpation: moderate TTP diffusely throughout the lumbar spine at midline and on the right and left. Moderate TTP at midline in lower thoracic spine. NTTP throughout rest of exam Range of motion: Patient does have good range of motion bilateral lower extremities on exam. There is referred pain to the low back during hip flexion and extension bilaterally as well as knee flexion bilaterally. Patient has full ROM throughout bilateral upper extremities on exam. Motor: 4-/5 in all major motor groups in bilateral lower extremities on exam. 4+/5 in all major motor groups in bilateral upper extremities Special tests: Negative Homans bilaterally. Negative clonus. Negative Elliott bilaterally Neurovascular: Radial pulses intact, 2+ bilaterally. DP pulses palpable bilaterally. Cap refill under 3 seconds in digits of upper extremities. - Labs CBC & Chem 7: 04/25/23 06:25 04/25/23 06:25 Labs: Abnormal Lab Results - Last 24 Hours (Table) 04/26/23 04/26/23 04/27/23 Range/Units 16:46 20:37 06:12 POC Glucose (mg/dL) 126 H 237 H 131 H (70-110) mg/dL Microbiology - Last 24 Hours (Table) 04/23/23 12:25 Blood Culture - Preliminary Blood 04/23/23 12:10 Blood Culture - Preliminary Blood Assessment and Plan Assessment: 1. WOUND ULCERATION WITH DEHISCENCE 2. S/P REVISION T9-L2 FOR PROXIMAL FAILURE WITH FRACTURE AFTER FALL 3. COMPLEX MEDICAL PATIENT Postop day #3 status post -EXCISIONAL DEBRIDEMENT OF SKIN, SOFT TISSUE, MUSCLE AND BONE THORACOLUMBAR REGION 12 X 10 X 4 CM Plan: 1. Wound ulceration with dehiscence; status post revision T9-L2 for proximal failure with fracture after fall; complex medical patient- surgery performed 04/24/2023excisional debridement of skin, soft tissue, muscle and bone thoracolumbar region 12 x 10 x 4 cm. Patient stable at bedside this morning the dressing in place. New dressing placed over incision. Pain medications needed. PT/OT daily. Weightbearing as tolerated with walker and assistance as needed. Discharge to [facility] for rehab today. 2. Appreciate medical management 3. Pain management - norco; gabapentin; Flexeril 4. DVT prophylaxis - CHADD hose and SCDs 5. GI prophylaxis - senna 6. PT/OT - weightbearing as tolerated with walker and assistance 7. Encourage incentive spirometer use 8. Discharge planning - discharge to [facility] today for rehab Time with Patient: Less than 30
[2023-04-27 11:42] LABS: Glucose,Whole Blood 129 mg/dL (70-110)
[2023-04-27 16:26] LABS: Glucose,Whole Blood 122 mg/dL (70-110)
[2023-04-27 20:42] LABS: Glucose,Whole Blood 168 mg/dL (70-110)
[2023-04-27] MEDS: CEPHALEXIN 500 MG CAP PO SCH (20:46)
--- NOTE | 2023-04-27 22:04 | PN ---
PROGRESS NOTE SUBJECTIVE: We are getting [facility] Dressing is placed over spine. She has just finished DuoNeb breathing treatments, would reinstitute today. No chest pain or shortness of breath. No nausea or vomiting. OBJECTIVE: VITAL SIGNS: Blood pressure 100/59, pulse is 98, respiratory rate 16 to 18, blood pressure is 130/90. HEENT: Normocephalic, atraumatic. CARDIOVASCULAR: S1, S2. LUNGS: Clear. GI: Soft. NEUROLOGIC: Cranial nerves intact. The wound ulceration with dehiscence status post revision T9 and L2 for proximal failure with fracture. Continue pain management. We are going to rehab today. Continue with diabetes medicine, updraft treatments, oxygen at night. Prognosis guarded. MMODL / IJN: [id number] /
[2023-04-28 05:53] LABS: Glucose,Whole Blood 110 mg/dL (70-110)
[2023-04-28 08:38] VITALS: BP 107/68; RESP 17; TEMP 98.4
--- NOTE | 2023-04-28 09:06 | P.PN ---
Progress Note - Text Progress Note Date: 04/28/23 Postoperative day #4 status post incision with irrigation and debridement thoracolumbar wound with complex closure Patient was not discharged to subacute rehab yesterday due to insurance issues. Patient remained stable at bedside this morning, she is having minimal discomfort. Patient's dressing remains clean, dry and intact. Patient's physical exam remains unchanged, she is moving all extremities well with no difficulties. She is eager to return back to rehab with plan for therapy. Aw ernie case management recommendations on possible discharge today.
[2023-04-28] MEDS: MAGNESIUM HYDROXIDE 2,400 MG/30 ML CUP PO PRN (09:08)
[2023-04-28 09:45] VITALS: PULSE 92
== END 2023-04-28 10:43 | DRG 908 ==
LOC: EC 10:44 → 4SSUR 12:46
PROVIDERS: ADMIT Orthopaedic Surgery; ATTEND Orthopaedic Surgery
PROC: 0PB40ZZ Excision of Thoracic Vertebra, Open Approach (ICD-10-PCS; principal; 2023-04-24 07:30)
DX: T81.89XA Other complications of procedures, not elsewhere classified, initial encounter (principal); I13.0 Hypertensive heart and chronic kidney disease with heart failure and stage 1 through stage 4 chronic kidney disease, or unspecified chronic kidney disease; I50.32 Chronic diastolic (congestive) heart failure; L03.312 Cellulitis of back [any part except buttock and flank]; T81.42XA Infection following a procedure, deep incisional surgical site, initial encounter; T81.31XD Disruption of external operation (surgical) wound, not elsewhere classified, subsequent encounter; R79.9 Abnormal finding of blood chemistry, unspecified; Y84.8 Other medical procedures as the cause of abnormal reaction of the patient, or of later complication, without mention of misadventure at the time of the procedure; N18.30 Chronic kidney disease, stage 3 unspecified; E11.22 Type 2 diabetes mellitus with diabetic chronic kidney disease; E78.5 Hyperlipidemia, unspecified; F32.A Depression, unspecified; F41.9 Anxiety disorder, unspecified; I27.20 Pulmonary hypertension, unspecified; M19.90 Unspecified osteoarthritis, unspecified site; Z87.01 Personal history of pneumonia (recurrent); K21.9 Gastro-esophageal reflux disease without esophagitis; E11.42 Type 2 diabetes mellitus with diabetic polyneuropathy; Z87.440 Personal history of urinary (tract) infections; Z87.442 Personal history of urinary calculi; M10.9 Gout, unspecified; D64.9 Anemia, unspecified; M41.9 Scoliosis, unspecified; Z90.710 Acquired absence of both cervix and uterus; Z90.49 Acquired absence of other specified parts of digestive tract; M51.36 Other intervertebral disc degeneration, lumbar region; Z79.4 Long term (current) use of insulin; Z79.82 Long term (current) use of aspirin; Z79.899 Other long term (current) drug therapy; Z96.653 Presence of artificial knee joint, bilateral; Z98.1 Arthrodesis status
CPT/HCPCS: 36415; 71046; 80048; 80053; 83605; 85025; 85610; 85730; 87040; 94640; 99285

== ENCOUNTER → 2023-08-05 | Outpatient (CLI) | payer MEDICARE, OTHER ==
--- NOTE | 2023-08-06 14:11 | MM ---
Reason for Exam: Screening (asymptomatic). Last mammogram was performed 1 year(s) and 4 month(s) ago. Patient History: Menarche at age 9. First Full-Term at age 22. Left ovary removed at age 42. Right ovary removed at age 42. Hysterectomy at age 42. Postmenopausal. Patient used Estrogen for 1 year. Hormonal Contraceptives, from age 16 until age 19. 2009, Benign Stereotactic Core Biopsy on the left side. 04/14/2019, Benign Core Biopsy on the right side. Risk Values: Michelle 5 year model risk: 2.5%. NCI Lifetime model risk: 8.1%. Prior Study Comparison: 04/16/2020 Bilateral Screening Mammogram, [facility]. 04/18/2021 Bilateral Screening Mammogram, [facility]. 04/23/2022 Bilateral MG 3D screening mammo w/cad, [facility]. Tissue Density: The breasts are almost entirely fatty. Findings: Analyzed By CAD. Right breast: There is no suspicious group of microcalcifications or new suspicious mass. Benign-appearing calcifications right breast. Left breast: There is no suspicious group of microcalcifications or new suspicious mass. Benign-appearing calcifications left breast. Left breast biopsy clip. Right breast: There is no suspicious group of microcalcifications or new suspicious mass. Benign-appearing calcifications right breast. Left breast: There is no suspicious group of microcalcifications or new suspicious mass. Benign-appearing calcifications left breast. Overall Assessment: Benign, BI-RAD 2 Management: Screening Mammogram of both breasts in [address] [facility] will attempt to contact patient to return for supplemental views and ultrasound if indicated. Patient should continue monthly self-breast exams. A clinical breast exam by your physician is recommended on an annual basis. This exam should not preclude additional follow-up of suspicious palpable abnormalities. Note on Michelle scores and lifetime risk: 1. A Michelle score greater than 3% is considered moderate risk. If this is the case, consider specialist referral to assess eligibility for a risk reducing agent. 2. If overall lifetime risk for the development of breast cancer is 20% or higher, the patient may qualify for future screening with alternating mammogram and breast MRI. Electronically signed and approved by: Carlos Lee DO
== END | disposition home or self-care (01) ==
LOC: RADMAMWWP 10:58
PROVIDERS: ATTEND Surgery
DX: Z12.31 Encounter for screening mammogram for malignant neoplasm of breast (principal); Z78.0 Asymptomatic menopausal state
CPT/HCPCS: 77063; 77067

== ENCOUNTER → 2023-08-27 | Outpatient (CLI) | payer MEDICARE, OTHER ==
--- NOTE | 2023-08-29 19:06 | BD ---
EXAMINATION TYPE: Axial Bone Density DATE OF EXAM: 08/27/2023 CLINICAL HISTORY: 67 years old Female. ICD-10 CODE: M81.0 AGE-RELATED OSTEOPOROSIS Height: 62in Weight: 184lb FRAX RISK QUESTIONS: History of Fracture in Adulthood: yes Secondary Osteoporosis: 3. Menopause before 45: yes RISK FACTORS HISTORY OF: Spine Fracture: yes, thoracic When: 2023 Surgery to Spine/Hip(right/left)/Wrist (right/left): yes, cervical thru lumbar with hardware When: 3760-4145 MEDICATIONS: EXAM MEASUREMENTS: Bone mineral densitometry was performed using the Aductions System. Bone mineral density about the R hip (g/cm2): 0.843 Bone mineral density about the L hip (g/cm2): 0.869 T Score values are as follows: -----R Neck: -1.9 -----L Neck: -1.5 -----R Total: -1.3 -----L Total: -1.1 Z Score values are as follows: -----R Neck: -0.7 -----L Neck: -0.3 -----R Total: -0.4 -----L Total: -0.1 Bone mineral density has: Decreased -6.2% since study of: 02-19-16 FRAX%s: The graph provided illustrates a 16.8% chance for a major osteoporotic fx and a 2.7% chance f or the hips probability for fx in 10 years time. IMPRESSION: Osteopenia (T Score between -2.5 and -1). There is slightly increased risk of fracture and the patient may be considered for treatment. Re-Screen 2-5 years. NOTE: T-SCORE=SD OF THE YOUNG ADULT MEAN.
== END | disposition home or self-care (01) ==
LOC: RADBDWWP 12:57
PROVIDERS: ATTEND Internal Medicine Rheumatology
DX: Z13.820 Encounter for screening for osteoporosis (principal); M81.0 Age-related osteoporosis without current pathological fracture; M85.89 Other specified disorders of bone density and structure, multiple sites; Z78.0 Asymptomatic menopausal state
CPT/HCPCS: 77080

== ENCOUNTER → 2023-09-02 | Outpatient (CLI) | payer MEDICARE, OTHER ==
--- NOTE | 2023-09-02 15:40 | P.PN ---
Subjective Progress Note Date: 09/02/23 Principal diagnosis: fibrocystic breast disease 03/14/22 Principal diagnosis: fibrocystic breast changes ultrasound left breast 08-19-21/ probable resolving hematoma lump left breast fibrocystic breast changes Yani is a 65-year-old white female seen in consultation for DR. Vishal Snell on 04-13-19 regarding an abnormal finding on routine screening mammogram performed on 474285 she was noted to have focal asymmetry in the upper outer quadrant of the right breast. Additional views were recommended. Additional views of the right breast were performed on 1719 which showed a persistent 6 mm focal asymmetry. She subsequently underwent an ultrasound of the right breast on the same day which did not reveal any sonographic correlate. She is status post left breast core biopsy in 2010 which was a benign cyst. She underwent a stereotactic core biopsy of the area of concern on . This was benign breast with fibrocystic changes and prominent adipose tissue. It was reviewed with radiology and felt to be benign specific. At this time she has a repeat right breast mammogram performed [id number] which is felt to be benign BIRADS 2. She had a bilateral mammogram on 04-16-20 which was benign BIRAD 1. She does not feel any lumps masses or skin changes in her breasts. She has no nipple discharge for which she is concerned. She has no complaint of any recent trauma or infection in the breast. She is complaining of a nodule in her left breast. It has been present about 1 month. She is not complaining of any nipple discharge or skin changes. She states the nodule has not changed in size. She does have a bruise at that site, she has a new dog which did jump on her breast. Her last bilateral mammogram was on 04-18-21 which was a bilateral 3-D mammogram and felt to be benign BIRADS 2. The mammograms were personally reviewed. 09-12-21 The patient had a left breast ultrasoud done on 08-19-21; findings were consistent with most likely a resolving hematoma. The patient states the area has completely resolved and at this time she does not feel anything of concern. This was considered a probably benign BIRADS 3 and diagnostic ultrasound of the left breast in 3 months was recommended. Patient's recent blood work revealed low platelets and she is scheduled to see a demand equipment repairer on 8221. 03-14-22 Patient states that the area of concern in the breast has completely resolved at this time. She had an ultrasound of the left breast in 1522. This revealed resolution of the previous lesion at 9:00. The bruising and palpable abnormality have resolved. Findings suggest interval involution of previous posttraumatic hematoma. Incidental borderline enlarged but benign-appearing lymph node was noted. This was a benign BIRADS 2. Screening mammogram of both breast in 1 month was recommended. Michelle Risk 5 year risk: 2.5% lifetime risk: 8.4% Patient has declined chemoprevention. 09-02-23 Bilateral mammogram on 08-05-23 personally reviewed and interpreted; BIRAD 2 Michelle Risk 2.5% NCI lifetime risk 8.1%; she declined chemoprophylaxis The patient in March of 2023 Fx her back, she had surgery and uses a walker She has no complaints related to her breast, no lumps masses or nodules of concern. She has lost almost 100 pounds in the past year. F Her kidney failure has improved caffiene: 1 cups/day nicotine: none chocolate: occasional hormones: none Family History: mother: ovarian, cervical cancer from this father: stomach brother: lung sister: 6th bout of cancer, colon maternal uncle: two brain, and lung cancer Hormonal History: menarche: 7 , breast fed: no, first born at 22 menopause: 38, hysterectomy at 38 took both ovaries BCP: 1 year hormones: none Surgical History: 1. two C sections 2. bilateral vein stripping 3. bilateral knee replacement 4. gallbladder 5. 4 lithotripsy 6. kidney surgery for stones 7. 4 back surgeries 8. cataract surgery pending, as well as pacemaker replacement and back surgery 9. neck surgery 10. back surgery Medical History: 1. CHF 2. renal failure 3. GERD 4. sepsis/ 2014 from UTI 5. diabetes 6. migraines 7. hypotension 8. pneumonia in the past 9. thrombocytopenia Social History: smoke: none alcohol: none drugs: none - Constitutional Constitutional: Reports sweats - EENT Comment: beginning of cataracts Ears: deny: decreased hearing, tinnitus Ears, nose, mouth and throat: Reports headache - Breasts Breasts: bilateral: as per HPI - Cardiovascular Comment: CHF, pacemaker for bradycardia - Respiratory Comment: asthma, bronchitis, pneumonia five times - Gastrointestinal Comment: GERD - Genitourinary (Female) Genitourinary: Reports kidney stones - Menstruation Menstruation: Reports post hysterectomy - Musculoskeletal Comment: arthritis - Integumentary Integumentary: Denies pruritus, Denies rash - Neurological Comment: neurapathy in feet Neurological: Reports numbness, Denies weakness - Psychiatric Psychiatric: Reports anxiety, Reports depression - Endocrine Comment: diabetes - Hematologic/Lymphatic Comment: being followed by a thoracic surgeon ? Aneurysm, aspirin, low platelet count as per kidney MD - Allergic/Immunologic Allergic/Immunologic: Reports as per HPI Objective - Constitutional General appearance: Present: cooperative - EENT Eyes: Present: EOMI ENT: Present: hearing grossly normal - Neck Neck: Present: normal ROM - Respiratory Respiratory: bilateral: CTA - Cardiovascular Heart sounds: normal: S1, S2 - Musculoskeletal Musculoskeletal Comment(s): uses a walker - Psychiatric Psychiatric: Present: A&O x's 3, appropriate affect, intact judgment & insight - Additional findings Additional findings: Breast Exam: Bra: 40DD Inspection: bilateral grade 3 ptosis palpation: right breast: Multi positional exam fibrocystic changes no dominant masses or nodules of concern Right axilla: No adenopathy of concern Left breast: Multi positional exam fibrocystic changes no dominant masses or nodules of concern Left axilla: No adenopathy of concern Assessment and Plan Assessment: Impression: 1. CHF 2. renal failure 3. GERD 4. sepsis/ 2014 from UTI 5. diabetes 6. migraines 7. hypotension 8. pneumonia in the past 9. thrombocytopenia 10. fibrocystic breast changes 11. bilateral mammogram on 08-05-23 BIRAD 2; Michelle risk 5 year 2.5% declined chemoprophylaxis Plan: bilateral mammogram in July 2024 with appointment at that time followup sooner any concerns CC: Dr. Vishal Chavis
[2023-09-02 15:45] VITALS: BP 92/58; PULSE 75; RESP 18; TEMP 97.9
== END ==
LOC: WWCWWP 14:35
PROVIDERS: ATTEND Surgery
DX: N60.11 Diffuse cystic mastopathy of right breast (principal); N60.12 Diffuse cystic mastopathy of left breast; I95.9 Hypotension, unspecified; I50.9 Heart failure, unspecified; E11.9 Type 2 diabetes mellitus without complications; K21.9 Gastro-esophageal reflux disease without esophagitis; A41.9 Sepsis, unspecified organism; R65.20 Severe sepsis without septic shock; D69.6 Thrombocytopenia, unspecified; N17.9 Acute kidney failure, unspecified; G43.909 Migraine, unspecified, not intractable, without status migrainosus; N64.89 Other specified disorders of breast; Z87.440 Personal history of urinary (tract) infections; Z87.01 Personal history of pneumonia (recurrent); Z79.899 Other long term (current) drug therapy; Z79.4 Long term (current) use of insulin

== ENCOUNTER → 2023-10-16 | Outpatient (CLI) | payer MEDICARE, OTHER ==
--- NOTE | 2023-11-06 14:05 | CT ---
Patient: Yani Feldman A Ordering Physician: Unknown, Unknown ID: [id number] Phone, Pager: Phone: N/A Pager: N/A : [phone] Age/Gender: 67Y, F Primary Location: N/A Procedure: CT CHEST WO CONTRAS T Study Date: 10/16/2023 1:22:00 PM EXAMINATION TYPE: CT chest wo con CT DLP: 459 mGycm, Automated exposure control for dose reduction was used. DATE OF EXAM: 10/24/2023 11:14 AM COMPARISON: 10/10/2022 CLINICAL INDICATION: Thoracic aneurysm TECHNIQUE: Multiple axial images were obtained through the chest. Sagittal and coronal reformats were created for review. Contrast used: mL of (None if empty) Oral contrast used: (None if empty) FINDINGS: LUNGS/ PLEURA: No pneumothorax or pleural effusion. Streaky atelectasis in the posterior aspect of th e right upper lung versus airspace consolidation. AIRWAY: Patent and unremarkable. HEART: Mildly enlarged size heart with conduction leads terminating in the right which correlate atri um and coronary sinus. Moderate to severe coronary atherosclerosis. MEDIASTINUM: No gross evidence of adenopathy. VASCULATURE: No aortic aneurysm. Ascending thoracic aorta is within normal limits for size measuring 39 mm. The descending aorta within normal limits for size. Pulmonary trunk dilation up to 30 mm. MUSCULOSKELETAL: No acute osseous abnormalities, postsurgical changes spine with hardware in place. H ardware appears intact. Degeneration changes of the spine with osteophyte formation disc space narrow ing and facet joint arthropathy. SOFT TISSUES/LYMPH NODES: Unremarkable. LOWER NECK: No significant findings. UPPER ABDOMEN: Surgical clips project over the left kidney. The gallbladder surgically absent. IMPRESSION: 1. No evidence for aortic aneurysm. 2. Pulmonary hypertension. 3. Right upper lung posterior mild airspace opacities correlate for pneumonia 4. Mild cardiomegaly. 5. Moderate to severe coronary artery atherosclerosis. Follow up recommendations for incidental pulmonary nodules, if there are any, are per [employer] [employer] or [employer] [employer]. https://radiopaedia.org/articles/ritykyijcd-[email or web address]?lang=us
== END | disposition home or self-care (01) ==
LOC: RADCTMAIN 13:01
PROVIDERS: ATTEND Thoracic Surgery (Cardiothoracic Vascular Surgery)
DX: I71.20 Thoracic aortic aneurysm, without rupture, unspecified (principal); I27.20 Pulmonary hypertension, unspecified; I25.10 Atherosclerotic heart disease of native coronary artery without angina pectoris; R91.8 Other nonspecific abnormal finding of lung field
CPT/HCPCS: 71250

== ENCOUNTER → 2023-12-11 | Outpatient (CLI) | payer MEDICARE, OTHER ==
--- NOTE | 2023-12-18 10:05 | US ---
EXAMINATION TYPE: US kidneys/renal and bladder DATE OF EXAM: 12/11/2023 COMPARISON: CT CLINICAL INDICATION: Female, 68 years old with history of N20.0 CALCULUS OF KIDNEY; Pt states history of renal stones TECHNIQUE: Grayscale and color Doppler imaging of the bilateral kidneys and urinary bladder: FINDINGS: EXAM MEASUREMENTS: Right Kidney: 11.9 x 4.4 x 4.2 cm Left Kidney: 10.9 x 5.1 x 4.4 cm Right Kidney: Cortical thinning, no evidence of hydro, hypoechoic lesion upper pole= 1.5 x 1.2 x 1.6 cm Left Kidney: Loss of cortical/medullary differentiation, cortical thinning, no evidence of hydro, pos sible solid lesion upper pole= 2.7 x 1.8 x 2.4 cm, cyst mid= 2.8 x 1.7 x 2.3 cm Bladder: wnl Bilateral Jets seen: No There is no evidence for hydronephrosis at this point in time. No nephrolithiasis is seen. The urin zuly bladder is anechoic. Bilateral ureteral jets are seen. IMPRESSION: I cannot exclude a solid lesion upper pole left kidney. CT is recommended for further evaluation. Maury al cortical thinning and cysts also seen. [facility], , 12/18/2023 10:03 AM
== END | disposition home or self-care (01) ==
LOC: RADUSWWP 16:06
PROVIDERS: ATTEND Urology
CPT/HCPCS: 76770

== ENCOUNTER → 2024-02-02 | Outpatient (CLI) | payer MEDICARE, OTHER ==
--- NOTE | 2024-02-02 14:01 | CT ---
EXAMINATION TYPE: CT abdomen wo con CT DLP: 783.2 mGycm, Automated exposure control for dose reduction was used. DATE OF EXAM: 02/02/2024 1:42 PM COMPARISON: Ultrasound 12/11/2023, CT thoracolumbar spine 03/20/2023, CT chest 11/06/2023, CT chest abdo men pelvis 06/14/2022 CLINICAL INDICATION:Female, 68 years old with history of N28.89 Renal mass; renal mass TECHNIQUE: Standard CT of the abdomen without IV or oral contrast. Lack of IV or oral contrast limi ts evaluation of solid and hollow organ viscera. Coronal and sagittal reformats were performed. FINDINGS: LOWER CHEST: Shows lung bases are clear. Cardiomegaly. Moderate coronary arterial calcifications. Car diac pacemaker leads identified. No sizable pericardial effusion. ABDOMEN LIVER: Surface nodularity to the liver without focal lesion identified within limitations of a noncon trast exam. GALLBLADDER AND BILE DUCTS: The gallbladder is surgically absent. No biliary ductal dilatation. PANCREAS: Unremarkable noncontrast appearance SPLEEN: Bulky appearance. ADRENAL GLANDS: Unremarkable noncontrast appearance. KIDNEYS AND URETERS: No evidence of hydronephrosis or renal calculus. Surgical clips identified with in the superior pole of the left kidney which creates streak artifact which limits evaluation. Left m id kidney 2.3 cm hypodense cyst. There is a hypodense left upper pole 2.2 cm lesion with Hounsfield u nit consistent with a cyst. Grossly stable from prior CT 2022. Subtle hypodense lesion within the sup erior pole of the right kidney measuring 1.6 cm corresponding to previously seen cyst. STOMACH AND BOWEL: Stomach and duodenum are unremarkable. No evidence of bowel obstruction. PERITONEUM: No evidence of pneumoperitoneum or free fluid. VASCULATURE: Mild to moderate atherosclerotic calcifications are present throughout the abdominal aor ta and its branches. No evidence of aortic aneurysm. MUSCULOSKELETAL: No acute osseous abnormalities. Extensive postsurgical changes of the thoracolumbar spine redemonstrated. LYMPH NODES: No evidence for lymphadenopathy. SOFT TISSUE/ABDOMINAL WALL: Unremarkable IMPRESSION: 1. Significantly limited evaluation due to lack of intravenous contrast. Additionally there is strea k artifact from postsurgical changes involving the superior pole of the left kidney which limits eval uation. Probable bilateral renal cysts based on CT attenuation. 2. Findings concerning for hepatic cirrhosis. Correlate with liver function tests. 3. Cardiomegaly. [facility], , 02/02/2024 1:59 PM
== END | disposition home or self-care (01) ==
LOC: RADCTMAIN 13:13
PROVIDERS: ATTEND Urology
DX: N28.89 Other specified disorders of kidney and ureter (principal); I51.7 Cardiomegaly; K74.60 Unspecified cirrhosis of liver; I70.0 Atherosclerosis of aorta; N28.1 Cyst of kidney, acquired
CPT/HCPCS: 74150

== ENCOUNTER → 2024-02-04 | Outpatient (CLI) | payer MEDICARE, OTHER ==
[2024-02-04 10:39] VITALS: BP 129/78; PULSE 74; RESP 16; TEMP 96.9
--- NOTE | 2024-02-04 15:22 | P.PAINPG ---
PQRS Measure Charge Sheet Comment: HISTORY OF PRESENT ILLNESS: A 68 yr old female as a referral from Dr Meeks presents today w severe and chronic LBP > 5 yrs secondary to [id number] decompression/ fusion, BL Sacroiliitis for evaluation. Pt states pain level is provoked at 9 /10 in intensity, intermittent, localized in the lumbar spine, predominantly axial, sharp in character w occasional shooting pain towards the hip, buttocks and LEs. Pain is provoked by sitting/ over activity for periods > 10 min. Pain is alleviated by PT intergrated w massage x 4 wks which she is currently in, physician guided home stretches daily since Nov 2023, heat, ice, medications ([place]), topical Lidoderm, repositioning and rest . Oswestry axial pain score at 30. PMH: OA, Asthma, NIDDM II, GERD, Hyperlipidemia, Renal Disease, CARLOS, PVD, Gout, CKD III, Nephrolithiasis, MDD/ Anxiety PSH: Lithotripsies, BL CTR, Appendectomy, L3-L4 Fusion, Laminectomies (2020), Cervical Fusion (2022), Cardiac Ablation, Section, Cholecystectomy, Heart Catheterization, Hysterectomy, Joint Replacement, R Knee Arthroscopy, BL Total Knee Arthroplasty, D&C, Permanent Pacemaker (2020), AICD, Colonoscopy, BL Cataract Extraction SH: Negative x3 FH: Fa- Stomach CA. Bro- Lung CA. Sis- Pancreatic CA. Mo- Ovarian/ Cervical CA All: See list Meds: See list REVIEW OF ORGAN SYSTEMS: CONSTITUTIONAL: No fevers or chills. No recent weight loss. NEUROLOGICAL: + numbness and tingling along the distal extremities. No seizure disorders or headaches. MUSCULOSKELETAL: + pain PSYCHIATRIC: Denies current depression or suicidal thoughts. Physical Examinations : Constitutional : Cooperative , not in acute distress . Neurologic : Cranial nerve II to XII intact. No focal neurological deficits. Psychiatric : alert & oriented x 3. Matching mood & appropriate affect. Judgment & insight intact. Musculoskeletal : Cervical Spine Motor strength in the deltoid and biceps: Normal right side. Normal Left side Motor strength biceps and the wrist extensors: Normal right side . Normal left side Motor strength in the triceps muscle: Normal right side. Normal left side Deep tendon reflexes: Normal at the biceps. Normal at Brachioradialis. Normal at triceps Vertebral body tenderness to deep palpation over Cervical facet loading test: positive bilaterally Spurling test: positive bilaterally Neck distraction test: positive bilaterally Elliott sign: positive bilaterally Lumbar spine Motor strength lower extremities ,thigh and legs 5/5 Right side , 5/5 Left side Deep tendon reflexes : Normal Knee Jerk. Normal Ankle Jerk Vertebral body tenderness over Werner Test positive Lumbar facet Loading Test: positive Right / positive Left Range of motion of the lumbar spine Flexion 30 degrees, extension 10 degrees Straight Leg Raise test: Left/ Right positive at degrees Trena test: positive right / positive left. Severe tenderness over the Sacroiliac joint on the Right / Left sides Gaenslen test: positive bilaterally Seated flexion test: positive bilaterally. Sacral spine : Severe tenderness over the Sacroiliac joint: right side / left side Range of motion: Flexion of the lumbar spine <60 degrees Range of motion: Extension of the lumbar spine <20 degrees Gaenslen's Test positive BL Trena test: positive right side / left side Thigh Thrust Test BL positive Sacral Thrust Test Imaging: CT non contrast lumbar spine from 03/20/23 reviewed Assessment/ Plan : BL Sacroiliitis, [id number] decompression/ fusion Recommendation of BL SI injection #1. Risks, benefits of procedure discussed and patient verbalized understanding. Admits to anti- coagulant use or medical history of diabetes. Protocol for discontinuation/ continuation of medications kari procedure discussed. All questions answered. I have spent greater than 30 minutes on patient care today. Dr Cedeno was available by phone for the evaluation of this patient. The time was used to review the medical records including relevant urine studies and Prescription history (MAPs), review of the available imaging, evaluation and examination of the patient, coordination of care with the medical staff and if applicable referring physicians, as well as creation of the medical record PQRS Narrative: Smoking Status Never smoker Hx Alcohol Use (MH) No Home Medications: Ambulatory Orders Montelukast [Singulair] 10 mg PO HS 11/02/18 Atorvastatin [Lipitor] 20 mg PO HS 09/05/19 Topiramate [Topamax] 50 mg PO HS 09/05/19 Insulin Lispro [humaLOG Kwikpen] 10 unit SQ TID-W/MEALS 02/09/20 Cyanocobalamin (Vitamin B-12) [Vitamin B-12] 1,000 mcg PO DAILY 06/09/22 Midodrine HCl [ProAmatine] 10 mg PO TID PRN 06/09/22 allopurinoL 100 mg PO DAILY 06/09/22 Insulin Glargine,Hum.rec.anlog [Lantus Solostar Pen] 30 units SQ HS 01/07/23 Yuperli 175mcg/3ml 175 mcg INHALATION RT-DAILY 01/07/23 Aspirin EC [Ecotrin Low Dose] 81 mg PO DAILY 03/17/23 Ferrous Sulfate [Iron (65 MG Elemental)] 325 mg PO DAILY 03/17/23 calcitrioL 0.25 mcg PO SUTH 03/17/23 Pantoprazole [Protonix] 40 mg PO AC-BID tab 03/23/23 Cyclobenzaprine [Flexeril] 5 mg PO Q8H 04/23/23 Gabapentin 300 mg PO Q6H 04/23/23 HYDROcodone/APAP 10-325MG [[place] 10-325] 1 tab PO Q4H PRN 04/23/23 Sennosides-Docusate Sodium [Senokot-S] 2 tab PO DAILY PRN 04/23/23 carvediloL [Coreg] 6.25 mg PO BID 04/23/23 lisinopriL [Zestril] 2.5 mg PO DAILY 04/23/23 Ipratropium-Albuterol Nebulize [Duoneb 0.5 mg-3 mg/3 ml Soln] 3 ml INHALATION RT-QID each 04/26/23 Magnesium Hydroxide [Milk of Magnesia] 2,400 mg PO DAILY PRN ml 04/26/23 Gabapentin 300 mg PO Q6H #24 cap 04/27/23 HYDROcodone/APAP 10-325MG [[place] 10-325] 1 tab PO Q4HR PRN #18 tab 04/27/23 cefaDROXiL [Duricef] 500 mg PO Q12HR 5 Days #10 cap 04/27/23 Omeprazole 20 mg PO DAILY 09/02/23 Controlled Substance Measures - Controlled Substance Measures Is patient prescribed a controlled substance at discharge?: No
== END ==
LOC: PNWHC3 10:09
PROVIDERS: ATTEND Specialist
DX: M54.16 Radiculopathy, lumbar region (principal); M46.1 Sacroiliitis, not elsewhere classified; M43.24 Fusion of spine, thoracic region
CPT/HCPCS: 99211

== ENCOUNTER 2024-03-04 10:43 | Day surgery (SDC) | payer MEDICARE, OTHER ==
[2024-03-04] MEDS ORDERED: LACTATED RINGERS 1,000 ML IV SCH (11:45)
[2024-03-04 11:47] VITALS: TEMP 97
[2024-03-04 12:46] LABS: Glucose,Whole Blood 130 mg/dL (70-110)
[2024-03-04] MEDS ORDERED: methylPREDNISolone ACETATE 40 MG/ML 1 ML VIAL ONE (12:49)
[2024-03-04] MEDS ORDERED: ROPIVACAINE 5MG/ML 20ML VIAL ONE (12:49)
[2024-03-04] MEDS ORDERED: IOPAMIDOL M200 10 ML VIAL ONE (12:49)
--- NOTE | 2024-03-04 12:58 | P.PCN ---
Date of Procedure: 03/04/24 Procedure(s) Performed: Procedure= bilateral sacroiliac joints steroid injection under fluoroscopy guidance (fluoroscopy image stored on file in the radiology Department ) Preoperative diagnosis= 1-bilateral sacroiliitis. Postoperative diagnosis=Same as preop Diagnosis . Complication = none Condition= stable Anesthesia= local anesthesia with ropivacaine 0.5% 4 ml only Indication for the procedure= patient complaining of low back pain , examination was positive for severe tenderness over the sacroiliac joints bilaterally and patient diagnosed with sacroiliitis, for this reason she was good candidate for sacroiliac joint steroid injection. Description of the procedure= procedure risk and benefits discussed with the patient, including but not limited, risk of infection and bleeding, and ALLERGIC reaction to the medication and not complete pain relief and patient agreed with the preceding patient taken to the operating room, placed in prone position or standard monitors applied to the patient then after induction of anesthesia back prepped with chlorhexidine 3 times , Then under strict sterile technique, first I did the right sacroiliac joint the which was identified under fluoroscopy guidance been local infiltration of the skin and subcu interstitial with lidocaine 1% then 22-gauge Quincke Needle advanced slowly under fluoroscopy and placed in the right sacroiliac joint needle placement confirmed with AP and oblique and lateral view, then after that Isovue 200 one mL injected which confirmed the correct needle placement with the appropriate arthrogram of the sacroiliac joint, and after appropriate needle placement confirmed and after negative aspiration, or heme , then Ropi vacaine 0.5% 2 mL, and 20 mg of Depo-Medrol mixed together and injected in the right sacroiliac joint after negative aspiration patient tolerated the procedure well without any complication. Then the left sacroiliac joint steroid injection done under strict sterile technique local infiltration of the skin and subcu interstitial at the location of the left sacroiliac joint then a 22-gauge Qu[place]ke Needle advanced slowly under fluoroscopy time placed in the left sacroiliac joint, needle placement confirmed with AP and oblique and lateral view then after appropriate needle placement confirmed, with the AP and oblique and lateral then after negative aspiration Isovue 200 1 mL injected showed arthropathy of the left sacroiliac joint, and after negative aspiration 0.5% Ropivacaine 2 mL and 20 mg of Depo- Medrol injected in the left sacroiliac joint after negative aspiration patient tolerated the procedure well that any complications and she will follow up in clinic 3 weeks
--- NOTE | 2024-03-04 13:17 | FL ---
EXAMINATION TYPE: FL guided pain mgmt statistic DATE OF EXAM: 03/04/2024 FLUOROSCOPY FL 6.3 DAP [id number] SI JOINT INJECTION 2 images are submitted. [facility], , 03/04/2024 1:14 PM
[2024-03-04 13:26] VITALS: BP 124/74; PULSE 59; RESP 18
== END 2024-03-04 13:29 | disposition home or self-care (01) ==
LOC: ORPAIN 10:43
PROVIDERS: ATTEND Specialist
DX: M46.1 Sacroiliitis, not elsewhere classified (principal)
CPT/HCPCS: Q9966; J2795; J1010; G0260

== ENCOUNTER 2024-03-13 04:53 | Inpatient (IN) | payer MEDICARE, OTHER ==
--- NOTE | 2024-03-13 04:58 | ED ---
Neuro HPI - General Stated Complaint: Stroke Time Seen by Provider: 03/13/24 04:56 Source: RN notes reviewed, old records reviewed Mode of arrival: ambulatory - History of Present Illness Is the patient presenting with stroke symptoms?: Yes -: hour(s) Initial Comments: This is a 68-year-old female to the ER for evaluation. Patient having difficulty with sleep slurred speech weakness right arm weakness right leg weakness again persistent slurred speech, no blood thinners Location: speech, left face, right arm, right leg, ataxia, altered History of same: Yes Place: home Severity: moderate Quality: constant Improves With: none Worsens With: none Context: sudden onset Associated Symptoms: confusion Treatments Prior to Arrival: none - Related Data Home Medications: Home Medications Medication Instructions Recorded Confirmed Montelukast [Singulair] 10 mg PO HS 11/02/18 03/13/24 Topiramate [Topamax] 50 mg PO HS 09/05/19 03/13/24 Insulin Lispro [humaLOG Kwikpen] 10 unit SQ TID-W/MEALS 02/09/20 03/13/24 Midodrine HCl [ProAmatine] 10 mg PO TID 06/09/22 03/13/24 allopurinoL 100 mg PO HS 06/09/22 03/13/24 Insulin Glargine,Hum.rec.anlog 20 units SQ HS 01/07/23 03/13/24 [Lantus Solostar Pen] Yuperli 175mcg/3ml 175 mcg INHALATION RT-DAILY 01/07/23 03/13/24 Aspirin EC [Ecotrin Low Dose] 81 mg PO DAILY 03/17/23 03/13/24 Ferrous Sulfate [Iron (65 MG 325 mg PO DAILY 03/17/23 03/13/24 Elemental)] calcitrioL 0.25 mcg PO SUWE 03/17/23 03/13/24 HYDROcodone/APAP 10-325MG [[place] 1 tab PO QID PRN 04/23/23 03/13/24 10-325] Cyanocobalamin [Vitamin B-12] 500 mcg PO HS 03/13/24 03/13/24 Docusate 50mg 50 mg PO Q48H 03/13/24 03/13/24 Ergocalciferol (Vitamin D2) 1,250 mcg PO Q14D 03/13/24 03/13/24 [Drisdol (50,000 Iu)] Formoterol Fumarate [Perforomist] 20 mcg INHALATION RT-BID 03/13/24 03/13/24 Gabapentin 300 mg PO BID 03/13/24 03/13/24 Magnesium 500 mg PO HS 03/13/24 03/13/24 Mirabegron [Myrbetriq] 25 mg PO DAILY 03/13/24 03/13/24 Omeprazole 40 mg PO BID 03/13/24 03/13/24 Zinc Gluconate [Zinc] 50 mg PO DAILY 03/13/24 03/13/24 carvediloL 6.25 mg PO BID 03/13/24 03/13/24 tiZANidine [Zanaflex] 2 mg PO BID PRN 03/13/24 03/13/24 Allergies/Adverse Reactions: Allergies Allergy/AdvReac Type Severity Reaction Status Date / Time No Known Allergies Allergy Verified 03/13/24 10:06 Review of Systems ROS Statement: Those systems with pertinent positive or pertinent negative responses have been documented in the HPI. ROS Other: All systems not noted in ROS Statement are negative. General Exam - General Exam Comments Initial Comments: NIH 13 General appearance: alert, in no apparent distress, anxious Head exam: Present: atraumatic, normocephalic, normal inspection Eye exam: Present: normal appearance, PERRL, EOMI. Absent: scleral icterus, con junctival injection, periorbital swelling ENT exam: Present: normal exam, mucous membranes moist Neck exam: Present: normal inspection. Absent: tenderness, meningismus, lymphadenopathy Respiratory exam: Present: normal lung sounds bilaterally. Absent: respiratory distress, wheezes, rales, rhonchi, stridor Cardiovascular Exam: Present: regular rate, normal rhythm, normal heart sounds. Absent: systolic murmur, diastolic murmur, rubs, gallop, clicks GI/Abdominal exam: Present: soft, normal bowel sounds. Absent: distended, tenderness, guarding, rebound, rigid Extremities exam: Present: normal inspection, full ROM, normal capillary refill. Absent: tenderness, pedal edema, joint swelling, calf tenderness Back exam: Present: normal inspection Neurological exam: Present: alert, oriented X3, CN II-XII intact Psychiatric exam: Present: normal affect, normal mood Skin exam: Present: warm, dry, intact, normal color. Absent: rash Stroke MDM - Lab Data Result diagrams: 03/13/24 05:22 03/13/24 05:22 Lab Results 03/13/24 03/13/24 03/13/24 Range/Units 05:22 05:22 05:22 WBC 6.1 (3.8-10.6) k/uL RBC 3.77 L (3.80-5.40) m/uL Hgb 11.8 (11.4-16.0) gm/dL Hct 36.9 (34.0-46.0) % MCV 98.0 (80.0-100.0) fL MCH 31.3 (25.0-35.0) pg MCHC 32.0 (31.0-37.0) g/dL RDW 14.3 (11.5-15.5) % Plt Count 93 L (150-450) k/uL MPV 8.4 Neutrophils % 66 % Lymphocytes % 23 % Monocytes % 6 % Eosinophils % 3 % Basophils % 0 % Neutrophils # 4.1 (1.3-7.7) k/uL Lymphocytes # 1.4 (1.0-4.8) k/uL Monocytes # 0.4 (0-1.0) k/uL Eosinophils # 0.2 (0-0.7) k/uL Basophils # 0.0 (0-0.2) k/uL Hypochromasia Slight PT 12.2 (10.0-12.5) sec INR 1.1 (<1.2) APTT 22.7 (22.0-30.0) sec Sodium 139 (137-145) mmol/L Potassium 4.2 (3.5-5.1) mmol/L Chloride 110 H (98-107) mmol/L Carbon Dioxide 20 L (22-30) mmol/L Anion Gap 9 mmol/L BUN 36 H (7-17) mg/dL Creatinine 1.10 H (0.52-1.04) mg/dL Est GFR (CKD-EPI)AfAm 59 (>60 ml/min/1.73 sqM) Est GFR (CKD-EPI)NonAf 51 (>60 ml/min/1.73 sqM) Glucose 144 H (74-99) mg/dL POC Glucose (mg/dL) (70-110) mg/dL POC Glu Sand Mill Operator Facing 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 ID Calcium 9.2 (8.4-10.2) mg/dL Total Bilirubin 0.4 (0.2-1.3) mg/dL AST 26 (14-36) U/L ALT 15 (4-34) U/L Alkaline Phosphatase 138 H (38-126) U/L Creatine Kinase 50 (30-135) U/L Troponin I (0.000-0.034) ng/mL Total Protein 5.9 L (6.3-8.2) g/dL Albumin 3.5 (3.5-5.0) g/dL 03/13/24 03/13/24 Range/Units 05:22 05:22 WBC (3.8-10.6) k/uL RBC (3.80-5.40) m/uL Hgb (11.4-16.0) gm/dL Hct (34.0-46.0) % MCV (80.0-100.0) fL MCH (25.0-35.0) pg MCHC (31.0-37.0) g/dL RDW (11.5-15.5) % Plt Count (150-450) k/uL MPV Neutrophils % % Lymphocytes % % Monocytes % % Eosinophils % % Basophils % % Neutrophils # (1.3-7.7) k/uL Lymphocytes # (1.0-4.8) k/uL Monocytes # (0-1.0) k/uL Eosinophils # (0-0.7) k/uL Basophils # (0-0.2) k/uL Hypochromasia PT (10.0-12.5) sec INR (<1.2) APTT (22.0-30.0) sec Sodium (137-145) mmol/L Potassium (3.5-5.1) mmol/L Chloride (98-107) mmol/L Carbon Dioxide (22-30) mmol/L Anion Gap mmol/L BUN (7-17) mg/dL Creatinine (0.52-1.04) mg/dL Est GFR (CKD-EPI)AfAm (>60 ml/min/1.73 sqM) Est GFR (CKD-EPI)NonAf (>60 ml/min/1.73 sqM) Glucose (74-99) mg/dL POC Glucose (mg/dL) 142 H (70-110) mg/dL POC Glu Sand [employer] Operator Facing Sand ID [place] Calcium (8.4-10.2) mg/dL Total Bilirubin (0.2-1.3) mg/dL AST (14-36) U/L ALT (4-34) U/L Alkaline Phosphatase (38-126) U/L Creatine Kinase (30-135) U/L Troponin I 0.016 (0.000-0.034) ng/mL Total Protein (6.3-8.2) g/dL Albumin (3.5-5.0) g/dL - NIH Stroke Scale 1a. Level of Consciousness: (1) not alert, arousable 1b. LOC Questions: (1) answers 1 question correctly 1c. LOC Commands: (0) performs tasks correctly 2. Best Gaze: (0) normal 3. Visual: (0) no visual loss 4. Facial Palsy: (1) minor paralysis 5a. Motor Arm Left: (0) no drift 5b. Motor Arm Right: (3) no gravity effort 6a. Motor Leg Left: (0) no drift 6b. Motor Leg Right: (2) some gravity effort 7. Limb Ataxia: (2) present 2 limbs 8. Sensory: (1) mild/moderate sensory loss 9. Best Language: (1) mild/moderate aphasia 10. Dysarthria: (1) mild/moderate dysarthria 11. Extinction/Inattention: (0) no abnormality - Thrombolytic Inclusion/Exclusion Thrombolytic Inclusion Criteria: Symptom Onset < 4.5 h - Medical Decision Making 68 female given tPA for acute code stroke - Radiology Data Radiology results: report reviewed (CT Angio CT brain negative for acute disease), image reviewed - EKG Data -: EKG Interpreted by Me (EKG is paced 87 UT 181 QRS 130 QTc 447) Past Medical History Past Medical History: Asthma, Diabetes Mellitus, GERD/Reflux, Hyperlipidemia, Musculoskeletal Disorder, Osteoarthritis (OA), Pneumonia, Renal Disease, Sleep Apnea/CPAP/BIPAP, Vascular Disorder Additional Past Medical History / Comment(s): neuropathy bilateral h ands/legs/feet, CKD stage III, hx kidney stones, anemia, UTI/septic due to lodged kidney stone, CARLOS with bipap, bronchitis, orthostatic hypotension with near syncope, vertigo, chronic low back pain/DDD, scoliosis, bilateral carpal tunnel syndrome, bilateral varicosities, migraines, SEE DR ALFORD H&P, gout, hx anemia(from nicked vein in left kidney after surgery for kidney stone), "embolism in my chest" History of Any Multi-Drug Resistant Organisms: None Reported Past Surgical History: AICD, Appendectomy, Back Surgery, Cardiac Ablation, Section, Cholecystectomy, Heart Catheterization, Hysterectomy, Joint Replacement, Orthopedic Surgery, Pacemaker Additional Past Surgical History / Comment(s): Rt knee arthroscopy, john total knee arthroplasty, pain clinic procedures, D&C, colonoscopy, bilateral leg varicose vein surgery, lithotripsies, surgical removal of stones, Myelogram([facility]) 2018, Lumbar fusion L3-4, lumbar puncture for headaches 2019 (had spinal headache post), laminectomy, bakers cyst removed from rt knee, john cataracts, 02/12/21 back surgery with complications, cervical fusion Dec 08 Past Anesthesia/Blood Transfusion Reactions: No Reported Reaction Additional Past Anesthesia/Blood Transfusion Reaction / Comment(s): Pt has received blood without reaction. Type of Cardiac Device: Permanent Pacemaker, AICD Device Placement Date:: 09/10/20 Past Psychological History: Anxiety, Depression Additional Psychological History / Comment(s): . Smoking Status: Never smoker Past Alcohol Use History: None Reported Additional Past Alcohol Use History / Comment(s): . Past Drug Use History: None Reported - Past Family History Father Family Medical History: Cancer Additional Family Medical History / Comment(s): Stomach cancer. Brother(s) Family Medical History: Cancer Additional Family Medical History / Comment(s): Lung cancer. Sister(s) Family Medical History: Cancer Additional Family Medical History / Comment(s): Sister had stomach/colon/part of pancreas cancers. Mother Family Medical History: Cancer Additional Family Medical History / Comment(s): Ovarian and cervical cancer. Course Vital Signs 03/13/24 03/13/24 03/13/24 04:55 05:12 06:01 Temperature 97.9 F Pulse Rate 90 80 77 Respiratory 18 18 18 Rate Blood Pressure 150/91 139/89 138/91 O2 Sat by Pulse 96 96 95 Oximetry Fraction of Inspired Oxygen (FIO2) 03/13/24 03/13/24 03/13/24 07:08 08:09 09:00 Temperature Pulse Rate 81 70 60 Respiratory 18 18 20 Rate Blood Pressure 134/80 139/89 126/76 O2 Sat by Pulse 94 L 96 96 Oximetry Fraction of Inspired Oxygen (FIO2) 03/13/24 03/13/24 03/13/24 09:42 10:15 10:45 Temperature Pulse Rate 87 67 68 Respiratory 20 Rate Blood Pressure 143/94 135/77 136/83 O2 Sat by Pulse 98 95 95 Oximetry Fraction of Inspired Oxygen (FIO2) 03/13/24 03/13/24 03/13/24 10:55 12:00 12:45 Temperature 97.8 F Pulse Rate 65 85 76 Respiratory 20 18 22 Rate Blood Pressure 136/83 129/78 137/86 O2 Sat by Pulse 96 99 Oximetry Fraction of Inspired Oxygen (FIO2) 03/13/24 03/13/24 03/13/24 13:15 13:33 14:05 Temperature Pulse Rate 125 H 124 H 128 H Respiratory 16 16 18 Rate Blood Pressure 149/98 145/109 134/96 O2 Sat by Pulse 97 97 97 Oximetry Fraction of Inspired Oxygen (FIO2) 03/13/24 03/13/24 03/13/24 14:10 15:10 15:16 Temperature 99.3 F Pulse Rate 123 H 124 H Respiratory 22 14 Rate Blood Pressure 142/97 154/108 143/91 O2 Sat by Pulse 94 L 114 H Oximetry Fraction of Inspired Oxygen (FIO2) 03/13/24 03/13/24 03/13/24 15:30 15:31 15:45 Temperature 99.3 F Pulse Rate 103 H 118 H 108 H Respiratory 16 16 16 Rate Blood Pressure 132/78 132/78 135/79 O2 Sat by Pulse 96 95 95 Oximetry Fraction of Inspired Oxygen (FIO2) 03/13/24 03/13/24 03/13/24 15:51 16:00 16:15 Temperature 99.2 F Pulse Rate 106 H 104 H Respiratory 16 16 Rate Blood Pressure 135/79 125/72 143/98 O2 Sat by Pulse 94 L 94 L 99 Oximetry Fraction of Inspired Oxygen (FIO2) 03/13/24 03/13/24 03/13/24 16:26 16:33 16:53 Temperature Pulse Rate 128 H Respiratory 18 Rate Blood Pressure 133/90 O2 Sat by Pulse 98 Oximetry Fraction of 100 100 Inspired Oxygen (FIO2) 03/13/24 17:19 Temperature Pulse Rate 130 H Respiratory 18 Rate Blood Pressure 130/69 O2 Sat by Pulse 98 Oximetry Fraction of Inspired Oxygen (FIO2) [facility] Re[facility]uation #1: 03/13/24 06:09 Medical records reviewed Initially presented as a code stroke, symptoms related to being a wake-up stroke Further history family informs that patient woke up around just prior to 4:00 was able to walk around without complaints and at 430 called daughter complaining of significant right-sided weakness and was noted to have difficulty with speech which worsened during EMS transport patient developed right-sided facial droop Reevaluation #2: 03/13/24 06:09 Symptoms unchanged Reevaluation #3: 03/13/24 06:09 Patient informed of results questions answered 03/13/24 06:09 Decided to go ahead with tPA Decision to tPA was late secondary to concern for side effects with family and patient in judgment to make and do tPA together Reevaluation #4: Was pt. sent in by a medical professional or institution (, [facility], [facility], urgent care, hospital, or senior care...) When possible be specific @ -no Did you speak to anyone other than the patient for history (EMS, parent, family, police, friend...)? What history was obtained from this source @ -no Did you review nursing and triage notes (agree or disagree)? Why? @ -agree Are old charts reviewed (outside hosp., previous admission, EMS record, old EKG, old radiological studies, urgent care reports/EKG's, senior care records)? Report findings @ -yes Differential Diagnosis (chest pain, altered mental status, abdominal pain women, abdominal pain men, vaginal bleeding, weakness, fever, dyspnea, syncope, headache, dizziness, GI bleed, back pain, seizure, CVA, palpatations, mental health, musculoskeletal)? @ -prior EKG interpreted by me (3pts min.). @ -yes X-rays interpreted by me (1pt min.). @ -yes negative for acute disease CT interpreted by me (1pt min.). @ -no U/S interpreted by me (1pt. min.). @ -no What testing was considered but not performed or refused? (CT, X-rays, U/S, labs)? Why? @ -none What meds were considered but not given or refused? Why? @ -none Did you discuss the management of the patient with other professionals (professionals i.e. , PA, [facility], lab, RT, psych nurse, social problems specialist, regulatory product manager, teacher, credit control officer, case monitor)? Give summary @ -no Was smoking cessation discussed for >3mins.? @ -no Was critical care preformed (if so, how long)? @ -no Were there social determinants of health that impacted care today? How? (Homelessness, low income, unemployed, alcoholism, drug addiction, transpor tation, low edu. Level, literacy, decrease access to med. care, fci, rehab)? @ -none Was there de-escalation of care discussed even if they declined (Discuss DNR or withdrawal of care, Hospice)? DNR status @ -no What co-morbidities impacted this encounter? (DM, HTN, Smoking, COPD, CAD, Cancer, CVA, ARF, Chemo, Hep., AIDS, mental health diagnosis, sleep apnea, morbid obesity)? @ -none Was patient admitted / discharged? Hospital course, mention meds given and route, prescriptions, significant lab abnormalities, going to OR and other pertinent info. @ - Undiagnosed new problem with uncertain prognosis? @ -no Drug Therapy requiring intensive monitoring for toxicity (Heparin, Nitro, Insuli n, Cardizem)? @ -no Were any procedures done? @ -no Diagnosis/symptom? @ - Acute, or Chronic, or Acute on Chronic? @ -Acute Uncomplicated (without systemic symptoms) or Complicated (systemic symptoms)? @ -Complicated Side effects of treatment? @ -no Exacerbation, Progression, or Severe Exacerbation? @ -exacerbation Poses a threat to life or bodily function? How? (Chest pain, [place], [place], pneumonia, PE, COPD, DKA, ARF, appy, cholecystitis, CVA, Diverticulitis, Homicidal, Suicidal, threat to staff... and all critical care pts) @ -yes Reevaluation #5: Differential CVA Ischemic stroke, hemorrhagic stroke, brain tumor, atypical migraine, Wernicke's encephalopathy, seizure, multiple sclerosis, meningitis, encephalitis, hypoglycemia, Guillain-Waller, electrolytes disturbance, myasthenia gravis.... This is not meant to be an all-inclusive list - Consultations Consultation #1: Spoke with Dr. Snell who agrees to admit this patient Consultation #2: With ICU as well as many physicians regarding patient thrombolysis for acute CVA Critical Care Time Critical Care Time: Yes Total Critical Care Time: 31 Disposition Clinical Impression: Cerebrovascular accident (CVA), Acute CVA (cerebrovascular accident) Narrative: CVA given tenectaplase Disposition: ADMITTED IP TO THIS [facility] Condition: Serious Is patient prescribed a controlled substance at d/c from ED?: No Time of Disposition: 06:00
[2024-03-13 05:24] LABS: Glucose,Whole Blood 142 mg/dL (70-110)
--- NOTE | 2024-03-13 05:30 | CT ---
EXAM: CT Angiography Head Without and With Intravenous Contrast CLINICAL HISTORY: ITS.REASON CT Reason: Neuro deficit, acute, stroke suspected TECHNIQUE: Axial computed tomographic angiography images of the head without and with intravenous contrast. CTDI is 48.8 mGy and DLP is 1143 mGy-cm. This CT exam was performed using one or more of the following dose reduction techniques: automated exposure control, adjustment of the mA and/or kV according to patient size, and/or use of iterative reconstruction technique. MIP reconstructed images were created and reviewed. COMPARISON: No relevant prior studies available. FINDINGS: VASCULATURE: Right internal carotid artery: Intracranial segment is patent with no significant stenosis. No aneurysm. Right anterior cerebral artery: No occlusion or significant stenosis. No aneurysm. Right middle cerebral artery: No occlusion or significant stenosis. No aneurysm. Right posterior cerebral artery: No occlusion or significant stenosis. No aneurysm. Right vertebral artery: Unremarkable as visualized. Left internal carotid artery: Intracranial segment is patent with no significant stenosis. No aneurysm. Left anterior cerebral artery: No occlusion or significant stenosis. No aneurysm. Left middle cerebral artery: No occlusion or significant stenosis. No aneurysm. Left posterior cerebral artery: No occlusion or significant stenosis. No aneurysm. Left vertebral artery: Unremarkable as visualized. Basilar artery: No occlusion or significant stenosis. No aneurysm. HEAD: Brain: No acute findings. No hemorrhage. No edema. Normal enhancement. Ventricles: Unremarkable. No ventriculomegaly. Bones/joints: No acute fracture. Soft tissues: Unremarkable. Sinuses: Unremarkable as visualized. No acute sinusitis. Mastoid air cells: Unremarkable as visualized. No mastoid effusion. IMPRESSION: No significant stenosis. EXAM: CT Angiography Neck With Intravenous Contrast CLINICAL HISTORY: ITS.REASON CT Reason: Neuro deficit, acute, stroke suspected TECHNIQUE: Routine carotid CT angiography protocol was performed with intravenous contrast. NASCET criteria using the distal ICAs for comparison were used for evaluation of stenoses. CTDI is 60 mGy and DLP is 60 mGy-cm. This CT exam was performed using one or more of the following dose reduction techniques: automated exposure control, adjustment of the mA and/or kV according to patient size, and/or use of iterative reconstruction technique. MIP reconstructed images were created and reviewed. COMPARISON: None. FINDINGS: VASCULATURE: Right common carotid artery: No occlusion or significant stenosis. No dissection. Right internal carotid artery: Extracranial segment is patent with no occlusion or significant stenosis. No dissection. Right vertebral artery: No occlusion or significant stenosis. No dissection. Left common carotid artery: No occlusion or significant stenosis. No dissection. Left internal carotid artery: Extracranial segment is patent with no occlusion or significant stenosis. No dissection. Left vertebral artery: No occlusion or significant stenosis. No dissection. NECK: Bones/joints: Postsurgical changes in the cervical spine. No acute fracture. Soft tissues: Unremarkable. Lung apices: Clear. CAROTID STENOSIS REFERENCE USING NASCET CRITERIA: % ICA stenosis = (1 - narrowest ICA diameter/diameter of distal cervical ICA) x 100. Mild - <50% stenosis. Moderate - 50-69% stenosis. Severe - 70-94% stenosis. Near occlusion - 95-99% stenosis. Occluded - 100% stenosis. IMPRESSION: No significant stenosis. No dissection or occlusion.
[2024-03-13 05:34] LABS: Basophils % (A) 0 %; Eosinophils # (A) 0.2 k/uL (0-0.7); Eosinophils % (A) 3 %; HCT 36.9 % (34.0-46.0); HGB 11.8 gm/dL (11.4-16.0); Hypochromasia Slight; Lymphocytes # (A) 1.4 k/uL (1.0-4.8); Lymphocytes % (A) 23 %; MCH 31.3 pg (25.0-35.0); Monocytes # (A) 0.4 k/uL (0-1.0); Monocytes % (A) 6 %; Neutrophils # (A) 4.1 k/uL (1.3-7.7); Neutrophils % (A) 66 %; RBC 3.77 m/uL (3.80-5.40); RDW 14.3 % (11.5-15.5); WBC 6.1 k/uL (3.8-10.6)
[2024-03-13 05:40] LABS: Mean Platelet Volume 8.4; Platelet Count 93 k/uL (150-450)
[2024-03-13] MEDS: T.ENECTEPLASE 5 MG/ML VIAL IVP STA (05:42)
[2024-03-13 05:47] LABS: INR 1.1 (<1.2); Partial Thromboplastin Time 22.7 sec (22.0-30.0); Prothrombin Time 12.2 sec (10.0-12.5)
[2024-03-13] MEDS: SODIUM CHLORIDE 0.9% 1,000 ML IV STA (05:47)
[2024-03-13 05:49] LABS: ALT 15 U/L (4-34); AST 26 U/L (14-36); African American GFR (CKD) 59 (>60 ml/min/1.73 sqM); Albumin 3.5 g/dL (3.5-5.0); Alkaline Phosphatase 138 U/L (38-126); Anion Gap 9 mmol/L; Blood Urea Nitrogen 36 mg/dL (7-17); Calcium 9.2 mg/dL (8.4-10.2); Carbon Dioxide 20 mmol/L (22-30); Chloride 110 mmol/L (98-107); Creatine Kinase 50 U/L (30-135); Glucose 144 mg/dL (74-99); Non-African American GFR(CKD) 51 (>60 ml/min/1.73 sqM); Potassium 4.2 mmol/L (3.5-5.1); Sodium 139 mmol/L (137-145); Total Bilirubin 0.4 mg/dL (0.2-1.3); Total Protein 5.9 g/dL (6.3-8.2)
--- NOTE | 2024-03-13 06:03 | CT ---
EXAM: CT Head Without Intravenous Contrast CLINICAL HISTORY: ITS.REASON CT Reason: Neuro deficit, acute, stroke suspected TECHNIQUE: Axial computed tomography images of the head/brain without intravenous contrast. CTDI is 48.8 mGy and DLP is 1143 mGy-cm. This CT exam was performed using one or more of the following dose reduction techniques: automated exposure control, adjustment of the mA and/or kV according to patient size, and/or use of iterative reconstruction technique. COMPARISON: No relevant prior studies available. FINDINGS: Brain: No intracranial hemorrhage, mass-effect, or cerebral edema. Calcifications along the falx and tentorial leaflets. Ventricles: Unremarkable. Bones/joints: Unremarkable. No fracture. Soft tissues: Unremarkable. Sinuses: No acute sinusitis. Mastoid air cells: Unremarkable as visualized. IMPRESSION: 1. No acute intracranial abnormality.
[2024-03-13] MEDS ORDERED: NALOXONE 0.4 MG/ML 1 ML VIAL IV PRN (06:05)
[2024-03-13] MEDS ORDERED: LORazepam 2 MG/ML INJ IV PRN (06:05)
[2024-03-13] MEDS ORDERED: ASPIRIN 325 MG TAB PO STA (06:05)
[2024-03-13] MEDS: ASPIRIN 300 MG SUPP RECTAL STA (07:04)
--- NOTE | 2024-03-13 08:18 | CT ---
EXAMINATION TYPE: CT brain wo con DATE OF EXAM: 03/13/2024 8:08 AM COMPARISON: 03/13/2024 0514 hours CLINICAL INDICATION: Female, 68 years old with history of CVA, new deficits, New Rt sided facial and leg twitching, given TPA this morning TECHNIQUE: CT of the brain is performed utilizing 3 mm thick sections through the posterior fossa and 3 mm thick sections through the remaining calvarium. Study is performed within 24 hours of arrival to the hospital. Contrast used: mL of , (none if empty) CT DLP: 1152.4 mGycm, Automated exposure control for dose reduction was used. FINDINGS: No abnormal hyperdensity is present to suggest an acute intracranial hemorrhage. No mass lesion is evident. No acute infarcts are evident. Ventricles and sulci are appropriate for the patient age. Paranasal sinuses and mastoid air cells within the [id number] are clear. Hyperostosis frontalis internus is present, a normal variant. Calcifications along the anterior falx. IMPRESSION: 1. No acute intracranial process. Follow up MRI can be performed as clinically indicated. [facility], , 03/13/2024 8:16 AM
[2024-03-13] MEDS: PANTOPRAZOLE 40 MG/10 ML VIAL IV SCH (08:47)
[2024-03-13 11:50] LABS: Glucose,Whole Blood 107 mg/dL (70-110)
[2024-03-13] MEDS: INSULIN ASPART (NovoLOG) 100 UNIT/ML VIAL SQ SCH (11:51)
--- NOTE | 2024-03-13 12:19 | P.CNPUL ---
History of Present Illness Consult date: 03/13/24 Chief complaint: CVA History of present illness: This is a 68-year-old female patient who presented to the Emergency Department with slurred speech and right-sided weakness involving right upper and right lower extremity. The patient initial NIH score was 10. She qualified for thrombolytics and the patient was given TNK. Currently, she still having some aphasia. Right upper extremity is flaccid. There is improvement in the right lower extremity motor function. She failed a swallow evaluation. She is currently on aspirin. Noted following the thrombolytics, the patient encountered some twitching of the face and headache. A repeat CAT scan of the brain was done that showed no acute abnormalities. CT scan of the chest and CT angiogram of the head and neck at the time of admission was essentially within normal limits. Cardiac rhythm is sinus. She is hemodynamically stable. No chest pain for now. Blood work shows a white cell count of 6.1 with a hemoglobin 11.8 and a platelet count of 93. BUN 36 with a creatinine of 1.1. Sodium levels at 139. Potassium level is at 4.2. Viral screen has been negative. She is resting comfortably in bed. Review of Systems Constitutional: Reports as per HPI Eyes: denies as per HPI, denies blurred vision, denies bulging eye, denies decreased vision, denies diplopia, denies discharge, denies dry eye, denies irritation, denies itching, denies pain, denies photophobia, denies loss of peripheral vision, denies loss of vision, denies tunnel vision/blind spots Ears: deny: decreased hearing, ear discharge, earache, tinnitus Ears, nose, mouth and throat: Reports as per HPI Breasts: absent: as per HPI, change in shape, gynecomastia, masses, nipple discharge, pain, skin changes, swelling Cardiovascular: Reports as per HPI Respiratory: Reports as per HPI Gastrointestinal: Reports as per HPI Genitourinary: Reports as per HPI Menstruation: Reports as per HPI Musculoskeletal: Reports as per HPI Musculoskeletal: absent: ankle pain, ankle stiffness, ankle swelling, as per HPI, elbow pain, elbow stiffness, elbow swelling, foot pain, foot stiffness, foot swelling, hand pain, hand stiffness, hand swelling, hip pain, hip stiffness, hip swelling, knee pain, knee stiffness, knee swelling, shoulder pain, shoulder stiffness, shoulder swelling, wrist pain, wrist stiffness, wrist swelling Integumentary: Reports as per HPI Neurological: Reports as per HPI (Right-sided weakness), Reports aphasia Psychiatric: Reports as per HPI Endocrine: Reports as per HPI Hematologic/Lymphatic: Reports as per HPI Allergic/Immunologic: Reports as per HPI Past Medical History Past Medical History: Asthma, Diabetes Mellitus, GERD/Reflux, Hyperlipidemia, Musculoskeletal Disorder, Osteoarthritis (OA), Pneumonia, Renal Disease, Sleep Apnea/CPAP/BIPAP, Vascular Disorder Additional Past Medical History / Comment(s): neuropathy bilateral hands/legs/feet, CKD stage III, hx kidney stones, anemia, UTI/septic due to lodged kidney stone, CARLOS with bipap, bronchitis, orthostatic hypotension with near syncope, vertigo, chronic low back pain/DDD, scoliosis, bilateral carpal tunnel syndrome, bilateral varicosities, migraines, SEE DR ALFORD H&P, gout, hx anemia(from nicked vein in left kidney after surgery for kidney stone), "embolism in my chest" History of Any Multi-Drug Resistant Organisms: None Reported Past Surgical History: AICD, Appendectomy, Back Surgery, Cardiac Ablation, Section, Cholecystectomy, Heart Catheterization, Hysterectomy, Joint Replacement, Orthopedic Surgery, Pacemaker Additional Past Surgical History / Comment(s): Rt knee arthroscopy, john total knee arthroplasty, pain clinic procedures, D&C, colonoscopy, bilateral leg varicose vein surgery, lithotripsies, surgical removal of stones, Myelogram(Norberto) 2018, Lumbar fusion L3-4, lumbar puncture for headaches 2019 (had spinal headache post), laminectomy, bakers cyst removed from rt knee, john cataracts, 02/12/21 back surgery with complications, cervical fusion Dec 08 Past Anesthesia/Blood Transfusion Reactions: No Reported Reaction Additional Past Anesthesia/Blood Transfusion Reaction / Comment(s): Pt has received blood without reaction. Type of Cardiac Device: Permanent Pacemaker, AICD Device Placement Date:: 09/10/20 Past Psychological History: Anxiety, Depression Additional Psychological History / Comment(s): . Smoking Status: Never smoker Past Alcohol Use History: None Reported Additional Past Alcohol Use History / Comment(s): . Past Drug Use History: None Reported - Past Family History Father Family Medical History: Cancer Additional Family Medical History / Comment(s): Stomach cancer. Brother(s) Family Medical History: Cancer Additional Family Medical History / Comment(s): Lung cancer. Sister(s) Family Medical History: Cancer Additional Family Medical History / Comment(s): Sister had stomach/colon/part of pancreas cancers. Mother Family Medical History: Cancer Additional Family Medical History / Comment(s): Ovarian and cervical cancer. Medications and Allergies Home Medications Medication Instructions Recorded Confirmed Type Montelukast [Singulair] 10 mg PO HS 11/02/18 03/13/24 History Topiramate [Topamax] 50 mg PO HS 09/05/19 03/13/24 History Insulin Lispro [humaLOG Kwikpen] 10 unit SQ TID-W/MEALS 02/09/20 03/13/24 Hist ory Midodrine HCl [ProAmatine] 10 mg PO TID 06/09/22 03/13/24 History allopurinoL 100 mg PO HS 06/09/22 03/13/24 History Insulin Glargine,Hum.rec.anlog 20 units SQ HS 01/07/23 03/13/24 History [Lantus Solostar Pen] Yuperli 175mcg/3ml 175 mcg INHALATION RT-DAILY 01/07/23 03/13/24 History Aspirin EC [Ecotrin Low Dose] 81 mg PO DAILY 03/17/23 03/13/24 History Ferrous Sulfate [Iron (65 MG 325 mg PO DAILY 03/17/23 03/13/24 History Elemental)] calcitrioL 0.25 mcg PO SUWE 03/17/23 03/13/24 History HYDROcodone/APAP 10-325MG [[place] 1 tab PO QID PRN 04/23/23 03/13/24 History 10-325] Cyanocobalamin [Vitamin B-12] 500 mcg PO HS 03/13/24 03/13/24 History Docusate 50mg 50 mg PO Q48H 03/13/24 03/13/24 History Ergocalciferol (Vitamin D2) 1,250 mcg PO Q14D 03/13/24 03/13/24 History [Drisdol (50,000 Iu)] Formoterol Fumarate [Perforomist] 20 mcg INHALATION RT-BID 03/13/24 03/13/24 History Gabapentin 300 mg PO BID 03/13/24 03/13/24 History Magnesium 500 mg PO HS 03/13/24 03/13/24 History Mirabegron [Myrbetriq] 25 mg PO DAILY 03/13/24 03/13/24 History Omeprazole 40 mg PO BID 03/13/24 03/13/24 History Zinc Gluconate [Zinc] 50 mg PO DAILY 03/13/24 03/13/24 History carvediloL 6.25 mg PO BID 03/13/24 03/13/24 History tiZANidine [Zanaflex] 2 mg PO BID PRN 03/13/24 03/13/24 History Allergies Allergy/AdvReac Type Severity Reaction Status Date / Time No Known Allergies Allergy Verified 03/13/24 10:06 Physical Exam Vitals: Vital Signs Temp Pulse Resp BP Pulse Ox 03/13/24 07:08 81 18 134/80 94 L 03/13/24 06:01 77 18 138/91 95 03/13/24 05:12 80 18 139/89 96 03/13/24 04:55 97.9 F 90 18 150/91 96 Intake and Output 03/12/24 03/13/24 03/13/24 22:59 06:59 14:59 Other: Weight 90.718 kg The patient appeared well nourished and normally developed. Vital signs as documented., Comfortable on 2 L of oxygen by nasal cannula Head exam is unremarkable. No scleral icterus or corneal arcus noted. Neck is without jugular venous distension, thyromegaly, or carotid bruits. Carotid upstrokes are brisk bilaterally. Lungs are clear to auscultation and percussion. The patient has a defibrillator pocket over the left anterior chest area Cardiac exam reveals the PMI to be normally sized and situated. Rhythm is regular. First and second heart sounds normal. No murmurs, rubs or gallops. Abdominal exam reveals normal bowel sounds, no masses, no organomegaly and no aortic enlargement. Extremities are nonedematous and both femoral and pedal pulses are normal. Examination of the skin revealed no evidence of significant rashes, suspicious appearing nevi or other concerning lesions. Neurologically, the patient is awake and she has a flaccid paralysis of the right upper extremity and some right facial weakness. She has slurred speech and aphasia. Motor function in the right lower extremity is around 4 out of 5. No Babinski. No clonus. Results - Laboratory Findings CBC and BMP: 03/13/24 05:22 03/13/24 05:22 PT/INR, D-dimer PT 12.2 sec (10.0-12.5) 03/13/24 05:22 INR 1.1 (<1.2) 03/13/24 05:22 Abnormal lab findings: Abnormal Labs 03/13/24 03/13/24 03/13/24 05:22 05:22 05:22 RBC 3.77 L Plt Count 93 L Chloride 110 H Carbon Dioxide 20 L BUN 36 H Creatinine 1.10 H Glucose 144 H POC Glucose (mg/dL) 142 H Alkaline Phosphatase 138 H Total Protein 5.9 L Assessment and Plan Plan: Acute CVA with expressive aphasia/slurred speech, right-sided weakness and the patient was given TNK. Initial NIH score was 10. Post TNK, the patient developed some headache and twitching in her face and repeat CAT scan of the brain was done that showed no evidence of any bleeding. Hemodynamically stable. Currently NPO. Failed swallow evaluation. Receiving rectal aspirin. Hemodynamically stable. CT scan of the head and CTA of the head and neck showed no acute abnormalities. No abnormalities with the cerebral vasculature. History of traumatic T11 fracture, and is status postoperative T9 to L2 stabilization. The patient has been followed up by pain management and the patient is receiving pain shots Chronic systolic congestive heart failure, recent echocardiogram on 03/18/2023 shows a severely reduced ejection fraction of 30%. History of non-ischemic cardiomyopathy, status post bi-ventricular pacemaker/A ICD placement Diabetes mellitus, insulin-dependent, maintained on Levemir insulin at bedtime in addition to sliding scale insulin coverage. History of hypertension History of hyperlipidemia Chronic kidney disease stage III Chronic thrombocytopenia, stable Chronic bronchial asthma, maintain on a combination of bronchodilators on outpatient basis History of obstructive sleep apnea, mild, maintained on CPAP therapy on outpatient basis. Obesity, with a BMI of 34.1 kg/m History of COVID-19 pneumonia requiring hospitalization May, History of C2 to T2 decompression and posterior-lateral fusion in 12/08/22, complicated by wound dehiscence and infection, with repeat incision and drainage and excisional debridement on 01/08/2023 History of L2 to pelvis decompression and fusion Plan Close neuromonitoring in the intensive care unit Avoid any hypotension Rectal aspirin Repeat another calcium within 24 hours Neurology consultation Hemodynamically stable O2 at 2 L/min nasal cannula May utilize CPAP overnight Keep the patient n.p.o. Repeat swallow evaluation with the next 24 hours Will continue to follow.
--- NOTE | 2024-03-13 14:16 | CT ---
EXAMINATION TYPE: CT brain wo con DATE OF EXAM: 03/13/2024 2:07 PM COMPARISON: 03/13/2024. CLINICAL INDICATION: Female, 68 years old with history of worsening symptoms, Right and left side wea kness, facial droop, aphasia. TECHNIQUE: Brain: Axial CT images of the brain were obtained with coronal and sagittal reformats created and rev iewed. Contrast used: None. Oral contrast used: None. CT DLP: 1147.4 mGycm, Automated exposure control for dose reduction was used. FINDINGS: Brain: Extra-axial spaces: No abnormal extra-axial fluid collections. Ventricular system: No blood products within the ventricular system rightward deviation. Cerebral parenchyma: There is now an intraparenchymal hemorrhage involving the parietal/frontal regio n on the right measuring up to 5.4 x 4.5 x 4.5 cm. There is rightward 4 mm subfalcine midline shift. Cerebellum: Unremarkable. Mass effect: No evidence of midline shift. Intracranial vasculature: Atherosclerotic calcifications of the intracranial vessels. Soft tissues: Normal. Calvarium/osseous structures: No depressed skull fracture. Paranasal sinuses and mastoid air cells: Mild scattered paranasal sinus disease. Visualized orbits: Bilateral aphakia and lateral IMPRESSION: Intraparenchymal hemorrhage in the left frontal/parietal region measuring up to 5.4 cm. There is asso ciated rightward subfalcine herniation. No blood products dependently within the ventricular system a t this time. Findings communicated to Primo Reveles MD on 03/13/2024 2:[address] Carlos Lee. [facility], , 03/13/2024 2:13 PM
[2024-03-13] MEDS: levETIRAcetam IV 500 MG/5 ML VIAL IVP STA (14:42)
[2024-03-13 14:55] LABS: Glucose,Whole Blood 140 mg/dL (70-110)
[2024-03-13] MEDS ORDERED: NOREPINEPHRINE 4 MG in SODIUM CHLORIDE 0.9% 250 ML IV ONE (15:00)
[2024-03-13] MEDS: niCARdipine 20 MG in SODIUM CHLORIDE 0.9% 192 ML IV SCH (15:09)
[2024-03-13] MEDS: SALINE IV ONE (15:23)
[2024-03-13] MEDS: MANNITOL 20% IV ONE (15:23)
[2024-03-13 16:10] VITALS: TEMP 99.2
[2024-03-13] MEDS: carvediloL 6.25 MG TAB PO SCH (16:49)
[2024-03-13 16:54] VITALS: RESP 18
--- NOTE | 2024-03-13 17:02 | XR ---
EXAMINATION TYPE: XR chest 1V portable DATE OF EXAM: 03/13/2024 4:46 PM COMPARISON: Chest radiographs from 04/23/2023. CLINICAL INDICATION: Female, 68 years old with history of tube placement; [facility] TECHNIQUE: XR chest 1V portable Frontal view of the chest. FINDINGS: Lungs/Pleura: Airspace opacities are thought to project over the left lung possibly due to patient po sitioning. Right-sided no evidence for pneumothorax or pleural effusion. Pulmonary vascularity: Unrem arkable. Heart/mediastinum: Cardiomediastinal silhouette is unremarkable. Three lead cardiac conduction device overlying the left hemithorax with lead tips projecting over the right ventricle, right atrium and c oronary sinus. Musculoskeletal: No acute osseous pathology. Fixation hardware throughout spine appears intact. Other findings: None Lines/Tubes: Endotracheal tube is out to be above the bernarda. Bernarda is poorly visualized due to patient position. Nasogastric tube with its distal tip and side-port projecting under the diaphragm. IMPRESSION: 1. Rotated exam endotracheal tube is thought to be above the bernarda evaluation extremely limited. 2. Airspace opacities are thought to project over the left lung possibly due to patient positioning. [facility], , 03/13/2024 5:00 PM
[2024-03-13 18:12] VITALS: BP 130/69; PULSE 130
--- NOTE | 2024-03-13 18:47 | P.CNNES ---
History of Present Illness Consult date: 03/13/24 Requesting physician: Emmett Claire Reason for Consult: CVA History of Present Illness: Patient is a 68-year-old right-handed female came to the hospital by ambulance black puller today at 4:53 AM for acute strokelike symptoms. Patient's daughter was present at this time, who provided with a history. She states that patient was doing fine at 11:30 PM last night when she went to bed. At 4:30 AM she woke her up calling her that something is happening with the right arm. She could not move her right arm. She tried to lift it, and it was a " weight". Patient denied any chest pain at that time. Patient's daughter told her to move around, maybe she slept on it. About 10 minutes later patient started having problem with the speech, not able to speak. Then patient's daughter knew that patient was having a stroke. She called 911 and patient was brought to the hospital. Patient's daughter further stated that she and her mom (patient) stay in the same room. At around 3:45 AM, patient went to the bathroom, walked normally and then came back to the bed and did not complain of anything unusual. She believes patient's last known well was about 3:45 AM, although patient did not say anything if she was experiencing something. However at 4:30 AM she obviously started having symptoms as mentioned above. As per EMS flowsheet when they arrived, patient was treated on her wheelchair walker upright but slightly leaning to the right. Patient was having expressive aphasia, right-sided weakness and slurred speech. Family reported that patient alerted them to her weakness approximately 30 minutes ago. Her symptoms progressed and family called 911. Last known well was 11:30 AM the night prior. Patient has history of mini strokes. Patient was able to answer questions with moderate accuracy but family mentioned that her speech is normally clear and concise but at this time it is slurred and muffled. Fast ED score of 3. Blood glucose 136 mg/dL. Patient has a pacemaker. During en-route, patient exhibit minor right-sided facial droop. Patient's vitals was blood pressure 160/100, pulse rate 99 respiration 18 saturation 98%. Vital signs blood pressure 150/91, pulse rate 90 temperature 97.9. Blood test shows normal CBC with platelets 93,, PT PTT, normal electrolytes, BUN 36, creatinine 1.10. Hepatic panel is normal. Troponin negative. EKG shows electronic ventricular pacemaker. CT head revealed no acute intracranial abnormality. CTA of head and neck was reported as normal. Patient's NIH stroke scale was documented 13 in the ER report. As per ED report, initially it appears patient was considered not a candidate for tPA because of wake-up stroke. But when patient's family arrived to the ER, they reported to the ED physician about patient being normal at around 3:45 AM when she woke up to go to the bathroom, made that last known well. Please refer to ED note for details. As per records, it appears patient was considered a candidate for TNK, which was given at 5:42 AM. On reviewing records, it appears patient was given aspirin 300 mg rectally in the ER at 6:27 AM. Home medications include Topamax 50 mg bedtime, insulin, midodrine 10 mg 3 times daily, aspirin 81 mg, ferrous sulfate, Coreg, Zanaflex, B12, Myrbetriq and gabapentin. Patient has history of hypertension, diabetes since 90s, never smoked, does not drink alcohol. Patient's daughter mentions that she has history of a mini stroke > 10 years ago, with no deficits. At 7:51 AM, I was informed by the nurse that patient is having twitching of the right side of the face and right foot that lasted for 5 minutes and then resolved. I recommended stat CT scan of the head. This was performed at 8:02 AM. The nurse reported no acute process. I personally reviewed CT head, agree with the findings, with no hemorrhage seen. Some contrast material from previous CTA was noticeable in the blood vessels. Subsequently nurse reported that her speech and symptoms have improved. Review of Systems Patient admits to having headache. Patient not able to tell details. Patient denied any chest pain earlier. Past Medical History Past Medical History: Asthma, Diabetes Mellitus, GERD/Reflux, Hyperlipidemia, Musculoskeletal Disorder, Osteoarthritis (OA), Pneumonia, Renal Disease, Sleep Apnea/CPAP/BIPAP, Vascular Disorder Additional Past Medical History / Comment(s): neuropathy bilateral hands/legs/feet, CKD stage III, hx kidney stones, anemia, UTI/septic due to lodged kidney stone, CARLOS with bipap, bronchitis, orthostatic hypotension with near syncope, vertigo, chronic low back pain/DDD, scoliosis, bilateral carpal tunnel syndrome, bilateral varicosities, migraines, SEE DR ALFORD H&P, gout, hx anemia(from nicked vein in left kidney after surgery for kidney stone), "embolism in my chest" History of Any Multi-Drug Resistant Organisms: None Reported Past Surgical History: AICD, Appendectomy, Back Surgery, Cardiac Ablation, Section, Cholecystectomy, Heart Catheterization, Hysterectomy, Joint Replacement, Orthopedic Surgery, Pacemaker Additional Past Surgical History / Comment(s): Rt knee arthroscopy, john total knee arthroplasty, pain clinic procedures, D&C, colonoscopy, bilateral leg varicose vein surgery, lithotripsies, surgical removal of stones, Myelogram([place]) 2018, Lumbar fusion L3-4, lumbar puncture for headaches 2019 (had spinal headache post), laminectomy, bakers cyst removed from rt knee, john cataracts, 02/12/21 back surgery with complications, cervical fusion Dec 08 Past Anesthesia/Blood Transfusion Reactions: No Reported Reaction Additional Past Anesthesia/Blood Transfusion Reaction / Comment(s): Pt has received blood without reaction. Type of Cardiac Device: Permanent Pacemaker, AICD Device Placement Date:: 09/10/20 Past Psychological History: Anxiety, Depression Additional Psychological History / Comment(s): . Smoking Status: Never smoker Past Alcohol Use History: None Reported Additional Past Alcohol Use History / Comment(s): . Past Drug Use History: None Reported - Past Family History Father Family Medical History: Cancer Additional Family Medical History / Comment(s): Stomach cancer. Brother(s) Family Medical History: Cancer Additional Family Medical History / Comment(s): Lung cancer. Sister(s) Family Medical History: Cancer Additional Family Medical History / Comment(s): Sister had stomach/colon/part of pancreas cancers. Mother Family Medical History: Cancer Additional Family Medical History / Comment(s): Ovarian and cervical cancer. Medications and Allergies Home Medications Medication Instructions Recorded Confirmed Type Montelukast [Singulair] 10 mg PO HS 11/02/18 03/13/24 History Topiramate [Topamax] 50 mg PO HS 09/05/19 03/13/24 History Insulin Lispro [humaLOG Kwikpen] 10 unit SQ TID-W/MEALS 02/09/20 03/13/24 History Midodrine HCl [ProAmatine] 10 mg PO TID 06/09/22 03/13/24 History allopurinoL 100 mg PO HS 06/09/22 03/13/24 History Insulin Glargine,Hum.rec.anlog 20 units SQ HS 01/07/23 03/13/24 History [Lantus Solostar Pen] [place] 175mcg/3ml 175 mcg INHALATION RT-DAILY 01/07/23 03/13/24 History Aspirin EC [Ecotrin Low Dose] 81 mg PO DAILY 03/17/23 03/13/24 History Ferrous Sulfate [Iron (65 MG 325 mg PO DAILY 03/17/23 03/13/24 History Elemental)] calcitrioL 0.25 mcg PO SUWE 03/17/23 03/13/24 History HYDROcodone/APAP 10-325MG [[place] 1 tab PO QID PRN 04/23/23 03/13/24 History 10-325] Cyanocobalamin [Vitamin B-12] 500 mcg PO HS 03/13/24 03/13/24 History Docusate 50mg 50 mg PO Q48H 03/13/24 03/13/24 History Ergocalciferol (Vitamin D2) 1,250 mcg PO Q14D 03/13/24 03/13/24 History [Drisdol (50,000 Iu)] Formoterol Fumarate [Perforomist] 20 mcg INHALATION RT-BID 03/13/24 03/13/24 History Gabapentin 300 mg PO BID 03/13/24 03/13/24 History Magnesium 500 mg PO HS 03/13/24 03/13/24 History Mirabegron [Myrbetriq] 25 mg PO DAILY 03/13/24 03/13/24 History Omeprazole 40 mg PO BID 03/13/24 03/13/24 History Zinc Gluconate [Zinc] 50 mg PO DAILY 03/13/24 03/13/24 History carvediloL 6.25 mg PO BID 03/13/24 03/13/24 History tiZANidine [Zanaflex] 2 mg PO BID PRN 03/13/24 03/13/24 History Allergies Allergy/AdvReac Type Severity Reaction Status Date / Time No Known Allergies Allergy Verified 03/13/24 10:06 Physical Examination - Vital Signs Vital Signs: Vital Signs Temp Pulse Resp BP Pulse Ox 03/13/24 10:55 97.8 F 65 20 136/83 96 03/13/24 10:45 68 136/83 95 03/13/24 10:15 67 135/77 95 03/13/24 09:42 87 20 143/94 98 03/13/24 09:00 60 20 126/76 96 03/13/24 08:09 70 18 139/89 96 03/13/24 07:08 81 18 134/80 94 L 03/13/24 06:01 77 18 138/91 95 03/13/24 05:12 80 18 139/89 96 03/13/24 04:55 97.9 F 90 18 150/91 96 Intake and Output 03/12/24 03/13/24 03/13/24 22:59 06:59 14:59 Other: Weight 90.718 kg Patient is an elderly female, in no acute distress. Patient is alert awake. Patient is significantly aphasic, with severe expressive aphasia. Patient only able to speak some nonintelligible speech. Patient's comprehension is intact. Patient was able to follow directions appropriately. Not able to name any objects, or repeat. Attention, aundrea ntration appears intact and fund of knowledge cannot be assessed. On cranial nerve examination, pupils are equal, round and reacting to light, visual ramos are full on confrontation, with no neglect on double simultaneous stimulation (patient able to point with her eyes and left hand). Extraocular muscles are intact with no nystagmus. Patient has right facial weakness, central type. Tongue protrudes to midline. Palatal elevation and sensation normal, hearing is normal and shoulder shrug absent on the right, facial sensation normal. On muscle strength testing, patient has no movement of the right arm. Patient was able to lift her right leg off the bed, but not able to hold off for more than 5 seconds and will bring it down. She would also bring her right leg off the bed by herself but then not able to maintain up. Her strength of the left arm and left leg are normal. Deep tendon reflexes are symmetric 1+ in the upper limbs, absent at the knees (history of bilateral knee surgeries), absent in the ankles, plantar is clearly upgoing on the right, down on the left. Sensory to touch is decreased on the right side as compared to the left. Cerebellar function cannot be performed with the right side of the body, normal on the left side. Tone and bulk of muscles normal. Gait deferred.. On general examination, there is no carotid bruit or murmur, S1-S2 audible. Chest is clear on consultation. Abdomen is soft nontender. No organomegaly, bowel sounds present. Peripheral pulses are present. No peripheral edema. Results - Laboratory Findings CBC and BMP: 03/13/24 05:22 03/13/24 05:22 Abnormal Lab Findings: Abnormal Labs 03/13/24 03/13/24 03/13/24 05:22 05:22 05:22 RBC 3.77 L Plt Count 93 L Chloride 110 H Carbon Dioxide 20 L BUN 36 H Creatinine 1.10 H Glucose 144 H POC Glucose (mg/dL) 142 H Alkaline Phosphatase 138 H Total Protein 5.9 L Assessment and Plan Assessment: * Acute ischemic stroke manifesting with right hemiparesis and aphasia. Patient's initial NIH stroke scale was 13 in the ER. Patient received TNK and then her symptoms have been fluctuating, improving and worsening. At present her NIH stroke scale is 15. Patient is having stuttering symptoms, of unclear cause. Earlier stroke scales were fluctuating between 9 and 13. Patient's blood pressure has been running between 135-155 systolic range. Patient had a CT scan of head done 2 hours post TNK, which did not reveal any intracranial bleed. * Hypertension * Diabetes, last A1c 6.4 * Hyperlipidemia * Pacemaker * CHF with low EF <30% on 03/18/2023 * Thrombocytopenia * Chronic renal insufficiency * Peripheral neuropathy * Obstructive sleep apnea * Obesity * Chronic back pain * History of back surgery * History of cervical decompression surgery * History of bilateral knee surgery * Scoliosis Plan: * Patient has received TNK. Post TNK orders set to follow. Patient's symptoms are fluctuating since receiving TNK, with improving and worsening symptoms, of unclear cause. At present she is slightly worse but hopefully will improve. * Patient admitted to the ICU. Patient requires very close neurological monitoring, to look for any signs of worsening. * MRI of the brain cannot be done because patient has pacemaker. * 2-D echo with bubble study to rule out PFO * CTA head and neck showed: No significant stenosis, occlusion, dissection or aneurysm. * Fasting a.m. lipid panel * Hemoglobin A1c * Permissive hypertension for next 24-48 hours, but keep blood pressure < 180/105. Current blood pressure stable. * No antiplatelets or anticoagulants for 24 hours post TNK. * Neuro checks as per protocol. * Telemetry monitoring rule out any arrhythmia * PT, OT, speech therapy * DVT prophylaxis: Recommend SCDs. * Neurology will continue to follow. Thank you for the consult. Addendum: I was informed by the nurse at 1:24 PM the patient's condition has worsened, with NIH stroke scale has got worse of 16 (her NIH stroke scale was 13 at 12:[address] PM[address] scan of head was recommended. I came over to see the patient at around 2:15 PM, right after she returned from CT. Her CT scan of the head showed Intraparenchymal hemorrhage in the left frontal/parietal region measuring up to 5.4 cm. There is associated rightward subfalcine herniation. No blood products dependently within the ventricular system at this time. I reviewed CT head, agree with the findings. Patient was obviously clinically worse at this time. Patient was more le thargic, less responsive, less alert, not following commands appropriately however still was awake. Patient not able to lift her right leg off the bed. Discussed with neurointervention Dr. Blunt, who recommended keep blood pressure < 140 systolic, mannitol 1 g/kg loading dose, cryoprecipitate, and reverse effect of TNK. Also discussed with hematology, who recommended cryoprecipitate 6 units and Amicar. Transfer process to various hospitals were initiated for stat neurosurgical c onsultation, including [facility], [facility], [facility]'s. I spent at least 2 hours coordinating care for transfer. Patient was finally accepted at [facility] at 4 PM. I came over to see the patient, at 4 PM and she was significantly obtunded, lethargic, having deep sonorous respiration, much worse than earlier examination. Patient was not following any commands. Patient was not stable from cardiopulmonary standpoint to be transferred at this point. Discussed with couture dressmaker to initiate intubation. General anesthesia was called for intubation. At this point, I discussed with patient's daughter in detail about patient's current condition. She is critically sick. Discussed about repeating CT head here at [facility], to see the status of the intracranial bleed, look for signs for any significant worsening, to see if it is worth transferring to another facility. However this process may delay the transfer to [facility], in case anything can be done neurosurgically over there, as EMS were arriving anytime. I also informed her that it is possible that patient may develop cardiac arrest en-route to the hospital, or CT head performed at [facility] may show remarkable worsening of hemorrhage, and patient may not be a candidate for any intervention at that point. Patient's daughter decided patient to be transferred for any chance that surgery could be performed and to help her, and would avoid any delays. Therefore patient to be transferred to [facility]. We will skip repeat imaging at this point. Time with Patient: Greater than 30
[2024-03-13] MEDS ORDERED: FORMOTEROL FUMARATE 20 MCG/2 ML NEBU INHALATION SCH (20:00)
[2024-03-13] MEDS ORDERED: BUDESONIDE 0.5 MG/2 ML NEBU INHALATION SCH (20:00)
[2024-03-13] MEDS ORDERED: MONTELUKAST 10 MG TAB PO SCH (21:00)
[2024-03-13] MEDS ORDERED: ATORVASTATIN 80 MG TAB PO SCH (21:00)
[2024-03-13] MEDS ORDERED: PANTOPRAZOLE 40 MG/10 ML VIAL IVP SCH (21:00)
--- NOTE | 2024-03-13 22:23 | HP ---
HISTORY AND PHYSICAL HISTORY OF PRESENT ILLNESS: This is a white female who came into the emergency room, woke up, unable to speak in the middle of the night, right arm paresis, came to the emergency room for acute stroke. She had tPA given in the ER recently. She has been noncompliant with her medications at home over the last 2 weeks. After discussing with her daughter her care, she wears a CPAP at night, she is noncompliant with that, etc. She has been coughing recently with more congestion and phlegm and diarrhea, possibly caught a virus. HOME MEDICATIONS: 1. Singulair 10 daily. 2. Lipitor 20 daily. 3. Topamax 50 daily. 4. daily. 5. Aspirin 81 daily. 6. Ferrous sulfate 325 daily. 7. Calcitriol 0.25 mcg . 8. Flexeril 5 q.8. 9. Gabapentin 300 q.6. 10.[place] 10 q.4. 11.Coreg 6.25 b.i.d. 12.Zestril 2.5 daily. 13.Omeprazole 20 daily. 14.ProAmatine 10 t.i.d. ALLERGIES: Negative. REVIEW OF SYSTEMS: A 14-point review of systems otherwise negative. PHYSICAL EXAMINATION: NEUROLOGIC: NIH of 13 in the ER. Normocephalic, atraumatic. She got out a few words today that make complete sense. She failed a swallow eval. GENERAL: She is an obese white woman. LUNGS: Scattered wheeze. CARDIOVASCULAR: S1, S2. ABDOMEN: Soft, distended. EXTREMITIES: 2 to 3+ edema. LABORATORY DATA: White count 6.1, hemoglobin is , creatinine 1.0. ASSESSMENT AND PLAN: She has acute cerebrovascular accident with right paresis and speech abnormality, failed swallow eval, in the past she was unable to have MRIs due to cardiac issues involving automatic implantable cardioverter-defibrillator placement, etc. She has had recent epidural shots with Dr. Cedeno for lumbar disk disease. I suspect she had a stroke due to noncompliance to medications and other risk factors including being sick. She was given fluids in the emergency room, blood pressure medications her home medicines were restarted. Try to get her to wear continuous positive airway pressure at night here in the hospital that she wears at home. CTA of the head is negative. No carotid blockages. Negative for cerebrovascular accident. As mentioned, I am not sure she can get an MRI due to her cardiac devices for coronary artery disease. She has a history of coronary artery disease, stents, etc., diabetes, obesity, etc. She has been good for the last few years. She is to be admitted over the time. Further workup in place. Please see further orders. MMODL / IJN: [id number] /
[2024-03-14] MEDS ORDERED: Yupelri 175mcg/3ml 175 MCG INHALATION SCH (08:00)
[2024-03-14] MEDS ORDERED: ASPIRIN 325 MG TAB PO SCH (09:00)
[2024-03-14] MEDS ORDERED: ASPIRIN 81 MG PO SCH (09:00)
== END 2024-03-13 17:20 | disposition short-term general hospital (02) | DRG 64 ==
LOC: EC 04:53 → 2SICU 06:05
PROVIDERS: ADMIT Family Medicine; ATTEND Family Medicine
PROC: 5A1935Z Respiratory Ventilation, Less than 24 Consecutive Hours (ICD-10-PCS; principal; 2024-03-13)
PROC: 3E03317 Introduction of Other Thrombolytic into Peripheral Vein, Percutaneous Approach (ICD-10-PCS; 2024-03-13)
PROC: 0BH17EZ Insertion of Endotracheal Airway into Trachea, Via Natural or Artificial Opening (ICD-10-PCS; 2024-03-13)
PROC: 3E033XZ Introduction of Vasopressor into Peripheral Vein, Percutaneous Approach (ICD-10-PCS; 2024-03-13)
DX: I61.1 Nontraumatic intracerebral hemorrhage in hemisphere, cortical (principal); G93.5 Compression of brain; G81.91 Hemiplegia, unspecified affecting right dominant side; I42.8 Other cardiomyopathies; R47.01 Aphasia; I50.22 Chronic systolic (congestive) heart failure; I13.0 Hypertensive heart and chronic kidney disease with heart failure and stage 1 through stage 4 chronic kidney disease, or unspecified chronic kidney disease; D69.6 Thrombocytopenia, unspecified; E11.42 Type 2 diabetes mellitus with diabetic polyneuropathy; E11.22 Type 2 diabetes mellitus with diabetic chronic kidney disease; N18.30 Chronic kidney disease, stage 3 unspecified; J45.909 Unspecified asthma, uncomplicated; E66.9 Obesity, unspecified; Z68.33 Body mass index [BMI] 33.0-33.9, adult; F32.A Depression, unspecified; Z79.4 Long term (current) use of insulin; R47.1 Dysarthria and anarthria; F41.9 Anxiety disorder, unspecified; E78.5 Hyperlipidemia, unspecified; R29.715 NIHSS score 15; R29.710 NIHSS score 10; G47.33 Obstructive sleep apnea (adult) (pediatric); I95.1 Orthostatic hypotension; M51.9 Unspecified thoracic, thoracolumbar and lumbosacral intervertebral disc disorder; K21.9 Gastro-esophageal reflux disease without esophagitis; M10.9 Gout, unspecified; M19.90 Unspecified osteoarthritis, unspecified site; I83.90 Asymptomatic varicose veins of unspecified lower extremity; I25.10 Atherosclerotic heart disease of native coronary artery without angina pectoris; G89.29 Other chronic pain; M41.9 Scoliosis, unspecified; Z91.148 Patient's other noncompliance with medication regimen for other reason; Z91.199 Patient's noncompliance with other medical treatment and regimen due to unspecified reason; Z79.82 Long term (current) use of aspirin; Z79.899 Other long term (current) drug therapy; Z86.73 Personal history of transient ischemic attack (TIA), and cerebral infarction without residual deficits; Z95.810 Presence of automatic (implantable) cardiac defibrillator; Z96.653 Presence of artificial knee joint, bilateral; Z98.1 Arthrodesis status
CPT/HCPCS: 36415; 36430; 37195; 70450; 70496; 70498; 71045; 80053; 82550; 84484; 85025; 85610; 85730; 86850; 86900; 86901; 87636; 93005; 96361; 96365; 96366; 96368; 96375; 99291